=== PATIENT | male | born 1950 | race Caucasian/White ===

== ENCOUNTER 2022-12-01 10:54 | Outpatient (OUT) | payer MEDICARE, SELFPAY ==
--- NOTE | 2022-12-01 11:04 | ECG_ITS ---
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
--- NOTE | 2022-12-01 11:24 | XR_ITS ---
[address] [address] Patient Name: LUCIE HIGH MRN: [id number] date: 1950 Sex: M Assigned Patient Location: [facility] Current Patient Location: [facility] Accession/Order Number: [id number] Exam Date: 12/01/2022 11:49 Report Date: 12/01/2022 12:16 At the request of: ONOFRE AHN Procedure: XR chest 2V EXAM: XR chest 2V HISTORY: CAD COMPARISON: None. TECHNIQUE: PA and lateral views of the chest. FINDINGS: The cardiomediastinal silhouette is normal. No focal consolidation is identified. There is no pneumothorax. No pleural effusion is noted. The osseous structures are intact. IMPRESSION: No acute cardiopulmonary process. Electronically authenticated by: GERRY CORREA Date: 12/01/2022 12:16
[2022-12-01 11:58] LABS: Basophils Absolute Auto 0.1 10^3/uL (0.0-0.1); Basophils Percent Auto 0.8 % (0.2-2.0); Eosinophils Absolute Auto 0.5 10^3/uL (0.0-0.7); Hematocrit 44.4 % (42.0-54.0); Hemoglobin 14.4 g/dL (14.0-18.0); Immature Granulocytes Abs Auto 0.04 10^3/uL (0.00-0.03); Immature Granulocytes Pct Auto 0.5 % (0.0-0.5); Lymphocytes Percent Auto 26.9 % (20.5-60.0); Mean Corpuscular HGB Conc 32.4 g/dL (29.9-35.2); Mean Corpuscular Hemoglobin 27.1 pg (25.9-34.0); Mean Corpuscular Volume 83.5 fL (80.0-94.0); Mean Platelet Volume 8.8 fL (9.5-13.5); Monocytes Absolute Auto 0.6 10^3/uL (0.3-0.8); Monocytes Percent Auto 7.5 % (1.7-12.0); Neutrophils Absolute Auto 4.3 10^3/uL (1.4-6.5); Neutrophils Percent Auto 57.3 % (43.0-75.0); Platelet Count 196 10^3/uL (150-450); Red Blood Count 5.32 10^6/uL (4.70-6.10); Red Cell Distribution Width 14.1 % (11.0-15.0); White Blood Count 7.6 10^3/uL (4.0-11.0)
[2022-12-01 12:24] LABS: INR 0.99; Prothrombin Time 10.5 sec (9.0-11.6)
[2022-12-01 12:36] LABS: Anion Gap 10.7; BUN Creatinine Ratio 13.6; Calcium 9.2 mg/dL (8.5-10.1); Carbon Dioxide 28.7 mmol/L (21.0-32.0); Chloride 103 mmol/L (98-107); Estimated GFR (African America >60 (>=60); Estimated GFR (Non-African Ame >60 (>=60); Glucose 139 mg/dL (74-106); Potassium 4.4 mmol/L (3.5-5.1); Sodium 138 mmol/L (136-145)
== END 2022-12-01 10:55 | disposition home or self-care (01) ==
LOC: PST 10:56
PROVIDERS: Surgery; PCP Internal Medicine
DX: Z01.812 Encounter for preprocedural laboratory examination (principal); Z01.810 Encounter for preprocedural cardiovascular examination; K40.90 Unilateral inguinal hernia, without obstruction or gangrene, not specified as recurrent; Z01.818 Encounter for other preprocedural examination
CPT/HCPCS: 36415; 71046; 80048; 85025; 85610; 85730; 93005

== ENCOUNTER 2022-12-10 11:39 | Observation (INO) | payer MEDICARE, SELFPAY ==
[2022-12-01 11:23] VITALS: BP 171/93; PULSE 75; RESP 18; TEMP 36.3; O2SAT 95; BMI 31.3
[2022-12-10] VITALS (24 sets, daily range): BP systolic 145–173; BP diastolic 64–100; PULSE 66–79; RESP 2–23; TEMP 36.2–36.8; O2SAT 89–98; BMI 30.8
[2022-12-10 08:13] LABS: Glucometer 137 mg/dL (74-106)
[2022-12-10] MEDS: LACTATED RINGER'S SOLUTION 1,000 ML 50 ML IV ×2 (08:37→12:13)
[2022-12-10] MEDS: CEFAZOLIN SODIUM/DEXTROSE,ISO 2 GM/50 ML PIGGYBACK IV (09:24)
[2022-12-10] MEDS: BUPIVACAINE HCL 0.25% PF 25 MG/10 ML VIAL INJ (09:59)
[2022-12-10] MEDS: CEFAZOLIN SODIUM 1,000 MG VIAL 1000 MG IRR (10:11)
[2022-12-10] MEDS: 0.9 % SODIUM CHLORIDE 10 ML INJ (10:12)
[2022-12-10] MEDS: 0.9 % SODIUM CHLORIDE 1,000 ML 75 ML IV (10:53)
--- NOTE | 2022-12-10 11:35 | OP_ITS ---
OPERATION DATE: ??12/10/2022 PREOPERATIVE DIAGNOSIS:? Left inguinal hernia. POSTOPERATIVE DIAGNOSIS:? Indirect left inguinal hernia and cord lipoma. PROCEDURE:? Left inguinal herniorrhaphy with Bard 5 x 10 cm mesh insertion. SURGEON:? Dakota San M.D. ANESTHESIA:? General with laryngeal mask airway as well as left sided TAP block per Dr. Maurer. ESTIMATED BLOOD LOSS:? Less than 20 mL. INDICATIONS AND CONSENT:? Patient is a 72-year-old male with a long history of enlarging, left inguinal hernia going down into the scrotum that is non- reducible.? Indications, risks, benefits, alternatives of proceeding with herniorrhaphy with mesh insertion were explained extensively to the patient, including the risks of bleeding, infection, scarring, pain, recurrence, nerve injury, testicular injury, bowel injury, blood clot, pulmonary embolus, heart attack, anesthetic complications, need for further surgery or mesh removal.? All of his questions were answered.? Informed consent was obtained. PROCEDURE:? Patient brought to the operating room, placed in the supine position.? General anesthesia was induced.? Left sided TAP block was performed by Dr. Maurer.? Patient was prepped and draped in the usual sterile fashion.? A left groin incision was made in the area of the skin crease and carried down through subcutaneous tissue using sharp dissection as well as electrocautery.? Jovon?s fascia was divided.? The external oblique was opened along the dorsum of its fibers, down to the external inguinal ring.? Cord structures were then mobilized and retracted with a Declan drain.? There was noted to be a large cord lipomas as well as an indirect sac, with extensive scarring around the hernia sac.? The cord lipoma as well as hernia sac were freed up from the cord structures.? The scarred cremasteric fibers were divided.? The cord lipoma and hernia sac were reduced back through the enlarged internal ring.? This was then closed with interrupted 2-0 Prolene suture.? The wound was irrigated with antibiotic saline.? There was good hemostasis.? The Bard patch was then trimmed and a keyhole was created.? It was placed in the floor of the inguinal canal.? The arms were placed around the cord structures.? It was then secured circumferentially using interrupted 3-0 Monocryl sutures with good hemostasis.? Care was taken to avoid undue tension on the cord structures. ?The wound was irrigated with antibiotic saline.? There was good hemostasis.? The external oblique was closed with running 3-0 Vicryl suture.? The remaining Exparel solution was injected into the subcutaneous tissue.? Jovon?s fascia was re- approximated with interrupted 3-0 Monocryl suture.? The skin was then closed with a running 4-0 subcuticular Monocryl suture and skin glue.? Sterile pressure dressing was applied.? Sponge and needle counts were correct x2 per nursing personnel.? Patient tolerated procedure well, was extubated and sent to recovery room in good condition. CC:? Weston Borja M.D. YANN
--- NOTE | 2022-12-10 12:37 | PC.NURSE ---
BULKY DRESSING LEFT GROIN AREA CLEAR DRY AND INTACT.
[2022-12-10] MEDS: KETOROLAC TROMETHAMINE 30 MG/ML VIAL 15 MG IVP ×3 (13:11→23:58)
--- NOTE | 2022-12-10 13:25 | PC.NURSE ---
1202 THIS PATIENT WAS TRANSFERED TO MED SURG AND REPORT WAS GIVEN TO JAZMINE RANGEL RN.
[2022-12-10] MEDS: METFORMIN HCL 500 MG TABLET PO (18:19)
[2022-12-10] MEDS: CARVEDILOL 12.5 MG TABLET PO (18:53)
[2022-12-10 20:41] LABS: Glucometer 196 mg/dL (74-106)
[2022-12-10] MEDS: DOCUSATE SODIUM 100 MG CAPSULE PO (21:20)
[2022-12-10] MEDS: INSULIN ASPART 300 UNIT/3 ML PEN SUBQ (21:20)
[2022-12-11 05:20] VITALS: BP 159/74; PULSE 76; RESP 18; TEMP 36.8; O2SAT 94
[2022-12-11 05:21] LABS: Basophils Percent Auto 0.3 % (0.2-2.0); Eosinophils Percent Auto 0.1 % (0.9-7.0); Hematocrit 38.6 % (42.0-54.0); Hemoglobin 12.7 g/dL (14.0-18.0); Immature Granulocytes Abs Auto 0.04 10^3/uL (0.00-0.03); Immature Granulocytes Pct Auto 0.4 % (0.0-0.5); Lymphocytes Absolute Auto 1.7 10^3/uL (1.2-3.8); Lymphocytes Percent Auto 16.1 % (20.5-60.0); Mean Corpuscular HGB Conc 32.9 g/dL (29.9-35.2); Mean Corpuscular Hemoglobin 27.3 pg (25.9-34.0); Mean Platelet Volume 9.3 fL (9.5-13.5); Monocytes Absolute Auto 1.1 10^3/uL (0.3-0.8); Monocytes Percent Auto 10.5 % (1.7-12.0); Neutrophils Absolute Auto 7.6 10^3/uL (1.4-6.5); Neutrophils Percent Auto 72.6 % (43.0-75.0); Platelet Count 182 10^3/uL (150-450); Red Blood Count 4.65 10^6/uL (4.70-6.10); White Blood Count 10.4 10^3/uL (4.0-11.0)
[2022-12-11 05:43] LABS: Anion Gap 13.6; BUN Creatinine Ratio 16.7; Calcium 8.6 mg/dL (8.5-10.1); Carbon Dioxide 25.4 mmol/L (21.0-32.0); Chloride 103 mmol/L (98-107); Estimated GFR (African America >60 (>=60); Estimated GFR (Non-African Ame >60 (>=60); Glucose 133 mg/dL (74-106); Sodium 138 mmol/L (136-145)
[2022-12-11] MEDS: KETOROLAC TROMETHAMINE 30 MG/ML VIAL 15 MG IVP (06:01)
--- NOTE | 2022-12-11 08:02 | PM.GSPN ---
Progress Note: A&P Assessment and Plan (1) Incarcerated left inguinal hernia: Plan doing well; discharge to home; regular diet, no lifting > 10 lbs for 4 weeks; no driving while taking the pain medication; may shower, no tub baths; take ibuprofen as needed for pain with food; [place] if more severe pain; take colace daily if taking [place]; follow up in 1 week, call with problems/questions. Subjective Subjective Interval history: POD # 1 s/p LIHR with mesh for large indirect hernia doing well, pain controlled with Toradol, voiding well, ambulating; tolerating regular diet. Exam Constitutional Vital Signs, click to edit/add: Last Vital Signs Temp 98.3 F 12/11/22 05:20 Pulse 76 12/11/22 05:20 Resp 18 12/11/22 05:20 BP 159/74 H 12/11/22 05:20 Pulse Ox 94 L 12/11/22 05:20 O2 Del Method Room Air 12/11/22 05:20 O2 Flow Rate 2 12/10/22 11:52 GI Other: obese, soft, normal bs, nontender, nondistended; incision without erythema or drainage, no ecchymoses.
[2022-12-11] MEDS: DOCUSATE SODIUM 100 MG CAPSULE PO (08:48)
[2022-12-11] MEDS: SOLIFENACIN SUCCINATE 10 MG TABLET PO (08:48)
[2022-12-11] MEDS: CARVEDILOL 12.5 MG TABLET PO (08:48)
[2022-12-11] MEDS: METFORMIN HCL 500 MG TABLET PO (08:48)
--- NOTE | 2022-12-11 09:01 | CM.NOTE ---
Rounds made with roberth [place] for discharge to home today. No discharge needs identified, pt will also f/u with Dr. San
--- NOTE | 2022-12-11 09:44 | PM.PN ---
Progress Note: Subjective Subjective Interval history: Asked to see patient in postop. For management of diabetes and hypertension. Patient with no complaints this morning Exam Constitutional Vital Signs, click to edit/add: Last Vital Signs Temp 98.3 F 12/11/22 05:20 Pulse 76 12/11/22 05:20 Resp 18 12/11/22 05:20 BP 159/74 H 12/11/22 05:20 Pulse Ox 94 L 12/11/22 05:20 O2 Del Method Room Air 12/11/22 05:20 O2 Flow Rate 2 12/10/22 11:52 Chest Common normals: inspection of chest normal Respiratory Common normals: normal respiratory effort Cardio Common normals: regular rate and regular rhythm Progress Note: Objective Labs Labs: Short CBC 12/11/22 Range/Units 04:40 WBC 10.4 (4.0-11.0) 10^3/uL Hgb 12.7 L (14.0-18.0) g/dL Hct 38.6 L (42.0-54.0) % Plt Count 182 (150-450) 10^3/uL BMP 12/11/22 04:40 Sodium 138 Potassium 4.0 Chloride 103 Carbon Dioxide 25.4 BUN 16.0 Creatinine 0.96 Glucose 133 H Calcium 8.6 Progress Note: A&P Assessment and Plan (1) Incarcerated left inguinal hernia: (2) Diabetes: Assessment and Plan: Sugar is up a little bit with the surgery. Not significantly. We will not need insulin at home. Medically stable for discharge (3) Hypertension: Assessment and Plan: Fairly well-controlled, likely to go up a little bit with surgery. Maintain current medications at home
== END 2022-12-11 09:42 | disposition home or self-care (01) ==
LOC: MS 12:53 → SURGOUT 12-11 07:59
PROVIDERS: Admitting Provider Surgery; PCP Internal Medicine; Visit Provider Surgery
PROC: (CPT 49507; principal; 2022-12-10 10:00)
DX: K40.30 Unilateral inguinal hernia, with obstruction, without gangrene, not specified as recurrent (principal); I25.10 Atherosclerotic heart disease of native coronary artery without angina pectoris; I10 Essential (primary) hypertension; E11.9 Type 2 diabetes mellitus without complications; E78.00 Pure hypercholesterolemia, unspecified; K21.9 Gastro-esophageal reflux disease without esophagitis; I25.2 Old myocardial infarction; N40.1 Benign prostatic hyperplasia with lower urinary tract symptoms; R39.11 Hesitancy of micturition; R35.1 Nocturia; E66.9 Obesity, unspecified; R39.15 Urgency of urination; R39.12 Poor urinary stream; D17.6 Benign lipomatous neoplasm of spermatic cord; Z79.82 Long term (current) use of aspirin; Z79.899 Other long term (current) drug therapy; Z79.84 Long term (current) use of oral hypoglycemic drugs; Z68.33 Body mass index [BMI] 33.0-33.9, adult
CPT/HCPCS: 49507; 36415; 64488; 80048; 82948; 85025; 94667; 94668; 94761; 96374; 96376; C1781; G0378; J2704

== ENCOUNTER 2023-01-26 00:08 | Emergency (ER) | payer MEDICARE, SELFPAY ==
[2023-01-26 00:12] VITALS: BP 171/86; PULSE 82; RESP 18; TEMP 36.7; O2SAT 98; BMI 28.7
--- NOTE | 2023-01-26 00:27 | PC.NURSE ---
patient states he has sensation of tingling, cold , and burning to both legs. states it goes from feet up to knees. patient is ambulatory from waiting room to ER room with independent and steady gait, also states he was able to drive himself to the ER. patient states he is currently taking cipro and read that tendinitis can be a side effect of the medication and he is worried that is what he is currently experiencing.
--- NOTE | 2023-01-26 00:37 | ED.GENADUL1 ---
HPI - General Adult General Chief complaint: Extremity Injury, Lower Stated complaint: NUMBNESS IN BOTH LEGS Time Seen by Provider: 01/26/23 00:21 Source: patient Mode of arrival: walk-in History of Present Illness HPI narrative: chronic history of peripheral neuropathy of his lower extremities for at least the past 4 years. 1.5 weeks ago diagnosed with Colitis and prescribed Cipro and Flagyl. Developed worsening neuropathy and decided it was from Cipro and d/kelsey it . then developed diarrhea and felt it was related to Flagyl. . Seen by his doctor and directed to use antacids and follow liquid diet and use probiotics. States his abdomen has finally improved. Tonight again concerned about neuropathy of his legs. No weakness or fever Related Data Home Medications Medication Instructions Recorded Confirmed aspirin 81 mg tablet,delayed 81 mg PO DAILY 12/01/22 01/26/23 release (Adult Aspirin Regimen) carvedilol 12.5 mg tablet 12.5 mg PO Q12H 12/01/22 01/26/23 fluticasone propionate 50 1 spray intranasal Q12H 12/01/22 01/26/23 mcg/actuation nasal spray,suspension losartan 50 mg-hydrochlorothiazide 1 tab PO QDAY 12/01/22 01/26/23 12.5 mg tablet metformin 1,000 mg tablet 500 mg PO BID 12/01/22 01/26/23 rosuvastatin 5 mg tablet 5 mg PO QDAY 12/01/22 01/26/23 tolterodine 4 mg capsule,extended 4 mg PO Q24H 12/01/22 12/10/22 release 24 hr Previous Rx's Medication Instructions Recorded hydrocodone 5 mg-acetaminophen 325 1 tab PO Q6H PRN Pain Scale 4-6 12/11/22 mg tablet #12 tabs Allergies Allergy/AdvReac Type Severity Reaction Status Date / Time Penicillins Allergy muscle Verified 01/26/23 00:12 numbness Review of Systems ROS Status of ROS 10 or more systems reviewed and unremarkable except as noted in history and below [facility] Medical History (Updated 01/26/23 @ 01:54 by Brett Garduno MD) Surgical History (Updated 12/10/22 @ 08:10 by Gisselle Nagel) Family History (Updated 12/01/22 @ 11:31 by Jayda Martinez NP) Other Family history of heart disease Family history of hypertension Family history of myocardial infarction Family history of skin cancer Social History (Updated 12/01/22 @ 11:22 by Jayda Martinez NP) Within the past year, how often did you have a drink containing alcohol: monthly or less Smoking status: Never smoker Non-prescribed substance use: denies use Highest level of school completed/degree received: high school graduate Exam Constitutional Vital Signs, click to edit/add: Last Vital Signs Temp 98.1 F 01/26/23 00:12 Pulse 82 01/26/23 00:12 Resp 18 01/26/23 00:12 BP 171/86 H 01/26/23 00:12 Pulse Ox 98 01/26/23 00:12 O2 Del Method Room Air 01/26/23 00:12 Common normals: no apparent distress, average body habitus, no limitations, healthy appearing and alert Eye Common normals: EOMs intact bilaterally and conjunctivae normal Respiratory Common normals: normal respiratory effort, no retractions, no use of accessory muscles and clear to auscultation bilaterally Cardio Common normals: regular rate, regular rhythm, S1 normal heart sound and S2 normal heart sound GI Common normals: Normal to inspection, nondistended, normoactive bowel sounds present, soft to palpation and non-tender Extremity Common normals: normal to inspection and full ROM Neuro Common normals: oriented x3, CN's II-XII intact bilaterally, moves all extremities and no focal motor deficits Psych Appearance: grossly normal Course Vital Signs Vital signs: Vital Signs Temperature 98.1 F 01/26/23 00:12 Pulse Rate 82 01/26/23 00:12 Respiratory Rate 18 01/26/23 00:12 Blood Pressure 171/86 H 01/26/23 00:12 Pulse Oximetry 98 01/26/23 00:12 Oxygen Delivery Method Room Air 01/26/23 00:12 Temperature 98.1 F 01/26/23 00:12 Pulse Rate 82 01/26/23 00:12 Respiratory Rate 18 01/26/23 00:12 Blood Pressure 171/86 H 01/26/23 00:12 Pulse Oximetry 98 01/26/23 00:12 Oxygen Delivery Method Room Air 01/26/23 00:12 Medical Decision Making MDM Narrative Medical decision making narrative: patient has chronic history of peripheral neuropathy. Describes taking cipro for only a few days and worsening of his neuropathy. Exam tonight unremarkable except for known neuropathy. B12 level pending but patient did not want to wait for the results. Discharged home to follow up with his doctor. Discharged in stable condition Lab Data Labs: Lab Results 01/26/23 Range/Units 00:48 WBC 7.1 (4.0-11.0) 10^3/uL RBC 5.03 (4.70-6.10) 10^6/uL Hgb 13.5 L (14.0-18.0) g/dL Hct 41.8 L (42.0-54.0) % MCV 83.1 (80.0-94.0) fL MCH 26.8 (25.9-34.0) pg MCHC 32.3 (29.9-35.2) g/dL RDW 13.6 (11.0-15.0) % Plt Count 204 (150-450) 10^3/uL MPV 9.3 L (9.5-13.5) fL Neut % (Auto) 47.5 (43.0-75.0) % Lymph % (Auto) 36.3 (20.5-60.0) % [place] % (Auto) 9.9 (1.7-12.0) % Eos % (Auto) 5.4 (0.9-7.0) % Baso % (Auto) 0.6 (0.2-2.0) % Neut # (Auto) 3.4 (1.4-6.5) 10^3/uL Lymph # (Auto) 2.6 (1.2-3.8) 10^3/uL [place] # (Auto) 0.7 (0.3-0.8) 10^3/uL Eos # (Auto) 0.4 (0.0-0.7) 10^3/uL Baso # (Auto) 0.0 (0.0-0.1) 10^3/uL Abs Immat Gran (auto) 0.02 (0.00-0.03) 10^3/uL Imm/Tot Granulo (auto) 0.3 (0.0-0.5) % Sodium 134 L (136-145) mmol/L Potassium 4.0 (3.5-5.1) mmol/L Chloride 100 (98-107) mmol/L Carbon Dioxide 28.2 (21.0-32.0) mmol/L Anion Gap 9.8 BUN 10.0 (7.0-18.0) mg/dL Creatinine 1.13 (0.70-1.30) mg/dL Est GFR ( Amer) >60 (>=60) Est GFR (Non-Af Amer) >60 (>=60) BUN/Creatinine Ratio 8.8 Glucose 123 H (74-106) mg/dL Calcium 8.9 (8.5-10.1) mg/dL Magnesium 1.9 (1.8-2.4) mg/dL Discharge Plan Discharge Chief Complaint: Extremity Injury, Lower Clinical Impression: Peripheral neuropathy Patient Disposition: Home, Self-Care Prescriptions / Home Meds: No Action aspirin [Adult Aspirin Regimen] 81 mg tablet,delayed release (DR/EC) 81 mg PO DAILY carvedilol 12.5 mg tablet 12.5 mg PO Q12H fluticasone propionate 50 mcg/actuation spray,suspension 1 spray INTRANASAL Q12H losartan-hydrochlorothiazide 50-12.5 mg tablet 1 tab PO QDAY metformin 1,000 mg tablet 500 mg PO BID rosuvastatin 5 mg tablet 5 mg PO QDAY tolterodine 4 mg capsule,extended release 24hr 4 mg PO Q24H hydrocodone-acetaminophen 5-325 mg Tablet 1 tab PO Q6H PRN (Reason: Pain Scale 4-6) Qty: 12 0RF Instructions: Peripheral Neuropathy (ED) Additional Instructions: follow up with Dr Borja in the next few days Stand Alone Forms: Portal Instructions Referrals: GERSON BORJA [Primary Care Provider] - 1 week
[2023-01-26 00:58] LABS: Basophils Percent Auto 0.6 % (0.2-2.0); Eosinophils Absolute Auto 0.4 10^3/uL (0.0-0.7); Eosinophils Percent Auto 5.4 % (0.9-7.0); Hematocrit 41.8 % (42.0-54.0); Hemoglobin 13.5 g/dL (14.0-18.0); Immature Granulocytes Abs Auto 0.02 10^3/uL (0.00-0.03); Immature Granulocytes Pct Auto 0.3 % (0.0-0.5); Lymphocytes Absolute Auto 2.6 10^3/uL (1.2-3.8); Lymphocytes Percent Auto 36.3 % (20.5-60.0); Mean Corpuscular HGB Conc 32.3 g/dL (29.9-35.2); Mean Corpuscular Hemoglobin 26.8 pg (25.9-34.0); Mean Corpuscular Volume 83.1 fL (80.0-94.0); Mean Platelet Volume 9.3 fL (9.5-13.5); Monocytes Absolute Auto 0.7 10^3/uL (0.3-0.8); Monocytes Percent Auto 9.9 % (1.7-12.0); Neutrophils Absolute Auto 3.4 10^3/uL (1.4-6.5); Neutrophils Percent Auto 47.5 % (43.0-75.0); Platelet Count 204 10^3/uL (150-450); Red Blood Count 5.03 10^6/uL (4.70-6.10); Red Cell Distribution Width 13.6 % (11.0-15.0); White Blood Count 7.1 10^3/uL (4.0-11.0)
[2023-01-26 01:10] LABS: Anion Gap 9.8; BUN Creatinine Ratio 8.8; Calcium 8.9 mg/dL (8.5-10.1); Carbon Dioxide 28.2 mmol/L (21.0-32.0); Chloride 100 mmol/L (98-107); Estimated GFR (African America >60 (>=60); Estimated GFR (Non-African Ame >60 (>=60); Glucose 123 mg/dL (74-106); Magnesium 1.9 mg/dL (1.8-2.4); Sodium 134 mmol/L (136-145)
== END 2023-01-26 01:57 | disposition home or self-care (01) ==
PROVIDERS: Emergency Provider Internal Medicine; PCP Internal Medicine
DX: G62.9 Polyneuropathy, unspecified (principal); Z79.899 Other long term (current) drug therapy; Z79.82 Long term (current) use of aspirin; Z79.84 Long term (current) use of oral hypoglycemic drugs
CPT/HCPCS: 36415; 80048; 82607; 83735; 85025; 99283

== ENCOUNTER 2023-02-24 12:57 | Outpatient (RCR) | payer MEDICARE, SELFPAY | END 2023-03-27 16:33 | disposition home or self-care (01) | LOC: PT 12:57 | PROVIDERS: PCP Internal Medicine; Visit Provider Internal Medicine | DX: M54.50 Low back pain, unspecified (principal); M54.59 Other low back pain; M54.16 Radiculopathy, lumbar region; R29.3 Abnormal posture; R26.89 Other abnormalities of gait and mobility; R26.9 Unspecified abnormalities of gait and mobility | CPT/HCPCS: 97010; 97110; 97161 ==

== ENCOUNTER 2023-03-12 09:55 | Outpatient (REF) | payer MEDICARE, SELFPAY ==
[2023-03-12 14:46] LABS: SARS-CoV-2 NAA NOT DETECTED (NOT DETECTE)
== END 2023-03-12 09:56 | disposition home or self-care (01) ==
LOC: LAB 09:55
PROVIDERS: PCP Internal Medicine; Visit Provider Internal Medicine
DX: Z20.822 Contact with and (suspected) exposure to COVID-19 (principal); R05.1 Acute cough
CPT/HCPCS: 87635

== ENCOUNTER 2023-11-26 15:25 | Outpatient (OUT) | payer MEDICARE, SELFPAY ==
--- NOTE | 2023-11-26 | XR_ITS ---
The [address] [address] Patient Name: LUCIE HIGH MRN: [id number] date: 1950 Sex: M Assigned Patient Location: [facility] Current Patient Location: [facility] Accession/Order Number: [id number] Exam Date: 11/26/2023 15:40 Report Date: 11/26/2023 15:56 At the request of: GERSON RODRIGUEZ Procedure: XR hip JAMIE EXAMINATION: XR hip JAMIE HISTORY: Bilateral hip pain m25.551, m25.552 COMPARISON: No relevant comparison available. FINDINGS: RIGHT FINDINGS: BONES: No acute fracture or dislocation. Mild degenerative osteoarthropathy with joint space narrowing marginal osteophyte formation. SOFT TISSUES: Negative. No visible soft tissue swelling. OTHER: Negative. LEFT FINDINGS: BONES: No acute fracture or dislocation. Mild degenerative osteoarthropathy with joint space narrowing marginal osteophyte formation. SOFT TISSUES: Negative. No visible soft tissue swelling. OTHER: Negative. XR/XR hip JAMIE IMPRESSION: Mild bilateral hip osteoarthritis Electronically authenticated by: KALEB MURO Date: 11/26/2023 15:56
--- NOTE | 2023-11-26 | XR_ITS ---
The [address] [address] Patient Name: LUICE HIGH MRN: [id number] date: 1950 Sex: M Assigned Patient Location: [facility] Current Patient Location: [facility] Accession/Order Number: [id number] Exam Date: 11/26/2023 15:40 Report Date: 11/26/2023 16:14 At the request of: GERSON RODRIGUEZ Procedure: XR lumbar spine 2-3V EXAMINATION: XR lumbar spine 2-3V HISTORY: Bilateral hip pain m25.551, m25.552 r COMPARISON: No relevant comparison available. FINDINGS: BONES: 9 mm anterolisthesis of L5 in relation S1. 4 mm retrolisthesis of L1 on L2. Mild spondylosis. Moderate to severe facet osteoarthropathy DISC SPACES: Multilevel disc space narrowing. Vacuum disc L5-S1. PARASPINOUS: Negative. No paraspinous abnormality is seen. OTHER: Negative. XR/XR lumbar spine 2-3V IMPRESSION: Moderate to severe degenerative changes with multilevel spondylolisthesis Electronically authenticated by: KALEB MURO Date: 11/26/2023 16:14
== END 2023-11-26 15:26 | disposition home or self-care (01) ==
LOC: RAD 15:28
PROVIDERS: PCP Internal Medicine; Visit Provider Internal Medicine
DX: M25.551 Pain in right hip (principal); M25.552 Pain in left hip; M16.0 Bilateral primary osteoarthritis of hip
CPT/HCPCS: 72100; 73522

== ENCOUNTER 2024-07-17 22:41 | Emergency (ER) | payer MEDICARE, SELFPAY ==
[2024-07-17] VITALS (9 sets, daily range): BP systolic 169–201; BP diastolic 81–92; PULSE 73–81; TEMP 36.8; O2SAT 96–98; BMI 31.6
--- OUTSIDE RECORDS SUMMARY | 2024-07-17 22:47 | XMS_ITS | CCD ---
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 Cosmo Torrez Attending Unavailable Emily BARRERA, Dr. Cosmo Torrez Referring Unavailable WESTON BORJA Primary Care Physician [phone] LEONARD ESPITIA Admitting Unavailable JENNIFER, DR NIETO Primary Care Unavailable LEONARD ESPITIA Attending Unavailable LEONARD ESPITIA Consulting Unavailable ZENIPPKALEB REESE Unavailable JENNIFER, DR NIETO Admitting Unavailable JENNIFER, DR NIETO Attending Unavailable JENNIFER, DR NIETO Consulting Unavailable JENNIFER, DR NIETO Primary Care Unavailable TESMOND, FRANKIE Primary Care Unavailable TESMOND, FRANKIE Admitting Unavailable TESMOND, FRANKIE Attending Unavailable TESORAL, FRANKIE Consulting Unavailable TESORAL, FRANKIE Primary Care Unavailable TESORAL, FRANKIE Admitting Unavailable TESMOND, FRANKIE Attending Unavailable TESORAL, FRANKIE Consulting Unavailable BORJA, DR NIETO Primary Care Unavailable HEMMER, DR TITA Juarez Attending Unavailable HEMMER, DR TITA Juarez Consulting Unavailable HEMMER, DR TITA Juarez Admitting Unavailable JENNIFER, DR NIETO Primary Care Unavailable SYLVIAUINMaxine, DR VANG Attending Unavailable MCGUINN, DR VANG Consulting Unavailable SYLVIAUINN, DR VANG Admitting Unavailable LEONARD ESPITIA Admitting Unavailable JENNIFER, DR NIETO Primary Care Unavailable LEONARD ESPITIA Attending Unavailable LEONARD ESPITIA Consulting Unavailable NILLDakota Attending Unavailable NILL, Dakota Hoang Attending Unavailable NILL, Dakota Hoang Attending Unavailable NILL, Dakota Hoang Attending Unavailable NILL, Dakota Hoang Attending Unavailable NILL, Dakota Hoang Attending Unavailable Shan SU Attending Unavailable WESTON BORJA Referring Unavailable Dakota AHN Attending Unavailable Weston Borja Unavailable Unavailable Unavailable Weston Borja MD Unavailable [phone] Weston Borja MD Primary Care Provider Thursday MOUNTER SOUSAPHONESMercedez Unavailable TITA WESTBROOK Attending Unavailable PALOMINOTAMARA HARO Attending Unavailable BORJA, WESTON B Attending Unavailable BROWN, BRAXTON Sun Attending Unavailable BORJA, WESTON B Referring Unavailable TAMARA PALOMINO Attending Unavailable BROWN, BRAXTON A Attending Unavailable BROWN, BRAXTON A Attending Unavailable BORJA, WESTON B Attending Unavailable BROWN, BRAXTON A Attending Unavailable BORJA, WESTON B Attending Unavailable BORJA, WESTON B Attending Unavailable BLACKSTON, ALEXIS Barbosa Attending Unavailable BORJA, WESTON B Referring Unavailable BRINK, SYBIL Attending Unavailable BORJA, WESTON B Referring Unavailable BRINK, SYBIL Attending Unavailable BORJA, WESTON B Referring Unavailable BRINK, SYBIL Attending Unavailable BORJA, WESTON B Referring Unavailable BORJA, WESTON B Attending Unavailable BLACKSTON, ALEXIS T Attending Unavailable BORJA, WESTON B Referring Unavailable BRINK, SYBIL Attending Unavailable BORJA, WESTON B Referring Unavailable BLACKSTON, ALEXIS T Attending Unavailable BORJA, WESTON B Referring Unavailable KELBLEYCLARISA Attending Unavailable BORJA, WESTON B Referring Unavailable BRINK, SYBIL Attending Unavailable BORJA, WESTON B Referring Unavailable BRINK, SYBIL Attending Unavailable BORJA, WESTON B Referring Unavailable BRINK, SYBIL Attending Unavailable BORJA, WESTON B Referring Unavailable BRINK, SYBIL Attending Unavailable BORJA, WESTON B Referring Unavailable BRINK, SYBIL Attending Unavailable BORJA, WESTON B Referring Unavailable BORJA, WESTON B Attending Unavailable Allergies Allergy Classification Reported Allergen(s) Allergy Type Date of Onset Reaction(s) Facility (1 source) Penicillin G Drug Allergy Unknown [facility] Other (20 sources) Penicillins; Translations: [penicillins] Drug allergy 3 Asthenia (finding) [facility] (20 sources) Penicillin V Drug Allergy 3 [facility] (20 sources) Ciprofloxacin Drug Allergy 4 Other [facility] Work Phone: Medications Current Medications Medication Drug Class(es) Dates Sig (Normalized) Sig (Original) aspirin 81 mg oral tablet (7 sources) Platelet Aggregation Inhibitor, Nonsteroidal Anti-inflammatory Drug Start: 04-05-2019 take 1 tablet by mouth once daily aspirin 81 mg oral tablet 81 mg = 1 tab(s), Oral, Daily, Refills(s) 0 Start Date: 04/05/19 Status: Ordered Aspirin EC 81 MG TBEC TAKE 1 TABLET DAILY. Quantity: 0 Refills: 0 Ordered: 01-Sep-2022 DO Active take 1 tablet by basim th every twenty-four hours Aspirin 81 MG 1 tablet Orally Once a day Active carvedilol 12.5 mg oral tablet (20 sources) alpha-Adrenergic Horacio, beta-Adrenergic Horacio Start: 12-08-2023 Carvedilol Activ e MG PO December 08, 2023 12:00am Start: 10-01-2022 End: 04-20-2024 carvedilol (Coreg) 12.5 MG t ablet Indications: Essential (primary) hypertension (CMS/HCC) TAKE 1 TABLET TWICE DAILY 180 tablet 3 04/20/2024 Active Coreg 3.125 MG O rally Active fluticasone propionate 0.05 mg/actuat metered dose nasal spray (20 sources) Corticosteroid Start: 05-10-2024 take 2 spray(s) nasal route once daily fluticasone (Flonase) 50 MCG/ACT nasal spray Indications: Lesion of nasal cavity SPRAY 2 SPRAYS INTO EACH NOSTRIL EVERY DAY 16 mL 1 05/10/2024 Active Start: 12-11-2023 take 2 spray(s) nasa l route once daily fluticasone (Flonase) 50 MCG/ACT nasal spray Indications: Lesion of nasal cavity USE 2 SPRAYS IN EACH NOSTRIL EVERY DAY 16 mL 1 12/11/2023 Active Start: 12-08-2023 Fluticasone Pr opionate Active INTRANASAL December 08, 2023 12:00am Start: 02-16-2023 take 2 spray(s) nasa l route once daily fluticasone (Flonase) 50 MCG/ACT nasal spray Indications: Lesion of nasal cavity INHALE 2 SPRAYS IN EACH NOSTRIL EVERY DAY 16 g 3 02/16/2023 Active Start: 09-29-2022 Flonase 0.05 m g/inh [place] 2 spray(s), Nasal, Daily, Refill(s) 0 Start Date: 09/29/22 Status: Ordered take 50 ug nasal rou te once daily Flonase Allergy Relief 50 MCG/ACT Nasal Suspension USE 1 TO 2 SPRAYS IN EACH NOSTRIL ONCE DAILY. 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 0 09/01/2022 Active Start: 09-01-2022 take 1 tablet by basim th once daily hydrochlorothiazide-losartan 12.5 mg-50 mg Tab 1 tab(s), Oral, Daily, Refill(s) 0 Start Date: 10/01/22 Status: Ordered metFORMIN hydrochloride 500 mg oral tablet (7 sources) Biguanide Start: 10-01-2022 take 1 tablet by mouth twice daily metformin 500 mg Tab 500 mg = 1 tab(s), Oral, BID, Refills(s) 0 Start Date: 10/01/22 Status: Ordered take 1 tablet by basim th every twelve hours at mealtime metFORMIN HCl - 500 MG Oral Tablet TAKE 1 TABLET EVERY 12 HOURS WITH FOOD. Quantity: 0 Refills: 0 Ordered: 01-Sep-2022 DO Active take 1 tablet by basim th every twenty-four hours metFORMIN HCl 1000 MG 1 tablet with a me al Orally Once a day Active nitrofurantoin, macrocrystals 25 mg / nitrofurantoin, monohydrate 75 mg oral capsule (4 sources) Nitrofuran Antibacterial Start: 03-16-2024 End: 03-23-2024 take 1 capsule by mouth in the morning nitrofurantoin, macrocrystal-monohydrate, (Macrobid) 100 MG capsule Indications: Acute cystitis with hematuria Take 1 capsule (100 mg) by mouth in the morning and 1 capsule (100 mg) before bedtime. Do all this for 7 days. 14 capsule 03/16/2024 03/23/2024 Active Start: 03-07-2024 End: 03-14-2024 take 1 capsule by mouth in the morning nitrofurantoin, macrocrystal-monohydrate , (Macrobid) 100 MG capsule Indications: Acute cystitis with hematuria Take 1 capsule (100 mg) by mouth in the morning and 1 capsule (100 mg) before bedtime. Do all this for 5 days. 10 capsule 03/07/2024 03/14/2024 Discontinued rosuvastatin calcium 5 mg oral tablet (20 sources) HMG-CoA Reductase Inhibitor Start: 12-08-2023 Rosuvastatin Active MG PO December 08, 2023 12:00am Start: 04-05-2019 End: 04-20-2024 rosuvastatin (Crestor) 5 MG tablet Indications: Pure hypercholesterolemia, unspecified (CMS/HCC) TAKE 1 TABLET AT BEDTIME 90 tablet 3 04/20/2024 Active tamsulosin hydrochloride 0.4 mg oral capsule (20 sources) alpha-Adrenergic Horacio Start: 12-08-2023 Tamsu losin Active MG PO December 08, 2023 12:00am Start: 10-28-2023 End: 10-27-2024 take 1 capsule by mouth once daily tamsulosin (Flomax) 0.4 MG 24 hr capsule Indications: BPH with urinary obstruction Take 1 capsule (0.4 mg) by mouth Daily 30 capsule 11 10/28/2023 10/27/2024 Active thiamine 100 mg oral tablet (1 source) Start: 05-12-2023 End: 05-11-2024 take 1 tablet by mouth in the morning thiamine (Vitamin B-1) 100 MG tablet Indications: Idiopathic progressive neuropathy Take 1 tablet (100 mg) by mouth in the morning. 90 tablet 3 05/12/2023 05/11/2024 Active tolterodine tartrate 2 mg oral tablet (5 sources) Cholinergic Muscarinic Antagonist Start: 09-29-2022 take 1 tablet by mouth twice daily as needed for muscle spasms Detrol 2 mg Tab 2 mg = 1 tab(s), Oral, BID, PRN bladder spasm, Refills(s) 0 Start Date: 09/29/22 Status: Ordered Completed/Discontinued Medications Medication Drug Class(es) Dates Sig (Normalized) Sig (Original) furosemide 20 mg oral tablet (20 sources) Loop Diuretic Start: 12-10-2023 End: 05-16-2024 take 1 tablet by mouth once daily furosemide (Lasix) 20 MG tablet Indications: Localized edema Take 1 tablet (20 mg) by mouth Daily for 7 days 7 tablet 12/10/2023 05/16/2024 Discontinued pregabalin 75 mg oral capsule (20 sources) Start: 09-02-2023 End: 05-16-2024 take 1 capsule by mouth in the morning, then take 1 capsule by mouth in the evening, then take 1 capsule by mouth at bedtime pregabalin (Lyrica) 75 MG capsule Indications: Idiopathic progressive neuropathy Take 1 capsule (75 mg) by mouth in the morning and 1 capsule (75 mg) in the evening and 1 capsule (75 mg) before bedtime. 90 capsule 2 09/02/2023 05/16/2024 Discontinued Start: 05-12-2023 End: 08-10-2023 take 1 capsule by mouth in the morning, then take 1 capsule by mouth in the evening, then take 1 capsule by mouth at bedtime pregabalin (Lyrica) 25 MG capsule Indications: Idiopathic progressive neuropathy Take 1 capsule (25 mg) by mouth in the morning and 1 capsule (25 mg) in the evening and 1 capsule (25 mg) before bedtime. 270 capsule 0 05/12/2023 08/10/2023 Active Problems Active Problems Problem Classification Problem Date Documented Date Episodic/Chronic Acute myocardial infarction (20 sources) Myocardial infarction; Translations: [ST elevation (STEMI) myocardial infarction involving other coronary artery of inferior wall] Onset: 01-17-2023 05-09-2019 Chronic Administrative/social admission (2 sources) Patient encounter status; Translations: [Other specified counseling] 05-16-2024 Episodic Cardiac dysrhythmias (2 sources) Supraventricular tachycardia; Translations: [Paroxysmal supraventricular tachycardia] Onset: 10-02-2022 Chronic Cataract (20 sources) Bilateral age-related nuclear cataracts; Translations: [Age-related nuclear cataract, bilateral] Onset: 04-06-2023 04-06-2023 Chronic Coronary atherosclerosis and other heart disease (20 sources) Coronary arteriosclerosis; Translations: [Atherosclerotic heart disease of [place] coronary artery without angina pectoris] Onset: 08-19-2022 05-09-2019 Chronic Diabetes mellitus with complications (20 sources) Type 2 diabetes mellitus with diabetic mononeuropathy; Translations: [Diabetic peripheral neuropathy] Onset: 01-15-2022 12-22-2022 Chronic Diabetes mellitus without complication (20 sources) Diabetes mellitus; Translations: [Type 2 diabetes mellitus without complications] Onset: 10-02-2022 Resolved: 04-22-2023 05-09-2019 Chronic Disorders of lipid metabolism (20 sources) Hypercholesterolemia; Translations: [Mixed hyperlipidemia] Onset: 08-19-2022 05-09-2019 Chronic Esophageal disorders (20 sources) Gastroesophageal reflux disease; Translations: [Gastro-esophageal reflux disease without esophagitis] Onset: 12-22-2022 09-29-2022 Chronic Essential hypertension (20 sources) Hypertensive disorder; Translations: [Essential (primary) hypertension] Onset: 10-02-2022 05-09-2019 Chronic Hyperplasia of prostate (20 sources) Benign prostatic hypertrophy with outflow obstruction; Translations: [Benign prostatic hyperplasia with lower urinary tract symptoms] Onset: 01-17-2023 05-09-2019 Chronic Hypertension with complications and secondary hypertension (1 source) Hypertensive urgency; Translations: [HYPERTENSIVE URGENCY] Onset: 08-19-2022 Chronic Nonspecific chest pain (4 sources) Other chest pain; Translations: [OTHER CHEST PAIN] Onset: 08-17-2022 Episodic Occlusion or stenosis of precerebral arteries (13 sources) Occlusion and stenosis of multiple and bilateral cerebral arteries; Translations: [Occlusion and stenosis of bilateral carotid arteries] Onset: 11-12-2021 Resolved: 09-29-2022 Chronic Osteoarthritis (20 sources) Arthritis of left hip; Translations: [Unilateral primary osteoarthritis, left hip] Onset: 12-22-2022 12-22-2022 Chronic Other aftercare (1 source) MCC (current) use of aspirin; Translations: [RETIREMENT CURRENT USE OF ASPIRIN] Onset: 08-19-2022 Episodic Other aftercare (1 source) meterman (current) use of oral hypoglycemic drugs; Translations: [RETIREMENT USE ORAL HYPOGLYCEMIC DX] Onset: 08-19-2022 Episodic Other aftercare (1 source) Other correction (current) drug therapy; Translations: [OTH ACCOUNTING SOFTWARE SPECIALIST CURRENT DRUG THERAPY] Onset: 08-19-2022 Episodic Other circulatory disease (20 sources) Disorder of carotid artery; Translations: [Disorder of arteries and arterioles, unspecified] Onset: 12-22-2022 12-22-2022 Chronic Other diseases of bladder and urethra (1 source) Overactive bladder; Translations: [OVERACTIVE BLADDER] Onset: 07-22-2022 Chronic Other diseases of bladder and urethra (20 sources) Overactive bladder; Translations: [Overactive bladder] Onset: 12-22-2022 12-22-2022 Chronic Other ear and sense organ disorders (2 sources) Impacted cerumen of bilateral ears; Translations: [Impacted cerumen, bilateral] 06-29-2024 Episodic Other nervous system disorders (20 sources) Neuropathy; Translations: [Polyneuropathy, unspecified] Onset: 01-17-2023 05-09-2019 Chronic Other nervous system disorders (1 source) Peripheral nerve disease ; Translations: [Unspecified hereditary and idiopathic peripheral neuropathy] Chronic Other nutritional; endocrine; and metabolic disorders (20 sources) Body mass index 30+ - obesity; Translations: [Body mass index (BMI) 33.0-33.9, adult] Onset: 01-17-2023 10-01-2022 Chronic Other nutritional; endocrine; and metabolic disorders (4 sources) Obesity, unspecified; Translations: [OBESITY UNSPECIFIED] Onset: 09-26-2022 Chronic Other nutritional; endocrine; and metabolic disorders (20 sources) Obese class I; Translations: [Body mass index (BMI) 33.0-33.9, adult] Onset: 11-18-2022 Chronic Other nutritional; endocrine; and metabolic disorders (20 sources) Obesity; Translations: [Obesity, unspecified] Onset: 01-17-2023 11-18-2022 Chronic Other upper respiratory disease (2 sources) Nasal congestion; Translations: [Nasal congestion] 06-29-2024 Episodic Other upper respiratory disease (2 sources) Bleeding from nose; Translations: [Epistaxis] 06-29-2024 Episodic Spondylosis; intervertebral disc disorders; other back problems (20 sources) Degeneration of lumbar intervertebral disc; Translations: [Degenerative disc disease, lumbar] Onset: 12-10-2023 12-10-2023 Chronic Transient cerebral ischemia (1 source) Amaurosis fugax of right eye; Translations: [Amaurosis fugax] Chronic Unclassified (5 sources) Irreducible left inguinal hernia 10-01-2022 Unclassified (4 sources) COUGH, UNSPECIFIED; Translations: [COUGH, UNSPECIFIED] Onset: 07-21-2022 Unclassified (3 sources) CONTACT W/AND (SUSP) EXPOS COVID-19; Translations: [CONTACT W/AND (SUSP) EXPOS COVID-19] Onset: 12-28-2021 Urinary tract infections (2 sources) Acute cystitis; Translations: [Acute cystitis with hematuria] 03-14-2024 Episodic Viral infection (1 source) COVID-19; Translations: [COVID-19] Onset: 07-22-2022 Past or Other Problems Problem Classification Problem Date Documented Da te Episodic/Chronic Abdominal hernia (20 sources) Obstructed inguinal hernia; Translations: [Unilateral inguinal hernia, with obstruction, without gangrene, not specified as recurrent] Onset: 10-01-2022 Episodic Genitourinary symptoms and ill-defined conditions (20 sources) Delay when starting to pass urine; Translations: [[place] hematuria] Onset: 07-19-2022 05-09-2019 Episodic Heart valve disorders (20 sources) Heart murmur; Translations: [Cardiac murmur, unspecified] Onset: 08-02-2022 09-29-2022 Episodic Other diseases of bladder and urethra (20 sources) Urethral stricture; Translations: [Unspecified urethral stricture, male, unspecified site] Onset: 01-17-2023 05-09-2019 Episodic Other screening for suspected conditions (not mental disorders or infectious disease) (20 sources) Raised prostate specific antigen; Translations: [Elevated prostate specific antigen [PSA]] Onset: 01-17-2023 05-09-2019 Episodic Other upper respiratory disease (20 sources) Other specified disorders of nose and nasal sinuses; Translations: [Other disease of nasal cavity and sinuses] Onset: 12-22-2022 12-22-2022 Episodic Other upper respiratory infections (20 sources) Acute pharyngitis, unspecified; Translations: [Acute maxillary sinusitis] Onset: 07-30-2022 07-24-2023 Episodic Spondylosis; intervertebral disc disorders; other back problems (20 sources) Sciatica; Translations: [Sciatica, right side] Onset: 12-22-2022 12-22-2022 Episodic Unclassified (1 source) COUGH, UNSPECIFIED; Translations: [COUGH, UNSPECIFIED] Onset: 07-18-2022 Unclassified (1 source) CONTACT W/AND (SUSP) EXPOS COVID-19; Translations: [CONTACT W/AND (SUSP) EXPOS COVID-19] Onset: 12-25-2021 Unclassified (1 source) Never smoked tobacco; Translations: [Never a smoker] Viral infection (20 sources) Plantar wart of left foot; Translations: [Plantar wart] Onset: 12-22-2022 12-22-2022 Episodic Results Test Name Value Interpretation Reference Range Facility CBC (INCLUDES DIFF/PLT)on Basophils (Bld) [#/Vol] 0.048 10*3/uL Normal 0-200 [facility] Comment on above: Performed By: #### 3 61, 33644, 7600, 6399 #### [facility] [place] [address] Sailing Master: Sagar Pathak MD Basophils/100 WBC (Bld) 0.7 % Normal [facility] Comment on above: Performed By: #### 3 61, 06636, 7600, 6399 #### [facility] [place] [address] Sailing Master: Sagar Pathak MD Eosinophils (Bld) [#/Vol] 0.476 10*3/uL Normal 15-500 [facility] Comment on above: Performed By: #### 3 61, 84545, 7600, 6399 #### [facility] [place] [address] Sailing Master: Sagar Pathak MD Eosinophils/100 WBC (Bld) 6.9 % Normal [facility] Comment on above: Performed By: #### 3 61, 48180, 7600, 6399 #### [facility] [place] [address] Sailing Master: Sagar Pathak MD Erythrocyte distribution width (RBC) [Ratio] 14.4 % Normal 11.0-15.0 [facility] Comment on above: Performed By: #### 3 61, , 7600, 6399 #### [facility] of [address], [address] [place] [address] Sailing Master: Sagar Pathak MD Hematocrit (Bld) [Volume fraction] 46.6 % Normal 38.5-50.0 [facility] Comment on above: Performed By: #### 3 61, , 7600, 6399 #### [facility] of [place] [address] Sailing Master: Sagar Pathak MD Hemoglobin (Bld) [Mass/Vol] 15.0 g/dL Normal 13.2-17.1 [facility] Comment on above: Performed By: #### 3 6126, , 0, 6399 #### [facility] of [address], [address] [place] [address] Sailing Master: Sagar Pathak MD Lymphocytes (Bld) [#/Vol] 2.215 10*3/uL Normal 850-3900 [facility] Comment on above: Performed By: #### 3 6126, 90344, 7600, 6399 #### [facility] of [place] [address] Sailing Master: Sagar Pathak MD Lymphocytes/100 WBC (Bld) 32.1 % Normal [facility] Comment on above: Performed By: #### 3 6126, 29590, 7600, 6399 #### [facility] of [address], [address] [place] [address] Sailing Master: Sagar Pathak MD MCH (RBC) [Entitic mass] 27.6 pg Normal 27.0-33.0 [facility] Comment on above: Performed By: #### 3 6126, 66679, 7600, 6399 #### [facility] of [address], [address] [place] [address] Sailing Master: Sagar Pathak MD MCHC (RBC) [Mass/Vol] 32.2 g/dL Normal 32.0-36.0 [facility] Comment on above: Result Comment: For adults, a slight decrease in the calculated MCHC value (in the range of 30 to 32 g/dL) is most likely not clinically significant; however, it should be interpreted with caution in correlation with other red cell parameters and the patient's clinical condition. Performed By: #### 3 6126, , 7600, 6399 #### [facility] [place] [address] Sailing Master: Sagar Pathak MD MCV (RBC) [Entitic vol] 85.8 fL Normal 80.0-100.0 [facility] Comment on above: Performed By: #### 3 6126, , 0, 6399 #### [facility] [place] [address] Sailing Master: Sagar Pathak MD Monocytes (Bld) [#/Vol] 0.518 10*3/uL Normal 200-950 [facility] Comment on above: Performed By: #### 3 6126, , 0, 6399 #### [facility] of [place] [address] Sailing Master: Sagar Pathak MD Monocytes/100 WBC (Bld) 7.5 % Normal [facility] Comment on above: Performed By: #### 3 6126, , 0, 6399 #### [facility] [place] [address] Sailing Master: Sagar Pathak MD Neutrophils (Bld) [#/Vol] 3.643 10*3/uL Normal 4254-7654 [facility] Comment on above: Performed By: #### 3 6126, , 7600, 6399 #### [facility] of [place] [address] Sailing Master: Sagar Pathak MD Neutrophils/100 WBC (Bld) 52.8 % Normal [facility] Comment on above: Performed By: #### 3 61, 05051, 7600, 6399 #### [facility] of [place] [address] Sailing Master: Sagar Pathak MD Platelet mean volume (Bld) [Entitic vol] 9.8 fL Normal 7.5-12.5 [facility] Comment on above: Performed By: #### 3 6127, 53092, 7600, 6399 #### [facility] of [address], [address] [place] [address] Sailing Master: Sagar Pathak MD Platelets (Bld) [#/Vol] 209 10*3/uL Normal 140-400 [facility] Comment on above: Performed By: #### 3 61, 64019, 7600, 6399 #### [facility] of [address], [address] [place] [address] Sailing Master: Sagar Pathak MD RBC (Bld) [#/Vol] 5.43 10*6/uL Normal 4.20-5.80 [facility] Comment on above: Performed By: #### 3 61, 77480, 7600, 6399 #### [facility] of [place] [address] Sailing Master: Sagar Pathak MD WBC (Bld) [#/Vol] 6.9 10*3/uL Normal 3.8-10.8 [facility] Comment on above: Performed By: #### 3 6127, 42374, 7600, 6399 #### [facility] of [place] [address] Sailing Master: Sagar Pathak MD COMPREHENSIVE METABOLIC PANE [facility] 07-01-2024 Albumin [Mass/Vol] 4.1 g/dL Normal 3.6-5.1 [facility] Comment on above: Performed By: #### 3 61, 11575, 7600, 6399 #### [facility] of [place] [address] Sailing Master: Sagar Pathak MD Albumin/Globulin [Mass ratio] 1.4 {ratio} Normal 1.0-2.5 [facility] Comment on above: Performed By: #### 3 61, 02458, 7600, 6399 #### [facility] of [address], [address] [place] [address] Sailing Master: Sagar Pathak MD ALP [Catalytic activity/Vol] 68 U/L Normal 35-144 [facility] Comment on above: Performed By: #### 3 6127, 42248, 7600, 6399 #### [facility] of [address], [address] [place], [place] [address] Sailing Master: Sagar Pathak MD ALT [Catalytic activity/Vol] 17 U/L Normal 9-46 [facility] Comment on above: Performed By: #### 3 61, 23810, 7600, 6399 #### [facility] of [address], [address] [place] [address] Sailing Master: Sagar Pathak MD AST [Catalytic activity/Vol] 18 U/L Normal 10-35 [facility] Comment on above: Performed By: #### 3 61, 48957, 7600, 6399 #### [facility] of [address], [address] [place] [address] Sailing Master: Sagar Pathak MD Bilirubin [Mass/Vol] 1.0 mg/dL Normal 0.2-1.2 [facility] Comment on above: Performed By: #### 3 61, 60969, 7600, 6399 #### [facility] of [address], [address] [place] [address] Sailing Master: Sagar Pathak MD BUN/CREATININE RATIO SEE NOTE: Normal 6-22 [facility] Comment on above: Result Comment: Not Reported: BUN and Creatinine are within reference range. Performed By: #### 3 61, 64515, 7600, 6399 #### [facility] of [address], [address] [place] [address] Sailing Master: Sagar Pathak MD Calcium [Mass/Vol] 9.1 mg/dL Normal 8.6-10.3 [facility] Comment on above: Performed By: #### 3 61, 67268, 7600, 6399 #### [facility] of [place] [address] Sailing Master: Sagar Pathak MD Chloride [Moles/Vol] 105 mmol/L Normal 98-110 [facility] Comment on above: Performed By: #### 3 61, 63749, 7600, 6399 #### [facility] of [place] [address] Sailing Master: Sagar Pathak MD CO2 [Moles/Vol] 25 mmol/L Normal 20-32 [facility] Comment on above: Performed By: #### 3 61, 79617, 7600, 6399 #### [facility] of [place] [address] Sailing Master: Sagar Pathak MD Creatinine [Mass/Vol] 0.84 mg/dL Normal 0.70-1.28 [facility] Comment on above: Performed By: #### 3 61, 27162, 7600, 6399 #### [facility] of [place] [address] Sailing Master: Sagar Pathak MD GFR/1.73 sq M.predicted among non-blacks MDRD (S/P/Bld) [Vol rate/Area] 91 mL/min/{1.73_m2} Normal > OR = 60 [facility] Comment on above: Performed By: #### 3 61, 25813, 7600, 6399 #### [facility] of [place] [address] Sailing Master: Sagar Pathak MD Globulin (S) [Mass/Vol] 2.9 g/dL Normal 1.9-3.7 [facility] Comment on above: Performed By: #### 3 61, 37129, 7600, 6399 #### [facility] of [place] [address] Sailing Master: Sagar Pathak MD Glucose [Mass/Vol] 119 mg/dL High 65-99 [facility] Comment on above: Result Comment: Fasting reference interval For someone without known diabetes, a glucose value between 100 and 125 mg/dL is consistent with prediabetes and should be confirmed with a follow-up test. Performed By: #### 3 6127, 28115, 7600, 6399 #### [facility] [place] [address] Sailing Master: Sagar Pathak MD Potassium [Moles/Vol] 4.4 mmol/L Normal 3.5-5.3 [facility] Comment on above: Performed By: #### 3 6127, 47491, 7600, 6399 #### [facility] [place] [address] Sailing Master: Sagar Pathak MD Protein [Mass/Vol] 7.0 g/dL Normal 6.1-8.1 [facility] Comment on above: Performed By: #### 3 6127, 77639, 7600, 6399 #### [facility] [place] [address] Sailing Master: Sagar Pathak MD Sodium [Moles/Vol] 139 mmol/L Normal 135-146 [facility] Comment on above: Performed By: #### 3 6127, 92488, 7600, 6399 #### [facility] [place] [address] Sailing Master: Sagar Pathak MD Urea nitrogen [Mass/Vol] 16 mg/dL Normal 7-25 [facility] Comment on above: Performed By: #### 3 6127, 33356, 7600, 6399 #### [facility] [place] [address] Sailing Master: Sagar Pathka MD LIPID PANEL, [facility] - Cholesterol [Mass/Vol] 143 mg/dL Normal <200 [facility] Comment on above: Order Comment: FASTI NG:YES FASTING: YES Performed By: #### 3 6127, 79107, 7600, 6399 #### [facility] [address], [address] [place] [address] Sailing Master: Sagar Pathak MD Cholesterol in HDL [Mass/Vol] 55 mg/dL Normal > OR = 40 [facility] Comment on above: Order Comment: FASTI NG:YES FASTING: YES Performed By: #### 3 6127, 70463, 7600, 6399 #### [facility] [address], [address] [place] [address] Sailing Master: Sagar Pathak MD Cholesterol in LDL [Mass/Vol] 70 mg/dL Normal [facility] Comment on above: Order Comment: FASTI NG:YES FASTING: YES Result Comment: Refe rence range: <100 Desirable range <100 mg/dL for primary prevention; <70 mg/dL for patients with CHD or diabetic patients with > or = 2 CHD risk factors. LDL-C is now calculated using the Mayela calculation, which is a validated novel method providing better accuracy than the Friedewald equation in the estimation of LDL-C. Jorge GREEN et al. ISAÍAS. 2013;310(19): 4562-7837 (http://education.NTRglobal.myZamana/faq/DIG431) Performed By: #### 3 6127, 84982, 7600, 6399 #### [facility] [address], [address] [place] [address] Sailing Master: Sagar Pathak MD Cholesterol.total/C holesterol in HDL [Mass ratio] 2.6 {ratio} Normal <5.0 [facility] Comment on above: Order Comment: FASTI NG:YES FASTING: YES Performed By: #### 3 6127, 66899, 7600, 6399 #### [facility] [place] [address] Sailing Master: Sagar Pathak MD NON HDL CHOLESTEROL 88 mg/dL (calc) Normal <130 [facility] Comment on above: Order Comment: FASTI NG:YES FASTING: YES Result Comment: For patients with diabetes plus 1 major ASCVD risk factor, treating to a non-HDL-C goal of <100 mg/dL (LDL-C of <70 mg/dL) is considered a therapeutic option. Performed By: #### 3 6127, 34235, 7600, 6399 #### [facility] [address], [address] [place] [address] Sailing Master: Sagar Pathak MD Triglyceride [Mass/Vol] 93 mg/dL Normal <150 [facility] Comment on above: Order Comment: FASTI NG:YES FASTING: YES Performed By: #### 3 6127, 97701, 7600, 6399 #### [facility] [address], [address] [place] [address] Sailing Master: Sagar Pathak MD PSA, TOTALon 07-01-2024 PSA, TOTAL 1.24 ng/mL Normal < OR = 4.00 [facility] Comment on above: Result Comment: The total PSA value from this assay system is standardized against the WHO standard. The test result will be approximately 20% lower when compared to the equimolar-standardized total PSA (Miriam [place]). Comparison of serial PSA results should be interpreted with this fact in mind. This test was performed using the Siemens chemiluminescent method. Values obtained from different assay methods cannot be used interchangeably. PSA levels, regardless of value, should not be interpreted as absolute evidence of the presence or absence of disease. Performed By: #### 3 6127, 93005, 7600, 6399 #### [facility] [place] [address] Sailing Master: Sagar Pathak MD TSH W/REFLEX TO FT4on 2024 TSH W/REFLEX TO FT4 1.24 mIU/L Normal 0.40-4.50 [facility] Comment on above: Performed By: #### 3 6127, 09864, 7600, 6399 #### [facility] [place] [address] Sailing Master: Sagar Pathak MD No Panel Informationon 06-29 BRAEDEN Negron 06/29/2024 3:46 PM Ear Cerumen Removal Date/Time: 06/29/2024 3:39 PM Performed by: BRAEDEN Negron Authorized by: BRAEDEN Negron Consent: Consent obtained: Verbal Consent given by: Patient Risks, benefits, and alternatives were discussed: yes Risks discussed: Bleeding, infection, pain, TM perforation, incomplete removal and dizziness Alternatives discussed: No treatment, alternative treatment and referral Procedure details: Location: L ear and R ear Procedure type: curette Procedure type comment: With warm water/hydrogen peroxide irrigation Procedure outcomes: cerumen removed Post-procedure details: Inspection: Ear canal clear Hearing quality: Improved Procedure completion: Tolerated well, no immediate complications [facility] - Hematology and Cell countson 05-16-2024 HbA1c (Bld) [Mass fraction] 6.3 % [facility] No Panel Informationon 05-16 [facility] Urinalysis macro (dipstick) panel (U)on 03-07-2024 Bilirubin, UA Few Negative - 4(70) +++ mg/dL [facility] Blood, UA Positive Negative - 50 Gabriel/mcL [facility] Clarity, UA Cloudy [facility] Color, UA Straw [facility] Glucose, UA Negative Negative - 2000(110) ++++ mg/dL [facility] Interpretation and review of laboratory results Abnormal [facility] Ketones, UA Negative Negative - 160(16) ++++ mg/dL [facility] Leukocytes, UA Moderate Negative - 500+++ Luzma/mcL [facility] Nitrite, UA Negative Negative - Positive [facility] pH, UA 6.0 5 - 9 [facility] Protein, UA Trace Negative - 2000(20) ++++ mg/dL [facility] Spec Grav, UA 1.020 1 - 1.03 [facility] Urobilinogen, UA 1.0 0.2 - 12 mg/dL [facility] Ambulatory Visit Summaryon 0 01-13-2023 Ambulatory Visit Summary FRANKIE DE ANDA :1950 Visit Date:01/13/2023 Ambulatory Visit Instructions Your Care Team Attending Physician - JIMY BOWEN, Dakota Hoang Primary Care Physician - JENNIFER BOWEN, WESTON Matta This Is Your Medications List aspirin (aspirin 81 mg oral tablet) carvedilol (Coreg 12.5 mg Tab) fluticasone nasal (Flonase 0.05 mg/inh [place]) hydrochlorothiazide-[place] (hydrochlorothiazide-lo sartan 12.5 mg-50 mg Tab) metformin (metformin 500 mg Tab) rosuvastatin (Crestor 5 mg Tab) tolterodine (Detrol 2 mg Tab) Procedures Performed Repair of left inguinal hernia (12/10/2022), Rezum (04/19/2019), Circumcision, Tonsillectomy. Medications What How Much When Instructions Unchanged aspirin (aspirin 81 mg oral tablet) 1 Tablets By Mouth Every day Unchanged carvedilol (Coreg 12.5 mg Tab) 1 Tablets By Mouth 2 times a day Unchanged fluticasone nasal (Flonase 0.05 mg/ inh [place]) 2 Sprays Nasal Inhalation Every day Unchanged hydrochlorothiazide-[place] (hydrochlorothiazide-lo sartan 12.5 mg-50 mg Tab) 1 Tablets By Mouth Every day Unchanged metformin (metformin 500 mg Tab) 1 Tablets By Mouth 2 times a day Unchanged rosuvastatin (Crestor 5 mg Tab) 1 Tablets By Mouth Once a day (at bedtime) Unchanged tolterodine (Detrol 2 mg Tab) 1 Tablets By Mouth 2 times a day as needed for bladder spasm Allergies penicillins (Weakness - general) Problems Ongoing - Any problem that you are currently receiving treatment for. BMI 33.0-33.9,adult BPH with urinary obstruction CAD (coronary artery disease) Cardiac murmur Diabetes Elevated cholesterol Elevated PSA GERD (gastroesophageal reflux disease) Gross hematuria Hesitancy Hypertension Incomplete bladder emptying Inferior myocardial infarction Irreducible left inguinal hernia Neuropathy Nocturia Obesity Urethral stricture Urinary urgency Weak urine stream Historical - Any problem that you are no longer receiving treatment for. Occlusion and stenosis of multiple and bilateral cerebral arteries Normal [facility] General Surgery Office/Clini c Noteon 01-13-2023 General Surgery Office/Clinic Note Chief Complaint post operative follow up HPI Staff 5 week post operative follow up post left inguinal hernia repair. Denies discomfort, no use of pain medication. Denies bleeding or drainage. Bowels moving well. History of Present Illness 5 weeks s/p LIHR with mesh; doing well, denies pain, no drainage, no pain medications; normal bms. Review of Systems ROS - Provider Constitutional: no fever, no sweats, no weight loss. Eyes: no glasses, no blurred vision, no visual loss. ENMT: no dentures, no hoarseness, no swallowing difficulties, no hearing loss, no ear infection(s), no nose bleeds. Cardiovascular: normal blood pressure, no chest pain, regular heartbeat, no heart murmur. Respiratory: no shortness of breath, no cough, no asthma, no wheezing. Gastrointestinal: no nausea, no vomiting, no diarrhea, no constipation, no blood in stool, no change in bowel habits, no abdominal pain, no hepatitis. Genitourinary: no kidney stones, no urine infection, no dysuria. Musculoskeletal: no pain, no weakness. Skin: no changing moles, no rash, no skin lumps. Neurologic: no seizures, no epilepsy, no headache. Psychiatric: no emotional or psychiatric problem. Heme/Lymph: no bleeding problems, no anemia, no blood clots, no transfusions. Allergy/Immunologic: no swollen lymph nodes/glands, no IV drug abuse. Other: Additional ROS info: Except as noted in the above Review of Systems and in the History of Present Illness, all other systems have been reviewed and are negative or noncontributory. Physical Exam abd: soft, normal bs, incision healing well, no induration, no erythema or drainage, no recurrent hernia or seroma. Assessment/Plan 1. Irreducible left inguinal hernia (K40.30: Unilateral inguinal hernia, with obstruction, without gangrene, not specified as recurrent) doing well, gradually resume regular activities.; call with problems/questions. Follow-up With When Contact Information JIMY BOWEN, MIGUEL A Hawk Only if needed [address] [place] [address]- Additional Instructions: Problem List/Past Medical History Ongoing BMI 33.0-33.9,adult BPH with urinary obstruction CAD (coronary artery disease) Cardiac murmur Diabetes Elevated cholesterol Elevated PSA GERD (gastroesophageal reflux disease) Gross hematuria Hesitancy Hypertension Incomplete bladder emptying Inferior myocardial infarction Irreducible left inguinal hernia Neuropathy Nocturia Obesity Urethral stricture Urinary urgency Weak urine stream Historical Occlusion and stenosis of multiple and bilateral cerebral arteries Procedure/Surgical History Repair of left inguinal hernia (12/10/2022), Rezum (04/19/2019), Circumcision, Tonsillectomy. Medications aspirin 81 mg oral tablet, 81 mg= 1 tab(s), Oral, Daily Coreg 12.5 mg Tab, 12.5 mg= 1 tab(s), Oral, BID Crestor 5 mg Tab, 5 mg= 1 tab(s), Oral, Once a day (at bedtime) Detrol 2 mg Tab, 2 mg= 1 tab(s), Oral, BID, PRN Flonase 0.05 mg/inh [place], 2 spray(s), Nasal, Daily hydrochlorothiazide-[place] 12.5 mg-50 mg Tab, 1 tab(s), Oral, Daily metformin 500 mg Tab, 500 mg= 1 tab(s), Oral, BID Allergies penicillins (Weakness - general) Social History Alcohol - Denies Alcohol Use, 11/18/2022 Substance Abuse - Denies Substance Abuse, 10/01/2022 Tobacco Never (less than 100 in lifetime) Tobacco Use:. Never Smokeless Tobacco Use:., 10/01/2022 Family History Congenital heart disease: Mother and Father. Hypertension: Mother and Father. Immunizations Vaccine Date Status SARS-CoV-2 (COVID-19) mRNA BNT-162b2 vax 03/12/2021 Recorded SARS-CoV-2 (COVID-19) mRNA BNT-162b2 vax 08/21/2020 Recorded SARS-CoV-2 (COVID-19) mRNA BNT-162b2 vax 07/30/2020 Recorded Normal [facility] Comment on above: Result Comment: Elec tronically Signed By: JIMY BOWEN, Dakota Hoang\.br\Date and Time Signed: 01/13/23 16:50 EDT Ambulatory Visit Summaryon 0 12-26-2022 Ambulatory Visit Summary FRANKIE DE ANDA :1950 Visit Date:12/26/2022 Ambulatory Visit Instructions Your Care Team Attending Physician - JIMY BOWEN, Dakota Hoang Primary Care Physician - JENNIFER BOWEN, WESTON Matta This Is Your Medications List aspirin (aspirin 81 mg oral tablet) carvedilol (Coreg 12.5 mg Tab) fluticasone nasal (Flonase 0.05 mg/inh [place]) hydrochlorothiazide-[place] (hydrochlorothiazide-lo sartan 12.5 mg-50 mg Tab) metformin (metformin 500 mg Tab) rosuvastatin (Crestor 5 mg Tab) tolterodine (Detrol 2 mg Tab) Procedures Performed Repair of left inguinal hernia (12/10/2022), Rezum (04/19/2019), Circumcision, Tonsillectomy. What to do next Scheduled Follow-Up Appointments Thursday 4:00 PM EDT With: Dakota AHN MD Where: General Surgery [facility]Yoly [facility] General Surgery Office/Clini c Noteon 12-26-2022 General Surgery Office/Clinic Note Chief Complaint post operative follow up HPI Staff 16 day post operative follow up post left inguinal hernia repair. Denies pain, no use of pain medication. Denies bleeding or drainage. Bowels moving well. History of Present Illness 16 days s/p LIHR with mesh; doing well, mild soreness with activity; no pain meds; no strenuous activities; walking, more active now. concerned about some intermittent pain in right groin with lifting; no bulge or skin changes. Review of Systems ROS - Provider Constitutional: no fever, no sweats, no weight loss. Eyes: no glasses, no blurred vision, no visual loss. ENMT: no dentures, no hoarseness, no swallowing difficulties, no hearing loss, no ear infection(s), no nose bleeds. Cardiovascular: normal blood pressure, no chest pain, regular heartbeat, no heart murmur. Respiratory: no shortness of breath, no cough, no asthma, no wheezing. Gastrointestinal: no nausea, no vomiting, no diarrhea, no constipation, no blood in stool, no change in bowel habits, no abdominal pain, no hepatitis. Genitourinary: no kidney stones, no urine infection, no dysuria. Musculoskeletal: no pain, no weakness. Skin: no changing moles, no rash, no skin lumps. Neurologic: no seizures, no epilepsy, no headache. Psychiatric: no emotional or psychiatric problem. Heme/Lymph: no bleeding problems, no anemia, no blood clots, no transfusions. Allergy/Immunologic: no swollen lymph nodes/glands, no IV drug abuse. Other: Additional ROS info: Except as noted in the above Review of Systems and in the History of Present Illness, all other systems have been reviewed and are negative or noncontributory. Physical Exam abd: soft, nontender, nondistended, incision healing well, minimal induration, no drainage, nontender; cord swelling improved; mild tenderness in right inguinal area, no hernia noted or enlargement of right external inguinal ring; no skin changes. Assessment/Plan 1. Irreducible left inguinal hernia (K40.30: Unilateral inguinal hernia, with obstruction, without gangrene, not specified as recurrent) doing well, continue no lifting > 10 lbs for 2 weeks, f/u in 2 weeks, call sooner if problems/questions. Follow-up No qualifying data available Problem List/Past Medical History Ongoing BMI 33.0-33.9,adult BPH with urinary obstruction CAD (coronary artery disease) Cardiac murmur Diabetes Elevated cholesterol Elevated PSA GERD (gastroesophageal reflux disease) Gross hematuria Hesitancy Hypertension Incomplete bladder emptying Inferior myocardial infarction Irreducible left inguinal hernia Neuropathy Nocturia Obesity Urethral stricture Urinary urgency Weak urine stream Historical Occlusion and stenosis of multiple and bilateral cerebral arteries Procedure/Surgical History Repair of left inguinal hernia (12/10/2022), Rezum (04/19/2019), Circumcision, Tonsillectomy. Medications aspirin 81 mg oral tablet, 81 mg= 1 tab(s), Oral, Daily Coreg 12.5 mg Tab, 12.5 mg= 1 tab(s), Oral, BID Crestor 5 mg Tab, 5 mg= 1 tab(s), Oral, Once a day (at bedtime) Detrol 2 mg Tab, 2 mg= 1 tab(s), Oral, BID, PRN Flonase 0.05 mg/inh [place], 2 spray(s), Nasal, Daily hydrochlorothiazide-[place] 12.5 mg-50 mg Tab, 1 tab(s), Oral, Daily metformin 500 mg Tab, 500 mg= 1 tab(s), Oral, BID Allergies penicillins (Weakness - general) Social History Alcohol - Denies Alcohol Use, 11/18/2022 Substance Abuse - Denies Substance Abuse, 10/01/2022 Tobacco Never (less than 100 in lifetime) Tobacco Use:. Never Smokeless Tobacco Use:., 10/01/2022 Family History Congenital heart disease: Mother and Father. Hypertension: Mother and Father. Immunizations Vaccine Date Status SARS-CoV-2 (COVID-19) mRNA BNT-162b2 vax 03/12/2021 Recorded SARS-CoV-2 (COVID-19) mRNA BNT-162b2 vax 08/21/2020 Recorded SARS-CoV-2 (COVID-19) mRNA BNT-162b2 vax 07/30/2020 Recorded Normal [facility] Comment on above: Result Comment: Elec tronically Signed By: JIMY BOWEN, Dakota Hoang\.br\Date and Time Signed: 12/26/22 16:45 EDT Ambulatory Visit Summaryon 0 12-17-2022 Ambulatory Visit Summary FRANKIE DE ANDA :1950 Visit Date:12/17/2022 Ambulatory Visit Instructions Your Care Team Attending Physician - Dakota AHN MD Primary Care Physician - JENNIFER BOWEN, WESTON Matta This Is Your Medications List aspirin (aspirin 81 mg oral tablet) carvedilol (Coreg 12.5 mg Tab) fluticasone nasal (Flonase 0.05 mg/inh [place]) hydrochlorothiazide-[place] (hydrochlorothiazide-lo sartan 12.5 mg-50 mg Tab) metformin (metformin 500 mg Tab) rosuvastatin (Crestor 5 mg Tab) tolterodine (Detrol 2 mg Tab) Procedures Performed Repair of left inguinal hernia (12/10/2022), Rezum (04/19/2019), Circumcision, Tonsillectomy. What to do next Scheduled Follow-Up Appointments Thursday 2:00 PM EDT With: Dakota AHN MD Where: General Surgery Jimy/Yoly Rodas Normal [facility] General Surgery Office/Clini c Noteon 12-17-2022 General Surgery Office/Clinic Note Chief Complaint post operative follow up HPI Staff 7 day post operative follow up post left inguinal hernia repair. Minimal discomfort; taking Ibuprofen as directed. Denies bleeding or drainage. Bowels moving well. Swelling he called about earlier in the week has greatly improved. History of Present Illness 1 week s/p LIHR with mesh for indirect hernia and cord lipoma; doing well, some swelling initially, improving; mild soreness, controlled with ibuprofen; bowel moving normally, voiding well. Physical Exam abd: obese, soft, normal bs, nontender, nondistended, incision without erythema or drainage, minimal resolving ecchymoses; moderated swelling of left hemiscrotum, no hematoma. Assessment/Plan 1. Irreducible left inguinal hernia (K40.30: Unilateral inguinal hernia, with obstruction, without gangrene, not specified as recurrent) doing well, continue to wear compression shorts; no lifting > 10 lbs for 3 weeks; follow up in 2 weeks, call sooner if problems/questions. Follow-up No qualifying data available Problem List/Past Medical History Ongoing BMI 33.0-33.9,adult BPH with urinary obstruction CAD (coronary artery disease) Cardiac murmur Diabetes Elevated cholesterol Elevated PSA GERD (gastroesophageal reflux disease) Gross hematuria Hesitancy Hypertension Incomplete bladder emptying Inferior myocardial infarction Irreducible left inguinal hernia Neuropathy Nocturia Obesity Urethral stricture Urinary urgency Weak urine stream Historical Occlusion and stenosis of multiple and bilateral cerebral arteries Procedure/Surgical History Repair of left inguinal hernia (12/10/2022), Rezum (04/19/2019), Circumcision, Tonsillectomy. Medications aspirin 81 mg oral tablet, 81 mg= 1 tab(s), Oral, Daily Coreg 12.5 mg Tab, 12.5 mg= 1 tab(s), Oral, BID Crestor 5 mg Tab, 5 mg= 1 tab(s), Oral, Once a day (at bedtime) Detrol 2 mg Tab, 2 mg= 1 tab(s), Oral, BID, PRN Flonase 0.05 mg/inh [place], 2 spray(s), Nasal, Daily hydrochlorothiazide-[place] 12.5 mg-50 mg Tab, 1 tab(s), Oral, Daily metformin 500 mg Tab, 500 mg= 1 tab(s), Oral, BID Allergies penicillins (Weakness - general) Social History Alcohol - Denies Alcohol Use, 11/18/2022 Substance Abuse - Denies Substance Abuse, 10/01/2022 Tobacco Never (less than 100 in lifetime) Tobacco Use:. Never Smokeless Tobacco Use:., 10/01/2022 Family History Congenital heart disease: Mother and Father. Hypertension: Mother and Father. Immunizations Vaccine Date Status SARS-CoV-2 (COVID-19) mRNA BNT-162b2 vax 03/12/2021 Recorded SARS-CoV-2 (COVID-19) mRNA BNT-162b2 vax 08/21/2020 Recorded SARS-CoV-2 (COVID-19) mRNA BNT-162b2 vax 07/30/2020 Recorded Normal [facility] Comment on above: Result Comment: Elec tronically Signed By: JIMY BOWEN, Dakota Aiken\Date and Time Signed: 12/17/22 15:10 EDT Operative Reporton 3 Operative Report [id number] D:127 Normal [facility] Consultation Noteon 12-12-19 Consultation Note [id number] D:127 Normal [facility] Lab Reportson 12-11-2022 Lab Reports [id number] D:127 Normal [facility] Lab Reports [id number] D:127 Normal [facility] Operative Reporton 3 Operative Report [id number] D:127 Normal [facility] Lab Reportson 12-10-2022 Lab Reports [id number] D:127 Normal [facility] [facility] 12-03-2022 Lab Reports [id number] D:127 Normal [facility] Lab Reports [id number] D:127 Normal [facility] RAD - MISCon 12-03-2022 RAD - MISC [id number] D:127 [facility] Consent for Procedure/Surger yon 11-19-2022 Consent for Procedure/Surgery [id number] D:127 Normal [facility] Ambulatory Visit Summaryon 0 11-18-2022 Ambulatory Visit Summary FRANKIE DE ANDA Son :1950 Visit Date:11/18/2022 Ambulatory Visit Instructions Your Care Team Attending Physician - JIMY BOWEN, Dakota Hoang Primary Care Physician - JENNIFER BOWEN, WESTON Matta This Is Your Medications List aspirin (aspirin 81 mg oral tablet) carvedilol (Coreg 12.5 mg Tab) fluticasone nasal (Flonase 0.05 mg/inh [place]) hydrochlorothiazide-[place] (hydrochlorothiazide-lo sartan 12.5 mg-50 mg Tab) metformin (metformin 500 mg Tab) rosuvastatin (Crestor 5 mg Tab) tolterodine (Detrol 2 mg Tab) Procedures Performed Rezum (04/19/2019), Circumcision, Tonsillectomy. Discharge Vitals Heart Rate (Peripheral) 76 Respiratory Rate 16 Blood Pressure 128/90 Height 165.1 cm Height 65 in Weight 90.2 kg Weight 198.44 lb BMI 33.09 Medications What How Much When Instructions Unchanged aspirin (aspirin 81 mg oral tablet) 1 Tablets By Mouth Every day Unchanged carvedilol (Coreg 12.5 mg Tab) 1 Tablets By Mouth 2 times a day Unchanged fluticasone nasal (Flonase 0.05 mg/ inh [place]) 2 Sprays Nasal Inhalation Every day Unchanged hydrochlorothiazide-[place] (hydrochlorothiazide-lo sartan 12.5 mg-50 mg Tab) 1 Tablets By Mouth Every day Unchanged metformin (metformin 500 mg Tab) 1 Tablets By Mouth 2 times a day Unchanged rosuvastatin (Crestor 5 mg Tab) 1 Tablets By Mouth Once a day (at bedtime) Unchanged tolterodine (Detrol 2 mg Tab) 1 Tablets By Mouth 2 times a day as needed for bladder spasm Allergies penicillins (Weakness - general) Problems Ongoing - Any problem that you are currently receiving treatment for. BMI 33.0-33.9,adult BPH with urinary obstruction CAD (coronary artery disease) Cardiac murmur Diabetes Elevated cholesterol Elevated PSA GERD (gastroesophageal reflux disease) Gross hematuria Hesitancy Hypertension Incomplete bladder emptying Inferior myocardial infarction Irreducible left inguinal hernia Neuropathy Nocturia Obesity Urethral stricture Urinary urgency Weak urine stream Historical - Any problem that you are no longer receiving treatment for. Occlusion and stenosis of multiple and bilateral cerebral arteries Normal [facility] General Surgery Office/Clini c Noteon 11-18-2022 General Surgery Office/Clinic Note Chief Complaint re-evaluate left inguinal hernia HPI Staff Presents to re-evaluate left inguinal hernia. Last evaluation completed 10/01/22, no changes noted. History of Present Illness 72 yo male with h/o CAD, htn, DMII, hypercholesterolemia, GERD, neuropathy, bph, here for reevaluation of left inguinal hernia; initially seen in 2018 and hernia was reducible and abd/pelvic ct revealed sigmoid colon in hernia; evaluated 6 weeks ago and had enlarged, irreducible hernia, extending into scrotum; patient denies change in bms ; no N/V; hernia has enlarged more; firm at times; on asa, no NSAIDs; no tobacco use. Review of Systems PHQ Score Initial Depression Screen Score: 0 ROS - Provider Constitutional: no fever, no sweats, no weight loss. Eyes: no glasses, no blurred vision, no visual loss. ENMT: no dentures, no hoarseness, no swallowing difficulties, no hearing loss, no ear infection(s), no nose bleeds. Cardiovascular: normal blood pressure, no chest pain, regular heartbeat, no heart murmur. Respiratory: no shortness of breath, no cough, no asthma, no wheezing. Gastrointestinal: no nausea, no vomiting, no diarrhea, no constipation, no blood in stool, no change in bowel habits, no abdominal pain, no hepatitis. Genitourinary: no kidney stones, no urine infection, no dysuria. Musculoskeletal: no pain, no weakness. Skin: no changing moles, no rash, no skin lumps. Neurologic: no seizures, no epilepsy, no headache. Psychiatric: no emotional or psychiatric problem. Heme/Lymph: no bleeding problems, no anemia, no blood clots, no transfusions. Allergy/Immunologic: no swollen lymph nodes/glands, no IV drug abuse. Other: Additional ROS info: Except as noted in the above Review of Systems and in the History of Present Illness, all other systems have been reviewed and are negative or noncontributory. Physical Exam Vitals & Measurements HR: 76(Peripheral) RR: 16 BP: 128/90 HT: 65 in HT: 165.1 cm WT: 90.2 kg WT: 198.44 lb BMI: 33.09 HEENT: normal conjunctiva, sclera clear, no scleral icterus, EOM intact, PERRLA, oral mucosa moist without lesions. Neck: trachea midline, no mass, symmetric, no thyromegaly or nodules, no adenopathy Respiratory: lungs CTA, respirations non labored. Cardiovascular: regular rate and rhythm, no murmur, no pedal edema or varicosities. Gastrointestinal: soft, non distended, no tenderness, no masses, large left inguinal hernia extending into scrotum, nonreducible, nontender, diastasis recti no, no hepatosplenomegaly; normal bs Lymphatic: no cervical adenopathy, no inguinal adenopathy. Musculoskeletal: normal gait, digits and nails without infection, nodes, cyanosis, clubbing. Skin: no rashes, no lesions, no ulcers, no subcutaneous nodules, induration. Psychiatric/Neuro: oriented to time, place, person, judgement normal, affect appropriate for age, insight intact, no focal deficits. Tests: review of old records completed, Discussed surgical options, risks, and possible complications with patient. Assessment/Plan 1. Irreducible left inguinal hernia (K40.30: Unilateral inguinal hernia, with obstruction, without gangrene, not specified as recurrent) plan Left inguinal herniorrhaphy with mesh insertion, informed consent obtained; Ancef 2 gms IV prior to OR; SCDs, TAP block per anesthesia; will place in 23 hour observation postoperatively due to large hernia, and patient lives alone. 2. BMI 33.0-33.9,adult (Z68.33: Body mass index [BMI] 33.0-33.9, adult) recommend diet and exercise Follow-up No qualifying data available Problem List/Past Medical History Ongoing BMI 33.0-33.9,adult BPH with urinary obstruction CAD (coronary artery disease) Cardiac murmur Diabetes Elevated cholesterol Elevated PSA GERD (gastroesophageal reflux disease) Gross hematuria Hesitancy Hypertension Incomplete bladder emptying Inferior myocardial infarction Irreducible left inguinal hernia Neuropathy Nocturia Obesity Urethral stricture Urinary urgency Weak urine stream Historical Occlusion and stenosis of multiple and bilateral cerebral arteries Procedure/Surgical History Rezum (04/19/2019), Circumcision, Tonsillectomy. Medications aspirin 81 mg oral tablet, 81 mg= 1 tab(s), Oral, Daily Coreg 12.5 mg Tab, 12.5 mg= 1 tab(s), Oral, BID Crestor 5 mg Tab, 5 mg= 1 tab(s), Oral, Once a day (at bedtime) Detrol 2 mg Tab, 2 mg= 1 tab(s), Oral, BID, PRN Flonase 0.05 mg/inh [place], 2 spray(s), Nasal, Daily hydrochlorothiazide-[place] 12.5 mg-50 mg Tab, 1 tab(s), Oral, Daily metformin 500 mg Tab, 500 mg= 1 tab(s), Oral, BID Allergies penicillins (Weakness - general) Social History Alcohol - Denies Alcohol Use, 11/18/2022 Substance Abuse - Denies Substance Abuse, 10/01/2022 Tobacco Never (less than 100 in lifetime) Tobacco Use:. Never Smokeless Tobacco Use:., 10/01/2022 Family History Congenital heart disease: Mother and Father. Hypertension: Mother and Father. Immuniza (more content not included)... Normal [facility] Comment on above: Result Comment: Elec tronically Signed By: JIMY BOWEN, Dakota Hoang\.br\Date and Time Signed: 11/18/22 21:01 EDT Facesheeton 10-02-2022 Facesheet [id number] D:127 Normal [facility] Ambulatory Visit Summaryon 0 10-01-2022 Ambulatory Visit Summary FRANKIE DE ANDA :1950 Visit Date:10/01/2022 Ambulatory Visit Instructions Your Diagnosis Irreducible left inguinal hernia Your Care Team Attending Physician - JIMY BOWEN, Dakota Hoang Primary Care Physician - WESTON BORJA MD This Is Your Medications List Contact prescribing physician if questions or concerns aspirin (aspirin 81 mg oral tablet) carvedilol (Coreg 12.5 mg Tab) fluticasone nasal (Flonase 0.05 mg/inh [place]) hydrochlorothiazide-[place] (hydrochlorothiazide-lo sartan 12.5 mg-50 mg Tab) metformin (metformin 500 mg Tab) rosuvastatin (Crestor 5 mg Tab) tolterodine (Detrol 2 mg Tab) Procedures Performed Rezum (04/19/2019), Circumcision, Tonsillectomy. Discharge Vitals Heart Rate (Peripheral) 70 Respiratory Rate 16 Blood Pressure 128/78 Height 165.1 cm Height 65 in Weight 90.8 kg Weight 199.76 lb BMI 33.31 Medications What How Much When Instructions Unchanged aspirin (aspirin 81 mg oral tablet) 1 Tablets By Mouth Every day Contact prescribing physician if questions or concerns Unchanged carvedilol (Coreg 12.5 mg Tab) 1 Tablets By Mouth 2 times a day Contact prescribing physician if questions or concerns Unchanged fluticasone nasal (Flonase 0.05 mg/ inh [place]) 2 Sprays Nasal Inhalation Every day Contact prescribing physician if questions or concerns Unchanged hydrochlorothiazide-[place] (hydrochlorothiazide-lo sartan 12.5 mg-50 mg Tab) 1 Tablets By Mouth Every day Contact prescribing physician if questions or concerns Unchanged metformin (metformin 500 mg Tab) 1 Tablets By Mouth 2 times a day Contact prescribing physician if questions or concerns Unchanged rosuvastatin (Crestor 5 mg Tab) 1 Tablets By Mouth Once a day (at bedtime) Contact prescribing physician if questions or concerns Unchanged tolterodine (Detrol 2 mg Tab) 1 Tablets By Mouth 2 times a day as needed for bladder spasm Contact prescribing physician if questions or concerns Allergies penicillins (Weakness - general) Problems Ongoing - Any problem that you are currently receiving treatment for. BMI 33.0-33.9,adult BPH with urinary obstruction CAD (coronary artery disease) Cardiac murmur Diabetes Elevated cholesterol Elevated PSA GERD (gastroesophageal reflux disease) Gross hematuria Hesitancy Hypertension Incomplete bladder emptying Inferior myocardial infarction Irreducible left inguinal hernia Neuropathy Nocturia Urethral stricture Urinary urgency Weak urine stream Historical - Any problem that you are no longer receiving treatment for. Occlusion and stenosis of multiple and bilateral cerebral arteries Normal [facility] LIPID PROFILEon 09-26-2022 CHOL-HDL RATIO NORM SEE BELOW Normal [facility] Comment on above: Result Comment: 3.3 - 4.4 LOW RISK 4.4 - 7.1 AVERAGE RISK 7.1 - 11.0 MODERATE RISK >11.0 HIGH RISK Performed By: #### A 1C #### [facility] [address] [place], [place] [address] Dr. Vicky Bustos Cholesterol [Mass/Vol] 136 mg/dL Normal <=200 [facility] Comment on above: Performed By: #### A 1C #### [facility] [address] [place], [place] [address] Dr. Vicky Bustos Cholesterol in HDL [Mass/Vol] 49 mg/dL Normal 40-60 [facility] Comment on above: Performed By: #### A 1C #### [facility] [address] [place] [address] [address] Vicky Bustos Cholesterol in LDL [Mass/Vol] 67.0 mg/dL Normal [facility] Comment on above: Performed By: #### A 1C #### [facility] [address] [place] [address] [address] Vicky Bustos Cholesterol.total/C holesterol in HDL [Mass ratio] 2.8 {ratio} Normal [facility] Comment on above: Performed By: #### A 1C #### [facility] [address] [place] [address] [address] Vicky Bustos HDL NORMAL > or = 60 mg/dl - LO W CARDIOVASCULAR RISK <40 mg/dl - HIGH CARDIOVASCULAR RISK Normal [facility] Comment on above: Performed By: #### A 1C #### [facility] [address] [address] [address] Vicky Bustos LDL CALC NORMAL SEE BELOW Normal [facility] Comment on above: Result Comment: <100 mg/dl OPTIMAL 100 - 129 mg/dl NEAR OR ABOVE OPTIMAL 130 - 159 mg/dl BORDERLINE HIGH 160 - 189 mg/dl HIGH >190 mg/dl VERY HIGH Performed By: #### A 1C #### [facility] [address] [place] [address] Dr. Vicky Bustos Triglyceride [Mass/Vol] 100 mg/dL Normal <=150 [facility] Comment on above: Performed By: #### A 1C #### [facility] [address] [place] [address] [address] Vicky Bustos VLDL CALC 20.0 mg/dL Normal [facility] Comment on above: Performed By: #### A 1C #### [facility] [address] [place] [address] [address] Vicky Bustos PROF CHEM 8 (BAS METB)on Anion gap [Moles/Vol] 12.9 mmol/L Normal [facility] Comment on above: Performed By: #### A 1C #### [facility] [address] [place] [address] Dr. Vicky Bustos Calcium [Mass/Vol] 9.3 mg/dL Normal 8.5-10.1 [facility] Comment on above: Performed By: #### A 1C #### [facility] [address] [place] [address] Dr. Vicky Bustos Chloride [Moles/Vol] 100 mmol/L Normal 98-107 [facility] Comment on above: Performed By: #### A 1C #### [facility] [address] [address] [address] Vicky Bustos CO2 [Moles/Vol] 30.7 mmol/L Normal 21.0-32.0 [facility] Comment on above: Performed By: #### A 1C #### [facility] [address] [place] [address] Dr. Vicky Bustos Creatinine [Mass/Vol] 0.93 mg/dL Normal 0.70-1.30 [facility] Comment on above: Performed By: #### A 1C #### [facility] [address] [place] [address] Dr. Vicky Bustos EGFR-AF MICRONESIAN >60 Normal >=60 [facility] Comment on above: Performed By: #### A 1C #### [facility] [address] [place] [address] Dr. Vicky Bustos EGFR-NON AF MICRONESIAN >60 Normal >=60 [facility] Comment on above: Performed By: #### A 1C #### [facility] [address] [place] [address] Dr. Vicky Bustos Glucose [Mass/Vol] 139 mg/dL Critically high 74-106 [facility] Comment on above: Performed By: #### A 1C #### [facility] [address] [place] [address] Dr. Vicky Bustos Potassium [Moles/Vol] 4.6 mmol/L Normal 3.5-5.1 [facility] Comment on above: Performed By: #### A 1C #### [facility] [address] [place] [address] Dr. Vicky Bustos Sodium [Moles/Vol] 139 mmol/L Normal 136-145 [facility] Comment on above: Performed By: #### A 1C #### [facility] [address] [place], [place] [address] Dr. Vicky Bustos Urea nitrogen [Mass/Vol] 14.0 mg/dL Normal 7.0-18.0 [facility] Comment on above: Performed By: #### A 1C #### [facility] [address] [place], [place] [address] Dr. Vicky Bustos Urea nitrogen/Creatinine [Mass ratio] 15.1 mg/mg Normal [facility] Comment on above: Performed By: #### A 1C #### [facility] [address] [place], [place] [address] Dr. Vicky Bustos Physician Referralon 023 Physician Referral [id number] D:127 Normal [facility] Office Visit (Cardiology)on 09-01-2022 Follow-up visit Diagnoses/Problems Assessed Peripheral neuropathy (356.9) (G62.9) Primary hypertension (401.9) (I10) Mixed hyperlipidemia (272.2) (E78.2) Diabetes mellitus (250.00) (E11.9) Class 1 obesity with body mass index (BMI) of 31.0 to 31.9 in adult (278.00,V85.31) (E66.9,Z68.31) Never a smoker Orders Class 1 obesity with body mass index (BMI) of 31.0 to 31.9 in adult Healthy Weight Tips; Status:Complete - Retrospective Authorization; Done: 01Sep2022 Some eating tips that can help you lose weight.; Status:Complete - Retrospective Authorization; Done: 01Sep2022 Class 1 obesity with body mass index (BMI) of 31.0 to 31.9 in adult, Diabetes mellitus, Mixed hyperlipidemia, Primary hypertension, PSVT (paroxysmal supraventricular tachycardia) Basic Metabolic Panel; Status:Active - Retrospective Authorization; Requested for:22Sep2022; Lipid Panel; Status:Active - Retrospective Authorization; Requested for:22Sep2022; Primary hypertension Start: Losartan Potassium-HCTZ 50-12.5 MG Oral Tablet; TAKE 1 TABLET BY MOUTH EVERY DAY PSVT (paroxysmal supraventricular tachycardia) IO EKG Electrocardiogram- 12 Lead; Status:Complete; Done: [id number] SocHx: Never a smoker Tobacco Use Screening; Status:Complete; Done: [id number] Patient Instructions Please bring all medicines, vitamins, and herbal supplements with you when you come to the office. Prescriptions will not be filled unless you are compliant with your follow up appointments or have a follow up appointment scheduled as per instruction of your physician. Refills should be requested at the time of your visit. Blood Pressure Follow Up In 6 weeks. Follow up in 3 months The provider reviewed the following test(s) and result(s) with the patient: ECG, echocardiogram and laboratory tests Chief Complaint FRANKIE DE ANDA is being seen for a consultation for chest discomfort. History of Present Illness Patient is seen in consultation at the request of his primary care physician regarding concerns of heart disease He is an individual with a history of diabetes for quite some time. He has developed significant peripheral neuropathy in this regard. He also has hyperlipidemia adequately treated. Recently blood pressure has been problematic. The patient seems surprised that his blood pressure is high but detailed review of his chart demonstrates that in the past he was on not only a beta-horacio but also lisinopril and an alpha-horacio (tamsulosin). I pointed out to him that previously he was on triple therapy for hypertension and now monotherapy and the elevated blood pressure should not be a surprise. This puts his mind significantly at ease. In regards to the blood pressure we will intensify therapy and initiate losartan with hydrochlorothiazide and perform follow-up chemistries and a blood pressure check. We discussed the presence or absence of heart disease. He is not very active because of neuropathy but he has no symptoms whatsoever of heart disease. He is a never smoker none of his siblings have heart disease. Admittedly he has diabetes hypertension and hyperlipidemia but a normal EKG and a normal echo and in the absence of symptoms I am not overtly suggestive of significant flow-limiting coronary disease and because of this I recommended for the time being that we forego any consideration of stress testing we did educate him regarding symptoms to watch for and encouraged him to call if they arise or occur. We did advocate the merits of diet and weight loss because of his favorable impact on blood pressure and diabetes and he understands our recommendation. Surgical History Problems History of Carotid artery catheterization History of Circumcision Denied: History of Complete colonoscopy History of Tonsillectomy with adenoidectomy Current Meds Medication NameInstruction Aspirin EC 81 MG Oral Tablet Delayed ReleaseTAKE 1 TABLET DAILY. Carvedilol 12.5 MG Oral TabletTAKE 1 TABLET TWICE DAILY WITH MEALS. Flonase Allergy Relief 50 MCG/ACT Nasal SuspensionUSE 1 TO 2 SPRAYS IN EACH NOSTRIL ONCE DAILY. metFORMIN HCl - 500 MG Oral TabletTAKE 1 TABLET EVERY 12 HOURS WITH FOOD. Rosuvastatin Calcium 5 MG Oral TabletTAKE 1 TABLET DAILY. Allergies Medication Penicillins Recorded By: Gayle De Santiago; 09/01/2022 8:52:53 AM Social History Problems Daily caffeine consumption, 2-3 servings a day Never a smoker No illicit drug use Social alcohol use (V49.89) (Z78.9) Review of Systems Constitutional: not feeling tired. Eyes: no eyesight problems. ENT: no hearing loss and no nosebleeds. Cardiovascular: no intermittent leg claudication and as noted in HPI. Respiratory: no chronic cough and no shortness of breath. Gastrointestinal: no change in bowel habits and no blood in stools. Genitourinary: no urinary frequency and no hematuria. Skin: no skin rashes. Neurological: no seizures and no frequent falls. Psychiatric: no depression and not suicidal. All o (more content not included)... Normal [facility] CARDIAC GERRY 3-6on 3 CK [Catalytic activity/Vol] 134 U/L Normal 39-308 [facility] Comment on above: Performed By: #### A 1C #### [facility] [address] [place], [place] [address] Dr. Vicky Bustos CK.MB [Mass/Vol] 1.32 ng/mL Normal <=3.60 [facility] Comment on above: Performed By: #### A 1C #### [facility] [address] [place], [place] [address] Dr. Vikcy Bustos HSTROP 7.3 pg/mL Normal 4.0-76.1 [facility] Comment on above: Result Comment: CUT- OFF POINTS HAVE BEEN ESTABLISHED BASED ON THE FOURTH UNIVERSAL DEFINITIONS OF MYOCARDIAL INFARCTION. THE UPPER REFERENCE LIMIT (URL) OF TROPONIN, DEFINED THE 99TH PERCENTILE OF cTnI DISTRIBUTION IN A REFERENCE POPULATION, HAS BEEN CONFIRMED THE DECISION THRESHOLD FOR ND DIAGNOSIS. Performed By: #### A 1C #### [facility] [address] [place] [address] Dr. Vicky Bustos CARDIAC GERRY ADMITon 023 CK [Catalytic activity/Vol] 129 U/L Normal 39-308 [facility] Comment on above: Performed By: #### C GUILLERMINA, BMP #### [facility] [address] [place] [address] Dr. Vicky Bustos CK.MB [Mass/Vol] 1.21 ng/mL Normal <=3.60 [facility] Comment on above: Performed By: #### C GUILLERMINA, BMP #### [facility] [address] [place] [address] Dr. Vicky Bustos HSTROP 5.7 pg/mL Normal 4.0-76.1 [facility] Comment on above: Result Comment: CUT- OFF POINTS HAVE BEEN ESTABLISHED BASED ON THE FOURTH UNIVERSAL DEFINITIONS OF MYOCARDIAL INFARCTION. THE UPPER REFERENCE LIMIT (URL) OF TROPONIN, DEFINED THE 99TH PERCENTILE OF cTnI DISTRIBUTION IN A REFERENCE POPULATION, HAS BEEN CONFIRMED THE DECISION THRESHOLD FOR ND DIAGNOSIS. Performed By: #### C GUILLERMINA, BMP #### [facility] [address] [place] [address] Dr. Vicky Bustos KOBI 92 ng/mL Normal 16-96 [facility] Comment on above: Performed By: #### C GUILLERMINA, BMP #### [facility] [address] [place] [address] Dr. Vicky Bustos CBC AUTO DIFFon 08-18-2022 BASO # 0.0 103/ul Normal 0.0-0.1 [facility] Comment on above: Performed By: #### C BC #### [facility] [address] [place] [address] Dr. Vicky Bustos Basophils/100 WBC (Bld) 0.4 % Normal 0.2-2.0 [facility] Comment on above: Performed By: #### C BC #### [facility] [address] [place] [address] Dr. Vicky Bustos EO # 0.4 103/ul Normal 0.0-0.7 [facility] Comment on above: Performed By: #### C BC #### [facility] [address] [place] [address] Dr. Vicky Bustos Eosinophils/100 WBC (Bld) 5.5 % Normal 0.9-7.0 [facility] Comment on above: Performed By: #### C BC #### [facility] [address] [place] [address] Dr. Vicky Bustos Erythrocyte distribution width (RBC) [Ratio] 13.9 % Normal 11.0-15.0 [facility] Comment on above: Performed By: #### C BC #### [facility] [address] [place] [address] Dr. Vicky Bustos Hematocrit (Bld) [Volume fraction] 41.1 % Critically low 42.0-54.0 [facility] Comment on above: Performed By: #### C BC #### [facility] [address] [place] [address] Dr. Vicky Bustos Hemoglobin (Bld) [Mass/Vol] 13.6 g/dL Critically low 14.0-18.0 [facility] Comment on above: Performed By: #### C BC #### [facility] [address] [place] [address] Dr. Vicky Bustos IG # 0.03 10e3/ul Normal 0.00-0.03 [facility] Comment on above: Performed By: #### C BC #### [facility] [address] [place] [address] Dr. Vicky Bustos IG % 0.4 % Normal 0.0-0.5 [facility] Comment on above: Performed By: #### C BC #### [facility] [address] [place] [address] Dr. Vicky Bustos LYMPH # 1.8 103/ul Normal 1.2-3.8 [facility] Comment on above: Performed By: #### C BC #### [facility] [address] [place] [address] Dr. Vicky Bustos Lymphocytes/100 WBC (Bld) 25.1 % Normal 20.5-60.0 [facility] Comment on above: Performed By: #### C BC #### [facility] [address] [place] [address] Dr. Vicky Bustos MANUAL DIFF REQ NO Normal [facility] Comment on above: Performed By: #### C BC #### [facility] [address] [place] [address] Dr. Vicky Bustos MCH (RBC) [Entitic mass] 27.4 pg Normal 25.9-34.0 [facility] Comment on above: Performed By: #### C BC #### [facility] [address] [place] [address] Dr. Vicky Bustos MCHC (RBC) [Mass/Vol] 33.1 g/dL Normal 29.9-35.2 [facility] Comment on above: Performed By: #### C BC #### [facility] [address] [place] [address] Dr. Vicky Bustos MCV (RBC) [Entitic vol] 82.7 fL Normal 80.0-94.0 [facility] Comment on above: Performed By: #### C BC #### [facility] [address] [place] [address] Dr. Vicky Bustos MONO # 0.6 103/ul Normal 0.3-0.8 [facility] Comment on above: Performed By: #### C BC #### [facility] [address] [place] [address] Dr. Vicky Bustos Monocytes/100 WBC (Bld) 8.3 % Normal 1.7-12.0 [facility] Comment on above: Performed By: #### C BC #### [facility] [address] [place] [address] Dr. Vicky Bustos NEUT # 4.3 103/ul Normal 1.4-6.5 [facility] Comment on above: Performed By: #### C BC #### [facility] [address] [place] [address] Dr. Vicky Bustos Neutrophils/100 WBC (Bld) 60.3 % Normal 43.0-75.0 [facility] Comment on above: Performed By: #### C BC #### [facility] [address] [place], [place] [id number] Dr. Vicky Bustos Platelet mean volume (Bld) [Entitic vol] 9.4 fL Critically low 9.5-13.5 [facility] Comment on above: Performed By: #### C BC #### [facility] [address] [place] [address] Dr. Vicky Bustos PLT 175 103/ul Normal 150-450 [facility] Comment on above: Performed By: #### C BC #### [facility] [address] [place] [address] Dr. Vicky Bustos RBC 4.97 106/ul Normal 4.70-6.10 [facility] Comment on above: Performed By: #### C BC #### [facility] [address] [place] [address] Dr. Vicky Bustos WBC 7.1 103/ul Normal 4.0-11.0 [facility] Comment on above: Performed By: #### C BC #### [facility] [address] [place] [address] Dr. Vicky Bustos PROF CHEM 8 (BAS METB)on Anion gap [Moles/Vol] 12.5 mmol/L Normal [facility] Comment on above: Performed By: #### C GUILLERMINA, BMP #### [facility] [address] [place] [address] Dr. Vicky Bustos Calcium [Mass/Vol] 9.0 mg/dL Normal 8.5-10.1 [facility] Comment on above: Performed By: #### C GUILLERMINA, BMP #### [facility] [address] [place] [address] Dr. Vicky Bustos Chloride [Moles/Vol] 102 mmol/L Normal 98-107 [facility] Comment on above: Performed By: #### C GUILLERMINA, BMP #### [facility] [address] [place] [address] Dr. Vicky Bustos CO2 [Moles/Vol] 27.3 mmol/L Normal 21.0-32.0 [facility] Comment on above: Performed By: #### C GUILLERMINA, BMP #### [facility] [address] [address] [address] Vicky Bustos Creatinine [Mass/Vol] 0.78 mg/dL Normal 0.70-1.30 [facility] Comment on above: Performed By: #### C GUILLERMINA, BMP #### [facility] [address] [address] [address] Vicky Bustos EGFR-AF MICRONESIAN >60 Normal >=60 [facility] Comment on above: Performed By: #### C BILLYM, BMP #### [facility] [address] [address] [address] Vicky Bustos EGFR-NON AF MICRONESIAN >60 Normal >=60 [facility] Comment on above: Performed By: #### C GUILLERMINA, BMP #### [facility] [address] [address] [address] Vicky Bustos Glucose [Mass/Vol] 160 mg/dL Critically high 74-106 [facility] Comment on above: Performed By: #### C GUILLERMINA, BMP #### [facility] [address] [address] [address] Vicky Bustos Potassium [Moles/Vol] 3.8 mmol/L Normal 3.5-5.1 [facility] Comment on above: Performed By: #### C GUILLERMINA, BMP #### [facility] [address] [address] [address] Vicky Bustos Sodium [Moles/Vol] 138 mmol/L Normal 136-145 [facility] Comment on above: Performed By: #### C GUILLERMINA, BMP #### [facility] [address] [address] [address] Vicky Bustos Urea nitrogen [Mass/Vol] 12.0 mg/dL Normal 7.0-18.0 [facility] Comment on above: Performed By: #### C GUILLERMINA, BMP #### [facility] [address] [address] [address] Vicky Bustos Urea nitrogen/Creatinine [Mass ratio] 15.4 mg/mg Normal [facility] Comment on above: Performed By: #### C GUILLERMINA, BMP #### [facility] [address] [place], [place] [address] Dr. Vicky Bustos XR CHEST 1 Von 08-18-2022 XR CHEST 1 V EXAMINATION: XR CHES T 1 V HISTORY: Chest pain COMPARISON: None. TECHNIQUE: PA and lateral chest x-rays FINDINGS: The lung parenchyma is free of consolidation or infiltrate. No pneumothorax or pleural effusion. The cardiac, mediastinal and hilar contours are normal. The visualized osseous structures exhibit no gross abnormality. IMPRESSION: No acute cardiopulmonary abnormality. Electronically authenticated by: KALEB LIRA Date: 2022-08-17 22:51 Normal [facility] ECHOCARDIO M/2D COMPLETEon 0 08-01-2022 ECHOCARDIO M/2D COMPLETE Patient: FRANKIE DE ANDA Exam Date: 08/01/2022 : 1950 Gender:M Ordering : DR WESTON BORJA M.D. Admission #: [id number] Family : Order #: [id number] CLICK HERE TO VIEW EXAM ECHOCARDIOGRAM REPORT PROCEDURE: CARDIO PULMONARY ECHOCARDIO M/2D COMP INDICATIONS: Cardiac murmur, ND, hypertension, diabetes COMPARISON: None. DESCRIPTION: COMPLETE ECHOCARDIOGRAM Real-time transthoracic echocardiography with 2D, M-mode, spectral and color flow Doppler performed. QUALITY: Technical quality was good. LEFT VENTRICLE: Normal chamber size. Moderate proximal septal hypertrophy (sigmoid septum). No evidence of outflow tract obstruction. LV EF: Normal left ventricular ejection fraction, (>55%). DIASTOLIC: Diastolic function is indeterminate. Septal E' is 11 m/s and Lateral E' is 9 m/s. ATRIAL SEPTUM: Visually appears intact. LEFT ATRIUM: Normal chamber size. RIGHT ATRIUM: Normal chamber size. RIGHT VENTRICLE: Normal chamber size. Normal right ventricular systolic function. TRICUSPID VALVE: Normal mobility and thickness. No stenosis with no regurgitation. MITRAL VALVE: Normal mobility and thickness. No evidence of mitral valve stenosis. Mild mitral annular calcification. Trivial mitral regurgitation. AORTIC VALVE: Normal trileaflet appearance. Normal leaflet mobility. No evidence of aortic valve stenosis. Multifocal calcifications. Trivial aortic regurgitation. AORTIC ROOT: Normal diameter and appearance. PULMONIC VALVE: Normal thickness and mobility. No stenosis. Mild regurgitation. PERICARDIUM: No evidence of pericardial effusion. IVC: Collapses with inspirations. PLEURA: CONCLUSION: 1. Left ventricular systolic function is normal. There is moderate proximal septal hypertrophy with no evidence of outflow tract obstruction. LVEF is 65%. 2. Normal right ventricular size and systolic function. 3. No significant valvular dysfunction. 4. No pericardial effusion. Adult Echocardiography Procedure Report Left Ventricle LVEDD (3.7 - 5.6 cm): 4.53 cm LVESD (2.2 - 4.0 cm): 2.36 cm LVIVS thickness (0.6 - 1.2 cm): 1.85 cm LVPW thickness (0.5 - 1.0 cm): 0.98 cm e': 0.09 m/s E - e': 6.47 LVOT Max Gradient: 1.49 mm[Hg] Peak Velocity (LVOT): 0.61 m/s LVOT Diameter 2.37 cm Left Ventricular Ejection Fraction: 65 % Left Atrium LA Volume Index (2D A2C): 80.46 ml, 80.46 ml Left Atrium Systolic Dimension: 3.35 cm Mitral Valve MV E to A Ratio: 0.73 Mitral Valve A-Wave Peak Velocity: 0.82 m/s Mitral Valve E-Wave Peak Velocity: 0.60 m/s Right Ventricle Aorta AO Root Diam: 3.96 cm Aortic Valve AoV Area (Peak Tino): 2.84 cm2, 2.84 cm2 Peak Velocity(Antegrade Flow): 0.95 m/s Peak Gradient(Antegrade Flow): 3.62 mm[Hg] Tricuspid Valve Peak Velocity: 0.40 m/s Pulmonic Valve Peak Velocity: 1.38 m/s, 1.39 m/s Peak Gradient: 7.63 mm[Hg], 7.74 mm[Hg] Right Atrium Right Atrium Systolic Pressure: 31.25 ml, 31.25 ml Dictated by: Cristo Gregory M.D. on 08/07/2022 at 09:12 Approved by: Cristo Gregory M.D. on 08/07/2022 at 09:19 Normal [facility] CBC AUTO DIFFon 07-19-2022 BASO # 0.0 103/ul Normal 0.0-0.1 [facility] Comment on above: Performed By: #### C BC #### [facility] [address] [place] [address] Dr. Vicky Bustos Basophils/100 WBC (Bld) 0.4 % Normal 0.2-2.0 [facility] Comment on above: Performed By: #### C BC #### [facility] [address] [address] [address] Vicky Bustos EO # 0.2 103/ul Normal 0.0-0.7 [facility] Comment on above: Performed By: #### C BC #### [facility] [address] [address] [address] Vicky Bustos Eosinophils/100 WBC (Bld) 3.9 % Normal 0.9-7.0 [facility] Comment on above: Performed By: #### C BC #### [facility] [address] [place] [address] Dr. Vicky Bustos Erythrocyte distribution width (RBC) [Ratio] 14.3 % Normal 11.0-15.0 [facility] Comment on above: Performed By: #### C BC #### [facility] [address] [place] [address] Dr. Vicky Bustos Hematocrit (Bld) [Volume fraction] 38.1 % Critically low 42.0-54.0 [facility] Comment on above: Performed By: #### C BC #### [facility] [address] [place] [address] Dr. Vicky Bustos Hemoglobin (Bld) [Mass/Vol] 12.6 g/dL Critically low 14.0-18.0 [facility] Comment on above: Performed By: #### C BC #### [facility] [address] [place] [address] Dr. Vicky Bustos IG # 0.05 10e3/ul Critically high 0.00-0.03 [facility] Comment on above: Performed By: #### C BC #### [facility] [address] [place] [address] Dr. Vicky Bustos IG % 0.9 % Critically high 0.0-0.5 [facility] Comment on above: Performed By: #### C BC #### [facility] [address] [place] [address] Dr. Vicky Bustos LYMPH # 0.9 103/ul Critically low 1.2-3.8 [facility] Comment on above: Performed By: #### C BC #### [facility] [address] [place] [address] Dr. Vicky Bustos Lymphocytes/100 WBC (Bld) 16.3 % Critically low 20.5-60.0 [facility] Comment on above: Performed By: #### C BC #### [facility] [address] [place] [address] Dr. Vikcy Bustos MANUAL DIFF REQ NO Normal [facility] Comment on above: Performed By: #### C BC #### [facility] [address] [place] [address] Dr. Vicky Bustos MCH (RBC) [Entitic mass] 27.2 pg Normal 25.9-34.0 [facility] Comment on above: Performed By: #### C BC #### [facility] [address] [place] [address] Dr. Vicky Bustos MCHC (RBC) [Mass/Vol] 33.1 g/dL Normal 29.9-35.2 [facility] Comment on above: Performed By: #### C BC #### [facility] [address] [place] [address] Dr. Vicky Bustos MCV (RBC) [Entitic vol] 82.3 fL Normal 80.0-94.0 [facility] Comment on above: Performed By: #### C BC #### [facility] [address] [place] [address] Dr. Vicky Bustos MONO # 0.9 103/ul Critically high 0.3-0.8 [facility] Comment on above: Performed By: #### C BC #### [facility] [address] [place] [address] Dr. Vicky Bustos Monocytes/100 WBC (Bld) 16.7 % Critically high 1.7-12.0 [facility] Comment on above: Performed By: #### C BC #### [facility] [address] [place] [address] Dr. Vicky Bustos NEUT # 3.5 103/ul Normal 1.4-6.5 [facility] Comment on above: Performed By: #### C BC #### [facility] [address] [address] [address] Vicky Bustos Neutrophils/100 WBC (Bld) 61.8 % Normal 43.0-75.0 [facility] Comment on above: Performed By: #### C BC #### [facility] [address] [address] [address] Vicky Bustos Platelet mean volume (Bld) [Entitic vol] 9.0 fL Critically low 9.5-13.5 [facility] Comment on above: Performed By: #### C BC #### [facility] [address] [address] [address] Vicky Bustos PLT 136 103/ul Critically low 150-450 [facility] Comment on above: Performed By: #### C BC #### [facility] [address] [place] [address] Dr. Vicky Bustos RBC 4.63 106/ul Critically low 4.70-6.10 [facility] Comment on above: Performed By: #### C BC #### [facility] [address] [address] [address] Vicky Bustos WBC 5.6 103/ul Normal 4.0-11.0 [facility] Comment on above: Performed By: #### C BC #### [facility] [address] [place] [address] Dr. Vicky Bustos ER URINE PROFILEon 3 Bilirubin Ql (U) Negative Normal NEGATIVE [facility] Comment on above: Performed By: #### E RUR #### [facility] [address] [place] [address] Dr. Vicky Bustos Clarity (U) CLEAR Normal CLEAR [facility] Comment on above: Performed By: #### E RUR #### [facility] [address] [place] [address] Dr. Vicky Bustos Color (U) LT. YELLOW Normal YELLOW [facility] Comment on above: Performed By: #### E RUR #### [facility] [address] [place] [address] Dr. Vicky BORREGO A micrscopic examination will be performed if indicated. Normal [facility] Comment on above: Performed By: #### E RUR #### [facility] [address] [place] [address] Dr. Vicky Bustos Glucose Ql (U) Negative Normal NEGATIVE [facility] [place] Comment on above: Performed By: #### E RUR #### [facility] [address] [place] [address] Dr. Vicky Bustos Hemoglobin Ql (U) SMALL Abnormal NEGATIVE [facility] Comment on above: Performed By: #### E RUR #### [facility] [address] [place] [address] Dr. Vicky Bustos Ketones Ql (U) Negative Normal NEGATIVE [facility] [place] Comment on above: Performed By: #### E RUR #### [facility] [address] [place] [address] Dr. iVcky Bustos LEUKOCYTES Negative Normal NEGATIVE [facility] Comment on above: Performed By: #### E RUR #### [facility] [address] [place] [address] Dr. Vicky Bustos Nitrite Ql (U) Negative Normal NEGATIVE [facility] [place] Comment on above: Performed By: #### E RUR #### [facility] [address] [place] [address] Dr. Vicky Bustos pH (U) 5.5 [pH] Normal 5-9 [facility] Comment on above: Performed By: #### E RUR #### [facility] [address] [place] [address] Dr. Vicky Bustos SPEC GRAVITY 1.025 Normal 1.005-<=1.025 [facility] Comment on above: Performed By: #### E RUR #### [facility] [address] [place] [address] Dr. Vicky Bustos UA PROTEIN TRACE Normal NEGATIVE/ TRACE [facility] Comment on above: Performed By: #### E RUR #### [facility] [address] [place] [address] Dr. Vicky Bustos UR MICRO IND NOT INDICATED Normal [facility] Comment on above: Performed By: #### E RUR #### [facility] [address] [address] [address] Vicky Bustos Urobilinogen Qn (U) 0.2 {Troy'U}/dL Normal 0.2 - 1. 0 [facility] Comment on above: Performed By: #### E RUR #### [facility] [address] [address] [address] Vicky Bustos PROF CHEM 8 (BAS METB)on Anion gap [Moles/Vol] 13.3 mmol/L Normal [facility] Comment on above: Performed By: #### B MP #### [facility] [address] [place] [address] Dr. Vicky Bustos Calcium [Mass/Vol] 8.6 mg/dL Normal 8.5-10.1 [facility] Comment on above: Performed By: #### B MP #### [facility] [address] [place] [address] Dr. Vicky Bustos Chloride [Moles/Vol] 98 mmol/L Normal 98-107 [facility] Comment on above: Performed By: #### B MP #### [facility] [address] [place] [address] Dr. Vicky Bustos CO2 [Moles/Vol] 24.9 mmol/L Normal 21.0-32.0 [facility] Comment on above: Performed By: #### B MP #### [facility] [address] [place] [address] Dr. Vicky Bustos Creatinine [Mass/Vol] 1.00 mg/dL Normal 0.70-1.30 [facility] Comment on above: Performed By: #### B MP #### [facility] [address] [place] [address] Dr. Vicky Bustos EGFR-AF MICRONESIAN >60 Normal >=60 [facility] Comment on above: Performed By: #### B MP #### [facility] [address] [place] [address] Dr. Vicky Bustos EGFR-NON AF MICRONESIAN >60 Normal >=60 [facility] Comment on above: Performed By: #### B MP #### [facility] [address] [address] [address] Vicky Bustos Glucose [Mass/Vol] 215 mg/dL Critically high 74-106 T [facility] Comment on above: Performed By: #### B MP #### [facility] [address] [address] [address] Vicky Bustos Potassium [Moles/Vol] 4.2 mmol/L Normal 3.5-5.1 [facility] Comment on above: Performed By: #### B MP #### [facility] [address] [address] [address] Vicky Bustos Sodium [Moles/Vol] 132 mmol/L Critically low 136-145 Th [facility] Comment on above: Performed By: #### B MP #### [facility] [address] [place] [address] Dr. Vicky Bustos Urea nitrogen [Mass/Vol] 11.0 mg/dL Normal 7.0-18.0 [facility] Comment on above: Performed By: #### B MP #### [facility] [address] [place] [address] Dr. Vicky Bustos Urea nitrogen/Creatinine [Mass ratio] 11.0 mg/mg Normal [facility] Comment on above: Performed By: #### B MP #### [facility] [address] [place] [address] Dr. Vicky Bustos RESPIRATORY PANEL PLUSon Adenovirus Not detected Normal NOT DETECTED [facility] [place] Comment on above: Performed By: #### R SPLUS #### [facility] [address] [place] [address] Dr. Vicky Matta. Parapertusis Not detected Normal NOT DETECTED [facility] Comment on above: Performed By: #### R SPLUS #### [facility] [address] [place] [address] Dr. Vicky Bustos B. Pertussis Not detected Normal NOT DETECTED [facility] Comment on above: Performed By: #### R SPLUS #### [facility] [address] [place] [address] Dr. Vicky Bustos Chlamydia Pneumoniae Not detected Normal NOT DETECTED [facility] Comment on above: Performed By: #### R SPLUS #### [facility] [address] [place] [address] Dr. Vicky Bustos Coronavirus 229E Not detected Normal NOT DETECTED [facility] Comment on above: Performed By: #### R SPLUS #### [facility] [address] [place] [address] Dr. Vicky Bustos Coronavirus HKU1 Not detected Normal NOT DETECTED [facility] Comment on above: Performed By: #### R SPLUS #### [facility] [address] [place] [address] Dr. Vicky Bustos Coronavirus NL63 Not detected Normal NOT DETECTED [facility] Comment on above: Performed By: #### R SPLUS #### [facility] [address] [place] [address] Dr. Vicky Bustos Coronavirus OC43 Not detected Normal NOT DETECTED [facility] Comment on above: Performed By: #### R SPLUS #### [facility] [address] [place] [address] Dr. Vicky Bustos Influenza A H1 Not detected Normal NOT DETECTED [facility] Comment on above: Performed By: #### R SPLUS #### [facility] [address] [place] [address] Dr. Vicky Bustos Influenza A H1 2009 Not detected Normal NOT DETECTED [facility] Comment on above: Performed By: #### R SPLUS #### [facility] [address] [place] [address] Dr. Vicky Bustos Influenza A H3 Not detected Normal NOT DETECTED [facility] Comment on above: Performed By: #### R SPLUS #### [facility] [address] [place] [address] Dr. Vicky Bustos Influenza B Not detected Normal NOT DETECTED [facility] Comment on above: Performed By: #### R SPLUS #### [facility] [address] [place] [address] Dr. Vicky Bustos Metapneumovirus Not detected Normal NOT DETECTED [facility] Comment on above: Performed By: #### R SPLUS #### [facility] [address] [place] [address] Dr. Vicky Bustos Mycoplas. Pneumoniae Not detected Normal NOT DETECTED [facility] Comment on above: Performed By: #### R SPLUS #### [facility] [address] [place] [address] Dr. Vicky Bustos Parainfluenza 1 Not detected Normal NOT DETECTED [facility] Comment on above: Performed By: #### R SPLUS #### [facility] [address] [place] [address] Dr. Vicky Bustos Parainfluenza 2 Not detected Normal NOT DETECTED [facility] Comment on above: Performed By: #### R SPLUS #### [facility] [address] [place] [address] Dr. Vicky Bustos Parainfluenza 3 Not detected Normal NOT DETECTED [facility] Comment on above: Performed By: #### R SPLUS #### [facility] [address] [place] [address] Dr. Vicky Bustos Parainfluenza 4 Not detected Normal NOT DETECTED [facility] Comment on above: Performed By: #### R SPLUS #### [facility] [address] [place] [address] Dr. Vicky Bustos Rhino/Enterovirus Not detected Normal NOT DETECTED [facility] Comment on above: Performed By: #### R SPLUS #### [facility] [address] [place] [address] Dr. Vicky Bustos RP2 Header 1 RESPIRATORY PANEL: VIRUSES Normal [facility] Comment on above: Performed By: #### R SPLUS #### [facility] [address] [place] [address] Dr. Vicky Bustos RP2 Header 2 RESPIRATORY PANEL: BACTERIA Normal [facility] Comment on above: Performed By: #### R SPLUS #### [facility] [address] [place] [address] Dr. Vicky Bustos RSV Not detected Normal NOT DETECTED [facility] Comment on above: Performed By: #### R SPLUS #### [facility] [address] [address] [address] Vicky Bustos SARS-CoV-2 (COVID-19) RNA JEFF+probe Ql (Unsp spec) Detected Abnormal NOT DETECTED [facility] Comment on above: Performed By: #### R SPLUS #### [facility] [address] [address] [address] Vicky Bustos PSA, FREE AND TOTAL RATIOon 01-15-2022 % Free PSA 28.5 % Normal [facility] Comment on above: Result Comment: The table below lists the probability of prostate cancer for men with non-suspicious BREANN results and total PSA between 4 and 10 ng/mL, by patient age (Nyasia et al, ISAÍAS 1998, 279:1542). % Free PSA 50-64 yr 65-75 yr 0.00-10.00% 56% 55% 10.01-15.00% 24% 35% 15.01-20.00% 17% 23% 20.01-25.00% 10% 20% >25.00% 5% 9% Please note: Nyasia et al did not make specific recommendations regarding the use of percent free PSA for any other population of men. Performed By: #### A 1C #### [facility] [address] [place] [address] Dr. Vicky Bustos Prostate specific Ag [Mass/Vol] 1.3 ng/mL Normal 0.0-4.0 [facility] Comment on above: Result Comment: Anna PAYNE methodology. . According to the [employer], Serum PSA should decrease and remain at undetectable levels after radical prostatectomy. The AUA defines biochemical recurrence as an initial PSA value 0.2 ng/mL or greater followed by a subsequent confirmatory PSA value 0.2 ng/mL or greater. Values obtained with different assay methods or kits cannot be used interchangeably. Results cannot be interpreted as absolute evidence of the presence or absence of malignant disease. Performed By: #### A 1C #### [facility] [address] [address] [address] Vicky Bustos PSA, Free 0.37 ng/mL Normal N/A [facility] Comment on above: Result Comment: Anna PAYNE methodology. Performed By: #### A 1C #### [facility] [address] [place] [address] Dr. Vicky Bustos CBC AUTO DIFFon 01-14-2022 BASO # 0.1 103/ul Normal 0.0-0.1 [facility] Comment on above: Performed By: #### C BC #### [facility] [address] [place] [address] Dr. Vicky Bustos Basophils/100 WBC (Bld) 0.7 % Normal 0.2-2.0 [facility] Comment on above: Performed By: #### C BC #### [facility] [address] [place] [address] Dr. Vicky Bustos EO # 0.5 103/ul Normal 0.0-0.7 [facility] Comment on above: Performed By: #### C BC #### [facility] [address] [place] [address] Dr. Vicky Bustos Eosinophils/100 WBC (Bld) 6.8 % Normal 0.9-7.0 [facility] Comment on above: Performed By: #### C BC #### [facility] [address] [place] [address] Dr. Vicky Bustos Erythrocyte distribution width (RBC) [Ratio] 13.9 % Normal 11.0-15.0 [facility] Comment on above: Performed By: #### C BC #### [facility] [address] [place] [address] Dr. Vicky Bustos Hematocrit (Bld) [Volume fraction] 44.6 % Normal 42.0-54.0 [facility] Comment on above: Performed By: #### C BC #### [facility] [address] [place] [address] Dr. Vicky Bustos Hemoglobin (Bld) [Mass/Vol] 14.7 g/dL Normal 14.0-18.0 [facility] Comment on above: Performed By: #### C BC #### [facility] [address] [place] [address] Dr. Vicky Bustos IG # 0.04 10e3/ul Critically high 0.00-0.03 [facility] Comment on above: Performed By: #### C BC #### [facility] [address] [place] [address] Dr. Vicky Bustos IG % 0.6 % Critically high 0.0-0.5 [facility] Comment on above: Performed By: #### C BC #### [facility] [address] [place] [address] Dr. Vicky Bustos LYMPH # 2.5 103/ul Normal 1.2-3.8 [facility] Comment on above: Performed By: #### C BC #### [facility] [address] [place] [address] Dr. Vicky Bustos Lymphocytes/100 WBC (Bld) 35.8 % Normal 20.5-60.0 [facility] Comment on above: Performed By: #### C BC #### [facility] [address] [place] [address] Dr. Vicky Bustos MANUAL DIFF REQ NO Normal [facility] Comment on above: Performed By: #### C BC #### [facility] [address] [place] [address] Dr. Vicky Bustos MCH (RBC) [Entitic mass] 27.7 pg Normal 25.9-34.0 [facility] Comment on above: Performed By: #### C BC #### [facility] [address] [place] [address] Dr. Vicky Bustos MCHC (RBC) [Mass/Vol] 33.0 g/dL Normal 29.9-35.2 [facility] Comment on above: Performed By: #### C BC #### [facility] [address] [place] [address] Dr. Vicky Bustos MCV (RBC) [Entitic vol] 84.0 fL Normal 80.0-94.0 [facility] Comment on above: Performed By: #### C BC #### [facility] [address] [place] [address] Dr. Vicky Bustos MONO # 0.5 103/ul Normal 0.3-0.8 [facility] Comment on above: Performed By: #### C BC #### [facility] [address] [address] [address] Vicky Bustos Monocytes/100 WBC (Bld) 7.3 % Normal 1.7-12.0 [facility] Comment on above: Performed By: #### C BC #### [facility] [address] [address] [address] Vicky Bustos NEUT # 3.4 103/ul Normal 1.4-6.5 [facility] Comment on above: Performed By: #### C BC #### [facility] [address] [address] [address] Vicky Bustos Neutrophils/100 WBC (Bld) 48.8 % Normal 43.0-75.0 [facility] Comment on above: Performed By: #### C BC #### [facility] [address] [place] [address] Dr. Vicky Bustos Platelet mean volume (Bld) [Entitic vol] 8.6 fL Critically low 9.5-13.5 [facility] Comment on above: Performed By: #### C BC #### [facility] [address] [place] [address] Dr. Vicky Bustos PLT 205 103/ul Normal 150-450 [facility] Comment on above: Performed By: #### C BC #### [facility] [address] [place] [address] Dr. Vicky Bustos RBC 5.31 106/ul Normal 4.70-6.10 [facility] Comment on above: Performed By: #### C BC #### [facility] [address] [place] [address] Dr. Vicky Bustos WBC 7.0 103/ul Normal 4.0-11.0 [facility] Comment on above: Performed By: #### C BC #### [facility] [address] [place] [address] Dr. Vicky Bustos GLYCOHEMOGLOBIN A1Con 2021 ADA RECOMMENDATION SEE BELOW Normal [facility] Comment on above: Result Comment: ADA RECOMMENDED LIMIT 4.0 - 6.0 ADA THERAPEUTIC TARGET < 7.0 ACTION SUGGESTED > 7.0 Performed By: #### A 1C #### [facility] [address] [address] [address] Vicky Bustos Glucose [Mass/Vol] 148 mg/dL Normal [facility] Comment on above: Performed By: #### A 1C #### [facility] [address] [address] [address] Vicky Bustos HbA1c (Bld) [Mass fraction] 6.8 % Critically high 4.5-6.2 [facility] Comment on above: Performed By: #### A 1C #### [facility] [address] [address] [address] Vicky Bustos LIPID PROFILEon 01-14-2022 CHOL-HDL RATIO NORM SEE BELOW Normal [facility] Comment on above: Result Comment: 3.3 - 4.4 LOW RISK 4.4 - 7.1 AVERAGE RISK 7.1 - 11.0 MODERATE RISK >11.0 HIGH RISK Performed By: #### A 1C #### [facility] [address] [place] [address] Dr. Vicky Bustos Cholesterol [Mass/Vol] 237 mg/dL Critically high <=200 [facility] Comment on above: Performed By: #### A 1C #### [facility] [address] [place] [address] Dr. Vicky Bustos Cholesterol in HDL [Mass/Vol] 54 mg/dL Normal 40-60 [facility] Comment on above: Performed By: #### A 1C #### [facility] [address] [address] [address] Vicky Bustos Cholesterol in LDL [Mass/Vol] 161.6 mg/dL Normal [facility] Comment on above: Performed By: #### A 1C #### [facility] [address] [place] [address] Dr. Vicky Bustos Cholesterol.total/C holesterol in HDL [Mass ratio] 4.4 {ratio} Normal [facility] Comment on above: Performed By: #### A 1C #### [facility] [address] [address] [address] Vicky Bustos HDL NORMAL > or = 60 mg/dl - LO W CARDIOVASCULAR RISK <40 mg/dl - HIGH CARDIOVASCULAR RISK Normal [facility] Comment on above: Performed By: #### A 1C #### [facility] [address] [address] [address] Vicky Bustos LDL CALC NORMAL SEE BELOW Normal [facility] Comment on above: Result Comment: <100 mg/dl OPTIMAL 100 - 129 mg/dl NEAR OR ABOVE OPTIMAL 130 - 159 mg/dl BORDERLINE HIGH 160 - 189 mg/dl HIGH >190 mg/dl VERY HIGH Performed By: #### A 1C #### [facility] [address] [address] [address] Vicky Bustos Triglyceride [Mass/Vol] 107 mg/dL Normal <=150 [facility] Comment on above: Performed By: #### A 1C #### [facility] [address] [place] [address] Dr. Vicky Bustos VLDL CALC 21.4 mg/dL Normal [facility] Comment on above: Performed By: #### A 1C #### [facility] [address] [address] [address] Vicky Bustos PROF 14(COMP METB)on 022 Albumin [Mass/Vol] 3.8 g/dL Normal 3.4-5.0 [facility] Comment on above: Performed By: #### A 1C #### [facility] [address] [address] [address] Vicky Bustos Albumin/Globulin [Mass ratio] 1.0 {ratio} Normal [facility] Comment on above: Performed By: #### A 1C #### [facility] [address] [address] [address] Vicky Bustos ALP [Catalytic activity/Vol] 77 U/L Normal 46-116 [facility] Comment on above: Performed By: #### A 1C #### [facility] [address] [address] [address] Vicky Bustos ALT [Catalytic activity/Vol] 17 U/L Normal 16-63 [facility] Comment on above: Performed By: #### A 1C #### [facility] [address] [address] [address] Vicky Bustos Anion gap [Moles/Vol] 12.2 mmol/L Normal [facility] Comment on above: Performed By: #### A 1C #### [facility] [address] [address] [address] Vicky Bustos AST [Catalytic activity/Vol] 13 U/L Critically low 15-37 [facility] Comment on above: Performed By: #### A 1C #### [facility] [address] [address] [address] Vicky Bustos Bilirubin [Mass/Vol] 1.0 mg/dL Normal 0.2-1.0 [facility] Comment on above: Performed By: #### A 1C #### [facility] [address] [place] [address] Dr. Vicky Bustos Calcium [Mass/Vol] 8.7 mg/dL Normal 8.5-10.1 [facility] Comment on above: Performed By: #### A 1C #### [facility] [address] [place] [address] Dr. Vicky Bustos Chloride [Moles/Vol] 100 mmol/L Normal 98-107 [facility] Comment on above: Performed By: #### A 1C #### [facility] [address] [place] [address] Dr. Vicky Bustos CO2 [Moles/Vol] 27.1 mmol/L Normal 21.0-32.0 [facility] Comment on above: Performed By: #### A 1C #### [facility] [address] [place] [address] Dr. Vicky Bustos Creatinine [Mass/Vol] 0.92 mg/dL Normal 0.70-1.30 [facility] Comment on above: Performed By: #### A 1C #### [facility] [address] [place] [address] Dr. Vicky Bustos EGFR-AF MICRONESIAN >60 Normal >=60 [facility] Comment on above: Performed By: #### A 1C #### [facility] [address] [place] [address] Dr. Vicky Bustos EGFR-NON AF MICRONESIAN >60 Normal >=60 [facility] Comment on above: Performed By: #### A 1C #### [facility] [address] [place] [address] Dr. Vicky Bustos Globulin (S) [Mass/Vol] 3.9 g/dL Normal [facility] Comment on above: Performed By: #### A 1C #### [facility] [address] [place] [address] Dr. Vicky Bustos Glucose [Mass/Vol] 120 mg/dL Critically high 74-106 [facility] Comment on above: Performed By: #### A 1C #### [facility] [address] [place] [address] Dr. Vicky Bustos Potassium [Moles/Vol] 4.3 mmol/L Normal 3.5-5.1 [facility] Comment on above: Performed By: #### A 1C #### [facility] [address] [place] [address] Dr. Vicky Bustos Protein [Mass/Vol] 7.7 g/dL Normal 6.4-8.2 [facility] Comment on above: Performed By: #### A 1C #### [facility] [address] [place] [address] Dr. Vicky Bustos Sodium [Moles/Vol] 135 mmol/L Critically low 136-145 [facility] Comment on above: Performed By: #### A 1C #### [facility] [address] [place] [address] Dr. Vicky Bustos Urea nitrogen [Mass/Vol] 18.0 mg/dL Normal 7.0-18.0 [facility] Comment on above: Performed By: #### A 1C #### [facility] [address] [place] [address] Dr. Vicky Bustos Urea nitrogen/Creatinine [Mass ratio] 19.6 mg/mg Normal [facility] Comment on above: Performed By: #### A 1C #### [facility] [address] [place] [address] Dr. Vicky Bustos [facility] SARS-CoV-2 (COVID-19) RNA JEFF+probe Ql (Unsp spec) Not detected Normal NOT DETECTED [facility] Comment on above: Result Comment: This test is not yet approved or cleared by the [place] FDA. When there are no FDA-approved or cleared tests available, and other criteria are met, FDA can make tests available under an emergency access mechanism called an Emergency Use Authorization (EUA). The EUA for this test is supported by the Computer [employer] Operator of Health and Human Service's (HHS's) declaration that circumstances exist to justify the emergency use of in vitro diagnostics for the detection and/or diagnosis of the virus that causes COVID-19. This EUA will remain in effect (meaning this test can be used) for the duration of the COVID-19 declaration justifying emergency of IVDs, unless it is terminated or revoked by FDA (after which the test may no longer be used). When diagnostic testing is negative, the possibility of a false negative should be considered in the context of a patient's recent exposures and the presence of clinical signs and symptoms consistent with SARS-CoV-2. Performed By: #### C [facility] #### [facility] [address] [place] [address] Dr. Vicky Bustos US carotid doppler BIon 10-30 US carotid doppler [facility] [address] [place] [address] Ultrasound Report Signed Patient: Frankie De Anda MR#: [id number] : 1950 Acct:[id number] Age/Sex: 71 / M ADM Date: 11/12/21 Loc: [facility] Room: Type: [facility] Attending Dr: Melchor Mondragon MD Ordering Provider: Melchor Mondragon MD Date of Service: 11/12/21 US/US carotid doppler BI: I65.23 Copies to: Melchor Mondragon MD CAROTID DUPLEX INDICATION: Carotid occlusive disease status post right carotid endarterectomy PROCEDURE: Color-flow duplex scanning is used to interrogate the extracranial carotid arterial system, as well as both vertebral arteries. The proximal right internal carotid artery shows a highest peak systolic velocity of 68.6 cm/s with an end-diastolic velocity of 16.5 cm/s . The mid internal carotid artery measures 54.9 cm/s peak systolic with an end-diastolic velocity of 18.1 cm/s . The distal segment measures 71.3 cm/s peak systolic with an end diastolic velocity of 23 cm/s . The velocities of the right common carotid artery are 84.5 cm/s peak systolic and 16.8 cm/s end- diastolic proximally and 75.2 cm/s peak systolic and 16.2 cm/s end-diastolic distally. The peak systolic velocity ratio of the internal to the common carotid artery is 0.84 . The right external carotid artery measures 106 cm/s peak systolic. The right vertebral artery is patent at 29.9 cm/s peak systolic and with antegrade flow. The proximal left internal carotid artery shows a highest peak systolic velocity of 64.6 cm/s with an end-diastolic velocity of 20.5 cm/s . The mid internal carotid artery measures 70.3 cm/s peak systolic with an end-diastolic velocity of 20.6 cm/s . The distal segment measures 85.6 cm/s peak systolic with an end diastolic velocity of 21.7 cm/s . The velocities of the left common carotid artery are 95.3 cm/s peak systolic and 17.3 cm/s end-diastolic proximally and 85.1 cm/s peak systolic and 19.3 cm/s end-diastolic distally. The peak systolic velocity ratio of the internal to the common carotid artery is 0.9 . The left external carotid artery measures 91.9 cm/s peak systolic. The left vertebral artery is patent at 49.7 cm/s peak systolic with antegrade flow. US/US carotid doppler BI IMPRESSION: NO HEMODYNAMICALLY SIGNIFICANT STENOSIS OF EITHER EXTRACRANIAL INTERNAL CAROTID ARTERY. BOTH VERTEBRAL ARTERIES ARE PATENT WITH ANTEGRADE FLOW. Impression dictated by: Melchor Mondragon M.D.11/12/2021 1:08 PM Dictation Location: [facility] Tech: Jaye Matos Transcribed By: STAN 11/12/21 1308 Dictated By: Melchor Mondragon MD 11/12/21 1308 Signed By: 11/12/21 1302 [facility] Vital Signs Date Time Vital Sign Value Performing Clinician Facility 06-29-2024 15:40-0500 Diastolic blood pressure 96 mm[Hg] Tita Hemmer PA Work Phone: [facility] 06-29-2024 15:40-0500 Systolic blood pressure 162 mm[Hg] Tita Hemmer PA Work Phone: [facility] 06-29-2024 15:01-0500 Body height 165.1 cm Tita Hemmer PA Work Phone: [facility] 06-29-2024 15:01-0500 Body mass index (BMI) [Ratio] 34.85 kg/m2 Tita Hemmer PA Work Phone: [facility] 06-29-2024 15:01-0500 Body temperature 98.2 [degF] Tita Hemmer PA Work Phone: [facility] 06-29-2024 15:01-0500 Body weight 94.98 kg Tita Hemmer PA Work Phone: [facility] 06-29-2024 15:01-0500 Heart rate 72 /min Tita Hemmer PA Work Phone: [facility] 06-29-2024 15:01-0500 Respiratory rate 16 /min Tita Hemmer PA Work Phone: [facility] 06-29-2024 15:01-0500 SaO2% (BldA) [Mass fraction] 97 % Tita Hemmer PA Work Phone: [facility] 05-16-2024 15:26-0500 Body height 165.1 cm Weston Borja MD Work Phone: [facility] 05-16-2024 15:26-0500 Body mass index (BMI) [Ratio] 35.11 kg/m2 Weston Borja MD Work Phone: [facility] 05-16-2024 15:26-0500 Body weight 95.71 kg Weston Borja MD Work Phone: [facility] 05-16-2024 15:26-0500 Diastolic blood pressure 78 mm[Hg] Weston Borja MD Work Phone: [facility] 05-16-2024 15:26-0500 Heart rate 74 /min Weston Borja MD Work Phone: [facility] 05-16-2024 15:26-0500 SaO2% (BldA) [Mass fraction] 97 % Weston Borja MD Work Phone: [facility] 05-16-2024 15:26-0500 Systolic blood pressure 130 mm[Hg] Weston Borja MD Work Phone: [facility] 03-14-2024 13:43-0400 Body height 165.1 cm Weston Borja MD Work Phone: [facility] 03-14-2024 13:43-0400 Body mass index (BMI) [Ratio] 34.28 kg/m2 Weston Borja MD Work Phone: [facility] 03-14-2024 13:43-0400 Body weight 93.44 kg Weston Borja MD Work Phone: [facility] 03-14-2024 13:43-0400 Diastolic blood pressure 84 mm[Hg] Weston Borja MD Work Phone: [facility] 03-14-2024 13:43-0400 Heart rate 86 /min Weston Borja MD Work Phone: [facility] 03-14-2024 13:43-0400 SaO2% (BldA) [Mass fraction] 99 % Weston Borja MD Work Phone: [facility] 03-14-2024 13:43-0400 Systolic blood pressure 134 mm[Hg] Weston Borja MD Work Phone: [facility] 12-08-2023 13:16-0400 Body height 170.18 cm [facility] 12-08-2023 13:16-0400 Body mass index (BMI) [Ratio] 31.3 kg/m2 [facility] 12-08-2023 13:16-0400 Body temperature 96.7 [degF] [facility] 12-08-2023 13:16-0400 Body weight 90.71 kg [facility] 12-08-2023 13:16-0400 Diastolic blood pressure 80 mm[Hg] [facility] 12-08-2023 13:16-0400 Heart rate 74 /min [facility] 12-08-2023 13:16-0400 SaO2% (BldA) [Mass fraction] 97 % [facility] 12-08-2023 13:16-0400 Systolic blood pressure 142 mm[Hg] [facility] 11-18-2022 15:35-0400 Blood Pressure Location [facility] 11-18-2022 15:35-0400 Diastolic blood pressure 90 mm[Hg] [facility] 11-18-2022 15:35-0400 Heart rate 76 /min [facility] 11-18-2022 15:35-0400 Respiratory rate 16 /min [facility] 11-18-2022 15:35-0400 Systolic blood pressure 128 mm[Hg] [facility] 10-01-2022 14:14-0400 Blood Pressure Location [facility] 10-01-2022 14:14-0400 Diastolic blood pressure 78 mm[Hg] [facility] 10-01-2022 14:14-0400 Heart rate 70 /min [facility] 10-01-2022 14:14-0400 Respiratory rate 16 /min [facility] 10-01-2022 14:14-0400 Systolic blood pressure 128 mm[Hg] [facility] 11-12-2021 14:00-0400 Body height 167.64 cm Judith Gibson Other [facility] 11-12-2021 14:00-0400 Body mass index (BMI) [Ratio] 30.66 kg/m2 Judith Gibson Other [facility] 11-12-2021 14:00-0400 Body temperature 98 [degF] Judith Gibson Other [facility] 11-12-2021 14:00-0400 Body weight 86.18 kg Judith Gibson Other [facility] 11-12-2021 14:00-0400 Diastolic blood pressure 80 mm[Hg] Judith Gibson Other [facility] 11-12-2021 14:00-0400 Respiratory rate 18 /min Judith Gibson Other [facility] 11-12-2021 14:00-0400 SaO2% (BldA) [Mass fraction] 98 % Judith Gibson Other [facility] 11-12-2021 14:00-0400 Systolic blood pressure 134 mm[Hg] Judith Gibson Other [facility] Other Encounters Encounter Date Encounter Type Care Provider Facility Start: 06-29-2024 End: 06-29-2024 Office outpatient visit 15 minutes Tita Westbrook PA Work Phone: [facility] Comment on above: Primary hypertension (CMS/HCC) (Primary Dx); Bilateral impacted cerumen; Nasal congestion; Epistaxis Start: 06-29-2024 End: 06-29-2024 ambulatory TITA WESTBROOK Not Available Start: 06-29-2024 End: 06-29-2024 Bamboo flowsheet Tita DERAS Work Phone: [facility] Start: 06-29-2024 End: 06-29-2024 Bamboo flowsheet Tita DERAS Work Phone: [facility] Start: 05-16-2024 End: 05-16-2024 Assay of hemosiderin, quant Weston Borja MD Work Phone: [facility] Start: 05-16-2024 End: 05-16-2024 Patient encounter procedure Weston Borja MD Work Phone: [facility] Comment on above: Routine general medi chula examination at health care facility (Primary Dx); ACP (advance care planning); 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, without long-term current use of insulin, unspecified laterality (CMS/HCC); Prostate cancer screening; Elevated cholesterol (CMS/HCC); Essential (primary) hypertension (CMS/HCC); Stenosis of right carotid artery; Coronary artery disease involving [place] coronary artery of [place] heart without angina pectoris (CMS/HCC) Start: 05-16-2024 End: 05-16-2024 ambulatory WESTON BORJA Not Available Start: 05-16-2024 End: 05-16-2024 Bamboo flowsheet Weston Borja MD Work Phone: [facility] Start: 05-16-2024 End: 05-16-2024 Bamboo flowsheet Weston Borja MD Work Phone: [facility] Start: 04-19-2024 End: 04-19-2024 ambulatory Sybil Penaink [facility] Comment on above: 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); Low back pain, unspecified back pain laterality, unspecified chronicity, unspecified whether sciatica present; Degeneration of intervertebral disc of lumbar region, unspecified whether pain present Start: 04-19-2024 End: 04-19-2024 Bamboo flowsheet Sybil Brink [facility] Start: 04-19-2024 End: 04-19-2024 Bamboo flowsheet Sybil Brink [facility] Start: 04-14-2024 End: 04-14-2024 ambulatory Sybil Penaink [facility] Comment on above: 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); Low back pain, unspecified back pain laterality, unspecified chronicity, unspecified whether sciatica present; Degeneration of intervertebral disc of lumbar region, unspecified whether pain present Start: 04-14-2024 End: 04-14-2024 Bamboo flowsheet Sybil Brink [facility] Start: 04-14-2024 End: 04-14-2024 Bamboo flowsheet Sybil Brink [facility] Start: 04-12-2024 End: 04-12-2024 ambulatory Sybil Brink [facility] Comment on above: 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); Low back pain, unspecified back pain laterality, unspecified chronicity, unspecified whether sciatica present; Degeneration of intervertebral disc of lumbar region, unspecified whether pain present Start: 04-12-2024 End: 04-12-2024 Bamboo flowsheet Sybil Brink [facility] Start: 04-12-2024 End: 04-12-2024 Bamboo flowsheet Sybil Brink [facility] Start: 04-07-2024 End: 04-07-2024 Bamboo flowsheet Sybil Brink [facility] Start: 04-07-2024 End: 04-07-2024 Bamboo flowsheet Sybil Brink [facility] Start: 04-07-2024 End: 04-07-2024 ambulatory Sybil Brink [facility] Comment on above: 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); Low back pain, unspecified back pain laterality, unspecified chronicity, unspecified whether sciatica present; Degeneration of intervertebral disc of lumbar region, unspecified whether pain present Start: 04-05-2024 End: 04-06-2024 ambulatory Sybil Brink [facility] Comment on above: 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); Low back pain, unspecified back pain laterality, unspecified chronicity, unspecified whether sciatica present; Degeneration of intervertebral disc of lumbar region, unspecified whether pain present Start: 04-05-2024 End: 04-05-2024 Bamboo flowsheet Sybil Garcia [facility] Start: 04-05-2024 End: 04-05-2024 Bamboo flowsheet Sybil Garcia [facility] Start: 03-31-2024 End: 03-31-2024 ambulatory Clarisa Siddiqui [facility] Comment on above: 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); Low back pain, unspecified back pain laterality, unspecified chronicity, unspecified whether sciatica present; Degeneration of intervertebral disc of lumbar region, unspecified whether pain present Start: 03-31-2024 End: 03-31-2024 Bamboo flowsheet Clarisa Siddiqui [facility] Start: 03-31-2024 End: 03-31-2024 Bamboo flowsheet Clarisa Siddiqui [facility] Start: 03-29-2024 End: 03-29-2024 ambulatory Alexis Ortiz PT Work Phone: [facility] Comment on above: 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); Low back pain, unspecified back pain laterality, unspecified chronicity, unspecified whether sciatica present; Degeneration of intervertebral disc of lumbar region, unspecified whether pain present Start: 03-29-2024 End: 03-29-2024 Bamboo flowsheet Alexis Ortiz PT Work Phone: [facility] Start: 03-29-2024 End: 03-29-2024 Bamboo flowsheet Alexis Ortiz PT Work Phone: [facility] Start: 03-23-2024 End: 03-24-2024 ambulatory Sybil Garcia [facility] Comment on above: 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); Low back pain, unspecified back pain laterality, unspecified chronicity, unspecified whether sciatica present; Degeneration of intervertebral disc of lumbar region, unspecified whether pain present Start: 03-23-2024 End: 03-23-2024 Bamboo flowsheet Sybil Garcia [facility] Start: 03-23-2024 End: 03-23-2024 Bamboo flowsheet Sybil Garcia [facility] Start: 03-15-2024 End: 03-15-2024 ambulatory Alexis Ortiz PT Work Phone: [facility] Comment on above: 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); Low back pain, unspecified back pain laterality, unspecified chronicity, unspecified whether sciatica present; Degeneration of intervertebral disc of lumbar region, unspecified whether pain present Start: 03-15-2024 End: 03-15-2024 Bamboo flowsheet Alexis Ortiz PT Work Phone: [facility] Start: 03-15-2024 End: 03-15-2024 Bamboo flowsheet Alexis Ortiz PT Work Phone: [facility] Start: 03-14-2024 End: 03-14-2024 Bamboo flowsheet Weston Borja MD Work Phone: [facility] Start: 03-14-2024 End: 03-14-2024 Bamboo flowsheet Weston Borja MD Work Phone: [facility] Start: 03-14-2024 End: 03-14-2024 Office outpatient visit 10 minutes Weston Borja MD Work Phone: [facility] Comment on above: Acute cystitis with hematuria (Primary Dx); Dysuria Start: 03-14-2024 End: 03-14-2024 ambulatory WESTON BORJA Not Available Start: 03-07-2024 End: 03-07-2024 Patient encounter procedure Weston Borja MD Work Phone: [facility] Comment on above: Dysuria Start: 03-07-2024 End: 03-07-2024 ambulatory TITA HEMWINDY Not Available Start: 03-03-2024 End: 03-03-2024 ambulatory Sybil Garcia [facility] Comment on above: 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); Low back pain, unspecified back pain laterality, unspecified chronicity, unspecified whether sciatica present Start: 03-03-2024 End: 03-03-2024 Bamboo flowsheet Sybil Penaink [facility] Start: 03-03-2024 End: 03-03-2024 Bamboo flowsheet Sybil Brink [facility] Start: 02-25-2024 End: 02-25-2024 Bamboo flowsheet Sybil Brink [facility] Start: 02-25-2024 End: 02-25-2024 Bamboo flowsheet Sybil Brink [facility] Start: 02-25-2024 End: 02-25-2024 ambulatory Sybil Penaink [facility] Comment on above: Degenerative disc di sease, lumbar (Primary Dx); Low back pain, unspecified back pain laterality, unspecified chronicity, unspecified whether sciatica present Start: 02-22-2024 End: 02-22-2024 Bamboo flowsheet Sybil Brink [facility] Start: 02-22-2024 End: 02-22-2024 Bamboo flowsheet Sybil Penaink [facility] Start: 02-22-2024 End: 02-22-2024 ambulatory Sybil Penaink [facility] Comment on above: Degenerative disc di sease, lumbar (Primary Dx); Low back pain, unspecified back pain laterality, unspecified chronicity, unspecified whether sciatica present Start: 02-16-2024 End: 02-16-2024 Bamboo flowsheet Alexis Ortiz PT Work Phone: [facility] Start: 02-16-2024 End: 02-16-2024 Bamboo flowsheet Alexis Ortiz PT Work Phone: [facility] Start: 02-16-2024 End: 02-16-2024 ambulatory Alexis Ortiz PT Work Phone: [facility] Comment on above: Degenerative disc di sease, lumbar; Low back pain, unspecified back pain laterality, unspecified chronicity, unspecified whether sciatica present Start: 12-10-2023 End: 12-10-2023 ambulatory WESTON Paxton JENNIFER Not Available Start: 12-08-2023 End: 12-08-2023 Patient encounter procedure [facility] Vascular Surgery Work Phone: Start: 11-26-2023 End: 11-26-2023 ambulatory WESTON BORJA Not Available Start: 10-29-2023 End: 10-29-2023 ambulatory BRAXTON ISABEL Not Available Start: 10-28-2023 End: 10-28-2023 ambulatory WESTON BORJA Not Available Start: 10-22-2023 End: 10-22-2023 ambulatory BRAXTON Corinne BROWN Not Available Start: 10-01-2023 End: 10-01-2023 ambulatory BRAXTON Corinne ISABEL Not Available Start: 09-21-2023 End: 09-21-2023 ambulatory TAMARA PALOMINO Not Available Start: 09-17-2023 End: 09-17-2023 ambulatory BRAXTON ISABEL Not Available Start: 08-13-2023 End: 08-13-2023 ambulatory WESTON BORJA Not Available Start: 2023 End: 2023 ambulatory TAMARA PALOMINO Not Available Start: 2023 Chart abstracting Tamara haro MD Work Phone: [facility] 210 Start: 01-20-2023 Rx Renewal Weston Borja Work Phone: [facility] 250 DO Work Phone: Start: 01-13-2023 End: 01-14-2023 ambulatory Dakota R JIMY Facility: [place] Start: 01-13-2023 End: 01-13-2023 Patient encounter procedure Dakota AHN General Surgery Nill/Said [place] Start: 12-26-2022 End: 12-27-2022 ambulatory Dakota R NILL Facility: [place] Start: 12-26-2022 End: 12-26-2022 Patient encounter procedure Dakota R NILL General Surgery Nill/Said [place] Start: 12-17-2022 End: 12-18-2022 ambulatory Dakota R NILL Facility: [place] Start: 12-17-2022 End: 12-17-2022 Patient encounter procedure Dakota R NILL General Surgery Nill/Said [place] Start: 12-10-2022 End: 12-11-2022 ambulatory Dakota R NILL Facility:[id number] Start: 11-18-2022 End: 11-19-2022 ambulatory Dakota R NILL Facility: [place] Start: 11-18-2022 End: 11-18-2022 Patient encounter procedure Dakota R NILL General Surgery Nill/Said [place] Start: 10-01-2022 End: 10-02-2022 ambulatory Dakota R NILL Facility: [place] Start: 10-01-2022 End: 10-01-2022 Patient encounter procedure Dakota R NILL General Surgery Nill/Said [place] Start: 09-26-2022 End: 09-27-[address] WESTON BORJA Facility:[facility] Start: 09-12-2022 ambulatory WESTON BORJA Facility :[facility] [place] Start: 09-01-2022 ambulatory Weston Borja II Facility:[id number] Start: 08-17-2022 End: 08-18-2022 ambulatory LEONARD ESPITIA Facility:[facility] Start: 08-02-2022 End: 08-03-[address] WESTON BORJA Facility:[facility] Start: 07-19-2022 End: 07-19-2022 ambulatory LEONARD ESPITIA Facility:[facility] Start: 07-18-2022 End: 07-18-[address] WESTON BORJA Facility:[facility] Start: 08-17-2022 Encounter for genera l adult medical examination without abnormal findings FRANKIE KAZ [facility] Start: 01-14-2022 End: 01-15-2022 ambulatory FRANKIE MCCURDY Facility:[facility] Start: 01-14-2022 End: 01-15-2022 Encounter for general adult medical examination without abnormal findings FRANKIE MCCURDY Facility: Start: 12-25-2021 End: 12-25-2021 ambulatory FRANKIE MCCURDY Facility: Start: 11-12-2021 End: 11-12-2021 ambulatory Judith Arthur Other [place] Other Start: 11-12-2021 Follow-up encounter Judith Restrepo PG Vascular Surgery Procedures Date Procedure Procedure Detail Performing Clinician Start: 06-29-2024 Removal impacted cer umen instrumentation unilat Tita DERAS Work Phone: Start: 05-16-2024 Hemoglobin glycosyla maude a1c Weston Borja MD Work Phone: Start: 03-07-2024 Urnls dip stick/tabl et rgnt non-auto w/o micrscp Weston Borja MD Work Phone: Start: 12-10-2022 Repair of left ingui nal hernia Dakota [facility]N Start: 04-19-2019 Rezum Dakota WALKER Circumcision [facility] Circumcision Weston Borja Work Phone: Introduction of cath eter into carotid artery Weston Borja Work Phone: Tonsillectomy Dakota [facility] Tonsillectomy and adenoidectomy Weston Borja Work Phone: NEGATED: Highlighted row has not occurred! Total colonoscopy Weston Borja Work Phone: Plan of Treatment Date Care Activity Detail Author Start: 05-26-2026 Screening for malign ant neoplasm of colon [facility] Start: 05-16-2025 Medicare Annual Wellness (AWV) Medicare Annual Wellness (AWV) [facility] Start: 05-16-2025 Pneumococcal Vaccine : 65+ Years (1 of 2 - PCV) Pneumococcal Vaccine: 65+ Years (1 of 2 - PCV) [facility] Comment on above: Postponed from 07/06 (Patient Refused) Start: 08-14-2024 Hemoglobin A1c measurement Diabetes: Hemoglobin A1C [facility] Start: 07-17-2024 Urine screening for protein Diabetes: Urine Protein Screening [facility] Start: 07-11-2024 Influenza vaccination Influenza Vacc ine (#1) [facility] Comment on above: Postponed from 01/30 (Patient Refused) Start: 06-29-2024 End: 06-29-2024 Patient encounter procedure 06/29/2024 3:00 PM EST Office Visit [facility] [address] [place] [id number] Tita Westbrook PA [address] [place] [address] Arrived [facility] Comment on above: Arrived Start: 05-16-2024 End: 05-16-2024 Patient encounter procedure [facility] Comment on above: Arrived Start: 05-16-2024 End: 05-16-2025 Comprehensive metabolic 2000 panel - Serum or Plasma Comprehensive metabolic panel Lab Routine 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, without long-term current use of insulin, unspecified laterality (CMS/HCC) Essential (primary) hypertension (CMS/HCC) Expected: 05/16/2024 (Approximate), Expires: 05/16/2025 [facility] Comment on above: Expected: 05/16/2024 (Approximate), Expires: 05/16/2025 Start: 05-16-2024 End: 05-16-2025 Lipid 1996 panel - Serum or Plasma Lipid panel Lab Routine 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, without long-term current use of insulin, unspecified laterality (CMS/HCC) Elevated cholesterol (CMS/HCC) Expected: 05/16/2024 (Approximate), Expires: 05/16/2025 [facility] Comment on above: Expected: 05/16/2024 (Approximate), Expires: 05/16/2025 Start: 05-16-2024 End: 05-16-2025 TSH W/REFLEX TO FT4 TSH W/REFLEX TO FT4 Lab Routine 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, without long-term current use of insulin, unspecified laterality ([facility]) Expected: 05/16/2024 (Approximate), Expires: 05/16/2025 [facility] Comment on above: Expected: 05/16/2024 (Approximate), Expires: 05/16/2025 Start: 04-22-2024 Medicare Annual Wellness (AWV) Medicare Annual Wellness (AWV) [facility] Start: 04-20-2024 End: 04-20-2024 Patient encounter procedure 04/20/2024 2:00 PM EST Office Visit [facility] [address] [place] [address] Joaquín Ghosh DO [address] [place] [address] [facility] Start: 04-19-2024 End: 04-19-2024 ambulatory [facility] Comment on above: Arrived Start: 04-14-2024 End: 04-14-2024 ambulatory 04/14/2024 2:30 PM EST Treatment [facility] [address] [place] [address] Sybil Garcia [facility]F [facility] Start: 04-12-2024 End: 04-12-2024 ambulatory 04/12/2024 3:30 PM EST Treatment [facility] [address] [place] [address] Sybil Garcia, CHEF [facility] Start: 04-07-2024 End: 04-07-2024 ambulatory [facility] Comment on above: Arrived Start: 04-06-2024 Glaucoma screening Diabetes: R etinopathy Screening [facility] Start: 04-05-2024 End: 04-05-2024 ambulatory 04/05/2024 3:30 PM EST Treatment [facility] [address] [place] [address] Sybil Garcia, NICK [facility] Start: 03-31-2024 End: 03-31-2024 ambulatory 03/31/2024 3:30 PM EDT Treatment [facility] [address] [place] [address] Clarisa Siddiqui, NICK [facility] Start: 03-29-2024 End: 03-29-2024 ambulatory 03/29/2024 2:30 PM EDT Treatment [facility] [address] [place] [address] Alexis Ortiz, PT [address] [place] [address] [facility] Start: 03-23-2024 End: 03-23-2024 ambulatory 03/23/2024 4:00 PM EDT Treatment [facility] [address] [place] [address] Sybil Garcia, NICK Arrived [facility] Comment on above: Arrived Start: 03-17-2024 End: 03-17-2024 ambulatory 03/17/2024 2:30 PM EDT Treatment [facility] [address] [place] [address] Sybil Garcia, CHEF UND[facility] Start: 03-15-2024 End: 03-15-2024 ambulatory 03/15/2024 2:30 PM EDT Treatment [facility] [address] [place] [address] Alexis Ortiz, PT [address] [place] [address] [facility] Start: 03-14-2024 End: 03-14-2024 Patient encounter procedure 03/14/2024 1:45 PM EDT Office Visit [facility] [address] [place] [address] Weston Borja MD [address] [place] [address] Arrived [facility] Comment on above: Arrived Start: 03-10-2024 End: 03-10-2024 ambulatory 03/10/2024 2:30 PM EDT Treatment [facility] [address] [place] [address] Sybil Garcia [facility]F [facility] Start: 03-08-2024 End: 03-08-2024 ambulatory [facility] Start: 03-03-2024 End: 03-03-2024 ambulatory 03/03/2024 2:30 PM EDT Treatment [facility] [address] [place] [address] Sybil Garcia [facility]F [facility] Start: 03-01-2024 End: 03-01-2024 ambulatory 03/01/2024 2:30 PM EDT Treatment [facility] [address] [place] [address] Alexis Ortiz, PT [address] [place] [address] [facility] Start: 02-25-2024 End: 02-25-2024 ambulatory 02/25/2024 1:30 PM EDT Treatment [facility] [address] [place] [address] Sybil Garcia [facility]F [facility] Start: 02-22-2024 End: 02-22-2024 ambulatory 02/22/2024 2:00 PM EDT Treatment [facility] [address] [place] [address] Sybil Garcia [facility]F [facility] Start: 01-31-2024 Influenza vaccination Influenza Vacc ine (#1) [facility] Start: 01-28-2024 Hemoglobin A1c measurement Diabetes: Hemoglobin A1C [facility] Start: 06-30-2024 Influenza vaccination Influenza Vacc ine (#1) [facility] Comment on above: Postponed from 01/30 (Patient Refused) Start: 10-28-2023 End: 10-28-2023 Patient encounter procedure 10/28/2023 2:15 PM EDT Office Visit [facility] [address] [facility] [address] [place] [id number] Weston Borja MD [address] [facility] [address] [place] [address] [facility] Start: 09-29-2023 Hemoglobin A1c measurement Diabetes: Hemoglobin A1C [facility] Start: 2023 End: 2023 Patient encounter procedure 2023 3:20 PM EST Office Visit [facility] [address] [facility] [address] [place] [address] Tamara Palomino MD [address] [address] [facility] Start: 06-03-2023 FUV, Provider: Cosmo Diaz, Status: Pen, Time: 2:00 PM FUV, Provider: Cosmo Diaz, Status: Pen, Time: 2:00 PM [facility] 250 DO Work Phone: Start: 1967 Urine screening for protein Diabetes: Urine Protein Screening [facility] Start: 1954 Pneumococcal Vaccine : 65+ Years (1 - PCV) Pneumococcal Vaccine: 65+ Years (1 - PCV) [facility] Start: 1954 Pneumococcal Vaccine : 65+ Years (1 of 2 - PCV) Pneumococcal Vaccine: 65+ Years (1 of 2 - PCV) [facility] Start: 1948 Screening for malign ant neoplasm of colon [facility] CBC W Auto Different ial panel - Blood CBC and differential Lab Routine Coronary artery disease involving [place] coronary artery of [place] heart without angina pectoris (CMS/HCC) Ordered: 05/16/2024 [facility] Work Phone: Comment on above: Ordered: 05/16/2024 Prostate specific Ag [Mass/volume] in Serum or Plasma PSA Lab Routine Prostate cancer screening Ordered: 05/16/2024 [facility] Comment on above: Ordered: 05/16/2024 .doppler Carotid arteries - bilateral [facility] Immunizations Immunization Date Immunization Notes Care Provider Eric de leon 03-12-2021 SARS-CoV-2 (COVID-19) mRNA BNT-162b2 vax Dakota NILL [facility] [place] 08-21-2020 SARS-CoV-2 (COVID-19) mRNA BNT-162b2 vax [facility] N[facility] [place] 07-30-2020 SARS-CoV-2 (COVID-19) mRNA BNT-162b2 vax Dakota NILL [facility] [place] NEGATED: Highlighted row has not occurred! 7 pneumococcal polysaccharide vaccine, 23 valent Patient Objection Judith Gibson Other [facility] Other NEGATED: Highlighted row has not occurred! 7 influenza, seasonal, injectable Patient Objection Judith Gibson Other [facility] Other Payers Date Payer Category Payer Medicare (Managed Care) [facility] [id number] 2009 Medicare [id number] 1959 Medicare [id number] 2.16.840.1.522924.19 1959 Medicare [id number] 1959 Medicare [id number] 1959 Medicare [id number] 1959 Unknown [id number] 1948 Unknown [id number] 2.16.840.1.574329.3.579.2. 356 1948 Unknown [id number] 2.16.840.1.922987.3.579.2. 593 1948 Unknown [id number] 2.16.840.1.706034.3.579.2. 593 1948 Unknown [id number] 2.16.840.1.223605.3.579.2. 593 1948 Unknown [id number] 2.16.840.1.616614.3.579.2. 593 1948 Unknown [id number] 2.16.840.1.324104.3.579.2. 593 1948 Unknown [id number] 2.16.840.1.904907.3.579.2. 593 1948 Unknown [id number] 2.16.840.1.129363.3.579.2. 593 1948 Unknown [id number] 2.16.840.1.100797.3.579.2. 727 1948 Unknown [id number] 2.16.840.1.863228.3.579.2. 727 1948 Unknown [id number] 2.16.840.1.860513.3.579.2. 727 1948 Unknown [id number] 2.16.840.1.750092.3.579.2. 727 1948 Unknown [id number] 2.16.840.1.437024.3.579.2. 727 1948 Unknown [id number] 2.16.840.1.041140.3.579.2. 72 1948 Unknown [id number] 2.16.840.1.425816.3.579.2. 1948 Unknown [id number] 2.16.840.1.444009.3.579.2. 1948 Unknown [id number] 2.16.840.1.518925.3.579.2. 1258 1948 Unknown [id number] 2.16.840.1.209236.3.579.2. 1258 1948 Unknown [id number] 2.16840.1.663647.3.579.2. 1258 1948 Unknown [id number] 2.16840.1.949158.3.579.2. 1258 1948 Unknown [id number] 2.16840.1.173339.3.579.2. 1258 1948 Unknown [id number] 2.16840.1.418591.3.579.2. 1258 1948 Unknown [id number] 2.16840.1.532956.3.579.2. 1258 1948 Unknown [id number] 2.16840.1.568092.3.579.2. 1258 1948 Unknown [id number] 2.16840.1.754326.3.579.2. 1258 1948 Unknown [id number] 2.16.840.1.439479.3.579.2. 1258 1948 Unknown [id number] 2.16.840.1.070654.3.579.2. 1258 1948 Unknown [id number] 2.16.840.1.995641.3.579.2. 1258 1948 Unknown [id number] 2.16.840.1.774496.3.579.2. 1259 1948 Unknown [id number] 2.16.840.1.565256.3.579.2. 1258 1948 Unknown [id number] 2.16.840.1.527424.3.579.2. 1258 1948 Unknown [id number] 2.16.840.1.710102.3.579.2. 1258 1948 Unknown [id number] 2.16.840.1.940072.3.579.2. 1258 1948 Unknown [id number] 2.16840.1.489739.3.579.2. 1258 1948 Unknown [id number] 2.16.840.1.164425.3.579.2. 1258 1948 Unknown [id number] 2.16840.1.339584.3.579.2. 1258 1948 Unknown [id number] 2.16840.1.507292.3.579.2. 1258 1948 Unknown [id number] 2.16840.1.756318.3.579.2. 1258 1948 Unknown [id number] 2.16.840.1.574216.3.579.2. 1258 1948 Unknown [id number] 2.840.1.846665.3.579.2. 1258 1948 Unknown [id number] 2.16840.1.058824.3.579.2. 1258 1948 Unknown [id number] 2.16840.1.227908.3.579.2. 1258 1948 Unknown [id number] 2.16840.1.250417.3.579.2. 1259 Self-pay Self Pay [id number] Unknown Social History Date Type Detail Facility Unknown if ever smoked [facility] Other Start: 07-01-2023 End: 06-29-2024 Sex Assigned At Jonathan Santana [facility] Start: 10-01-2022 End: 01-14-2023 Tobacco smoking status Never smoked tobacco (finding) [facility] [place] Tobacco smoking status Never [facility] [place] Start: 07-01-2023 End: 06-29-2024 Social alcohol use Social alcohol use -Located Within [facility] 250 DO Work Phone: Start: 01-14-2023 Tobacco use and exposure Smokeless tobacco non-user [facility] Start: 07-01-2023 End: 06-29-2024 Alcohol intake Ex-drinker (finding) [facility] Start: 03-28-2023 Alcohol Comment caffeine: yes [facility] Start: 1950 Sex Assigned At [facility] Start: 02-09-2023 Gender identity Identifies as male gender (finding) [facility] Functional Status Date Assessment Result Facility 11-18-2022 Functional Status N/A [facility] 10-01-2022 Functional Status N/A [facility] Clinical Notes 11-12-2021 to 06-29-2024 BRAEDEN Negron - 06/29/2024 3:00 PM Rocky Borja MD - 05/16/2024 3:30 PM [facility] Garcia CHEF UNDER - 04/14/2024 2:30 PM Fartun Garcia PTA - 04/12/2024 2:30 PM EST Note Date & Type Note Facility 06-29-2024 History of Present illness Narrative Associated Order(s): Ear Cerumen Removal Images from the original note were not included. HPI URI Additional comments: Admits about a week ago he started having some nasal congestion and when he blows his nose he is getting greyish/bloody mucous. Would like for you to look at his nasal passages. Symptoms were a little worse yesterday. Last edited by BRAEDEN Negron on 06/29/2024 3:43 PM. Subjective Patient ID: Frankie De Anda is a 73 y.o. male who presents for ear irrigation. Frankie is present today for ear irrigation. Admits bilateral ears feel full. Bilateral ears are filled with cerumen. He used Debrox sometime ago but not recently. Drinks three bottles of water a day, also drinks lemonade and tea. Current Outpatient Medications on File Prior to Visit Medication Sig Dispense Refill carvedilol (Coreg) 12.5 MG tablet TAKE 1 TABLET TWICE DAILY 180 tablet 3 fluticasone (Flonase) 50 MCG/ACT nasal spray SPRAY 2 SPRAYS INTO EACH NOSTRIL EVERY DAY 16 mL 1 glimepiride (Amaryl) 2 MG tablet TAKE 1 TABLET EVERY DAY 90 tablet 3 rosuvastatin (Crestor) 5 MG tablet TAKE 1 TABLET AT BEDTIME 90 tablet 3 tamsulosin (Flomax) 0.4 MG 24 hr capsule Take 1 capsule (0.4 mg) by mouth Daily 30 capsule 11 No current facility-administered medications on file prior to visit. I have reviewed and reconciled the history and medication list with the patient today. Allergies Allergen Reactions Ciprofloxacin Other Increased neuropathy Penicillin V Other Reaction(s): Unknown Penicillins Other Reaction(s): Weakness - general Social History Tobacco Use Smoking status: Never Smokeless tobacco: Never Vaping Use Vaping status: Never Used Substance Use Topics Alcohol use: Not Currently Comment: caffeine: yes Drug use: Never Family History Problem Relation Name Age of Onset Heart disease Mother Hyperlipidemia Mother Hypertension Mother Heart failure Father Heart disease Father Melanoma Sister Past Medical History: Diagnosis Date Acute recurrent maxillary sinusitis CAD (coronary artery disease) (CMS/HCC) Cataract Diabetes (CMS/HCC) enlarged prostate prevention GERD (gastroesophageal reflux disease) Heart attack (CMS/HCC) 2005 no stents or surgery needed High cholesterol (CMS/HCC) Hyperlipidemia (CMS/HCC) Hypertension (CMS/HCC) Nasal mass Neuropathy of foot, unspecified laterality Past Surgical History: Procedure Laterality Date CIRCUMCISION 2014 HERNIA REPAIR Left 12/10/2022 Inguinal with Mesh OTHER SURGICAL HISTORY 2017 carotid stenosis TONSILLECTOMY Visit Vitals BP (!) 162/96 (BP Location: Left arm) Pulse 72 Temp 98.2 F Resp 16 Ht 5' 5 Wt 209 lb 6.4 oz SpO2 97% BMI 34.85 kg/m Smoking Status Never BSA 2.09 m Review of Systems Constitutional: Negative for chills, fatigue and fever. HENT: Positive for congestion and hearing loss. Respiratory: Negative for cough, shortness of breath and wheezing. Cardiovascular: Negative for chest pain, palpitations and leg swelling. Gastrointestinal: Negative for abdominal pain, constipation, diarrhea, nausea and vomiting. Skin: Negative for rash. Objective Physical Exam Constitutional: General: He is not in acute distress. Appearance: Normal appearance. HENT: Head: Normocephalic and atraumatic. Right Ear: There is impacted cerumen. Left Ear: There is impacted cerumen. Nose: Congestion present. Right Sinus: No maxillary sinus tenderness or frontal sinus tenderness. Left Sinus: No maxillary sinus tenderness or frontal sinus tenderness. Comments: Voice is nasal Mouth/Throat: Mouth: Mucous membranes are moist. Pharynx: Posterior oropharyngeal erythema (Minimal) present. Eyes: General: No scleral icterus. Cardiovascular: Rate and Rhythm: Normal rate and regular rhythm. Pulmonary: Effort: Pulmonary effort is normal. Breath sounds: No wheezing. Musculoskeletal: General: No swelling. Skin: General: Skin is warm and dry. Neurological: General: No focal deficit present. Mental Status: He is alert and oriented to person, place, and time. Psychiatric: Mood and Affect: Mood normal. Behavior: Behavior normal. Ear Cerumen Removal Date/Time: 06/29/2024 3:39 PM Performed by: BRAEDEN Negron Authorized by: BRAEDEN Negron Consent: Consent obtained: Verbal Consent given by: Patient Risks, benefits, and alternatives were discussed: yes Risks discussed: Bleeding, infection, pain, TM perforation, incomplete removal and dizziness Alternatives discussed: No treatment, alternative treatment and referral Procedure details: Location: L ear and R ear Procedure type: curette Procedure type comment: With warm water/hydrogen peroxide irrigation Procedure outcomes: cerumen removed Post-procedure details: Inspection: Ear canal clear Hearing quality: Improved Procedure completion: Tolerated well, no immediate complications Assessment/Plan Diagnoses and all orders for this visit: Primary hypertension (CMS/HCC) BP remained elevated on recheck. He will check his BP at home later today and contact office if remains elevated. It had been well controlled prior to today's visit. Bilateral impacted cerumen Bilateral ears irrigated with good results. Pt tolerated it well. Nasal congestion Encouraged pt to use cool mist vaporizer or humidifier, if does not have either, can boil a pot of warm water on the stove and stand near it to breathe in the steam. Avoid decongestants for now due to elevated BP. No sinus pressure or other symptoms at this time, so will hold off on an antibiotic. Epistaxis Hold Flonase for now due to potentially causing the nasal mucosa irritation. Other orders - Ear Cerumen Removal Follow up in about 3 months (around 09/27/2024) for Hypertension. documented in this encounter [facility] 05-16-2024 History of Present illness Narrative Images from the original note were not included. Subjective : Chief Complaint: Frankie De Anda is an 73 y.o. male here for an annual wellness visit. I have reviewed and reconciled the history and medication list with the patient today. Current Outpatient Medications Medication Sig Dispense Refill carvedilol (Coreg) 12.5 MG tablet TAKE 1 TABLET TWICE DAILY 180 tablet 3 fluticasone (Flonase) 50 MCG/ACT nasal spray SPRAY 2 SPRAYS INTO EACH NOSTRIL EVERY DAY 16 mL 1 glimepiride (Amaryl) 2 MG tablet TAKE 1 TABLET EVERY DAY 90 tablet 3 rosuvastatin (Crestor) 5 MG tablet TAKE 1 TABLET AT BEDTIME 90 tablet 3 tamsulosin (Flomax) 0.4 MG 24 hr capsule Take 1 capsule (0.4 mg) by mouth Daily 30 capsule 11 No current facility-administered medications for this visit. Review of Systems List of current healthcare providers: Patient Care Team: Weston Borja MD as PCP - General (Internal Medicine) Medicare Annual Visit Over the past 2 weeks, how often have you been bothered by any of the following problems? Little interest or pleasure in doing things: Not at all Feeling down, depressed, or hopeless: Not at all Patient Health Questionnaire-2 Score: 0 Shukla Fall Risk History of Falling, Immediate or Within 3 Months: No Secondary Diagnosis: No Ambulatory Aid: Walks without aid/bedrest/nurse assist Health Risk Assessment Form Do you need help eating, bathing, using the toilet, dressing, or getting around your home?: No Can you prepare your own meals?: Yes Can you do your own housework without help?: Yes Can you shop for groceries or clothes without help?: Yes Do you exercise for about 20 minutes 3 or more days a week?: Yes How confident are you that you can control and manage most of your health problems?: Very confident Can you mange your money, credit cards and accounts, pay bills and taxes?: Yes Cognitive Screening Three Word Registration: Apple, Watch, Lani Clock Drawing: Partial Clock - 1 Three Word Recall: All 3 words correct - 3 Total Score (0-5 Points): 4 Pain Assessment Pain Score: 4 Advance Care Planning Do you have a living will?: No Do you have a medical power of attorney general?: No Objective : BP 130/78 Pulse 74 Ht 5' 5 Wt 211 lb SpO2 97% BMI 35.11 kg/m No results found. Physical Exam Constitutional: Appearance: Normal appearance. HENT: Head: Normocephalic and atraumatic. Cardiovascular: Rate and Rhythm: Normal rate and regular rhythm. Pulses: Normal pulses. Pulmonary: Effort: Pulmonary effort is normal. Breath sounds: Normal breath sounds. Musculoskeletal: Right lower leg: No edema. Left lower leg: No edema. Neurological: Mental Status: He is alert. Psychiatric: Mood and Affect: Mood normal. Thought Content: Thought content normal. Judgment: Judgment normal. Office Visit on 05/16/2024 Component Date Value Ref Range Status Hemoglobin A1C 05/16/2024 6.3 Final Assessment/Plan : The following health maintenance schedule was reviewed with the patient and provided in printed form in the after visit summary: Health Maintenance Topic Date Due Diabetes: Hemoglobin A1C 01/28/2024 Diabetes: Retinopathy Screening 04/06/2024 Medicare Annual Wellness (AWV) 04/22/2024 Influenza Vaccine (1) 07/11/2024 (Originally 01/31/2024) Pneumococcal Vaccine: 65+ Years (1 of 2 - PCV) 05/16/2025 (Originally 1956) Diabetes: Urine Protein Screening 07/17/2024 Colorectal Cancer Screening 05/26/2026 Advance Care Planning Assessment/Plan Diagnoses and all orders for this visit: Routine general medical examination at health care facility ACP (advance care planning) 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, without long-term current use of insulin, unspecified laterality ([facility]) - POCT Glycated hemoglobin, total - Comprehensive metabolic panel; Future - Lipid panel; Future - TSH W/REFLEX TO FT4; Future Prostate cancer screening - PSA Elevated cholesterol (CMS/HCC) - Lipid panel; Future Essential (primary) hypertension (CMS/HCC) - Comprehensive metabolic panel; Future Stenosis of right carotid artery Coronary artery disease involving [place] coronary artery of [place] heart without angina pectoris (CMS/HCC) - CBC and differential Orders Placed This Encounter Procedures POCT Glycated hemoglobin, total Electronically signed by Weston Borja MD on May 16, 2024 documented in this encounter [facility] 04-14-2024 History of Present illness Narrative Physical Therapy Treatment Visit Patient Name: Frankie MARTINEZ Today's Date: 04/14/2024 Encounter Diagnoses Name Primary? Degeneration of intervertebral disc of lumbar region with discogenic back pain Yes Low back pain, unspecified back pain laterality, unspecified chronicity, unspecified whether sciatica present Degeneration of intervertebral disc of lumbar region, unspecified whether pain present Visit number: 12 (7 of 8 ) Timed Code Treatment: 53 minutes Total Treatment Time: 53 minutes Time In: 1430 Time Out: 1525 History: Pt. Presents to PT with c/c of central low back and right hip pain. Pain on/off for several years. Had PT at [facility] which helped. Had increased pain while walking/standing for long periods of time. Unable to walk throughout grocery store due to increased back/hip pain. Pt. Goal is to improve his quality of life. No injections or MRI. X-ray of lumbar spine moderate to severe multilevel DDD with spondylolthesis. Precautions: universal Subjective: Reports slight reduction in back pain with daily tasks. No adverse effect to session. C/C is knee soreness. Pt reports improvement with walking through stores. Is able to do some light yard work without soreness/pain. Pain: 4/10 into lower back / R hip Objective: PT Evaluation (02/16/24) Lumbar ROM: flexion ankle, right sidebending decreased 25% with increase pain. Rotation normal Right hip ROM: flexion 100 deg Palpation: TTP L5 and right lateral thigh over greater trochanter Strength: core 4-/5, lateral hip 4/5 Flexibility: moderate lumbar paraspinal and hamstring muscle tightness, moderate + right QL muscle tightness. Treatment: Manual Therapy: (15 minutes) Delivered manual ther to right hip PROM, hamstring, piriformis stretching, lumbar PA mobs, MFR to lumbar to improve mobility and decrease pain Therapeutic Exercise: (23 minutes) Instructed to improve hip and lumbar flexibility. Core/ lumbar/ Hip strengthening exercises per grid Therapeutic Activity: Exercises to improve dynamic activities, functional tasks, functional mobility to return to prior activity level Neuromuscular re-education: Balance Training, Muscle Facilitation, Dynamic Stability, Core Stabilization, and Blood Flow Restriction Training (BFRT) Modalities:(15 minutes) Post session prone: IFC w/ MHP for pain/relaxation Assessment: Pt has participated in 12 PT session with start of POC on 02/16/24 for low back pain. Pleased with progression reports less back pain through out the day with daily tasks. Mild verbal cuing for exercise recall and correction. Continued with manual ther. Deferred IFC post session, (MHP unavailable). Assess response and progress as able. One visit left on approvals. Pt would continue to benefit from therapy to reduce back pain in an effort to improve daily activities. Outcome Measure: Rehab Diagnosis: lumbar DDD, right hip OA Short Term Goal: To be met in 2 weeks Goal 1: Pt to be instructed in home exercise program. Echocardiograph Tech Goals: To be met in 10 weeks Goal 1: Pt to report independence and compliance with home program. Goal 2: Pt. Will report of 2/10 while standing/walking for long periods of time to help improve his quality of life. Goal 3: Pt. Will demonstrate normal lumbar paraspinal and hamstring muscle flexibility to help decrease pain and improve his functional mobility. Goal 4: Pt. Will demonstrate 5/5 core/hip strength to allow him to walk/stand for long periods of time to help improve his functional mobility. Goal 5: Pt. Will score 20% or less on back index to help improve his functional mobility. Pt will benefit from skilled PT for 2x/week from 02/16/24 to 04/26/24 to address the above impairments. I hereby deem this POC medically necessary. Please sign below. Date: documented in this encounter [facility] 04-12-2024 History of Present illness Narrative Physical Therapy Treatment Visit Patient Name: Frankie MARTINEZ Today's Date: 04/12/2024 Encounter Diagnoses Name Primary? Degeneration of intervertebral disc of lumbar region with discogenic back pain Yes Low back pain, unspecified back pain laterality, unspecified chronicity, unspecified whether sciatica present Degeneration of intervertebral disc of lumbar region, unspecified whether pain present Visit number: 11 (6 of 8 ) Timed Code Treatment: 53 minutes Total Treatment Time: 53 minutes Time In: 1430 Time Out: 1525 History: Pt. Presents to PT with c/c of central low back and right hip pain. Pain on/off for several years. Had PT at [facility] which helped. Had increased pain while walking/standing for long periods of time. Unable to walk throughout grocery store due to increased back/hip pain. Pt. Goal is to improve his quality of life. No injections or MRI. X-ray of lumbar spine moderate to severe multilevel DDD with spondylolthesis. Precautions: universal Subjective: Reports slight reduction in back pain with daily tasks. No adverse effect to session. C/C is knee soreness. Pt reports improvement with walking through stores. Is able to do some light yard work without soreness/pain. Pain: 4/10 into lower back / R hip Objective: PT Evaluation (02/16/24) Lumbar ROM: flexion ankle, right sidebending decreased 25% with increase pain. Rotation normal Right hip ROM: flexion 100 deg Palpation: TTP L5 and right lateral thigh over greater trochanter Strength: core 4-/5, lateral hip 4/5 Flexibility: moderate lumbar paraspinal and hamstring muscle tightness, moderate + right QL muscle tightness. Treatment: Manual Therapy: (15 minutes) Delivered manual ther to right hip PROM, hamstring, piriformis stretching, lumbar PA mobs, MFR to lumbar to improve mobility and decrease pain Therapeutic Exercise: (38 minutes) Instructed to improve hip and lumbar flexibility. Core/ lumbar/ Hip strengthening exercises per grid Therapeutic Activity: Exercises to improve dynamic activities, functional tasks, functional mobility to return to prior activity level Neuromuscular re-education: Balance Training, Muscle Facilitation, Dynamic Stability, Core Stabilization, and Blood Flow Restriction Training (BFRT) Modalities:(0 minutes) Post session prone: IFC for pain/relaxation Assessment: Pt has participated in 11 PT session with start of POC on 02/16/24 for low back pain. Pleased with progression reports less back pain through out the day with daily tasks. Mild verbal cuing for exercise recall and correction. Continued with manual ther. Anded exercises to improve core and hip strength. HEP updated to a few of the low level exercises to improve hip strength. Deferred IFC post session, (MHP unavailable). Assess response and progress as able. Outcome Measure: Rehab Diagnosis: lumbar DDD, right hip OA Short Term Goal: To be met in 2 weeks Goal 1: Pt to be instructed in home exercise program. Echocardiograph Tech Goals: To be met in 10 weeks Goal 1: Pt to report independence and compliance with home program. Goal 2: Pt. Will report of 2/10 while standing/walking for long periods of time to help improve his quality of life. Goal 3: Pt. Will demonstrate normal lumbar paraspinal and hamstring muscle flexibility to help decrease pain and improve his functional mobility. Goal 4: Pt. Will demonstrate 5/5 core/hip strength to allow him to walk/stand for long periods of time to help improve his functional mobility. Goal 5: Pt. Will score 20% or less on back index to help improve his functional mobility. Pt will benefit from skilled PT for 2x/week from 02/16/24 to 04/26/24 to address the above impairments. I hereby deem this POC medically necessary. Please sign below. Date: Cosigned by Alexis Ortiz, PT at 04/13/2024 1:08 PM EST documented in this encounter [facility] 03-29-2024 History of Present illness Narrative Physical Therapy Treatment Visit Patient Name: Frankei MARTINEZ Today's Date: 03/30/2024 Encounter Diagnoses Name Primary? Degeneration of intervertebral disc of lumbar region with discogenic back pain Yes Low back pain, unspecified back pain laterality, unspecified chronicity, unspecified whether sciatica present Degeneration of intervertebral disc of lumbar region, unspecified whether pain present Visit number: 07/09 (6 total) Timed Code Treatment Minutes: 41 minutes Total Treatment Time: 56 minutes Time In: 1430 Time Out: 1526 History: Pt. Presents to PT with c/c of central low back and right hip pain. Pain on/off for several years. Had PT at [facility] which helped. Had increased pain while walking/standing for long periods of time. Unable to walk throughout grocery store due to increased back/hip pain. Pt. Goal is to improve his quality of life. No injections or MRI. X-ray of lumbar spine moderate to severe multilevel DDD with spondylolthesis. Precautions: universal Subjective: Pt. Reports slight reduction in back pain with daily tasks. Feels better for couple hours after PT treatment. Manual techniques really help to decrease back pain. Pain: 4/10 into lower back/ R hip Objective: PT Evaluation (02/16/24) Lumbar ROM: flexion ankle, right sidebending decreased 25% with increase pain. Rotation normal Right hip ROM: flexion 100 deg Palpation: TTP L5 and right lateral thigh over greater trochanter Strength: core 4-/5, lateral hip 4/5 Flexibility: moderate lumbar paraspinal and hamstring muscle tightness, moderate + right QL muscle tightness. Treatment: Education: HEP education with demonstration, Educated on Eval Findings and POC Manual Therapy: (18 minutes) right hip PROM, hamstring, piriformis, QL stretching, lumbar PA mobs, MFR to lumbar. Passive ROM, Joint mobilization, Soft Tissue Mobilization, Myofascial Release, Muscle Energy Technique, Neural Mobilization, Myofascial Cupping, Dry Needling, IASTM, and Scar mobilization Therapeutic Exercise: (23 minutes) Instructed to improve hip and lumbar flexibility. Hip strengthening exercises instructed. exercises in grid; Strength, Endurance, Flexibility, ROM, HEP, Neural Mobilization, Power, and Core Stability Therapeutic Activity: Exercises to improve dynamic activities, functional tasks, functional mobility to return to prior activity level Neuromuscular re-education: Balance Training, Muscle Facilitation, Dynamic Stability, Core Stabilization, and Blood Flow Restriction Training (BFRT) Modalities:(15 minutes) prone: IFC with MHP; Heat, Ice, Electrical Stimulation, Ultrasound, Cervical Mechanical Traction, Lumbar Mechanical Traction, Iontophoresis, and Fluidotherapy Assessment: Pt. Has participated in 7 PT session with start of POC on 02/16/24 for low back pain. Pt. Will benefit from skilled PT services. Pt. Was challenged with strengthening exercises today. Demonstrates improve hamstring muscle flexibility. Slow progress toward PT goals. Outcome Measure: Rehab Diagnosis: lumbar DDD, right hip OA Short Term Goal: To be met in 2 weeks Goal 1: Pt to be instructed in home exercise program. Echocardiograph Tech Goals: To be met in 10 weeks Goal 1: Pt to report independence and compliance with home program. Goal 2: Pt. Will report of 2/10 while standing/walking for long periods of time to help improve his quality of life. Goal 3: Pt. Will demonstrate normal lumbar paraspinal and hamstring muscle flexibility to help decrease pain and improve his functional mobility. Goal 4: Pt. Will demonstrate 5/5 core/hip strength to allow him to walk/stand for long periods of time to help improve his functional mobility. Goal 5: Pt. Will score 20% or less on back index to help improve his functional mobility. Pt will benefit from skilled PT for 2x/week from 02/16/24 to 04/26/24 to address the above impairments. I hereby deem this POC medically necessary. Please sign below. Date: documented in this encounter [facility] 03-15-2024 History of Present illness Narrative Physical Therapy Treatment Visit Patient Name: Frankie MARTINEZ Today's Date: 03/15/2024 No diagnosis found. Visit number: 5 Timed Code Treatment Minutes: 45 minutes Total Treatment Time: 60 minutes Time In: 1430 Time Out: 1530 History: Pt. Presents to PT with c/c of central low back and right hip pain. Pain on/off for several years. Had PT at [facility] which helped. Had increased pain while walking/standing for long periods of time. Unable to walk throughout grocery store due to increased back/hip pain. Pt. Goal is to improve his quality of life. No injections or MRI. X-ray of lumbar spine moderate to severe multilevel DDD with spondylolthesis. Precautions: universal Subjective: Pt. Reports back was feeling better but after UTI he has noticed a regression in his progress. Pain: 07/11 Objective: PT Evaluation (02/16/24) Lumbar ROM: flexion ankle, right sidebending decreased 25% with increase pain. Rotation normal Right hip ROM: flexion 100 deg Palpation: TTP L5 and right lateral thigh over greater trochanter Strength: core 4-/5, lateral hip 4/5 Flexibility: moderate lumbar paraspinal and hamstring muscle tightness, moderate + right QL muscle tightness. Treatment: Education: HEP education with demonstration, Educated on Eval Findings and POC Manual Therapy: (15 minutes) right hip PROM, hamstring, piriformis, QL stretching, lumbar PA mobs, MFR to lumbar. Passive ROM, Joint mobilization, Soft Tissue Mobilization, Myofascial Release, Muscle Energy Technique, Neural Mobilization, Myofascial Cupping, Dry Needling, IASTM, and Scar mobilization Therapeutic Exercise: (25 minutes) Instructed to improve hip and lumbar flexibility. Hip strengthening exercises instructed. exercises in grid; Strength, Endurance, Flexibility, ROM, HEP, Neural Mobilization, Power, and Core Stability Therapeutic Activity: Exercises to improve dynamic activities, functional tasks, functional mobility to return to prior activity level Neuromuscular re-education: Balance Training, Muscle Facilitation, Dynamic Stability, Core Stabilization, and Blood Flow Restriction Training (BFRT) Modalities:(15 minutes) prone: IFC with MHP; Heat, Ice, Electrical Stimulation, Ultrasound, Cervical Mechanical Traction, Lumbar Mechanical Traction, Iontophoresis, and Fluidotherapy Assessment: Pt. Has participated in 5 PT session with start of POC on 02/16/24 for low back pain. Pt. Will benefit from skilled PT services. PT treatment to focus on improving lumbar flexibility and core/hip strengthening. Added more standing hip exercises today and pt. Tolerated well. Pt. Wilson new exercises really helped. Outcome Measure: Rehab Diagnosis: lumbar DDD, right hip OA Short Term Goal: To be met in 2 weeks Goal 1: Pt to be instructed in home exercise program. Echocardiograph Tech Goals: To be met in 10 weeks Goal 1: Pt to report independence and compliance with home program. Goal 2: Pt. Will report of 2/10 while standing/walking for long periods of time to help improve his quality of life. Goal 3: Pt. Will demonstrate normal lumbar paraspinal and hamstring muscle flexibility to help decrease pain and improve his functional mobility. Goal 4: Pt. Will demonstrate 5/5 core/hip strength to allow him to walk/stand for long periods of time to help improve his functional mobility. Goal 5: Pt. Will score 20% or less on back index to help improve his functional mobility. Pt will benefit from skilled PT for 2x/week from 02/16/24 to 04/26/24 to address the above impairments. I hereby deem this POC medically necessary. Please sign below. Date: documented in this encounter [facility] 03-14-2024 History of Present illness Narrative Images from the original note were not included. Subjective Patient ID: Frankie De Anda is a 73 y.o. male who presents for UTI. Pt did not fill the macrobid sent to pharmacy states his symptoms started improving and did not feel he needed antibiotic Denies: fever,dysuria,urgency UTI Current Outpatient Medications on File Prior to Visit Medication Sig Dispense Refill carvedilol (Coreg) 12.5 MG tablet Take 1 tablet (12.5 mg) by mouth in the morning and 1 tablet (12.5 mg) in the evening. Take with meals. 200 tablet 3 fluticasone (Flonase) 50 MCG/ACT nasal spray USE 2 SPRAYS IN EACH NOSTRIL EVERY DAY 16 mL 1 glimepiride (Amaryl) 2 MG tablet Take 1 tablet (2 mg) by mouth in the morning. Take before meals. 30 tablet 11 rosuvastatin (Crestor) 5 MG tablet TAKE 1 TABLET BY MOUTH EVERY DAY FOR 90 DAYS 90 tablet 3 tamsulosin (Flomax) 0.4 MG 24 hr capsule Take 1 capsule (0.4 mg) by mouth Daily 30 capsule 11 furosemide (Lasix) 20 MG tablet Take 1 tablet (20 mg) by mouth Daily for 7 days 7 tablet 0 pregabalin (Lyrica) 75 MG capsule Take 1 capsule (75 mg) by mouth in the morning and 1 capsule (75 mg) in the evening and 1 capsule (75 mg) before bedtime. 90 capsule 2 [DISCONTINUED] nitrofurantoin, macrocrystal-monohydrate, (Macrobid) 100 MG capsule Take 1 capsule (100 mg) by mouth in the morning and 1 capsule (100 mg) before bedtime. Do all this for 5 days. 10 capsule 0 No current facility-administered medications on file prior to visit. I have reviewed and reconciled the history and medication list with the patient today. Allergies Allergen Reactions Ciprofloxacin Other Increased neuropathy Penicillin V Other Reaction(s): Unknown Penicillins Other Reaction(s): Weakness - general Social History Tobacco Use Smoking status: Never Smokeless tobacco: Never Substance Use Topics Alcohol use: Not Currently Comment: caffeine: yes Drug use: Never Family History Problem Relation Name Age of Onset Heart disease Mother Hyperlipidemia Mother Hypertension Mother Heart failure Father Heart disease Father Melanoma Sister Past Medical History: Diagnosis Date Acute recurrent maxillary sinusitis CAD (coronary artery disease) (CMS/HCC) Cataract Diabetes (CMS/HCC) enlarged prostate prevention GERD (gastroesophageal reflux disease) Heart attack (CMS/HCC) 2005 no stents or surgery needed High cholesterol (CMS/HCC) Hyperlipidemia (CMS/HCC) Hypertension (CMS/HCC) Nasal mass Neuropathy of foot, unspecified laterality Past Surgical History: Procedure Laterality Date CIRCUMCISION 2013 HERNIA REPAIR Left 12/10/2022 Inguinal with Mesh OTHER SURGICAL HISTORY 2017 carotid stenosis TONSILLECTOMY Visit Vitals BP 134/84 Pulse 86 Ht 5' 5 Wt 206 lb SpO2 99% BMI 34.28 kg/m Smoking Status Never BSA 2.07 m Review of Systems Objective Physical Exam Constitutional: Appearance: Normal appearance. Cardiovascular: Rate and Rhythm: Normal rate and regular rhythm. Pulmonary: Effort: Pulmonary effort is normal. Neurological: Mental Status: He is alert. Psychiatric: Mood and Affect: Mood normal. Thought Content: Thought content normal. Judgment: Judgment normal. Assessment/Plan Diagnoses and all orders for this visit: Acute cystitis with hematuria - Improved. Dysuria No follow-ups on file. documented in this encounter [facility] 03-07-2024 History of Present illness Narrative Pt dropped off urine to be checked d/t he feel he may have a UTI. documented in this encounter [facility] 12-26-2022 Hospital Discharge instructions Follow Up Care 12/26/2022 14:17:19 With:Dakota AHN MD, SUR Address: [address] [place] [address]- When: only if needed With:Dakota AHN MD, SUR Address: [address] [place] [phone]- When: only if needed With:Dakota AHN MD, MIGUEL A Address: [address] [place] [phone]- When: only if needed General [facility] 10-01-2022 Note Chief Complaint consultation for left inguinal hernia [facility] Staff 72 year old male presents on consultation from Dr. Borja for left inguinal hernia. Reports this has been present many years. There has been no significant increase in size or discomfort. Reports intermittent inguinal fullness with minimal intermittent discomfort. No use of pain medication. Denies nausea or vomiting. Bowels moving well. Last imaging completed in 2018. History of Present Illness 72 yo male with h/o CAD, htn, hypercholesterolemia, DMII, bph, GERD, neuropathy, here for reevaluation of Left inguinal hernia; patient seen in 2018, had reducible left inguinal hernia, noted to contain sigmoid colon on abd/pelvic ct scan in 2018, asymptomatic, patient elected to watch hernia at that time; currently denies symptoms, occasional soreness if pressure to area; unsure if hernia is reducible; no N/V; denies bowel changes; no previous abd operations; on baby asa daily, no NSAIDs; no tobacco use. Review of Systems PHQ Score Initial Depression Screen Score: 0 ROS - Provider Constitutional: no fever, no sweats, no weight loss. Eyes: no glasses, no blurred vision, no visual loss. ENMT: no dentures, no hoarseness, no swallowing difficulties, no hearing loss, no ear infection(s), no nose bleeds. Cardiovascular: normal blood pressure, no chest pain, regular heartbeat, no heart murmur. Respiratory: no shortness of breath, no cough, no asthma, no wheezing. Gastrointestinal: no nausea, no vomiting, no diarrhea, no constipation, no blood in stool, no change in bowel habits, no abdominal pain, no hepatitis. Genitourinary: no kidney stones, no urine infection, no dysuria. Musculoskeletal: no pain, no weakness. Skin: no changing moles, no rash, no skin lumps. Neurologic: no seizures, no epilepsy, no headache. Psychiatric: no emotional or psychiatric problem. Heme/Lymph: no bleeding problems, no anemia, no blood clots, no transfusions. Allergy/Immunologic: no swollen lymph nodes/glands, no IV drug abuse. Other: Additional ROS info: Except as noted in the above Review of Systems and in the History of Present Illness, all other systems have been reviewed and are negative or noncontributory. Physical Exam Vitals & Measurements HR: 70(Peripheral) RR: 16 BP: 128/78 HT: 65 in HT: 165.1 cm WT: 90.8 kg WT: 199.76 lb BMI: 33.31 HEENT: normal conjunctiva, sclera clear, no scleral icterus, EOM intact, PERRLA, oral mucosa moist without lesions. Neck: trachea midline, no mass, symmetric, no thyromegaly or nodules, no adenopathy Respiratory: lungs CTA, respirations non labored. Cardiovascular: regular rate and rhythm, no murmur, no pedal edema or varicosities. Gastrointestinal: obese, soft, non distended, no tenderness, no masses, large left irreducible left inguinal hernia extending into scrotum, mild edema, no skin changes; diastasis recti no, no hepatosplenomegaly; normal bs Lymphatic: no cervical adenopathy, no supraclavicular adenopathy no inguinal adenopathy. Musculoskeletal: normal gait, digits and nails without infection, nodes, cyanosis, clubbing. Skin: no rashes, no lesions, no ulcers, no subcutaneous nodules, induration. Psychiatric/Neuro: oriented to time, place, person, judgement normal, affect appropriate for age, insight intact, no focal deficits. Tests: x-rays reviewed, review of old records completed, Discussed surgical options, risks, and possible complications with patient. Assessment/Plan 1. Irreducible left inguinal hernia (K40.30: Unilateral inguinal hernia, with obstruction, without gangrene, not specified as recurrent) recommend left inguinal herniorrhaphy with mesh insertion, informed consent obtained. patient will call to schedule procedure. Ancef 2 gms IV prior to OR SCDs Follow-up No qualifying data available Problem List/Past Medical History Ongoing BMI 33.0-33.9,adult BPH with urinary obstruction CAD (coronary artery disease) Cardiac murmur Diabetes Elevated cholesterol Elevated PSA GERD (gastroesophageal reflux disease) Gross hematuria Hesitancy Hypertension Incomplete bladder emptying Inferior myocardial infarction Irreducible left inguinal hernia Neuropathy Nocturia Urethral stricture Urinary urgency Weak urine stream Historical Occlusion and stenosis of multiple and bilateral cerebral arteries Procedure/Surgical History Rezum (04/19/2019), Circumcision, Tonsillectomy. Medications aspirin 81 mg oral tablet, 81 mg= 1 tab(s), Oral, Daily Coreg 12.5 mg Tab, 12.5 mg= 1 tab(s), Oral, BID Crestor 5 mg Tab, 5 mg= 1 tab(s), Oral, Once a day (at bedtime) Detrol 2 mg Tab, 2 mg= 1 tab(s), Oral, BID, PRN Flonase 0.05 mg/inh [place], 2 spray(s), Nasal, Daily hydrochlorothiazide-losartan 12.5 mg-50 mg Tab, 1 tab(s), Oral, Daily metformin 500 mg Tab, 500 mg= 1 tab(s), Oral, BID Allergies penicillins (Weakness - general) Social History Alcohol - Low Risk, 07/11/2019 Substance Abuse - Denies S (more content not included)... [facility] Comment on above: Result Comment: Elec tronically Signed By: JIMY BOWEN, Dakota Hoang\leah\Date and Time Signed: 10/01/22 15:06 EDT 11-12-2021 Evaluation note Encounter Date Diagnosis Assessment Notes Oct, Carotid stenosis, bilateral (ICD-10 - I65.23) We reviewed today's carotid duplex studies which are normal. He remains asymptomatic of his carotid occlusive disease and on good medical therapy with use of aspirin and statin medications daily. We will continue to follow him along on a routine basis and see him back in a year with surveillance duplex studies. He knows to call us in the meantime with any issues. [facility] Other Evaluation + Plan note No data available for this section General Surgery [place] Evaluation + Plan note Future Appointments Appointment Date:12/26/2022 02:00:00 PM Scheduled Provider:Dakota AHN MD Location:[facility] Appointment Type:GS Post Op 15 General Surgery [place] Evaluation + Plan note Future Appointments Appointment Date:01/13/2023 04:00:00 PM Scheduled Provider:Dakota AHN MD Location:[facility] Appointment Type: Post Op 15 General Surgery [place] Evaluation note* Diagnosis Onset Date Resolution Status Carotid stenosis, right [facility] Work Phone: evaluation note* Diagnosis Degeneration of intervertebral disc of lumbar region with discogenic back pain- Primary Low back pain, unspecified back pain laterality, unspecified chronicity, unspecified whether sciatica present [facility] Diagnosis Dysuria [facility]* Diagnosis Acute cystitis with hematuria- Primary Dysuria [facility]* Diagnosis Degeneration of intervertebral disc of lumbar region, unspecified whether pain present Low back pain, unspecified back pain laterality, unspecified chronicity, unspecified whether sciatica present [facility]* Diagnosis Degeneration of intervertebral disc of lumbar region, unspecified whether pain present Low back pain, unspecified back pain laterality, unspecified chronicity, unspecified whether sciatica present [facility]* Diagnosis Degeneration of intervertebral disc of lumbar region, unspecified whether pain present Low back pain, unspecified back pain laterality, unspecified chronicity, unspecified whether sciatica present [facility]* Diagnosis Degeneration of intervertebral disc of lumbar region, unspecified whether pain present Low back pain, unspecified back pain laterality, unspecified chronicity, unspecified whether sciatica present [facility]* Diagnosis Degeneration of intervertebral disc of lumbar region, unspecified whether pain present Low back pain, unspecified back pain laterality, unspecified chronicity, unspecified whether sciatica present [facility]* Diagnosis Degeneration of intervertebral disc of lumbar region, unspecified whether pain present Low back pain, unspecified back pain laterality, unspecified chronicity, unspecified whether sciatica present [facility]* Diagnosis Degeneration of intervertebral disc of lumbar region, unspecified whether pain present Low back pain, unspecified back pain laterality, unspecified chronicity, unspecified whether sciatica present [facility]* Diagnosis Degenerative disc disease, lumbar Low back pain, unspecified back pain laterality, unspecified chronicity, unspecified whether sciatica present [facility]* Diagnosis Routine general medical examination at health care facility- Primary Routine general medical examination at a health care facility ACP (advance care planning) Other specified counseling 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, without long-term current use of insulin, unspecified laterality ([facility]) Prostate cancer screening Special screening for malignant neoplasm of prostate Elevated cholesterol ([facility]) Pure hypercholesterolemia Essential (primary) hypertension ([facility]) Unspecified essential hypertension Stenosis of right carotid artery Occlusion and stenosis of carotid artery without mention of cerebral infarction Coronary artery disease involving [place] coronary artery of [place] heart without angina pectoris ([facility]) [facility]* Diagnosis Degenerative disc disease, lumbar- Primary Low back pain, unspecified back pain laterality, unspecified chronicity, unspecified whether sciatica present [facility]* Diagnosis Degenerative disc disease, lumbar- Primary Low back pain, unspecified back pain laterality, unspecified chronicity, unspecified whether sciatica present [facility]* Diagnosis Primary hypertension ([facility])- Primary Unspecified essential hypertension Bilateral impacted cerumen Impacted cerumen Nasal congestion Other diseases of nasal cavity and sinuses Epistaxis [facility] this [facility] N[facility]ative - Reported* Type Description Date Medical History HTN-supposed to take Bystolic, but reports he does not usually take it Medical History Hypercholestermia Medical History Inguinal hernia Medical History DM with some neuropahty Medical History CAD with ND in 2005- did not have significant amount of cardiac injury at that time and has not had any recurrent symptoms of angina. He continues to follow with Dr. Lamb who treats him medically Medical History CVOD Surgical History Circumcision 2012 Surgical History Lt ankle fx 2017 Surgical History carotid endarterectomy right si de 2017 Hospitalization History Heart attack 2005 [facility] Other Hospital Discharge instructions No data available for this section General Surgery [facility] Progress note No data available for this section [facility] Reason for visit Narrative* Rehabilitation - Outpatient (Routine) - Authorized Specialty Diagnoses / Procedures Referred By Layton t Referred To Contact Physical Therapy Diagnoses Degenerative disc disease, lumbar Low back pain, unspecified back pain laterality, unspecified chronicity, unspecified whether sciatica present Procedures VA OFFICE/OUTPATIENT [facility] 60 MINUTES Weston Borja MD [address] [facility] [address] [place] [address] Phone: tel: fax: [facility] [address] [facility] [address] [place] [address] Phone: tel: fax: Referral ID Status Reason Start Date Expiration Date Visits Requested Visits Authorized [id number] Authorized Specialty Services Required 02/16/2024 03/19/2024 9 9 [facility] Narrative* Rehabilitation - Outpatient (Routine) - Authorized Specialty Diagnoses / Procedures Referred By Contac t Referred To Contact Physical Therapy Diagnoses Degenerative disc disease, lumbar Low back pain, unspecified back pain laterality, unspecified chronicity, unspecified whether sciatica present Procedures VA THER PX 1/> AREAS EACH 15 MIN NEUROMUSC REEDUCA PHYS/OCC THERAPY SS VA MANUAL THERAPY TQS 1/> REGIONS EACH 15 MINUTES VA THERAPEUTIC PX 1/> AREAS EACH 15 MIN EXERCISES Weston Borja MD [address] [facility] [address] [place] [address] Phone: tel: fax: [facility] [address] [facility] [address] [place] [address] Phone: tel: fax: Referral ID Status Reason Start Date Expiration Date Visits Requested Visits Authorized [id number] Authorized Specialty Services Required 04/22/2024 8 8 [facility] Narrative* Rehabilitation - Outpatient (Routine) - Closed Specialty Diagnoses / Procedures Referred By Layton t Referred To Contact Physical Therapy Diagnoses Degenerative disc disease, lumbar Low back pain, unspecified back pain laterality, unspecified chronicity, unspecified whether sciatica present Procedures VA THER PX 1/> AREAS EACH 15 MIN NEUROMUSC REEDUCA PHYS/OCC THERAPY SS VA MANUAL THERAPY TQS 1/> REGIONS EACH 15 MINUTES VA THERAPEUTIC PX 1/> AREAS EACH 15 MIN EXERCISES Weston Borja MD [address] [facility] [address] [place] [address] Phone: tel: fax: [facility] [address] [facility] [address] [place] [address] Phone: tel: fax: Referral ID Status Reason Start Date Expiration Date V isits Requested Visits Authorized [id number] Closed Specialty Services Required 03/22/2024 04/22/2024 8 8 [facility] Summary Purpose Family History No Family History Records FoundUnknown Family Member Name Dates Details Family history of cardiac di sorder: Mother, Father(V17.49, Z82.49) Status:Active Family history of malignant neoplasm of skin: Sister(V16.8, Z80.8) Status:Active Relationship Condition Age at Onset Recorded Date/T ananth father Heart disease Unknown Unknown mother Heart disease Unknown sister Malignant neoplasm Unknown Advance Directives No Advanced Directives Records Found Advance Directive Response Recorded Date/ Time Advance Directives No December 07 1:56pm Chief Complaint and Reason for Visit Chief Complaint 2 YR F/U; CARTID DUP NASIR 1230P Reason for Visit Carotid stenosis, ri ght Additional Source Comments (unrecognized sect ion and content) No Status Records FoundNo Status Records FoundNo Status Records FoundNo Status Records FoundNo Status Records FoundNo Status Records FoundNo Status Records Found INFORMATION SOURCE (unrecogn ized section and content) DATE CREATED AUTHOR 11/25/2021 [facility] DATE CREATED AUTHOR AUTHOR'S ORGANIZ ATION 09/04/2022 [facility] DATE CREATED AUTHOR AUTHOR'S ORGANIZ ATION 09/04/2022 [facility] DATE CREATED AUTHOR AUTHOR'S ORGANIZ ATION 10/03/2022 [facility] DATE CREATED AUTHOR AUTHOR'S ORGANIZ ATION 01/14/2023 [facility] DATE CREATED AUTHOR AUTHOR'S ORGANIZ ATION 07/01/2024 [facility] EPIC DATE CREATED AUTHOR AUTHOR'S ORGANIZ ATION 07/03/2024 [facility] REASON FOR VISIT (unrecogniz ed section and content) Specialty Diagnoses / Procedures Referred By Contac t Referred To Contact Physical Therapy Diagnoses Degenerative disc disease, lumbar Low back pain, unspecified back pain laterality, unspecified chronicity, unspecified whether sciatica present Procedures VA OFFICE/OUTPATIENT NEW [facility] 60 MINUTES Weston Borja MD [address] [facility] [address] [place] [address] [facility] [address] [facility] [address] [place] [address] Referral ID Status Reason Start Date Expiration Date Visits Requested Visits Authorized [id number] Authorized Specialty Services Required 02/16/2024 03/19/2024 9 9 Reason Comments UTI Referral ID Status Reason Start Date Expiration Date Visits Requested Visits Authorized [id number] Authorized Specialty Services Required 02/18/2024 03/19/2024 8 8 Reason Comments Medicare Annual Wellness Visit Subsequen t Reason Comments URI Admits about a week ago he started having some nasal congestion and when he blows his nose he is getting greyish/bloody mucous. Would like for you to look at his nasal passages. Symptoms were a little worse yesterday. 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 Specialty Start Date End Date Weston Borja MD [address] [place] [address] PCP - [employer] 06/01/20 Weston Borja MD [address] [place] [address] PCP - General Internal Medicine 10/07/22ThursdayMercedez LPN [address] [place] [address] Licensed Practical Nurse Family Medicine 07/02/23 Team Status: Active Member Role Status Dates Weston Borja II MD Primary Care Provider Active Team Status: Inactive Member Role Status Dates Melchor Mondragon MD Attending Provider Active S tart: December 08, 2023 End: December 08, 2023 Weston Borja II MD Primary Care Provider Active Start: December 08, 2023 End: December 08, 2023 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 Relationship Specialty Start Date End Date Weston Borja MD [address] [place] [address] PCP - General Internal Medicine 10/07/22 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 Relationship Specialty Start Date End Date Weston Borja MD [address] [place] [address] PCP - General Internal Medicine 10/07/22 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 Relationship Specialty Start Date End Date Weston Borja MD [address] [place] [address] PCP - General Internal Medicine 10/07/22 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 Relationship Specialty Start Date End Date Weston Borja MD [address] [place] [address] PCP - General Internal Medicine 10/07/22 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 Relationship Specialty Start Date End Date Weston Borja MD [address] [place] [address] PCP - General Internal Medicine 10/07/22 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 Relationship Specialty Start Date End Date Weston Borja MD [address] [place] [address] PCP - General Internal Medicine 10/07/22 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 Relationship Specialty Start Date End Date Weston Borja MD [address] [place] [address] PCP - General Internal Medicine 10/07/22 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 Relationship Specialty Start Date End Date Weston Borja MD [address] [place] [address] PCP - General Internal Medicine 10/07/22 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 Relationship Specialty Start Date End Date Weston Borja MD [address] [place] [address] PCP - General Internal Medicine 10/07/22 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 Relationship Specialty Start Date End Date Weston Borja MD [address] [place] [address] PCP - General Internal Medicine 10/07/22 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 Relationship Specialty Start Date End Date Weston Borja MD [address] [place] [address] PCP - General Internal Medicine 10/07/22 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 Relationship Specialty Start Date End Date Weston Borja MD [address] [place] [address] PCP - General Internal Medicine 10/07/22 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 Relationship Specialty Start Date End Date Weston Borja MD [address] [place] [address] PCP - General Internal Medicine 10/07/22 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 Relationship Specialty Start Date End Date Weston Borja MD [address] [place] [address] PCP - General Internal Medicine 10/07/22 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 Relationship Specialty Start Date End Date Weston Borja MD [address] [place] [address] PCP - General Internal Medicine 10/07/22 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 Relationship Specialty Start Date End Date Weston Borja MD [address] [place] [address] PCP - General Internal Medicine 10/07/22 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 Relationship Specialty Start Date End Date Weston Borja MD [address] [place] [address] PCP - General Internal Medicine 10/07/22 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 Relationship Specialty Start Date End Date Weston Borja MD [address] [place] [address] PCP - General Internal Medicine 10/07/22 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 Relationship Specialty Start Date End Date Weston Borja MD [address] [place] [address] PCP - General Internal Medicine 10/07/22 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 Relationship Specialty Start Date End Date Weston Borja MD [address] [address] PCP - General Internal Medicine 10/07/22 Goals (unrecognized section and content) Goals may be documented in a n alternate section FOR RECORDS PERTAINING TO PATIENTS WHO ARE OR HAVE BEEN ENROLLED IN A CHEMICAL DEPENDENCY/SUBSTANCEABUSE PROGRAM, SOME INFORMATION MAY BE OMITTED. This clinical summary was aggregated from multiple sources. Caution should be exercised in using it in the provision of clinical care. This summary normalizes information from multiple sources, and as a consequence, information in this document may materially change the coding, format and clinical context of patient data. In addition, data may be omitted in some cases. CLINICAL DECISIONS SHOULD BE BASED ON THE PRIMARY CLINICAL RECORDS. [facility] provides no warranty or guarantee of the accuracy or completeness of information in this document.
--- NOTE | 2024-07-17 22:50 | ECG_ITS ---
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
[2024-07-17 23:31] LABS: Basophils Absolute Auto 0.1 10^3/uL (0.0-0.1); Basophils Percent Auto 0.6 % (0.2-2.0); Eosinophils Absolute Auto 0.6 10^3/uL (0.0-0.7); Eosinophils Percent Auto 7.6 % (0.9-7.0); Hematocrit 43.4 % (42.0-54.0); Hemoglobin 14.2 g/dL (14.0-18.0); Immature Granulocytes Abs Auto 0.04 10^3/uL (0.00-0.03); Immature Granulocytes Pct Auto 0.5 % (0.0-0.5); Lymphocytes Absolute Auto 1.9 10^3/uL (1.2-3.8); Lymphocytes Percent Auto 24.6 % (20.5-60.0); Mean Corpuscular HGB Conc 32.7 g/dL (29.9-35.2); Mean Corpuscular Hemoglobin 27.8 pg (25.9-34.0); Mean Corpuscular Volume 84.9 fL (80.0-94.0); Mean Platelet Volume 9.2 fL (9.5-13.5); Monocytes Absolute Auto 0.5 10^3/uL (0.3-0.8); Monocytes Percent Auto 6.4 % (1.7-12.0); Neutrophils Absolute Auto 4.7 10^3/uL (1.4-6.5); Neutrophils Percent Auto 60.3 % (43.0-75.0); Platelet Count 188 10^3/uL (150-450); Red Blood Count 5.11 10^6/uL (4.70-6.10); Red Cell Distribution Width 14.2 % (11.0-15.0); White Blood Count 7.8 10^3/uL (4.0-11.0)
[2024-07-17 23:51] LABS: Alanine Aminotransferase 27 U/L (16-63); Albumin Globulin Ratio 0.9; Albumin Level 3.5 g/dL (3.4-5.0); Alkaline Phosphatase 84 U/L (46-116); Aspartate Amino Transferase 20 U/L (15-37); BUN Creatinine Ratio 16.8; Bilirubin Total 0.6 mg/dL (0.2-1.0); Calcium 8.8 mg/dL (8.5-10.1); Carbon Dioxide 28.6 mmol/L (21.0-32.0); Chloride 101 mmol/L (98-107); Estimated GFR (African America >60 (>=60 mL/min/1.73m^2); Estimated GFR (Non-African Ame 53 (>=60 mL/min/1.73m^2); Globulin 3.9 g/dL; Glucose 209 mg/dL (74-106); Potassium 4.6 mmol/L (3.5-5.1); Sodium 136 mmol/L (136-145); Total Protein 7.4 g/dL (6.4-8.2); Troponin I High Sensitivity 6.1 pg/mL (4.0-76.1)
[2024-07-17] MEDS: 0.9 % SODIUM CHLORIDE 1,000 ML 100 ML IV (23:51)
[2024-07-17 23:52] LABS: Lactate/Lactic Acid 2.1 mmol/L (0.4-2.0)
[2024-07-18] VITALS (9 sets, daily range): BP systolic 162–173; BP diastolic 68–87; PULSE 68–106; O2SAT 97–99
--- NOTE | 2024-07-18 00:13 | ED.GENADUL1 ---
HPI HPI - General Adult General Chief complaint: Nausea/Vomiting/Diarrhea Stated complaint: HYPERTENSION Time Seen by Provider: 07/17/24 22:56 Source: patient Mode of arrival: Wheelchair Limitations: no limitations History of Present Illness HPI narrative: This 74-year-old male with a history of hypertension presents for evaluation of elevated blood pressure as well as some heartburn. The patient states that he made his spaghetti sauce with meatballs today and brought some over to his family. After getting home he had a piece of store-bought wise pie. He then had some nausea but did not vomit. He has had 2 bowel movement since that time. He states he took his blood pressure because he felt kind of out of sorts and his blood pressure was in the 180s over 90s. He states this is very high for him. His blood pressure is typically in the 130s to 140s but he did recently have a doctor's visit where his blood pressure was in the 160s. He took his blood pressure medication tonight and 30 minutes later took his blood pressure again and it had gone up higher. He denies any jyoti chest pain or shortness of breath. No abdominal pain or back pain. He has no dizziness or diaphoresis. His nausea is much better. He does have neuropathy which is greatest in the right knee which has been worse over the course of the past several days. He denies any recent injury. He has no focal weakness numbness or tingling. He has no headache or neck pain. His nieces son brought him to the emergency department. Related Data Home Medications ?Medication ?Instructions ?Recorded ?Confirmed aspirin 81 mg tablet,delayed 81 mg PO DAILY 12/01/22 01/26/23 release (Adult Aspirin Regimen) carvedilol 12.5 mg tablet 12.5 mg PO Q12H 12/01/22 07/17/24 fluticasone propionate 50 1 spray intranasal Q12H 12/01/22 01/26/23 mcg/actuation nasal spray,suspension losartan 50 mg-hydrochlorothiazide 1 tab PO QDAY 12/01/22 01/26/23 12.5 mg tablet metformin 1,000 mg tablet 500 mg PO BID 12/01/22 07/17/24 rosuvastatin 5 mg tablet 5 mg PO QDAY 12/01/22 01/26/23 tolterodine 4 mg capsule,extended 4 mg PO Q24H 12/01/22 12/10/22 release 24 hr Previous Rx's ?Medication ?Instructions ?Recorded hydrocodone 5 mg-acetaminophen 325 1 tab PO Q6H PRN Pain Scale 4-6 12/11/22 mg tablet #12 tabs Allergies Allergy/AdvReac Type Severity Reaction Status Date / Time Penicillins Allergy muscle Verified 07/17/24 22:55 numbness Opioid HPI Opioid Management Most Recent Opioid Data: Last Pain Scale 4 12/11/22 09:00 12/11/22 Review of Systems ROS Status of ROS 10 or more systems reviewed and unremarkable except as noted in history and below [facility] Medical History (Updated 07/18/24 @ 02:28 by Clarisa Webster MD) Incarcerated left inguinal hernia ?K40.30 - Unilateral inguinal hernia, with obstruction, without gangrene, not specified as recurrent (ICD-10) GERD (gastroesophageal reflux disease) ?K21.9 - Gastro-esophageal reflux disease without esophagitis (ICD-10) Elevated PSA ?R97.20 - Elevated prostate specific antigen [PSA] (ICD-10) BPH (benign prostatic hyperplasia) ?N40.0 - Benign prostatic hyperplasia without lower urinary tract symptoms (ICD-10) Neuropathy ?G62.9 - Polyneuropathy, unspecified (ICD-10) Arthritis ?M19.90 - Unspecified osteoarthritis, unspecified site (ICD-10) COVID-19 ?U07.1 - COVID-19 (ICD-10) Hypertension ?I10 - Essential (primary) hypertension (ICD-10) Myocardial infarction ?I21.9 - Acute myocardial infarction, unspecified (ICD-10) Heart murmur ?R01.1 - Cardiac murmur, unspecified (ICD-10) High cholesterol ?E78.00 - Pure hypercholesterolemia, unspecified (ICD-10) Diabetes ?E11.9 - Type 2 diabetes mellitus without complications (ICD-10) Hernia ?K46.9 - Unspecified abdominal hernia without obstruction or gangrene (ICD-10) Surgical History (Updated 12/10/22 @ 08:10 by Gisselle Nagel) History of circumcision ?Z98.890 - Other specified postprocedural states (ICD-10) S/P carotid endarterectomy ?Z98.890 - Other specified postprocedural states (ICD-10) History of tonsillectomy ?Z90.89 - Acquired absence of other organs (ICD-10) Family History (Updated 12/01/22 @ 11:31 by Jayda Martinez NP) Other Family history of heart disease Family history of hypertension Family history of myocardial infarction Family history of skin cancer Social History (Updated 12/01/22 @ 11:22 by Jayda Martinez NP) Within the past year, how often did you have a drink containing alcohol: monthly or less Smoking status: Never smoker Non-prescribed substance use: denies use Highest level of school completed/degree received: high school graduate Little interest or pleasure in doing things: not at all Feeling down, depressed, or hopeless: not at all Exam Narrative Exam Narrative: Vital signs and Nursing Notes reviewed: Patient is afebrile with a normal pulse, blood pressure is elevated at 201/81, he is not hypoxic with pulse ox of 97% on room air General: Awake, alert, oriented, no acute distress, lying comfortably on the stretcher HEENT: Normocephalic atraumatic, mucous membranes are moist and pink, eyes are clear, normal conjunctiva, vision is grossly intact, posterior pharynx is normal in appearance Neck: Supple, no jvd Chest: Lungs are clear to auscultation with good air entry, there is no wheezing rhonchi or rales appreciated no accessory muscle use, patient is speaking in complete sentences-no chest wall tenderness to palpation CVS: Regular rate and rhythm S1-S2, no murmurs rubs or gallops, pulses are brisk and equal bilaterally ABD: Soft, nondistended, nontender, no rebound guarding or rigidity, bowel sounds are normal, no pulsatile masses appreciated Extremities: Moving all extremities, no reproducible tenderness, non pitting edema of both lower legs, negative Homans' sign, pulses are brisk and equal bilaterally- no diabetic foot ulcers noted, feet are warm and sensate Skin: Normal in appearance without rash,pallor, petechiae or purpura Neuro: No focal deficits Constitutional Vital Signs, click to edit/add: Last Vital Signs Temp 98.2 F 07/17/24 22:56 Pulse 75 07/18/24 01:10 Resp 25 H 07/18/24 01:10 BP 162/68 H 07/18/24 01:00 Pulse Ox 98 07/18/24 01:10 O2 Del Method Room Air 07/17/24 22:56 Course Vital Signs Vital signs: Vital Signs Pulse Oximetry 98 07/17/24 22:54 Temperature 98.2 F 07/17/24 22:56 Pulse Rate 75 07/18/24 01:10 Respiratory Rate 25 H 07/18/24 01:10 Blood Pressure 162/68 H 07/18/24 01:00 Pulse Oximetry 98 07/18/24 01:10 Oxygen Delivery Method Room Air 07/17/24 22:56 Medical Decision Making MDM Narrative Medical decision making narrative: This 74-year-old male with a history of hypertension who is on carvedilol and losartan presents for evaluation of elevated blood pressure with some heartburn sensation. The patient states he had some spaghetti and meatballs for dinner followed by some wise pie. Afterwards he felt a little bit off and had some mild nausea. He did not vomit but felt this was unusual for him and he took his blood pressure medication after taking his blood pressure. His blood pressure was high at home even despite taking his blood pressure. He called his niece's nephew to bring him to the emergency department. Upon arrival he is awake alert. Blood pressure was noted to be elevated. He denies any chest pain or shortness of breath. His nausea has mostly resolved. An EKG done upon arrival was a sinus rhythm with no acute findings. An IV was placed and he was medicated with gentle hydration and Pepcid and Zofran. His blood pressure has slowly come down at the time of this dictation is in the 170s over 80s. A cardiac workup including CBC with differential, comprehensive metabolic profile, troponin and lactic acid was ordered. His lactic acid is minimally elevated at 2.1. He has a normal white count and hemoglobin. Glucose is mildly elevated at 209. BUN and creatinine are mildly elevated at 22 and 1.3. Troponin is normal at 6.1. Delta troponin is normal and repeat lactic acid is normal after IV fluids. In reevaluation he states he is feeling better. He is not certain if he would still be woozy if he got up to stand. Repeat troponin was ordered as well as COVID and influenza as the patient has some nasal congestion that just started earlier today. His blood pressure is now 162/68. COVID-19 and influenza and RSV testing are negative. Urine is negative for infection. He was given a trial of ambulation and tolerated it well and use the bathroom but his blood pressure did go back up to 193/81. At this point he will be given a clonidine and a dose of IV Labetolol. He has remained otherwise stable in the emergency department. He will be discharged home with a prescription for clonidine to use as needed if his blood pressure is greater than 180 systolic. I had a lengthy discussion with him about checking his blood pressure. I encouraged him to only check it in the morning when he wakes up and approximately 45 minutes after taking his blood pressure medication at night. I explained to him that every time he takes his blood pressure it will go up due to medical related anxiety. He verbalizes understanding of this. He will be discharged home with a prescription for clonidine to use as needed and I suggest that he follow-up closely with his family physician for further evaluation and treatment of the elevated blood pressure. Medical Records Medical records narrative: The [address] [address] XRay Report Signed Patient: LUCIE HIGH MR#: [id number] : 1950 Acct:[id number] Age/Sex: 74 / M ADM Date: 07/17/24 Loc: ER Attending Dr: Ordering Physician: Clarisa Webster Date of Service: 07/18/24 Procedure(s): XR chest 1V Accession Number(s): [id number] cc: GERSON RODRIGUEZ ; Clarisa Webster~ The [address] [address] Patient Name: LUCIE HIGH MRN: [id number] date: 1950 Sex: M Assigned Patient Location: ER Current Patient Location: ER Accession/Order Number: [id number] Exam Date: 07/18/2024 01:00 Report Date: 07/18/2024 01:50 At the request of: CLARISA WEBSTER Procedure: XR chest 1V EXAM: XR chest 1V HISTORY: CP COMPARISON: None. TECHNIQUE: One view of the chest. FINDINGS: The cardiac silhouette is mildly enlarged. Aortic atherosclerotic disease is seen. There are mild bibasilar opacities. There is no significant pneumothorax or pleural effusion. No acute osseous abnormality is seen. XR/XR chest 1V IMPRESSION: 1. Mildly enlarged cardiac silhouette with suspected bibasilar atelectasis. Electronically authenticated by: Estrellita ANGELO Date: 07/18/2024 01:50 Lab Data Lab results reviewed: Yes I reviewed the patient's lab results Labs: Lab Results 07/17/24 07/18/24 07/18/24 Range/Units 23:10 00:04 00:38 WBC 7.8 (4.0-11.0) 10^3/uL RBC 5.11 (4.70-6.10) 10^6/uL Hgb 14.2 (14.0-18.0) g/dL Hct 43.4 (42.0-54.0) % MCV 84.9 (80.0-94.0) fL MCH 27.8 (25.9-34.0) pg MCHC 32.7 (29.9-35.2) g/dL RDW 14.2 (11.0-15.0) % Plt Count 188 (150-450) 10^3/uL MPV 9.2 L (9.5-13.5) fL Neut % (Auto) 60.3 (43.0-75.0) % Lymph % (Auto) 24.6 (20.5-60.0) % [place] % (Auto) 6.4 (1.7-12.0) % Eos % (Auto) 7.6 H (0.9-7.0) % Baso % (Auto) 0.6 (0.2-2.0) % Neut # (Auto) 4.7 (1.4-6.5) 10^3/uL Lymph # (Auto) 1.9 (1.2-3.8) 10^3/uL [place] # (Auto) 0.5 (0.3-0.8) 10^3/uL Eos # (Auto) 0.6 (0.0-0.7) 10^3/uL Baso # (Auto) 0.1 (0.0-0.1) 10^3/uL Abs Immat Gran (auto) 0.04 H (0.00-0.03) 10^3/uL Imm/Tot Granulo (auto) 0.5 (0.0-0.5) % Sodium 136 (136-145) mmol/L Potassium 4.6 (3.5-5.1) mmol/L Chloride 101 (98-107) mmol/L Carbon Dioxide 28.6 (21.0-32.0) mmol/L Anion Gap 11.0 BUN 22.0 H (7.0-18.0) mg/dL Creatinine 1.31 H (0.70-1.30) mg/dL Est GFR ( Amer) >60 (>=60 mL/min/1.73m^2) Est GFR (Non-Af Amer) 53 L (>=60 mL/min/1.73m^2) BUN/Creatinine Ratio 16.8 Glucose 209 H (74-106) mg/dL Lactate 2.1 H 2.0 (0.4-2.0) mmol/L Calcium 8.8 (8.5-10.1) mg/dL Total Bilirubin 0.6 (0.2-1.0) mg/dL AST 20 (15-37) U/L ALT 27 (16-63) U/L Alkaline Phosphatase 84 (46-116) U/L Troponin I High Sens 6.1 (4.0-76.1) pg/mL Total Protein 7.4 (6.4-8.2) g/dL Albumin 3.5 (3.4-5.0) g/dL Globulin 3.9 g/dL Albumin/Globulin Ratio 0.9 Lipase 42.0 (16.0-77.0) U/L Urine Color Lt. yellow (YELLOW) Urine Clarity Clear (CLEAR) Urine pH 6.0 (5.0-9.0) Ur Specific [place] 1.020 (1.005-1.025) Urine Protein Negative (NEG/TRACE) mg/dL Urine Glucose (UA) 100 A (NEGATIVE) mg/dL Urine Ketones Negative (NEGATIVE) mg/dL Urine Occult Blood Negative (NEGATIVE) Urine Nitrite Negative (NEGATIVE) Urine Bilirubin Negative (NEGATIVE) Urine Urobilinogen 0.2 (0.2-1.0) EU/dL Ur Leukocyte Esterase Negative (NEGATIVE) Urine RBC 0-2 (0-2) #/HPF Urine WBC None seen (NONE SEEN) #/HPF Ur Squamous Epith Cells None seen (NONE/RARE) #/LPF Urine Crystals None seen (None Seen) #/HPF Urine Bacteria None seen (NONE SEEN) #/HPF Urine Casts None seen (NONE SEEN) #/LPF Urine Mucus None seen (NONE SEEN) Ur Culture Indicated? No Influenza Type A Ag Influenza Type B Ag SARS-CoV-2 Ag (CV2AG) (NEGATIVE) 07/18/24 07/18/24 Range/Units 00:56 01:01 WBC (4.0-11.0) 10^3/uL RBC (4.70-6.10) 10^6/uL Hgb (14.0-18.0) g/dL Hct (42.0-54.0) % MCV (80.0-94.0) fL MCH (25.9-34.0) pg MCHC (29.9-35.2) g/dL RDW (11.0-15.0) % Plt Count (150-450) 10^3/uL MPV (9.5-13.5) fL Neut % (Auto) (43.0-75.0) % Lymph % (Auto) (20.5-60.0) % [place] % (Auto) (1.7-12.0) % Eos % (Auto) (0.9-7.0) % Baso % (Auto) (0.2-2.0) % Neut # (Auto) (1.4-6.5) 10^3/uL Lymph # (Auto) (1.2-3.8) 10^3/uL [place] # (Auto) (0.3-0.8) 10^3/uL Eos # (Auto) (0.0-0.7) 10^3/uL Baso # (Auto) (0.0-0.1) 10^3/uL Abs Immat Gran (auto) (0.00-0.03) 10^3/uL Imm/Tot Granulo (auto) (0.0-0.5) % Sodium (136-145) mmol/L Potassium (3.5-5.1) mmol/L Chloride (98-107) mmol/L Carbon Dioxide (21.0-32.0) mmol/L Anion Gap BUN (7.0-18.0) mg/dL Creatinine (0.70-1.30) mg/dL Est GFR ( Amer) (>=60 mL/min/1.73m^2) Est GFR (Non-Af Amer) (>=60 mL/min/1.73m^2) BUN/Creatinine Ratio Glucose (74-106) mg/dL Lactate (0.4-2.0) mmol/L Calcium (8.5-10.1) mg/dL Total Bilirubin (0.2-1.0) mg/dL AST (15-37) U/L ALT (16-63) U/L Alkaline Phosphatase (46-116) U/L Troponin I High Sens 7.7 (4.0-76.1) pg/mL Total Protein (6.4-8.2) g/dL Albumin (3.4-5.0) g/dL Globulin g/dL Albumin/Globulin Ratio Lipase (16.0-77.0) U/L Urine Color (YELLOW) Urine Clarity (CLEAR) Urine pH (5.0-9.0) Ur Specific [place] (1.005-1.025) Urine Protein (NEG/TRACE) mg/dL Urine Glucose (UA) (NEGATIVE) mg/dL Urine Ketones (NEGATIVE) mg/dL Urine Occult Blood (NEGATIVE) Urine Nitrite (NEGATIVE) Urine Bilirubin (NEGATIVE) Urine Urobilinogen (0.2-1.0) EU/dL Ur Leukocyte Esterase (NEGATIVE) Urine RBC (0-2) #/HPF Urine WBC (NONE SEEN) #/HPF Ur Squamous Epith Cells (NONE/RARE) #/LPF Urine Crystals (None Seen) #/HPF Urine Bacteria (NONE SEEN) #/HPF Urine Casts (NONE SEEN) #/LPF Urine Mucus (NONE SEEN) Ur Culture Indicated? Influenza Type A Ag Negative Influenza Type B Ag Negative SARS-CoV-2 Ag (CV2AG) Negative (NEGATIVE) ECG Data Attestation: I personally reviewed and interpreted this ECG as follows: (Sinus rhythm at 76 bpm, normal axis, low voltage in chest leads, no acute ST segment elevation or T wave inversion) Discharge Plan Discharge Chief Complaint: Nausea/Vomiting/Diarrhea Clinical Impression: Hypertension Patient Disposition: Home, Self-Care Time of Disposition Decision: 02:27 Condition: Good Prescriptions / Home Meds: No Action aspirin [Adult Aspirin Regimen] 81 mg tablet,delayed release (DR/EC) 81 mg PO DAILY carvedilol 12.5 mg tablet 12.5 mg PO Q12H fluticasone propionate 50 mcg/actuation spray,suspension 1 spray INTRANASAL Q12H losartan-hydrochlorothiazide 50-12.5 mg tablet 1 tab PO QDAY metformin 1,000 mg tablet 500 mg PO BID rosuvastatin 5 mg tablet 5 mg PO QDAY tolterodine 4 mg capsule,extended release 24hr 4 mg PO Q24H hydrocodone-acetaminophen 5-325 mg Tablet 1 tab PO Q6H PRN (Reason: Pain Scale 4-6) Qty: 12 0RF Print Language: Persian Instructions: Chronic Hypertension (DC), DASH Eating Plan (ED), Hypertension (ED) Referrals: GERSON RODRIGUEZ [Primary Care Provider] - 1 week
--- NOTE | 2024-07-18 00:47 | XR_ITS ---
The [address] [address] Patient Name: LUCIE HIGH MRN: [id number] date: 1950 Sex: M Assigned Patient Location: ER Current Patient Location: ER Accession/Order Number: [id number] Exam Date: 07/18/2024 01:00 Report Date: 07/18/2024 01:50 At the request of: MACY MARKER Procedure: XR chest 1V EXAM: XR chest 1V HISTORY: CP COMPARISON: None. TECHNIQUE: One view of the chest. FINDINGS: The cardiac silhouette is mildly enlarged. Aortic atherosclerotic disease is seen. There are mild bibasilar opacities. There is no significant pneumothorax or pleural effusion. No acute osseous abnormality is seen. XR/XR chest 1V IMPRESSION: 1. Mildly enlarged cardiac silhouette with suspected bibasilar atelectasis. Electronically authenticated by: Estrellita ANGELO Date: 07/18/2024 01:50
[2024-07-18 01:22] LABS: Influenza Virus A Antigen Negative; Influenza Virus B Antigen Negative; Internal Control Within Normal Limits; SARS-CoV-2 Ag NEGATIVE (NEGATIVE)
[2024-07-18 01:26] LABS: Troponin I High Sensitivity 7.7 pg/mL (4.0-76.1)
--- NOTE | 2024-07-18 01:51 | PC.NURSE ---
per Dr Webster this was ambulated and gait steady and this patient said this was his normal walk for him.
[2024-07-18 01:56] LABS: Bilirubin Urine NEGATIVE (NEGATIVE); Blood Urine NEGATIVE (NEGATIVE); Clarity Urine CLEAR (CLEAR); Color Urine LT. YELLOW (YELLOW); Glucose Urine UA 100 mg/dL (NEGATIVE); Ketones Urine NEGATIVE (NEGATIVE); Leukocyte Esterase Urine NEGATIVE (NEGATIVE); Nitrite Urine NEGATIVE (NEGATIVE); Protein Urine NEGATIVE (NEG/TRACE); Urobilinogen Urine 0.2 EU/dL (0.2-1.0)
[2024-07-18 02:02] LABS: Bacteria Urine NONE SEEN #/HPF (NONE SEEN); Cast Seen? NONE SEEN #/LPF (NONE SEEN); Crystals Seen? None Seen #/HPF (None Seen); Mucus Urine NONE SEEN (NONE SEEN); RBC Urine 0-2 #/HPF (0-2); Squamous Epithelial Cell Urine NONE SEEN #/LPF (NONE/RARE); Urine Culture Indicated NO; WBC Urine NONE SEEN #/HPF (NONE SEEN)
[2024-07-18] MEDS: LABETALOL HCL 20 MG/4 ML SYRINGE 10 MG IVP (02:11)
--- NOTE | 2024-07-18 02:42 | PC.NURSE ---
i gave this patient verbal and written discharge orders along with 1 Rx and this patient voices yes to understaging these. at time of discharge this patient voices no concerns and shows no signs of distress
== END 2024-07-18 02:44 | disposition home or self-care (01) ==
PROVIDERS: Emergency Provider Emergency Medicine; PCP Internal Medicine
DX: I10 Essential (primary) hypertension (principal); G62.9 Polyneuropathy, unspecified; Z79.899 Other long term (current) drug therapy
CPT/HCPCS: 36415; 71045; 80053; 81001; 83605; 83690; 84484; 85025; 87804; 87811; 93005; 96374; 99285; J1920

== ENCOUNTER 2025-01-04 23:19 | Emergency (ER) | payer MEDICARE, SELFPAY ==
[2025-01-04 23:26] VITALS: BP 182/80; PULSE 71; TEMP 36.6; O2SAT 97; BMI 31.3
[2025-01-04 23:33] VITALS: O2SAT 98
[2025-01-04 23:34] VITALS: BP 202/78; O2SAT 97
--- OUTSIDE RECORDS SUMMARY | 2025-01-04 23:36 | XMS_ITS | CCD ---
Author Organization [facility] Care Team Providers Care Date Puller Name Role Phone Judith Gibson Unavailable Weston Borja II Primary Care Unavail able Emily BARRERA, Dr. Cosmo Torrez Attending Unavailable Emily BARRERA, Dr. Cosmo Torrez Referring Unavailable WESTON BORJA Primary Care Physician [phone] LEONARD ESPITIA Admitting Unavailable JENNIFER, DR NIETO Primary Care Unavailable LEONARD ESPITIA Attending Unavailable LEONARD ESPITIA Consulting Unavailable KALEB LIRA Consulting Unavailable JENNIFER, DR NIETO Admitting Unavailable JENNIFER, DR NIETO Attending Unavailable JENNIFER, DR NIETO Consulting Unavailable JENNIFER, DR NIETO Primary Care Unavailable TESORAL, FRANKIE Primary Care Unavailable TESORAL, FRANKIE Admitting Unavailable TESORAL, FRANKIE Attending Unavailable TESROAL, FRANKIE Consulting Unavailable TESORAL, FRANKIE Primary Care Unavailable TESMOND, FRANKIE Admitting Unavailable TESMOND, FRANKIE Attending Unavailable TESORAL, FRANKIE Consulting Unavailable JENNIFER, DR NIETO Primary Care Unavailable HEMMER, DR TITA Juarez Attending Unavailable HEMMER, DR TITA Juarez Consulting Unavailable HEMMER, DR TITA Juarez Admitting Unavailable JENNIFER, DR NIETO Primary Care Unavailable SYLVIAUINMaxine, DR VANG Attending Unavailable SYLVIAUINMaxine, DR VANG Consulting Unavailable EMILY, DR VANG Admitting Unavailable LEONARD ESPITIA Admitting Unavailable JENNIFER, DR NIETO Primary Care Unavailable LEONARD ESPITIA Attending Unavailable LEONARD ESPITIA Consulting Unavailable NILL, Dakota Hoang Attending Unavailable NILL, Dakota Hoang Attending Unavailable NILL, Dakota Hoang Attending Unavailable NILL, Dakota Hoang Attending Unavailable NILL, Dakota Hoang Attending Unavailable NILL, Dakota Hoang Attending Unavailable Shan SU Attending Unavailable WESTON BORJA Referring Unavailable Dakota AHN Attending Unavailable Weston Borja Unavailable Unavailable Unavailable Weston Borja MD Unavailable [phone] Weston Borja MD Primary Care Provider Thursday Mercedez LANG Unavailable Frankie Irby DO Unavailable Frankie Irby DO Unavailable [phone] TITA WESTBROOK Attending Unavailable BORAJ, WESTON B Attending Unavailable BORJA, WESTON B Attending Unavailable BORJA, WESTON B Attending Unavailable HEMTITA TEMPLE Attending Unavailable BORJA, WESTON B Attending Unavailable BORJA, WESTON B Attending Unavailable BLACKSTON, ALEXIS Bay Attending Unavailable BORJA, WESTON B Referring Unavailable BRINK, SYBIL Attending Unavailable BORJA, WESTON B Referring Unavailable BRINK, SYBIL Attending Unavailable BORJA, WESTON B Referring Unavailable BRINK, SYBIL Attending Unavailable BORJA, WESTON B Referring Unavailable BORJA, WESTON B Attending Unavailable BLACKSTON, ALEXIS Bay Attending Unavailable BORJA, WESTON B Referring Unavailable BRINK, SYBIL Attending Unavailable BORJA, WESTON B Referring Unavailable BLACKSTON, ALEXIS T Attending Unavailable BORJA, WESTON B Referring Unavailable KELBLEY, CLARISA Attending Unavailable BORJA, WESTON B Referring Unavailable [...] (1 source) Penicillin G Drug Allergy Unknown [facility] Other (20 sources) Penicillins; Translations: [penicillins] Drug allergy 3 Asthenia (finding), Other [facility] (20 sources) Penicillin V Drug Allergy 3 [facility] (20 sources) Ciprofloxacin Drug Allergy 4 Other [facility] Work Phone: Medications Current [...] 1 tablet Orally Once a day Active azithromycin 250 mg oral tablet (2 sources) Macrolide Antimicrobial Start: 08-22-2024 End: 08-27-2024 take 2 tablets by mouth once daily, then take 1 tablet by mouth once daily azithromycin (Zithromax) 250 MG tablet Indications: Acute sinusitis, recurrence not specified, unspecified location Take 2 tablets (500 mg) by mouth Daily for 1 day, THEN 1 tablet (250 mg) Daily for 4 days. 6 tablet 08/22/2024 08/27/2024 Active carvedilol 12.5 mg oral tablet (20 sources) alpha-Adrenergic Horacio, beta-Adrenergic Horacio Start: 12-08-2023 Carvedilol Active MG PO December 08, 2023 12:00am Start: 10-01-2022 End: 04-20-2024 carvedilol (Coreg) 12.5 MG t ablet Indications: Essential (primary) hypertension TAKE 1 TABLET TWICE DAILY 180 tablet 3 04/20/2024 Active Coreg 3.125 MG O rally Active fluticasone propionate 0.05 mg/actuat metered dose nasal spray (20 sources) Corticosteroid Start: 07-20-2024 take 2 spray(s) nasal route once daily fluticasone (Flonase) 50 MCG/ACT nasal spray Indications: Lesion of nasal cavity SPRAY 2 SPRAYS INTO EACH NOSTRIL EVERY DAY 16 mL 3 07/20/2024 Active Start: 05-10-2024 take 2 spray(s) nasa l route once [...] Active Start: 09-29-2022 Flonase 0.05 m g/inh [place] 2 spray(s), Nasal, Daily, Refill(s) 0 Start [...] long-term current use of insulin, unspecified laterality (HCC) TAKE 1 TABLET EVERY DAY 90 tablet 3 04/20/2024 Active hydroCHLOROthiazide 12.5 mg / losartan potassium 50 mg oral tablet (20 sources) Thiazide Diuretic, Angiotensin 2 Receptor Horacio Start: 07-18-2024 End: 07-18-2025 take 1 tablet by mouth once daily losartan-hydroCHLOROthiazide (Hyzaar) 50-12.5 MG tablet Indications: Primary hypertension Take 1 tablet by mouth Daily 07/18/2024 07/18/2025 Active Start: 09-01-2022 take 1 tablet by basim th in the morning losartan-hydroCHLOROthiazide (Hyzaar) 50-12.5 MG tablet Take 1 tablet by mouth in the morning. 0 09/01/2022 Active Start: 09-01-2022 take 1 tablet by basim th once daily hydrochlorothiazide-losartan 12.5 mg-50 mg Tab 1 tab(s), Oral, Daily, Refill(s) 0 Start Date: 10/01/22 Status: Ordered loratadine 10 mg oral tablet (7 sources) Start: 10-12-2024 End: 10-22-2024 take 1 tablet by mouth once daily loratadine (Claritin) 10 MG tablet Indications: Dysfunction of right eustachian tube Take 1 tablet (10 mg) by mouth Daily for 10 days 10 tablet 10/12/2024 Active metFORMIN hydrochloride 500 mg oral tablet (7 [...] 5 days. 10 capsule 03/07/2024 03/14/2024 Discontinued predniSONE 10 mg oral tablet (5 sources) Start: 10-12-2024 End: 10-21-2024 take 1 tablet by mouth three times daily, then take 1 tablet by mouth twice daily, then take 1 tablet by mouth once daily predniSONE (Deltasone) 10 MG tablet Indications: Dysfunction of right eustachian tube Take 1 tablet (10 mg) by mouth 3 (three) times a day for 3 days, THEN 1 tablet (10 mg) 2 (two) times a day for 3 days, THEN 1 tablet (10 mg) Daily for 3 days. 18 tablet 10/12/2024 10/21/2024 Active pregabalin 100 mg oral capsule (20 sources) Start: 12-26-2024 End: 06-24-2025 take 1 capsule by mouth in the morning pregabalin (Lyrica) 100 MG capsule Indications: Diabetic peripheral neuropathy (HCC) Take 1 capsule (100 mg) by mouth in the morning and 1 capsule (100 mg) before bedtime. 60 capsule 5 12/26/2024 06/24/2025 Active Start: 07-18-2024 End: 10-16-2024 take 1 capsule by mouth in the morning, then take 1 capsule by mouth in the evening, then take 1 capsule by mouth at bedtime pregabalin (Lyrica) 25 MG capsule Indications: Diabetic peripheral neuropathy (CMS/HCC) , Idiopathic progressive neuropathy Take 1 capsule (25 mg) by mouth in the morning and 1 capsule (25 mg) in the evening and 1 capsule (25 mg) before bedtime. 07/18/2024 08/22/2024 Discontinued Start: 09-02-2023 End: 05-16-2024 take 1 capsule [...] bedtime. 270 capsule 0 05/12/2023 08/10/2023 Active rosuvastatin calcium 5 mg oral tablet (20 sources) HMG-CoA Reductase Inhibitor Start: 12-08-2023 Rosuvastatin Active MG PO December 08, 2023 12:00am Start: 04-05-2019 End: 04-20-2024 rosuvastatin (Crestor) 5 MG tablet Indications: Pure hypercholesterolemia, unspecified TAKE 1 TABLET AT BEDTIME 90 tablet 3 04/20/2024 Active tamsulosin hydrochloride 0.4 mg oral capsule (20 sources) alpha-Adrenergic Horacio Start: 12-08-2023 Tamsu losin Active MG PO December 08, 2023 12:00am Start: 10-28-2023 End: 10-27-2024 take 1 capsule by mouth once daily tamsulosin (Flomax) 0.4 MG 24 hr capsule Indications: BPH with urinary obstruction TAKE 1 CAPSULE BY MOUTH EVERY DAY 90 capsule 3 10/25/2024 Active thiamine 100 mg oral tablet (1 [...] Drug Class(es) Dates Sig (Normalized) Sig (Original) cloNIDine hydrochloride 0.1 mg oral tablet (12 sources) Central alpha-2 Adrenergic Agonist End: 10-17-2024 cloNIDine (Catapres) 0.1 MG tablet Take by mouth 2 (two) times a day 10/17/2024 Discontinued (Therapy completed) furosemide 20 mg oral tablet (20 sources) Loop Diuretic Start: 12-10-2023 End: 05-16-2024 take 1 tablet by mouth once daily furosemide (Lasix) 20 MG tablet Indications: Localized edema Take 1 tablet (20 mg) by mouth Daily for 7 days 7 tablet 12/10/2023 05/16/2024 Discontinued Problems Active Problems Problem Classification Problem Date Documented Date Episodic/Chronic Acute myocardial infarction (20 sources) Myocardial infarction; Translations: [ST elevation (STEMI) myocardial infarction involving other coronary artery of inferior wall] Onset: 01-17-2023 05-09-2019 Chronic Administrative/social admission (4 sources) Patient encounter status; Translations: [Other specified counseling] 05-16-2024 Episodic Cardiac dysrhythmias (2 sources) Supraventricular tachycardia; Translations: [Paroxysmal supraventricular tachycardia] Onset: 10-02-2022 Chronic Cataract (20 sources) Bilateral age-related nuclear cataracts; Translations: [Age-related nuclear cataract, bilateral] Onset: 04-06-2023 04-06-2023 Chronic Coronary atherosclerosis and other heart disease (20 sources) Coronary arteriosclerosis; Translations: [Atherosclerotic heart disease of [place] coronary artery without angina pectoris] Onset: 08-19-2022 [...] urgency; Translations: [HYPERTENSIVE URGENCY] Onset: 08-19-2022 Chronic Malaise and fatigue (2 sources) Fatigue; Translations: [Chronic fatigue, unspecified] 10-17-2024 Chronic Nonspecific chest pain (4 sources) Other [...] 12-22-2022 12-22-2022 Chronic Other aftercare (1 source) 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; Translations: [DETENTION CURRENT USE OF ASPIRIN] Onset: 08-19-2022 Episodic Other aftercare (1 source) termite control servicer (current) use of oral hypoglycemic drugs; Translations: [CARTRIDGE FILLER USE ORAL HYPOGLYCEMIC DX] Onset: 08-19-2022 Episodic Other aftercare (1 source) Other care home (current) drug therapy; Translations: [OTH DETENTION CURRENT DRUG THERAPY] Onset: 08-19-2022 Episodic Other [...] Bleeding from nose; Translations: [Epistaxis] 06-29-2024 Episodic Otitis media and related conditions (2 sources) Dysfunction of right eustachian tube; Translations: [Unspecified Eustachian tube disorder, right ear] 10-12-2024 Episodic Spondylosis; intervertebral disc disorders; other back [...] pharyngitis, unspecified; Translations: [Acute maxillary sinusitis] Onset: 12-28-2021 12-22-2022 Episodic Spondylosis; intervertebral disc disorders; other back [...] Test Name Value Interpretation Reference Range Facility CORTISOL, TOTALon 12-02-2024 CORTISOL, TOTAL 20.4 mcg/dL Normal [facility] Comment on above: Result Comment: Refe rence Range: For 8 a.m.(7-9 a.m.) Specimen: 4.0-22.0 Reference Range: For 4 p.m.(3-5 p.m.) Specimen: 3.0-17.0 * Please interpret above results accordingly * Performed By: #### 8 66, 44855, 899, 367 #### [facility] [place] [address] [employer] Mechan[employer] Apprentice: Sagar Pathak MD #### [id number] #### [facility]/[address] [place], [place] [employer] Engine Mechan[employer] Apprentice: Shan Ashby M.D.,PhD T3, [facility] 12-02-2024 Free T3 [Mass/Vol] 3.1 pg/mL Normal 2.3-4.2 [facility] Comment on above: Performed By: #### 8 66, 10520, 899, 367 #### [facility] [address] [employer]el Engine Mechanic Apprentice: Sagar Pathak MD #### [id number] #### [facility]/[address] [place], [place] [employer] Engine Mechan[employer] Apprentice: Shan Ashby M.D.,PhD T4, [facility] 12-02-2024 Free T4 [Mass/Vol] 1.0 ng/dL Normal 0.8-1.8 [facility] Comment on above: Performed By: #### 8 66, 80023, 899, 367 #### [facility] [address] [employer]el Engine Mechanic Apprentice: Sagar Pathak MD #### [id number] #### [facility]/[address] [place], [place] [employer] Engine Mechanic Apprentice: Shan Ashby M.D.,PhD TESTOSTERONE, FREE (DIALYSIS ) AND TOTAL,MN12-02-2024 TESTOSTERONE, FREE 52.1 pg/mL Normal 30.0-135.0 [facility] Comment on above: Result Comment: This test was developed and its analytical performance characteristics have been determined by [employer] [place], [place]. It has not been cleared or approved by the U.S. Food and Drug Administration. This assay has been validated pursuant to the CLIA regulations and is used for clinical purposes. Performed By: #### 8 66, 46307, 899, 367 #### [facility] [address] [address] [employer] Mechanic Apprentice: Sagar Pathak MD #### [id number] #### [facility] [address] [facility] [place], [place] [employer]el Engine Mechanic Apprentice: Shan Ashby M.D.,PhD TESTOSTERONE, TOTAL, MS 352 ng/dL Normal 250-1100 [facility] Comment on above: Result Comment: Men with clinically significant hypogonadal symptoms and testosterone values repeatedly in the range of the 200-300 ng/dL or less, may benefit from testosterone treatment after adequate risk and benefits counseling. For additional information, please refer to http://education.FilmBreak/faq/ [email or web address] (This link is being provided for informational/ educational purposes only.) This test was developed and its analytical performance characteristics have been determined by [employer] [place], [place]. It has not been cleared or approved by the U.S. Food and Drug Administration. This assay has been validated pursuant to the CLIA regulations and is used for clinical purposes. Performed By: #### 8 49, 68709, 899, 367 #### [facility] [address] [address] [employer] Mechanic Apprentice: Sagar Pathak MD #### [id number] #### [facility] [place], [place] [employer] Engine Mechanic Apprentice: Shan Ashby M.D.,PhD TSHon 12-02-2024 TSH Qn 1.20 m[IU]/L Normal 0.40-4.50 [facility] Comment on above: Performed By: #### 8 66, 31946, 899, 367 #### [facility] [address] [address] [employer] Mechanic Apprentice: Sagar Pathak MD #### [id number] #### [facility] [address] [facility] [place] [address] [employer] Mechan[employer] Apprentice: Shan Ashby M.D.,PhD Laboratory - Hematology and Cell countson 10-17-2024 HbA1c (Bld) [Mass fraction] 6.3 % [facility] No Panel Informationon 10-17 [facility] CBC (INCLUDES DIFF/PLT)on Basophils (Bld) [#/Vol] 0.048 10*3/uL Normal 0-200 [facility] Comment on above: Performed By: #### 6 399, 77842, 38493, 7600 #### [facility] of [address], [address] [place] [address] [employer] Mechanic Apprentice: Sagar Pathak MD Basophils/100 WBC (Bld) 0.7 % Normal [facility] Comment on above: Performed By: #### 6 399, 79098, 43976, 7600 #### [facility] of [address], [address] [place] [address] [employer] Mechanic Apprentice: Sagar Pathak MD Eosinophils (Bld) [#/Vol] 0.476 10*3/uL Normal 15-500 [facility] Comment on above: Performed By: #### 6 399, 25053, 14605, 7600 #### [facility] of [address], [address] [place] [address] [employer] Mechanic Apprentice: Sagar Pathak MD Eosinophils/100 WBC (Bld) 6.9 % Normal [facility] Comment on above: Performed By: #### 6 399, 12817, 70956, 7600 #### [facility] of [address], [address] [place] [address] [employer] Mechanic Apprentice: Sagar Pathak MD Erythrocyte distribution width (RBC) [Ratio] 14.4 % Normal 11.0-15.0 [facility] Comment on above: Performed By: #### 6 399, 41440, 62542, 7600 #### [facility] of [address], [address] [place] [address] [employer] Mechanic Apprentice: Sagar Pathak MD Hematocrit (Bld) [Volume fraction] 46.6 % Normal 38.5-50.0 [facility] Comment on above: Performed By: #### 6 399, , 75406, 7600 #### [facility] of [address], [address] [place] [address] [employer] Mechanic Apprentice: Sagar Pathak MD Hemoglobin (Bld) [Mass/Vol] 15.0 g/dL Normal 13.2-17.1 [facility] Comment on above: Performed By: #### 6 399, , 31968, 7600 #### [facility] of [place] [address] [employer] Mechanic Apprentice: Sagar Pathak MD Lymphocytes (Bld) [#/Vol] 2.215 10*3/uL Normal 850-3900 [facility] Comment on above: Performed By: #### 6 399, , , 7600 #### [facility] of [place] [address] [employer]el Engine Mechanic Apprentice: Sagar Pathak MD Lymphocytes/100 WBC (Bld) 32.1 % Normal [facility] Comment on above: Performed By: #### 6 399, , 41074, 7600 #### [facility] of [place] [address] [employer]el Engine Mechanic Apprentice: Sagar Pathak MD MCH (RBC) [Entitic mass] 27.6 pg Normal 27.0-33.0 [facility] Comment on above: Performed By: #### 6 399, , 03502, 7600 #### [facility] of [place] [address] [employer] Mechan[employer] Apprentice: Sagar Pathak MD MCHC (RBC) [Mass/Vol] 32.2 g/dL Normal 32.0-36.0 [facility] Comment on above: Result Comment: For adults, a slight decrease in the calculated MCHC value (in the range of 30 to 32 g/dL) is most likely not clinically significant; however, it should be interpreted with caution in correlation with other red cell parameters and the patient's clinical condition. Performed By: #### 6 399, 45393, 06769, 7600 #### [facility] of [place] [address] [employer] Apprentice: Sagar Pathak MD MCV (RBC) [Entitic vol] 85.8 fL Normal 80.0-100.0 [facility] Comment on above: Performed By: #### 6 399, 82417, 18897, 7600 #### [facility] of [place] [address] [employer] Mechanic Apprentice: Sagar Pathak MD Monocytes (Bld) [#/Vol] 0.518 10*3/uL Normal 200-950 [facility] Comment on above: Performed By: #### 6 399, , 83742, 7600 #### [facility] of [place] [address] [employer] Mechanic Apprentice: Sagar Pathak MD Monocytes/100 WBC (Bld) 7.5 % Normal [facility] Comment on above: Performed By: #### 6 399, , 35928, 7600 #### [facility] of [place] [address] [employer] Mechanic Apprentice: Sagar Pathak MD Neutrophils (Bld) [#/Vol] 3.643 10*3/uL Normal 5163-8861 [facility] Comment on above: Performed By: #### 6 399, , 44294, 7600 #### [facility] of [place] [address] [employer]el [employer] Mechanic Apprentice: Sagar Pathak MD Neutrophils/100 WBC (Bld) 52.8 % Normal [facility] Comment on above: Performed By: #### 6 399, 89565, 72398, 7600 #### [facility] of [place] [address] [employer] Mechanic Apprentice: Sagar Pathak MD Platelet mean volume (Bld) [Entitic vol] 9.8 fL Normal 7.5-12.5 [facility] Comment on above: Performed By: #### 6 399, 94400, 05410, 7600 #### [facility] of [place] [address] [employer] Mechan[employer] Apprentice: Sagar Pathak MD Platelets (Bld) [#/Vol] 209 10*3/uL Normal 140-400 [facility] Comment on above: Performed By: #### 6 399, 09924, 71949, 7600 #### [facility] of [address], [address] [place] [address] [employer] Mechanic Apprentice: Sagar Pathak MD RBC (Bld) [#/Vol] 5.43 10*6/uL Normal 4.20-5.80 [facility] Comment on above: Performed By: #### 6 399, 21433, 95805, 7600 #### [facility] of [place] [address] [employer]el [employer] Mechanic Apprentice: Sagar Pathak MD WBC (Bld) [#/Vol] 6.9 10*3/uL Normal 3.8-10.8 [facility] Comment on above: Performed By: #### 6 399, 06489, 80371, 7600 #### [facility] of [place] [address] [employer]el Engine Mechanic Apprentice: Sagar Pathak MD [facility] [facility] 07-01-2024 Albumin [Mass/Vol] 4.1 g/dL Normal 3.6-5.1 [facility] Comment on above: Performed By: #### 6 399, 36801, 23244, 7600 #### [facility] of [place] [address] [employer] Mechanic Apprentice: Sagar Pathak MD Albumin/Globulin [Mass ratio] 1.4 {ratio} Normal 1.0-2.5 [facility] Comment on above: Performed By: #### 6 399, 30861, 67886, 7600 #### [facility] of [place] [address] [employer]el Engine Mechanic Apprentice: Sagar Pathak MD ALP [Catalytic activity/Vol] 68 U/L Normal 35-144 [facility] Comment on above: Performed By: #### 6 399, 66662, 31893, 7600 #### [facility] of [place] [address] [employer]el Engine Mechanic Apprentice: Sagar Pathak MD ALT [Catalytic activity/Vol] 17 U/L Normal 9-46 [facility] Comment on above: Performed By: #### 6 399, 42762, 49359, 7600 #### [facility] of [place] [address] [employer] Engine Mechanic Apprentice: Sagar Pathak MD AST [Catalytic activity/Vol] 18 U/L Normal 10-35 [facility] Comment on above: Performed By: #### 6 399, 19446, 00551, 7600 #### [facility] of [place] [address] [employer] Mechanic Apprentice: Sagar Pathak MD Bilirubin [Mass/Vol] 1.0 mg/dL Normal 0.2-1.2 [facility] Comment on above: Performed By: #### 6 399, 75546, 32642, 7600 #### [facility] [place] [address] [employer] Mechan[employer] Apprentice: Sagar Pathak MD BUN/CREATININE RATIO SEE NOTE: Normal 6-22 [facility] Comment on above: Result Comment: Not Reported: BUN and Creatinine are within reference range. Performed By: #### 6 399, 04610, 38727, 7600 #### [facility] of [place] [address] [employer] Mechan[employer] Apprentice: Sagar Pathak MD Calcium [Mass/Vol] 9.1 mg/dL Normal 8.6-10.3 [facility] Comment on above: Performed By: #### 6 399, 55595, 64263, 7600 #### [facility] of [place] [address] [employer] Mechanic Apprentice: Sagar Pathak MD Chloride [Moles/Vol] 105 mmol/L Normal 98-110 [facility] Comment on above: Performed By: #### 6 399, 95257, 27599, 7600 #### [facility] [address], [address] [place] [address] [employer] Mechanic Apprentice: Sagar Pathak MD CO2 [Moles/Vol] 25 mmol/L Normal 20-32 [facility] Comment on above: Performed By: #### 6 399, 04824, 60099, 7600 #### [facility] [place] [address] [employer] Mechanic Apprentice: Sagar Pathak MD Creatinine [Mass/Vol] 0.84 mg/dL Normal 0.70-1.28 [facility] Comment on above: Performed By: #### 6 399, 28486, 37793, 7600 #### [facility] [place] [address] [employer] Mechanic Apprentice: Sagar Pathak MD GFR/1.73 sq M.predicted among non-blacks MDRD (S/P/Bld) [Vol rate/Area] 91 mL/min/{1.73_m2} Normal > OR = 60 [facility] Comment on above: Performed By: #### 6 399, 54719, 87799, 7600 #### [facility] [place] [address] [employer] Mechanic Apprentice: Sagar Pathak MD Globulin (S) [Mass/Vol] 2.9 g/dL Normal 1.9-3.7 [facility] Comment on above: Performed By: #### 6 399, 44851, 14673, 7600 #### [facility] [place] [address] [employer] Mechanic Apprentice: Sagar Pathak MD Glucose [Mass/Vol] 119 mg/dL High 65-99 [facility] Comment on above: Result Comment: Fasting reference interval For someone without known diabetes, a glucose value between 100 and 125 mg/dL is consistent with prediabetes and should be confirmed with a follow-up test. Performed By: #### 6 399, 15557, 51962, 7600 #### [facility] [place] [address] [employer] Mechan[employer] Apprentice: Sagar Pathak MD Potassium [Moles/Vol] 4.4 mmol/L Normal 3.5-5.3 [facility] Comment on above: Performed By: #### 6 399, 10732, 09679, 7600 #### [facility] of [address], [address] [place] [address] [employer]el Engine Mechanic Apprentice: Sagar Pathak MD Protein [Mass/Vol] 7.0 g/dL Normal 6.1-8.1 [facility] Comment on above: Performed By: #### 6 399, 14909, 77973, 7600 #### [facility] of [address], [address] [place] [address] [employer] Engine Mechanic Apprentice: Sagar Pathak MD Sodium [Moles/Vol] 139 mmol/L Normal 135-146 [facility] Comment on above: Performed By: #### 6 399, 02152, 91157, 7600 #### [facility] of [address], [address] [place] [address] [employer] Mechan[employer] Apprentice: Sagar Pathak MD Urea nitrogen [Mass/Vol] 16 mg/dL Normal 7-25 [facility] Comment on above: Performed By: #### 6 399, 69295, 15268, 7600 #### [facility] [place] [address] [employer]ice: Sagar Pathak MD LIPID PANEL, [facility] [place] 06-03 Cholesterol [Mass/Vol] 143 mg/dL Normal <200 [facility] Comment on above: Order Comment: FASTI NG:YES FASTING: YES Performed By: #### 6 399, 97981, 09280, 7600 #### [facility] of [place] [address] [employer]ice: Sagar Pathak MD Cholesterol in HDL [Mass/Vol] 55 mg/dL Normal > OR = 40 [facility] Comment on above: Order Comment: FASTI NG:YES FASTING: YES Performed By: #### 6 399, 25519, 10374, 7600 #### [facility] [address] [address] [employer] Apprentice: Sagar Pathak MD Cholesterol in LDL [Mass/Vol] [...] LDL-C. Jorge GREEN et al. ISAÍAS. 2013;310(19): 0197-1754 (http://education.GoPlaceIt.RunAlong/faq/XTI243) Performed By: #### 6 399, 01007, 04850, 7600 #### [facility] [place] [address] [employer] Apprentice: Sagar Pathak MD Cholesterol.total/C holesterol in HDL [Mass ratio] 2.6 {ratio} Normal <5.0 [facility] Comment on above: Order Comment: FASTI NG:YES FASTING: YES Performed By: #### 6 399, 05635, 98467, 7600 #### [facility] [place] [address] [employer] Apprentice: Sagar Pathak MD NON HDL CHOLESTEROL 88 mg/dL (calc) Normal <130 [facility] Comment on above: Order Comment: FASTI NG:YES FASTING: YES Result Comment: For patients with diabetes plus 1 major ASCVD risk factor, treating to a non-HDL-C goal of <100 mg/dL (LDL-C of <70 mg/dL) is considered a therapeutic option. Performed By: #### 6 399, 67696, 31159, 7600 #### [facility] [address], [address] [place] [address] [employer] Apprentice: Sagar Pathak MD Triglyceride [Mass/Vol] 93 mg/dL Normal <150 [facility] Comment on above: Order Comment: FASTI NG:YES FASTING: YES Performed By: #### 6 399, 01135, 17708, 7600 #### [facility] [place] [address] [employer] Apprentice: Sagar Pathak MD PSA, TOTALon 07-01-2024 PSA, TOTAL 1.24 ng/mL Normal < OR = 4.00 [facility] Comment on above: Result Comment: The total PSA value from this assay system is standardized against the WHO standard. The test result will be approximately 20% lower when compared to the equimolar-standardized total PSA ([place]). Comparison of serial PSA results should be interpreted with this fact in mind. This test was performed using the Siemens chemiluminescent method. Values obtained from different assay methods cannot be used interchangeably. PSA levels, regardless of value, should not be interpreted as absolute evidence of the presence or absence of disease. Performed By: #### 6 399, 85003, 52775, 7600 #### [facility] [place] [address] [employer] App[employer]ice: Sagar Pathak MD TSH W/REFLEX TO FT4on 2024 TSH W/REFLEX TO FT4 1.24 mIU/L Normal 0.40-4.50 [facility] Comment on above: Performed By: #### 6 399, 11385, 61836, 7600 #### [facility] [place] [address] [employer] Mechan[employer] Apprentice: Sagar Pathak MD No Panel Informationon 06-29 [...] Procedure completion: Tolerated well, no immediate complications [facility] - Hematology and Cell countson 05-16-2024 HbA1c (Bld) [Mass fraction] 6.3 % [facility] No Panel Informationon 05-16 [facility] Urinalysis macro (dipstick) panel (U)on 03-07-2024 Bilirubin, UA Few Negative - 4(70) +++ mg/dL [facility] Blood, UA Positive Negative - 50 Gabriel/mcL [facility] Clarity, UA Cloudy [facility] Color, UA Straw [facility] Glucose, UA Negative Negative - 2000(110) ++++ mg/dL [facility] Interpretation and review of laboratory results Abnormal [facility] Ketones, UA Negative Negative - 160(16) ++++ mg/dL [facility] Leukocytes, UA Moderate Negative - 500+++ Luzma/mcL [facility] Nitrite, UA Negative Negative - Positive [facility] pH, UA 6.0 5 - 9 [facility] Protein, UA Trace Negative - 2000(20) ++++ mg/dL [facility] Spec Grav, UA 1.020 1 - 1.03 [facility] Urobilinogen, UA 1.0 0.2 - 12 mg/dL [...] mg Tab) fluticasone nasal (Flonase 0.05 mg/inh [place]) hydrochlorothiazide-[place] (hydrochlorothiazide-lo sartan 12.5 mg-50 mg [...] Unchanged fluticasone nasal (Flonase 0.05 mg/ inh [place]) 2 Sprays Nasal Inhalation Every day Unchanged [...] of multiple and bilateral cerebral arteries Normal [facility] General Surgery Office/Clini c Noteon 01-13-2023 [...] MIGUEL A Hawk Only if needed [address] [place] [address]- Additional Instructions: Problem List/Past Medical History Ongoing [...] tab(s), Oral, BID, PRN Flonase 0.05 mg/inh [place], 2 spray(s), Nasal, Daily hydrochlorothiazide-[place] 12.5 [...] (COVID-19) mRNA BNT-162b2 vax 07/30/2020 Recorded Normal [facility] Comment on above: Result Comment: Elec [...] mg Tab) fluticasone nasal (Flonase 0.05 mg/inh [place]) hydrochlorothiazide-[place] (hydrochlorothiazide-lo sartan 12.5 mg-50 mg Tab) metformin (metformin 500 mg Tab) rosuvastatin (Crestor 5 mg Tab) tolterodine (Detrol 2 mg Tab) Procedures Performed Repair of left inguinal hernia (12/10/2022), Rezum (04/19/2019), Circumcision, Tonsillectomy. What to do next Scheduled Follow-Up Appointments Thursday 4:00 PM EDT With: Dakota AHN MD Where: General Surgery Jimy/Yoly Redman [facility] General Surgery Office/Clini c Noteon 12-26-2022 General [...] tab(s), Oral, BID, PRN Flonase 0.05 mg/inh [place], 2 spray(s), Nasal, Daily hydrochlorothiazide-[place] 12.5 [...] mRNA BNT-162b2 vax 07/30/2020 Recorded Normal [facility] Comment on above: Result Comment: Elec tronically Signed By: JIMY BOWEN, Dakota Hoang\.br\Date and Time Signed: 12/26/22 16:45 EDT Ambulatory Visit Summaryon 0 12-17-2022 Ambulatory Visit Summary FRANKIE DE ANDA :1950 Visit Date:12/17/2022 Ambulatory Visit Instructions Your Care Team Attending Physician - NILL Dakota BOWEN Primary Care Physician - WESTON BORJA MD This Is Your Medications List aspirin (aspirin 81 mg oral tablet) carvedilol (Coreg 12.5 mg Tab) fluticasone nasal (Flonase 0.05 mg/inh [place]) hydrochlorothiazide-[place] (hydrochlorothiazide-lo sartan 12.5 mg-50 mg Tab) metformin (metformin 500 mg Tab) rosuvastatin (Crestor 5 mg Tab) tolterodine (Detrol 2 mg Tab) Procedures Performed Repair of left inguinal hernia (12/10/2022), Rezum (04/19/2019), Circumcision, Tonsillectomy. What to do next Scheduled Follow-Up Appointments Thursday 2:00 PM EDT With: Dakota AHN MD Where: General Surgery Jimy/Yoly Redman [facility] General Surgery Office/Clini c Noteon 12-17-2022 [...] tab(s), Oral, BID, PRN Flonase 0.05 mg/inh [place], 2 spray(s), Nasal, Daily hydrochlorothiazide-[place] 12.5 [...] (COVID-19) mRNA BNT-162b2 vax 07/30/2020 Recorded Normal [facility] Comment on above: Result Comment: Elec tronically Signed By: JIMY BOWEN, Dakota Aiken\Date and Time Signed: 12/17/22 15:10 EDT Operative Reporton Operative Report [id number]#1.00C D:127 Normal [facility] Consultation Noteon 12-12-19 Consultation Note [id number]#1.00C D:127 Normal [facility] Lab Reportson 07-13-2023 Lab Reports [id number]#1.00C D:127 Normal [facility] Lab Reports [id number]#1.00C D:127 [facility] Operative Reporton Operative Report [id number]#1.00C D:127 Normal [facility] Lab Reportson 12-10-2022 Lab Reports [id number]#1.00C D:127 [facility] Lab Reportson 12-03-2022 Lab Reports [id number]#1.00C D:127 [facility] Lab Reports [id number]#1.00C D:127 [facility] RAD - MISCon 12-03-2022 RAD - MISC [id number] D:127 [facility] Consent for Procedure/Surger yon 11-19-2022 Consent for Procedure/Surgery [id number]#1.00C D:127 [facility] Ambulatory Visit Summaryon 0 11-18-2022 Ambulatory Visit Summary FRANKIE DE ANDA :1950 Visit Date:11/18/2022 Ambulatory Visit Instructions Your Care Team Attending Physician - JIMY BOWEN, Dakota Hoang Primary Care Physician - JENNIFER BOWEN, WESTON Matta This Is Your Medications List aspirin (aspirin 81 mg oral tablet) carvedilol (Coreg 12.5 mg Tab) fluticasone nasal (Flonase 0.05 mg/inh [place]) hydrochlorothiazide-[place] (hydrochlorothiazide-lo sartan 12.5 mg-50 mg Tab) metformin (metformin 500 mg Tab) rosuvastatin (Crestor 5 mg Tab) tolterodine (Detrol 2 mg Tab) Procedures [facility] Circumcision, Tonsillectomy. Discharge Vitals Heart Rate [...] Unchanged fluticasone nasal (Flonase 0.05 mg/ inh [place]) 2 Sprays Nasal Inhalation Every day Unchanged [...] of multiple and bilateral cerebral arteries Normal [facility] General Surgery Office/Clini c Noteon 11-18-2022 [...] tab(s), Oral, BID, PRN Flonase 0.05 mg/inh [place], 2 spray(s), Nasal, Daily hydrochlorothiazide-[place] 12.5 [...] Father. Immuniza (more content not included)... Normal [facility] Comment on above: Result Comment: Elec tronically Signed By: JIMY BOWEN, Dakota Hoang\.br\Date and Time Signed: 11/18/22 21:01 EDT Facesheeton 10-02-2022 Facesheet [id number]#1.00C D:127 Normal [facility] Ambulatory Visit Summaryon 0 10-01-2022 Ambulatory Visit Summary FRANKIE DE ANDA :1950 Visit Date:10/01/2022 Ambulatory Visit Instructions Your Diagnosis Irreducible left inguinal hernia Your Care Team Attending Physician - JIMY BOWEN, Dakota Hoang Primary Care Physician - JENNIFER BOWEN, WESTON Matta This Is Your Medications List Contact prescribing physician if questions or concerns aspirin (aspirin 81 mg oral tablet) carvedilol (Coreg 12.5 mg Tab) fluticasone nasal (Flonase 0.05 mg/inh [place]) hydrochlorothiazide-[place] (hydrochlorothiazide-lo sartan 12.5 mg-50 mg Tab) metformin (metformin 500 mg Tab) rosuvastatin (Crestor 5 mg Tab) tolterodine (Detrol 2 mg Tab) Procedures Performed Rezu (04/19/2019), Circumcision, Tonsillectomy. Discharge Vitals Heart Rate [...] Unchanged fluticasone nasal (Flonase 0.05 mg/ inh [place]) 2 Sprays Nasal Inhalation Every day Contact [...] of multiple and bilateral cerebral arteries Normal [facility] LIPID PROFILEon 09-26-2022 CHOL-HDL RATIO NORM SEE BELOW Normal [facility] Comment on above: Result Comment: 3.3 - 4.4 LOW RISK 4.4 - 7.1 AVERAGE RISK 7.1 - 11.0 MODERATE RISK >11.0 HIGH RISK Performed By: #### A 1C #### [facility] [address] [place] [address] [address] Vicky Bustos Cholesterol [Mass/Vol] 136 mg/dL Normal <=200 [facility] Comment on above: Performed By: #### A 1C #### [facility] [address] [place] [address] [address] Vicky Bustos Cholesterol in HDL [Mass/Vol] 49 mg/dL Normal 40-60 [facility] Comment on above: Performed By: #### A 1C #### [facility] [address] [place] [address] [address] Vicky Bustos Cholesterol in LDL [Mass/Vol] 67.0 mg/dL Normal [facility] Comment on above: Performed By: #### A 1C #### [facility] [address] [place] [address] [address] Vicky Bustos Cholesterol.total/C holesterol in HDL [Mass ratio] 2.8 {ratio} Normal [facility] Comment on above: Performed By: #### A 1C #### [facility] [address] [place] [address] [address] Vicky Bustos HDL NORMAL > or = 60 mg/dl - LO W CARDIOVASCULAR RISK <40 mg/dl - HIGH CARDIOVASCULAR RISK Normal [facility] Comment on above: Performed By: #### A 1C #### [facility] [address] [place] [address] [address] Vicky Bustos LDL CALC NORMAL SEE BELOW Normal [facility] Comment on above: Result Comment: <100 mg/dl OPTIMAL 100 - 129 mg/dl NEAR OR ABOVE OPTIMAL 130 - 159 mg/dl BORDERLINE HIGH 160 - 189 mg/dl HIGH >190 mg/dl VERY HIGH Performed By: #### A 1C #### [facility] [address] [place] [address] Dr. Vicky Bustos Triglyceride [Mass/Vol] 100 mg/dL Normal <=150 [facility] Comment on above: Performed By: #### A 1C #### [facility] [address] [place] [address] [address] Vicky Bustos VLDL CALC 20.0 mg/dL Normal [facility] Comment on above: Performed By: #### A 1C #### [facility] [address] [place] [address] [address] Vicky Bustos PROF CHEM 8 (BAS METB)on Anion gap [Moles/Vol] 12.9 mmol/L Normal [facility] Comment on above: Performed By: #### A 1C #### [facility] [address] [place] [address] [address] Vicky Bustos Calcium [Mass/Vol] 9.3 mg/dL Normal 8.5-10.1 [facility] Comment on above: Performed By: #### A 1C #### [facility] [address] [place] [address] [address] Vicky Bustos Chloride [Moles/Vol] 100 mmol/L Normal 98-107 [facility] Comment on above: Performed By: #### A 1C #### [facility] [address] [place] [address] [address] Vicky Bustos CO2 [Moles/Vol] 30.7 mmol/L Normal 21.0-32.0 [facility] Comment on above: Performed By: #### A 1C #### [facility] [address] [place] [address] Dr. Vicky Bustos Creatinine [Mass/Vol] 0.93 mg/dL Normal 0.70-1.30 [facility] Comment on above: Performed By: #### A 1C #### [facility] [address] [place] [address] Dr. Vicky Bustos EGFR-AF VINCENTIAN >60 Normal >=60 [facility] Comment on above: Performed By: #### A 1C #### [facility] [address] [place] [address] Dr. Vicky Bustos EGFR-NON AF VINCENTIAN >60 Normal >=60 [facility] Comment on above: Performed By: #### A 1C #### [facility] [address] [place] [address] Dr. Vicky Bustos Glucose [Mass/Vol] 139 mg/dL Critically high 74-106 [facility] Comment on above: Performed By: #### A 1C #### [facility] [address] [place] [address] Dr. Vicky Bustos Potassium [Moles/Vol] 4.6 mmol/L Normal 3.5-5.1 [facility] Comment on above: Performed By: #### A 1C #### [facility] [address] [place] [address] Dr. Vicky Bustos Sodium [Moles/Vol] 139 mmol/L Normal 136-145 [facility] Comment on above: Performed By: #### A 1C #### [facility] [address] [place] [address] Dr. Vicky Bustos Urea nitrogen [Mass/Vol] 14.0 mg/dL Normal 7.0-18.0 [facility] Comment on above: Performed By: #### A 1C #### [facility] [address] [place] [address] Dr. Vicky Bustos Urea nitrogen/Creatinine [Mass ratio] 15.1 mg/mg Normal [facility] Comment on above: Performed By: #### A 1C #### [facility] [address] [place] [address] [address] Vicky Bustos Physician Referralon 023 Physician Referral [id number]#1.00C D:127 Normal [facility] Office Visit (Cardiology)on 09-01-2022 Follow-up visit [...] Weight Tips; Status:Complete - Retrospective Authorization; Done: [id number] Some eating tips that can help you lose weight.; Status:Complete - Retrospective Authorization; Done: 01Sep2022 Class 1 obesity with body mass index (BMI) of 31.0 to 31.9 in adult, Diabetes mellitus, Mixed hyperlipidemia, Primary hypertension, PSVT (paroxysmal supraventricular tachycardia) Basic Metabolic Panel; Status:Active - Retrospective Authorization; Requested for:[id number]; Lipid Panel; Status:Active - Retrospective Authorization; Requested for:[id number]; Primary hypertension Start: Losartan Potassium-HCTZ 50-12.5 MG Oral Tablet; TAKE 1 TABLET BY MOUTH EVERY DAY PSVT (paroxysmal supraventricular tachycardia) IO EKG Electrocardiogram- 12 Lead; Status:Complete; Done: 01Sep2022 SocHx: Never a smoker Tobacco Use Screening; Status:Complete; Done: [id number] Patient Instructions Please bring all medicines, vitamins, [...] All o (more content not included)... Normal [facility] CARDIAC GERRY 3-6on 3 CK [Catalytic activity/Vol] 134 U/L Normal 39-308 [facility] Comment on above: Performed By: #### A 1C #### [facility] [address] [place] [address] Dr. Vicky Bustos CK.MB [Mass/Vol] 1.32 ng/mL Normal <=3.60 [facility] Comment on above: Performed By: #### A 1C #### [facility] [address] [place] [address] Dr. Vicky Bustos HSTROP 7.3 pg/mL Normal 4.0-76.1 [facility] Comment on above: Result Comment: CUT- OFF POINTS HAVE BEEN ESTABLISHED BASED ON THE FOURTH UNIVERSAL DEFINITIONS OF MYOCARDIAL INFARCTION. THE UPPER REFERENCE LIMIT (URL) OF TROPONIN, DEFINED THE 99TH PERCENTILE OF cTnI DISTRIBUTION IN A REFERENCE POPULATION, HAS BEEN CONFIRMED THE DECISION THRESHOLD FOR [place] DIAGNOSIS. Performed By: #### A 1C #### [facility] [address] [place] [address] Dr. Vicky Bustos CARDIAC GERRY ADMITon 023 CK [Catalytic activity/Vol] 129 U/L Normal 39-308 [facility] Comment on above: Performed By: #### C GUILLERMINA, BMP #### [facility] [address] [place] [address] Dr. Vicky Bustos CK.MB [Mass/Vol] 1.21 ng/mL Normal <=3.60 [facility] Comment on above: Performed By: #### C GUILLERMINA, BMP #### [facility] [address] [place] [address] Dr. Vicky Bustos HSTROP 5.7 pg/mL Normal 4.0-76.1 [facility] Comment on above: Result Comment: CUT- OFF POINTS HAVE BEEN ESTABLISHED BASED ON THE FOURTH UNIVERSAL DEFINITIONS OF MYOCARDIAL INFARCTION. THE UPPER REFERENCE LIMIT (URL) OF TROPONIN, DEFINED THE 99TH PERCENTILE OF cTnI DISTRIBUTION IN A REFERENCE POPULATION, HAS BEEN CONFIRMED THE DECISION THRESHOLD FOR [place] DIAGNOSIS. Performed By: #### C GUILLERMINA, BMP #### [facility] [address] [place] [address] Dr. Vicky Bustos KOBI 92 ng/mL Normal 16-96 [facility] Comment on above: Performed By: #### C GUILLERMINA, BMP #### [facility] [address] [place] [address] Dr. Vicky Bustos CBC AUTO DIFFon 08-18-2022 BASO # 0.0 103/ul Normal 0.0-0.1 [facility] Comment on above: Performed By: #### C BC #### [facility] [address] [place] [address] Dr. Vicky Bustos Basophils/100 WBC (Bld) 0.4 % Normal 0.2-2.0 [facility] Comment on above: Performed By: #### C BC #### [facility] [address] [place] [address] Dr. Vicky Bustos EO # 0.4 103/ul Normal 0.0-0.7 [facility] Comment on above: Performed By: #### C BC #### [facility] [address] [place] [address] Dr. Vicky Bustos Eosinophils/100 WBC (Bld) 5.5 % Normal 0.9-7.0 [facility] Comment on above: Performed By: #### C BC #### [facility] [address] [place] [address] Dr. Vicky Bustos Erythrocyte distribution width (RBC) [Ratio] 13.9 % Normal 11.0-15.0 [facility] Comment on above: Performed By: #### C BC #### [facility] [address] [place] [address] Dr. Vicky Bustos Hematocrit (Bld) [Volume fraction] 41.1 % Critically low 42.0-54.0 [facility] Comment on above: Performed By: #### C BC #### [facility] [address] [place] [address] Dr. Vicky Bustos Hemoglobin (Bld) [Mass/Vol] 13.6 g/dL Critically low 14.0-18.0 [facility] Comment on above: Performed By: #### C BC #### [facility] [address] [place] [address] Dr. Vicky Bustos IG # 0.03 10e3/ul Normal 0.00-0.03 [facility] Comment on above: Performed By: #### C BC #### [facility] [address] [place] [address] Dr. Vicky Bustos IG % 0.4 % Normal 0.0-0.5 [facility] Comment on above: Performed By: #### C BC #### [facility] [address] [place] [address] Dr. Vicky Bustos LYMPH # 1.8 103/ul Normal 1.2-3.8 [facility] Comment on above: Performed By: #### C BC #### [facility] [address] [place] [address] Dr. Vicky Bustos Lymphocytes/100 WBC (Bld) 25.1 % Normal 20.5-60.0 [facility] Comment on above: Performed By: #### C BC #### [facility] [address] [place] [address] Dr. Vicky Bustos MANUAL DIFF REQ NO Normal [facility] Comment on above: Performed By: #### C BC #### [facility] [address] [place] [address] Dr. Vicky Bustos MCH (RBC) [Entitic mass] 27.4 pg Normal 25.9-34.0 [facility] Comment on above: Performed By: #### C BC #### [facility] [address] [place] [address] Dr. Vicky Bustos MCHC (RBC) [Mass/Vol] 33.1 g/dL Normal 29.9-35.2 [facility] Comment on above: Performed By: #### C BC #### [facility] [address] [address] [address] Vicky Bustos MCV (RBC) [Entitic vol] 82.7 fL Normal 80.0-94.0 [facility] Comment on above: Performed By: #### C BC #### [facility] [address] [address] [address] Vicky Bustos MONO # 0.6 103/ul Normal 0.3-0.8 [facility] Comment on above: Performed By: #### C BC #### [facility] [address] [place] [address] Dr. Vicky Bustos Monocytes/100 WBC (Bld) 8.3 % Normal 1.7-12.0 [facility] Comment on above: Performed By: #### C BC #### [facility] [address] [place] [address] Dr. Vicky Bustos NEUT # 4.3 103/ul Normal 1.4-6.5 [facility] Comment on above: Performed By: #### C BC #### [facility] [address] [place] [address] Dr. Vicky Bustos Neutrophils/100 WBC (Bld) 60.3 % Normal 43.0-75.0 [facility] Comment on above: Performed By: #### C BC #### [facility] [address] [address] [address] Vicky Bustos Platelet mean volume (Bld) [Entitic vol] 9.4 fL Critically low 9.5-13.5 [facility] Comment on above: Performed By: #### C BC #### [facility] [address] [place] [address] Dr. Vicky Bustos PLT 175 103/ul Normal 150-450 [facility] Comment on above: Performed By: #### C BC #### [facility] [address] [place] [address] Dr. Vicky Bustos RBC 4.97 106/ul Normal 4.70-6.10 [facility] Comment on above: Performed By: #### C BC #### [facility] [address] [place] [address] Dr. Vicky Bustos WBC 7.1 103/ul Normal 4.0-11.0 [facility] Comment on above: Performed By: #### C BC #### [facility] [address] [place] [address] Dr. Vicky Bustos PROF CHEM 8 (BAS METB)on Anion gap [Moles/Vol] 12.5 mmol/L Normal [facility] Comment on above: Performed By: #### C GUILLERMINA, BMP #### [facility] [address] [place] [address] Dr. Vicky Bustos Calcium [Mass/Vol] 9.0 mg/dL Normal 8.5-10.1 [facility] Comment on above: Performed By: #### C GUILLERMINA, BMP #### [facility] [address] [place] [address] Dr. Vicky Bustos Chloride [Moles/Vol] 102 mmol/L Normal 98-107 [facility] Comment on above: Performed By: #### C GUILLERMINA, BMP #### [facility] [address] [place] [address] Dr. Vicky Bustos CO2 [Moles/Vol] 27.3 mmol/L Normal 21.0-32.0 [facility] Comment on above: Performed By: #### C GUILLERMINA, BMP #### [facility] [address] [place] [address] Dr. Vicky Bustos Creatinine [Mass/Vol] 0.78 mg/dL Normal 0.70-1.30 [facility] Comment on above: Performed By: #### C GUILLERMINA, BMP #### [facility] [address] [place] [address] Dr. Vicky Bustos EGFR-AF VINCENTIAN >60 Normal >=60 [facility] Comment on above: Performed By: #### C GUILLERMINA, BMP #### [facility] [address] [place] [address] Dr. Vicky Bustos EGFR-NON AF VINCENTIAN >60 Normal >=60 [facility] Comment on above: Performed By: #### C GUILLERMINA, BMP #### [facility] [address] [address] [address] Vicky Bustos Glucose [Mass/Vol] 160 mg/dL Critically high 74-[address] [facility] Comment on above: Performed By: #### C GUILLERMINA, BMP #### [facility] [address] [address] [address] Vicky Bustos Potassium [Moles/Vol] 3.8 mmol/L Normal 3.5-5.1 [facility] Comment on above: Performed By: #### C GUILLERMINA, BMP #### [facility] [address] [place] [address] Dr. Vicky Bustos Sodium [Moles/Vol] 138 mmol/L Normal 136-145 [facility] Comment on above: Performed By: #### C GUILLERMINA, BMP #### [facility] [address] [place] [address] Dr. Vicky Bustos Urea nitrogen [Mass/Vol] 12.0 mg/dL Normal 7.0-18.0 [facility] Comment on above: Performed By: #### C GUILLERMINA, BMP #### [facility] [address] [place] [address] Dr. Vicky Bustos Urea nitrogen/Creatinine [Mass ratio] 15.4 mg/mg Normal [facility] Comment on above: Performed By: #### C GUILLERMINA, BMP #### [facility] [address] [place] [address] Dr. Vicky Bustos XR CHEST 1 Von [...] by: KALEB LIRA Date: 2022-08-17 22:51 Normal [facility] ECHOCARDIO M/2D COMPLETEon 0 08-01-2022 ECHOCARDIO M/2D COMPLETE Patient: FRANKIE DE ANDA Exam Date: 08/01/2022 : 1950 Gender:M Ordering : DR WESTON BORJA M.D. Admission #: [id number] Family : Order #: [id number] CLICK HERE TO VIEW EXAM ECHOCARDIOGRAM REPORT PROCEDURE: CARDIO PULMONARY ECHOCARDIO M/2D COMP INDICATIONS: Cardiac murmur, [place], hypertension, diabetes COMPARISON: None. DESCRIPTION: COMPLETE ECHOCARDIOGRAM [...] M.D. on 08/07/2022 at 09:19 Normal [facility] CBC AUTO DIFFon 07-19-2022 BASO # 0.0 103/ul Normal 0.0-0.1 [facility] Comment on above: Performed By: #### C BC #### [facility] [address] [address] [address] Vicky Bustos Basophils/100 WBC (Bld) 0.4 % Normal 0.2-2.0 [facility] Comment on above: Performed By: #### C BC #### [facility] [address] [address] [address] Vicky Bustos EO # 0.2 103/ul Normal 0.0-0.7 [facility] Comment on above: Performed By: #### C BC #### [facility] [address] [address] [address] Vicky Bustos Eosinophils/100 WBC (Bld) 3.9 % Normal 0.9-7.0 [facility] Comment on above: Performed By: #### C BC #### [facility] [address] [address] [address] Vicky Bustos Erythrocyte distribution width (RBC) [Ratio] 14.3 % Normal 11.0-15.0 [facility] Comment on above: Performed By: #### C BC #### [facility] [address] [place] [address] Dr. Vicky Bustos Hematocrit (Bld) [Volume fraction] 38.1 % Critically low 42.0-54.0 [facility] Comment on above: Performed By: #### C BC #### [facility] [address] [place] [address] Dr. Vicky Bustos Hemoglobin (Bld) [Mass/Vol] 12.6 g/dL Critically low 14.0-18.0 [facility] Comment on above: Performed By: #### C BC #### [facility] [address] [place] [address] Dr. Vicky Bustos IG # 0.05 10e3/ul Critically high 0.00-0.03 [facility] Comment on above: Performed By: #### C BC #### [facility] [address] [place] [address] Dr. Vicky Bustos IG % 0.9 % Critically high 0.0-0.5 [facility] Comment on above: Performed By: #### C BC #### [facility] [address] [place] [address] Dr. Vicky Bustos LYMPH # 0.9 103/ul Critically low 1.2-3.8 [facility] Comment on above: Performed By: #### C BC #### [facility] [address] [place] [address] Dr. Vicky Bustos Lymphocytes/100 WBC (Bld) 16.3 % Critically low 20.5-60.0 [facility] Comment on above: Performed By: #### C BC #### [facility] [address] [place] [address] Dr. Vicky Bustos MANUAL DIFF REQ NO Normal [facility] Comment on above: Performed By: #### C BC #### [facility] [address] [address] [address] Vicky Bustos MCH (RBC) [Entitic mass] 27.2 pg Normal 25.9-34.0 [facility] Comment on above: Performed By: #### C BC #### [facility] [address] [address] [address] Vicky Bustos MCHC (RBC) [Mass/Vol] 33.1 g/dL Normal 29.9-35.2 [facility] Comment on above: Performed By: #### C BC #### [facility] [address] [address] [address] Vicky Bustos MCV (RBC) [Entitic vol] 82.3 fL Normal 80.0-94.0 [facility] Comment on above: Performed By: #### C BC #### [facility] [address] [place] [address] Dr. Vicky Bustos MONO # 0.9 103/ul Critically high 0.3-0.8 [facility] Comment on above: Performed By: #### C BC #### [facility] [address] [address] [address] Vicky Bustos Monocytes/100 WBC (Bld) 16.7 % Critically high 1.7-12.0 [facility] Comment on above: Performed By: #### C BC #### [facility] [address] [place] [address] Dr. Vicky Bustos NEUT # 3.5 103/ul Normal 1.4-6.5 [facility] Comment on above: Performed By: #### C BC #### [facility] [address] [place] [address] Dr. Vicky Bustos Neutrophils/100 WBC (Bld) 61.8 % Normal 43.0-75.0 [facility] Comment on above: Performed By: #### C BC #### [facility] [address] [place] [address] Dr. Vicky Bustos Platelet mean volume (Bld) [Entitic vol] 9.0 fL Critically low 9.5-13.5 [facility] Comment on above: Performed By: #### C BC #### [facility] [address] [place] [address] Dr. Vicky Bustos PLT 136 103/ul Critically low 150-450 [facility] Comment on above: Performed By: #### C BC #### [facility] [address] [place] [address] Dr. Vicky Bustos RBC 4.63 106/ul Critically low 4.70-6.10 [facility] Comment on above: Performed By: #### C BC #### [facility] [address] [place] [address] Dr. Vicky Bustos WBC 5.6 103/ul Normal 4.0-11.0 [facility] Comment on above: Performed By: #### C BC #### [facility] [address] [place] [address] Dr. Vicky Bustos ER URINE PROFILEon 3 Bilirubin Ql (U) Negative Normal NEGATIVE [facility] Comment on above: Performed By: #### E RUR #### [facility] [address] [place] [address] Dr. Vicky Bustos Clarity (U) CLEAR Normal CLEAR [facility] Comment on above: Performed By: #### E RUR #### [facility] [address] [place] [address] Dr. Vicky Bustos Color (U) LT. YELLOW Normal YELLOW [facility] Comment on above: Performed By: #### E RUR #### [facility] [address] [place] [address] Dr. Vicky BORREGO A micrscopic examination will be performed if indicated. Normal [facility] Comment on above: Performed By: #### E RUR #### [facility] [address] [place] [address] Dr. Vicky Bustos Glucose Ql (U) Negative Normal NEGATIVE [facility] Comment on above: Performed By: #### E RUR #### [facility] [address] [place] [address] Dr. Vicky Bustos Hemoglobin Ql (U) SMALL Abnormal NEGATIVE [facility] Comment on above: Performed By: #### E RUR #### [facility] [address] [place] [address] Dr. Vicky Bustos Ketones Ql (U) Negative Normal NEGATIVE [facility] Comment on above: Performed By: #### E RUR #### [facility] [address] [place] [address] Dr. Vicky Bustos LEUKOCYTES Negative Normal NEGATIVE [facility] Comment on above: Performed By: #### E RUR #### [facility] [address] [place] [address] Dr. Vicky Bustos Nitrite Ql (U) Negative Normal NEGATIVE [facility] Comment on above: Performed By: #### E RUR #### [facility] [address] [place] [address] Dr. Vicky Bustos pH (U) 5.5 [pH] Normal 5-9 [facility] Comment on above: Performed By: #### E RUR #### [facility] [address] [place] [address] Dr. Vicky Bustos SPEC GRAVITY 1.025 Normal 1.005-<=1.025 [facility] Comment on above: Performed By: #### E RUR #### [facility] [address] [place] [address] Dr. Vicky Bustos UA PROTEIN TRACE Normal NEGATIVE/ TRACE [facility] Comment on above: Performed By: #### E RUR #### [facility] [address] [place] [address] Dr. Vicky Bustos UR MICRO IND NOT INDICATED Normal [facility] Comment on above: Performed By: #### E RUR #### [facility] [address] [place] [address] Dr. Vicky Bustos Urobilinogen Qn (U) 0.2 {Troy'U}/dL Normal 0.2 - 1. 0 [facility] Comment on above: Performed By: #### E RUR #### [facility] [address] [place] [address] Dr. Vicky Bustos PROF CHEM 8 (BAS METB)on Anion gap [Moles/Vol] 13.3 mmol/L Normal [facility] Comment on above: Performed By: #### B MP #### [facility] [address] [address] [address] Vicky Bustos Calcium [Mass/Vol] 8.6 mg/dL Normal 8.5-10.1 [facility] Comment on above: Performed By: #### B MP #### [facility] [address] [address] [address] Vicky Bustos Chloride [Moles/Vol] 98 mmol/L Normal 98-107 [facility] Comment on above: Performed By: #### B MP #### [facility] [address] [place] [address] Dr. Vicky Bustos CO2 [Moles/Vol] 24.9 mmol/L Normal 21.0-32.0 [facility] Comment on above: Performed By: #### B MP #### [facility] [address] [address] [address] Vicky Bustos Creatinine [Mass/Vol] 1.00 mg/dL Normal 0.70-1.30 [facility] Comment on above: Performed By: #### B MP #### [facility] [address] [place] [address] Dr. Vicky Bustos EGFR-AF VINCENTIAN >60 Normal >=60 [facility] Comment on above: Performed By: #### B MP #### [facility] [address] [address] [address] Vicky Bustos EGFR-NON AF VINCENTIAN >60 Normal >=60 [facility] Comment on above: Performed By: #### B MP #### [facility] [address] [address] [address] Vicky Bustos Glucose [Mass/Vol] 215 mg/dL Critically high 74-[address] [facility] Comment on above: Performed By: #### B MP #### [facility] [address] [place] [address] Dr. Vicky Bustos Potassium [Moles/Vol] 4.2 mmol/L Normal 3.5-5.1 [facility] Comment on above: Performed By: #### B MP #### [facility] [address] [address] [address] Vicky Bustos Sodium [Moles/Vol] 132 mmol/L Critically low 136-145 [facility] Comment on above: Performed By: #### B MP #### [facility] [address] [place] [address] Dr. Vicky Bustos Urea nitrogen [Mass/Vol] 11.0 mg/dL Normal 7.0-18.0 [facility] Comment on above: Performed By: #### B MP #### [facility] [address] [place] [address] Dr. Vicky Bustos Urea nitrogen/Creatinine [Mass ratio] 11.0 mg/mg Normal [facility] Comment on above: Performed By: #### B MP #### [facility] [address] [place] [address] Dr. Vicky Bustos RESPIRATORY PANEL PLUSon Adenovirus Not detected Normal NOT DETECTED [facility] Comment on above: Performed By: #### R SPLUS #### [facility] [address] [place] [address] Dr. Vicky Vigil Parapertusis Not detected Normal NOT DETECTED [facility] Comment on above: Performed By: #### R SPLUS #### [facility] [address] [place] [address] Dr. Vicky Vigil Pertussis Not detected Normal NOT DETECTED [facility] Comment on above: Performed By: #### R SPLUS #### [facility] [address] [place] [address] Dr. Vicky Bustos Chlamydia Pneumoniae Not detected Normal NOT DETECTED [facility] Comment on above: Performed By: #### R SPLUS #### [facility] [address] [place] [address] Dr. Vicky Bustos Coronavirus 229E Not detected Normal NOT DETECTED [facility] Comment on above: Performed By: #### R SPLUS #### [facility] [address] [place] [address] Dr. Vicky Bustos Coronavirus HKU1 Not detected Normal NOT DETECTED [facility] Comment on above: Performed By: #### R SPLUS #### [facility] [address] [address] [address] Vicky Bustos Coronavirus NL63 Not detected Normal NOT DETECTED [facility] Comment on above: Performed By: #### R SPLUS #### [facility] [address] [place] [address] Dr. Vicky Bustos Coronavirus OC43 Not detected Normal NOT DETECTED [facility] Comment on above: Performed By: #### R SPLUS #### [facility] [address] [address] [address] Vicky Bustos Influenza A H1 Not detected Normal NOT DETECTED [facility] Comment on above: Performed By: #### R SPLUS #### [facility] [address] [place] [address] Dr. Vicky Bustos Influenza A H1 2009 Not detected Normal NOT DETECTED [facility] Comment on above: Performed By: #### R SPLUS #### [facility] [address] [place] [address] Dr. Vicky Bustos Influenza A H3 Not detected Normal NOT DETECTED [facility] Comment on above: Performed By: #### R SPLUS #### [facility] [address] [place] [address] Dr. Vicky Bustos Influenza B Not detected Normal NOT DETECTED [facility] Comment on above: Performed By: #### R SPLUS #### [facility] [address] [place] [address] Dr. Vicky Bustos Metapneumovirus Not detected Normal NOT DETECTED [facility] Comment on above: Performed By: #### R SPLUS #### [facility] [address] [address] [address] Vicky Bustos Mycoplas. Pneumoniae Not detected Normal NOT DETECTED [facility] Comment on above: Performed By: #### R SPLUS #### [facility] [address] [place] [address] Dr. Vicky Bustos Parainfluenza 1 Not detected Normal NOT DETECTED [facility] Comment on above: Performed By: #### R SPLUS #### [facility] [address] [place] [address] Dr. Vicky Bustos Parainfluenza 2 Not detected Normal NOT DETECTED [facility] Comment on above: Performed By: #### R SPLUS #### [facility] [address] [place] [address] Dr. Vicky Bustos Parainfluenza 3 Not detected Normal NOT DETECTED [facility] Comment on above: Performed By: #### R SPLUS #### [facility] [address] [place] [address] Dr. Vicky Bustos Parainfluenza 4 Not detected Normal NOT DETECTED [facility] Comment on above: Performed By: #### R SPLUS #### [facility] [address] [place] [address] Dr. Vicky Bustos Rhino/Enterovirus Not detected Normal NOT DETECTED [facility] Comment on above: Performed By: #### R SPLUS #### [facility] [address] [place] [address] Dr. Vicky Bustos RP2 Header 1 RESPIRATORY PANEL: VIRUSES Normal [facility] Comment on above: Performed By: #### R SPLUS #### [facility] [address] [place] [address] Dr. Vicky Bustos RP2 Header 2 RESPIRATORY PANEL: BACTERIA Normal [facility] Comment on above: Performed By: #### R SPLUS #### [facility] [address] [place] [address] Dr. Vicky Bustos RSV Not detected Normal NOT DETECTED [facility] Comment on above: Performed By: #### R SPLUS #### [facility] [address] [place] [address] Dr. Vicky Bustos SARS-CoV-2 (COVID-19) RNA JEFF+probe Ql (Unsp spec) Detected Abnormal NOT DETECTED [facility] Comment on above: Performed By: #### R SPLUS #### [facility] [address] [place] [address] Dr. Vicky Bustos PSA, FREE AND TOTAL RATIOon 08-17-2022 % Free PSA 28.5 % Normal [facility] Comment on above: Result Comment: The [...] men. Performed By: #### A 1C #### [facility] [address] [place] [address] Dr. Vicky Bustos Prostate specific Ag [Mass/Vol] 1.3 ng/mL Normal 0.0-4.0 [facility] Comment on above: Result Comment: [employer] ECLIA methodology. . According to the [place] [employer], Serum PSA should decrease and [...] disease. Performed By: #### A 1C #### [facility] [address] [address] [address] Vicky Bustos PSA, Free 0.37 ng/mL Normal N/A [facility] Comment on above: Result Comment: [employer] ECLIA methodology. Performed By: #### A 1C #### [facility] [address] [address] [address] Vicky Bustos CBC AUTO DIFFon 01-14-2022 BASO # 0.1 103/ul Normal 0.0-0.1 [facility] Comment on above: Performed By: #### C BC #### [facility] [address] [address] [address] Vicky Bustos Basophils/100 WBC (Bld) 0.7 % Normal 0.2-2.0 [facility] Comment on above: Performed By: #### C BC #### [facility] [address] [place] [address] Dr. Vicky Bustos EO # 0.5 103/ul Normal 0.0-0.7 [facility] Comment on above: Performed By: #### C BC #### [facility] [address] [place] [address] Dr. Vicky Bustos Eosinophils/100 WBC (Bld) 6.8 % Normal 0.9-7.0 [facility] Comment on above: Performed By: #### C BC #### [facility] [address] [place] [address] Dr. Vicky Bustos Erythrocyte distribution width (RBC) [Ratio] 13.9 % Normal 11.0-15.0 [facility] Comment on above: Performed By: #### C BC #### [facility] [address] [place] [address] Dr. Vicky Bustos Hematocrit (Bld) [Volume fraction] 44.6 % Normal 42.0-54.0 [facility] Comment on above: Performed By: #### C BC #### [facility] [address] [place] [address] Dr. Vicky Bustos Hemoglobin (Bld) [Mass/Vol] 14.7 g/dL Normal 14.0-18.0 [facility] Comment on above: Performed By: #### C BC #### [facility] [address] [place] [address] Dr. Vicky Bustos IG # 0.04 10e3/ul Critically high 0.00-0.03 [facility] Comment on above: Performed By: #### C BC #### [facility] [address] [place] [address] Dr. Vicky Bustos IG % 0.6 % Critically high 0.0-0.[address] [facility] Comment on above: Performed By: #### C BC #### [facility] [address] [place] [address] Dr. Vicky Bustos LYMPH # 2.5 103/ul Normal 1.2-3.8 [facility] Comment on above: Performed By: #### C BC #### [facility] [address] [place] [address] Dr. Vicky Bustos Lymphocytes/100 WBC (Bld) 35.8 % Normal 20.5-60.0 [facility] Comment on above: Performed By: #### C BC #### [facility] [address] [place] [address] Dr. Vicky Bustos MANUAL DIFF REQ NO Normal [facility] Comment on above: Performed By: #### C BC #### [facility] [address] [place] [address] Dr. Vicky Bustos MCH (RBC) [Entitic mass] 27.7 pg Normal 25.9-34.0 [facility] Comment on above: Performed By: #### C BC #### [facility] [address] [place] [address] Dr. Vicky Bustos MCHC (RBC) [Mass/Vol] 33.0 g/dL Normal 29.9-35.2 [facility] Comment on above: Performed By: #### C BC #### [facility] [address] [place] [address] Dr. Vicky Bustos MCV (RBC) [Entitic vol] 84.0 fL Normal 80.0-94.0 [facility] Comment on above: Performed By: #### C BC #### [facility] [address] [place] [address] Dr. Vicky Bustos MONO # 0.5 103/ul Normal 0.3-0.8 [facility] Comment on above: Performed By: #### C BC #### [facility] [address] [place] [address] Dr. Vicky Bustos Monocytes/100 WBC (Bld) 7.3 % Normal 1.7-12.0 [facility] Comment on above: Performed By: #### C BC #### [facility] [address] [place] [address] Dr. Vicky Bustos NEUT # 3.4 103/ul Normal 1.4-6.5 [facility] Comment on above: Performed By: #### C BC #### [facility] [address] [address] [address] Vicky Bustos Neutrophils/100 WBC (Bld) 48.8 % Normal 43.0-75.0 [facility] Comment on above: Performed By: #### C BC #### [facility] [address] [address] [address] Vicky Bustos Platelet mean volume (Bld) [Entitic vol] 8.6 fL Critically low 9.5-13.5 [facility] Comment on above: Performed By: #### C BC #### [facility] [address] [address] [address] Vicky Bustos PLT 205 103/ul Normal 150-450 [facility] Comment on above: Performed By: #### C BC #### [facility] [address] [place] [address] Dr. Vicky Bustos RBC 5.31 106/ul Normal 4.70-6.10 [facility] Comment on above: Performed By: #### C BC #### [facility] [address] [address] [address] Vicky Bustos WBC 7.0 103/ul Normal 4.0-11.0 [facility] Comment on above: Performed By: #### C BC #### [facility] [address] [address] [address] Vicky Bustos GLYCOHEMOGLOBIN A1Con 2021 ADA RECOMMENDATION SEE BELOW Normal [facility] Comment on above: Result Comment: ADA RECOMMENDED LIMIT 4.0 - 6.0 ADA THERAPEUTIC TARGET < 7.0 ACTION SUGGESTED > 7.0 Performed By: #### A 1C #### [facility] [address] [address] [address] Vicky Bustos Glucose [Mass/Vol] 148 mg/dL Normal [facility] Comment on above: Performed By: #### A 1C #### [facility] [address] [place] [address] Dr. Vicky Bustos HbA1c (Bld) [Mass fraction] 6.8 % Critically high 4.5-6.2 [facility] Comment on above: Performed By: #### A 1C #### [facility] [address] [address] [address] Vicky Bustos LIPID PROFILEon 01-14-2022 CHOL-HDL RATIO NORM SEE BELOW Normal [facility] Comment on above: Result Comment: 3.3 - 4.4 LOW RISK 4.4 - 7.1 AVERAGE RISK 7.1 - 11.0 MODERATE RISK >11.0 HIGH RISK Performed By: #### A 1C #### [facility] [address] [address] [address] Vicky Bustos Cholesterol [Mass/Vol] 237 mg/dL Critically high <=200 [facility] Comment on above: Performed By: #### A 1C #### [facility] [address] [address] [address] Vicky Bustos Cholesterol in HDL [Mass/Vol] 54 mg/dL Normal 40-60 [facility] Comment on above: Performed By: #### A 1C #### [facility] [address] [address] [address] Vicky Bustos Cholesterol in LDL [Mass/Vol] 161.6 mg/dL Normal [facility] Comment on above: Performed By: #### A 1C #### [facility] [address] [address] [address] Vicky Bustos Cholesterol.total/C holesterol in HDL [Mass ratio] 4.4 {ratio} Normal [facility] Comment on above: Performed By: #### A 1C #### [facility] [address] [address] [address] Vicky Bustos HDL NORMAL > or = 60 mg/dl - LO W CARDIOVASCULAR RISK <40 mg/dl - HIGH CARDIOVASCULAR RISK Normal [facility] Comment on above: Performed By: #### A 1C #### [facility] [address] [address] [address] Vicky Bustos LDL CALC NORMAL SEE BELOW Normal [facility] Comment on above: Result Comment: <100 mg/dl OPTIMAL 100 - 129 mg/dl NEAR OR ABOVE OPTIMAL 130 - 159 mg/dl BORDERLINE HIGH 160 - 189 mg/dl HIGH >190 mg/dl VERY HIGH Performed By: #### A 1C #### [facility] [address] [address] [address] Vicky Bustos Triglyceride [Mass/Vol] 107 mg/dL Normal <=150 [facility] Comment on above: Performed By: #### A 1C #### [facility] [address] [address] [address] Vicky Bustos VLDL CALC 21.4 mg/dL Normal [facility] Comment on above: Performed By: #### A 1C #### [facility] [address] [place] [address] Dr. Vicky Bustos PROF 14(COMP METB)on 022 Albumin [Mass/Vol] 3.8 g/dL Normal 3.4-5.0 [facility] Comment on above: Performed By: #### A 1C #### [facility] [address] [place] [address] Dr. Vicky Bustos Albumin/Globulin [Mass ratio] 1.0 {ratio} Normal [facility] Comment on above: Performed By: #### A 1C #### [facility] [address] [place] [address] Dr. Vicky Bustos ALP [Catalytic activity/Vol] 77 U/L Normal 46-116 [facility] Comment on above: Performed By: #### A 1C #### [facility] [address] [place] [address] Dr. Vicky Bustos ALT [Catalytic activity/Vol] 17 U/L Normal 16-63 [facility] Comment on above: Performed By: #### A 1C #### [facility] [address] [place] [address] Dr. Vicky Bustos Anion gap [Moles/Vol] 12.2 mmol/L Normal [facility] Comment on above: Performed By: #### A 1C #### [facility] [address] [place] [address] Dr. Vicky Bustos AST [Catalytic activity/Vol] 13 U/L Critically low 15-37 [facility] Comment on above: Performed By: #### A 1C #### [facility] [address] [place] [address] Dr. Vicky Bustos Bilirubin [Mass/Vol] 1.0 mg/dL Normal 0.2-1.0 [facility] Comment on above: Performed By: #### A 1C #### [facility] [address] [address] [address] Vicky Bustos Calcium [Mass/Vol] 8.7 mg/dL Normal 8.5-10.1 [facility] Comment on above: Performed By: #### A 1C #### [facility] [address] [address] [address] Vicky Bustos Chloride [Moles/Vol] 100 mmol/L Normal 98-107 [facility] Comment on above: Performed By: #### A 1C #### [facility] [address] [address] [address] Vicky Bustos CO2 [Moles/Vol] 27.1 mmol/L Normal 21.0-32.0 [facility] Comment on above: Performed By: #### A 1C #### [facility] [address] [address] [address] Vicky Bustos Creatinine [Mass/Vol] 0.92 mg/dL Normal 0.70-1.30 [facility] Comment on above: Performed By: #### A 1C #### [facility] [address] [place] [address] Dr. Vicky Bustos EGFR-AF VINCENTIAN >60 Normal >=60 [facility] Comment on above: Performed By: #### A 1C #### [facility] [address] [address] [address] Vicky Bustos EGFR-NON AF VINCENTIAN >60 Normal >=60 [facility] Comment on above: Performed By: #### A 1C #### [facility] [address] [address] [address] Vicky Bustos Globulin (S) [Mass/Vol] 3.9 g/dL Normal [facility] Comment on above: Performed By: #### A 1C #### [facility] [address] [address] [address] Vicky Bustos Glucose [Mass/Vol] 120 mg/dL Critically high 74-[address] [facility] Comment on above: Performed By: #### A 1C #### [facility] [address] [address] [address] Vicky Bustos Potassium [Moles/Vol] 4.3 mmol/L Normal 3.5-5.1 [facility] Comment on above: Performed By: #### A 1C #### [facility] [address] [address] [address] Vicky Bustos Protein [Mass/Vol] 7.7 g/dL Normal 6.4-8.2 [facility] Comment on above: Performed By: #### A 1C #### [facility] [address] [address] [address] Vicky Bustos Sodium [Moles/Vol] 135 mmol/L Critically low 136-145 [facility] Comment on above: Performed By: #### A 1C #### [facility] [address] [address] [address] Vicky Bustos Urea nitrogen [Mass/Vol] 18.0 mg/dL Normal 7.0-18.0 [facility] Comment on above: Performed By: #### A 1C #### [facility] [address] [place] [address] Dr. Vicky Bustos Urea nitrogen/Creatinine [Mass ratio] 19.6 mg/mg Normal [facility] Comment on above: Performed By: #### A 1C #### [facility] [address] [place] [address] Dr. Vicky Bustos Covid-19 PCR (CVDTB)on 11-30 SARS-CoV-2 (COVID-19) RNA JEFF+probe Ql (Unsp spec) Not detected Normal NOT DETECTED [facility] Comment on above: Result Comment: This test is not yet approved or cleared by the [place] FDA. When there are no FDA-approved or cleared tests available, and other criteria are met, FDA can make tests available under an emergency access mechanism called an Emergency Use Authorization (EUA). The EUA for this test is supported by the Siding Applicator of Health and Human Service's (HHS's) declaration [...] consistent with SARS-CoV-2. Performed By: #### [facility] #### [facility] [address] [address] [address] Vicky Bustos US carotid doppler BIon 10-30 US carotid doppler BI [facility] [place] [address] Ultrasound Report Signed Patient: Frankie De Anda MR#: [id number] : 1950 Acct:[id number] Age/Sex: 71 / M ADM Date: 11/12/21 Loc: [facility] Room: Type: [facility] Attending Dr: Melchor Mondragon MD Ordering Provider: [...] Melchor Mondragon M.D.11/12/2021 1:08 PM Dictation Location: [place] [address] Tech: Jaye Matos Transcribed By: STAN 11/12/21 1308 Dictated By: Melchor Mondragon MD 11/12/21 1308 Signed By: 11/12/21 1308 [facility] Vital Signs Date Time Vital Sign Value Performing Clinician Facility 10-17-2024 [id number] Body height 165.1 cm Weston Borja MD Work Phone: [facility] 10-17-2024 14:17-0400 Body mass index (BMI) [Ratio] 34.45 kg/m2 Weston Borja MD Work Phone: [facility] 10-17-2024 14:17-0400 Body weight 93.89 kg Weston Borja MD Work Phone: [facility] 10-17-2024 14:17-0400 Diastolic blood pressure 86 mm[Hg] Weston Borja MD Work Phone: [facility] 10-17-2024 14:17-0400 Heart rate 75 /min Weston Borja MD Work Phone: [facility] 10-17-2024 14:17-0400 SaO2% (BldA) [Mass fraction] 97 % Weston Borja MD Work Phone: [facility] 10-17-2024 14:17-0400 Systolic blood pressure 138 mm[Hg] Weston Borja MD Work Phone: [facility] 10-12-2024 13:50-0400 Body height 165.1 cm Tita Hemmer PA Work Phone: [facility] 10-12-2024 13:50-0400 Body mass index (BMI) [Ratio] 34.25 kg/m2 Tita Hemmer PA Work Phone: [facility] 10-12-2024 13:50-0400 Body weight 93.35 kg Tita Hemmer PA Work Phone: [facility] 10-12-2024 13:50-0400 Diastolic blood pressure 88 mm[Hg] Tita Hemmer PA Work Phone: [facility] 10-12-2024 13:50-0400 Heart rate 83 /min Tita Hemmer PA Work Phone: [facility] 10-12-2024 13:50-0400 Respiratory rate 16 /min Tita Hemmer PA Work Phone: [facility] 10-12-2024 13:50-0400 SaO2% (BldA) [Mass fraction] 97 % Tita Hemmer PA Work Phone: [facility] 10-12-2024 13:50-0400 Systolic blood pressure 136 mm[Hg] Tita Hemmer PA Work Phone: [facility] 08-22-2024 13:59-0400 Body height 165.1 cm Weston Borja MD Work Phone: [facility] 08-22-2024 13:59-0400 Body mass index (BMI) [Ratio] 34.28 kg/m2 Weston Borja MD Work Phone: [facility] 08-22-2024 13:59-0400 Body weight 93.44 kg Weston Borja MD Work Phone: [facility] 08-22-2024 13:59-0400 Diastolic blood pressure 90 mm[Hg] Weston Borja MD Work Phone: [facility] 08-22-2024 13:59-0400 Heart rate 73 /min Weston Borja MD Work Phone: [facility] 08-22-2024 13:59-0400 SaO2% (BldA) [Mass fraction] 100 % Weston Borja MD Work Phone: [facility] 08-22-2024 13:59-0400 Systolic blood pressure 156 mm[Hg] Weston Borja MD Work Phone: [facility] 07-18-2024 14:23-0500 Body mass index (BMI) [Ratio] 34.68 kg/m2 Weston Borja MD Work Phone: [facility] 07-18-2024 14:23-0500 Body weight 94.53 kg Weston Borja MD Work Phone: [facility] 07-18-2024 14:23-0500 Diastolic blood pressure 95 mm[Hg] Weston Borja MD Work Phone: [facility] 07-18-2024 14:23-0500 Heart rate 68 /min Weston Borja MD Work Phone: [facility] 07-18-2024 14:23-0500 Respiratory rate 20 /min Weston Borja MD Work Phone: [facility] 07-18-2024 14:23-0500 SaO2% (BldA) [Mass fraction] 99 % Weston Borja MD Work Phone: [facility] 07-18-2024 14:23-0500 Systolic blood pressure 165 mm[Hg] Weston Borja MD Work Phone: [facility] 06-29-2024 15:40-0500 Diastolic blood pressure 96 mm[Hg] Tita Hemmer PA Work Phone: [facility] 06-29-2024 15:40-0500 Systolic blood pressure 162 mm[Hg] Tita Hemmer PA Work Phone: [facility] 06-29-2024 15:01-0500 Body height 165.1 cm Tita Hemmer PA Work Phone: [facility] 06-29-2024 15:01-0500 Body mass index (BMI) [Ratio] 34.85 kg/m2 Tita Hemmer PA Work Phone: [facility] 06-29-2024 15:01-0500 Body temperature 98.2 [degF] Tita Hemmer PA Work Phone: [facility] 06-29-2024 15:01-0500 Body weight 94.98 kg Tita Hemmer PA Work Phone: [facility] 06-29-2024 15:01-0500 Heart rate 72 /min Tita Hemmer PA Work Phone: [facility] 06-29-2024 15:01-0500 Respiratory rate 16 /min Tita Hemmer PA Work Phone: [facility] 06-29-2024 15:01-0500 SaO2% (BldA) [Mass fraction] 97 % Tita Hemmer PA Work Phone: [facility] 05-16-2024 15:26-0500 Body height 165.1 cm Weston Borja MD Work Phone: [facility] 05-16-2024 15:26-0500 Body mass index (BMI) [Ratio] 35.11 kg/m2 Weston Borja MD Work Phone: [facility] 05-16-2024 15:26-0500 Body weight 95.71 kg Weston Borja MD Work Phone: [facility] 05-16-2024 15:26-0500 Diastolic blood pressure 78 mm[Hg] Weston Borja MD Work Phone: [facility] 05-16-2024 15:26-0500 Heart rate 74 /min Weston Borja MD Work Phone: [facility] 05-16-2024 15:26-0500 SaO2% (BldA) [Mass fraction] 97 % Weston Borja MD Work Phone: [facility] 05-16-2024 15:26-0500 Systolic blood pressure 130 mm[Hg] Weston Borja MD Work Phone: [facility] 03-14-2024 13:43-0400 Body height 165.1 cm Weston Borja MD Work Phone: [facility] 03-14-2024 13:43-0400 Body mass index (BMI) [Ratio] 34.28 kg/m2 Weston Borja MD Work Phone: [facility] 03-14-2024 13:43-0400 Body weight 93.44 kg Weston Borja MD Work Phone: [facility] 03-14-2024 13:43-0400 Diastolic blood pressure 84 mm[Hg] Weston Borja MD Work Phone: [facility] 03-14-2024 13:43-0400 Heart rate 86 /min Weston Borja MD Work Phone: [facility] 03-14-2024 13:43-0400 SaO2% (BldA) [Mass fraction] 99 % Weston Borja MD Work Phone: [facility] 03-14-2024 13:43-0400 Systolic blood pressure 134 mm[Hg] Weston Borja MD Work Phone: [facility] 12-08-2023 13:16-0400 Body height 170.18 cm [facility] 12-08-2023 13:16-0400 Body mass index (BMI) [Ratio] 31.3 kg/m2 [facility] 12-08-2023 13:16-0400 Body temperature 96.7 [degF] [facility] 12-08-2023 13:16-0400 Body weight 90.71 kg [facility] 12-08-2023 13:16-0400 Diastolic blood pressure 80 mm[Hg] [facility] 12-08-2023 13:16-0400 Heart rate 74 /min [facility] 12-08-2023 13:16-0400 SaO2% (BldA) [Mass fraction] 97 % [facility] 12-08-2023 13:16-0400 Systolic blood pressure 142 mm[Hg] [facility] 11-18-2022 15:35-0400 Blood Pressure Location [facility] 11-18-2022 15:35-0400 Diastolic blood pressure 90 mm[Hg] [facility] 11-18-2022 15:35-0400 Heart rate 76 /min [facility] 11-18-2022 15:35-0400 Respiratory rate 16 /min [facility] 11-18-2022 15:35-0400 Systolic blood pressure 128 mm[Hg] [facility] 10-01-2022 14:14-0400 Blood Pressure Location [facility] 10-01-2022 14:14-0400 Diastolic blood pressure 78 mm[Hg] [facility] 10-01-2022 14:14-0400 Heart rate 70 /min [facility] 10-01-2022 14:14-0400 Respiratory rate 16 /min [facility] 10-01-2022 14:14-0400 Systolic blood pressure 128 mm[Hg] [facility] 11-12-2021 14:00-0400 Body height 167.64 cm Judith Gibson Other [facility] Other 11-12-2021 14:00-0400 Body mass index (BMI) [Ratio] 30.66 kg/m2 Judith Gibson Other [facility] Other 11-12-2021 14:00-0400 Body temperature 98 [degF] Judith Gibson Other [facility] Other 11-12-2021 14:00-0400 Body weight 86.18 kg Judith Gibson Other [facility] Other 11-12-2021 14:00-0400 Diastolic blood pressure 80 mm[Hg] Judith Gibson Other [facility] Other 11-12-2021 14:00-0400 Respiratory rate 18 /min Judith Gibson Other [facility] Other 11-12-2021 14:00-0400 SaO2% (BldA) [Mass fraction] 98 % Judith Gibson Other [facility] Other 11-12-2021 14:00-0400 Systolic blood pressure 134 mm[Hg] Judith Gibson Other [facility] Other Encounters Encounter Date Encounter Type Care Provider Facility Start: 12-26-2024 End: 12-26-2024 Telephone encounter Weston Borja MD Work Phone: [facility] Comment on above: Med Refill Start: 12-01-2024 End: 12-01-2024 Bamboo flowsheet Weston Borja MD Work Phone: [facility] Start: 12-01-2024 End: 12-01-2024 Bamboo flowsheet Weston Borja MD Work Phone: [facility] Start: 10-17-2024 End: 10-17-2024 Assay of hemosiderin, quant Weston Borja MD Work Phone: [facility] Work Phone: Start: 10-17-2024 End: 10-17-2024 Patient encounter procedure Weston Borja MD Work Phone: [facility] Comment on above: Routine general medi chula examination at health care facility (Primary Dx); ACP (advance care planning); 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, without long-term current use of insulin, unspecified laterality (CMS/HCC); Essential (primary) hypertension (CMS/HCC); Chronic fatigue Start: 10-17-2024 End: 10-17-2024 ambulatory WESTON BORJA Not Available Start: 10-17-2024 End: 10-17-2024 Bamboo flowsheet Weston Borja MD Work Phone: [facility] Start: 10-17-2024 End: 10-17-2024 Bamboo flowsheet Weston Borja MD Work Phone: [facility] Start: 10-12-2024 End: 10-12-2024 Bamboo flowsheet Tita Westbrook PA Work Phone: [facility] Start: 10-12-2024 End: 10-12-2024 Bamboo flowsheet Tita Westbrook PA Work Phone: [facility] Start: 10-12-2024 End: 10-12-2024 Office outpatient visit 15 minutes Tita Westbrook PA Work Phone: [facility] Comment on above: Dysfunction of right eustachian tube (Primary Dx) Start: 10-12-2024 End: 10-12-2024 ambulatory TITA WESTBROOK Not Available Start: 08-22-2024 End: 08-22-2024 Bamboo flowsheet Weston Borja MD Work Phone: [facility] Start: 08-22-2024 End: 08-22-2024 Bamboo flowsheet Weston Borja MD Work Phone: [facility] Start: 08-22-2024 End: 08-22-2024 Office outpatient visit 25 minutes Weston Borja MD Work Phone: [facility] Comment on above: Acute sinusitis, rec urrence not specified, unspecified location (Primary Dx); Primary hypertension (CMS/HCC); Diabetic peripheral neuropathy (CMS/HCC) Start: 08-22-2024 End: 08-22-2024 ambulatory WESTON BORJA Not Available Start: 07-22-2024 End: 07-22-2024 Bamboo flowsheet Weston Borja MD Work Phone: [facility] Start: 07-22-2024 End: 07-22-2024 Bamboo flowsheet Weston Borja MD Work Phone: [facility] Start: 07-22-2024 End: 07-22-2024 ambulatory WESTON BORJA Not Available Start: 07-18-2024 End: 07-18-2024 Office outpatient visit 25 minutes Weston Borja MD Work Phone: [facility] Comment on above: Primary hypertension (CMS/HCC) (Primary Dx); Diabetic peripheral neuropathy (CMS/HCC); Idiopathic progressive neuropathy Start: 07-18-2024 End: 07-18-2024 Bamboo flowsjeffry Borja MD Work Phone: [facility] Start: 07-18-2024 End: 07-18-2024 Bamboo flowsheet Weston Borja MD Work Phone: [facility] Start: 07-18-2024 End: 07-18-2024 ambulatory WESTON BORJA Not Available Start: 06-29-2024 End: 06-29-2024 Office outpatient visit 15 minutes Tita Westbrook PA Work Phone: [facility] Comment on above: Primary hypertension (CMS/HCC) (Primary Dx); Bilateral impacted cerumen; Nasal congestion; Epistaxis Start: 06-29-2024 End: 06-29-2024 ambulatory TITA WESTBROOK Not Available Start: 06-29-2024 End: 06-29-2024 Bamboo flowsheet Tita Westbrook PA Work Phone: [facility] Start: 06-29-2024 End: 06-29-2024 Bamboo flowsheet Tita Westbrook PA Work Phone: [facility] Start: 05-16-2024 [...] right carotid artery; Coronary artery disease involving [place] coronary artery of [place] heart without angina pectoris (CMS/HCC) Start: 05-16-2024 End: 05-16-2024 ambulatory WESTON BORJA Not Available Start: 05-16-2024 End: 05-16-2024 Bamboo flowsjeffry Borja MD Work Phone: [facility] Start: 05-16-2024 End: 05-16-2024 Bamboo flowsheet Weston Borja MD Work Phone: [facility] Start: 04-19-2024 End: 04-19-2024 ambulatory Sybil Garcia [employer] [facility] Comment on above: 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); Low back pain, unspecified back pain laterality, unspecified chronicity, unspecified whether sciatica present; Degeneration of intervertebral disc of lumbar region, unspecified whether pain present Start: 04-19-2024 End: 04-19-2024 Bamboo flowsheet Sybil Garcia FINANCIAL ADMINISTRATOR [facility] Start: 04-19-2024 End: 04-19-2024 Bamboo flowsheet Sybil Brink FINANCIAL ADMINISTRATOR [facility] Start: 04-14-2024 End: 04-14-2024 ambulatory Sybil Brink FINANCIAL ADMINISTRATOR [facility] Comment on above: 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); Low back pain, unspecified back pain laterality, unspecified chronicity, unspecified whether sciatica present; Degeneration of intervertebral disc of lumbar region, unspecified whether pain present Start: 04-14-2024 End: 04-14-2024 Bamboo flowsheet Sybil Brink FINANCIAL ADMINISTRATOR [facility] Start: 04-14-2024 End: 04-14-2024 Bamboo flowsheet Sybil Brink FINANCIAL ADMINISTRATOR [facility] Start: 04-12-2024 End: 04-12-2024 ambulatory Sybil Brink FINANCIAL ADMINISTRATOR [facility] Comment on above: 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); Low back pain, unspecified back pain laterality, unspecified chronicity, unspecified whether sciatica present; Degeneration of intervertebral disc of lumbar region, unspecified whether pain present Start: 04-12-2024 End: 04-12-2024 Bamboo flowsheet Sybil Brink FINANCIAL ADMINISTRATOR [facility] Start: 04-12-2024 End: 04-12-2024 Bamboo flowsheet Sybil Brink FINANCIAL ADMINISTRATOR [facility] Start: 04-07-2024 End: 04-07-2024 Bamboo flowsheet Sybil Brink FINANCIAL ADMINISTRATOR [facility] Start: 04-07-2024 End: 04-07-2024 Bamboo flowsheet Sybil Brink FINANCIAL ADMINISTRATOR [facility] Start: 04-07-2024 End: 04-07-2024 ambulatory Sybil Brink FINANCIAL ADMINISTRATOR [facility] Comment on above: 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); Low back pain, unspecified back pain laterality, unspecified chronicity, unspecified whether sciatica present; Degeneration of intervertebral disc of lumbar region, unspecified whether pain present Start: 04-05-2024 End: 04-06-2024 ambulatory Sybil Brink FINANCIAL ADMINISTRATOR [facility] Comment on above: 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); Low back pain, unspecified back pain laterality, unspecified chronicity, unspecified whether sciatica present; Degeneration of intervertebral disc of lumbar region, unspecified whether pain present Start: 04-05-2024 End: 04-05-2024 Bamboo flowsheet Sybil Garcia FINANCIAL ADMINISTRATOR [facility] Start: 04-05-2024 End: 04-05-2024 Bamboo flowsheet Sybil Garcia FINANCIAL ADMINISTRATOR [facility] Start: 03-31-2024 End: 03-31-2024 ambulatory Clarisa Siddiqui FINANCIAL ADMINISTRATOR [facility] Comment on above: 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); Low back pain, unspecified back pain laterality, unspecified chronicity, unspecified whether sciatica present; Degeneration of intervertebral disc of lumbar region, unspecified whether pain present Start: 03-31-2024 End: 03-31-2024 Bamboo flowsheet Clarisa Siddiqui FINANCIAL ADMINISTRATOR [facility] Start: 03-31-2024 End: 03-31-2024 Bamboo flowsheet Clarisa Siddiqui FINANCIAL ADMINISTRATOR [facility] Start: 03-29-2024 End: 03-29-2024 [...] Start: 03-23-2024 End: 03-24-2024 ambulatory Sybil Garcia FINANCIAL ADMINISTRATOR [facility] Comment on above: 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); Low back pain, unspecified back pain laterality, unspecified chronicity, unspecified whether sciatica present; Degeneration of intervertebral disc of lumbar region, unspecified whether pain present Start: 03-23-2024 End: 03-23-2024 Bamboo flowsheet Sybil Garcia FINANCIAL ADMINISTRATOR [facility] Start: 03-23-2024 End: 03-23-2024 Bamboo flowsheet Sybil Garcia FINANCIAL ADMINISTRATOR [facility] Start: 03-15-2024 End: 03-15-2024 ambulatory Alexis T Diana PT Work Phone: [facility] Comment [...] Dysuria Start: 03-07-2024 End: 03-07-2024 ambulatory TITA WESTBROOK Not Available Start: 03-03-2024 End: 03-03-2024 ambulatory Sybil Garcia FINANCIAL ADMINISTRATOR [facility] Comment on above: 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); Low back pain, unspecified back pain laterality, unspecified chronicity, unspecified whether sciatica present Start: 03-03-2024 End: 03-03-2024 Bamboo flowsheet Sybil Brink FINANCIAL ADMINISTRATOR [facility] Start: 03-03-2024 End: 03-03-2024 Bamboo flowsheet Sybil Brink FINANCIAL ADMINISTRATOR [facility] Start: 02-25-2024 End: 02-25-2024 Bamboo flowsheet Sybil Brink FINANCIAL ADMINISTRATOR [facility] Start: 02-25-2024 End: 02-25-2024 Bamboo flowsheet Sybil Penaink FINANCIAL ADMINISTRATOR [facility] Start: 02-25-2024 End: 02-25-2024 ambulatory Sybil Garcia FINANCIAL ADMINISTRATOR [facility] Comment on above: Degenerative disc di sease, lumbar (Primary Dx); Low back pain, unspecified back pain laterality, unspecified chronicity, unspecified whether sciatica present Start: 02-22-2024 End: 02-22-2024 Bamboo flowsheet Sybil Brink FINANCIAL ADMINISTRATOR [facility] Start: 02-22-2024 End: 02-22-2024 Bamboo flowsheet Sybil Penaink FINANCIAL ADMINISTRATOR [facility] Start: 02-22-2024 End: 02-22-2024 ambulatory Sybil Garcia FINANCIAL ADMINISTRATOR [facility] Comment on above: Degenerative [...] present Start: 12-10-2023 End: 12-10-2023 ambulatory WESTON BORJA Not Available Start: 12-08-2023 End: 12-08-2023 Patient encounter procedure [facility] Vascular Surgery Work Phone: Start: 2023 Chart abstracting Rosales haro MD Work Phone: [facility] Start: 01-20-2023 Rx Renewal Weston Borja Work Phone: [facility] 250 DO Work Phone: Start: 01-13-2023 End: 01-14-2023 ambulatory Dakota R NILL Facility: [facility] Start: 01-13-2023 End: 01-13-2023 Patient encounter procedure Dakota R NILL General Surgery Nill/Said [facility] Start: 12-26-2022 End: 12-27-2022 ambulatory Dakota R NILL Facility: [facility] Start: 12-26-2022 End: 12-26-2022 Patient encounter procedure Dakota R NILL General Surgery Nill/S[facility] Start: 12-17-2022 End: 12-18-2022 ambulatory Dakota R NILL Facility:[facility] Start: 12-17-2022 End: 12-17-2022 Patient encounter procedure Dakota R NILL General Surgery Nill/Said [facility] Start: 12-10-2022 End: 12-11-2022 ambulatory Dakota R NILL Facility:[id number] Start: 11-18-2022 End: 11-19-2022 ambulatory Dakota R NILL Facility:[facility] Start: 11-18-2022 End: 11-18-2022 Patient encounter procedure Dakota R NILL General Surgery Nill/Said [facility] Start: 10-01-2022 End: 10-02-2022 ambulatory Dakota R NILL Facility:[facility] Start: 10-01-2022 End: 10-01-2022 Patient encounter procedure Dakota R NILL General Surgery Nill/[facility] Start: 09-26-2022 End: 09-27-[address] WESTON BORJA Facility:[facility] Start: 09-12-2022 ambulatory [facility]ORJA [facility] Start: 09-01-2022 ambulatory Weston Borja II Facility:[id number] Start: 08-17-2022 End: 08-18-2022 ambulatory LEONARD ESPITIA Facility:[facility] Start: 08-02-2022 End: 08-03-[address] WESTON BORJA Facility:[facility] Start: 07-19-2022 End: 07-19-2022 ambulatory LEONARD ESPITIA Facility:[facility] Start: 07-18-2022 End: 07-18-[address] WESTON BORJA Facility:[facility] Start: 01-15-2022 Encounter for genera l adult medical examination without abnormal findings FRANKIE IRBY [facility] Start: 01-14-2022 End: 01-15-2022 ambulatory FRANKIE IRBY Facility:[facility] Start: 01-14-2022 End: 01-15-2022 Encounter for general adult medical examination without abnormal findings FRANKIE IRBY Facility:[facility] Start: 12-25-2021 End: 12-25-2021 ambulatory FRANKIE IRBY Facility:[facility] Start: 11-12-2021 End: 11-12-2021 ambulatory Judith Gibson Other [facility] Other Start: 11-12-2021 Follow-up encounter Judith Restrepo PG Vascular Surgery Procedures Date Procedure Procedure Detail Performing Clinician Start: 10-17-2024 Hemoglobin glycosyla maude a1c Weston Borja MD Work Phone: Start: 06-29-2024 Removal impacted cer umen instrumentation unilat Tita DERAS Work Phone: Start: 05-16-2024 Hemoglobin glycosyla maude a1c Weston Borja MD Work Phone: Start: 03-07-2024 Urnls dip stick/tabl et rgnt non-auto w/o micrscp Weston Borja MD Work Phone: Start: 12-10-2022 Repair of left ingui nal hernia [facility] Start: 04-19-2019 Rezum [facility] LEES LL Circumcision [facility] Circumcision Weston Borja Work Phone: Introduction of cath eter into carotid artery Weston Borja Work Phone: Tonsillectomy [facility] Tonsillectomy and adenoidectomy Weston Borja Work Phone: NEGATED: Highlighted row has not occurred! Total colonoscopy Weston Borja Work Phone: Plan of Treatment Date Care Activity Detail Author Start: 05-26-2026 Screening for malignant neoplasm of colon [facility] Start: 10-17-2025 Medicare Annual Wellness (AWV) Medicare Annual Wellness (AWV) [facility] Start: 05-16-2025 Medicare Annual Wellness (AWV) Medicare Annual Wellness (AWV) [facility] Start: 05-16-2025 Pneumococcal Vaccine: 65+ Years (1 of 2 - PCV) Pneumococcal Vaccine: 65+ Years (1 of 2 - PCV) [facility] Comment on above: Postponed from 1954 (Patient Refus ed) Postponed from 07/06 (Patient Refused) Start: 01-30-2025 Influenza vaccination [facility] Start: 01-17-2025 Hemoglobin A1c measurement Diabetes: Hemoglobin A1C [facility] Start: 12-01-2024 End: 12-01-2024 Patient encounter procedure 12/01/2024 11:30 AM EDT Office Visit [facility] [address] [facility] [address] [place] [id number] Weston Borja MD [address] [facility] [address] [place] [address] Arrived [facility] Comment on above: Arrived Start: 10-17-2024 End: 10-17-2024 Patient encounter procedure [facility] Comment on above: Arrived Start: 10-17-2024 End: 10-17-2025 Cortisol Cortisol Lab Routine Chronic fatigue Expected: 10/17/2024 (Approximate), Expires: 10/17/2025 [facility] Comment on above: Expected: 10/17/2024 (Approximate), Expi res: 10/17/2025 Start: 10-17-2024 End: 10-17-2025 Testosterone, total and free Testosterone, total and free Lab Routine Chronic fatigue Expected: 10/17/2024 (Approximate), Expires: 10/17/2025 [facility] Comment on above: Expected: 10/17/2024 (Approximate), Expi res: 10/17/2025 Start: 10-17-2024 End: 10-17-2025 Thyrotropin [Units/volume] in Serum or Plasma TSH Lab Routine Chronic fatigue Expected: 10/17/2024 (Approximate), Expires: 10/17/2025 [facility] Comment on above: Expected: 10/17/2024 (Approximate), Expi res: 10/17/2025 Start: 10-17-2024 End: 10-17-2025 Thyroxine (T4) free [Mass/volume] in Serum or Plasma T4, free Lab Routine Chronic fatigue Expected: 10/17/2024 (Approximate), Expires: 10/17/2025 [facility] Work Phone: Comment on above: Expected: 10/17/2024 (Approximate), Expi res: 10/17/2025 Start: 10-17-2024 End: 10-17-2025 Triiodothyronine (T3) Free [Mass/volume] in Serum or Plasma T3, free Lab Routine Chronic fatigue Expected: 10/17/2024 (Approximate), Expires: 10/17/2025 [facility] Comment on above: Expected: 10/17/2024 (Approximate), Expi res: 10/17/2025 Start: 10-12-2024 End: 10-12-2024 Patient encounter procedure 10/12/2024 2:00 PM EDT Office Visit [facility] [address] [place] [address] Tita Westbrook PA [address] [place] [address] Arrived [facility] Comment on above: Arrived Start: 08-22-2024 End: 08-22-2024 Patient encounter procedure 08/22/2024 2:00 PM EDT Office Visit [facility] [address] [place] [address] Weston Borja MD [address] [place] [address] Arrived [facility] Comment on above: Arrived Start: 08-14-2024 Hemoglobin A1c measurement Diabetes: Hemoglobin A1C [facility] Start: 07-22-2024 End: 07-22-2024 Patient encounter procedure 07/22/2024 10:15 AM EST Office Visit [facility] [address] [place] [address] Weston Borja MD [address] [place] [address] [facility] Start: 07-18-2024 End: 07-18-2024 Patient encounter procedure 07/18/2024 2:30 PM EST Office Visit [facility] [address] [place] [address] Weston Borja MD [address] [place] [address] Arrived [facility] Comment on above: Arrived Start: 07-17-2024 Urine screening for protein Diabetes: Urine Protein Screening [facility] Start: 07-11-2024 Influenza vaccination Influenza Vaccine (#1) [facility] Comment on above: Postponed from 01/31/2024 (Patient Refus ed) Start: 06-29-2024 End: 06-29-2024 Patient encounter procedure 06/29/2024 3:00 PM EST Office Visit [facility] [address] [place] [address] Tita Westbrook PA [address] [place] [address] Arrived [facility] Comment on above: [...] hypertension (CMS/HCC) Expected: 05/16/2024 (Approximate), Expires: 05/16/2025 [facility] Comment on above: Expected: 05/16/2024 (Approximate), Expi res: 05/16/2025 Start: 05-16-2024 End: 05-16-2025 Lipid 1996 panel - Serum or Plasma Lipid panel Lab Routine 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, without long-term current use of insulin, unspecified laterality (CMS/HCC) Elevated cholesterol (CMS/HCC) Expected: 05/16/2024 (Approximate), Expires: 05/16/2025 [facility] Comment on above: Expected: 05/16/2024 (Approximate), Expi res: 05/16/2025 Start: 05-16-2024 End: 05-16-2025 TSH W/REFLEX TO FT4 TSH W/REFLEX TO FT4 Lab Routine 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, without long-term current use of insulin, unspecified laterality (CMS/HCC) Expected: 05/16/2024 (Approximate), Expires: 05/16/2025 [facility] Comment on above: Expected: 05/16/2024 (Approximate), Expi res: 05/16/2025 Start: 04-22-2024 Medicare Annual Wellness (AWV) Medicare Annual Wellness (AWV) [facility] Start: 04-20-2024 End: 04-20-2024 Patient encounter procedure 04/20/2024 2:00 PM EST Office Visit [facility] [address] [place] [address] Joaquín Ghosh, [address] [place] [address] [facility] Start: 04-19-2024 End: 04-19-2024 ambulatory [facility] Comment on above: Arrived Start: 04-14-2024 End: 04-14-2024 ambulatory 04/14/2024 2:30 PM EST Treatment [facility] [address] [place] [address] Sybil Garcia, FINANCIAL ADMINISTRATOR [facility] Start: 04-12-2024 End: 04-12-2024 ambulatory 04/12/2024 3:30 PM EST Treatment [facility] [address] [place] [address] Sybil Garcia, FINANCIAL ADMINISTRATOR [facility] Start: 04-07-2024 End: 04-07-2024 ambulatory [facility] Comment on above: Arrived Start: 04-06-2024 Glaucoma screening Diabetes: Retinopathy Screening [facility] Start: 04-05-2024 End: 04-05-2024 ambulatory 04/05/2024 3:30 PM EST Treatment [facility] [address] [place] [address] Sybil Garcia, FINANCIAL ADMINISTRATOR [facility] Start: 03-31-2024 End: 03-31-2024 ambulatory 03/31/2024 3:30 PM EDT Treatment [facility] [address] [place] [address] Clarisa Siddiqui, FINANCIAL ADMINISTRATOR [facility] Start: 03-29-2024 End: 03-29-2024 ambulatory 03/29/2024 2:30 PM EDT Treatment [facility] [address] [place] [address] Alexis Ortiz, PT [address] [place] [address] [facility] Start: 03-23-2024 End: 03-23-2024 ambulatory 03/23/2024 4:00 PM EDT Treatment [facility] [address] [place] [address] Sybil Garcia PTA Arrived [facility] Comment on above: Arrived Start: 03-17-2024 End: 03-17-2024 ambulatory 03/17/2024 2:30 PM EDT Treatment [facility] [address] [place] [address] Sybil Garcia PTA [facility] Start: 03-15-2024 End: 03-15-2024 ambulatory 03/15/2024 2:30 PM EDT Treatment [facility] [address] [place] [address] Alexis Ortiz, PT [address] [place] [address] [facility] Start: 03-14-2024 End: 03-14-2024 Patient encounter procedure 03/14/2024 1:45 PM EDT Office Visit [facility] [address] [place] [address] Weston Borja MD [address] [place] [address] Arrived [facility] Comment on above: Arrived Start: 03-10-2024 End: 03-10-2024 ambulatory 03/10/2024 2:30 PM EDT Treatment [facility] [address] [place] [address] Brink, Sybil, FINANCIAL ADMINISTRATOR [facility] Start: 03-08-2024 End: 03-08-2024 ambulatory [facility] Start: 03-03-2024 End: 03-03-2024 ambulatory 03/03/2024 2:30 PM EDT Treatment [facility] [address] [place] [address] Sybil Garcia FINANCIAL ADMINISTRATOR [facility] Start: 03-01-2024 End: 03-01-2024 ambulatory 03/01/2024 2:30 PM EDT Treatment [facility] [address] [place] [address] Alexis Oritz, PT [address] [place] [address] [facility] Start: 02-25-2024 End: 02-25-2024 ambulatory 02/25/2024 1:30 PM EDT Treatment [facility] [address] [place] [address] Sybil Garcia FINANCIAL ADMINISTRATOR [facility] Start: 02-22-2024 End: 02-22-2024 ambulatory 02/22/2024 2:00 PM EDT Treatment [facility] [address] [place] [address] Sybil Garcia FINANCIAL ADMINISTRATOR [facility] Start: 01-31-2024 Influenza vaccination Influenza Vaccine (#1) [facility] Start: 01-28-2024 Hemoglobin A1c measurement Diabetes: Hemoglobin A1C [facility] Start: 11-29-2023 Influenza vaccination Influenza Vaccine (#1) [facility] Comment on above: Postponed from 01/30/2023 (Patient Refus ed) Start: 10-28-2023 End: 10-28-2023 Patient encounter procedure 10/28/2023 2:15 PM EDT Office Visit [facility] [address] [place] [address] Weston Borja MD [address] [place] [address] [facility] Start: 09-29-2023 Hemoglobin A1c measurement Diabetes: Hemoglobin A1C [facility] Start: 2023 End: 2023 Patient encounter procedure 2023 3:20 PM EST Office Visit [facility] [address] [address] [place] [address] Rosales Palomino MD [address] [address] [facility] Start: 06-03-2023 FUV, Provider: Cosmo Diaz, Status: Pen, Time: 2:00 PM FUV, Provider: Cosmo Diaz, Status: Pen, Time: 2:00 PM [facility] 250 DO Work Phone: Start: 1967 Urine screening for protein Diabetes: Urine Protein Screening [facility] Start: 1954 Pneumococcal Vaccine: 65+ Years (1 - PCV) Pneumococcal Vaccine: 65+ Years (1 - PCV) [facility] Start: 1954 Pneumococcal Vaccine: 65+ Years (1 of 2 - PCV) Pneumococcal Vaccine: 65+ Years (1 of 2 - PCV) [facility] Start: 1948 Screening for malignant neoplasm of colon [facility] CBC W Auto Different ial panel - Blood CBC and differential Lab Routine Coronary artery disease involving [place] coronary artery of [place] heart without angina pectoris (CMS/HCC) Ordered: 05/16/2024 [facility] Work Phone: Comment on above: Ordered: 05/16/2024 Prostate specific Ag [Mass/volume] in Serum or Plasma PSA Lab Routine Prostate cancer screening Ordered: 05/16/2024 [facility] Comment on above: Ordered: 05/16/2024 .doppler Carotid arteries - bilateral [facility] Immunizations Immunization Date Immunization Notes Care Provider Fa haley 03-12-2021 SARS-CoV-2 (COVID-19) mRNA BNT-162b2 carolax [facility] General Surgery [facility] 08-21-2020 SARS-CoV-2 (COVID-19) mRNA BNT-162b2 vax [facility] 07-30-2020 SARS-CoV-2 (COVID-19) mRNA BNT-162b2 vax [facility] NEGATED: Highlighted row has not occurred! 7 pneumococcal polysaccharide vaccine, 23 valent Patient Objection Judith Gibson Other [facility] [employer] Other NEGATED: Highlighted row has not occurred! 7 influenza, seasonal, injectable Patient Objection Judith Gibson Other [facility] Other Payers Date Payer Category Payer Medicare (Managed Care) [facility] [email or web address] [id number] 2009 Medicare [id number] 1959 Medicare [id number] 2.16.840.1.383717.19 1959 Medicare [id number] 1959 Medicare [id number] 1959 Medicare [id number] 1959 Unknown [id number] 1948 Unknown [id number] 2.16.840.1.349807.3.579.2. 356 1948 Unknown [id number] 07.17.840.1.594596.3.579.2. 593 1948 Unknown [id number] 2.16.840.1.791620.3.579.2. 593 1948 Unknown [id number] 2.16.840.1.193796.3.579.2. 593 1948 Unknown [id number] 2.16.840.1.231282.3.579.2. 593 1948 Unknown [id number] 2.16.840.1.792093.3.579.2. 593 1948 Unknown [id number] 2.16.840.1.346151.3.579.2. 593 1948 Unknown [id number] 2.16.840.1.846052.3.579.2. 593 1948 Unknown [id number] 2.16.840.1.814171.3.579.2. 727 1948 Unknown [id number] 2.16.840.1.263108.3.579.2. 727 1948 Unknown [id number] 2.16.840.1.865262.3.579.2. 727 1948 Unknown [id number] 2.16.840.1.763666.3.579.2. 727 1948 Unknown [id number] 2.16.840.1.941664.3.579.2. 727 1948 Unknown [id number] 2.16.840.1.662075.3.579.2. 727 1948 Unknown [id number] 2.16.840.1.746975.3.579.2. 727 1948 Unknown [id number] 2.16.840.1.966898.3.579.2. 727 1948 Unknown [id number] 2.16.840.1.565682.3.579.2. 1259 -05-1951 Unknown [id number] 2.16.840.1.542781.3.579.2. 1258 1948 Unknown [id number] 2.16.840.1.592477.3.579.2. 1258 1948 Unknown [id number] 2.16.840.1.525092.3.579.2. 1258 1948 Unknown [id number] 2.16840.1.464315.3.579.2. 1258 1948 Unknown [id number] 2.840.1.207049.3.579.2. 1258 1948 Unknown [id number] 2.840.1.331289.3.579.2. 1258 1948 Unknown [id number] 2.840.1.869269.3.579.2. 1258 1948 Unknown [id number] 2.840.1.305086.3.579.2. 1258 1948 Unknown [id number] 2.840.1.727015.3.579.2. 1258 1948 Unknown [id number] 2.840.1.893666.3.579.2. 1258 1948 Unknown [id number] 2.840.1.594392.3.579.2. 1258 1948 Unknown [id number] 2.840.1.284155.3.579.2. 1258 1948 Unknown [id number] 2.16840.1.078272.3.579.2. 1258 1948 Unknown [id number] 2.16840.1.049821.3.579.2. 1258 1948 Unknown [id number] 2.16840.1.967394.3.579.2. 1258 1948 Unknown [id number] 2.16.840.1.088835.3.579.2. 9 1948 Unknown [id number] 2.16.840.1.203995.3.579.2. 9 1948 Unknown [id number] 2.16.840.1.993437.3.579.2. 1258 1948 Unknown [id number] 2.16.840.1.095456.3.579.2. 1258 1948 Unknown [id number] 2.16.840.1.603107.3.579.2. 1258 1948 Unknown [id number] 2.16.840.1.161248.3.579.2. 1258 1948 Unknown [id number] 2.16.840.1.995931.3.579.2. 1258 Self-pay Self Pay [id number] Unknown Social History Date Type Detail Facility Unknown if ever smoked Doorm[facility]. [facility] Other Start: 07-01-2023 End: 12-01-2024 [facility]igned At [facility] Start: 10-01-2022 End: 01-14-2023 Tobacco smoking status Never smoked tobacco (finding) [facility] Tobacco smoking status Never General Surgery [facility] Start: 07-01-2023 End: 12-01-2024 Social alcohol use Social alcohol use [facility] [address] DO Work Phone: Start: 01-14-2023 Tobacco use and exposure Smokeless tobacco non-user [facility] Start: 07-01-2023 End: 12-01-2024 Alcohol intake Ex-drinker (finding) [facility] Start: 03-28-2023 Alcohol Comment caffeine: yes [facility] Start: 1950 Sex Assigned At Male [facility] Start: 02-09-2023 Gender identity Identifies as male gender (finding) [facility] Functional Status Date Assessment Result Facility 10-17-2024 Patient Health Quest ionnaire 2 item (PHQ-2) [Reported] [facility] 10-12-2024 Patient Health Quest ionnaire 2 item (PHQ-2) [Reported] [facility] 11-18-2022 Functional Status N/A [facility] 10-01-2022 Functional Status N/A [facility] Clinical Notes 11-12-2021 to 12-26-2024 Telephone Encounter - Weston Borja MD - 12/26/2024 2:17 PM EDTTelephone Encounter - Weston Borja MD - 12/26/2024 2:17 PM EDTTelephone Encounter - Heather Najera - 12/26/2024 11:59 AM EDT Note Date & Type Note Facility 12-26-2024 Telephone encounter Note Rx was sent. [facility] 12-26-2024 Miscellaneous Notes Rx was sent. pregabalin (Lyrica) he said its usually 75 but he wondered if he could do 100 mg instead. Ca rodas documented in this encounter [facility] 12-26-2024 Telephone encounter Note pregabalin (Lyrica) he said its usually 75 but he wondered if he could do 100 mg instead. [facility] 10-17-2024 History of Presen t illness Narrative Images from the original note were not included. Subjective : Chief Complaint: Frankie De Anda is an 74 y.o. male here for an annual wellness visit. I have reviewed and reconciled the history and medication list with the patient today. Current Outpatient Medications Medication Sig Dispense Refill carvedilol (Coreg) 12.5 MG tablet TAKE 1 TABLET TWICE DAILY 180 tablet 3 fluticasone (Flonase) 50 MCG/ACT nasal spray SPRAY 2 SPRAYS INTO EACH NOSTRIL EVERY DAY 16 mL 3 glimepiride (Amaryl) 2 MG tablet TAKE 1 TABLET EVERY DAY 90 tablet 3 loratadine (Claritin) 10 MG tablet Take 1 tablet (10 mg) by mouth Daily for 10 days 10 tablet 0 losartan-hydroCHLOROthiazide (Hyzaar) 50-12.5 MG tablet Take 1 tablet by mouth Daily predniSONE (Deltasone) 10 MG tablet Take 1 tablet (10 mg) by mouth 3 (three) times a day for 3 days, THEN 1 tablet (10 mg) 2 (two) times a day for 3 days, THEN 1 tablet (10 mg) Daily for 3 days. 18 tablet 0 rosuvastatin (Crestor) 5 MG tablet TAKE 1 TABLET AT BEDTIME 90 tablet 3 tamsulosin (Flomax) 0.4 MG 24 hr capsule Take 1 capsule (0.4 mg) by mouth Daily 30 capsule 11 No current facility-administered medications for this visit. Review of Systems List of current healthcare providers: Patient Care Team: Weston Borja MD as PCP - General (Internal Medicine) Frankie Irby DO as PCP - [employer] Annual Visit Over the past 2 [...] taxes?: Yes Cognitive Screening Three Word Registration: Apple WatchLani Clock Drawing: Normal Clock - 2 Three Word Recall: 2/3 words correct - 2 Total Score (0-5 Points): 4 Pain Assessment Pain Score: 7 Advance Care Planning Do you have a living will?: Yes Do you have a medical power of privacy attorney?: Yes Who is your medical power of privacy attorney?: sister Objective : BP 138/86 Pulse 75 Ht 5' 5 Wt 207 lb SpO2 97% BMI 34.45 kg/m No results found. Physical Exam Constitutional: General: He is not in acute distress. Appearance: He is normal weight. He is not ill-appearing. HENT: Head: Normocephalic. Nose: Congestion present. Cardiovascular: Rate and Rhythm: Normal rate and regular rhythm. Heart sounds: Normal heart sounds. No murmur heard. Pulmonary: Effort: Pulmonary effort is normal. Breath sounds: Normal breath sounds. Musculoskeletal: General: No swelling. Right lower leg: No edema. Left lower leg: No edema. Neurological: Mental Status: He is alert. Psychiatric: Mood and Affect: Mood normal. Thought Content: Thought content normal. Judgment: Judgment normal. Assessment/Plan : The following health maintenance schedule was reviewed with the patient and provided in printed form in the after visit summary: Health Maintenance Topic Date Due Diabetes: Retinopathy Screening 04/06/2024 Diabetes: Urine Protein Screening 07/17/2024 Diabetes: Hemoglobin A1C 08/14/2024 Pneumococcal Vaccine: 65+ Years (1 of 2 - PCV) 05/16/2025 (Originally 1969) Influenza Vaccine (Season Ended) 2025 Medicare Annual Wellness (AWV) 05/16/2025 Colorectal Cancer Screening Discontinued Advance Care Planning Assessment/Plan Diagnoses and all orders for this visit: Routine general medical examination at health care facility ACP (advance care planning) 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 No orders of the defined types were placed in this encounter. Electronically signed by Weston Borja MD on October 17, 2024 documented in this encounter [facility] 10-12-2024 History of Presen t illness Narrative Images from the original note were not included. Subjective Patient ID: Frankie De Anda is a 74 y.o. male who presents for buzzing in ear. Frankie is present today for evaluation of buzzing in his right ear. Admits about 1 1/2 months ago he came in for his ear to be cleaned d/t wax build up and then about a week later the buzzing came back again. Feels like an echo when he talks. It is just in the right ear that hears the buzzing. Did try Benadryl for several days and it has not helped this time, has helped occasionally in the past. Also has some popping going on in his right ear. Uses the Flonase routinely, two sprays in each nostril. Hasn't had a hearing test in a long time. Current Outpatient Medications on File Prior to Visit Medication Sig Dispense Refill carvedilol (Coreg) 12.5 MG tablet TAKE 1 TABLET TWICE DAILY 180 tablet 3 cloNIDine (Catapres) 0.1 MG tablet Take by mouth 2 (two) times a day (Patient not taking: Reported on 10/12/2024) fluticasone (Flonase) 50 MCG/ACT nasal spray SPRAY 2 SPRAYS INTO EACH NOSTRIL EVERY DAY 16 mL 3 glimepiride (Amaryl) 2 MG tablet TAKE 1 TABLET EVERY DAY 90 tablet 3 losartan-hydroCHLOROthiazide (Hyzaar) 50-12.5 MG tablet Take 1 tablet by mouth Daily rosuvastatin (Crestor) 5 MG tablet TAKE 1 [...] Penicillin V Other Reaction(s): Unknown Penicillins Other Other Reaction(s): Weakness - general Social History [...] 2017 carotid stenosis TONSILLECTOMY Visit Vitals BP 136/88 Pulse 83 Resp 16 Ht 5' 5 Wt 205 lb 12.8 oz SpO2 97% BMI 34.25 kg/m Smoking Status Never BSA 2.07 m Review of Systems Constitutional: Negative for chills, fatigue and fever. HENT: Negative for ear pain. See HPI Respiratory: Negative for cough, shortness of breath and wheezing. Cardiovascular: Negative for chest pain, palpitations and leg swelling. Gastrointestinal: Negative for abdominal pain, constipation, diarrhea, nausea and vomiting. Skin: Negative for rash. Objective Physical Exam Constitutional: General: He is not in acute distress. Appearance: Normal appearance. HENT: Head: Normocephalic and atraumatic. Right Ear: Tympanic membrane is injected and retracted. Left Ear: Tympanic membrane is not erythematous or retracted. Ears: Comments: Mild cerumen in left canal. Decreased light reflex on right Eyes: General: No scleral icterus. Cardiovascular: Rate and Rhythm: Normal rate and regular rhythm. Heart sounds: No murmur heard. Pulmonary: Effort: Pulmonary effort is normal. No respiratory distress. Breath sounds: Normal breath sounds. No wheezing, rhonchi or rales. Musculoskeletal: General: No swelling. Skin: General: Skin is warm and dry. Neurological: General: No focal deficit present. Mental Status: He is alert and oriented to person, place, and time. Psychiatric: Mood and Affect: Mood normal. Behavior: Behavior normal. Assessment/Plan Diagnoses and all orders for this visit: Dysfunction of right eustachian tube - loratadine (Claritin) 10 MG tablet; Take 1 tablet (10 mg) by mouth Daily for 10 days - predniSONE (Deltasone) 10 MG tablet; Take 1 tablet (10 mg) by mouth 3 (three) times a day for 3 days, THEN 1 tablet (10 mg) 2 (two) times a day for 3 days, THEN 1 tablet (10 mg) Daily for 3 days. Start Prednisone and Loratadine as prescribed. Take steroid with food. Steroid may cause a temporary elevation in his blood glucose levels. Would recommend he stay hydrated and monitor more frequently over the next few days. Continue Flonase. If no improvement with the above, would recommend that patient follow up with Dr. Robledo for re-evaluation and possible further treatment due to persistent/recurrent nature of the symptoms. Follow up for Appointment As Scheduled. documented in this encounter [facility] 08-22-2024 History of Presen t illness Narrative Images from the original note were not included. Subjective Patient ID: Frankie De Anda is a 74 y.o. male who presents for Hypertension, neuropathy, and Sinusitis. Hypertension Patient is here for follow-up of elevated blood pressure.Blood pressure is well controlled at home. Cardiac symptoms: none. Patient denies chest pain, chest pressure/discomfort, claudication, irregular heart beat, orthopnea, palpitations, paroxysmal nocturnal dyspnea, syncope, and tachypnea. Cardiovascular risk factors: advanced age (older than 55 for men, 65 for women), hypertension, male gender, and obesity (BMI >= 30 kg/m2). Sinus Pain Patient complains of congestion. Onset of symptoms was 2 weeks ago. Symptoms have been stable since that time. Patient is non-smoker. Has tried otc antihistamines no help per pt Pt started lyrica as discussed but was not helpful so he stopped taking it Hypertension Sinusitis Current Outpatient Medications on File Prior to Visit Medication Sig Dispense Refill carvedilol (Coreg) 12.5 MG tablet TAKE 1 TABLET TWICE DAILY 180 tablet 3 cloNIDine (Catapres) 0.1 MG tablet Take by mouth 2 (two) times a day fluticasone (Flonase) 50 MCG/ACT nasal spray SPRAY 2 SPRAYS INTO EACH NOSTRIL EVERY DAY 16 mL 3 glimepiride (Amaryl) 2 MG tablet TAKE 1 TABLET EVERY DAY 90 tablet 3 losartan-hydroCHLOROthiazide (Hyzaar) 50-12.5 MG tablet Take 1 tablet by mouth Daily rosuvastatin (Crestor) 5 MG tablet TAKE 1 TABLET AT BEDTIME 90 tablet 3 tamsulosin (Flomax) 0.4 MG 24 hr capsule Take 1 capsule (0.4 mg) by mouth Daily 30 capsule 11 [DISCONTINUED] pregabalin (Lyrica) 25 MG capsule Take 1 capsule (25 mg) by mouth in the morning and 1 capsule (25 mg) in the evening and 1 capsule (25 mg) before bedtime. No current facility-administered medications on file prior to visit. I have reviewed and reconciled the history and medication list with the patient today. Allergies Allergen Reactions Ciprofloxacin Other Increased neuropathy Penicillin V Other Reaction(s): Unknown Penicillins Other Other Reaction(s): Weakness - general Social History [...] 2017 carotid stenosis TONSILLECTOMY Visit Vitals BP 156/90 Pulse 73 Ht 5' 5 Wt 206 lb SpO2 100% BMI 34.28 kg/m Smoking Status Never BSA 2.07 m Review of Systems Objective Physical Exam Constitutional: General: He is not in acute distress. Appearance: He is normal weight. He is not ill-appearing. HENT: Head: Normocephalic. Nose: Congestion present. Mouth/Throat: Pharynx: Oropharyngeal exudate and posterior oropharyngeal erythema present. Cardiovascular: Rate and Rhythm: Normal rate and regular rhythm. Heart sounds: Normal heart sounds. No murmur heard. Pulmonary: Effort: Pulmonary effort is normal. Breath sounds: Normal breath sounds. Musculoskeletal: General: No swelling. Right lower leg: No edema. Left lower leg: No edema. Neurological: Mental Status: He is alert. Psychiatric: Mood and Affect: Mood normal. Thought Content: Thought content normal. Judgment: Judgment normal. Assessment/Plan Diagnoses and all orders for this visit: Acute sinusitis, recurrence not specified, unspecified location - azithromycin (Zithromax) 250 MG tablet; Take 2 tablets (500 mg) by mouth Daily for 1 day, THEN 1 tablet (250 mg) Daily for 4 days. Primary hypertension (CMS/HCC) Diabetic peripheral neuropathy (CMS/HCC) Follow up in about 2 months (around 10/22/2024) for Routine F/U. documented in this encounter [facility] 07-18-2024 History of Presen t illness Narrative Images from the original note were not included. Subjective Patient ID: Frankie De Anda is a 74 y.o. male who presents for hypertension. Frankie is in today for hypertension, states yesterday his BP was 219/91 and went to [facility]. States they did an EKG, blood work, chest xray, covid swap, urine specimen and all came back clear. States he was put on clonadine via IV and was told to start taking clondine rx, states he hasn't had a chance to get rx filled yet though. Is complaining of slight nausea, and dizziness still. Says he has regularly been taking his carvedilol. Current Outpatient Medications on File Prior to Visit Medication Sig Dispense Refill carvedilol (Coreg) 12.5 MG tablet TAKE 1 TABLET TWICE DAILY 180 tablet 3 cloNIDine (Catapres) 0.1 MG tablet Take by mouth 2 (two) times a day fluticasone (Flonase) 50 MCG/ACT nasal spray SPRAY [...] carotid stenosis TONSILLECTOMY Visit Vitals BP (!) 165/95 Pulse 68 Resp 20 Wt 208 lb 6.4 oz SpO2 99% BMI 34.68 kg/m Smoking Status Never BSA 2.08 m Review of Systems Objective Physical Exam Constitutional: General: He is not in acute distress. Appearance: He is normal weight. He is not ill-appearing. HENT: Head: Normocephalic. Cardiovascular: Rate and Rhythm: Normal rate and regular rhythm. Heart sounds: Normal heart sounds. No murmur heard. Pulmonary: Effort: Pulmonary effort is normal. Breath sounds: Normal breath sounds. Musculoskeletal: General: No swelling. Right lower leg: No edema. Left lower leg: No edema. Neurological: Mental Status: He is alert. Psychiatric: Mood and Affect: Mood normal. Thought Content: Thought content normal. Judgment: Judgment normal. Assessment/Plan Diagnoses and all orders for this visit: Primary hypertension (CMS/HCC) - losartan-hydroCHLOROthiazide (Hyzaar) 50-12.5 MG tablet; Take 1 tablet by mouth Daily Diabetic peripheral neuropathy (CMS/HCC) - pregabalin (Lyrica) 25 MG capsule; Take 1 capsule (25 mg) by mouth in the morning and 1 capsule (25 mg) in the evening and 1 capsule (25 mg) before bedtime. Idiopathic progressive neuropathy - pregabalin (Lyrica) 25 MG capsule; Take 1 capsule (25 mg) by mouth in the morning and 1 capsule (25 mg) in the evening and 1 capsule (25 mg) before bedtime. Follow up in about 1 week (around 07/25/2024). documented in this encounter [facility] 06-29-2024 History of Presen t illness Narrative Associated Order(s): Ear Cerumen Removal [...] 09/27/2024) for Hypertension. documented in this encounter [facility] 05-16-2024 History of Presen t illness Narrative Images from the original note [...] Do you have a medical power of privacy attorney?: No Objective : BP 130/78 Pulse 74 [...] current use of insulin, unspecified laterality (CMS/HCC) - POCT Glycated hemoglobin, total - Comprehensive metabolic panel; Future - Lipid panel; Future - TSH W/REFLEX TO FT4; Future Prostate cancer screening - PSA Elevated cholesterol (CMS/HCC) - Lipid panel; Future Essential (primary) hypertension (CMS/HCC) - Comprehensive metabolic panel; Future Stenosis of right carotid artery Coronary artery disease involving [place] coronary artery of [place] heart without angina pectoris (CMS/HCC) - CBC and differential Orders Placed This Encounter Procedures POCT Glycated hemoglobin, total Electronically signed by Weston Borja MD on May 16, 2024 documented in this encounter [facility] 04-14-2024 History of Presen t illness Narrative Physical Therapy Treatment Visit Patient [...] on/off for several years. Had PT at [facility] which helped. Had increased pain while [...] to be instructed in home exercise program. Collections Representative Goals: To be met in 10 weeks [...] sign below. Date: documented in this encounter [facility] 04-12-2024 History of Presen t illness Narrative Physical Therapy Treatment Visit Patient [...] on/off for several years. Had PT at [facility] which helped. Had increased pain while [...] to be instructed in home exercise program. [facility] Goals: To be met in 10 weeks [...] Please sign below. Date: Cosigned by Alexis Ortiz PT at 04/13/2024 1:08 PM EST documented in this encounter [facility] 03-29-2024 History of Presen t illness Narrative Physical Therapy Treatment Visit Patient Name: Frankie MARTINEZ Today's Date: 03/30/2024 Encounter Diagnoses Name [...] on/off for several years. Had PT at [facility] which helped. Had increased pain while [...] to be instructed in home exercise program. [facility] Goals: To be met in 10 weeks [...] sign below. Date: documented in this encounter [facility] 03-15-2024 History of Presen t illness Narrative Physical Therapy Treatment Visit Patient Name: Frankie MARTINEZ Today's Date: 03/15/2024 No diagnosis found. Visit number: 5 Timed Code Treatment Minutes: 45 minutes Total Treatment Time: 60 minutes Time In: 1430 Time Out: 1530 History: Pt. Presents to PT with c/c of central low back and right hip pain. Pain on/off for several years. Had PT at [facility] which helped. Had increased pain while [...] exercises today and pt. Tolerated well. Pt. [place] new exercises really helped. Outcome Measure: Rehab Diagnosis: lumbar DDD, right hip OA Short Term Goal: To be met in 2 weeks Goal 1: Pt to be instructed in home exercise program. [facility] Goals: To be met in 10 weeks [...] sign below. Date: documented in this encounter [facility] 03-14-2024 History of Presen t illness Narrative Images from the original note [...] CAD (coronary artery disease) (CMS/HCC) Cataract Diabetes ([facility]/HCC) enlarged prostate prevention GERD (gastroesophageal reflux disease) Heart attack (CMS/HCC) 2006 no stents or surgery needed High cholesterol [...] follow-ups on file. documented in this encounter [facility] 03-07-2024 History of Presen t illness Narrative Pt dropped off urine to be checked d/t he feel he may have a UTI. documented in this encounter [facility] 12-26-2022 Hospital Discharg e instructions Follow Up Care 12/26/2022 14:17:19 With:Dakota AHN MD, SUR Address: [address] [place] [id number] When: only if needed With:Dakota AHN MD, SUR Address: [address] [place] [address]- When: only if needed With:JIMY BOWEN, MIGUEL A Hawk Address: [place] [address]- When: only if needed General Surgery [employer] 10-01-2022 Note Chief Complaint consultation for left inguinal hernia HPI Staff 72 year old male presents on [...] tab(s), Oral, BID, PRN Flonase 0.05 mg/inh [place], 2 spray(s), Nasal, Daily hydrochlorothiazide-losartan 12.5 mg-50 mg Tab, 1 tab(s), Oral, Daily metformin 500 mg Tab, 500 mg= 1 tab(s), Oral, BID Allergies penicillins (Weakness - general) Social History Alcohol - Low Risk, 07/11/2019 Substance Abuse - Denies S (more content not included)... [facility] Comment on above: Result Comment: Elec tronically Signed By: JIMY BOWEN, Dakota Hoang\.br\Date and Time Signed: 10/01/22 15:06 EDT 11-12-2021 [...] us in the meantime with any issues. [facility] Other Evaluation + Plan note No data available for this section General Surgery [facility] Evaluation + Plan note Future Appointments Appointment Date:12/26/2022 02:00:00 PM Scheduled Provider:Dakota AHN MD Location:[facility] Appointment Type: Post Op 15 General Surgery [facility] Evaluation + Plan note Future Appointments Appointment Date:01/13/2023 04:00:00 PM Scheduled Provider:Dakota AHN MD Location:[facility] Appointment Type:GS Post Op 15 General Surgery [facility] Evaluation note* Diagnosis Onset Date Resolution Status Carotid stenosis, right [facility] Work Phone: Evaluation note* Diagnosis Degeneration of intervertebral disc of [...] current use of insulin, unspecified laterality (CMS/HCC) Prostate cancer screening Special screening for malignant neoplasm of prostate Elevated cholesterol (CMS/HCC) Pure hypercholesterolemia Essential (primary) hypertension (CMS/HCC) Unspecified essential hypertension Stenosis of right carotid artery Occlusion and stenosis of carotid artery without mention of cerebral infarction Coronary artery disease involving [place] coronary artery of [place] heart without angina pectoris (CMS/[facility]) [facility] Diagnosis Degenerative disc disease, lumbar- Primary Low back pain, unspecified back pain laterality, unspecified chronicity, unspecified whether sciatica present [facility]* Diagnosis Degenerative disc disease, lumbar- Primary Low back pain, unspecified back pain laterality, unspecified chronicity, unspecified whether sciatica present [facility]* Diagnosis Primary hypertension (CMS/HCC)- Primary Unspecified essential hypertension Bilateral impacted cerumen Impacted cerumen Nasal congestion Other diseases of nasal cavity and sinuses Epistaxis [facility]* Diagnosis Primary hypertension (CMS/HCC)- Primary Unspecified essential hypertension Diabetic peripheral neuropathy (CMS/HCC) Type II or unspecified type diabetes mellitus with neurological manifestations, not stated as uncontrolled Idiopathic progressive neuropathy [facility]* Diagnosis Acute sinusitis, recurrence not specified, unspecified location- Primary Primary hypertension (CMS/HCC) Unspecified essential hypertension Diabetic peripheral neuropathy (CMS/HCC) Type II or unspecified type diabetes mellitus with neurological manifestations, not stated as uncontrolled [facility]* Diagnosis Dysfunction of right eustachian tube- Primary [facility]* Diagnosis Routine general medical examination at health care facility- Primary Routine general medical examination at a health care facility ACP (advance care planning) Other specified counseling 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, without long-term current use of insulin, unspecified laterality (CMS/HCC) Essential (primary) hypertension (CMS/HCC) Unspecified essential hypertension Chronic fatigue Other malaise and fatigue [facility]* Diagnosis Diabetic peripheral neuropathy (HCC)- Primary Type II or unspecified type diabetes mellitus with neurological manifestations, not stated as uncontrolled [facility] Narrative - Reported* Type Description Date Medical History HTN-supposed to take Bystolic, but reports he does not usually take it Medical History Hypercholestermia Medical History Inguinal hernia Medical History DM with some neuropahty Medical History CAD with [place] in 2005- did not have significant amount of cardiac injury at that time and has not had any recurrent symptoms of angina. He continues to follow with Dr. Lamb who treats him medically Medical History CVOD Surgical History Circumcision 2012 Surgical History Lt ankle fx 2017 Surgical History carotid endarterectomy right si de 2017 Hospitalization History Heart attack 2005 [facility] Other Hospital Discharge instructions No data available for this section General Surgery [employer] Progress note No data available for this section General Surgery [employer] Reason for visit Narrative* Rehabilitation - Outpatient (Routine) - Authorized Specialty Diagnoses / Procedures Referred By Layton t Referred To Contact Physical Therapy Diagnoses Degenerative disc disease, lumbar Low back pain, unspecified back pain laterality, unspecified chronicity, unspecified whether sciatica present Procedures [place] OFFICE/OUTPATIENT [facility] 60 MINUTES Weston Borja MD [address] [facility] [address] [place] [address] Phone: tel: fax: [facility] [address] [facility] [address] [place] [address] Phone: tel: fax: Referral ID Status Reason Start Date Expiration Date Visits Requested Visits Authorized [id number] Authorized Specialty Services Required 02/16/2024 03/19/2024 9 9 [facility]* Rehabilitation - Outpatient (Routine) - Authorized Specialty Diagnoses / Procedures Referred By Contac t Referred To Contact Physical Therapy Diagnoses Degenerative disc disease, lumbar Low back pain, unspecified back pain laterality, unspecified chronicity, unspecified whether sciatica present Procedures NV THER PX 1/> AREAS EACH 15 MIN NEUROMUSC REEDUCA PHYS/OCC THERAPY SS NV MANUAL THERAPY TQS 1/> REGIONS EACH 15 MINUTES NV THERAPEUTIC PX 1/> AREAS EACH 15 MIN EXERCISES Weston Borja MD 112 [facility] [address] [place] [address] Phone: tel: fax: [facility] [address] [facility] [address] [place] [address] Phone: tel: fax: Referral ID Status Reason Start Date Expiration Date Visits Requested Visits Authorized [id number] Authorized Specialty Services Required 04/22/2024 8 8 [facility] HealthcareReason for visit Narrative* Rehabilitation - Outpatient (Routine) - Closed Specialty Diagnoses / Procedures Referred By [place] Referred To Contact Physical Therapy Diagnoses Degenerative disc disease, lumbar Low back pain, unspecified back pain laterality, unspecified chronicity, unspecified whether sciatica present Procedures NV THER PX 1/> AREAS EACH 15 MIN NEUROMUSC REEDUCA PHYS/OCC THERAPY SS NV MANUAL THERAPY TQS 1/> REGIONS EACH 15 MINUTES NV THERAPEUTIC PX 1/> AREAS EACH 15 MIN EXERCISES Weston Borja MD 112 [facility] [address] [place] [address] Phone: tel: fax: [facility] [address] [facility] [address] [place] [address] Phone: tel: fax: Referral ID Status Reason Start Date Expiration Date V isits Requested Visits Authorized [id number] Closed Specialty Services Required 03/22/2024 04/22/2024 8 8 [facility] Summary Purpose Family History Unknown Family Member Name Dates Details Family history of cardiac di sorder: Mother, Father(V17.49, Z82.49) Status:Active Family history of malignant neoplasm of skin: Sister(V16.8, Z80.8) Status:Active Relationship Condition Age at Onset Recorded Date/T ananth father Heart disease Unknown Unknown mother Heart disease Unknown sister Malignant neoplasm Unknown Advance Directives Advance Directive Response Recorded Date/ Time Advance [...] section and content) DATE CREATED AUTHOR 11/25/2021 [facility] DATE CREATED AUTHOR AUTHOR'S ORGANIZ ATION 09/04/2022 [facility] DATE CREATED AUTHOR AUTHOR'S ORGANIZ ATION 09/04/2022 [facility] DATE CREATED AUTHOR AUTHOR'S ORGANIZ ATION 10/03/2022 [facility] DATE CREATED AUTHOR AUTHOR'S ORGANIZ ATION 01/14/2023 [place] D[place] [facility] ical Center DATE CREATED AUTHOR AUTHOR'S ORGANIZ ATION 12/04/2024 [facility] EPIC DATE CREATED AUTHOR AUTHOR'S ORGANIZ ATION 12/04/2024 [facility] REASON FOR VISIT (unrecogniz ed section and content) Specialty Diagnoses / Procedures Referred By [place] Referred To Contact Physical Therapy Diagnoses Degenerative disc disease, lumbar Low back pain, unspecified back pain laterality, unspecified chronicity, unspecified whether sciatica present Procedures NV OFFICE/OUTPATIENT NEW HIGH MDM 60 MINUTES Weston Borja MD 112 [facility] [address] [place] [address] [address] [facility] [address] [place] [address] Referral ID Status Reason Start Date Expiration Date Visits Requested Visits Authorized [id number] Authorized Specialty Services Required 02/16/2024 03/19/2024 9 9 Reason Comments UTI Referral ID Status Reason Start Date Expiration Date Visits Requested Visits Authorized [id number] Authorized Specialty Services Required 02/18/2024 03/19/2024 8 8 Reason Comments Medicare Annual Wellness Visit Manoloen t Reason Comments URI Admits about a week ago he started having some nasal congestion and when he blows his nose he is getting greyish/bloody mucous. Would like for you to look at his nasal passages. Symptoms were a little worse yesterday. Reason Comments Hypertension neuropathy Sinusitis Reason Onset Date Comments Med Refill 12/26/2024 Patient Care team informatio n (unrecognized section and content) Date Puller Relationship Specialty Start Date End Date Weston Borja MD [address] [place] [address] PCP - [employer] 06/01/20 Weston Borja MD [address] [place] [address] PCP - General Internal Medicine 10/07/22Thursday, PRECIOUS [employer] [address] [place] [address] Licensed Practical Nurse Family Medicine 07/02/23 Team Status: Active Member Role Status Dates Weston Borja II MD Primary Care Provider Active Team Status: Inactive Member Role Status Dates Melchor Mondragon MD Attending Provider Active S tart: December 08, 2023 End: December 08, 2023 Weston Borja II MD Primary Care Provider Active Start: December 08, 2023 End: December 08, 2023 Date Puller Relationship Specialty Start Date End Date Weston Borja MD [address] [place] [address] PCP - General Internal Medicine 10/07/22 Date Puller Relationship Specialty Start Date End Date Weston Borja MD [address] [place] [address] PCP - General Internal Medicine 10/07/22 Date Puller Relationship Specialty Start Date End Date Weston Borja MD [address] [place] [address] PCP - General Internal Medicine 10/07/22 Date Puller Relationship Specialty Start Date End Date Weston Borja MD [address] [place] [address] PCP - General Internal Medicine 10/07/22 Date Puller Relationship Specialty Start Date End Date Weston Borja MD [address] [place] [address] PCP - General Internal Medicine 10/07/22 Date Puller Relationship Specialty Start Date End Date Weston Borja MD [address] [place] [address] PCP - General Internal Medicine 10/07/22 Date Puller Relationship Specialty Start Date End Date Weston Borja MD [address] [place] [address] PCP - General Internal Medicine 10/07/22 Date Puller Relationship Specialty Start Date End Date Weston Borja MD [address] [place] [address] PCP - General Internal Medicine 10/07/22 Date Puller Relationship Specialty Start Date End Date Weston Borja MD [address] [place] [address] PCP - General Internal Medicine 10/07/22 Date Puller Relationship Specialty Start Date End Date Weston Boraj MD [address] [place] [address] PCP - General Internal Medicine 10/07/22 Date Puller Relationship Specialty Start Date End Date Weston Borja MD [address] [place] [address] PCP - General Internal Medicine 10/07/22 Date Puller Relationship Specialty Start Date End Date Weston Borja MD [address] [place] [address] PCP - General Internal Medicine 10/07/22 Date Puller Relationship Specialty Start Date End Date Weston Borja MD [address] [place] [address] PCP - General Internal Medicine 10/07/22 Date Puller Relationship Specialty Start Date End Date Weston Borja MD [address] [place] [address] PCP - General Internal Medicine 10/07/22 Date Puller Relationship Specialty Start Date End Date Wseton Borja MD [address] [place] [address] PCP - General Internal Medicine 10/07/22 Date Puller Relationship Specialty Start Date End Date Weston Borja MD [address] [place] [address] PCP - General Internal Medicine 10/07/22 Date Puller Relationship Specialty Start Date End Date Weston Borja MD [address] [place] [address] PCP - General Internal Medicine 10/07/22 Date Puller Relationship Specialty Start Date End Date Weston Borja MD [address] [place] [address] PCP - General Internal Medicine 10/07/22 Date Puller Relationship Specialty Start Date End Date Weston Borja MD [address] [place] [address] PCP - General Internal Medicine 10/07/22 Date Puller Relationship Specialty Start Date End Date Weston Borja MD [address] [place] [address] PCP - General Internal Medicine 10/07/22 Date Puller Relationship Specialty Start Date End Date Weston Borja MD [address] [place] [address] PCP - General Internal Medicine 10/07/22 Frankie Irby DO [address] [place] [address] PCP - [employer] 06/01/20 Date Puller Relationship Specialty Start Date End Date Weston Borja MD [address] [place] [address] PCP - General Internal Medicine 10/07/22 Frankie Irby DO [address] [place] [address] PCP - [employer] 06/01/20 Date Puller Relationship Specialty Start Date End Date Weston Borja MD [address] [place] [address] PCP - General Internal Medicine 10/07/22 Frankie Irby DO [address] [place] [address] PCP - [employer] 06/01/20 Date Puller Relationship Specialty Start Date End Date Weston Borja MD [address] [place] [address] PCP - General Internal Medicine 10/07/22 Frankie Irby DO [address] [place] [address] PCP - [employer] 06/01/20 Date Puller Relationship Specialty Start Date End Date Weston Borja MD [address] [address] PCP - General Internal Medicine 10/07/22 Frankie Irby DO [address] [facility] [place] [address] PCP - [employer] 06/01/20 Date Puller Relationship Specialty Start Date End Date Weston Borja MD [address] [address] PCP - General Internal Medicine 10/07/22 Frankie Irby DO [address] [place] [address] PCP - [employer] 06/01/20 Date Puller Relationship Specialty Start Date End Date Weston Borja MD [address] [address] PCP - General Internal Medicine 10/07/22 Frankie Irby DO [address] [facility] [place] [address] PCP - [employer] 06/01/20 Goals (unrecognized section and content) Goals may [...] BE BASED ON THE PRIMARY CLINICAL RECORDS. [facility]. provides no warranty or guarantee of the accuracy or completeness of information in this document.
[2025-01-04 23:40] VITALS: O2SAT 98
[2025-01-04 23:50] VITALS: O2SAT 99
--- NOTE | 2025-01-04 23:51 | ECG_ITS ---
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 Measurements Intervals [place] Rate: 65 P: 67 TX: 164 QRS: 21 QRSD: 70 T: 23 QT: 404 QTc: 416 Interpretive Statements 1100 Sinus rhythm 8102 Low QRS voltage in chest leads 9120 atypical ECG Compared to ECG 07/17/2024 22:56:27 No significant changes Electronically Signed On 01-05-2025 8:21:20 EDT by ZENIA FUNES M.D.
[2025-01-04 23:53] VITALS: BP 169/92; PULSE 66; O2SAT 99
[2025-01-05] VITALS (16 sets, daily range): BP systolic 138–187; BP diastolic 62–89; PULSE 59–64; O2SAT 96–99
--- NOTE | 2025-01-05 00:22 | ED.GENADUL1 ---
HPI HPI - General Adult General Chief complaint: Recheck/Abnormal Lab/Rx Stated complaint: BLOOD PRESSURE VERY HIGH Time Seen by Provider: 01/05/25 00:12 Source: patient Mode of arrival: walk-in History of Present Illness HPI narrative: hypertension. states BP elevated all day. felt little light headed. No chest pain or nausea or dyspnea. No abdominal pain Related Data Home Medications ?Medication ?Instructions ?Recorded ?Confirmed aspirin 81 mg tablet,delayed 81 mg PO DAILY 12/01/22 01/04/25 release (Adult Aspirin Regimen) carvedilol 12.5 mg tablet 12.5 mg PO Q12H 12/01/22 01/04/25 fluticasone propionate 50 1 spray intranasal Q12H 12/01/22 01/04/25 mcg/actuation nasal spray,suspension losartan 50 mg-hydrochlorothiazide 1 tab PO QDAY 12/01/22 01/04/25 12.5 mg tablet metformin 1,000 mg tablet 500 mg PO BID 12/01/22 01/04/25 rosuvastatin 5 mg tablet 5 mg PO QDAY 12/01/22 01/04/25 tolterodine 4 mg capsule,extended 4 mg PO Q24H 12/01/22 01/04/25 release 24 hr glimepiride 2 mg tablet 2 mg PO DAILY 01/04/25 01/04/25 pregabalin 100 mg capsule 100 mg PO Q12H 01/04/25 01/04/25 tamsulosin 0.4 mg capsule 0.4 mg PO DAILY 01/04/25 01/04/25 Allergies Allergy/AdvReac Type Severity Reaction Status Date / Time Penicillins Allergy muscle Verified 01/04/25 23:38 numbness Opioid HPI Opioid Management Most Recent Opioid Data: Last Pain Scale 4 12/11/22, 09:00 Review of Systems ROS Status of ROS 10 or more systems reviewed and unremarkable except as noted in history and below [facility] Medical History (Updated 01/05/25 @ 01:40 by Brett Garduno MD) Incarcerated left inguinal hernia ?K40.30 - Unilateral inguinal hernia, with obstruction, without gangrene, not specified as recurrent (ICD-10) GERD (gastroesophageal reflux disease) ?K21.9 - Gastro-esophageal reflux disease without esophagitis (ICD-10) Elevated PSA ?R97.20 - Elevated prostate specific antigen [PSA] (ICD-10) BPH (benign prostatic hyperplasia) ?N40.0 - Benign prostatic hyperplasia without lower urinary tract symptoms (ICD-10) Neuropathy ?G62.9 - Polyneuropathy, unspecified (ICD-10) Arthritis ?M19.90 - Unspecified osteoarthritis, unspecified site (ICD-10) COVID-19 ?U07.1 - COVID-19 (ICD-10) Hypertension ?I10 - Essential (primary) hypertension (ICD-10) Myocardial infarction ?I21.9 - Acute myocardial infarction, unspecified (ICD-10) Heart murmur ?R01.1 - Cardiac murmur, unspecified (ICD-10) High cholesterol ?E78.00 - Pure hypercholesterolemia, unspecified (ICD-10) Diabetes ?E11.9 - Type 2 diabetes mellitus without complications (ICD-10) Hernia ?K46.9 - Unspecified abdominal hernia without obstruction or gangrene (ICD-10) Surgical History (Updated 12/10/22 @ 08:10 by Gisselle Nagel) History of circumcision ?Z98.890 - Other specified postprocedural states (ICD-10) S/P carotid endarterectomy ?Z98.890 - Other specified postprocedural states (ICD-10) History of tonsillectomy ?Z90.89 - Acquired absence of other organs (ICD-10) Family History (Updated 12/01/22 @ 11:31 by Jayda Martinez NP) Other Family history of heart disease Family history of hypertension Family history of myocardial infarction Family history of skin cancer Social History (Updated 12/01/22 @ 11:22 by Jayda Martinez NP) Within the past year, how often did you have a drink containing alcohol: monthly or less Smoking status: Never smoker Non-prescribed substance use: denies use Highest level of school completed/degree received: high school graduate Little interest or pleasure in doing things: not at all Feeling down, depressed, or hopeless: not at all Exam Constitutional Vital Signs, click to edit/add: Last Vital Signs Temp 98 F 01/04/25 23:26 Pulse 62 01/05/25 01:30 Resp 23 H 01/05/25 01:30 BP 157/67 H 01/05/25 01:30 Pulse Ox 97 01/05/25 01:30 O2 Del Method Room Air 01/04/25 23:26 Common normals: no apparent distress, average body habitus, oriented x3, no limitations, healthy appearing and alert HENMT Common normals: normocephalic and head/scalp atraumatic Eye Common normals: EOMs intact bilaterally and conjunctivae normal Respiratory Common normals: normal respiratory effort, no retractions, no use of accessory muscles and clear to auscultation bilaterally Cardio Common normals: regular rate, regular rhythm, S1 normal heart sound and S2 normal heart sound Extremity Common normals: normal to inspection and full ROM Neuro Common normals: oriented x3, CN's II-XII intact bilaterally, moves all extremities and no focal motor deficits Psych Appearance: grossly normal Course Vital Signs Vital signs: Vital Signs Temperature 98 F 01/04/25 23:26 Pulse Rate 71 01/04/25 23:26 Respiratory Rate 18 01/04/25 23:26 Blood Pressure 182/80 H 01/04/25 23:26 Pulse Oximetry 97 01/04/25 23:26 Oxygen Delivery Method Room Air 01/04/25 23:26 Temperature 98 F 01/04/25 23:26 Pulse Rate 62 01/05/25 01:30 Respiratory Rate 23 H 01/05/25 01:30 Blood Pressure 157/67 H 01/05/25 01:30 Pulse Oximetry 97 01/05/25 01:30 Oxygen Delivery Method Room Air 01/04/25 23:26 Medical Decision Making MDM Narrative Medical decision making narrative: presents with hypertensive flare. no clear etiology. workup in the department neg. labs normal including normal troponin. BP improved after one dose of catapres. Patient discharged to follow up with his doctor Lab Data Labs: Lab Results 01/04/25 01/05/25 Range/Units 23:47 00:43 WBC 7.8 (4.0-11.0) 10^3/uL RBC 5.08 (4.70-6.10) 10^6/uL Hgb 14.2 (14.0-18.0) g/dL Hct 42.1 (42.0-54.0) % MCV 82.9 (80.0-94.0) fL MCH 28.0 (25.9-34.0) pg MCHC 33.7 (29.9-35.2) g/dL RDW 13.7 (11.0-15.0) % Plt Count 195 (150-450) 10^3/uL MPV 9.7 (9.5-13.5) fL Neut % (Auto) 54.3 (43.0-75.0) % Lymph % (Auto) 30.4 (20.5-60.0) % [place] % (Auto) 9.0 (1.7-12.0) % Eos % (Auto) 5.4 (0.9-7.0) % Baso % (Auto) 0.5 (0.2-2.0) % Neut # (Auto) 4.2 (1.4-6.5) 10^3/uL Lymph # (Auto) 2.4 (1.2-3.8) 10^3/uL [place] # (Auto) 0.7 (0.3-0.8) 10^3/uL Eos # (Auto) 0.4 (0.0-0.7) 10^3/uL Baso # (Auto) 0.0 (0.0-0.1) 10^3/uL Abs Immat Gran (auto) 0.03 (0.00-0.03) 10^3/uL Imm/Tot Granulo (auto) 0.4 (0.0-0.5) % Sodium 141 (136-145) mmol/L Potassium 4.0 (3.5-5.1) mmol/L Chloride 104 (98-107) mmol/L Carbon Dioxide 29.7 (21.0-32.0) mmol/L Anion Gap 11.3 BUN 11.0 (7.0-18.0) mg/dL Creatinine 0.88 (0.70-1.30) mg/dL Est GFR ( Amer) >60 (>=60 mL/min/1.73m^2) Est GFR (Non-Af Amer) >60 (>=60 mL/min/1.73m^2) BUN/Creatinine Ratio 12.5 Glucose 130 H (74-106) mg/dL Calcium 9.5 (8.5-10.1) mg/dL Troponin I High Sens 5.7 (4.0-76.1) pg/mL Urine Color Lt. yellow (YELLOW) Urine Clarity Clear (CLEAR) Urine pH 6.5 (5.0-9.0) Ur Specific [place] 1.010 (1.005-1.025) Urine Protein Negative (NEG/TRACE) mg/dL Urine Glucose (UA) Negative (NEGATIVE) mg/dL Urine Ketones Negative (NEGATIVE) mg/dL Urine Occult Blood Negative (NEGATIVE) Urine Nitrite Negative (NEGATIVE) Urine Bilirubin Negative (NEGATIVE) Urine Urobilinogen 0.2 (0.2-1.0) EU/dL Ur Leukocyte Esterase Negative (NEGATIVE) Discharge Plan Discharge Chief Complaint: Recheck/Abnormal Lab/Rx Clinical Impression: Hypertension Patient Disposition: Home, Self-Care Prescriptions / Home Meds: No Action glimepiride 2 mg tablet 2 mg PO DAILY pregabalin 100 mg capsule 100 mg PO Q12H tamsulosin 0.4 mg capsule 0.4 mg PO DAILY aspirin [Adult Aspirin Regimen] 81 mg tablet,delayed release (DR/EC) 81 mg PO DAILY carvedilol 12.5 mg tablet 12.5 mg PO Q12H fluticasone propionate 50 mcg/actuation spray,suspension 1 spray INTRANASAL Q12H losartan-hydrochlorothiazide 50-12.5 mg tablet 1 tab PO QDAY metformin 1,000 mg tablet 500 mg PO BID rosuvastatin 5 mg tablet 5 mg PO QDAY tolterodine 4 mg capsule,extended release 24hr 4 mg PO Q24H Print Language: Sami Instructions: Hypertension (ED) Referrals: GERSON RODRIGUEZ [Primary Care Provider, Internal Medicine] - 1 week
[2025-01-05 00:32] LABS: Hematocrit 42.1 % (42.0-54.0); Hemoglobin 14.2 g/dL (14.0-18.0); Immature Granulocytes Abs Auto 0.03 10^3/uL (0.00-0.03); Immature Granulocytes Pct Auto 0.4 % (0.0-0.5); Lymphocytes Absolute Auto 2.4 10^3/uL (1.2-3.8); Mean Corpuscular HGB Conc 33.7 g/dL (29.9-35.2); Mean Corpuscular Hemoglobin 28.0 pg (25.9-34.0); Mean Corpuscular Volume 82.9 fL (80.0-94.0); Platelet Count 195 10^3/uL (150-450); Red Blood Count 5.08 10^6/uL (4.70-6.10); White Blood Count 7.8 10^3/uL (4.0-11.0)
[2025-01-05] MEDS: CLONIDINE HCL 0.1 MG TABLET PO (00:36)
[2025-01-05 00:49] LABS: Anion Gap 11.3; Blood Urea Nitrogen 11.0 mg/dL (7.0-18.0); Calcium 9.5 mg/dL (8.5-10.1); Carbon Dioxide 29.7 mmol/L (21.0-32.0); Chloride 104 mmol/L (98-107); Estimated GFR (African America >60 (>=60 mL/min/1.73m^2); Estimated GFR (Non-African Ame >60 (>=60 mL/min/1.73m^2); Glucose 130 mg/dL (74-106); Potassium 4.0 mmol/L (3.5-5.1); Sodium 141 mmol/L (136-145)
[2025-01-05 01:21] LABS: Glucose Urine UA NEGATIVE (NEGATIVE)
== END 2025-01-05 01:56 | disposition home or self-care (01) ==
PROVIDERS: Emergency Provider Internal Medicine; PCP Internal Medicine
DX: I10 Essential (primary) hypertension (principal); R42 Dizziness and giddiness; E11.9 Type 2 diabetes mellitus without complications
CPT/HCPCS: 36415; 80048; 81003; 84484; 85025; 93005; 99284

== ENCOUNTER 2025-03-10 14:23 | Outpatient (OUT) | payer MEDICARE, SELFPAY ==
--- NOTE | 2025-03-10 13:42 | CT_ITS ---
[address] [address] Patient Name: LUCIE HIHG MRN: [id number] date: 1950 Sex: M Assigned Patient Location: CT Current Patient Location: CT Accession/Order Number: [id number] Exam Date: 03/10/2025 14:30 Report Date: 03/10/2025 17:08 At the request of: ANTWON ESTRADA MD Procedure: CT int auditory canals w/o con CT int auditory canals wo/w 03/10/2025 2:49 PM SIGNS AND SYMPTOMS: ^Chronic Dysfunction Of Right Eustachian Tube, hearing loss, tinnitus COMPARISON: None. TECHNIQUE: Using a multi-detector scanner, 0.5 x 0.3 mm axial scans of the temporal bone were acquired using a high-resolution bone technique. The scans were retrospectively targeted for right and left side, and subsequently reconstructed in the coronal and Sagittal plane, again targeting the right and left sides individually, as well as the entire skull base. CT was performed with one or more of the following dose reduction techniques: Automated exposure control, adjustment of the mA and/or kV according to patient size, or use of iterative reconstruction technique. FINDINGS: Right: There is soft tissue/fluid attenuation occupying the mesotympanum and hypotympanum including Prussak's space. There is slight blunting of the scutum presumed secondary to demineralization. There is also subtle demineralization of the incus and stapes. This may represent a cholesteatoma. The cochlea, vestibule, vestibular and cochlear aqueduct are within normal limits. The facial nerve canal is within normal limits. The semicircular canals are within normal limits. The internal auditory canal is within normal limits. The external auditory canal is within normal limits. There is a right mastoid effusion. The carotid canal and jugular foramen are within normal limits. The temporomandibular joint is within normal limits. Left: The middle ear cleft is within normal limits and the ossicles are within normal limits. The cochlea, vestibule, vestibular and cochlear aqueduct are within normal limits. The facial nerve canal is within normal limits. The semicircular canals are within normal limits.. The internal auditory canal is within normal limits.. The external auditory canal and mastoid air cells are within normal limits. The carotid canal and jugular foramen are within normal limits. The temporomandibular joint is intact. Paranasal sinuses: There is mucosal thickening partially opacifying the ethmoid air cells and mucosal thickening is also noted in the maxillary sinuses. CT/CT int auditory canals w/o con IMPRESSION: There is soft tissue/fluid attenuation occupying the mesotympanum and hypotympanum on the right including Prussak's space. There is slight blunting of the scutum presumed secondary to demineralization. There is also subtle demineralization of the incus and stapes. This may represent a cholesteatoma. The temporal bone structures are within normal limits. Impression dictated by: Todd Hartman M.D. 03/10/2025 5:08 PM Dictation Location: [place] [address] Electronically authenticated by: [id number] Y Date: 03/10/2025 17:08
--- NOTE | 2025-03-10 14:27 | CT_ITS ---
The [address] [address] Patient Name: LUCIE HIGH MRN: [id number] date: 1950 Sex: M Assigned Patient Location: CT Current Patient Location: CT Accession/Order Number: [id number] Exam Date: 03/10/2025 14:46 Report Date: 03/10/2025 17:08 At the request of: ANTWON ESTRADA MD Procedure: CT int auditory canals wo/w CT int auditory canals wo/w 03/10/2025 2:49 PM SIGNS AND SYMPTOMS: ^Chronic Dysfunction Of Right Eustachian Tube, hearing loss, tinnitus COMPARISON: None. TECHNIQUE: Using a multi-detector scanner, 0.5 x 0.3 mm axial scans of the temporal bone were acquired using a high-resolution bone technique. The scans were retrospectively targeted for right and left side, and subsequently reconstructed in the coronal and Sagittal plane, again targeting the right and left sides individually, as well as the entire skull base. CT was performed with one or more of the following dose reduction techniques: Automated exposure control, adjustment of the mA and/or kV according to patient size, or use of iterative reconstruction technique. FINDINGS: Right: There is soft tissue/fluid attenuation occupying the mesotympanum and hypotympanum including Prussak's space. There is slight blunting of the scutum presumed secondary to demineralization. There is also subtle demineralization of the incus and stapes. This may represent a cholesteatoma. The cochlea, vestibule, vestibular and cochlear aqueduct are within normal limits. The facial nerve canal is within normal limits. The semicircular canals are within normal limits. The internal auditory canal is within normal limits. The external auditory canal is within normal limits. There is a right mastoid effusion. The carotid canal and jugular foramen are within normal limits. The temporomandibular joint is within normal limits. Left: The middle ear cleft is within normal limits and the ossicles are within normal limits. The cochlea, vestibule, vestibular and cochlear aqueduct are within normal limits. The facial nerve canal is within normal limits. The semicircular canals are within normal limits.. The internal auditory canal is within normal limits.. The external auditory canal and mastoid air cells are within normal limits. The carotid canal and jugular foramen are within normal limits. The temporomandibular joint is intact. Paranasal sinuses: There is mucosal thickening partially opacifying the ethmoid air cells and mucosal thickening is also noted in the maxillary sinuses.
--- OUTSIDE RECORDS SUMMARY | 2025-03-10 14:27 | XMS_ITS | CCD ---
Author Organization [facility] Care Team Providers Care Reservation Clerk Name Role Phone Judith Gibson Unavailable Weston Borja II Primary Care Unavail able Emily BARRERA, Dr. Cosmo Torrez Attending Unavailable Emily BARRERA, Dr. Cosmo Torrez Referring Unavailable WESTON BORJA Primary Care Physician LEONARD ESPITIA Admitting Unavailable JENNIFER, DR NIETO Primary Care Unavailable LEONARD ESPITIA Attending Unavailable LEONARD ESPITIA Consulting Unavailable KALEB LIRA Consulting Unavailable JENNIFER, DR NIETO Admitting Unavailable JENNIFER, DR NIETO Attending Unavailable JENNIFER, DR NIETO Consulting Unavailable JENNIFER, DR NIETO Primary Care Unavailable TESORAL, FRANKIE Primary Care Unavailable TESORAL, FRANKIE Admitting Unavailable TESORAL, FRANKIE Attending Unavailable TESORAL, FRANKIE Consulting Unavailable [...] Unavailable Unavailable Unavailable Weston Borja MD Unavailable Weston Borja MD Primary Care Provider Thursday Mercedez LANG Unavailable Frankie Irby DO Unavailable Frankie Irby DO Unavailable TITA WESTBROOK Attending Unavailable BORJA, WESTON Matta Attending Unavailable BORJA, WESTON B Attending Unavailable BORJA, WESTON B Attending Unavailable HEMMERTITA Attending Unavailable OBRJA, WESTON Matta Attending Unavailable GEORGIE, MERRY Juarez Attending Unavailable GEORGIE, MERRY Juarez Attending Unavailable BORJA, WESTON Matta Attending Unavailable TIMMISANTWON H Attending Unavailable BORJA, WESTON B Referring Unavailable BRINK, SYBIL Attending Unavailable BORJA, WESTON B Referring Unavailable BRINK, SYBIL Attending Unavailable BORJA, WESTON B Referring Unavailable BORJA, WESTON B Attending Unavailable BLACKSTON, ALEXIS Bay Attending Unavailable BORJA, WESTON B Referring Unavailable BRINK, SYBIL Attending Unavailable BORJA, WESTON B Referring Unavailable BLACKSTON, ALEXIS Bay Attending Unavailable BORJA, [...] (1 source) Penicillin G Drug Allergy Unknown [facility] [employer] Other (20 sources) Penicillins; Translations: [penicillins] Drug allergy 3 Asthenia (finding), Other [facility] (20 sources) Penicillin V Drug Allergy 3 [facility] (20 sources) Ciprofloxacin Drug Allergy 4 Other [facility] Work Phone: Medications Current Medications Medication [...] Active Coreg 3.125 MG O rally Active cloNIDine hydrochloride 0.1 mg oral tablet (19 sources) Central alpha-2 Adrenergic Agonist Start: 02-13-2025 End: 08-12-2025 take 1 tablet by mouth every eight hours for hypertension cloNIDine (Catapres) 0.1 MG tablet Indications: Essential (primary) hypertension Take 1 tablet (0.1 mg) by mouth every 8 (eight) hours if needed for high blood pressure (Take if SBP is > 175) 60 tablet 5 02/13/2025 08/12/2025 Active End: 10-17-2024 cloNIDine (Catapres) 0.1 MG tablet Take by mouth 2 (two) times a day 10/17/2024 Discontinued (Therapy completed) fluticasone propionate 0.05 mg/actuat metered dose nasal spray (20 sources) Corticosteroid Start: 02-21-2025 take 2 spray(s) nasal route once daily fluticasone (Flonase) 50 MCG/ACT nasal spray Indications: Lesion of nasal cavity SPRAY 2 SPRAYS INTO EACH NOSTRIL EVERY DAY 16 mL 3 02/21/2025 Active Start: 07-20-2024 take 2 spray(s) nasa l route once [...] Active Start: 09-29-2022 Flonase 0.05 m g/inh [place] 2 spray(s), Nasal, Daily, Refill(s) 0 Start [...] EVERY DAY 90 tablet 3 04/20/2024 Active loratadine 10 mg oral tablet (20 sources) Start: 03-03-2025 take 1 tablet by mouth once daily loratadine (Claritin) 10 MG tablet Indications: Dysfunction of right eustachian tube TAKE 1 TABLET (10 MG) BY MOUTH DAILY. 90 tablet 3 03/03/2025 Active Start: 02-08-2025 End: 03-03-2025 take 1 tablet by mouth once daily loratadine (Claritin) 10 MG tablet Indications: Dysfunction of right eustachian tube Take 1 tablet (10 mg) by mouth Daily 30 tablet 2 02/08/2025 03/03/2025 Discontinued Start: 10-12-2024 End: 10-22-2024 take 1 tablet [...] me al Orally Once a day Active methylPREDNISolone (2 sources) Corticosteroid Start: 01-12-2025 End: 01-19-2025 methylPREDNISolone (Medrol Dospak) 4 MG tablets Indications: Atopic dermatitis, unspecified type Follow schedule on package instructions 21 tablet 01/12/2025 01/19/2025 Active nitrofurantoin, macrocrystals 25 mg / nitrofurantoin, monohydrate 75 mg oral capsule (4 sources) Nitrofuran Antibacterial Start: 03-16-2024 End: 03-23-2024 take 1 capsule by mouth in the morning nitrofurantoin, macrocrystal-monohydr ate, (Macrobid) 100 MG capsule Indications: Acute cystitis [...] 03/14/2024 Discontinued predniSONE 10 mg oral tablet (8 sources) Start: 02-08-2025 End: 02-17-2025 take 1 tablet by mouth three times [...] mg) Daily for 3 days. 18 tablet 02/08/2025 02/17/2025 Active Start: 10-12-2024 End: 10-21-2024 take 1 tablet [...] AT BEDTIME 90 tablet 3 04/20/2024 Active sulfamethoxazole 400 mg / trimethoprim 80 mg oral tablet (2 sources) Dihydrofolate Reductase Inhibitor Antibacterial, Sulfonamide Antimicrobial Start: 01-12-2025 End: 01-22-2025 take 1 tablet by mouth once sulfamethoxazole-trimethoprim (Bactrim) 400-80 MG tablet Indications: Folliculitis Take 1 tablet by mouth every 12 (twelve) hours for 10 days 20 tablet 01/12/2025 01/22/2025 Active tamsulosin hydrochloride 0.4 mg oral capsule (20 sources) alpha-Adrenergic Horacio Start: 12-08-2023 Tamsulosin Active MG PO December 08, 2023 12:00am [...] Refills(s) 0 Start Date: 09/29/22 Status: Ordered triamcinolone acetonide 5 mg/ml topical cream (5 sources) Corticosteroid Start: 03-06-2025 triamcinolone (Kenalog) 0.5 % cream Indications: Eczema, unspecified type Apply topically in the morning and before bedtime. 45 g 1 03/06/2025 Active Start: 01-12-2025 End: 01-12-2025 triamcinolone acetonide (Kenalog-40) injection 40 mg Start: 01-12-2025 End: 01-12-2025 inject 40 mg by intramuscular injection once 40 mg, Intramuscular, Once, On Delicia 01/12/25 at 1445, For 1 dose Start: 01-12-2025 End: 01-12-2025 triamcinolone acetonide (Kenalog-40) injection 40 mg Start: 01-12-2025 End: 01-12-2025 inject 40 mg by intramuscular injection once 40 mg, Intramuscular, Once, On Delicia 01/12/25 at 1445, For 1 dose Completed/Discontinued Medications Medication Drug Class(es) Dates Sig (Normalized) Sig (Original) furosemide 20 mg oral tablet (20 sources) Loop Diuretic Start: 12-10-2023 End: 05-16-2024 take 1 tablet by mouth once daily furosemide (Lasix) 20 MG tablet Indications: Localized edema Take 1 tablet (20 mg) by mouth Daily for 7 days 7 tablet 12/10/2023 05/16/2024 Discontinued hydroCHLOROthiazide 12.5 mg / losartan potassium 50 mg oral tablet (20 sources) Thiazide Diuretic, Angiotensin 2 Receptor Horacio Start: 07-18-2024 End: 07-18-2025 take 1 tablet by mouth once daily losartan-hydroCHL OROthiazide (Hyzaar) 50-12.5 MG tablet Indications: Primary hypertension Take 1 tablet by mouth Daily 07/18/2024 02/13/2025 Discontinued Start: 09-01-2022 take 1 tablet by basim th in the morning losartan-hydroCHLOROthiazide (Hyzaar) 50-12.5 MG tablet Take 1 tablet by mouth in the morning. 0 09/01/2022 Active Start: 09-01-2022 take 1 tablet by basim th once daily hydrochlorothiazide-losartan 12.5 mg-50 mg Tab 1 tab(s), Oral, Daily, Refill(s) 0 Start Date: 10/01/22 Status: Ordered hydrocortisone valerate 2 mg/ml topical cream (1 source) Corticosteroid Start: 03-03-2025 End: 03-06-2025 hydrocortisone (West-Yaakov) 0.2 % cream Indications: Eczema, unspecified type Apply topically in the morning and before bedtime. 45 g 1 03/03/2025 03/06/2025 Discontinued Problems Active Problems Problem Classification Problem Date Documented Date Episodic/Chronic Acute myocardial infarction (20 sources) Myocardial infarction; Translations: [ST elevation (STEMI) myocardial infarction involving other coronary artery of inferior wall] Onset: 01-17-2023 05-09-2019 Chronic Administrative/social admission (4 sources) Patient encounter status; Translations: [Other specified counseling] 05-16-2024 Episodic Allergic reactions (2 sources) Atopic dermatitis; Translations: [Atopic dermatitis, unspecified] 01-12-2025 Chronic Allergic reactions (1 source) Eczema; Translations: [Dermatitis, unspecified] 03-03-2025 Episodic Cardiac dysrhythmias (2 sources) Supraventricular tachycardia; Translations: [Paroxysmal supraventricular tachycardia] Onset: 10-02-2022 Chronic Cataract (20 sources) Bilateral age-related nuclear cataracts; Translations: [Age-related nuclear cataract, bilateral] Onset: 04-06-2023 04-06-2023 Chronic Coronary atherosclerosis and other heart disease (20 sources) Coronary arteriosclerosis; Translations: [Atherosclerotic heart disease of [place] coronary artery without angina pectoris] Onset: 08-19-2022 [...] 12-22-2022 12-22-2022 Chronic Other aftercare (1 source) senior care (current) use of aspirin; Translations: [CORRECTION CURRENT USE OF ASPIRIN] Onset: 08-19-2022 Episodic Other aftercare (1 source) 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 drugs; Translations: [CORRECTION USE ORAL HYPOGLYCEMIC DX] Onset: 08-19-2022 Episodic Other aftercare (1 source) Other usp (current) drug therapy; Translations: [OTH CORRECTION CURRENT DRUG THERAPY] Onset: 08-19-2022 Episodic Other [...] Translations: [Impacted cerumen, bilateral] 06-29-2024 Episodic Other ear and sense organ disorders (2 sources) Cerebrospinal fluid otorrhea; Translations: [CSF otorrhea] 02-21-2025 Episodic Other nervous system disorders (20 sources) [...] [Obesity, unspecified] Onset: 01-17-2023 11-18-2022 Chronic Other skin disorders (2 sources) Folliculitis; Translations: [Follicular disorder, unspecified] 01-12-2025 Episodic Other upper respiratory disease (4 sources) Allergic rhinitis; Translations: [Allergic rhinitis, unspecified] 02-13-2025 Chronic Other upper respiratory disease (2 sources) Nasal congestion; Translations: [Nasal congestion] 06-29-2024 Episodic Other upper respiratory disease (2 sources) Bleeding from nose; Translations: [Epistaxis] 06-29-2024 Episodic Otitis media and related conditions (11 sources) Dysfunction of right eustachian tube; Translations: [...] Test Name Value Interpretation Reference Range Facility Laboratory - Hematology and Cell countson 02-13-2025 HbA1c (Bld) [Mass fraction] 6.6 % [facility] No Panel Informationon 02-13 [facility] CORTISOL, TOTALon 12-02-2024 CORTISOL, TOTAL 20.4 mcg/dL Normal [facility] Comment on above: Result Comment: Refe rence Range: For 8 a.m.(7-9 a.m.) Specimen: 4.0-22.0 Reference Range: For 4 p.m.(3-5 p.m.) Specimen: 3.0-17.0 * Please interpret above results accordingly * Performed By: #### 8 66, 84219, 899, 367 #### [facility] [address], [address] [place], [place] [id number] Integrated Circuit Fabricator: Sagar Pathak MD #### [id number] #### [facility]/[address] [place], [place] Integrated Circuit Fabricator: Shan Ashby M.D.,PhD T3, [facility] 12-02-2024 Free T3 [Mass/Vol] 3.1 pg/mL Normal 2.3-4.2 [facility] Comment on above: Performed By: #### 8 66, 16890, 899, 367 #### [facility] [place] [id number] Integrated Circuit Fabricator: Sagar Pathak MD #### [id number] #### [facility]/[address] [place], [place] Integrated Circuit Fabricator: Shan Ashby M.D.,PhD T4, [facility] 12-02-2024 Free T4 [Mass/Vol] 1.0 ng/dL Normal 0.8-1.8 [facility] Comment on above: Performed By: #### 8 66, 47199, 899, 367 #### [facility] [place] [id number] Integrated Circuit Fabricator: Sagar Pathak MD #### [id number] #### [facility]/[address] [place], [place] Integrated Circuit Fabricator: Shan Ashby M.D.,PhD TESTOSTERONE, FREE (DIALYSIS ) AND TOTAL,[facility] 12-02-2024 TESTOSTERONE, FREE 52.1 pg/mL Normal 30.0-135.0 [facility] Comment on above: Result Comment: This test was developed and its analytical performance characteristics have been determined by [employer] [place], [place]. It has not been cleared or approved by the U.S. Food and Drug Administration. This assay has been validated pursuant to the CLIA regulations and is used for clinical purposes. Performed By: #### 8 87, 29492, 899, 367 #### [facility] [address], [address] [place] [id number] Integrated [employer] Fabricator: Sagar Pathak MD #### [id number] #### [facility] [address] [facility] [place], [place] Integrated Circuit Fabricator: Shan Ashby M.D.,PhD TESTOSTERONE, TOTAL, [place] 352 ng/dL Normal 250-1100 [facility] Comment on above: Result Comment: Men with clinically significant hypogonadal symptoms and testosterone values repeatedly in the range of the 200-300 ng/dL or less, may benefit from testosterone treatment after adequate risk and benefits counseling. For additional information, please refer to http://education.Transactis/faq/ [email or web address] (This link is being provided for informational/ educational purposes only.) This test was developed and its analytical performance characteristics have been determined by [facility] [place], [place]. It has not been cleared or approved by the U.S. Food and Drug Administration. This assay has been validated pursuant to the CLIA regulations and is used for clinical purposes. Performed By: #### 8 16, 37004, 899, 367 #### [facility] [address] [address] Integrated [employer] Fabricator: Sagar Pathak MD #### [id number] #### [facility] [address] [facility] [place], [place] Integrated Circuit Fabricator: Shan Ashby M.D.,PhD TSHon 12-02-2024 TSH Qn 1.20 m[IU]/L Normal 0.40-4.50 [facility] Comment on above: Performed By: #### 8 66, 63134, 899, 367 #### [facility] of [place] [address] Integrated Circuit Fabricator: Sagar Pathak MD #### [id number] #### [facility] [address] [facility] [place] [address] Integrated Circuit Fabricator: Shan Ashby M.D.,PhD Laboratory - Hematology and Cell countson 10-17-2024 HbA1c (Bld) [Mass fraction] 6.3 % [facility] No Panel Informationon 10-17 [facility] CBC (INCLUDES DIFF/PLT)on Basophils (Bld) [#/Vol] 0.048 10*3/uL Normal 0-200 [facility] Comment on above: Performed By: #### 6 399, 13777, 57939, 7600 #### [facility] of [place] [address] Integrated Circuit Fabricator: Sagar Pathak MD Basophils/100 WBC (Bld) 0.7 % Normal [facility] Comment on above: Performed By: #### 6 399, , 91391, 7600 #### [facility] of [place] [address] Integrated Circuit Fabricator: Sagar Pathak MD Eosinophils (Bld) [#/Vol] 0.476 10*3/uL Normal 15-500 [facility] Comment on above: Performed By: #### 6 399, 42602, 00632, 7600 #### [facility] of [place] [address] Integrated Circuit Fabricator: Sagar Pathak MD Eosinophils/100 WBC (Bld) 6.9 % Normal [facility] Comment on above: Performed By: #### 6 399, , 30503, 7600 #### [facility] of [place] [address] Integrated Circuit Fabricator: Sagar Pathak MD Erythrocyte distribution width (RBC) [Ratio] 14.4 % Normal 11.0-15.0 [facility] Comment on above: Performed By: #### 6 399, , 76328, 7600 #### [facility] of [address], [address] [place] [address] Integrated Circuit Fabricator: Sagar Patahk MD Hematocrit (Bld) [Volume fraction] 46.6 % Normal 38.5-50.0 [facility] Comment on above: Performed By: #### 6 399, 07264, 88787, 7600 #### [facility] of [place] [address] Integrated Circuit Fabricator: Sagar Pathak MD Hemoglobin (Bld) [Mass/Vol] 15.0 g/dL Normal 13.2-17.1 [facility] Comment on above: Performed By: #### 6 399, , 13578, 7600 #### [facility] of [place] [address] Integrated Circuit Fabricator: Sagar Pathak MD Lymphocytes (Bld) [#/Vol] 2.215 10*3/uL Normal 850-3900 [facility] Comment on above: Performed By: #### 6 399, , 15074, 7600 #### [facility] of [place] [address] Integrated Circuit Fabricator: Sagar Pathak MD Lymphocytes/100 WBC (Bld) 32.1 % Normal [facility] Comment on above: Performed By: #### 6 399, , 60657, 7600 #### [facility] of [place] [address] Integrated Circuit Fabricator: Sagar Pathak MD MCH (RBC) [Entitic mass] 27.6 pg Normal 27.0-33.0 [facility] Comment on above: Performed By: #### 6 399, 89909, 97196, 7600 #### [facility] of [place] [address] Integrated Circuit Fabricator: Sagar Pathak MD MCHC (RBC) [Mass/Vol] 32.2 [...] clinical condition. Performed By: #### 6 399, 18058, 91697, 7600 #### [facility] of [address], [address] [place] [address] Integrated Circuit Fabricator: Sagar Pathak MD MCV (RBC) [Entitic vol] 85.8 fL Normal 80.0-100.0 [facility] Comment on above: Performed By: #### 6 399, , 12018, 7600 #### [facility] of [place] [address] Integrated Circuit Fabricator: Sagar Pathak MD Monocytes (Bld) [#/Vol] 0.518 10*3/uL Normal 200-950 [facility] Comment on above: Performed By: #### 6 399, , 07270, 7600 #### [facility] of [address], [address] [place] [address] Integrated Circuit Fabricator: Sagar Pathak MD Monocytes/100 WBC (Bld) 7.5 % Normal [facility] Comment on above: Performed By: #### 6 399, , 23960, 7600 #### [facility] of [place] [address] Integrated Circuit Fabricator: Sagar Pathak MD Neutrophils (Bld) [#/Vol] 3.643 10*3/uL Normal 0305-5865 [facility] Comment on above: Performed By: #### 6 399, , 47563, 7600 #### [facility] of [address], [address] [place] [address] Integrated Circuit Fabricator: Sagar Pathak MD Neutrophils/100 WBC (Bld) 52.8 % Normal [facility] Comment on above: Performed By: #### 6 399, , 77924, 7600 #### [facility] of [place] [address] Integrated Circuit Fabricator: Sagar Pathak MD Platelet mean volume (Bld) [Entitic vol] 9.8 fL Normal 7.5-12.5 [facility] Comment on above: Performed By: #### 6 399, 54226, 97941, 7600 #### [facility] of [place] [address] Integrated Circuit Fabricator: Sagar Pathak MD Platelets (Bld) [#/Vol] 209 10*3/uL Normal 140-400 [facility] Comment on above: Performed By: #### 6 399, 95814, 79279, 7600 #### [facility] of [place] [address] Integrated Circuit Fabricator: Sagar Pathak MD RBC (Bld) [#/Vol] 5.43 10*6/uL Normal 4.20-5.80 [facility] Comment on above: Performed By: #### 6 399, 10661, 84240, 7600 #### [facility] of [address], [address] [place] [address] Integrated Circuit Fabricator: Sagar Pathak MD WBC (Bld) [#/Vol] 6.9 10*3/uL Normal 3.8-10.8 [facility] Comment on above: Performed By: #### 6 399, 71627, 59727, 7600 #### [facility] of [place] [address] Integrated Circuit Fabricator: Sagar Pathak MD [facility] METABOLIC P[facility] 07-01-2024 Albumin [Mass/Vol] 4.1 g/dL Normal 3.6-5.1 [facility] Comment on above: Performed By: #### 6 399, 17961, 09164, 7600 #### [facility] of [place] [address] Integrated Circuit Fabricator: Sagar Pathak MD Albumin/Globulin [Mass ratio] 1.4 {ratio} Normal 1.0-2.5 [facility] Comment on above: Performed By: #### 6 399, 65464, 43488, 7600 #### [facility] of [place] [id number] Integrated Circuit Fabricator: Sagar Pathak MD ALP [Catalytic activity/Vol] 68 U/L Normal 35-144 [facility] Comment on above: Performed By: #### 6 399, 36389, 40413, 7600 #### [facility] of [address], [address] [place] [address] Integrated Circuit Fabricator: Sagar Pathak MD ALT [Catalytic activity/Vol] 17 U/L Normal 9-46 [facility] Comment on above: Performed By: #### 6 399, 65325, 08332, 7600 #### [facility] of [address], [address] [place] [address] Integrated Circuit Fabricator: Sagar Pathak MD AST [Catalytic activity/Vol] 18 U/L Normal 10-35 [facility] Comment on above: Performed By: #### 6 399, 27765, 92486, 7600 #### [facility] of [address], [address] [place] [address] Integrated Circuit Fabricator: Sagar Pathak MD Bilirubin [Mass/Vol] 1.0 mg/dL Normal 0.2-1.2 [facility] Comment on above: Performed By: #### 6 399, 00621, 57454, 7600 #### [facility] [address], [address] [place] [address] Integrated Circuit Fabricator: Sagar Pathak MD BUN/CREATININE RATIO SEE NOTE: Normal 6-22 [facility] Comment on above: Result Comment: Not Reported: BUN and Creatinine are within reference range. Performed By: #### 6 399, 99543, 51396, 7600 #### [facility] of [address], [address] [place] [address] Integrated Circuit Fabricator: Sagar Pathak MD Calcium [Mass/Vol] 9.1 mg/dL Normal 8.6-10.3 [facility] Comment on above: Performed By: #### 6 399, 42202, 98256, 7600 #### [facility] of [address], [address] [place] [address] Integrated Circuit Fabricator: Sagar Pathak MD Chloride [Moles/Vol] 105 mmol/L Normal 98-110 [facility] Comment on above: Performed By: #### 6 399, 43751, 73530, 7600 #### [facility] [place] [address] Integrated Circuit Fabricator: Sagar Pathak MD CO2 [Moles/Vol] 25 mmol/L Normal 20-32 [facility] Comment on above: Performed By: #### 6 399, 97992, 48905, 7600 #### [facility] [place] [address] Integrated Circuit Fabricator: Sagar Pathak MD Creatinine [Mass/Vol] 0.84 mg/dL Normal 0.70-1.28 [facility] Comment on above: Performed By: #### 6 399, 61109, , 7600 #### [facility] [place] [address] Integrated Circuit Fabricator: Sagar Pathak MD GFR/1.73 sq M.predicted among non-blacks MDRD (S/P/Bld) [Vol rate/Area] 91 mL/min/{1.73_m2} Normal > OR = 60 [facility] Comment on above: Performed By: #### 6 399, , 04430, 7600 #### [facility] [place] [address] Integrated Circuit Fabricator: Sagar Pathak MD Globulin (S) [Mass/Vol] 2.9 g/dL Normal 1.9-3.7 [facility] Comment on above: Performed By: #### 6 399, 41170, 80865, 7600 #### [facility] of [place] [address] Integrated Circuit Fabricator: Sagar Pathak MD Glucose [Mass/Vol] 119 mg/dL High 65-99 [facility] Comment on above: Result Comment: Fasting reference interval For someone without known diabetes, a glucose value between 100 and 125 mg/dL is consistent with prediabetes and should be confirmed with a follow-up test. Performed By: #### 6 399, 16401, 90745, 7600 #### [facility] of [address], [address] [place] [address] Integrated Circuit Fabricator: Sagar Pathak MD Potassium [Moles/Vol] 4.4 mmol/L Normal 3.5-5.3 [facility] Comment on above: Performed By: #### 6 399, 97983, 14485, 7600 #### [facility] of [address], [address] [place] [address] Integrated Circuit Fabricator: Sagar Pathak MD Protein [Mass/Vol] 7.0 g/dL Normal 6.1-8.1 [facility] Comment on above: Performed By: #### 6 399, 72910, 05034, 7600 #### [facility] of [address], [address] [place] [address] Integrated Circuit Fabricator: Sagar Pathak MD Sodium [Moles/Vol] 139 mmol/L Normal 135-146 [facility] Comment on above: Performed By: #### 6 399, 50436, 85310, 7600 #### [facility] of [address], [address] [place] [address] Integrated Circuit Fabricator: Sagar Pathak MD Urea nitrogen [Mass/Vol] 16 mg/dL Normal 7-25 [facility] Comment on above: Performed By: #### 6 399, 50901, 35251, 7600 #### [facility] of [place] [address] Integrated Circuit Fabricator: Sagar Pathak MD LIPID PANEL, [facility] 06-03 Cholesterol [Mass/Vol] 143 mg/dL Normal <200 [facility] Comment on above: Order Comment: FASTI NG:YES FASTING: YES Performed By: #### 6 399, 49014, 01452, 7600 #### [facility] of [place] [address] Integrated Circuit Fabricator: Sagar Pathak MD Cholesterol in HDL [Mass/Vol] 55 mg/dL Normal > OR = 40 [facility] Comment on above: Order Comment: FASTI NG:YES FASTING: YES Performed By: #### 6 399, 81914, 24297, 7600 #### [facility] [address], [address] [place] [address] Integrated Circuit Fabricator: Sagar Pathak MD Cholesterol in LDL [Mass/Vol] [...] equation in the estimation of LDL-C. Jorge SS et al. ISAÍAS. 2013;310(19): 4035-7035 (http://education.DYNAG[employer] SL/faq/JJE331) Performed By: #### 6 399, 97231, 21490, 7600 #### [facility] [address], [address] [place] [address] [employer] Circuit [employer]ator: Sagar Pathak MD Cholesterol.total/C holesterol in HDL [Mass ratio] 2.6 {ratio} Normal <5.0 [facility] Comment on above: Order Comment: FASTI NG:YES FASTING: YES Performed By: #### 6 399, 51737, 94053, 7600 #### [facility] [address], [address] [place] [address] [employer]ator: Sagar Pathak MD NON HDL CHOLESTEROL 88 mg/dL (calc) Normal <130 [facility] Comment on above: Order Comment: FASTI NG:YES FASTING: YES Result Comment: For patients with diabetes plus 1 major ASCVD risk factor, treating to a non-HDL-C goal of <100 mg/dL (LDL-C of <70 mg/dL) is considered a therapeutic option. Performed By: #### 6 399, 31770, 70965, 7600 #### [facility] [address], [address] [place] [address] Integrated Circuit Fabricator: Sagar Pathak MD Triglyceride [Mass/Vol] 93 mg/dL Normal <150 [facility] Comment on above: Order Comment: FASTI NG:YES FASTING: YES Performed By: #### 6 399, 71940, 25411, 7600 #### [facility] [place] [address] [employer] Fab[employer]ator: Sagar Pathak MD PSA, TOTALon 07-01-2024 PSA, TOTAL 1.24 ng/mL Normal < OR = 4.00 [facility] Comment on above: Result Comment: The total PSA value from this assay system is standardized against the WHO standard. The test result will be approximately 20% lower when compared to the equimolar-standardized total PSA (Miriam Tony). Comparison of serial PSA results should be interpreted with this fact in mind. This test was performed using the Siemens chemiluminescent method. Values obtained from different assay methods cannot be used interchangeably. PSA levels, regardless of value, should not be interpreted as absolute evidence of the presence or absence of disease. Performed By: #### 6 399, 17334, 43705, 7600 #### [facility] [place] [address] [employer] Fab[employer]ator: Sagar Pathak MD TSH W/REFLEX TO FT4on 2024 TSH W/REFLEX TO FT4 1.24 mIU/L Normal 0.40-4.50 [facility] Comment on above: Performed By: #### 6 399, 09456, 84948, 7600 #### [facility] [place] [address] Integrated Circuit Fabricator: Sagar Pathak MD No Panel Informationon 06-29 [...] Procedure completion: Tolerated well, no immediate complications [facility] - Hematology and Cell countson 05-16-2024 HbA1c (Bld) [Mass fraction] 6.3 % [facility] No Panel Informationon 05-16 [facility] Urinalysis macro (dipstick) panel (U)on 03-07-2024 Bilirubin, UA Few Negative - 4(70) +++ mg/dL [facility] Blood, UA Positive Negative - 50 Gabriel/mcL [facility] Clarity, UA Cloudy [facility] Color, UA Straw [facility] Glucose, UA Negative Negative - 2000(110) ++++ mg/dL [facility] Interpretation and review of laboratory results Abnormal [facility] Ketones, UA Negative Negative - 160(16) ++++ mg/dL [facility] Leukocytes, UA Moderate Negative - 500+++ Luzma/mcL [facility] Nitrite, UA Negative Negative - Positive [facility] pH, UA 6.0 5 - 9 [facility] Protein, UA Trace Negative - 2000(20) ++++ mg/dL [facility] Spec Grav, UA 1.020 1 - 1.03 [facility] Urobilinogen, UA 1.0 0.2 - 12 mg/dL [facility] Ambulatory Visit Summaryon 0 01-13-2023 Ambulatory Visit Summary FRANKIE DE ANDA :1950 Visit Date:01/13/2023 Ambulatory Visit Instructions Your Care Team Attending Physician - JIMY BOWEN, Dakota Hoang Primary Care Physician - JENNIFER BOWEN, WESTON Matta This Is Your Medications List aspirin (aspirin 81 mg oral tablet) carvedilol (Coreg 12.5 mg Tab) fluticasone nasal (Flonase 0.05 mg/inh [place]) hydrochlorothiazide-los clinton (hydrochlorothiazide-lo sartan 12.5 mg-50 mg [...] Unchanged fluticasone nasal (Flonase 0.05 mg/ inh [place]) 2 Sprays Nasal Inhalation Every day Unchanged [...] of multiple and bilateral cerebral arteries [facility] General Surgery Office/Clini c Noteon 01-13-2023 [...] MIGUEL A Hawk Only if needed [address] [place] [address]- Additional Instructions: Problem List/Past Medical [...] tab(s), Oral, BID, PRN Flonase 0.05 mg/inh [place], 2 spray(s), Nasal, Daily hydrochlorothiazide-los clinton 12.5 [...] (COVID-19) mRNA BNT-162b2 vax 07/30/2020 Recorded [facility] Comment on above: Result Comment: Elec tronically Signed By: JIMY BOWEN, Dakota Hoang\.br\Date and Time Signed: 01/13/23 16:50 EDT Ambulatory Visit Summaryon 0 12-26-2022 Ambulatory Visit Summary FRANKIE DE ANDA :1950 Visit Date:12/26/2022 Ambulatory Visit Instructions Your Care Team Attending Physician - Dakota AHN MD Primary Care Physician - WESTON BORJA MD This Is Your Medications List aspirin (aspirin 81 mg oral tablet) carvedilol (Coreg 12.5 mg Tab) fluticasone nasal (Flonase 0.05 mg/inh [place]) hydrochlorothiazide-los clinton (hydrochlorothiazide-lo sartan 12.5 mg-50 mg Tab) metformin (metformin 500 mg Tab) rosuvastatin (Crestor 5 mg Tab) tolterodine (Detrol 2 mg Tab) Procedures Performed Repair of left inguinal hernia (12/10/2022), Rezum (04/19/2019), Circumcision, Tonsillectomy. What to do next Scheduled Follow-Up Appointments Thursday 4:00 PM EDT With: Dakota AHN MD Where: General Surgery Jimy/Yoly [facility] General Surgery Office/Clini c Noteon 12-26-2022 [...] tab(s), Oral, BID, PRN Flonase 0.05 mg/inh [place], 2 spray(s), Nasal, Daily hydrochlorothiazide-los clinton 12.5 [...] mRNA BNT-162b2 vax 07/30/2020 Recorded Normal [facility] Comment on above: Result Comment: Elec tronically Signed By: JIMY BOWEN, Dakota Aiken\Date and Time Signed: 12/26/22 16:45 EDT Ambulatory Visit Summaryon 0 12-17-2022 Ambulatory Visit Summary FRANKIE DE ANDA :1950 Visit Date:12/17/2022 Ambulatory Visit Instructions Your Care Team Attending Physician - Dakota AHN MD Primary Care Physician - WESTON BORJA MD This Is Your Medications List aspirin (aspirin 81 mg oral tablet) carvedilol (Coreg 12.5 mg Tab) fluticasone nasal (Flonase 0.05 mg/inh [place]) hydrochlorothiazide-los [place] (hydrochlorothiazide-lo sartan 12.5 mg-50 mg Tab) metformin (metformin 500 mg Tab) rosuvastatin (Crestor 5 mg Tab) tolterodine (Detrol 2 mg Tab) Procedures Performed Repair of left inguinal hernia (12/10/2022), Rezum (04/19/2019), Circumcision, Tonsillectomy. What to do next Scheduled Follow-Up Appointments Thursday 2:00 PM EDT With: JIMY BOWEN, Dakota Hoang Where: General Surgery Jimy/Yoly [facility] General Surgery Office/Clini c Noteon 12-17-2022 [...] tab(s), Oral, BID, PRN Flonase 0.05 mg/inh [place], 2 spray(s), Nasal, Daily hydrochlorothiazide-los [place]inton 12.5 [...] (COVID-19) mRNA BNT-162b2 vax 07/30/2020 Recorded [facility] Comment on above: Result Comment: Elec tronically Signed By: JIMY BOWEN, Dakota Aiken\Date and Time Signed: 12/17/22 15:10 EDT Operative Reporton Operative Report [id number]#1.00C D:127 [facility] Consultation Noteon 12-12-19 Consultation Note [id number]#1.00C D:127 [facility] Lab Reportson 12-11-2022 Lab Reports [id number]#1.00C D:127 [facility] Lab Reports [id number] D:127 [facility] Operative Reporton Operative Report [id number]#1.00C D:127 [facility] Lab Reportson 12-10-2022 Lab Reports [id number] D:127 [facility] Lab Reportson 12-03-2022 Lab Reports [id number]#1.00C D:127 [facility] Lab Reports [id number] D:127 [facility] RAD - MISCon 12-03-2022 RAD - MISC [id number] D:127 [facility] Consent for Procedure/Surger yon 11-19-2022 Consent for Procedure/Surgery [id number] D:127 [facility] Ambulatory Visit Summaryon 0 11-18-2022 Ambulatory Visit Summary FRANKIE DE ANDA :1950 Visit Date:11/18/2022 Ambulatory Visit Instructions Your Care Team Attending Physician - JIMY BOWEN, Dakota Hoang Primary Care Physician - JENNIFER BOWEN, WESTON Matta This Is Your Medications List aspirin (aspirin 81 mg oral tablet) carvedilol (Coreg 12.5 mg Tab) fluticasone nasal (Flonase 0.05 mg/inh [place]) hydrochlorothiazide-los [place] (hydrochlorothiazide-lo sartan 12.5 mg-50 mg [...] Unchanged fluticasone nasal (Flonase 0.05 mg/ inh [place]) 2 Sprays Nasal Inhalation Every day Unchanged [...] of multiple and bilateral cerebral arteries Normal [facility] General Surgery Office/Clini c Noteon 11-18-2022 General [...] multiple and bilateral cerebral arteries Procedure/Surgical History [facility] (04/19/2019), Circumcision, Tonsillectomy. Medications aspirin 81 mg oral tablet, 81 mg= 1 tab(s), Oral, Daily Coreg 12.5 mg Tab, 12.5 mg= 1 tab(s), Oral, BID Crestor 5 mg Tab, 5 mg= 1 tab(s), Oral, Once a day (at bedtime) Detrol 2 mg Tab, 2 mg= 1 tab(s), Oral, BID, PRN Flonase 0.05 mg/inh [place], 2 spray(s), Nasal, Daily hydrochlorothiazide-los clinton 12.5 [...] Father. Immuniza (more content not included)... [facility] Comment on above: Result Comment: Elec tronically Signed By: JIMY BOWEN, Dakota Hoang\.br\Date and Time Signed: 11/18/22 21:01 EDT Facesheeton 10-02-2022 Facesheet [id number]#1.00C D:127 [facility] Ambulatory Visit Summaryon 0 10-01-2022 Ambulatory [...] mg Tab) fluticasone nasal (Flonase 0.05 mg/inh [place]) hydrochlorothiazide-los [place] (hydrochlorothiazide-lo sartan 12.5 mg-50 mg Tab) metformin (metformin 500 mg Tab) rosuvastatin (Crestor 5 mg Tab) tolterodine (Detrol 2 mg Tab) Procedures Performed [facility] (04/19/2019), Circumcision, Tonsillectomy. Discharge Vitals Heart [...] Unchanged fluticasone nasal (Flonase 0.05 mg/ inh [place]) 2 Sprays Nasal Inhalation Every day Contact [...] of multiple and bilateral cerebral arteries [facility] LIPID PROFILEon 09-26-2022 CHOL-HDL RATIO NORM SEE BELOW Normal [facility] Comment on above: Result Comment: 3.3 - 4.4 LOW RISK 4.4 - 7.1 AVERAGE RISK 7.1 - 11.0 MODERATE RISK >11.0 HIGH RISK Performed By: #### A 1C #### [facility] [address] [place] [address] Dr. Vicky Bustos Cholesterol [Mass/Vol] 136 mg/dL Normal <=200 [facility] Comment on above: Performed By: #### A 1C #### [facility] [address] [place] [address] [address] Vicky Bustos Cholesterol in HDL [Mass/Vol] 49 mg/dL Normal 40-60 [facility] Comment on above: Performed By: #### A 1C #### [facility] [address] [place] [address] [address] Vicky Bustos Cholesterol in LDL [Mass/Vol] 67.0 mg/dL Normal [facility] Comment on above: Performed By: #### A 1C #### [facility] [address] [place] [address] [address] Vicky Bustos Cholesterol.total/C holesterol in HDL [Mass ratio] 2.8 {ratio} Normal [facility] Comment on above: Performed By: #### A 1C #### [facility] [address] [place] [address] [address] Vicky Bustos HDL NORMAL > or = 60 mg/dl - LO W CARDIOVASCULAR RISK <40 mg/dl - HIGH CARDIOVASCULAR RISK Normal [facility] Comment on above: Performed By: #### A 1C #### [facility] [address] [address] [address] Vicky Bustos LDL CALC NORMAL SEE BELOW Normal [facility] Comment on above: Result Comment: <100 mg/dl OPTIMAL 100 - 129 mg/dl NEAR OR ABOVE OPTIMAL 130 - 159 mg/dl BORDERLINE HIGH 160 - 189 mg/dl HIGH >190 mg/dl VERY HIGH Performed By: #### A 1C #### [facility] [address] [address] [address] Vicky Bustos Triglyceride [Mass/Vol] 100 mg/dL Normal <=150 [facility] Comment on above: Performed By: #### A 1C #### [facility] [address] [place] [address] [address] Vicky Bustos VLDL CALC 20.0 mg/dL Normal [facility] Comment on above: Performed By: #### A 1C #### [facility] [address] [place] [address] [address] Vicky Bustos PROF CHEM 8 (BAS METB)on Anion gap [Moles/Vol] 12.9 mmol/L Normal [facility] Comment on above: Performed By: #### A 1C #### [facility] [address] [place] [address] [address] Vicky Bustos Calcium [Mass/Vol] 9.3 mg/dL Normal 8.5-10.1 [facility] Comment on above: Performed By: #### A 1C #### [facility] [address] [place] [address] [address] Vicky Bustos Chloride [Moles/Vol] 100 mmol/L Normal 98-107 [facility] Comment on above: Performed By: #### A 1C #### [facility] [address] [place] [address] [address] Vicky Bustos CO2 [Moles/Vol] 30.7 mmol/L Normal 21.0-32.0 [facility] Comment on above: Performed By: #### A 1C #### [facility] [address] [address] [address] Vicky Bustos Creatinine [Mass/Vol] 0.93 mg/dL Normal 0.70-1.30 [facility] Comment on above: Performed By: #### A 1C #### [facility] [address] [address] [address] Vicky Bustos EGFR-AF TURKMEN >60 Normal >=60 [facility] Comment on above: Performed By: #### A 1C #### [facility] [address] [place] [address] [address] Vicky Bustos EGFR-NON AF TURKMEN >60 Normal >=60 [facility] Comment on above: Performed By: #### A 1C #### [facility] [address] [address] [address] Vicky Bustos Glucose [Mass/Vol] 139 mg/dL Critically high 74-106 [facility] Comment on above: Performed By: #### A 1C #### [facility] [address] [address] [address] Vicky Bustos Potassium [Moles/Vol] 4.6 mmol/L Normal 3.5-5.1 [facility] Comment on above: Performed By: #### A 1C #### [facility] [address] [address] [address] Vicky Bustos Sodium [Moles/Vol] 139 mmol/L Normal 136-145 [facility] Comment on above: Performed By: #### A 1C #### [facility] [address] [address] [address] Vicky Bustos Urea nitrogen [Mass/Vol] 14.0 mg/dL Normal 7.0-18.0 [facility] Comment on above: Performed By: #### A 1C #### [facility] [address] [address] [address] Vicky Bustos Urea nitrogen/Creatinine [Mass ratio] 15.1 mg/mg Normal [facility] Comment on above: Performed By: #### A 1C #### [facility] [address] [address] [address] Vicky Bustos Physician Referralon 023 Physician Referral [id number] D:127 [facility] Office Visit (Cardiology)on 09-01-2022 Follow-up visit [...] Metabolic Panel; Status:Active - Retrospective Authorization; Requested for:[id number]; Lipid Panel; Status:Active - Retrospective Authorization; Requested for:[id number]; Primary hypertension Start: Losartan Potassium-HCTZ 50-12.5 MG Oral Tablet; TAKE 1 TABLET BY MOUTH EVERY DAY PSVT (paroxysmal supraventricular tachycardia) IO EKG Electrocardiogram- 12 Lead; Status:Complete; Done: 01Sep2022 SocHx: Never a smoker Tobacco Use Screening; Status:Complete; Done: 01Sep2022 Patient Instructions Please bring all medicines, vitamins, [...] All o (more content not included)... Normal [facility] CARDIAC GERRY 3-6on 3 CK [Catalytic activity/Vol] 134 U/L Normal 39-308 [facility] Comment on above: Performed By: #### A 1C #### [facility] [address] [place] [address] Dr. Vicky JAMES.MB [Mass/Vol] 1.32 ng/mL Normal <=3.60 [facility] Comment on above: Performed By: #### A 1C #### [facility] [address] [place] [address] Dr. Vicky Bustos HSTROP 7.3 pg/mL Normal 4.0-76.1 [facility] Comment on above: Result Comment: CUT- OFF POINTS HAVE BEEN ESTABLISHED BASED ON THE FOURTH UNIVERSAL DEFINITIONS OF MYOCARDIAL INFARCTION. THE UPPER REFERENCE LIMIT (URL) OF TROPONIN, DEFINED THE 99TH PERCENTILE OF cTnI DISTRIBUTION IN A REFERENCE POPULATION, HAS BEEN CONFIRMED THE DECISION THRESHOLD FOR TX DIAGNOSIS. Performed By: #### A 1C #### [facility] [address] [address] [address] Vicky Bustos CARDIAC GERRY ADMITon 023 CK [Catalytic activity/Vol] 129 U/L Normal 39-308 [facility] Comment on above: Performed By: #### C MADM, BMP #### [facility] [address] [address] [address] Yilan Bustos CK.MB [Mass/Vol] 1.21 ng/mL Normal <=3.60 [facility] Comment on above: Performed By: #### C GUILLERMINA, BMP #### [facility] [address] [place] [address] Dr. Vicky Bustos HSTROP 5.7 pg/mL Normal 4.0-76.1 [facility] Comment on above: Result Comment: CUT- OFF POINTS HAVE BEEN ESTABLISHED BASED ON THE FOURTH UNIVERSAL DEFINITIONS OF MYOCARDIAL INFARCTION. THE UPPER REFERENCE LIMIT (URL) OF TROPONIN, DEFINED THE 99TH PERCENTILE OF cTnI DISTRIBUTION IN A REFERENCE POPULATION, HAS BEEN CONFIRMED THE DECISION THRESHOLD FOR TX DIAGNOSIS. Performed By: #### C GUILLERMINA, BMP #### [facility] [address] [place] [address] Dr. Vicky Bustos KOBI 92 ng/mL Normal 16-96 [facility] Comment on above: Performed By: #### C GUILLERMINA BMP #### [facility] [address] [place] [address] Dr. Vicky Bustos CBC AUTO DIFFon 08-18-2022 BASO # 0.0 103/ul Normal 0.0-0.1 [facility] Comment on above: Performed By: #### C BC #### [facility] [address] [place] [address] Dr. Vicky Bustos Basophils/100 WBC (Bld) 0.4 % Normal 0.2-2.0 [facility] Comment on above: Performed By: #### C BC #### [facility] [address] [place] [address] Dr. Vicky Bustos EO # 0.4 103/ul Normal 0.0-0.7 [facility] Comment on above: Performed By: #### C BC #### [facility] [address] [place] [address] Dr. Vicky Bustos Eosinophils/100 WBC (Bld) 5.5 % Normal 0.9-7.0 [facility] Comment on above: Performed By: #### C BC #### [facility] [address] [place] [address] Dr. Vicky Bustos Erythrocyte distribution width (RBC) [Ratio] 13.9 % Normal 11.0-15.0 [facility] Comment on above: Performed By: #### C BC #### [facility] [address] [place] [address] Dr. Vicky Bustos Hematocrit (Bld) [Volume fraction] 41.1 % Critically low 42.0-54.0 [facility] Comment on above: Performed By: #### C BC #### [facility] [address] [place] [address] Dr. Vicky Bustos Hemoglobin (Bld) [Mass/Vol] 13.6 g/dL Critically low 14.0-18.0 [facility] Comment on above: Performed By: #### C BC #### [facility] [address] [place] [address] Dr. Vicky Bustos IG # 0.03 10e3/ul Normal 0.00-0.03 [facility] Comment on above: Performed By: #### C BC #### [facility] [address] [place] [address] Dr. Vicky Bustos IG % 0.4 % Normal 0.0-0.5 [facility] Comment on above: Performed By: #### C BC #### [facility] [address] [place] [address] Dr. Vicky Bustos LYMPH # 1.8 103/ul Normal 1.2-3.8 [facility] Comment on above: Performed By: #### C BC #### [facility] [address] [place] [address] Dr. Vicky Bustos Lymphocytes/100 WBC (Bld) 25.1 % Normal 20.5-60.0 [facility] Comment on above: Performed By: #### C BC #### [facility] [address] [place] [address] Dr. Vicky Bustos MANUAL DIFF REQ NO Normal [facility] Comment on above: Performed By: #### C BC #### [facility] [address] [place] [address] Dr. Vicky Bustos MCH (RBC) [Entitic mass] 27.4 pg Normal 25.9-34.0 [facility] Comment on above: Performed By: #### C BC #### [facility] [address] [address] [address] Vicky Bustos MCHC (RBC) [Mass/Vol] 33.1 g/dL Normal 29.9-35.2 [facility] Comment on above: Performed By: #### C BC #### [facility] [address] [address] [address] Vicky Bustos MCV (RBC) [Entitic vol] 82.7 fL Normal 80.0-94.0 [facility] Comment on above: Performed By: #### C BC #### [facility] [address] [address] [address] Vicky Bustos MONO # 0.6 103/ul Normal 0.3-0.8 [facility] Comment on above: Performed By: #### C BC #### [facility] [address] [address] [address] Vicky Bustos Monocytes/100 WBC (Bld) 8.3 % Normal 1.7-12.0 [facility] Comment on above: Performed By: #### C BC #### [facility] [address] [address] [address] Vicky Bustos NEUT # 4.3 103/ul Normal 1.4-6.5 [facility] Comment on above: Performed By: #### C BC #### [facility] [address] [address] [address] Vicky Bustos Neutrophils/100 WBC (Bld) 60.3 % Normal 43.0-75.0 [facility] Comment on above: Performed By: #### C BC #### [facility] [address] [address] [address] Vicky Bustos Platelet mean volume (Bld) [Entitic vol] 9.4 fL Critically low 9.5-13.5 [facility] Comment on above: Performed By: #### C BC #### [facility] [address] [address] [address] Vicky Bustos PLT 175 103/ul Normal 150-450 [facility] Comment on above: Performed By: #### C BC #### [facility] [address] [address] [address] Vicky Bustos RBC 4.97 106/ul Normal 4.70-6.10 [facility] Comment on above: Performed By: #### C BC #### [facility] [address] [address] [address] Vicky Bustos WBC 7.1 103/ul Normal 4.0-11.0 [facility] Comment on above: Performed By: #### C BC #### [facility] [address] [address] [address] Vicky Bustos PROF CHEM 8 (BAS METB)on Anion gap [Moles/Vol] 12.5 mmol/L Normal [facility] Comment on above: Performed By: #### C BILLYM, BMP #### [facility] [address] [place] [address] Dr. Vicky Bustos Calcium [Mass/Vol] 9.0 mg/dL Normal 8.5-10.1 [facility] Comment on above: Performed By: #### C BILLYM, BMP #### [facility] [address] [address] [address] Vicky Bustos Chloride [Moles/Vol] 102 mmol/L Normal 98-107 [facility] Comment on above: Performed By: #### C BILLYM, BMP #### [facility] [address] [place] [address] Dr. Vicky Bustos CO2 [Moles/Vol] 27.3 mmol/L Normal 21.0-32.0 [facility] Comment on above: Performed By: #### C MADM, BMP #### [facility] [address] [address] [address] Vicky Bustos Creatinine [Mass/Vol] 0.78 mg/dL Normal 0.70-1.30 [facility] Comment on above: Performed By: #### C MADM, BMP #### [facility] [address] [address] [address] Vicky Bustos EGFR-AF TURKMEN >60 Normal >=60 [facility] Comment on above: Performed By: #### C MADM, BMP #### [facility] [address] [address] [address] Vicky Bustos EGFR-NON AF TURKMEN >60 Normal >=60 [facility] Comment on above: Performed By: #### C MADM, BMP #### [facility] [address] [address] [address] Vicky Bustos Glucose [Mass/Vol] 160 mg/dL Critically high 74-106 [facility] Comment on above: Performed By: #### C MADM, BMP #### [facility] [address] [address] [address] Vicky Bustos Potassium [Moles/Vol] 3.8 mmol/L Normal 3.5-5.1 [facility] Comment on above: Performed By: #### C MADM, BMP #### [facility] [address] [address] [address] Vicky Bustos Sodium [Moles/Vol] 138 mmol/L Normal 136-145 [facility] Comment on above: Performed By: #### C MADM, BMP #### [facility] [address] [address] [address] Vicky Bustos Urea nitrogen [Mass/Vol] 12.0 mg/dL Normal 7.0-18.0 [facility] Comment on above: Performed By: #### C MADM, BMP #### [facility] [address] [address] [address] Vicky Bustos Urea nitrogen/Creatinine [Mass ratio] 15.4 mg/mg Normal [facility] Comment on above: Performed By: #### C MADM, BMP #### [facility] [address] [address] [address] Vicky Bustos XR CHEST 1 Von [...] by: KALEB LIRA Date: 2022-08-17 22:51 Normal [facility] ECHOCARDIO M/2D COMPLETEon 0 08-01-2022 ECHOCARDIO M/2D COMPLETE Patient: FRANKIE DE ANDA Exam Date: 08/01/2022 : 1950 Gender:M Ordering : DR WESTON BORJA M.D. Admission #: [id number] Family : Order #: [id number] CLICK HERE TO VIEW EXAM ECHOCARDIOGRAM REPORT PROCEDURE: CARDIO PULMONARY ECHOCARDIO M/2D COMP INDICATIONS: Cardiac murmur, [place], hypertension, diabetes COMPARISON: None. DESCRIPTION: COMPLETE ECHOCARDIOGRAM [...] M.D. on 08/07/2022 at 09:19 Normal [facility] CBC AUTO DIFFon 07-19-2022 BASO # 0.0 103/ul Normal 0.0-0.1 [facility] Comment on above: Performed By: #### C BC #### [facility] [address] [place] [address] Dr. Vicky Bustos Basophils/100 WBC (Bld) 0.4 % Normal 0.2-2.0 [facility] Comment on above: Performed By: #### C BC #### [facility] [address] [place] [address] Dr. Vicky Bustos EO # 0.2 103/ul Normal 0.0-0.7 [facility] Comment on above: Performed By: #### C BC #### [facility] [address] [place] [address] Dr. Vicky Bustos Eosinophils/100 WBC (Bld) 3.9 % Normal 0.9-7.0 [facility] Comment on above: Performed By: #### C BC #### [facility] [address] [address] [address] Vicky Bustos Erythrocyte distribution width (RBC) [Ratio] 14.3 % Normal 11.0-15.0 [facility] Comment on above: Performed By: #### C BC #### [facility] [address] [address] [address] Vicky Bustos Hematocrit (Bld) [Volume fraction] 38.1 % Critically low 42.0-54.0 [facility] Comment on above: Performed By: #### C BC #### [facility] [address] [place] [address] Dr. Vicky Bustos Hemoglobin (Bld) [Mass/Vol] 12.6 g/dL Critically low 14.0-18.0 [facility] Comment on above: Performed By: #### C BC #### [facility] [address] [address] [address] Vicky Bustos IG # 0.05 10e3/ul Critically high 0.00-0.03 [facility] Comment on above: Performed By: #### C BC #### [facility] [address] [address] [address] Vicky Bustos IG % 0.9 % Critically high 0.0-0.5 [facility] Comment on above: Performed By: #### C BC #### [facility] [address] [address] [address] Vicky Bustos LYMPH # 0.9 103/ul Critically low 1.2-3.8 [facility] Comment on above: Performed By: #### C BC #### [facility] [address] [address] [address] Vicky Bustos Lymphocytes/100 WBC (Bld) 16.3 % Critically low 20.5-60.0 [facility] Comment on above: Performed By: #### C BC #### [facility] [address] [place] [address] Dr. Vicky Bustos MANUAL DIFF REQ NO Normal [facility] Comment on above: Performed By: #### C BC #### [facility] [address] [place] [address] Dr. Vicky Bustos MCH (RBC) [Entitic mass] 27.2 pg Normal 25.9-34.0 [facility] Comment on above: Performed By: #### C BC #### [facility] [address] [place] [address] Dr. Vicky Bustos MCHC (RBC) [Mass/Vol] 33.1 g/dL Normal 29.9-35.2 [facility] Comment on above: Performed By: #### C BC #### [facility] [address] [place] [address] Dr. Vicky Bustos MCV (RBC) [Entitic vol] 82.3 fL Normal 80.0-94.0 [facility] Comment on above: Performed By: #### C BC #### [facility] [address] [place] [address] Dr. Vicky Bustos MONO # 0.9 103/ul Critically high 0.3-0.8 [facility] Comment on above: Performed By: #### C BC #### [facility] [address] [place] [address] Dr. Vicky Bustos Monocytes/100 WBC (Bld) 16.7 % Critically high 1.7-12.0 [facility] Comment on above: Performed By: #### C BC #### [facility] [address] [place] [address] Dr. Vicky Bustos NEUT # 3.5 103/ul Normal 1.4-6.5 [facility] Comment on above: Performed By: #### C BC #### [facility] [address] [place] [address] Dr. Vicky Bustos Neutrophils/100 WBC (Bld) 61.8 % Normal 43.0-75.0 [facility] Comment on above: Performed By: #### C BC #### [facility] [address] [place] [address] Dr. Vicky Bustos Platelet mean volume (Bld) [Entitic vol] 9.0 fL Critically low 9.5-13.5 [facility] Comment on above: Performed By: #### C BC #### [facility] [address] [place] [address] Dr. Vicky Bustos PLT 136 103/ul Critically low 150-450 [facility] Comment on above: Performed By: #### C BC #### [facility] [address] [place] [address] Dr. Vicky Bustos RBC 4.63 106/ul Critically low 4.70-6.10 [facility] Comment on above: Performed By: #### C BC #### [facility] [address] [place] [address] Dr. Vicky Bustos WBC 5.6 103/ul Normal 4.0-11.0 [facility] Comment on above: Performed By: #### C BC #### [facility] [address] [place] [address] Dr. Vicky Bustos ER URINE PROFILEon 3 Bilirubin Ql (U) Negative Normal NEGATIVE [facility] Comment on above: Performed By: #### E RUR #### [facility] [address] [place] [address] Dr. Vicky Bustos Clarity (U) CLEAR Normal CLEAR [facility] Comment on above: Performed By: #### E RUR #### [facility] [address] [place] [address] Dr. Vicky Bustos Color (U) LT. YELLOW Normal YELLOW [facility] Comment on above: Performed By: #### E RUR #### [facility] [address] [place] [address] Dr. Vicky Bustos ERUAHD A micrscopic examination will be performed if indicated. Normal [facility] Comment on above: Performed By: #### E RUR #### [facility] [address] [place] [address] Dr. Vicky Bustos Glucose Ql (U) Negative Normal NEGATIVE [facility] Comment on above: Performed By: #### E RUR #### [facility] [address] [place] [address] Dr. Vicky Bustos Hemoglobin Ql (U) SMALL Abnormal NEGATIVE [facility] Comment on above: Performed By: #### E RUR #### [facility] [address] [place] [address] Dr. Vicky Bustos Ketones Ql (U) Negative Normal NEGATIVE [facility] Comment on above: Performed By: #### E RUR #### [facility] [address] [place] [address] Dr. Vicky Bustos LEUKOCYTES Negative Normal NEGATIVE [facility] Comment on above: Performed By: #### E RUR #### [facility] [address] [place] [address] Dr. Vicky Bustos Nitrite Ql (U) Negative Normal NEGATIVE [facility] Comment on above: Performed By: #### E RUR #### [facility] [address] [place] [address] Dr. Vicky Bustos pH (U) 5.5 [pH] Normal 5-9 [facility] Comment on above: Performed By: #### E RUR #### [facility] [address] [place] [address] Dr. Vicky Bustos SPEC GRAVITY 1.025 Normal 1.005-<=1.025 [facility] Comment on above: Performed By: #### E RUR #### [facility] [address] [place] [address] Dr. Vicky Bustos UA PROTEIN TRACE Normal NEGATIVE/ TRACE [facility] Comment on above: Performed By: #### E RUR #### [facility] [address] [place] [address] Dr. Vicky Bustos UR MICRO IND NOT INDICATED Normal [facility] Comment on above: Performed By: #### E RUR #### [facility] [address] [place] [address] Dr. Vicky Bustos Urobilinogen Qn (U) 0.2 {Troy'U}/dL Normal 0.2 - 1. 0 [facility] Comment on above: Performed By: #### E RUR #### [facility] [address] [address] [address] Vicky Bustos PROF CHEM 8 (BAS METB)on Anion gap [Moles/Vol] 13.3 mmol/L Normal [facility] Comment on above: Performed By: #### B MP #### [facility] [address] [address] [address] Vicky Bustos Calcium [Mass/Vol] 8.6 mg/dL Normal 8.5-10.1 [facility] Comment on above: Performed By: #### B MP #### [facility] [address] [address] [address] Vicky Bustos Chloride [Moles/Vol] 98 mmol/L Normal 98-107 [facility] Comment on above: Performed By: #### B MP #### [facility] [address] [place] [address] Dr. Vicky Bustos CO2 [Moles/Vol] 24.9 mmol/L Normal 21.0-32.0 [facility] Comment on above: Performed By: #### B MP #### [facility] [address] [place] [address] Dr. Vicky Bustos Creatinine [Mass/Vol] 1.00 mg/dL Normal 0.70-1.30 [facility] Comment on above: Performed By: #### B MP #### [facility] [address] [place] [address] Dr. Vicky Bustos EGFR-AF TURKMEN >60 Normal >=60 [facility] Comment on above: Performed By: #### B MP #### [facility] [address] [place] [address] Dr. Vicky Bustos EGFR-NON AF TURKMEN >60 Normal >=60 [facility] Comment on above: Performed By: #### B MP #### [facility] [address] [place] [address] Dr. Vicky Bustos Glucose [Mass/Vol] 215 mg/dL Critically high 74-106 [facility] Comment on above: Performed By: #### B MP #### [facility] [address] [address] [address] Vicky Bustos Potassium [Moles/Vol] 4.2 mmol/L Normal 3.5-5.1 [facility] Comment on above: Performed By: #### B MP #### [facility] [address] [place] [address] Dr. Vicky Bustos Sodium [Moles/Vol] 132 mmol/L Critically low 136-145 [facility] Comment on above: Performed By: #### B MP #### [facility] [address] [place] [address] Dr. Vicky Bustos Urea nitrogen [Mass/Vol] 11.0 mg/dL Normal 7.0-18.0 [facility] Comment on above: Performed By: #### B MP #### [facility] [address] [place] [address] Dr. Vicky Bustos Urea nitrogen/Creatinine [Mass ratio] 11.0 mg/mg Normal [facility] Comment on above: Performed By: #### B MP #### [facility] [address] [place] [address] Dr. Vicky Bustos RESPIRATORY PANEL PLUSon Adenovirus Not detected Normal NOT DETECTED [facility] Comment on above: Performed By: #### R SPLUS #### [facility] [address] [place] [address] Dr. Vicky Matta. Parapertusis Not detected Normal NOT DETECTED [facility] Comment on above: Performed By: #### R SPLUS #### [facility] [address] [place] [address] Dr. Vicky Bustos B. Pertussis Not detected Normal NOT DETECTED [facility] Comment on above: Performed By: #### R SPLUS #### [facility] [address] [place] [address] Dr. Vicky Bustos Chlamydia Pneumoniae Not detected Normal NOT DETECTED [facility] Comment on above: Performed By: #### R SPLUS #### [facility] [address] [place] [address] Dr. Vicky Bustos Coronavirus 229E Not detected Normal NOT DETECTED [facility] Comment on above: Performed By: #### R SPLUS #### [facility] [address] [place] [address] Dr. Vicky Bustos Coronavirus HKU1 Not detected Normal NOT DETECTED [facility] Comment on above: Performed By: #### R SPLUS #### [facility] [address] [address] [address] Vicky Bustos Coronavirus NL63 Not detected Normal NOT DETECTED [facility] Comment on above: Performed By: #### R SPLUS #### [facility] [address] [place] [address] Dr. Vicky Bustos Coronavirus OC43 Not detected Normal NOT DETECTED [facility] Comment on above: Performed By: #### R SPLUS #### [facility] [address] [place] [address] Dr. Vicky Bustos Influenza A H1 Not detected Normal NOT DETECTED [facility] Comment on above: Performed By: #### R SPLUS #### [facility] [address] [place] [address] Dr. Vicky Bustos Influenza A H1 2009 Not detected Normal NOT DETECTED [facility] Comment on above: Performed By: #### R SPLUS #### [facility] [address] [place] [address] Dr. Vicky Bustos Influenza A H3 Not detected Normal NOT DETECTED [facility] Comment on above: Performed By: #### R SPLUS #### [facility] [address] [place] [address] Dr. Vicky Bustos Influenza B Not detected Normal NOT DETECTED [facility] Comment on above: Performed By: #### R SPLUS #### [facility] [address] [place] [address] Dr. Vicky Bustos Metapneumovirus Not detected Normal NOT DETECTED [facility] Comment on above: Performed By: #### R SPLUS #### [facility] [address] [place] [address] Dr. Vicky Bustos Mycoplas. Pneumoniae Not detected Normal NOT DETECTED [facility] Comment on above: Performed By: #### R SPLUS #### [facility] [address] [place] [address] Dr. Vicky Bustos Parainfluenza 1 Not detected Normal NOT DETECTED [facility] Comment on above: Performed By: #### R SPLUS #### [facility] [address] [place] [address] Dr. Vicky Bustos Parainfluenza 2 Not detected Normal NOT DETECTED [facility] Comment on above: Performed By: #### R SPLUS #### [facility] [address] [place] [address] Dr. Vicky Bustos Parainfluenza 3 Not detected Normal NOT DETECTED [facility] Comment on above: Performed By: #### R SPLUS #### [facility] [address] [place] [address] Dr. Vicky Bustos Parainfluenza 4 Not detected Normal NOT DETECTED [facility] Comment on above: Performed By: #### R SPLUS #### [facility] [address] [place] [address] Dr. Vicky Bustos Rhino/Enterovirus Not detected Normal NOT DETECTED [facility] Comment on above: Performed By: #### R SPLUS #### [facility] [address] [place] [address] Dr. Vicky Bustos RP2 Header 1 RESPIRATORY PANEL: VIRUSES Normal [facility] Comment on above: Performed By: #### R SPLUS #### [facility] [address] [place] [address] Dr. Vicky Bustos RP2 Header 2 RESPIRATORY PANEL: BACTERIA Normal [facility] Comment on above: Performed By: #### R SPLUS #### [facility] [address] [place] [address] Dr. Vicky Bustos RSV Not detected Normal NOT DETECTED [facility] Comment on above: Performed By: #### R SPLUS #### [facility] [address] [place] [address] Dr. Vicky Bustos SARS-CoV-2 (COVID-19) RNA JEFF+probe Ql (Unsp spec) Detected Abnormal NOT DETECTED [facility] Comment on above: Performed By: #### R SPLUS #### [facility] [address] [address] [address] Vicky Bustos PSA, FREE AND TOTAL RATIOon 01-15-2022 % Free PSA 28.5 % Normal [facility] Comment on above: Result Comment: The [...] men. Performed By: #### A 1C #### [facility] [address] [address] [address] Vicky Bustos Prostate specific Ag [Mass/Vol] 1.3 ng/mL Normal 0.0-4.0 [facility] Comment on above: Result Comment: [place] ECLIA methodology. . According to the [place] [employer], Serum PSA should decrease and [...] disease. Performed By: #### A 1C #### [facility] [address] [address] [address] Vicky Bustos PSA, Free 0.37 ng/mL Normal N/A [facility] Comment on above: Result Comment: [place]och e ECLIA methodology. Performed By: #### A 1C #### [facility] [address] [address] [address] Vicky Bustos CBC AUTO DIFFon 01-14-2022 BASO # 0.1 103/ul Normal 0.0-0.1 [facility] Comment on above: Performed By: #### C BC #### [facility] [address] [address] [address] Vicky Bustos Basophils/100 WBC (Bld) 0.7 % Normal 0.2-2.0 [facility] Comment on above: Performed By: #### C BC #### [facility] [address] [address] [address] Vicky Bustos EO # 0.5 103/ul Normal 0.0-0.7 [facility] Comment on above: Performed By: #### C BC #### [facility] [address] [address] [address] Vicky Bustos Eosinophils/100 WBC (Bld) 6.8 % Normal 0.9-7.0 [facility] Comment on above: Performed By: #### C BC #### [facility] [address] [address] [address] Vicky Bustos Erythrocyte distribution width (RBC) [Ratio] 13.9 % Normal 11.0-15.0 [facility] Comment on above: Performed By: #### C BC #### [facility] [address] [address] [address] Vicky Bustos Hematocrit (Bld) [Volume fraction] 44.6 % Normal 42.0-54.0 [facility] Comment on above: Performed By: #### C BC #### [facility] [address] [address] [address] Vicky Bustos Hemoglobin (Bld) [Mass/Vol] 14.7 g/dL Normal 14.0-18.0 [facility] Comment on above: Performed By: #### C BC #### [facility] [address] [address] [address] Vicky Bustos IG # 0.04 10e3/ul Critically high 0.00-0.03 [facility] Comment on above: Performed By: #### C BC #### [facility] [address] [address] [address] Vicky Bustos IG % 0.6 % Critically high 0.0-0.5 [facility] Comment on above: Performed By: #### C BC #### [facility] [address] [place] [address] Dr. Vicky Bustos LYMPH # 2.5 103/ul Normal 1.2-3.8 [facility] Comment on above: Performed By: #### C BC #### [facility] [address] [place] [address] Dr. Vicky Bustos Lymphocytes/100 WBC (Bld) 35.8 % Normal 20.5-60.0 [facility] Comment on above: Performed By: #### C BC #### [facility] [address] [place] [address] Dr. Vicky Bustos MANUAL DIFF REQ NO Normal [facility] Comment on above: Performed By: #### C BC #### [facility] [address] [place] [address] Dr. Vicky Bustos MCH (RBC) [Entitic mass] 27.7 pg Normal 25.9-34.0 [facility] Comment on above: Performed By: #### C BC #### [facility] [address] [place] [address] Dr. Vicky Bustos MCHC (RBC) [Mass/Vol] 33.0 g/dL Normal 29.9-35.2 [facility] Comment on above: Performed By: #### C BC #### [facility] [address] [place] [address] Dr. Vicky Bustos MCV (RBC) [Entitic vol] 84.0 fL Normal 80.0-94.0 [facility] Comment on above: Performed By: #### C BC #### [facility] [address] [place] [address] Dr. Vicky Bustos MONO # 0.5 103/ul Normal 0.3-0.8 [facility] Comment on above: Performed By: #### C BC #### [facility] [address] [place] [address] Dr. Vicky Bustos Monocytes/100 WBC (Bld) 7.3 % Normal 1.7-12.0 [facility] Comment on above: Performed By: #### C BC #### [facility] [address] [place] [address] Dr. Vicky Bustos NEUT # 3.4 103/ul Normal 1.4-6.5 [facility] Comment on above: Performed By: #### C BC #### [facility] [address] [place] [address] Dr. Vicky Bustos Neutrophils/100 WBC (Bld) 48.8 % Normal 43.0-75.0 [facility] Comment on above: Performed By: #### C BC #### [facility] [address] [place] [address] Dr. Vicky Bustos Platelet mean volume (Bld) [Entitic vol] 8.6 fL Critically low 9.5-13.5 [facility] Comment on above: Performed By: #### C BC #### [facility] [address] [place] [address] Dr. Vicky Bustos PLT 205 103/ul Normal 150-450 [facility] Comment on above: Performed By: #### C BC #### [facility] [address] [place] [address] Dr. Vicky Bustos RBC 5.31 106/ul Normal 4.70-6.10 [facility] Comment on above: Performed By: #### C BC #### [facility] [address] [place] [address] Dr. Vicky Bustos WBC 7.0 103/ul Normal 4.0-11.0 [facility] Comment on above: Performed By: #### C BC #### [facility] [address] [place] [address] Dr. Vicky Bustos GLYCOHEMOGLOBIN A1Con 2021 ADA RECOMMENDATION SEE BELOW Normal [facility] Comment on above: Result Comment: ADA RECOMMENDED LIMIT 4.0 - 6.0 ADA THERAPEUTIC TARGET < 7.0 ACTION SUGGESTED > 7.0 Performed By: #### A 1C #### [facility] [address] [place] [address] Dr. Vicky Bustos Glucose [Mass/Vol] 148 mg/dL Normal [facility] Comment on above: Performed By: #### A 1C #### [facility] [address] [place] [address] Dr. Vicky Bustos HbA1c (Bld) [Mass fraction] 6.8 % Critically high 4.5-6.2 [facility] Comment on above: Performed By: #### A 1C #### [facility] [address] [address] [address] Vicky Bustos LIPID PROFILEon 01-14-2022 CHOL-HDL RATIO NORM SEE BELOW Normal [facility] Comment on above: Result Comment: 3.3 - 4.4 LOW RISK 4.4 - 7.1 AVERAGE RISK 7.1 - 11.0 MODERATE RISK >11.0 HIGH RISK Performed By: #### A 1C #### [facility] [address] [address] [address] Vicky Bustos Cholesterol [Mass/Vol] 237 mg/dL Critically high <=200 [facility] Comment on above: Performed By: #### A 1C #### [facility] [address] [address] [address] Vicky Bustos Cholesterol in HDL [Mass/Vol] 54 mg/dL Normal 40-60 [facility] Comment on above: Performed By: #### A 1C #### [facility] [address] [address] [address] Vicky Bustos Cholesterol in LDL [Mass/Vol] 161.6 mg/dL Normal [facility] Comment on above: Performed By: #### A 1C #### [facility] [address] [address] [address] Vicky Bustos Cholesterol.total/C holesterol in HDL [Mass ratio] 4.4 {ratio} Normal [facility] Comment on above: Performed By: #### A 1C #### [facility] [address] [address] [address] Vicky Bustos HDL NORMAL > or = 60 mg/dl - LO W CARDIOVASCULAR RISK <40 mg/dl - HIGH CARDIOVASCULAR RISK Normal [facility] Comment on above: Performed By: #### A 1C #### [facility] [address] [address] [address] Vicky Bustos LDL CALC NORMAL SEE BELOW Normal [facility] Comment on above: Result Comment: <100 mg/dl OPTIMAL 100 - 129 mg/dl NEAR OR ABOVE OPTIMAL 130 - 159 mg/dl BORDERLINE HIGH 160 - 189 mg/dl HIGH >190 mg/dl VERY HIGH Performed By: #### A 1C #### [facility] [address] [place] [address] Dr. Vicky Bustos Triglyceride [Mass/Vol] 107 mg/dL Normal <=150 [facility] Comment on above: Performed By: #### A 1C #### [facility] [address] [place] [address] Dr. Vicky Bustos VLDL CALC 21.4 mg/dL Normal [facility] Comment on above: Performed By: #### A 1C #### [facility] [address] [place] [address] Dr. Vicky Bustos PROF 14(COMP METB)on 022 Albumin [Mass/Vol] 3.8 g/dL Normal 3.4-5.0 [facility] Comment on above: Performed By: #### A 1C #### [facility] [address] [place] [address] Dr. Vicky Bustos Albumin/Globulin [Mass ratio] 1.0 {ratio} Normal [facility] Comment on above: Performed By: #### A 1C #### [facility] [address] [place] [address] Dr. Vicky Bustos ALP [Catalytic activity/Vol] 77 U/L Normal 46-116 [facility] Comment on above: Performed By: #### A 1C #### [facility] [address] [place] [address] Dr. Vicky Bustos ALT [Catalytic activity/Vol] 17 U/L Normal 16-63 [facility] Comment on above: Performed By: #### A 1C #### [facility] [address] [place] [address] Dr. Vicky Bustos Anion gap [Moles/Vol] 12.2 mmol/L Normal [facility] Comment on above: Performed By: #### A 1C #### [facility] [address] [place] [address] Dr. Vicky Bustos AST [Catalytic activity/Vol] 13 U/L Critically low 15-37 [facility] Comment on above: Performed By: #### A 1C #### [facility] [address] [address] [address] Vicky Bustos Bilirubin [Mass/Vol] 1.0 mg/dL Normal 0.2-1.0 [facility] Comment on above: Performed By: #### A 1C #### [facility] [address] [address] [address] Vicky Bustos Calcium [Mass/Vol] 8.7 mg/dL Normal 8.5-10.1 [facility] Comment on above: Performed By: #### A 1C #### [facility] [address] [address] [address] Vicky Bustos Chloride [Moles/Vol] 100 mmol/L Normal 98-107 [facility] Comment on above: Performed By: #### A 1C #### [facility] [address] [place] [address] Dr. Vicky Bustos CO2 [Moles/Vol] 27.1 mmol/L Normal 21.0-32.0 [facility] Comment on above: Performed By: #### A 1C #### [facility] [address] [place] [address] Dr. Vicky Bustos Creatinine [Mass/Vol] 0.92 mg/dL Normal 0.70-1.30 [facility] Comment on above: Performed By: #### A 1C #### [facility] [address] [place] [address] Dr. Vicky Bustos EGFR-AF TURKMEN >60 Normal >=60 [facility] Comment on above: Performed By: #### A 1C #### [facility] [address] [place] [address] Dr. Vicky Bustos EGFR-NON AF TURKMEN >60 Normal >=60 [facility] Comment on above: Performed By: #### A 1C #### [facility] [address] [place] [address] Dr. Vicky Bustos Globulin (S) [Mass/Vol] 3.9 g/dL Normal [facility] Comment on above: Performed By: #### A 1C #### [facility] [address] [address] [address] Vicky Bustos Glucose [Mass/Vol] 120 mg/dL Critically high 74-106 [facility] Comment on above: Performed By: #### A 1C #### [facility] [address] [address] [address] Vicky Bustos Potassium [Moles/Vol] 4.3 mmol/L Normal 3.5-5.1 [facility] Comment on above: Performed By: #### A 1C #### [facility] [address] [address] [address] Vicky Bustos Protein [Mass/Vol] 7.7 g/dL Normal 6.4-8.2 [facility] Comment on above: Performed By: #### A 1C #### [facility] [address] [address] [address] Vicky Bustos Sodium [Moles/Vol] 135 mmol/L Critically low 136-145 [facility] Comment on above: Performed By: #### A 1C #### [facility] [address] [address] [address] Vicky Bustos Urea nitrogen [Mass/Vol] 18.0 mg/dL Normal 7.0-18.0 [facility] Comment on above: Performed By: #### A 1C #### [facility] [address] [address] [address] Vicky Bustos Urea nitrogen/Creatinine [Mass ratio] 19.6 mg/mg Normal [facility] Comment on above: Performed By: #### A 1C #### [facility] [address] [address] [address] Vicky [facility]ust[facility] SARS-CoV-2 (COVID-19) RNA JEFF+probe Ql (Unsp spec) Not detected Normal NOT DETECTED [facility] Comment on above: Result Comment: This test is not yet approved or cleared by the [place] FDA. When there are no FDA-approved or cleared tests available, and other criteria are met, FDA can make tests available under an emergency access mechanism called an Emergency Use Authorization (EUA). The EUA for this test is supported by the [employer] Maker of Health and Human Service's (HHS's) declaration [...] consistent with SARS-CoV-2. Performed By: #### [facility] #### [facility] [address] [place] [address] Dr. Vicky Bustos US carotid doppler BIon - US carotid doppler BI [facility] [place] [address] Ultrasound Report Signed Patient: Frankie De Anda MR#: [id number] : 1950 Acct:[id number] Age/Sex: 71 / M ADM Date: 11/12/21 Loc: [facility] Room: Type: [facility] Attending Dr: Melchor Mondragon MD Ordering Provider: [...] Melchor Mondragon M.D.11/12/2021 1:08 PM Dictation Location: [address] [address] Tech: Jaye Matos Transcribed By: STAN 11/12/21 1308 Dictated By: Melchor Mondragon MD 11/12/21 1308 Signed By: 11/12/21 1308 [facility] Vital Signs Date Time Vital Sign Value Performing Clinician Facility 02-21-2025 14:01-0400 Body height 165.1 cm Antwon Estrada MD Work Phone: [facility] 02-21-2025 14:01-0400 Body mass index (BMI) [Ratio] 32.95 kg/m2 Antwon Estrada MD Work Phone: [facility] 02-21-2025 14:01-0400 Body weight 89.81 kg Antwon Estrada MD Work Phone: [facility] 02-21-2025 14:01-0400 Diastolic blood pressure 62 mm[Hg] Antwon Estrada MD Work Phone: [facility] 02-21-2025 14:01-0400 Heart rate 81 /min Antwon Estrada MD Work Phone: [facility] 02-21-2025 14:01-0400 Systolic blood pressure 141 mm[Hg] Antwon Estrada MD Work Phone: [facility] 02-13-2025 15:23-0400 Body height 165.1 cm Weston Borja MD Work Phone: [facility] 02-13-2025 15:23-0400 Body mass index (BMI) [Ratio] 32.95 kg/m2 Weston Borja MD Work Phone: [facility] 02-13-2025 15:23-0400 Body weight 89.81 kg Weston Borja MD Work Phone: [facility] 02-13-2025 15:23-0400 Diastolic blood pressure 80 mm[Hg] Weston Borja MD Work Phone: [facility] 02-13-2025 15:23-0400 Heart rate 78 /min Weston Borja MD Work Phone: [facility] 02-13-2025 15:23-0400 SaO2% (BldA) [Mass fraction] 97 % Weston Borja MD Work Phone: [facility] 02-13-2025 15:23-0400 Systolic blood pressure 136 mm[Hg] Weston Borja MD Work Phone: [facility] 01-12-2025 14:02-0400 Body height 165.1 cm Merry Black [employer] Work Phone: [facility] 01-12-2025 14:02-0400 Body mass index (BMI) [Ratio] 33.45 kg/m2 Merry Black [employer] Work Phone: [facility] 01-12-2025 14:02-0400 Body weight 91.17 kg Merry [place] [employer] Work Phone: [facility] 01-12-2025 14:02-0400 Diastolic blood pressure 66 mm[Hg] Merry Georgie [employer] Work Phone: [facility] 01-12-2025 14:02-0400 Heart rate 72 /min Merry [place] [employer] Work Phone: [facility] 01-12-2025 14:02-0400 Respiratory rate 16 /min Merry [place] [employer] Work Phone: [facility] 01-12-2025 14:02-0400 SaO2% (BldA) [Mass fraction] 98 % Merry Georgie [employer] Work Phone: [facility] 01-12-2025 14:02-0400 Systolic blood pressure 132 mm[Hg] Merry [place] [employer] Work Phone: [facility] 01-05-2025 15:12-0400 Body height 165.1 cm Merry Georgie [employer] Work Phone: [facility] 01-05-2025 15:12-0400 Body mass index (BMI) [Ratio] 33.45 kg/m2 Merry Georgie [employer] Work Phone: [facility] 01-05-2025 15:12-0400 Body weight 91.17 kg Merry [place] [employer] Work Phone: [facility] 01-05-2025 15:12-0400 Diastolic blood pressure 82 mm[Hg] Merry Georgie [employer] Work Phone: [facility] 01-05-2025 15:12-0400 Heart rate 75 /min Merry Georgie [employer] Work Phone: [facility] 01-05-2025 15:12-0400 Respiratory rate 17 /min Merry Georgie [employer] Work Phone: [facility] 01-05-2025 15:12-0400 SaO2% (BldA) [Mass fraction] 98 % Merry Georgie [employer] Work Phone: [facility] 01-05-2025 15:12-0400 Systolic blood pressure 148 mm[Hg] Merry Georgie [employer] Work Phone: [facility] 10-17-2024 14:17-0400 Body height 165.1 cm Weston Borja MD Work Phone: [facility] 10-17-2024 14:17-0400 Body mass index (BMI) [Ratio] 34.45 kg/m2 Weston Borja MD Work Phone: [facility] 10-17-2024 14:17-0400 Body weight 93.89 kg Weston Borja MD Work Phone: [facility] 10-17-2024 14:17-0400 Diastolic blood pressure 86 mm[Hg] Weston Borja MD Work Phone: [facility] 10-17-2024 14:17-0400 Heart rate 75 /min Weston Borja MD Work Phone: [facility] 10-17-2024 14:17-0400 SaO2% (BldA) [Mass fraction] 97 % Weston Borja MD Work Phone: [facility] 10-17-2024 14:17-0400 Systolic blood pressure 138 mm[Hg] Weston Borja MD Work Phone: [facility] 10-12-2024 13:50-0400 Body height 165.1 cm Tita Hemmer PA Work Phone: [facility] 10-12-2024 13:50-0400 Body mass index (BMI) [Ratio] 34.25 kg/m2 Tita Hemmer PA Work Phone: [facility] 10-12-2024 13:50-0400 Body weight 93.35 kg Tita Hemmer PA Work Phone: [facility] 10-12-2024 13:50-0400 Diastolic blood pressure 88 mm[Hg] Tita Hemmer PA Work Phone: [facility] 10-12-2024 13:50-0400 Heart rate 83 /min Tita Hemmer PA Work Phone: [facility] 10-12-2024 13:50-0400 Respiratory rate 16 /min Tita Westbrook PA Work Phone: [facility] 10-12-2024 13:50-0400 SaO2% (BldA) [Mass fraction] 97 % Tita Westbrook PA Work Phone: [facility] 10-12-2024 13:50-0400 Systolic blood pressure 136 mm[Hg] Tita Westbrook PA Work Phone: [facility] 08-22-2024 13:59-0400 Body height 165.1 cm Weston Borja MD Work Phone: [facility] 08-22-2024 13:59-0400 Body mass index (BMI) [Ratio] 34.28 kg/m2 Weston Borja MD Work Phone: [facility] 08-22-2024 13:59-0400 Body weight 93.44 kg Weston Borja MD Work Phone: [facility] 08-22-2024 13:59-0400 Diastolic blood pressure 90 mm[Hg] Weston Borja MD Work Phone: [facility] 08-22-2024 13:59-0400 Heart rate 73 /min Weston Borja MD Work Phone: [facility] 08-22-2024 13:59-0400 SaO2% (BldA) [Mass fraction] 100 % Weston Borja MD Work Phone: [facility] 08-22-2024 13:59-0400 Systolic blood pressure 156 mm[Hg] Weston Borja MD Work Phone: [facility] 07-18-2024 14:23-0500 Body mass index (BMI) [Ratio] 34.68 kg/m2 Weston Borja MD Work Phone: [facility] 07-18-2024 14:23-0500 Body weight 94.53 kg Weston Borja MD Work Phone: [facility] 07-18-2024 14:23-0500 Diastolic blood pressure 95 mm[Hg] Weston Borja MD Work Phone: [facility] 07-18-2024 14:23-0500 Heart rate 68 /min Weston Borja MD Work Phone: [facility] 07-18-2024 14:23-0500 Respiratory rate 20 /min Weston Borja MD Work Phone: [facility] 07-18-2024 14:23-0500 SaO2% (BldA) [Mass fraction] 99 % Weston Borja MD Work Phone: [facility] 07-18-2024 14:23-0500 Systolic blood pressure 165 mm[Hg] Weston Borja MD Work Phone: [facility] 06-29-2024 15:40-0500 Diastolic blood pressure 96 mm[Hg] Tita Hemmer PA Work Phone: [facility] 06-29-2024 15:40-0500 Systolic blood pressure 162 mm[Hg] Tita Hemmer PA Work Phone: [facility] 06-29-2024 15:01-0500 Body height 165.1 cm Tita Hemmer PA Work Phone: [facility] 06-29-2024 15:01-0500 Body mass index (BMI) [Ratio] 34.85 kg/m2 Tita Hemmer PA Work Phone: [facility] 06-29-2024 15:01-0500 Body temperature 98.2 [degF] Tita Hemmer PA Work Phone: [facility] 06-29-2024 15:01-0500 Body weight 94.98 kg Tita Hemmer PA Work Phone: [facility] 06-29-2024 15:01-0500 Heart rate 72 /min Tita Hemmer PA Work Phone: [facility] 06-29-2024 15:01-0500 Respiratory rate 16 /min Tita Hemmer PA Work Phone: [facility] 06-29-2024 15:01-0500 SaO2% (BldA) [Mass fraction] 97 % Tita Hemmer PA Work Phone: [facility] 05-16-2024 15:26-0500 Body height 165.1 cm Weston Borja MD Work Phone: [facility] 05-16-2024 15:26-0500 Body mass index (BMI) [Ratio] 35.11 kg/m2 Weston Borja MD Work Phone: [facility] 05-16-2024 15:26-0500 Body weight 95.71 kg Weston Borja MD Work Phone: [facility] 05-16-2024 15:26-0500 Diastolic blood pressure 78 mm[Hg] Weston Borja MD Work Phone: [facility] 05-16-2024 15:26-0500 Heart rate 74 /min Weston Borja MD Work Phone: [facility] 05-16-2024 15:26-0500 SaO2% (BldA) [Mass fraction] 97 % Weston Borja MD Work Phone: [facility] 05-16-2024 15:26-0500 Systolic blood pressure 130 mm[Hg] Weston Borja MD Work Phone: [facility] 03-14-2024 13:43-0400 Body height 165.1 cm Weston Borja MD Work Phone: [facility] 03-14-2024 13:43-0400 Body mass index (BMI) [Ratio] 34.28 kg/m2 Weston Borja MD Work Phone: [facility] 03-14-2024 13:43-0400 Body weight 93.44 kg Weston Borja MD Work Phone: [facility] 03-14-2024 13:43-0400 Diastolic blood pressure 84 mm[Hg] Weston Borja MD Work Phone: [facility] 03-14-2024 13:43-0400 Heart rate 86 /min Weston Borja MD Work Phone: [facility] 03-14-2024 13:43-0400 SaO2% (BldA) [Mass fraction] 99 % Weston Borja MD Work Phone: [facility] 03-14-2024 13:43-0400 Systolic blood pressure 134 mm[Hg] Weston Borja MD Work Phone: [facility] 12-08-2023 13:16-0400 Body height 170.18 cm [facility] 12-08-2023 13:16-0400 Body mass index (BMI) [Ratio] 31.3 kg/m2 [facility] 12-08-2023 13:16-0400 Body temperature 96.7 [degF] [facility] 12-08-2023 13:16-0400 Body weight 90.71 kg [facility] 12-08-2023 13:16-0400 Diastolic blood pressure 80 mm[Hg] [facility] 12-08-2023 13:16-0400 Heart rate 74 /min [facility] 12-08-2023 13:16-0400 SaO2% (BldA) [Mass fraction] 97 % [facility] 12-08-2023 13:16-0400 Systolic blood pressure 142 mm[Hg] [facility] 11-18-2022 15:35-0400 Blood Pressure Location Dakota [facility] 11-18-2022 15:35-0400 Diastolic blood pressure 90 mm[Hg] Dakota [facility] 11-18-2022 15:35-0400 Heart rate 76 /min Dakota [facility] 11-18-2022 15:35-0400 Respiratory rate 16 /min Dakota [facility] 11-18-2022 15:35-0400 Systolic blood pressure 128 mm[Hg] Dakota CRUZL [facility] 10-01-2022 14:14-0400 Blood Pressure Location Dakota CRUZL [facility] 10-01-2022 14:14-0400 Diastolic blood pressure 78 mm[Hg] [facility] 10-01-2022 14:14-0400 Heart rate 70 /min Dakota [facility] 10-01-2022 14:14-0400 Respiratory rate 16 /min Dakota CRUZL [facility] 10-01-2022 14:14-0400 Systolic blood pressure 128 mm[Hg] Dakota CRUZL [facility] 11-12-2021 14:00-0400 Body height 167.64 cm Judith Gibson Other [facility] Other 11-12-2021 14:00-0400 Body mass index (BMI) [Ratio] 30.66 kg/m2 Judith Gibson Other [facility] Other 11-12-2021 14:00-0400 Body temperature 98 [degF] Judith Gibson Other [facility] Other 11-12-2021 14:00-0400 Body weight 86.18 kg Judith Arthur Other [facility] Other 11-12-2021 14:00-0400 Diastolic blood pressure 80 mm[Hg] Judith Gibson Other [facility] Other 11-12-2021 14:00-0400 Respiratory rate 18 /min Judith Gibson Other [facility] Other 11-12-2021 14:00-0400 SaO2% (BldA) [Mass fraction] 98 % Judith Gibson Other [facility] Other 11-12-2021 14:00-0400 Systolic blood pressure 134 mm[Hg] Judith Gibson Other [facility] [employer] Other Encounters Encounter Date Encounter Type Care Provider Facility Start: 03-03-2025 End: 03-06-2025 [facility] Comment on above: Dysfunction of right eustachian tube Eczema, unspecified type Start: 02-21-2025 End: 02-21-2025 Bamboo flowsjeffry Estrada MD Work Phone: [facility] Start: 02-21-2025 End: 02-21-2025 Bamjuliao daniel Estrada MD Work Phone: [facility] Start: 02-21-2025 End: 02-21-2025 Office outpatient new 45 minutes Antwon Estrada MD Work Phone: [facility] Comment on above: OME (otitis media wi th effusion), right (Primary Dx); Chronic dysfunction of right eustachian tube; CSF otorrhea Start: 02-21-2025 End: 02-21-2025 ambulatory ANTWON ESTRADA Not Available Start: 02-13-2025 End: 02-13-2025 Office outpatient visit 25 minutes Weston Borja MD Work Phone: [facility] Comment on above: Idiopathic progressi ve neuropathy (Primary Dx); 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, without long-term current use of insulin, unspecified laterality (HCC); Essential (primary) hypertension ; Allergic rhinitis, unspecified seasonality, unspecified trigger; Chronic dysfunction of right eustachian tube Start: 02-13-2025 End: 02-13-2025 ambulatory WESTON BORJA Not Available Start: 02-13-2025 End: 02-13-2025 [employer] Weston Borja MD Work Phone: [facility] Start: 02-13-2025 End: 02-13-2025 Bamboo flowsheet Weston Borja MD Work Phone: [facility] Start: 02-01-2025 End: 02-02-2025 Telephone encounter Weston Borja MD Work Phone: [facility] Start: 01-12-2025 End: 01-12-2025 Bamboo flowsheet eMrry Black [employer] Work Phone: [facility] Start: 01-12-2025 End: 01-12-2025 Bamboo flowsheet Merry Black [employer] Work Phone: [facility] Start: 01-12-2025 End: 01-12-2025 Office outpatient visit 25 minutes Merry Black [employer] Work Phone: [facility] Comment on above: Atopic dermatitis, u nspecified type (Primary Dx); Folliculitis Start: 01-12-2025 End: 01-12-2025 ambulatory MERRY BLACK Not Available Start: 01-05-2025 End: 01-05-2025 ambulatory MERRY BLACK Not Available Start: 01-05-2025 End: 01-05-2025 Office outpatient visit 25 minutes Merry Black [employer] Work Phone: [facility] Comment on above: Essential (primary) hypertension (Primary Dx) Start: 12-26-2024 End: 12-26-2024 Telephone encounter Weston Borja MD Work Phone: [facility] Comment on above: Med Refill Start: 12-01-2024 [...] Not Available Start: 08-22-2024 End: 08-22-2024 Bamboo flowsjeffry Borja MD Work Phone: [facility] Start: 08-22-2024 End: 08-22-2024 Bamboo flowsjeffry Borja MD Work Phone: [facility] [...] progressive neuropathy Start: 07-18-2024 End: 07-18-2024 Bamboo flowsheet Weston [...] right carotid artery; Coronary artery disease involving [place] coronary artery of [place] heart without angina pectoris (CMS/HCC) Start: 05-16-2024 End: 05-16-2024 ambulatory WESTON BORJA Not Available Start: 05-16-2024 End: 05-16-2024 Bamboo flowsheet Weston Borja MD Work Phone: [facility] Start: 05-16-2024 End: 05-16-2024 Bamboo flowsheet Weston Borja MD Work Phone: [facility] Start: 04-19-2024 End: 04-19-2024 ambulatory Sybil Garcia [employer] [facility] Comment on above: 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); Low back pain, unspecified back pain laterality, unspecified chronicity, unspecified whether sciatica present; Degeneration of intervertebral disc of lumbar region, unspecified whether pain present Start: 04-19-2024 End: 04-19-2024 Bamboo flowsheet Sybil Garcia [employer] [facility] Start: 04-19-2024 End: 04-19-2024 Bamboo flowsheet Sybil Brink [employer] [facility] Start: 04-14-2024 End: 04-14-2024 ambulatory Sybil Brink [employer] [facility] Comment on above: 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); Low back pain, unspecified back pain laterality, unspecified chronicity, unspecified whether sciatica present; Degeneration of intervertebral disc of lumbar region, unspecified whether pain present Start: 04-14-2024 End: 04-14-2024 Bamboo flowsheet Sybil Brink [employer] [facility] Start: 04-14-2024 End: 04-14-2024 Bamboo flowsheet Sybil Brink [employer] [facility] Start: 04-12-2024 End: 04-12-2024 ambulatory Sybil Brink [employer] [facility] Comment on above: 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); Low back pain, unspecified back pain laterality, unspecified chronicity, unspecified whether sciatica present; Degeneration of intervertebral disc of lumbar region, unspecified whether pain present Start: 04-12-2024 End: 04-12-2024 Bamboo flowsheet Sybil Brink HANDBAG FRAMER [facility] Start: 04-12-2024 End: 04-12-2024 Bamboo flowsheet Sybil Brink [employer]ER [facility] Start: 04-07-2024 End: 04-07-2024 Bamboo flowsheet Sybil Brink [employer] [facility] Start: 04-07-2024 End: 04-07-2024 Bamboo flowsheet Sybil Brink [employer]ER [facility] Start: 04-07-2024 End: 04-07-2024 ambulatory Sybil Brink [employer] [facility] Comment on above: 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); Low back pain, unspecified back pain laterality, unspecified chronicity, unspecified whether sciatica present; Degeneration of intervertebral disc of lumbar region, unspecified whether pain present Start: 04-05-2024 End: 04-06-2024 ambulatory Sybil Brink [employer] [facility] Comment on above: 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); Low back pain, unspecified back pain laterality, unspecified chronicity, unspecified whether sciatica present; Degeneration of intervertebral disc of lumbar region, unspecified whether pain present Start: 04-05-2024 End: 04-05-2024 Bamboo flowsheet Sybil Garcia [employer] [facility] Start: 04-05-2024 End: 04-05-2024 Bamboo flowsheet Sybil Garcia [employer]ER [facility] Start: 03-31-2024 End: 03-31-2024 ambulatory Clarisa Siddiqui [employer] [facility] Comment on above: 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); Low back pain, unspecified back pain laterality, unspecified chronicity, unspecified whether sciatica present; Degeneration of intervertebral disc of lumbar region, unspecified whether pain present Start: 03-31-2024 End: 03-31-2024 Bamboo flowsheet Clarisa Siddiqui HANDBAG FR[employer]ER [facility] Start: 03-31-2024 End: 03-31-2024 Bamboo flowsheet Clarisa Siddiqui HANDBAG [employer]ER [facility] Start: 03-29-2024 End: 03-29-2024 [...] Start: 03-23-2024 End: 03-24-2024 ambulatory Sybil Garcia [employer] [facility] Comment on above: 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); Low back pain, unspecified back pain laterality, unspecified chronicity, unspecified whether sciatica present; Degeneration of intervertebral disc of lumbar region, unspecified whether pain present Start: 03-23-2024 End: 03-23-2024 Bamboo flowsheet Sybil Garcia [employer]ER [facility] Start: 03-23-2024 End: 03-23-2024 Bamboo flowsheet Sybil Garcia [employer]AG [employer]ER [facility] Start: 03-15-2024 End: 03-15-2024 ambulatory Alexis Bay Toyinjob PT Work Phone: [facility] Comment [...] Start: 03-15-2024 End: 03-15-2024 Bamboo flowsheet Alexis Bay Toyinjob PT Work Phone: [facility] Start: [...] Start: 03-03-2024 End: 03-03-2024 ambulatory Sybil Garcia [employer] [facility] Comment on above: 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); Low back pain, unspecified back pain laterality, unspecified chronicity, unspecified whether sciatica present Start: 03-03-2024 End: 03-03-2024 Bamboo flowsheet Sybil Penaink HANDBAG FRAMER [facility] Start: 03-03-2024 End: 03-03-2024 Bamboo flowsheet Sybil Brink HANDBAG FR[employer]ER [facility] Start: 02-25-2024 End: 02-25-2024 Bamboo flowsheet Sybil Brink [employer]ER [facility] Start: 02-25-2024 End: 02-25-2024 Bamboo flowsheet Sybil Brink [employer]BAG [employer]ER [facility] Start: 02-25-2024 End: 02-25-2024 ambulatory Sybil Garcia [employer] [facility] Comment on above: Degenerative disc di sease, lumbar (Primary Dx); Low back pain, unspecified back pain laterality, unspecified chronicity, unspecified whether sciatica present Start: 02-22-2024 End: 02-22-2024 ambulatory Sybil Garcia HANDBAG FR[employer]ER [facility] Comment on above: Degenerative disc di sease, lumbar (Primary Dx); Low back pain, unspecified back pain laterality, unspecified chronicity, unspecified whether sciatica present Start: 02-22-2024 End: 02-22-2024 Bamboo flowsheet Sybil Garcia HANDBAG FRAMER [facility] Start: 02-22-2024 End: 02-22-2024 Bamboo flowsheet Sybil Brink HANDBAG FRAMER [facility] Start: 02-16-2024 End: 02-16-2024 [...] unspecified chronicity, unspecified whether sciatica present Start: 12-08-2023 End: 12-08-2023 Patient encounter procedure [facility] Vascular Surgery Work Phone: Start: 2023 Chart abstracting Rosales haro MD Work Phone: [facility] 210 Start: 01-20-2023 Rx Renewal Weston Borja Work Phone: -[facility] 250 DO Work Phone: Start: 01-13-2023 End: 01-14-2023 ambulatory Dakota R NILL Facility: [facility] Start: 01-13-2023 End: 01-13-2023 Patient encounter procedure Dakota R NILL General Surgery Nill/Said [facility] Start: 12-26-2022 End: 12-27-2022 ambulatory Dakota R NILL Facility: [place] Start: 12-26-2022 End: 12-26-2022 Patient encounter procedure Dakota R NILL General Surgery Nill/Said [place] Start: 12-17-2022 End: 12-18-2022 ambulatory Dakota R NILL Facility: [facility] Start: 12-17-2022 End: 12-17-2022 Patient encounter procedure Dakota R NILL General Surgery Nill/Said [facility] Start: 12-10-2022 End: 12-11-2022 ambulatory Dakota R NILL Facility:[facility]:[id number] Start: 11-18-2022 End: 11-19-2022 ambulatory Dakota R NILL Facility:[facility] Start: 11-18-2022 End: 11-18-2022 Patient encounter procedure Dakota R NILL General Surgery Nill/Said [facility] Start: 10-01-2022 End: 10-02-2022 ambulatory Dakota AHN Facility:[facility] Start: 10-01-2022 End: 10-01-2022 Patient encounter procedure Dakota AHN General Surgery Nill/Said [facility] Start: 09-26-2022 End: 09-27-[address] WESTON BORJA Facility:[facility] Start: 09-12-2022 ambulatory WESTON BORJA Facility :[facility] Start: 09-01-2022 ambulatory Weston Borja II Facility:[id number] Start: 08-17-2022 End: 08-18-2022 ambulatory LEONARD ESPITIA Facility:[facility] Start: 08-02-2022 End: 08-03-[address] WESTON BORJA Facility:[facility] Start: 07-19-2022 End: 07-19-2022 ambulatory LEONARD ESPITIA Facility:[facility] Start: 07-18-2022 End: 07-18-[address] WESTON BORJA Facility:[facility] Start: 01-15-2022 Encounter for genera l adult medical examination without abnormal findings FRANKIE IRBY [facility] Start: 01-14-2022 End: 01-15-2022 ambulatory FRANKIE IRBY Facility:[facility] Start: 01-14-2022 End: 01-15-2022 Encounter for general adult medical examination without abnormal findings FRANKIE IRBY Facility:[facility] Start: 12-25-2021 End: 12-25-2021 ambulatory FRANKIE IRBY Facility:[facility] Start: 11-12-2021 End: 11-12-2021 ambulatory Judith Gibson Other [facility] Other Start: 11-12-2021 Follow-up encounter Judith Restrepo PG Vascular Surgery Procedures Date Procedure Procedure Detail Performing Clinician Start: 02-13-2025 Hemoglobin glycosyla maude a1c Weston Borja MD Work Phone: Start: 10-17-2024 Hemoglobin glycosyla maude a1c Weston [...] 05-26-2026 Screening for malignant neoplasm of colon [facility] Start: 10-17-2025 Medicare Annual Wellness (AWV) Medicare Annual Wellness (AWV) [facility] Start: 05-23-2025 End: 05-23-2025 Patient encounter procedure 05/23/2025 2:20 PM EST Office Visit [facility] [address] [place] [address] Antwon Estrada MD [address] [place] [address] [facility] Start: 05-17-2025 End: 05-17-2025 Clinical Support 05/17/2025 1:00 PM EST Clinical Support [facility] [address] [place] [address] Candice Hickman, [facility] [address] [place] [address] [facility] Start: 05-16-2025 Medicare Annual Wellness (AWV) Medicare Annual Wellness (AWV) [facility] Start: 05-16-2025 Pneumococcal Vaccine: 65+ Years (1 of 2 - PCV) Pneumococcal Vaccine: 65+ Years (1 of 2 - PCV) [facility] Comment on above: Postponed from 1954 (Patient Refus ed) Postponed from 07/06 (Patient Refused) Start: 05-15-2025 Hemoglobin A1c measurement Diabetes: Hemoglobin A1C [facility] Start: 05-02-2025 End: 05-02-2025 Patient encounter procedure 05/02/2025 1:30 PM EST Office Visit [facility] [address] [place] [address] Joaquín Ghosh, [address] [place] [address] [facility] Start: 03-29-2025 End: 03-29-2025 Patient encounter procedure 03/29/2025 1:30 PM EDT [facility] [address] [facility] [address] [place] [address] Antwon Estrada MD [address] [facility] [address] [place] [address] [facility] Start: 03-07-2025 End: 03-07-2025 Patient encounter procedure 03/07/2025 2:00 PM EDT Office Visit [facility] [address] [place] [address] Joaquín Ghosh, DO [address] [place], [place] [id number] [facility] Start: 03-06-2025 End: 03-06-2025 Patient encounter procedure 03/06/2025 3:45 PM EDT [facility] [address] [place] [address] Weston Borja MD [address] [place] [address] [facility] Start: 02-21-2025 End: 02-21-2025 Patient encounter procedure 02/21/2025 2:00 PM EDT Office Visit [facility] [address] [place] [address] Antwon Estrada MD [address] [place] [address] Allergic rhinitis, unspecified seasonality, unspecified trigger; Chronic dysfunction of right eustachian tube [facility] Comment on above: Allergic rhinitis, unspecified seasonali ty, unspecified trigger; Chronic dysfunction of right eustachian tube Start: 02-13-2025 End: 02-13-2025 Patient encounter procedure [facility] Comment on above: Arrived Start: 02-13-2025 End: 02-13-2026 Cobalamin (Vitamin B12) [Mass/volume] in Serum or Plasma Vitamin B12 Lab Routine Idiopathic progressive neuropathy Expected: 02/13/2025 (Approximate), Expires: 02/13/2026 [facility] Work Phone: Comment on above: Expected: 02/13/2025 (Approximate), Expi res: 02/13/2026 Start: 02-13-2025 End: 02-13-2026 Vitamin B1 Vitamin B1 Lab Routine Idiopathic progressive neuropathy Expected: 02/13/2025 (Approximate), Expires: 02/13/2026 [facility] Comment on above: Expected: 02/13/2025 (Approximate), Expi res: 02/13/2026 Start: 02-13-2025 End: 02-13-2026 Vitamin B6 Vitamin B6 Lab Routine Idiopathic progressive neuropathy Expected: 02/13/2025 (Approximate), Expires: 02/13/2026 [facility] Comment on above: Expected: 02/13/2025 (Approximate), Expi res: 02/13/2026 Start: 01-30-2025 Influenza vaccination [facility] Start: 01-17-2025 Hemoglobin A1c measurement Diabetes: Hemoglobin A1C [facility] Start: 01-12-2025 End: 01-12-2025 Patient encounter procedure 01/12/2025 2:00 PM EDT Office Visit [facility] [address] [place] [address] Merry Black NP [address] [place] [address] Arrived [facility] Comment on above: Arrived Start: 12-01-2024 End: 12-01-2024 Patient encounter procedure 12/01/2024 11:30 AM EDT Office Visit [facility] [address] [place] [address] Weston Borja MD [address] [place] [address] Arrived [facility] Comment on above: [...] Expected: 10/17/2024 (Approximate), Expires: 10/17/2025 [facility] Work Phone: Comment on above: Expected: [...] [address] [place] [address] Tita Westbrook PA [address] [place] [address] Arrived [facility] Comment on above: Arrived Start: 08-22-2024 End: 08-22-2024 Patient encounter procedure 08/22/2024 2:00 PM EDT Office Visit [facility] [address] [place] [address] Weston Borja MD [address] [place] [address] Arrived [facility] Comment on above: Arrived Start: 08-14-2024 Hemoglobin A1c measurement Diabetes: Hemoglobin A1C [facility] Start: 07-22-2024 End: 07-22-2024 Patient encounter procedure 07/22/2024 10:15 AM EST Office Visit [facility] [address] [place] [address] Weston Borja MD [address] [place] [address] [facility] Start: 07-18-2024 End: 07-18-2024 Patient encounter procedure 07/18/2024 2:30 PM EST Office Visit [facility] [address] [place] [address] Weston Borja MD [address] [place] [address] Arrived [facility] Comment on above: Arrived Start: 07-17-2024 Urine screening for protein Diabetes: Urine Protein Screening [facility] Start: 07-11-2024 Influenza vaccination Influenza Vaccine (#1) [facility] Comment on above: Postponed from 01/31/2024 (Patient Refus ed) Start: 06-29-2024 End: 06-29-2024 Patient encounter procedure 06/29/2024 3:00 PM EST Office Visit [facility] [address] [place] [address] Tita Westbrook PA [address] [place] [address] Arrived [facility] Comment on above: [...] laterality (CMS/HCC) Expected: 05/16/2024 (Approximate), Expires: 05/16/2025 [facility] Comment on above: Expected: 05/16/2024 (Approximate), Expi res: 05/16/2025 Start: 04-22-2024 Medicare Annual Wellness (AWV) Medicare Annual Wellness (AWV) [facility] Start: 04-20-2024 End: 04-20-2024 Patient encounter procedure 04/20/2024 2:00 PM EST Office Visit [facility] [address] [place] [address] Joaquín Ghosh, [address] [place] [address] [facility] Start: 04-19-2024 End: 04-19-2024 ambulatory [facility] Comment on above: Arrived Start: 04-14-2024 End: 04-14-2024 ambulatory 04/14/2024 2:30 PM EST Treatment [facility] [address] [place] [address] Sybil Garcia, NICK [facility] Start: 04-12-2024 End: 04-12-2024 ambulatory 04/12/2024 3:30 PM EST Treatment [facility] [address] [place] [address] Sybil Garcia, HANDBAG FRAMER [facility] Start: 04-07-2024 End: 04-07-2024 ambulatory [facility] Comment on above: Arrived Start: 04-06-2024 Glaucoma screening Diabetes: Retinopathy Screening [facility] Start: 04-05-2024 End: 04-05-2024 ambulatory 04/05/2024 3:30 PM EST Treatment [facility] [address] [place] [address] Sybil Garcia HANDBAG FRAMER [facility] Start: 03-31-2024 End: 03-31-2024 ambulatory 03/31/2024 3:30 PM EDT Treatment [facility] [address] [place] [address] Clarisa Siddiqui PTA [facility] Start: 03-29-2024 End: 03-29-2024 ambulatory 03/29/2024 2:30 PM EDT Treatment [facility] [address] [place] [address] Alexis Ortiz, PT [address] [place] [address] [facility] Start: 03-23-2024 End: 03-23-2024 ambulatory 03/23/2024 4:00 PM EDT Treatment [facility] [address] [place] [address] Sybil Garcia, HANDBAG FRAMER Arrived [facility] Comment on above: Arrived Start: 03-17-2024 End: 03-17-2024 ambulatory 03/17/2024 2:30 PM EDT Treatment [facility] [address] [place] [address] Sybil Garcia, HANDBAG FRAMER [facility] Start: 03-15-2024 End: 03-15-2024 ambulatory 03/15/2024 2:30 PM EDT Treatment [facility] [address] [place] [address] Alexis Ortiz, PT [address] [place] [address] [facility] Start: 03-14-2024 End: 03-14-2024 Patient encounter procedure 03/14/2024 1:45 PM EDT Office Visit [facility] [address] [place] [address] Weston Borja MD [address] [place] [address] Arrived [facility] Comment on above: Arrived Start: 03-10-2024 End: 03-10-2024 ambulatory 03/10/2024 2:30 PM EDT Treatment [facility] [address] [place] [address] Sybil Garcia, HANDBAG FRAMER [facility] Start: 03-08-2024 End: 03-08-2024 ambulatory [facility] Start: 03-03-2024 End: 03-03-2024 ambulatory 03/03/2024 2:30 PM EDT Treatment [facility] [address] [place] [address] Sybil Garcia, HANDBAG FRAMER [facility] Start: 03-01-2024 End: 03-01-2024 ambulatory 03/01/2024 2:30 PM EDT Treatment [facility] [address] [place] [address] Alexis Ortiz, PT [address] [place] [address] [facility] Start: 02-25-2024 End: 02-25-2024 ambulatory 02/25/2024 1:30 PM EDT Treatment [facility] [address] [place] [address] Sybil Garcia HANDBAG FRAMER [facility] Start: 02-22-2024 End: 02-22-2024 ambulatory 02/22/2024 2:00 PM EDT Treatment [facility] [address] [facility] [address] [place] [address] Sybil Garcia HANDBAG FRAMER [facility] Start: 01-31-2024 Influenza vaccination Influenza Vaccine (#1) [facility] Start: 01-28-2024 Hemoglobin A1c measurement Diabetes: Hemoglobin A1C [facility] Start: 11-29-2023 Influenza vaccination Influenza Vaccine (#1) [facility] Comment on above: Postponed from 01/30/2023 (Patient Refus ed) Start: 10-28-2023 End: 10-28-2023 Patient encounter procedure 10/28/2023 2:15 PM EDT Office Visit [facility] [address] [facility] [address] [place] [address] Weston Borja MD [address] [facility] [address] [place] [address] [facility] Start: 09-29-2023 Hemoglobin A1c measurement Diabetes: Hemoglobin A1C [facility] Start: 2023 End: 2023 Patient encounter procedure 2023 3:20 PM EST Office Visit [facility] [address] [address] Rosales Palomino MD [address] [facility] [address] [id number] [facility] Start: 06-03-2023 FUV, Provider: Cosmo Diaz, Status: Pen, Time: 2:00 PM FUV, Provider: Cosmo Diaz, Status: Pen, Time: 2:00 PM [facility] 250 DO Work Phone: Start: 1967 Urine screening for protein Diabetes: Urine Protein Screening [facility] Start: 1954 Pneumococcal Vaccine: 65+ Years (1 - PCV) Pneumococcal Vaccine: 65+ Years (1 - PCV) [facility] Start: 1954 Pneumococcal Vaccine: 65+ Years (1 of 2 - PCV) Pneumococcal Vaccine: 65+ Years (1 of 2 - PCV) [facility] Start: 1948 Screening for malignant neoplasm of colon [facility] CBC W Auto Different ial panel - Blood CBC and differential Lab Routine Coronary artery disease involving [place] coronary artery of [place] heart without angina pectoris (CMS/HCC) Ordered: 05/16/2024 [facility] Work Phone: Comment on above: Ordered: 05/16/2024 Prostate specific Ag [Mass/volume] in Serum or Plasma PSA Lab Routine Prostate cancer screening Ordered: 05/16/2024 [facility] Comment on above: Ordered: 05/16/2024 US.doppler Carotid arteries - bilateral [facility] Immunizations Immunization Date Immunization Notes Care Provider Fa cili 03-12-2021 SARS-CoV-2 (COVID-19) mRNA BNT-162b2 [facility] [place] 08-21-2020 SARS-CoV-2 (COVID-19) mRNA BNT-162b2 [facility] [place] 07-30-2020 SARS-CoV-2 (COVID-19) mRNA BNT-162b2 [facility] [place] NEGATED: Highlighted row has not occurred! 7 pneumococcal polysaccharide vaccine, 23 valent Patient Objection Judith Gibson Other [facility] Other NEGATED: Highlighted row has not occurred! 7 influenza, seasonal, injectable Patient Objection Judith Gibson Other [facility] Other Payers Date Payer Category Payer Medicare (Managed Care) [employer] Member Subscriber Plan / Payer (Effective 2023-Present) Name: Frankie De Anda Relation to Subscriber: Self Name: Frankie De Anda Payer ID: [id number] (NAIC) Type: Not on file Address: [place] [id number] 2009 Medicare [id number] 1959 Medicare [id number] 2.16.840.1.740108.19 1959 Medicare [id number] 1959 Medicare [id number] 1959 Medicare [id number] 1959 Unknown [id number] 1948 Unknown [id number] 2.16.840.1.377353.3.579.2. 356 1948 Unknown [id number] 2.16.840.1.036860.3.579.2. 593 1948 Unknown [id number] 2.16.840.1.872453.3.579.2. 593 1948 Unknown [id number] 2.16.840.1.402748.3.579.2. 593 1948 Unknown [id number] 2.16.840.1.189001.3.579.2. 593 1948 Unknown [id number] 2.16.840.1.590958.3.579.2. 593 1948 Unknown [id number] 2.16.840.1.568700.3.579.2. 593 1948 Unknown [id number] 2.16.840.1.205388.3.579.2. 593 1948 Unknown [id number] 2.16.840.1.368757.3.579.2. 727 1948 Unknown [id number] 2.16.840.1.519944.3.579.2. 1948 Unknown [id number] 2.16.840.1.690641.3.579.2. 1948 Unknown [id number] 2.16.840.1.931515.3.579.2. 1948 Unknown [id number] 2.16.840.1.746447.3.579.2. 1948 Unknown [id number] 2.16.840.1.301981.3.579.2. 1948 Unknown [id number] 2.16840.1.208897.3.579.2. 1948 Unknown [id number] 2.840.1.579709.3.579.2. 1948 Unknown [id number] 2.16840.1.617960.3.579.2. 1258 1948 Unknown [id number] 2.16840.1.750067.3.579.2. 1258 1948 Unknown [id number] 2.16840.1.635712.3.579.2. 1258 1948 Unknown [id number] 2.840.1.635405.3.579.2. 1258 1948 Unknown [id number] 2.16840.1.227674.3.579.2. 1258 1948 Unknown [id number] 2.16.840.1.745440.3.579.2. 1258 1948 Unknown [id number] 2.16.840.1.096626.3.579.2. 1258 1948 Unknown [id number] 2.16.840.1.368222.3.579.2. 1258 1948 Unknown [id number] 2.16.840.1.073112.3.579.2. 1258 1948 Unknown [id number] 2.840.1.386329.3.579.2. 1258 1948 Unknown [id number] 2.16.840.1.152179.3.579.2. 1258 1948 Unknown [id number] 2.840.1.153665.3.579.2. 1258 1948 Unknown [id number] 2.840.1.442222.3.579.2. 1258 1948 Unknown [id number] 2.840.1.077902.3.579.2. 1258 1948 Unknown [id number] 2.0.1.533350.3.579.2. 1258 1948 Unknown [id number] 2.840.1.494682.3.579.2. 1258 1948 Unknown [id number] 2.840.1.642511.3.579.2. 1258 1948 Unknown [id number] 2.0.1.674910.3.579.2. 1258 1948 Unknown [id number] 2.840.1.039395.3.579.2. 1258 1948 Unknown [id number] 2.840.1.447572.3.579.2. 1258 1948 Unknown [id number] 2.840.1.277782.3.579.2. 1258 1948 Unknown [id number] 2.840.1.351057.3.579.2. 1258 1948 Unknown [id number] 2.840.1.013487.3.579.2. 1258 1948 Unknown [id number] 2.840.1.851637.3.579.2. 1259 Self-pay Self Pay [id number] Unknown Social History Date Type Detail Facility Unknown if ever smoked [facility] [employer] Other Start: 07-01-2023 End: 01-12-2025 Sex Assigned At [facility] Start: 10-01-2022 End: 01-14-2023 Tobacco smoking status Never smoked tobacco (finding) [facility] Tobacco smoking status Never [facility] Start: 07-01-2023 End: 01-12-2025 Social alcohol use Social alcohol use -[facility] 250 DO Work Phone: Start: 01-14-2023 Tobacco use and exposure Smokeless tobacco non-user [facility] Start: 07-01-2023 End: 02-21-2025 Alcohol intake Ex-drinker (finding) [facility] Start: 03-28-2023 Alcohol Comment caffeine: yes [facility] Start: 1950 Sex Assigned At Male [facility] Start: 02-09-2023 Gender identity Identifies as male gender (finding) [facility] Functional Status Date Assessment Result Facility 01-12-2025 Patient Health [facility] ionnaire 2 item (PHQ-2) [Reported] [facility] 01-05-2025 Patient Health [facility] ionnaire 2 item (PHQ-2) [Reported] [facility] 10-17-2024 Patient Health [facility] ionnaire 2 item (PHQ-2) [Reported] [facility] 10-12-2024 Patient Health [facility] ionnaire 2 item (PHQ-2) [Reported] [facility] 11-18-2022 Functional Status N/A [facility] [place] 10-01-2022 Functional Status N/A [facility] [place] Clinical Notes 11-12-2021 to 03-03-2025 Telephone Encounter - BRAEDEN Negron - 03/03/2025 10:44 AM EDTTelephone Encounter - BRAEDEN Negron - 03/03/2025 10:44 AM Pippa Estrada MD - 02/21/2025 2:00 PM EDT Note Date & Type Note Facility 03-03-2025 Telephone encounter Note Loratadine sent [facility] 03-03-2025 Miscellaneous Notes Loratadine sent documented in this encounter [facility] 02-21-2025 History of Present illness Narrative Subjective Patient ID: Frankie De Anda is a 74 y.o. male who presents for Allergic Rhinitis and Ear Problem (Rhinitis/chronic RT ET dysfunction) Pt reports a 6-8 month h/o RT ear fullness and roaring tinnitus. Previously resolved with claratin and prednisone. Sx always in the RT ear . Review of Systems All other systems reviewed and are negative. Family History Problem Relation Name Age of Onset Heart disease Mother Hyperlipidemia Mother Hypertension Mother Heart failure Father Heart disease Father Melanoma Sister Active Ambulatory Problems Diagnosis Date Noted Acute maxillary sinusitis 12/22/2022 Arthritis of left hip 12/22/2022 Class 1 obesity 12/22/2022 Coronary atherosclerosis 12/22/2022 Diabetic peripheral neuropathy (HCC) 12/22/2022 Essential (primary) hypertension 12/22/2022 Gastroesophageal reflux disease 12/22/2022 Hypercholesterolemia 12/22/2022 Lesion of nasal cavity 12/22/2022 OAB (overactive bladder) 12/22/2022 Osteoarthritis of knee 12/22/2022 Plantar wart of left foot 12/22/2022 Right sided sciatica 12/22/2022 Right-sided carotid artery disease 12/22/2022 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) 12/22/2022 BPH with urinary obstruction 01/17/2023 Cardiac murmur 01/17/2023 Elevated PSA 01/17/2023 Gross hematuria 01/17/2023 Hesitancy 01/17/2023 Urinary urgency 01/17/2023 Incomplete bladder emptying 01/17/2023 Inferior myocardial infarction (HCC) 01/17/2023 Irreducible left inguinal hernia 01/17/2023 Idiopathic progressive neuropathy 01/17/2023 Nocturia 01/17/2023 Urethral stricture 01/17/2023 Weak urine stream 01/17/2023 BMI 33.0-33.9,adult 01/17/2023 Obesity 01/17/2023 CAD (coronary artery disease) 01/17/2023 Hypertension 01/17/2023 GERD (gastroesophageal reflux disease) 01/17/2023 Elevated cholesterol 01/17/2023 Diabetes (HCC) 01/17/2023 Age-related nuclear cataract of both eyes 04/06/2023 Degenerative disc disease, lumbar 12/10/2023 Resolved Ambulatory Problems Diagnosis Date Noted Type 2 diabetes mellitus without complication ([facility]) 12/22/2022 Past Medical History: Diagnosis Date Acute recurrent maxillary sinusitis Cataract enlarged prostate prevention Heart attack ([facility]) 2005 High cholesterol Hyperlipidemia Nasal mass Neuropathy of foot, unspecified laterality Past Surgical History: Procedure Laterality Date CIRCUMCISION 2014 HERNIA REPAIR Left 12/10/2022 Inguinal with Mesh OTHER SURGICAL HISTORY 2016 carotid stenosis TONSILLECTOMY Allergies Allergen Reactions Ciprofloxacin Other Increased neuropathy Penicillin V Other Reaction(s): Unknown Penicillins Other Other Reaction(s): Weakness - general Current Outpatient Medications on File Prior to Visit Medication Sig Dispense Refill carvedilol (Coreg) 12.5 MG tablet TAKE 1 TABLET TWICE DAILY 180 tablet 3 cloNIDine (Catapres) 0.1 MG tablet Take 1 tablet (0.1 mg) by mouth every 8 (eight) hours if needed for high blood pressure (Take if SBP is > 175) 60 tablet 5 fluticasone (Flonase) 50 MCG/ACT nasal spray SPRAY 2 SPRAYS INTO EACH NOSTRIL EVERY DAY 16 mL 3 glimepiride (Amaryl) 2 MG tablet TAKE 1 TABLET EVERY DAY 90 tablet 3 loratadine (Claritin) 10 MG tablet Take 1 tablet (10 mg) by mouth Daily 30 tablet 2 pregabalin (Lyrica) 100 MG capsule Take 1 capsule (100 mg) by mouth in the morning and 1 capsule (100 mg) before bedtime. 60 capsule 5 rosuvastatin (Crestor) 5 MG tablet TAKE 1 TABLET AT BEDTIME 90 tablet 3 tamsulosin (Flomax) 0.4 MG 24 hr capsule TAKE 1 CAPSULE BY MOUTH EVERY DAY 90 capsule 3 [] predniSONE (Deltasone) 10 MG tablet Take 1 tablet (10 mg) by mouth 3 (three) times a day for 3 days, THEN 1 tablet (10 mg) 2 (two) times a day for 3 days, THEN 1 tablet (10 mg) Daily for 3 days. 18 tablet 0 No current facility-administered medications on file prior to visit. Objective Last Recorded Vitals Vitals: 02/21/25 1401 BP: 141/62 Pulse: 81 ENT Physical Exam Constitutional Appearance: patient appears well-developed and well-nourished, Head and Face Appearance: head appears normal and face appears atraumatic; Ear Ear Canals: left ear canal normal; Tympanic Membranes: left tympanic membrane normal; Ear comments: RT - thin clear ME effusion with bubbles Nose External Nose: nares patent bilaterally; external nose normal; Internal Nose: nasal mucosa normal; Oral Cavity/Oropharynx Lips: normal; Teeth: normal; Gums: gingiva normal; Tongue: normal; Oral mucosa: normal; Hard palate: normal; Neck Neck: neck normal; neck palpation normal; Thyroid: thyroid normal; Respiratory Inspection: breathing unlabored; normal breathing rate; Auscultation: breath sounds are clear; Cardiovascular Inspection: extremities are warm and well perfused; no peripheral edema present; Auscultation: regular rate and rhythm; Assessment/Plan Diagnoses and all orders for this visit: OME (otitis media with effusion), right Chronic dysfunction of right eustachian tube - Ambulatory referral to ENT CSF otorrhea Pt has a RT ME effusion that is very suspicious for CSF given its clarity and thinness. I will check a CT temporal bone to evaluate for a tegmen defect. Use flonase BID on the RT and check an audio. May need a tube if no sign of a tegmen defect and OME fails to resolve documented in this encounter [facility] 02-13-2025 History of Present illness Narrative Images from the original note were not included. Subjective Patient ID: Frankie De Anda is a 74 y.o. male who presents for Diabetes and Hypertension. Diabetes Mellitus Patient presents for follow up of diabetes. Current symptoms include: none. Patient denies foot ulcerations, hypoglycemia , nausea, and vomiting. Evaluation to date has included: fasting blood sugar, fasting lipid panel, hemoglobin A1C, and microalbuminuria. Home sugars: BGs range between 100 and 120. Hypertension Patient is here for follow-up of elevated blood pressure.Blood pressure is well controlled at home. Cardiac symptoms: none. Patient denies chest pain, claudication, fatigue, lower extremity edema, near-syncope, orthopnea, palpitations, paroxysmal nocturnal dyspnea, syncope, and tachypnea. Cardiovascular risk factors: advanced age (older than 55 for men, 65 for women), diabetes mellitus, hypertension, and male gender. Pt wondering if he needs to go back to see Dr Estrada he is having recurrent issues with his right ear Diabetes Hypertension Current Outpatient Medications on File Prior to [...] 1 tablet (10 mg) by mouth Daily 30 tablet 2 predniSONE (Deltasone) 10 MG tablet Take 1 tablet (10 mg) by mouth 3 (three) times a day for 3 days, THEN 1 tablet (10 mg) 2 (two) times a day for 3 days, THEN 1 tablet (10 mg) Daily for 3 days. 18 tablet 0 pregabalin (Lyrica) 100 MG capsule Take 1 capsule (100 mg) by mouth in the morning and 1 capsule (100 mg) before bedtime. 60 capsule 5 rosuvastatin (Crestor) 5 MG tablet TAKE 1 TABLET AT BEDTIME 90 tablet 3 tamsulosin (Flomax) 0.4 MG 24 hr capsule TAKE 1 CAPSULE BY MOUTH EVERY DAY 90 capsule 3 [DISCONTINUED] losartan-hydroCHLOROthiazide (Hyzaar) 50-12.5 MG tablet Take 1 tablet by mouth Daily [DISCONTINUED] loratadine (Claritin) 10 MG tablet Take 1 tablet (10 mg) by mouth Daily for 10 days 10 tablet 0 [DISCONTINUED] predniSONE (Deltasone) 10 MG tablet Take 1 tablet (10 mg) by mouth 3 (three) times a day for 3 days, THEN 1 tablet (10 mg) 2 (two) times a day for 3 days, THEN 1 tablet (10 mg) Daily for 3 days. 18 tablet 0 No current facility-administered medications on file [...] recurrent maxillary sinusitis CAD (coronary artery disease) Cataract Diabetes (HCC) enlarged prostate prevention GERD (gastroesophageal reflux disease) Heart attack (HCC) 2005 no stents or surgery needed High cholesterol Hyperlipidemia Hypertension Nasal mass Neuropathy of foot, unspecified laterality Past Surgical History: Procedure Laterality Date CIRCUMCISION 2014 HERNIA REPAIR Left 12/10/2022 Inguinal with Mesh OTHER SURGICAL HISTORY 2017 carotid stenosis TONSILLECTOMY Visit Vitals BP 136/80 Pulse 78 Ht 5' 5 Wt 198 lb SpO2 97% BMI 32.95 kg/m Smoking Status Never BSA 2.03 m Review of Systems Objective Physical Exam Constitutional: General: He is not in acute distress. Appearance: He is normal weight. He is not ill-appearing. HENT: Head: Normocephalic. Nose: Congestion present. Mouth/Throat: Pharynx: Posterior oropharyngeal erythema present. No oropharyngeal exudate. Cardiovascular: Rate and Rhythm: Normal rate and [...] normal. Judgment: Judgment normal. 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, without long-term current use of insulin, unspecified laterality (HCC) - POCT Glycated hemoglobin, total Essential (primary) hypertension - cloNIDine (Catapres) 0.1 MG tablet; Take 1 tablet (0.1 mg) by mouth every 8 (eight) hours if needed for high blood pressure (Take if SBP is > 175) - Stop Hyzaar- he is not taking, doesn't like it - Increase Carvedilol to 25mg po bid Allergic rhinitis, unspecified seasonality, unspecified trigger - Ambulatory referral to ENT; Future Chronic dysfunction of right eustachian tube - Ambulatory referral to ENT; Future Follow up in about 2 weeks (around 02/27/2025) for F/U med changes, Test/Lab Review. documented in this encounter [facility] 02-02-2025 Telephone encounter Note Left detailed message for patient regarding this [facility] 02-02-2025 Miscellaneous Notes Left detailed message for patient regarding this You can buy them at [facility] or any Pharmacy. We don't order them Patient wondered if he could get some sort of covid test ordered. He didn't know if he could do that here or if it could be ordered else where. documented in this encounter [facility] 02-01-2025 Telephone encounter Note You can buy them at [facility] or any Pharmacy. We don't order them [facility] 02-01-2025 Telephone encounter Note Patient wondered if he could get some sort of covid test ordered. He didn't know if he could do that here or if it could be ordered else where. [facility] 01-12-2025 History of Present illness Narrative Images from the original note were not included. Subjective Patient ID: Frankie De Anda is a 74 y.o. male who presents for No chief complaint on file.. Frankie presents today for a rash on his arms, chest, upper thighs, back and butt area. The itching is bad and he things it might be the Pregabalin reaction. He is on a 100 mg. He has taken a lower dose and she had no issues. He has stopped taking the medication. He had tried witch clinton and Cortizone cream and nothing has helped. Rash The current episode started in the past 7 days. The problem has been gradually worsening since onset. The rash is diffuse. The rash is characterized by redness and itchiness. He was exposed to nothing. Past treatments include anti-itch cream. The treatment provided no relief. Over the past 2 weeks, how often have you been bothered by any of the following problems? Little interest or pleasure in doing things: Not at all Feeling down, depressed, or hopeless: Not at all Patient Health Questionnaire-2 Score: 0 Current Outpatient Medications on File Prior to [...] tablet Take 1 tablet by mouth Daily pregabalin (Lyrica) 100 MG capsule Take 1 capsule (100 mg) by mouth in the morning and 1 capsule (100 mg) before bedtime. 60 capsule 5 rosuvastatin (Crestor) 5 MG tablet TAKE 1 TABLET AT BEDTIME 90 tablet 3 tamsulosin (Flomax) 0.4 MG 24 hr capsule TAKE 1 CAPSULE BY MOUTH EVERY DAY 90 capsule 3 No current facility-administered medications on file prior [...] recurrent maxillary sinusitis CAD (coronary artery disease) Cataract Diabetes (HCC) enlarged prostate prevention GERD (gastroesophageal reflux disease) Heart attack (HCC) 2006 no stents or surgery needed High cholesterol Hyperlipidemia Hypertension Nasal mass Neuropathy of foot, unspecified laterality Past Surgical History: Procedure Laterality Date CIRCUMCISION 2013 HERNIA REPAIR Left 12/10/2022 Inguinal with Mesh OTHER SURGICAL HISTORY 2017 carotid stenosis TONSILLECTOMY Visit Vitals Smoking Status Never Review of Systems Constitutional: Negative. HENT: Negative. Eyes: Negative. Respiratory: Negative. Cardiovascular: Negative. Gastrointestinal: Negative. Genitourinary: Negative. Musculoskeletal: Negative. Skin: Positive for rash. itching Neurological: Negative. Psychiatric/Behavioral: Negative. All other systems reviewed and are negative. Objective Physical Exam Vitals reviewed. Constitutional: Appearance: Normal appearance. HENT: Head: Normocephalic. Nose: Nose normal. Mouth/Throat: Mouth: Mucous membranes are moist. Pharynx: Oropharynx is clear. Eyes: Conjunctiva/sclera: Conjunctivae normal. Cardiovascular: Rate and Rhythm: Normal rate. Pulmonary: Effort: Pulmonary effort is normal. Skin: General: Skin is warm and dry. Findings: Rash present. Rash is macular, papular and urticarial. Comments: Pt noted to have foliculitis to bilateral thighs. Diffuse rash to rest of body. Arms, legs, torso, chest, back Neurological: General: No focal deficit present. Mental Status: He is alert and oriented to person, place, and time. Psychiatric: Mood and Affect: Mood normal. Behavior: Behavior normal. Thought Content: Thought content normal. Judgment: Judgment normal. Assessment/Plan Diagnoses and all orders for this visit: Atopic dermatitis, unspecified type - methylPREDNISolone (Medrol Dospak) 4 MG tablets; Follow schedule on package instructions - triamcinolone acetonide (Kenalog-40) injection 40 mg Pt has not had any new soaps, shampoo, or laundry soap. Rash appears to be an allergic reaction up source is unknown. Take steroids as ordered. No ibuprofen or naproxen while on steroids. If there is no improvement in rash, come back to the office for further treatment. Folliculitis - sulfamethoxazole-trimethoprim (Bactrim) 400-80 MG tablet; Take 1 tablet by mouth every 12 (twelve) hours for 10 days - triamcinolone acetonide (Kenalog-40) injection 40 mg Take ATB as ordered. Take probiotic or eat yogurt while on ATB. If there is no improvement in your thigh area next week, come back to the office for further treatment. No follow-ups on file. documented in this encounter [facility] 01-05-2025 History of Present illness Narrative Images from the original note were not included. Subjective Patient ID: Frankie De Anda is a 74 y.o. male who presents for No chief complaint on file.. Frankie presents today for an Er follow up for high blood pressure. He called yesterday with concerns for his BP running over 200/100. He did take both of his BP medications and hi BP came down. He was advised if his BP went back up and he continued to not feel well, that he was to go to the ER He had labs and an EKG at the ER. He came down while he was in the ER and given medication that helped his BP come down. Patient has not been taking the losartan everyday. Over the past 2 weeks, how often have you been bothered by any of the following problems? Little interest or pleasure in doing things: Not at all Feeling down, depressed, or hopeless: Not at all Patient Health Questionnaire-2 Score: 0 Current Outpatient Medications on File Prior to [...] tablet Take 1 tablet by mouth Daily pregabalin (Lyrica) 100 MG capsule Take 1 capsule (100 mg) by mouth in the morning and 1 capsule (100 mg) before bedtime. 60 capsule 5 rosuvastatin (Crestor) 5 MG tablet TAKE 1 TABLET AT BEDTIME 90 tablet 3 tamsulosin (Flomax) 0.4 MG 24 hr capsule TAKE 1 CAPSULE BY MOUTH EVERY DAY 90 capsule 3 No current facility-administered medications on file prior [...] recurrent maxillary sinusitis CAD (coronary artery disease) Cataract Diabetes (HCC) enlarged prostate prevention GERD (gastroesophageal reflux disease) Heart attack (HCC) 2006 no stents or surgery needed High cholesterol Hyperlipidemia Hypertension Nasal mass Neuropathy of foot, unspecified laterality Past Surgical History: Procedure Laterality Date CIRCUMCISION 2014 HERNIA REPAIR Left 12/10/2022 Inguinal with Mesh OTHER SURGICAL HISTORY 2017 carotid stenosis TONSILLECTOMY Visit Vitals Smoking Status Never Review of Systems Constitutional: Negative. HENT: Negative. Eyes: Negative. Respiratory: Negative. Cardiovascular: Negative. Gastrointestinal: Negative. Genitourinary: Negative. Musculoskeletal: Negative. Skin: Negative. Neurological: Negative. Psychiatric/Behavioral: Negative. All other systems reviewed and are negative. Endocrine: Negative. Objective Physical Exam Vitals reviewed. Constitutional: Appearance: Normal appearance. HENT: Head: Normocephalic. Nose: Nose normal. Mouth/Throat: Mouth: Mucous membranes are moist. Pharynx: Oropharynx is clear. Eyes: Conjunctiva/sclera: Conjunctivae normal. Cardiovascular: Rate and Rhythm: Normal rate and regular rhythm. Pulmonary: Effort: Pulmonary effort is normal. Breath sounds: Normal breath sounds. Abdominal: General: Bowel sounds are normal. Palpations: Abdomen is soft. Skin: General: Skin is warm and dry. Neurological: General: No focal deficit present. Mental Status: He is alert and oriented to person, place, and time. Psychiatric: Mood and Affect: Mood normal. Behavior: Behavior normal. Thought Content: Thought content normal. Judgment: Judgment normal. Assessment/Plan Diagnoses and all orders for this visit: Essential (primary) hypertension Pt was instructed to take his blood pressure medications as ordered. He has not been taking his Losartan ordered. He was only taking Coreg. He is to monitor his blood pressures at home and bring in a log with the next visit. He is to follow up in 1 month. He was instructed to monitor his dietary intake. No follow-ups on file. documented in this encounter [facility] 12-26-2024 Telephone encounter Note Rx was sent. [facility] 12-26-2024 Miscellaneous Notes Rx was sent. pregabalin (Lyrica) he said its usually 75 but he wondered if he could do [address] [facility] documented in this encounter [facility] 12-26-2024 Telephone encounter Note pregabalin (Lyrica) he said its usually 75 but he wondered if he could do [address] [facility] 10-17-2024 History of Present illness Narrative Images from [...] Word Registration: Apple, Watch, Lani Clock Drawing: Normal Clock - 2 Three Word Recall: 2/3 words correct - 2 Total Score (0-5 Points): 4 Pain Assessment Pain Score: 7 Advance Care Planning Do you have a living will?: Yes Do you have a medical power of defense attorney?: Yes Who is your medical power of defense attorney?: sister Objective : BP 138/86 Pulse [...] October 17, 2024 documented in this encounter [facility] 10-12-2024 History of Present illness Narrative Images from [...] recommend that patient follow up with Dr. Estrada for re-evaluation and possible further treatment due to persistent/recurrent nature of the symptoms. Follow up for Appointment As Scheduled. documented in this encounter [facility] 08-22-2024 History of Present illness Narrative Images from [...] for Routine F/U. documented in this encounter [facility] 07-18-2024 History of Present illness Narrative Images from the original note were not included. Subjective Patient ID: Frankie De Anda is a 74 y.o. male who presents for hypertension. Frankie is in today for hypertension, states yesterday his BP was 219/91 and went to [facility]. States they did an EKG, blood [...] week (around 07/25/2024). documented in this encounter [facility] 06-29-2024 History of Present illness Narrative Associated [...] 09/27/2024) for Hypertension. documented in this encounter [facility] 05-16-2024 History of Present illness Narrative Images [...] Do you have a medical power of defense attorney?: No Objective : BP 130/78 Pulse [...] right carotid artery Coronary artery disease involving [place] coronary artery of [place] heart without angina pectoris (CMS/HCC) - CBC and differential Orders Placed This Encounter Procedures POCT Glycated hemoglobin, total Electronically signed by Weston Borja MD on May 16, 2024 documented in this encounter [facility] 04-14-2024 History of Present illness Narrative Physical [...] on/off for several years. Had PT at [facility] which helped. Had increased pain while [...] to be instructed in home exercise program. Prison Goals: To be met in 10 weeks [...] sign below. Date: documented in this encounter [facility] 04-12-2024 History of Present illness Narrative Physical [...] on/off for several years. Had PT at [facility] which helped. Had increased pain while [...] to be instructed in home exercise program. Prison Goals: To be met in 10 weeks [...] 1:08 PM EST documented in this encounter [facility] 03-29-2024 History of Present illness Narrative Physical [...] on/off for several years. Had PT at [facility] which helped. Had increased pain while [...] to be instructed in home exercise program. [employer] Goals: To be met in 10 weeks [...] sign below. Date: documented in this encounter [facility] 03-15-2024 History of Present illness Narrative Physical Therapy Treatment Visit Patient Name: Frankie MARTINEZ Today's Date: 03/15/2024 No diagnosis found. Visit number: 5 Timed Code Treatment Minutes: 45 minutes Total Treatment Time: 60 minutes Time In: 1430 Time Out: 1530 History: Pt. Presents to PT with c/c of central low back and right hip pain. Pain on/off for several years. Had PT at [facility] which helped. Had increased pain while [...] noticed a regression in his progress. Pain: 2 Objective: PT Evaluation (02/16/24) Lumbar ROM: flexion [...] exercises today and pt. Tolerated well. Pt. [place] new exercises really helped. Outcome Measure: Rehab Diagnosis: lumbar DDD, right hip OA Short Term Goal: To be met in 2 weeks Goal 1: Pt to be instructed in home exercise program. Prison Goals: To be met in 10 weeks [...] sign below. Date: documented in this encounter [facility] 03-14-2024 History of Present illness Narrative Images [...] follow-ups on file. documented in this encounter [facility] 03-07-2024 History of Present illness Narrative Pt dropped off urine to be checked d/t he feel he may have a UTI. documented in this encounter [facility] 12-26-2022 Hospital Discharge instructions Follow Up Care 12/26/2022 14:17:19 With:Dakota AHN MD, SUR Address: [address] [place] [phone] When: only if needed With:Dakota AHN MD, SUR Address: [address] [place] [phone]- When: only if needed With:Dakota AHN MD, SUR Address: [address] [place] [phone]- When: only if needed [facility] 10-01-2022 Note Chief Complaint consultation for left [...] tab(s), Oral, BID, PRN Flonase 0.05 mg/inh [place], 2 spray(s), Nasal, Daily hydrochlorothiazide-losartan 12.5 mg-50 mg Tab, 1 tab(s), Oral, Daily metformin 500 mg Tab, 500 mg= 1 tab(s), Oral, BID Allergies penicillins (Weakness - general) Social History Alcohol - Low Risk, 07/11/2019 Substance Abuse - Denies S (more content not included)... [facility] Comment on above: Result Comment: Elec [...] us in the meantime with any issues. [facility] Other Evaluation + Plan note No data available for this section [facility] Evaluation + Plan note Future Appointments Appointment Date:12/26/2022 02:00:00 PM Scheduled Provider:Dakota AHN MD Location:[facility] Appointment Type: Post Op 15 General Surgery [place] evaluation + Plan note Future Appointments Appointment Date:01/13/2023 04:00:00 PM Scheduled Provider:Dakota AHN MD Location:[facility] Appointment Type: Post Op 15 General Surgery [place] evaluation note* Diagnosis Onset Date Resolution Status Carotid stenosis, right acut e [facility] Work Phone: Evaluation note* Diagnosis Degeneration of [...] use of insulin, unspecified laterality ([facility]/HCC) Prostate cancer screening Special screening for malignant neoplasm of prostate Elevated cholesterol ([facility]/HCC) Pure hypercholesterolemia Essential (primary) hypertension (CMS/HCC) Unspecified essential hypertension Stenosis of right carotid artery Occlusion and stenosis of carotid artery without mention of cerebral infarction Coronary artery disease involving [place] coronary artery of [place] heart without angina pectoris ([facility]) documented [facility] encounter [facility] [...] in this encounter [facility]* Diagnosis Essential (primary) hypertension- Primary Unspecified essential hypertension documented in this encounter [facility]* Diagnosis Atopic dermatitis, unspecified type- Primary Folliculitis Other specified disease of hair and hair follicles documented [facility]* Diagnosis 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, without long-term current use of insulin, unspecified laterality (HCC) Essential (primary) hypertension Unspecified essential hypertension Allergic rhinitis, unspecified seasonality, unspecified trigger Chronic dysfunction of right eustachian tube documented in this encounter [facility]* Diagnosis OME (otitis media with effusion), right- Primary Chronic dysfunction of right eustachian tube CSF otorrhea documented in this encounter [facility]* Diagnosis Dysfunction of right eustachian tube documented in this encounter [facility]* Diagnosis Eczema, unspecified type documented in this encounter [facility] Narrative - Reported* Type Description Date Medical History HTN-supposed to take Bystolic, but reports he does not usually take it Medical History Hypercholestermia Medical History Inguinal hernia Medical History DM with some neuropahty Medical History CAD with TX in 2005- did not have significant amount of cardiac injury at that time and has not had any recurrent symptoms of angina. He continues to follow with Dr. Lamb who treats him medically Medical History CVOD Surgical History Circumcision 2012 Surgical History Lt ankle fx 2017 Surgical History carotid endarterectomy right si de 2017 Hospitalization History Heart attack 2005 [facility] Other Hospital Discharge instructions No data available for this section General Surgery [place] note No data available for this section General Surgery [place] Reason for visit Narrative* Rehabilitation - Outpatient (Routine) - Authorized Specialty Diagnoses / Procedures Referred By Layton t Referred To Contact Physical Therapy Diagnoses Degenerative disc disease, lumbar Low back pain, unspecified back pain laterality, unspecified chronicity, unspecified whether sciatica present Procedures [place] OFFICE/OUTPATIENT NEW HIGH MDM 60 MINUTES Weston Borja MD [address] [address] Phone: tel: fax: [facility] 112 [facility] [address] [place] [address] Phone: tel: fax: Referral ID Status Reason Start Date Expiration Date Visits Requested Visits Authorized [id number] Authorized Specialty Services Required 02/16/2024 03/19/2024 9 9 [facility] N[facility]* Rehabilitation - Outpatient (Routine) - Authorized Specialty Diagnoses / Procedures Referred By Contac t Referred To Contact Physical Therapy Diagnoses Degenerative disc disease, lumbar Low back pain, unspecified back pain laterality, unspecified chronicity, unspecified whether sciatica present Procedures [place] THER PX 1/> AREAS EACH 15 MIN NEUROMUSC REEDUCA PHYS/OCC THERAPY SS [place] MANUAL THERAPY TQS 1/> REGIONS EACH 15 MINUTES OH THERAPEUTIC PX 1/> AREAS EACH 15 MIN EXERCISES Weston Borja MD 112 [facility] [address] [place] [address] Phone: tel: fax: [facility] 112 [facility] [address] [place] [address] Phone: tel: fax: Referral ID Status Reason Start Date Expiration Date Visits Requested Visits Authorized [id number] Authorized Specialty Services Required 04/22/2024 8 8 [facility] Narrative* Rehabilitation - Outpatient (Routine) - Closed Specialty Diagnoses / Procedures [facility] To Contact Physical Therapy Diagnoses Degenerative disc disease, lumbar Low back pain, unspecified back pain laterality, unspecified chronicity, unspecified whether sciatica present Procedures [place] THER PX 1/> AREAS EACH 15 MIN NEUROMUSC REEDUCA PHYS/OCC THERAPY SS [place] MANUAL THERAPY TQS 1/> REGIONS EACH 15 MINUTES OH THERAPEUTIC PX 1/> AREAS EACH 15 MIN EXERCISES Weston Borja MD 112 [facility] [address] [place] [address] Phone: tel: fax: [facility] 112 [facility] [address] [place] [address] Phone: tel: fax: Referral ID Status Reason Start Date Expiration Date V isits Requested Visits Authorized [id number] Closed Specialty Services Required 03/22/2024 04/22/2024 8 [...] section and content) DATE CREATED AUTHOR 11/25/2021 [facility] DATE CREATED AUTHOR AUTHOR'S ORGANIZ ATION 09/04/2022 [facility] DATE CREATED AUTHOR AUTHOR'S ORGANIZ ATION 09/04/2022 [employer] DATE CREATED AUTHOR AUTHOR'S ORGANIZ ATION 10/03/2022 [facility] DATE CREATED AUTHOR AUTHOR'S ORGANIZ ATION 01/14/2023 [facility] DATE CREATED AUTHOR AUTHOR'S ORGANIZ ATION 12/04/2024 [facility] DATE CREATED AUTHOR AUTHOR'S ORGANIZ ATION 02/22/2025 [facility] EPIC REASON FOR VISIT (unrecogniz ed section and content) Specialty Diagnoses / Procedures Referred By Contac t Referred To Contact Physical Therapy Diagnoses Degenerative disc disease, lumbar Low back pain, unspecified back pain laterality, unspecified chronicity, unspecified whether sciatica present Procedures [place] OFFICE/OUTPATIENT NEW HIGH MDM 60 MINUTES Weston Borja MD 112 [facility] [address] [place] [address] [facility] 112 [facility] [address] [place] [address] Referral ID Status Reason Start Date Expiration Date Visits Requested Visits Authorized [id number] Authorized Specialty Services Required 02/16/2024 03/19/2024 9 9 Reason Comments UTI Referral ID Status Reason Start Date Expiration Date Visits Requested Visits Authorized [id number] Authorized Specialty Services Required 02/18/2024 03/19/2024 8 8 Reason Comments Medicare Annual Wellness Visit [place] Reason Comments TERA Admits about a week ago he started having some nasal congestion and when he blows his nose he is getting greyish/bloody mucous. Would like for you to look at his nasal passages. Symptoms were a little worse yesterday. Reason Comments Hypertension neuropathy Sinusitis Reason Onset Date Comments Med Refill 12/26/2024 Reason Comments Diabetes Hypertension Reason Comments Allergic Rhinitis Ear Problem Rhinitis/chronic RT ET dysfunction Specialty Diagnoses / Procedures Referred By Contac t Referred To Contact Otolaryngology Diagnoses Allergic rhinitis, unspecified seasonality, unspecified trigger Chronic dysfunction of right eustachian tube Procedures [place] OFFICE/OUTPATIENT NEW HIGH MDM 60 MINUTES Weston Borja MD [address] [facility] [address] [place] [address] Phone: tel: fax: Antwon Estrada MD [address] [facility] [address] [place] [address] Phone: tel: fax: Referral ID Status Reason Start Date Expiration Date V isits Requested Visits Authorized [id number] Closed Specialty Services Required 02/13/2025 08/12/2025 1 1 Reason Comments Med Change Request Patient Care team informatio n (unrecognized section and content) Reservation Clerk Relationship Specialty Start Date End Date Weston Borja MD [address] [facility] [address] [place] [address] PCP - [employer] 06/01/20 Weston Borja MD [address] [facility] [address] [place] [address] PCP - General Internal Medicine 10/07/22Thursday, [employer] [address] [place] [address] Licensed Practical Nurse Family Medicine 07/02/23 Team Status: Active Member Role Status Dates Weston Borja II MD Primary Care Provider Active Team Status: Inactive Member Role Status Dates Melchor Mondragon MD Attending Provider Active S tart: December 08, 2023 End: December 08, 2023 Weston Borja II MD Primary Care Provider Active Start: December 08, 2023 End: December 08, 2023 Reservation Clerk Relationship Specialty Start Date End Date Weston Borja MD [address] [place] [address] PCP - General Internal Medicine 10/07/22 Reservation Clerk Relationship Specialty Start Date End Date Weston Borja MD [address] [place] [address] PCP - General Internal Medicine 10/07/22 Reservation Clerk Relationship Specialty Start Date End Date Weston Borja MD [address] [place] [address] PCP - General Internal Medicine 10/07/22 Reservation Clerk Relationship Specialty Start Date End Date Weston Borja MD [address] [place] [address] PCP - General Internal Medicine 10/07/22 Reservation Clerk Relationship Specialty Start Date End Date Weston Borja MD [address] [place] [address] PCP - General Internal Medicine 10/07/22 Reservation Clerk Relationship Specialty Start Date End Date Weston Borja MD [address] [place] [address] PCP - General Internal Medicine 10/07/22 Reservation Clerk Relationship Specialty Start Date End Date Weston Borja MD [address] [place] [address] PCP - General Internal Medicine 10/07/22 Reservation Clerk Relationship Specialty Start Date End Date Weston Borja MD [address] [place] [address] PCP - General Internal Medicine 10/07/22 Reservation Clerk Relationship Specialty Start Date End Date Weston Borja MD [address] [place] [address] PCP - General Internal Medicine 10/07/22 Reservation Clerk Relationship Specialty Start Date End Date Weston Borja MD [address] [place] [address] PCP - General Internal Medicine 10/07/22 Reservation Clerk Relationship Specialty Start Date End Date Weston Borja MD [address] [place] [address] PCP - General Internal Medicine 10/07/22 Reservation Clerk Relationship Specialty Start Date End Date Weston Borja MD [address] [place] [address] PCP - General Internal Medicine 10/07/22 Reservation Clerk Relationship Specialty Start Date End Date Weston Borja MD [address] [place] [address] PCP - General Internal Medicine 10/07/22 Reservation Clerk Relationship Specialty Start Date End Date Weston Borja MD [address] [place] [address] PCP - General Internal Medicine 10/07/22 Reservation Clerk Relationship Specialty Start Date End Date Weston Borja MD [address] [place] [address] PCP - General Internal Medicine 10/07/22 Reservation Clerk Relationship Specialty Start Date End Date Weston Borja MD [address] [place] [address] PCP - General Internal Medicine 10/07/22 Reservation Clerk Relationship Specialty Start Date End Date Weston Borja MD [address] [place] [address] PCP - General Internal Medicine 10/07/22 Reservation Clerk Relationship Specialty Start Date End Date Weston Borja MD [address] [place] [address] PCP - General Internal Medicine 10/07/22 Reservation Clerk Relationship Specialty Start Date End Date Weston Borja MD [address] [place] [address] PCP - General Internal Medicine 10/07/22 Reservation Clerk Relationship Specialty Start Date End Date Weston Borja MD [address] [place] [address] PCP - General Internal Medicine 10/07/22 Reservation Clerk Relationship Specialty Start Date End Date Weston Borja MD [address] [place] [address] PCP - General Internal Medicine 10/07/22 Frankie Irby DO [address] [place] [address] PCP - [employer] 06/01/20 Reservation Clerk Relationship Specialty Start Date End Date Weston Borja MD [address] [place] [address] PCP - General Internal Medicine 10/07/22 Frankie Irby DO [address] [facility] [place] [address] PCP - [employer] 06/01/20 Reservation Clerk Relationship Specialty Start Date End Date Weston Borja MD [address] [facility] [address] [place] [address] PCP - General Internal Medicine 10/07/22 Frankie Irby DO [address] [facility] [place] [address] PCP - [employer] 06/01/20 Reservation Clerk Relationship Specialty Start Date End Date Weston Borja MD [address] [facility] [address] [place] [address] PCP - General Internal Medicine 10/07/22 Frankie Irby DO [address] [facility] [place] [address] PCP - [employer] 06/01/20 Reservation Clerk Relationship Specialty Start Date End Date Weston Borja MD [address] [facility] [address] [place] [address] PCP - General Internal Medicine 10/07/22 Frankie Irby DO [address] [facility] [place] [address] PCP - [employer] 06/01/20 Reservation Clerk Relationship Specialty Start Date End Date Weston Borja MD [address] [place] [address] PCP - General Internal Medicine 10/07/22 Frankie Irby DO [address] [place] [address] PCP - [employer] 06/01/20 Reservation Clerk Relationship Specialty Start Date End Date Weston Borja MD [address] [place] [address] PCP - General Internal Medicine 10/07/22 Frankie Irby DO [address] [facility] [place] [address] PCP - [employer] 06/01/20 Reservation Clerk Relationship Specialty Start Date End Date Weston Borja MD [address] [place] [address] PCP - General Internal Medicine 10/07/22 Frankie Irby DO [address] [facility] [address] [address] PCP - [employer] 06/01/20 Reservation Clerk Relationship Specialty Start Date End Date Weston Borja MD [address] [place] [address] PCP - General Internal Medicine 10/07/22 Frankie Irby DO [address] [facility] [place] [address] PCP - [employer] 06/01/20 Reservation Clerk Relationship Specialty Start Date End Date Weston Borja MD [address] [place] [address] PCP - General Internal Medicine 10/07/22 Weston Borja MD [address] [place] [address] PCP - [employer] 06/01/20 Reservation Clerk Relationship Specialty Start Date End Date Weston Borja MD [address] [place] [address] PCP - General Internal Medicine 10/07/22 Weston Borja MD [address] [place] [address] PCP - [employer] 06/01/20 Reservation Clerk Relationship Specialty Start Date End Date Weston Borja MD [address] [place] [address] PCP - General Internal Medicine 10/07/22 Weston Borja MD [address] [place] [address] PCP - [employer] 06/01/20 Reservation Clerk Relationship Specialty Start Date End Date Weston Borja MD [address] [place] [address] PCP - General Internal Medicine 10/07/22 Weston Borja MD [address] [place] [address] PCP - [employer] 06/01/20 Reservation Clerk Relationship Specialty Start Date End Date Weston Borja MD [address] [facility] [address] [place] [address] PCP - General Internal Medicine 10/07/22 Weston Borja MD [address] [facility] [address] [place] [address] PCP - [employer] 06/01/20 Goals (unrecognized section [...] BE BASED ON THE PRIMARY CLINICAL RECORDS. [employer] [facility]. provides no warranty or guarantee of the accuracy or completeness of information in this document.
== END 2025-03-10 14:24 | disposition home or self-care (01) ==
LOC: CT 14:23
PROVIDERS: PCP Internal Medicine; Visit Provider Otolaryngology
DX: H69.91 Unspecified Eustachian tube disorder, right ear (principal); G96.01 Cranial cerebrospinal fluid leak, spontaneous; H60.41 Cholesteatoma of right external ear
CPT/HCPCS: 70480; 70482

== ENCOUNTER 2025-03-29 14:13 | Emergency (ER) | payer MEDICARE, SELFPAY ==
[2025-03-29] VITALS (20 sets, daily range): BP systolic 150–201; BP diastolic 63–101; PULSE 56–65; TEMP 37; O2SAT 95–100; BMI 30.7
--- OUTSIDE RECORDS SUMMARY | 2025-03-29 13:30 | XMS_ITS | Encounter Summary ---
Author Organization [facility] Address [address] [facility] [place] [address] Care Team Providers Care Pay Station Collector Name Role Phone Weston Borja MD Primary Care Provider [phone] Weston Borja MD Unavailable [phone] Reason for Visit * ReasonCommentsEar ProblemFollow up CT [facility] 03/23/25 Encounter Details DateTypeDepartmentCare Team (Latest Contact Info)Wgjjjrdcyia63/29/2025 1:30 PM EDTOffice Visit [facility] [address] [facility] [address] [place] [id number] Lindsay Robledo MD [address] [facility] [address] [place], [place] [id number] OME (otitis media with effusion), right (Primary Dx); Chronic dysfunction of right eustachian tube; CSF otorrhea; Hypertension, unspecified type; Nasal polyp Social History Tobacco UseTypesPacks/DayYears UsedDateSmoking Tobacco: NeverSmokeless Tobacco: NeverAlcohol UseStandard Drinks/WeekCommentsNot Currently0 (1 standard drink = 0.6 oz pure alcohol)caffeine: yesPHQ-2AnswerDate RecordedPatient Health Questionnaire-2 [id number] and Gender InformationValueDate RecordedSex Assigned at NhfvhXjus09/11/2023 10:51 AM EDTLegal ZyzAvfb1308/13/2022 7:11 PM EDT Gender EnfshapyKifb40/11/2023 10:51 AM EDTSexual OrientationNot on file documented as of this encounter Last Filed Vital Signs Vital SignReadingTime TakenCommentsBlood Qidtxfqu432/9710 1:36 PM EDT Kuyks843303/29/2025 1:36 PM EDTTemperature--Respiratory Rate--Oxygen Saturation-- Inhaled Oxygen Concentration--Nehtfn54.8 kg (198 lb)03/29/2025 1:36 PM EDTHeight 165.1 cm (5' 5 )03/29/2025 1:36 PM EDTBody Mass Index32.9503/29/2025 1:36 PM EDT documented in this encounter Progress Notes * Lindsay Robledo MD - 03/29/2025 1:30 PM EDT Subjective Patient ID: Frankie De Anda is a 74 y.o. male who presents for Ear Problem (Follow up [facility] 03/23/25) CT temporal bone reviewed and there is severe thinning a possible tegmen defect in the epitymanum. There is fluid in the ME, but the mastoid is clear. There is also nasal polyposis. Pt was seen in 2020 for polyposis. Tx started and pt cancelled post-tx CT due to resolved sx. Pt notes that last night his ear popped and his sx resolved Family History[1] Active Ambulatory Problems Diagnosis Date Noted Acute [...] reflux disease) 01/17/2023 Elevated cholesterol 01/17/2023 Diabetes ([facility]) 01/17/2023 Age-related nuclear cataract of both eyes 04/06/2023 Degenerative disc disease, lumbar 12/10/2023 Carotid stenosis, right 03/29/2025 Resolved Ambulatory Problems Diagnosis Date Noted Type 2 diabetes mellitus without complications ([facility]) 12/22/2022 Past Medical History: Diagnosis Date Acute recurrent maxillary sinusitis Cataract enlarged prostate prevention Heart attack ([facility]) 2005 High cholesterol Hyperlipidemia Nasal mass Neuropathy of foot, unspecified laterality Surgical History[2] Allergies[3] Medications Ordered Prior to Encounter[4] Objective Last Recorded Vitals Vitals: 03/29/25 1336 BP: (!) 196/97 Pulse: 82 ENT Physical Exam Ear Ear Canals: right ear canal normal; Tympanic Membranes: right tympanic membrane normal; Assessment/Plan Diagnoses and all orders for this visit: OME (otitis media with effusion), right Chronic dysfunction of right eustachian tube - CT internal auditory canals/posterior fossa wo IV contrast CSF otorrhea - CT internal auditory canals/posterior fossa wo IV contrast Hypertension, unspecified type OME has resolved. Continue BID flonase on the right. No need for further CSF otorrhea W/U if does not recur. Cancel audio Dr Borja not available to eval pt. Tita Guzman recommends ED eval. Polyps not causing sig sx. [1] Family History Problem Relation Name Age of Onset Heart disease Mother Hyperlipidemia Mother Hypertension Mother Heart failure Father Heart disease Father Melanoma Sister [2] Past Surgical History: Procedure Laterality Date CIRCUMCISION 2014 HERNIA REPAIR Left 12/10/2022 Inguinal with Mesh OTHER SURGICAL HISTORY 2017 carotid stenosis TONSILLECTOMY [3] Allergies Allergen Reactions Ciprofloxacin Other Increased neuropathy Penicillin V Other Reaction(s): Unknown Penicillins Other Other Reaction(s): Weakness - general [4] Current Outpatient Medications on File Prior to Visit Medication Sig Dispense Refill carvedilol (Coreg) 12.5 MG tablet TAKE 1 TABLET TWICE DAILY 200 tablet 3 cloNIDine (Catapres) 0.1 MG tablet Take 1 tablet (0.1 mg) by mouth every 8 (eight) hours if needed for high blood pressure (Take if SBP is > 175) 60 tablet 5 fluticasone (Flonase) 50 MCG/ACT nasal spray SPRAY 2 SPRAYS INTO EACH NOSTRIL EVERY DAY (Patient taking differently: Administer 2 sprays into each nostril Daily) 16 mL 3 glimepiride (Amaryl) 2 MG tablet TAKE 1 TABLET EVERY DAY (Patient taking differently: Take 2 mg by mouth Daily) 100 tablet 3 hydrocortisone (West-Yaakov) 0.2 % cream APPLY TOPICALLY IN THE MORNING AND BEFORE BEDTIME. loratadine (Claritin) 10 MG tablet TAKE 1 TABLET (10 MG) BY MOUTH DAILY. (Patient taking differently: Take 10 mg by mouth Daily) 90 tablet 3 pregabalin (Lyrica) 100 MG capsule Take 1 capsule (100 mg) by mouth in the morning and 1 capsule (100 mg) before bedtime. 60 capsule 5 rosuvastatin (Crestor) 5 MG tablet TAKE 1 TABLET AT BEDTIME 100 tablet 3 tamsulosin (Flomax) 0.4 MG 24 hr capsule TAKE 1 CAPSULE BY MOUTH EVERY DAY (Patient taking differently: Take 0.4 mg by mouth Daily) 90 capsule 3 triamcinolone (Kenalog) 0.5 % cream Apply topically in the morning and before bedtime. 45 g 1 No current facility-administered medications on file prior to visit. documented in this encounter Plan of Treatment DateTypeDepartmentCare Team (Latest Contact Info)Xfabzsppyet34/02/2025 1:30 PM ESTOffice Visit [facility] [address] [place] [address] Joaquín Ghosh DO [address] [place] [address] documented as of this encounter Visit Diagnoses Diagnosis OME (otitis media with effusion), right- Primary Chronic dysfunction of right eustachian tube CSF otorrhea Hypertension, unspecified type Nasal polyp Unspecified nasal polyp documented in this encounter Care Teams Team MemberRelationshipSpecialtyStart DateEnd Date Weston Borja MD [address] [facility] [address] [place] [address] PCP - GeneralInternal Medicine10/07/22 Weston Borja MD [address] [facility] [address] [place] [address] PCP - [employer]1documented as of this encounter
--- OUTSIDE RECORDS SUMMARY | 2025-03-29 14:18 | XMS_ITS | Clinical Summary ---
Author Organization [facility] Address [address] [place] [address] Care Team Providers Care Cnc Mechanic Name Role Phone Weston Borja MD Primary Care Provider [phone] Weston Borja MD Unavailable [phone] Allergies Active AllergyReactionsCriticalityNoted WtnjMyfwdeohYbiieqtcycidmWsehr67/07/2024 Increased neuropathy Penicillin V012/22/2022 Other Reaction(s): Unknown PfdwwlxlipbJvwgk87/19/2023 Other Reaction(s): Weakness - general Medications MedicationSigDispense QuantityRefillsLast FilledStart DateEnd DateStatus tamsulosin (Flomax) 0.4 MG 24 hr capsule Indications:BPH with urinary obstructionTAKE 1 CAPSULE BY MOUTH EVERY DAY 90 capsule 5Active Additional Information Patient taking differently:0.4 mg Oral Daily,(No times of day reported), Reported on 03/29/2025 pregabalin (Lyrica) 100 MG capsule Indications:Diabetic peripheral neuropathy (HCC)Take 1 capsule (100 mg) by mouth in the morning and 1 capsule (100 mg) before bedtime. 60 capsule [id number]//[id number]/6Active cloNIDine (Catapres) 0.1 MG tablet Indications:Essential (primary) hypertensionTake 1 tablet (0.1 mg) by mouth every 8 (eight) hours if needed for high blood pressure (Take if SBP is > 175) 60 tablet 509/15/209543/6Active fluticasone (Flonase) 50 MCG/ACT nasal spray Indications:Lesion of nasal cavitySPRAY 2 SPRAYS INTO EACH NOSTRIL EVERY DAY 16 mL 3095Active Additional Information Patient taking differently:2 spray Each Nostril Daily,(No times of day reported) , Reported on 03/29/2025 loratadine (Claritin) 10 MG tablet Indications:Dysfunction of right eustachian tubeTAKE 1 TABLET (10 MG) BY MOUTH DAILY. 90 tablet 5Active Additional Information Patient taking differently:10 mg Oral Daily,(No times of day reported), Reported on 03/29/2025 triamcinolone (Kenalog) 0.5 % cream Indications:Eczema, unspecified typeApply topically in the morning and before bedtime. 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, without long-term current use of insulin, unspecified laterality (HCC)TAKE 1 TABLET EVERY DAY 100 tablet 5Active Additional Information Patient taking differently:2 mg Oral Daily,(No times of day reported), Reported on 03/29/2025 rosuvastatin (Crestor) 5 MG tablet Indications:Pure hypercholesterolemia, unspecifiedTAKE 1 TABLET AT BEDTIME 100 tablet 5Active carvedilol (Coreg) 12.5 MG tablet Indications:Essential (primary) hypertensionTAKE 1 TABLET TWICE DAILY 200 tablet 5Active hydrocortisone (West-Yaakov) 0.2 % cream APPLY TOPICALLY IN THE MORNING AND BEFORE BEDTIME.5Active carvedilol (Coreg) 12.5 MG tablet Indications:Essential (primary) hypertensionTAKE 1 TABLET TWICE DAILY 180 tablet /03/2025Discontinued glimepiride (Amaryl) 2 MG tablet Indications: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 45 g Discontinued Active Problems ProblemNoted DateDiagnosed DateCarotid stenosis, right03/29/2025Degenerative disc disease, mbmnak1212/10/2023ge-related nuclear cataract of both eyes 04/06/2023PH with urinary ujumizqxwff53/19/2023ardiac zbkeur6101/17/2023Elevated PSA01/17/2023ross wrohitehj81/19/7836Ferrbfevk85/19/2023Urinary urgency 01/17/2023Incomplete bladder xegfokfg31/19/2023Inferior myocardial infarction 01/17/2023Irreducible left inguinal ncbxse3001/17/2023Idiopathic progressive hcusmlbpxy98/19/0867Wtcvfruc00/19/2023Urethral ywjdwjduh77/19/2023Weak urine seixbn8201/17/2023MI 33.0-33.9,adult01/17/20234563Kwefowv32/19/2023AD (coronary artery disease)01/17/20238454Ofxepnsolslp11/19/2023ERD (gastroesophageal reflux disease)01/17/2023Elevated eughfqygwtf19/19/1903Bsrwvpbw91/19/2023cute maxillary amcuujgdt13/24/2023rthritis of left hip12/22/2022lass 1 obesity 12/22/2022oronary vtqcocezamwjtnw49/24/2023iabetic peripheral neuropathy 12/22/2022Essential (primary) stlnlyntpara49/24/2023astroesophageal reflux ypdewrq9612/22/20225176Gopzetpqffbahgvhqmys47/24/2023Lesion of nasal ozswzr1012/22/2022 OAB (overactive bladder)12/22/2022Osteoarthritis of knee12/22/2022lantar wart of left foot12/22/2022Right sided hopjlbsw23/24/2023Right-sided carotid artery dtpggaz8612/22/2022Type 2 diabetes mellitus with zsnrxmsbyxw99/24/2023 Resolved Problems ProblemNoted DateDiagnosed DateResolved DateType 2 diabetes mellitus without iiedayqjijuyc63 Encounters DateTypeDepartmentCare KzqxAelkzcgtwwi86/29/2025 1:30 PM EDTOffice Visit [facility] [address] [facility] [address] [place] [address] Lindsay Estrada MD OME (otitis media with effusion), right (Primary Dx); Chronic dysfunction of right eustachian tube; CSF otorrhea; Hypertension, unspecified type; Nasal polyp03/29/2025amboo flowsheet [facility] [address] [facility] [address] [place] [address] Lindsay Estrada MD 03/29/20251472Quexmy49/10/2025linisync Result Encounter [facility] Unsolicited Provider, Generic External Data 03/10/2025linisync Result Encounter [facility] External Department Unsolicited Provider, Generic External Data 03/09/2025[facility] [address] [place] [address] Weston Borja MD 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, without long-term current use of insulin, unspecified laterality (HCC); Pure hypercholesterolemia, unspecified; Essential (primary) qlhpdbokqiba53/03/2025Refill [facility] [address] [place] [address] Weston Borja MD Eczema, unspecified type03/03/2025Refill [facility] [address] [place] [address] Tita Guzman PA Dysfunction of right eustachian tube03/02/2025Telephone [facility] [address] [place] [address] Weston Borja MD 02/21/2025 2:00 PM EDTOffice Visit [facility] [address] [facility] [address] [place] [address] Lindsay Estrada MD OME (otitis media with effusion), right (Primary Dx); Chronic dysfunction of right eustachian tube; CSF otorrhea; Cholesteatoma of external ear, right02/21/2025[facility] [address] [facility] [address] [place] [address] Weston Borja MD Lesion of nasal bgkbpk0602/21/2025amboo flowsheet 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, without long-term current use of insulin, unspecified laterality (HCC); Essential (primary) hypertension ; Allergic rhinitis, unspecified seasonality, unspecified trigger; Chronic dysfunction of right eustachian tube02/13/2025amb flowsheet [facility] [address] [facility] [address] [place] [address] Weston Borja MD 02/13/20253178Xwxtxr54/10/2025Telephone [address] [facility] [address] [place] [address] Weston Borja MD 02/01/2025Telephone [facility] [address] [facility] [address] [place] [address] Weston Borja MD 01/12/2025 2:00 PM EDTOffice Visit [facility] [address] [facility] [address] [place] [address] Merry Black, DANICA Atopic dermatitis, unspecified type (Primary Dx); Icrxqyzkairz87/14/2025amboo flowsheet [facility] [address] [place] [address] Merry Black NP 01/12/20259035Vvwibq40/07/2025 3:00 PM EDTOffice Visit [facility] [address] [place] [address] Merry Black NP Essential (primary) hypertension (Primary Dx)01/05/2025[facility] [address] [place] [address] Mariajose Mc [facility] 01/05/2025bstract [facility] [address] [place] [address] McMariajose, HOME INSPECTOR 01/05/20258133Vavrhr51/06/2025Telephone [address] [facility] [address] [place] [address] Weston Borja MD 12/29/2024bstract [facility] [address] [facility] [address] [place] [address] Weston Borja MD from Last 3 Months Family History Medical HistoryRelationNameCommentsHeart diseaseFatherHeart failureFatherHeart diseaseMotherHyperlipidemiaMotherHypertensionMotherMelanomaSisterRelationName StatusCommentsFatherDeceasedMotherAliveOtherSpouseAliveSisterDeceased Social History Tobacco UseTypesPacks/DayYears UsedDateSmoking Tobacco: NeverSmokeless Tobacco: Never Tobacco Cessation:Counseling Given: Yes Alcohol UseStandard Drinks/WeekCommentsNot Currently0 (1 standard drink = 0.6 oz pure alcohol)caffeine: yesPHQ-2AnswerDate RecordedPatient Health Questionnaire-2 Lsxyg236Sex and Gender InformationValueDate RecordedSex Assigned at ByqmcBukx29/11/2023 10:51 AM EDTLegal SrpFtbj5208/13/2022 7:11 PM EDTGender PsbzavmbOwgc82/11/2023 10:51 AM EDTSexual OrientationNot on file Last Filed Vital Signs Vital SignReadingTime TakenCommentsBlood Vlzabasm895/9703/29/2025 1:36 PM EDT Oitjl673803/29/2025 1:36 PM MLSRcebbymtqlf54.8 ??C (98.2 ??F)06/29/2024 3:01 PM ESTRespiratory Itcd134901/12/2025 2:02 PM EDTOxygen Jumjnmkxhy54%02/13/2025 3:23 PM EDTInhaled Oxygen Concentration--Gcrgiq49.8 kg (198 lb)03/29/2025 1:36 PM EDT Xwfelu792.1 cm (5' 5 )03/29/2025 1:36 PM EDTBody Mass Index32.9503/29/2025 1:36 PM EDT Plan of Treatment DateTypeDepartmentCare Team (Latest Contact Info)Znomdarukrs87/02/2025 1:30 PM ESTOffice Visit [facility] [address] [place] [address] Joaquín Ghosh DO [address] [place] [address] Health MaintenanceDue DateLast DoneCommentsDTaP/Tdap/Td Vaccines (1 - Tdap) 1955Diabetes: Retinopathy Pjaesthzl86, 04/06/2023, 04/06/2023, Additional history existsDiabetes: Urine Protein Tnhjusnec68/16/2025 07/17/2023OVID-19 Vaccine ( season)/05/2021, 08/21/2020, 07/30/2020Influenza Vaccine (#1)2025Diabetes: Hemoglobin A1C05/15/2025 02/13/2025, 10/17/2024, 05/16/2024, Additional history existsPneumococcal Vaccine: 65+ Years (1 of 2 - PCV)05/16/2025Postponed from 1967 (Patient Refused)Medicare Annual Wellness (AWV)6010/17/2024, 05/16/2024, 3Colorectal Cancer ScreeningDiscontinuedFIT-UWOIyoyvzhltvcn01/26/2023CT ColonographyDiscontinuedColonoscopyDiscontinuedFITDiscontinuedFOBTDiscontinued HIB VaccinesAged OutNo longer eligible based on patient's age to complete this topicHPV VaccinesAged OutNo longer eligible based on patient's age to complete this topicHepatitis A VaccinesAged OutNo longer eligible based on patient's age to complete this topicHepatitis B VaccinesAged OutNo longer eligible based on patient's age to complete this topicIPV VaccinesAged OutNo longer eligible based on patient's age to complete this topicMeningococcal B VaccineAged OutNo longer eligible based on patient's age to complete this topicMeningococcal VaccineAged OutNo longer eligible based on patient's age to complete this topicRotavirus VaccinesAged OutNo longer eligible based on patient's age to complete this topic SigmoidoscopyDiscontinued Procedures Procedure NamePriorityDate/TimeAssociated DiagnosisCommentsCT INTERNAL AUDITORY CANALS/POSTERIOR FOSSA WO IV TCRBXBXV64/10/2025 5:[address] INTERNAL AUDITORY CANALS/POSTERIOR FOSSA W AND WO IV KYUFKOSS93/10/2025 5:08 PM EDT POCT GLYCATED HEMOGLOBIN, JFXRKKzppggh48/15/2025 4:29 PM EDT 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 COLON CANCER HKTUAXQvwpngv73/26/2023 8:50 PM EST Screening for colorectal cancer from Last 3 Months or Most Recently Relevant to Health Maintenance Results * CT internal auditory canals/posterior fossa w and wo IV contrast (03/10/2025 5:08 PM EDT)Anatomical RegionLateralityModalityHead, NeckComputed Tomography Specimen (Source)Anatomical Location / LateralityCollection Method / Volume Collection TimeReceived Time03/10/2025 5:08 PM EDT Addenda Addendum by Radiology, Radiologist, MD on 03/23/2025 2:02 PM EDT ?[facility] ?[address] ? [place] [address] ? CT Scan Report ?Cancelled ? Patient: REINALDOJayeshLUCIE G ? MR#: [id number] ?? : 1950 ? Acct:[id number] ?? Age/Sex: 74 / M ? ADM Date: 03/10/25 ?? Loc: CT ? Attending Dr: Lindsay Estrada M.D. ? Ordering Physician: ?? Date of Service: ?? Procedure(s): ?? Accession Number(s): ? cc: ? [facility] ? [address] ? [place] [address] ? Patient Name: ?? LUCIE DE ANDA ? MRN: [facility]:[id number] ? date: 1950 ?Sex: M ?? Assigned Patient Location: CT ?? Current Patient Location: CT ?? Accession/Order Number: [id number] ?? Exam Date: 03/10/2025 ??14:46 ?Report Date: 03/10/2025 ??17:08 ? At the request of: ?? LINDSAY ??NATALIE ? Procedure: ??CT int auditory canals wo/w ? CT int auditory canals wo/w ??03/10/2025 2:49 PM ? SIGNS AND SYMPTOMS: ?? Chronic Dysfunction Of Right Eustachian Tube, hearing loss, tinnitus ? COMPARISON: None. ? TECHNIQUE: Using a multi-detector scanner, 0.5 x 0.3 mm axial scans of the ?? temporal bone were acquired using a high-resolution bone technique. The scans ?? were retrospectively targeted for right and left side, and subsequently ?? reconstructed in the coronal and Sagittal plane, again targeting the right and ?? left sides individually, as well as the entire skull base. CT was performed ?? with one or more of the following dose reduction techniques: Automated ?? exposure control, adjustment of the mA and/or kV according to patient size, or ?? use of iterative reconstruction technique. ? FINDINGS: ? Right: ? There is soft tissue/fluid attenuation occupying the mesotympanum and ?? hypotympanum including Prussak's space. ??There is slight blunting of the ?? scutum presumed secondary to demineralization. ??There is also subtle ?? demineralization of the incus and stapes. ??This may represent a cholesteatoma. ?? The cochlea, vestibule, vestibular and cochlear aqueduct are within normal ?? limits. The facial nerve canal is within normal limits. The semicircular ?? canals are within normal limits. ??The internal auditory canal is within normal ?? limits. ? The external auditory canal is within normal limits. ??There is a right mastoid ?? effusion. ??The carotid canal and jugular foramen are within normal limits. The ?? temporomandibular joint is within normal limits. ? Left: ? The middle ear cleft is within normal limits and the ossicles are within ?? normal limits. ??The cochlea, vestibule, vestibular and cochlear aqueduct are ?? within normal limits. The facial nerve canal is within normal limits. The ?? semicircular canals are within normal limits.. The internal auditory canal is ?? within normal limits.. ? The external auditory canal and mastoid air cells are within normal limits. ?? The carotid canal and jugular foramen are within normal limits. The ?? temporomandibular joint is intact. ? Paranasal sinuses: There is mucosal thickening partially opacifying the ?? ethmoid air cells and mucosal thickening is also noted in the maxillary ?? sinuses. ? Dictated By: ?Devan,Todd M.D. ? Signed By: ? DD/ 1708 ? TD/TT: ? Assistant Chief Train Dispatcher: Narrative 03/10/2025 5:11 PM EDT [facility] ?[address] ? [place] [address] ? CT Scan Report ? Signed ? Patient: LUCIE DE ANDA ?MR#: [id number] ?? : 1950 ?Acct:[id number] ?? Age/Sex: 74 / M ?ADM Date: 03/10/25 ?? Loc: CT ? Attending Dr: Lindsay Estrada M.D. ? Ordering Physician: Lindsay Estrada M.D. ?? Date of Service: 03/10/25 ?? Procedure(s): CT int auditory canals wo/w ?? Accession Number(s): [id number] ? cc: WESTON BORJA ? [facility] ? [address] ? [place] [address] ? Patient Name: ?? LUCIE DE ANDA ? MRN: [facility]:[id number] ? date: 1950 ?Sex: M ?? Assigned Patient Location: CT ?? Current Patient Location: CT ?? Accession/Order Number: [id number] ?? Exam Date: 03/10/2025 ??14:46 ?Report Date: 03/10/2025 ??17:08 ? At the request of: ?? LINDSAY ??NATALIE ? Procedure: ??CT int auditory canals wo/w ? CT int auditory canals wo/w ??03/10/2025 2:49 PM ? SIGNS AND SYMPTOMS: ?? Chronic Dysfunction Of Right Eustachian Tube, hearing loss, tinnitus ? COMPARISON: None. ? TECHNIQUE: Using a multi-detector scanner, 0.5 x 0.3 mm axial scans of the ?? temporal bone were acquired using a high-resolution bone technique. The scans ?? were retrospectively targeted for right and left side, and subsequently ?? reconstructed in the coronal and Sagittal plane, again targeting the right and ?? left sides individually, as well as the entire skull base. CT was performed ?? with one or more of the following dose reduction techniques: Automated ?? exposure control, adjustment of the mA and/or kV according to patient size, or ?? use of iterative reconstruction technique. ? FINDINGS: ? Right: ? There is soft tissue/fluid attenuation occupying the mesotympanum and ?? hypotympanum including Prussak's space. ??There is slight blunting of the ?? scutum presumed secondary to demineralization. ??There is also subtle ?? demineralization of the incus and stapes. ??This may represent a cholesteatoma. ?? The cochlea, vestibule, vestibular and cochlear aqueduct are within normal ?? limits. The facial nerve canal is within normal limits. The semicircular ?? canals are within normal limits. ??The internal auditory canal is within normal ?? limits. ? The external auditory canal is within normal limits. ??There is a right mastoid ?? effusion. ??The carotid canal and jugular foramen are within normal limits. The ?? temporomandibular joint is within normal limits. ? Left: ? The middle ear cleft is within normal limits and the ossicles are within ?? normal limits. ??The cochlea, vestibule, vestibular and cochlear aqueduct are ?? within normal limits. The facial nerve canal is within normal limits. The ?? semicircular canals are within normal limits.. The internal auditory canal is ?? within normal limits.. ? The external auditory canal and mastoid air cells are within normal limits. ?? The carotid canal and jugular foramen are within normal limits. The ?? temporomandibular joint is intact. ? Paranasal sinuses: There is mucosal thickening partially opacifying the ?? ethmoid air cells and mucosal thickening is also noted in the maxillary ?? sinuses. ? CT/CT int auditory canals wo/w ?? IMPRESSION: ? There is soft tissue/fluid attenuation occupying the mesotympanum and ?? hypotympanum on the right including Prussak's space. ??There is slight blunting ?? of the scutum presumed secondary to demineralization. ??There is also subtle ?? demineralization of the incus and stapes. ??This may represent a cholesteatoma. ? The temporal bone structures are within normal limits. ? Impression dictated by: Todd Hartman M.D. ??03/10/2025 5:08 PM ? Dictation Location: [place] [address] ? Electronically authenticated by: [id number] ??Y ?? Date: 03/10/2025 ??17:08 ? Dictated By: ?Todd Hartman M.D. ? Signed By: ?10 1711 ? DD/ 1708 ? TD/TT: ? Assistant Chief Train Dispatcher: Procedure Note Radiology, Radiologist, MD - 03/23/[address] [address] [address] Scan Report Signed Patient: LUCIE DE ANDA R#: [id number] : 9Acct:[id number] Age/Sex: 74 / MADM Date: 03/10/25 Loc: CT Attending Dr: Lindsay Estrada M.D. Ordering Physician: Lindsay Estrada M.D. Date of Service: 03/10/25 Procedure(s): CT int auditory canals wo/w Accession Number(s): [id number] cc: WESTON BORJA [address] [address] Patient Name: LUCIE DE ANDA MRN: [id number] date: 1950 Sex: M Assigned Patient Location: CT Current Patient Location: CT Accession/Order Number: [id number] Exam Date: 03/10/2025 14:46 Report Date: 03/10/2025 17:08 At the request of: LINDSAY ESTRADA MD Procedure: CT int auditory canals wo/w CT int auditory canals wo/w 03/10/2025 2:49 PM SIGNS AND SYMPTOMS: Chronic Dysfunction Of Right Eustachian Tube, hearing loss, tinnitus COMPARISON: None. TECHNIQUE: Using a multi-detector scanner, 0.5 x 0.3 mm axial scans of the temporal bone were acquired using a high-resolution bone technique. Thescans were retrospectively targeted for right and left side, and subsequently reconstructed in the coronal and Sagittal plane, again targeting the rightand left sides individually, as well as the entire skull base. CT wasperformed with one or more of the following dose reduction techniques: Automated exposure control, adjustment of the mA and/or kV according to patientsize, or use of iterative reconstruction technique. FINDINGS: Right: There is soft tissue/fluid attenuation occupying the mesotympanum and hypotympanum including Prussak's space. There is slight blunting of the scutum presumed secondary to demineralization. There is also subtle demineralization of the incus and stapes. This may represent acholesteatoma. The cochlea, vestibule, vestibular and cochlear aqueduct are withinnormal limits. The facial nerve canal is within normal limits. The semicircular canals are within normal limits. The internal auditory canal is withinnormal limits. The external auditory canal is within normal limits. There is a rightmastoid effusion. The carotid canal and jugular foramen are within normal limits.The temporomandibular joint is within normal limits. Left: The middle ear cleft is within normal limits and the ossicles are within normal limits. The cochlea, vestibule, vestibular and cochlear aqueductare within normal limits. The facial nerve canal is within normal limits. The semicircular canals are within normal limits.. The internal auditory canalis within normal limits.. The external auditory canal and mastoid air cells are within normallimits. The carotid canal and jugular foramen are within normal limits. The temporomandibular joint is intact. Paranasal sinuses: There is mucosal thickening partially opacifying the ethmoid air cells and mucosal thickening is also noted in the maxillary sinuses. CT/CT int auditory canals wo/w IMPRESSION: There is soft tissue/fluid attenuation occupying the mesotympanum and hypotympanum on the right including Prussak's space. There is slightblunting of the scutum presumed secondary to demineralization. There is alsosubtle demineralization of the incus and stapes. This may represent acholesteatoma. The temporal bone structures are within normal limits. Impression dictated by: Todd Hartman M.D. 03/10/2025 5:08 PM Dictation Location: [place] [address] Electronically authenticated by: [id number] Y Date: :08 Dictated By: Todd Hartman M.D. Signed By:03/10/251710 DD/ 07 TD/TT: Assistant Chief Train Dispatcher: Authorizing ProviderResult TypeResult StatusGeneric External Data ProviderIMG CT PROCEDURESEdited Result - Final * CT internal auditory canals/posterior fossa wo IV contrast (03/10/2025 5:08 PM EDT)Anatomical RegionLateralityModalityHead, NeckComputed TomographySpecimen (Source)Anatomical Location / LateralityCollection Method / VolumeCollection TimeReceived Time03/10/2025 5:08 PM EDT Narrative 03/23/2025 1:51 PM EDT [facility] ?[address] ? [place] [address] ? CT Scan Report ? Signed ? Patient: LENNOXLUCIE Son ?MR#: [id number] ?? : 1950 ?Acct:[id number] ?? Age/Sex: 74 / M ?ADM Date: //25 ?? Loc: CT ? Attending Dr: Lindsay Estrada M.D. ? Ordering Physician: Lindsay Estrada M.D. ?? Date of Service: 03/10/25 ?? Procedure(s): CT int auditory canals w/o con ?? Accession Number(s): [id number] ? cc: WESTON BORJA ? [facility] ? [address] ? [place] [address] ? Patient Name: ?? LUCIE DE ANDA ? MRN: [facility]:[id number] ? date: 1950 ?Sex: M ?? Assigned Patient Location: CT ?? Current Patient Location: CT ?? Accession/Order Number: [id number] ?? Exam Date: 03/10/2025 ??14:30 ?Report Date: 03/10/2025 ??17:08 ? At the request of: ?? LINDSAY ??NATALIE ? Procedure: ??CT int auditory canals w/o con ? CT int auditory canals wo/w ??03/10/2025 2:49 PM ? SIGNS AND SYMPTOMS: ?? Chronic Dysfunction Of Right Eustachian Tube, hearing loss, tinnitus ? COMPARISON: None. ? TECHNIQUE: Using a multi-detector scanner, 0.5 x 0.3 mm axial scans of the ?? temporal bone were acquired using a high-resolution bone technique. The scans ?? were retrospectively targeted for right and left side, and subsequently ?? reconstructed in the coronal and Sagittal plane, again targeting the right and ?? left sides individually, as well as the entire skull base. CT was performed ?? with one or more of the following dose reduction techniques: Automated ?? exposure control, adjustment of the mA and/or kV according to patient size, or ?? use of iterative reconstruction technique. ? FINDINGS: ? Right: ? There is soft tissue/fluid attenuation occupying the mesotympanum and ?? hypotympanum including Prussak's space. ??There is slight blunting of the ?? scutum presumed secondary to demineralization. ??There is also subtle ?? demineralization of the incus and stapes. ??This may represent a cholesteatoma. ?? The cochlea, vestibule, vestibular and cochlear aqueduct are within normal ?? limits. The facial nerve canal is within normal limits. The semicircular ?? canals are within normal limits. ??The internal auditory canal is within normal ?? limits. ? The external auditory canal is within normal limits. ??There is a right mastoid ?? effusion. ??The carotid canal and jugular foramen are within normal limits. The ?? temporomandibular joint is within normal limits. ? Left: ? The middle ear cleft is within normal limits and the ossicles are within ?? normal limits. ??The cochlea, vestibule, vestibular and cochlear aqueduct are ?? within normal limits. The facial nerve canal is within normal limits. The ?? semicircular canals are within normal limits.. The internal auditory canal is ?? within normal limits.. ? The external auditory canal and mastoid air cells are within normal limits. ?? The carotid canal and jugular foramen are within normal limits. The ?? temporomandibular joint is intact. ? Paranasal sinuses: There is mucosal thickening partially opacifying the ?? ethmoid air cells and mucosal thickening is also noted in the maxillary ?? sinuses. ? CT/CT int auditory canals w/o con ?? IMPRESSION: ? There is soft tissue/fluid attenuation occupying the mesotympanum and ?? hypotympanum on the right including Prussak's space. ??There is slight blunting ?? of the scutum presumed secondary to demineralization. ??There is also subtle ?? demineralization of the incus and stapes. ??This may represent a cholesteatoma. ? The temporal bone structures are within normal limits. ? Impression dictated by: Todd Hartman M.D. ??03/10/2025 5:08 PM ? Dictation Location: [place] [address] ? Electronically authenticated by: [id number] ??Y ?? Date: 03/10/2025 ??17:08 ? Dictated By: ?Todd Hartman M.D. ? Signed By: ?03/23/25 1351 ? DD/ 1708 ? TD/TT: ? Assistant Chief Train Dispatcher: Procedure Note Radiology, Radiologist, MD - 03/23/2025 [place] [address] CT Scan Report Signed Patient: LUCIE DE ANDA R#: [id number] : 9Acct:[id number] Age/Sex: 74 / MADM Date: 03/10/25 Loc: CT Attending Dr: Lindsay Estrada M.D. Ordering Physician: Lindsay Estrada M.D. Date of Service: 03/10/25 Procedure(s): CT int auditory canals w/o con Accession Number(s): [id number] cc: JENNIFERWESTON [place] [address] Patient Name: LUCIE DE ANDA MRN: [facility]:[id number] date: 1950 Sex: M Assigned Patient Location: CT Current Patient Location: CT Accession/Order Number: [id number] Exam Date: 03/10/2025 14:30 Report Date: 03/10/2025 17:08 At the request of: LINDSAY ESTRADA MD Procedure: CT int auditory canals w/o con CT int auditory canals wo/w 03/10/2025 2:49 PM SIGNS AND SYMPTOMS: Chronic Dysfunction Of Right Eustachian Tube, hearing loss, tinnitus COMPARISON: None. TECHNIQUE: Using a multi-detector scanner, 0.5 x 0.3 mm axial scans of the temporal bone were acquired using a high-resolution bone technique. Thescans were retrospectively targeted for right and left side, and subsequently reconstructed in the coronal and Sagittal plane, again targeting the rightand left sides individually, as well as the entire skull base. CT wasperformed with one or more of the following dose reduction techniques: Automated exposure control, adjustment of the mA and/or kV according to patientsize, or use of iterative reconstruction technique. FINDINGS: Right: There is soft tissue/fluid attenuation occupying the mesotympanum and hypotympanum including Prussak's space. There is slight blunting of the scutum presumed secondary to demineralization. There is also subtle demineralization of the incus and stapes. This may represent acholesteatoma. The cochlea, vestibule, vestibular and cochlear aqueduct are withinnormal limits. The facial nerve canal is within normal limits. The semicircular canals are within normal limits. The internal auditory canal is withinnormal limits. The external auditory canal is within normal limits. There is a rightmastoid effusion. The carotid canal and jugular foramen are within normal limits.The temporomandibular joint is within normal limits. Left: The middle ear cleft is within normal limits and the ossicles are within normal limits. The cochlea, vestibule, vestibular and cochlear aqueductare within normal limits. The facial nerve canal is within normal limits. The semicircular canals are within normal limits.. The internal auditory canalis within normal limits.. The external auditory canal and mastoid air cells are within normallimits. The carotid canal and jugular foramen are within normal limits. The temporomandibular joint is intact. Paranasal sinuses: There is mucosal thickening partially opacifying the ethmoid air cells and mucosal thickening is also noted in the maxillary sinuses. CT/CT int auditory canals w/o con IMPRESSION: There is soft tissue/fluid attenuation occupying the mesotympanum and hypotympanum on the right including Prussak's space. There is slightblunting of the scutum presumed secondary to demineralization. There is alsosubtle demineralization of the incus and stapes. This may represent acholesteatoma. The temporal bone structures are within normal limits. Impression dictated by: Todd Hartman M.D. 03/10/2025 5:08 PM Dictation Location: [place] [address] Electronically authenticated by: [id number] Y Date: :08 Dictated By: Todd Hartman M.D. Signed By:03/23/25 1354 DD/ 1708 TD/TT: Assistant Chief Train Dispatcher: Authorizing ProviderResult TypeResult StatusGeneric External Data ProviderIMG CT PROCEDURESFinal Result * POCT Glycated hemoglobin, total (02/13/2025 4:29 PM EDT)ComponentValueRef RangeTest MethodAnalysis TimePerformed AtPathologist SignatureHemoglobin A1C 6.6Specimen (Source)Anatomical Location / LateralityCollection Method / Volume Collection TimeReceived HsacZknno61/15/2025 4:29 PM EDT Narrative Authorizing ProviderResult TypeResult StatusDanimichele Borja [facility]ARE TEST ENTER/EDIT ORDERABLESFinal Result * Microalbumin / creatinine, urine ratio (07/17/2023 11:02 AM EST)ComponentValue Ref RangeTest MethodAnalysis TimePerformed AtPathologist SignatureCREATININE, RANDOM ROMAF3650 - 320 mg/dLQUESTALBUMIN, URINE0.2See Note: mg/dLQUESTComment: Reference Range: Reference Range Not established ALBUMIN/CREATININE RATIO, RANDOM URINE3<30 mcg/mg creatQUESTComment: The ADA defines abnormalities in albumin excretion as follows: Albuminuria Category ?Result (mcg/mg creatinine) Normal to Mildly increased <30 Moderately increased ? 30-299 Severely increased > OR = 300 The ADA recommends that at least two of three specimens collected within a 3-6 month period be abnormal before considering a patient to be within a diagnostic category. Specimen (Source)Anatomical Location / LateralityCollection Method / Volume Collection TimeReceived TimeUrineUrine specimen obtained by clean catch procedure / Wgyovtn2207/17/2023 11:02 AM EST07/17/2023 11:02 AM EST Narrative Resulting Agency Comment Performing Organization Information ?Site ID: [id number] ?Name: [facility] ?Address: [address] [place] [id number] ?Director: Sagar Pathak MD Authorizing ProviderResult TypeResult StatusDalillian Borja MDLAB URINE ORDERABLESFinal ResultPerforming OrganizationAddressCity/[facility] CodePhone Number QUEST * Cologuard?? colon cancer screening (05/26/2023 8:50 PM EST)ComponentValueRef RangeTest MethodAnalysis TimePerformed AtPathologist SignatureNONINV COLON CA DNA+OCC BLD SCRN STL-OVJZvfjrokbDwstnigw87/02/2024 5:58 PM [employer] (CLIA #:[id number])Comment: NEGATIVE TEST RESULT. A negative Cologuard result indicates a low likelihood that a colorectal cancer (CRC) or advanced adenoma (adenomatous polyps with more advanced pre-malignant features) ??is present. The chance that a person with a negative Cologuard test has a colorectal cancer is less than 1in 1500 (negative predictive value >99.9%) or has an advanced adenoma is less than 5.3% (negative predictive value 94.7%). These data are based on a prospective cross-sectional study of 10,000individuals at average risk for colorectal cancer who were screened with both Cologuard and colonoscopy. (Divina Barbosa. yoli al, N Engl J Med 2014;370(14):2433-1963) The normal value (reference range) for this assay is negative. COLOGUARD RE-SCREENING RECOMMENDATION: Periodic colorectal cancer screening is an important part ofpreventive healthcare for asymptomatic individuals at average risk for colorectal cancer. ??Following a negative Cologuard result, the [place] [employer] and U.S. Multi-Society Task Force screening guidelines recommend a Cologuard re-screening interval of 3 years. References: [place] [employer] Guideline for Colorectal Cancer Screening: https://www.cancer.or g/cancer/ghkyw-kvmfrx-krgagm/kbkyvsirm-kvopstplo-mrqvcfm/acs-recommendations.htm rachele; Jasper PAGE, Lloyd WALDROP, Shandra HEBERT, Colorectal Cancer Screening: Recommendations for Physicians and Patients from the U.S. Multi-Society Task Force on Colorectal Cancer Screening , Am J Gastroenterology 2017; 112:9012-1389. TEST DESCRIPTION: Composite algorithmic analysis of stool DNA-biomarkers with hemoglobin immunoassay. ?? Quantitative values of individual biomarkers are not reportable and are not associated with individual biomarker result reference ranges. Cologuard is intended for colorectal cancer screening ofadults of either sex, 45 years or older, who are at average-risk for colorectal cancer (CRC). Cologuard has been approved for use by the U.S. FDA. The performance of Cologuard was established in a cross sectional study of average-risk adults aged 50-84. Cologuard performance in patients ages 45 to 49 years was estimated by sub-group analysis of near-age groups. Colonoscopies performed for a positive result may find as the most clinically significant lesion: colorectal cancer [4.0%], advanced adenoma (including sessile serrated polyps greater than or equal to 1cm diameter) [20%] or non- advanced adenoma [31%]; or no colorectal neoplasia [45%]. These estimates are derived from a prospective cross-sectional screening study of 10,000 individuals at average risk for colorectal cancer who were screened with both Cologuard and colonoscopy. (Divina Barbosa. yoli al, N Engl J Med 2014;370(14):0869-8574.) Cologuard may produce a false negative or false positive result (no colorectal cancer or precancerous polyp present at colonoscopy follow up). A negative Cologuard test result does not guarantee the absence of CRC or advanced adenoma (pre-cancer). The current Cologuard screening interval is every 3 years. ([place] [employer] and U.S. Multi-Society Task Force). Cologuard performance data in a 10,000 patient pivotal study using colonoscopy as the reference method can be accessed at the following location: www.[employer].Vertishear/results. Additional description of the Cologuard test process, warnings and precautions can be found at www.cologuard.com. Specimen (Source)Anatomical Location / LateralityCollection Method / Volume Collection TimeReceived TimeStool specimen (specimen)05/26/2023 8:50 PM EST 05/28/2023 9:39 AM EST Narrative Authorizing ProviderResult TypeResult StatusDanimichele [facility] ORDERABLESFinal ResultPerforming OrganizationAddressCity/State/ZIP CodePhone Number .JDLab (CLIA #:[id number]) [address] [place] [address], [place] [phone] [employer] (CLIA #:[id number]) [address] [place] [address] from Last 3 Months or Most Recently Relevant to Health Maintenance Insurance Care Teams Team MemberRelationshipSpecialtyStart DateEnd Date Weston Borja MD [address] [place] [address] [address] [place] [address] [facility] - [facility] Weston Borja MD [address] [facility] [address] [place] [address] PCP - [facility]06/01/20
--- OUTSIDE RECORDS SUMMARY | 2025-03-29 14:18 | XMS_ITS | Encounter Summary ---
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 Name Role Phone Weston Borja MD Primary Care Provider [phone] Weston Borja MD Unavailable [phone] Encounter Details DateTypeDepartmentCare Team (Latest Contact Info)Iheyolslmav06/10/2025linisync Result Encounter [facility] Unsolicited Provider, Generic External Data Social History Tobacco UseTypesPacks/DayYears UsedDateSmoking Tobacco: NeverSmokeless Tobacco: NeverAlcohol UseStandard Drinks/WeekCommentsNot Currently0 (1 standard drink = 0.6 oz pure alcohol)caffeine: yesPHQ-2AnswerDate RecordedPatient Health Questionnaire-2 Wplxu341Sex and Gender InformationValueDate RecordedSex Assigned at UybmrWdzt92/11/2023 10:51 AM EDTLegal AvnAvcn4408/13/2022 7:11 PM EDT Gender TmihfocoKbwh74/11/2023 10:51 AM EDTSexual OrientationNot on file documented as of this encounter Plan of Treatment DateTypeDepartmentCare Team (Latest Contact Info)Ayhkzlqxxwv93/02/2025 1:30 PM ESTOffice Visit [facility] [address] [place] [address] Joaquín Ghosh, DO [address] [place] [address] documented as of this encounter Procedures Procedure NamePriorityDate/TimeAssociated DiagnosisCommentsCT INTERNAL AUDITORY CANALS/POSTERIOR FOSSA WO IV TLXBYFNK24/10/2025 5:08 PM EDT documented in this encounter Results * CT internal auditory canals/posterior fossa wo IV contrast (03/10/2025 5:08 PM EDT)Anatomical RegionLateralityModalityHead, NeckComputed TomographySpecimen (Source)Anatomical Location / LateralityCollection Method / VolumeCollection TimeReceived Time03/10/2025 5:08 PM EDT Narrative 03/23/2025 1:51 PM EDT [facility] ?[address] ? [place] [address] ? CT Scan Report ? Signed ? Patient: LUCIE HIGH G ?MR#: [id number] ?? : 1950 ?Acct:[id number] ?? Age/Sex: 74 / M ?ADM Date: 03/10/25 ?? Loc: CT ? Attending Dr: Antwon Robledo M.D. ? Ordering Physician: Antwon Robledo M.D. ?? Date of Service: 03/10/25 ?? Procedure(s): CT int auditory canals w/o con ?? Accession Number(s): [id number] ? cc: WESTON BORJA ? [facility] ? [address] ? [place] [address] ? Patient Name: ?? LUCIE HIGH ? MRN: [facility]:[id number] ? date: 1950 ?Sex: M ?? Assigned Patient Location: CT ?? Current Patient Location: CT ?? Accession/Order Number: [id number] ?? Exam Date: 03/10/2025 ??14:30 ?Report Date: 03/10/2025 ??17:08 ? At the request of: ?? ANTWON ??NATALIE ? Procedure: ??CT int auditory canals [...] M.D. ??03/10/2025 5:08 PM ? Dictation Location: [facility] ? Electronically authenticated by: [id number] ??Y ?? Date: 03/10/2025 ??17:08 ? Dictated By: ?Todd Hartman M.D. ? Signed By: ?03/23/25 1351 ? DD/ 1708 ? TD/TT: ? 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 Ordering Physician: Antwon Robledo M.D. Date of Service: 03/10/25 Procedure(s): CT int auditory canals w/o con Accession Number(s): [id number] cc: WESTON BORJA The [address] [address] Patient Name: LUCIE HIGH MRN: [id number] date: 1950 Sex: M Assigned Patient Location: CT Current Patient Location: CT Accession/Order Number: [id number] Exam Date: 03/10/2025 14:30 Report Date: 03/10/2025 17:08 At the request of: ANTWON ROBLEDO MD Procedure: CT int auditory canals w/o [...] Hartman M.D. 03/10/2025 5:08 PM Dictation Location: [place] [address] Electronically authenticated by: [id number] Y Date: 7:08 Dictated By: Todd Hartman M.D. Signed By:03/23/25 1351 DD/ 1708 TD/TT: Dredge Pipe Installer: Authorizing ProviderResult TypeResult StatusGeneric External Data ProviderIMG CT PROCEDURESFinal Result documented in this encounter Visit Diagnoses Not on filedocumented in this encounter Care Teams Team MemberRelationshipSpecialtyStart DateEnd Date Weston Borja MD [address] [facility] [address] [place] [address] PCP - GeneralInternal Medicine10/07/22 Weston Borja MD [address] [facility] [address] [place] [address] PCP - [employer]1documented as of this encounter
--- OUTSIDE RECORDS SUMMARY | 2025-03-29 14:18 | XMS_ITS | Data Portability ---
Author Organization [place] - [facility] [place], [facility] Address [address] [place] [address] Assessment Encounter Date Assessment Date Assessment LastModified by Organization Details LastModified Time 12/11/2023 12/11/2023 73 y/o referred by Dr. Palomino for e/m has polyneuropathy and radiculopathy. interested in scs, anabel. has tried lyrica and multiple meds and supplements. will obtain mri and psych clearance. We discussed thoroughly with the patient the risks and benefits of the steroid injection including hyperglycemia or elevated blood sugar and osteoporosis. The patient voiced their understanding and acknowledges that their blood sugar and/or diabetes is under control and the potential risk for bone loss and by extension bone fracture. The patient has failed 3 months of conservative management, including trials of nsaids, tylenol, neuropathic agents, muscle relaxants and physical therapy or spinal manipulation. The patient is not asurgical candidate at this time. The patient is currently involved in our pain management program and undr my direction for a home exercise plan of care as clinically appropriate. The pain is severe and impairing function and adl's despite activity modification. There are no contraindications to injection therapy, such as bleeding or infection risk. The injection is medically necessary so as to avoid any potential escalation to opioid therapy I counseled the patient extensively regarding activity modification, their diagnosis, treatment options and the plan of care. Discussed the risks, benefits, and alternatives. The patient is agreeable. I look forward to their response. They will follow up accordingly. Thank you for allowing me to par ticipate in their care. This office visit was coded a level 5 because the patient encounter involved a detailed problem history and examination involving an extremely complex medical issues or multiple complex medical issue. The combination of the above required the highest degree of medical decision making and time. Thisencounter took an extensive amount of time based on medical history and patient complexity.germanya Not ywvnviprb49/12/2024 14:47:46 Plan of Treatment Reminders Order DateSubmit DateProviderLast Modified ByOrganization DetailsLast Modified TimeDetailsAppointmentsNone recorded.LabNone recorded.Referralpsychologist rxknqsio63THENANot mpycdrasz09/13/2025 05:01:39ProceduresNone recorded.SurgeriesSPINAL CORD STIMULATOR TRIAL (SURG)allyn Not avpsuiplg34/12/2024 14:50:58ImagingMRI, lumbar spine, w/o okbaarhq84/12/2024 12/11/2023THENANot kdqsfcrru86/13/2025 05:01:39Medication OrdersNone recorded. Patient TargetsNo targets recorded. Patient InstructionsNo instructions recorded. Reason for Referral Psychologist Referral for Po lyneuropathy Referring Physician: Dharmesh Orona, Pain Management, Encounter Date: 12/11/2023 Results Created Date Observation Date Name Description Value Unit Range Abnormal Flag Note LastModifiedBy Organization Detail LastModifiedTime 12/14/2023 XR, lumbosacral spineNo observation recorded.rikaqhrrmp0Pgf Tvndgjdor50/15/2024 10:23:40 Result Notes None recorded. Problems No Known Problems Medical Equipment None Reported. Allergies Allergen ID Allergen Name Allergen Category Reaction Reaction Severity Criticality Documentation Date Start Date Code Code System Note Provider Name and Address Organization Details Recorded Time 05110 Product containing penicillin (product) m edication Not available Not available Not fojxtzeeq03/12/[id number] J. Hedaya, MD [address] [place] [address], [id number], [facility]12/11/2023 14:31:04 Medications Name Sig Start Date Stop Date Status Note LastModified by Organization Details LastModified Time oxcarbazepine 150 mg tablet activeNot AvailableNot AvailableNot Availablecarvedilol 12.5 mg tabletactiveNot AvailableNot AvailableNot Availableazithromycin 250 mg tabletTAKE 2 TABLETS BY MOUTH TODAY, THEN TAKE 1 TABLET DAILY FOR 4 DAYS DIRECTEDactiveNot Available Not AvailableNot Availabletolterodine ER 4 mg capsule,extended release 24 hr activeNot AvailableNot AvailableNot Availableprednisone 20 mg tabletTAKE 3 TABLETS BY MOUTH DAILY X3 DAYS, 2 TABLETS X3 DAYS, 1 TABLET X3 DAYSactiveNot AvailableNot AvailableNot Availablethiamine HCl (vitamin B1) 100 mg tabletTAKE 1 TABLET BY MOUTH EVERY DAY IN THE MORNINGactiveNot AvailableNot AvailableNot Availablemetronidazole 500 mg tabletTAKE 1 TABLET BY MOUTH THREE TIMES A DAY activeNot AvailableNot AvailableNot Availableciprofloxacin 500 mg tabletTAKE 1 TABLET BY MOUTH IN THE MORNING AND BEFORE BEDTIME FOR 7 DAYSactiveNot Available Not AvailableNot Availablesulfamethoxazole 800 mg-trimethoprim 160 mg tabletTAKE 1 TABLET BY MOUTH IN THE MORNING AND BEFORE BEDTIME FOR 14 DAYSactiveNot AvailableNot AvailableNot Availableglimepiride 2 mg tabletTAKE 1 TABLET BY MOUTH IN THE MORNING BEFORE A MEALactiveNot AvailableNot AvailableNot Available tamsulosin 0.4 mg capsuleTAKE 1 CAPSULE BY MOUTH EVERY DAYactiveNot AvailableNot AvailableNot Availabledexamethasone 2 mg tabletactiveNot AvailableNot Available Not Availablefurosemide 20 mg tabletTAKE 1 TABLET BY MOUTH DAILY FOR 7 DAYS. activeNot AvailableNot AvailableNot Availablelosartan 50 mg-hydrochlorothiazide 12.5 mg tabletTAKE 1 TABLET BY MOUTH EVERY DAYactiveNot AvailableNot Available Not Availablefluticasone propionate 50 mcg/actuation nasal spray,suspensionUSE 2 SPRAYS IN EACH NOSTRIL EVERY DAYactiveNot AvailableNot AvailableNot Available rosuvastatin 5 mg tabletTAKE 1 TABLET BY MOUTH EVERY DAYactiveNot AvailableNot AvailableNot Availablepregabalin 25 mg capsuleTAKE 1 CAP BY MOUTH IN THE MORNING,IN THE EVENING,AND BEFORE BEDTIMEactiveNot AvailableNot AvailableNot Availablepregabalin 75 mg capsuleactiveNot AvailableNot AvailableNot Available Vitals None Recorded Social History None recorded. Functional Status None recorded. Mental Status None recorded. Family History Relationship Description Onset Age of this Age Resolved Age Notes LastModified by Organization Details LastModified Time Father No current problems or disabilit y ahedayaNot tyyymbgll97/12/2024 14:31:13MotherNo current problems or disability ahedayaNot xgpgqxieb91/12/2024 14:31:13 Medical History Condition Response Diabetes Y Heart Disease Y Hypertension Y High Cholesterol Y Past Encounters Encounter ID Performer Location Encounter Start Date Encounter Closed Date Diagnosis/Indication Diagnosis SNOMED-CT Code Diagnosis ICD10 Code Diagnosis IMO Codes Diagnosis Note [id number] MD Allison Jose/[facility] [address] [place] [address] 12/11/2023 14:26:53 12/11/2023 15:15:32 Polyneuropathy 96687321 G62.9 Lumbosacral [id number] Health Concerns Section Related Observation LastModified by Organization Detai ls LastModified Time None Recorded Concern Status LastModified by Organization Details LastModified Time None Recorded Advance Directives Directive None Recorded Payers Insurance Date Sequence Insurance Name Policy Number Policy Reeder Covered Member ID Reeder Member ID Guarantor Name 12/16/2023 1 [employer] (MEDICARE REPLACEMENT/ADVANTAGE - PPO) [id number] Frankie De Anda [id number] Frankie De Anda Notes Date Note Type Note Provider Name and Address Organization Details Recorded Time 12/11/2023 text/html Back PainReporte d by PatientHPIFor location, patient reportspain radiating to the buttocks,pain radiating to the legs, andpain radiating to the footbut reportslumbar. For quality, patient reportssharp. For severity, patient reportssevere (8-10),interference with sleep, andinterference with work. For associated symptoms, patient reportsnumbness of the legs/feet. For duration, patient reportschronic. For onset/timing, patient reportsrecurrent episode. For context, patient reportsprior back problems,used medications for back pain, andhad evaluations by back specialist. For aggravating factors, patient reportsmovement/positi oning. For prior imaging, patient reportsemg,mri, andx-ray. Dharmesh Orona MD [address] [facility], [place], [address], [facility] [place] - [facility] 12/11/2023 14:51:29
--- OUTSIDE RECORDS SUMMARY | 2025-03-29 14:18 | XMS_ITS | Clinical Summary ---
Author Organization [facility] Address [address] [place] [address] Phone Care Team Providers Care Energy Consultant Name Role Phone Weston Borja MD Primary Care Provider [phone] Social History Tobacco UseTypesPacks/DayYears UsedDateSmoking Tobacco: Never AssessedSex and Gender InformationValueDate RecordedSex Assigned at BirthNot on fileLegal Sex Male04/25/2022 11:45 PM ESTGender IdentityNot on fileSexual OrientationNot on file Last Filed Vital Signs Vital SignReadingTime TakenCommentsBlood Xvajpwui088/7805 2:07 PM EDT Vlncz7975/19/2023 1:56 PM EDTTemperature--Respiratory Rate--Oxygen Saturation-- Inhaled Oxygen Concentration--Fixshl30.9 kg (196 lb)10/17/2022 1:56 PM EDTHeight 170.2 cm (5' 7 )10/17/2022 1:56 PM EDTBody Mass Index30.705 1:56 PM EDT Plan of Treatment Health MaintenanceDue DateLast DoneCommentsLipid Panel1948Medicare Annual Wellness Visit (AWV)1950Hepatitis C Ixgilbssp55/05/1967DTaP/Tdap/Td Vaccines (1 - Tdap)1970Pneumococcal Vaccine (1 of 1 - PCV)1998Zoster Vaccines (1 of 2)1998RSV High Risk: (Elderly (60+) or Population) (1 - 1-dose 75+ series)2023Influenza Vaccine (#1)5COVID-19 Vaccine ( season)2025HIB VaccinesAged OutNo longer eligible based on patient's age to complete this topicHPV VaccinesAged OutNo longer eligible based on patient's age to complete this topicHepatitis A VaccinesAged OutNo longer eligible based on patient's age to complete this topicHepatitis B VaccinesAged OutNo longer eligible based on patient's age to complete this topic IPV VaccinesAged OutNo longer eligible based on patient's age to complete this topicMeningococcal VaccineAged OutNo longer eligible based on patient's age to complete this topicRotavirus VaccinesAged OutNo longer eligible based on patient's age to complete this topic Insurance Care Teams Team MemberRelationshipSpecialtyStart DateEnd Weston Borja MD [address] [facility] [address] [place] [address] [facility] - [facility]01/20/23
--- OUTSIDE RECORDS SUMMARY | 2025-03-29 14:18 | XMS_ITS | Encounter Summary ---
Author Organization [facility] Address [address] [facility] [place] [address] Care Team Providers Care Support Group Manager Name Role Phone Weston Borja MD Primary Care Provider [phone] Weston Borja MD Unavailable [phone] Encounter Details DateTypeDepartmentCare Team (Latest Contact Info)Lanfxgjswhx48/29/2025amboo flowsheet [facility] [place] [facility] [address] [place] [id number] Lindsay Robledo MD [address] [place], [place] [id number] Social History Tobacco UseTypesPacks/DayYears UsedDateSmoking Tobacco: NeverSmokeless Tobacco: NeverAlcohol UseStandard Drinks/WeekCommentsNot Currently0 (1 standard drink = 0.6 oz pure alcohol)caffeine: yesPHQ-2AnswerDate RecordedPatient Health Questionnaire-2 Ynfrv315Sex and Gender InformationValueDate RecordedSex Assigned at NqsrrAgqf57/11/2023 10:51 AM EDTLegal CgrFksl1508/13/2022 7:11 PM EDT Gender MlsqmzswBkbz95/11/2023 10:51 AM EDTSexual OrientationNot on file documented as of this encounter Plan of Treatment DateTypeDepartmentCare Team (Latest Contact Info)Uvekitpohwd90/02/2025 1:30 PM ESTOffice Visit [facility] [address] [place] [phone] Joaquín Ghosh, DO [address] [place] [address] documented as of this encounter Visit Diagnoses Not on filedocumented in this encounter Care Teams Team MemberRelationshipSpecialtyStart DateEnd Date Weston Borja MD [address] [place] [address] PCP - GeneralInternal Medicine10/07/22 Weston Borja MD [address] [place] [address] PCP - [employer]1documented as of this encounter
--- OUTSIDE RECORDS SUMMARY | 2025-03-29 14:18 | XMS_ITS | Encounter Summary ---
Author Organization [facility] Address [address] [facility] [place] [address] Care Team Providers Care Associate Partner Name Role Phone Weston Borja MD Primary Care Provider [phone] Weston Borja MD Unavailable [phone] Encounter Details DateTypeDepartmentCare Team (Latest Contact Info)Czzpswebjbl25/29/2025Travel Social History Tobacco UseTypesPacks/DayYears UsedDateSmoking Tobacco: NeverSmokeless Tobacco: NeverAlcohol UseStandard Drinks/WeekCommentsNot Currently0 (1 standard drink = 0.6 oz pure alcohol)caffeine: yesPHQ-2AnswerDate RecordedPatient Health Questionnaire-2 Gppkb339Sex and Gender InformationValueDate RecordedSex Assigned at TakihLrzb90/11/2023 10:51 AM EDTLegal DwzOjpp8508/13/2022 7:11 PM EDT Gender ZteyibqrOxmv73/11/2023 10:51 AM EDTSexual OrientationNot on file documented as of this encounter Plan of Treatment DateTypeDepartmentCare Team (Latest Contact Info)Icdleqwbvwf71/02/2025 1:[address]Office [address] [facility] [address] [place] [address] Joaquín Ghosh, DO [address] [place] [address] documented as of this encounter Visit Diagnoses Not on filedocumented in this encounter Care Teams Team MemberRelationshipSpecialtyStart DateEnd Date Weston Borja MD [address] [facility] [address] [place] [address] [facility] - [facility]10/07/22 Weston Borja MD [address] [facility] [address] [place] [address] PCP - [facility]06/01/20documented as of this encounter
--- OUTSIDE RECORDS SUMMARY | 2025-03-29 14:26 | XMS_ITS | CCD ---
Author Organization [facility] Care Team Providers Care Eclectic Doctor Name Role Phone Judith Gibson Unavailable Weston Borja II Primary Care Unavail able Emily BARRERA, Dr. Cosmo Torrez Attending Unavailable Emily BARRERA, Dr. Cosmo Torrez Referring Unavailable WESTON BORJA Primary Care Physician [phone] LEONARD ESPITIA Admitting Unavailable JENNIFER, DR NIETO [...] Unavailable Unavailable Unavailable Weston Borja MD Unavailable [phone] Weston Borja MD Primary Care Provider [phone] Thursday Mercedez LANG Unavailable Frankie Irby DO Unavailable [phone] Frankie Irby DO Unavailable TITA WESTBROOK Attending Unavailable BORJA, WESTON Matta Attending Unavailable BORJA, WESTON B Attending Unavailable BORJA, WESTON B Attending Unavailable HEMMERTITA Attending Unavailable BORJA, WESTON Matta Attending Unavailable GEORGIE, MERRY Juarez Attending Unavailable GEORGIE, MERRY Juarez Attending Unavailable BORJA, WESTON Matta Attending Unavailable TIMMIS, ANTWON H Attending Unavailable BORJA, WESTON B Referring Unavailable BRINK, SYBIL Attending Unavailable BORJA, WESTON B Referring Unavailable BRINK, SYBIL Attending Unavailable BORJA, WESTON B Referring Unavailable BORJA, WESTON B Attending Unavailable BLACKSTON, ALEXIS Barbosa Attending Unavailable BORJA, WESTON B Referring Unavailable BRINK, SYBIL Attending Unavailable BORJA, WESTON B Referring Unavailable BLACKSTON, ALEXIS Barbosa Attending Unavailable BORJA, [...] BORJA, WESTON B Attending Unavailable Allergies Allergy ClassificationReported Allergen(s)Allergy TypeDate of OnsetReaction(s) Facility (1 source)Penicillin GDrug AllergyUnknoP[facility] [place] Other (20 sources)Penicillins; Translations: [penicillins]Drug anfewpo54-54-3987 [facility] (finding), [facility] (20 sources)Penicillin VDrug Pkrxrsj63-62-5280[facility] (20 sources)CiprofloxacinDrug Ksrokax60-84-1754EkvubEMEA Healthcare Work Phone: Medications Current Medications MedicationDrug Class(es)DatesSig (Normalized)Sig (Original)aspirin 81 mg oral tablet (7 sources)Platelet Aggregation Inhibitor, Nonsteroidal Anti-inflammatory Drug Start: 90-91-8319qoni 1 tablet by mouth once dailyaspirin 81 mg oral tablet 81 mg = 1 tab(s), Oral, Daily, Refills(s) 0 Start Date: 04/05/19 Status: Ordered Aspirin EC 81 MG TBEC TAKE 1 TABLET DAILY. Quantity: 0 Refills: 0 Ordered: 01-Sep-2022 DO Activetake 1 tablet by mouth every twenty-four hoursAspirin 81 MG 1 tablet Orally Once a day Activeazithromycin 250 mg oral tablet (2 sources)Macrolide AntimicrobialStart: 08-22-2024 End: 26-65-4459ajyu 2 tablets by mouth once daily, then take 1 tablet by mouth once dailyazithromycin (Zithromax) 250 MG tablet Indications: Acute sinusitis, recurrence not specified, unspecified location Take 2 tablets (500 mg) by mouth Daily for 1 day, THEN 1 tablet (250 mg) Daily for 4 days. 6 tablet 08/22/2024 08/27/2024 Activecarvedilol 12.5 mg oral tablet (20 sources)alpha-Adrenergic Horacio, beta-Adrenergic BlockerStart: 03-10-2025 carvedilol (Coreg) 12.5 MG tablet Indications: Essential (primary) hypertension TAKE 1 TABLET TWICEDAILY 200 tablet 3 03/10/2025 ActiveStart: 12-08-2023 Carvedilol Active MG PO December 08, 2023 12:00amStart: 10-01-2022 End: 69-71-4267formuexpeu (Coreg) 12.5 MG tablet Indications: Essential (primary) hypertension TAKE 1 TABLET TWICEDAILY 180 tablet 3 04/20/2024 Active Coreg 3.125 MG Orally ActivecloNIDine hydrochloride 0.1 mg oral tablet (20 sources)Central alpha-2 Adrenergic AgonistStart: 02-13-2025 End: 15-20-7122tnfq 1 tablet by mouth every eight hours for hypertension cloNIDine (Catapres) 0.1 MG tablet Indications: Essential (primary) hypertension Take 1 tablet (0.1mg) by mouth every 8 (eight) hours if needed for high blood pressure (Take if SBP is > 175) 60 tablet 5 02/13/2025 08/12/2025 Active End: 91-54-0324bbkLKArto (Catapres) 0.1 MG tablet Take by mouth 2 (two) times a day 10/17/2024 Discontinued (Therapy completed)fluticasone propionate 0.05 mg/actuat metered dose nasal spray (20 sources)CorticosteroidStart: 67-91-1886koqb 2 spray(s) nasal route once dailyfluticasone (Flonase) 50 MCG/ACT nasal spray Indications: Lesion of nasal cavity SPRAY 2 SPRAYS INTO EACH NOSTRIL EVERY DAY 16 mL 3 02/21/2025 Active Start: 50-00-9443cqrk 2 spray(s) nasal route once dailyfluticasone (Flonase) 50 MCG/ACT nasal spray Indications: Lesion of nasal cavity SPRAY 2 SPRAYS INTO EACH NOSTRIL EVERY DAY 16 mL 3 07/20/2024 ActiveStart: 41-41-7302leyb 2 spray(s) nasal route once dailyfluticasone (Flonase) 50 MCG/ACT nasal spray Indications: Lesion of nasal cavity SPRAY 2 SPRAYS INTO EACH NOSTRIL EVERY DAY 16 mL 1 05/10/2024 ActiveStart: 71-51-1029jvfq 2 spray(s) nasal route once daily fluticasone (Flonase) 50 MCG/ACT nasal spray Indications: Lesion of nasal cavity USE 2 SPRAYS IN EACH NOSTRIL EVERY DAY 16 mL 1 12/11/2023 ActiveStart: 60-46-8151Apmonmtvchp Propionate Active INTRANASAL December 08, 2023 12:00amStart: 86-33-4744bmlo 2 spray(s) nasal route once dailyfluticasone (Flonase) 50 MCG/ACT nasal spray Indications: Lesion of nasal cavity INHALE 2 SPRAYS INEACH NOSTRIL EVERY DAY 16 g 3 02/16/2023 ActiveStart: 79-65-0644Lcusttx 0.05 mg/inh [place] 2 spray(s), Nasal, Daily, Refill(s) 0 Start Date: 09/29/22 Status: Orderedtake 50 ug nasal route once dailyFlonase Allergy Relief 50 MCG/ACT Nasal Suspension USE 1 TO 2 SPRAYS IN EACH NOSTRIL ONCE DAILY. 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, without long-term current use of insulin, unspecified laterality (HCC) TAKE 1 TABLET EVERY DAY 100 tablet 3 03/10/2025 ActiveStart: 78-41-2682Hmuuhvucrba Active MG PO December 08, 2023 12:00amStart: 04-22-2023 End: 11-37-8422mqbrrlgcjbg (Amaryl) 2 MG tablet Indications: 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 90 tablet 3 03/03/2025 ActiveStart: 10-12-2024 End: 86-05-6801xrhi 1 tablet by mouth once dailyloratadine (Claritin) 10 MG tablet Indications: Dysfunction of right eustachian tube Take 1 tablet (10 mg) by mouth Daily for 10 days 10 tablet 10/12/2024 ActivemetFORMIN hydrochloride 500 mg oral tablet (7 sources)BiguanideStart: 40-82-7799tbxm 1 tablet by mouth twice dailymetformin 500 mg Tab 500 mg = 1 tab(s), Oral, BID, Refills(s) 0 Start Date: 10/01/22 Status: Orderedtake 1 tablet by mouth every twelve hours at mealtimemetFORMIN HCl - 500 MG Oral Tablet TAKE 1 TABLET EVERY 12 HOURS WITH FOOD. Quantity: 0 Refills: 0 Ordered: 01-Sep-2022 DO Activetake 1 tablet by mouth every twenty-four hoursmetFORMIN HCl 1000 MG 1 tablet with a meal Orally Once a day Active methylPREDNISolone (2 sources)CorticosteroidStart: 01-12-2025 End: 35-80-3719mghpsxSQYDZYDyhzut (Medrol Dospak) 4 MG tablets Indications: Atopic dermatitis, unspecified type Follow schedule on package instructions tablet 01/12/2025 01/19/2025 Activenitrofurantoin, macrocrystals 25 mg / nitrofurantoin, monohydrate 75 mg oral capsule (4 sources)Nitrofuran AntibacterialStart: 03-16-2024 End: 88-77-5678hqgh 1 capsule by mouth in the morningnitrofurantoin, macrocrystal-monohydrate, (Macrobid) 100 MG capsule Indications: Acute cystitis with hematuria Take 1 capsule (100 mg) by mouth in the morning and 1 capsule (100 mg) before bedtime. Do all this for 7 days. 14 capsule 03/16/2024 03/23/2024 ActiveStart: 03-07-2024 End: 64-59-2043lohk 1 capsule by mouth in the morningnitrofurantoin, macrocrystal-monohydrate, (Macrobid) 100 MG capsule Indications: Acute cystitis with hematuria Take 1 capsule (100 mg) by mouth in the morning and 1 capsule (100 mg) before bedtime. Do all this for 5 days. 10 capsule 03/07/2024 03/14/2024 DiscontinuedpredniSONE 10 mg oral tablet (8 sources)Start: 02-08-2025 End: 45-49-0067mdyg 1 tablet by mouth three times daily, then take 1 tablet by mouth twice daily, then take 1 tablet by mouth once dailypredniSONE (Deltasone) 10 MG tablet Indications: Dysfunction of right eustachian tube Take 1 tablet(10 mg) by mouth 3 (three) times a day for 3 days, THEN 1 tablet (10 mg) 2 (two) times a day for 3 days, THEN 1 tablet (10 mg) Daily for 3 days. 18 tablet 02/08/2025 02/17/2025 ActiveStart: 10-12-2024 End: 14-35-4432bhoy 1 tablet by mouth three times daily, then take 1 tablet by mouth twice daily, then take 1 tablet by mouth once dailypredniSONE (Deltasone) 10 MG tablet Indications: Dysfunction of right eustachian tube Take 1 tablet(10 mg) by mouth 3 (three) times a day for 3 days, THEN 1 tablet (10 mg) 2 (two) times a day for 3 days, THEN 1 tablet (10 mg) Daily for 3 days. 18 tablet 10/12/2024 10/21/2024 Activepregabalin 100 mg oral capsule (20 sources)Start: 12-26-2024 End: 66-57-6076ezhi 1 capsule by mouth in the morningpregabalin (Lyrica) 100 MG capsule Indications: Diabetic peripheral neuropathy (HCC) Take 1 capsule(100 mg) by mouth in the morning and 1 capsule (100 mg) before bedtime. 60 capsule 5 12/26/2024 06/24/2025 ActiveStart: 07-18-2024 End: 60-85-4465eyuf 1 capsule by mouth in the morning, then take 1 capsule by mouth in the evening, then take 1 capsule by mouth at bedtimepregabalin (Lyrica) 25 MG capsule Indications: Diabetic peripheral neuropathy (CMS/HCC) , Idiopathic progressive neuropathy Take 1 capsule (25 mg) by mouth in the morning and 1 capsule (25 mg) in theevening and 1 capsule (25 mg) before bedtime. 07/18/2024 08/22/2024 DiscontinuedStart: 09-02-2023 End: 16-46-4014xdlq 1 capsule by mouth in the morning, then take 1 capsule by mouth in the evening, then take 1 capsule by mouth at bedtimepregabalin (Lyrica) 75 MG capsule Indications: Idiopathic progressive neuropathy Take 1 capsule (75 mg) by mouth in the morning and 1 capsule (75 mg) in the evening and 1 capsule (75 mg) before bedtime. 90 capsule 2 09/02/2023 05/16/2024 DiscontinuedStart: 05-12-2023 End: 97-84-6333jkig 1 capsule by mouth in the morning, then take 1 capsule by mouth in the evening, then take 1 capsule by mouth at bedtimepregabalin (Lyrica) 25 MG capsule Indications: Idiopathic progressive neuropathy Take 1 capsule (25 mg) by mouth in the morning and 1 capsule (25 mg) in the evening and 1 capsule (25 mg) before bedtime. 270 capsule 0 05/12/2023 08/10/2023 Activerosuvastatin calcium 5 mg oral tablet (20 sources)HMG-CoA Reductase InhibitorStart: 49-67-9211adetedvookpp (Crestor) 5 MG tablet Indications: Pure hypercholesterolemia, unspecified TAKE 1 TABLET AT BEDTIME 100 tablet 3 03/10/2025 ActiveStart: 93-60-5953Azcymbccovly Active MG PO December 08, 2023 12:00amStart: 04-05-2019 End: 80-90-3075yiwvzebcglpm (Crestor) 5 MG tablet Indications: Pure hypercholesterolemia, unspecified TAKE 1 TABLET AT BEDTIME 90 tablet 3 04/20/2024 Activesulfamethoxazole 400 mg / trimethoprim 80 mg oral tablet (2 sources)Dihydrofolate Reductase Inhibitor Antibacterial, Sulfonamide AntimicrobialStart: 01-12-2025 End: 89-00-6818gmrg 1 tablet by mouth oncesulfamethoxazole-trimethoprim (Bactrim) 400-80 MG tablet Indications: Folliculitis Take 1 tablet bymouth every 12 (twelve) hours for 10 days 20 tablet 01/12/2025 01/22/2025 Activetamsulosin hydrochloride 0.4 mg oral capsule (20 sources)alpha-Adrenergic BlockerStart: 18-01-8367Izfepayfxg Active MG PO December 08, 2023 12:00amStart: 10-28-2023 End: 95-23-2701znig 1 capsule by mouth once dailytamsulosin (Flomax) 0.4 MG 24 hr capsule Indications: BPH with urinary obstruction TAKE 1 CAPSULE BY MOUTH EVERY DAY 90 capsule 3 10/25/2024 Activethiamine 100 mg oral tablet (1 source)Start: 05-12-2023 End: 43-62-2840dpcq 1 tablet by mouth in the morningthiamine (Vitamin B-1) 100 MG tablet Indications: Idiopathic progressive neuropathy Take 1 tablet (100 mg) by mouth in the morning. 90 tablet 3 05/12/2023 05/11/2024 Activetolterodine tartrate 2 mg oral tablet (5 sources)Cholinergic Muscarinic AntagonistStart: 15-30-2968nmnf 1 tablet by mouth twice daily as needed for muscle spasmsDetrol 2 mg Tab 2 mg = 1 tab(s), Oral, BID, PRN bladder spasm, Refills(s) 0 Start Date: 09/29/22 Status: Ordered triamcinolone acetonide 5 mg/ml topical cream (7 sources)CorticosteroidStart: 82-54-5905yuvbbfkcembap (Kenalog) 0.5 % cream Indications: Eczema, unspecified type Apply topically in the morning and before bedtime. 45 g 1 03/06/2025 ActiveStart: 01-12-2025 End: 77-88-9916kvmtqilvjjqvr acetonide (Kenalog-40) injection 40 mgStart: 01-12-2025 End: 64-31-3976vdlxsa 40 mg by intramuscular injection once40 mg, Intramuscular, Once, On Delicia 01/12/25 at 1445, For 1 doseStart: 01-12-2025 End: 14-68-0238frbixnhmejdla acetonide (Kenalog-40) injection 40 mgStart: 01-12-2025 End: 77-98-1675yhvtqr 40 mg by intramuscular injection once40 mg, Intramuscular, Once, On Delicia 01/12/25 at 1445, For 1 dose Completed/Discontinued Medications MedicationDrug Class(es)DatesSig (Normalized)Sig (Original)furosemide 20 mg oral tablet (20 sources)Loop DiureticStart: 12-10-2023 End: 53-29-2890rlwj 1 tablet by mouth once dailyfurosemide (Lasix) 20 MG tablet Indications: Localized edema Take 1 tablet (20 mg) by mouth Daily for 7 days 7 tablet 12/10/2023 05/16/2024 DiscontinuedhydroCHLOROthiazide 12.5 mg / losartan potassium 50 mg oral tablet (20 sources)Thiazide Diuretic, Angiotensin 2 Receptor BlockerStart: 07-18-2024 End: 80-15-2524dwlz 1 tablet by mouth once dailylosartan-hydroCHLOROthiazide (Hyzaar) 50-12.5 MG tablet Indications: Primary hypertension Take 1 tablet by mouth Daily 07/18/2024 02/13/2025 DiscontinuedStart: 54-48-6258apte 1 tablet by mouth in the morninglosartan-hydroCHLOROthiazide (Hyzaar) 50-12.5 MG tablet Take 1 tablet by mouth in the morning. 0 09/01/2022 ActiveStart: 28-88-4995lfla 1 tablet by mouth once dailyhydrochlorothiazide-losartan 12.5 mg-50 mg Tab 1 tab(s), Oral, Daily, Refill(s) 0 Start Date: 10/01/22 Status: Ordered hydrocortisone valerate 2 mg/ml topical cream (1 source)CorticosteroidStart: 03-03-2025 End: 55-97-9888jbgbosahosetow ([place]) 0.2 % cream Indications: Eczema, unspecified type Apply topically in themorning and before bedtime. 45 g 1 03/03/2025 03/06/2025 Discontinued Problems Active Problems Problem ClassificationProblemDateDocumented DateEpisodic/ChronicAcute myocardial infarction (20 sources)Myocardial infarction; Translations: [ST elevation (STEMI) myocardial infarction involving other coronary artery of inferior wall]Onset: 209705-74-5395FgtfsjmNmmsympkqobpfb/social admission (4 sources)Patient encounter status; Translations: [Other specified counseling] 31-81-5564EufsgffcGigaxqdw reactions (2 sources)Atopic dermatitis; Translations: [Atopic dermatitis, unspecified] 01-59-3401RdfttekXgsaokyd reactions (1 source)Eczema; Translations: [Dermatitis, unspecified]56-31-9520Zzlagwex Cardiac dysrhythmias (2 sources)Supraventricular tachycardia; Translations: [Paroxysmal supraventricular tachycardia]Onset: 74-77-8367UrvzmqxMpgqccpf (20 sources)Bilateral age-related nuclear cataracts; Translations: [Age-related nuclear cataract, bilateral]Onset: 487480-36-8066NdkzbrmLcxnwqtp atherosclerosis and other heart disease (20 sources)Coronary arteriosclerosis; Translations: [Atherosclerotic heart disease of [place] coronary artery without angina pectoris]Onset: 08-19-2022 01-35-6643EvxbnzxWwxbsdgw mellitus with complications (20 sources)Type 2 diabetes mellitus with diabetic mononeuropathy; Translations: [Diabetic peripheral neuropathy]Onset: 938452-68-4476QitnmgxZanndzug mellitus without complication (20 sources)Diabetes mellitus; Translations: [Type 2 diabetes mellitus without complications]Onset: 10-02-2022 Resolved: 688961-41-4506TvjwakeWujklwrsv of lipid metabolism (20 sources)Hypercholesterolemia; Translations: [Mixed hyperlipidemia]Onset: 977249-48-1942SwfcwhzTjysgnotzf disorders (20 sources)Gastroesophageal reflux disease; Translations: [Gastro-esophageal reflux disease without esophagitis]Onset: 02-76-939937610060-73-6768AkybnakUdfvdofif hypertension (20 sources)Hypertensive disorder; Translations: [Essential (primary) hypertension]Onset: 122296-33-3223FuognhwDhbosjxawqe of prostate (20 sources)Benign prostatic hypertrophy with outflow obstruction; Translations: [Benign prostatic hyperplasia with lower urinary tract symptoms]Onset: 714397-22-3750CwragtnPkzebiltsllt with complications and secondary hypertension (1 source)Hypertensive urgency; Translations: [HYPERTENSIVE URGENCY]Onset: 92-50-4463HruestbNkrhwsm and fatigue (2 sources)Fatigue; Translations: [Chronic fatigue, unspecified]10-17-2024 ChronicNonspecific chest pain (4 sources)Other chest pain; Translations: [OTHER CHEST PAIN]Onset: 08-17-2022 EpisodicOcclusion or stenosis of precerebral arteries (13 sources)Occlusion and stenosis of multiple and bilateral cerebral arteries; Translations: [Occlusion and stenosis of bilateral carotid arteries]Onset: 11-12-2021 Resolved: 17-73-7151XvvrixeZssaxzgffvdesg (20 sources)Arthritis of left hip; Translations: [Unilateral primary osteoarthritis, left hip]Onset: 701881-90-3949RqurhutPyhyr aftercare (1 source)prison (current) use of aspirin; Translations: [SKILLED NURSING CURRENT USE OF ASPIRIN]Onset: 05-19-4832BearrtcpLxcww aftercare (1 source)prison (current) use of oral hypoglycemic drugs; Translations: [SKILLED NURSING USE ORAL HYPOGLYCEMIC DX]Onset: 32-11-2581LzkpmaamGxcpi aftercare (1 source)Other religion department chair (current) drug therapy; Translations: [OTH PUMPER BREWERY CURRENT DRUG THERAPY]Onset: 27-39-5725FwbcttvkVsztq circulatory disease (20 sources)Disorder of carotid artery; Translations: [Disorder of arteries and arterioles, unspecified]Onset: 965347-15-0041ImhslveKitwn diseases of bladder and urethra (1 source)Overactive bladder; Translations: [OVERACTIVE BLADDER]Onset: 87-63-4290KtzmvhuJvxgt diseases of bladder and urethra (20 sources)Overactive bladder; Translations: [Overactive bladder]Onset: 617295-37-1299VcnwpveYsere ear and sense organ disorders (2 sources)Impacted cerumen of bilateral ears; Translations: [Impacted cerumen, bilateral]72-80-9553TyeknawoXnxab ear and sense organ disorders (2 sources)Cerebrospinal fluid otorrhea; Translations: [CSF otorrhea]02-21-2025 EpisodicOther nervous system disorders (20 sources)Neuropathy; Translations: [Polyneuropathy, unspecified]Onset: 995005-33-9987SrolyzoBpwxk nervous system disorders (1 source)Peripheral nerve disease ; Translations: [Unspecified hereditary and idiopathic peripheral neuropathy]ChronicOther nutritional; endocrine; and metabolic disorders (20 sources)Body mass index 30+ - obesity; Translations: [Body mass index (BMI) 33.0-33.9, adult]Onset: 007322-51-1366DnixzumOuvfi nutritional; endocrine; and metabolic disorders (4 sources)Obesity, unspecified; Translations: [OBESITY UNSPECIFIED]Onset: 77-85-6783AsbjejvUrpxe nutritional; endocrine; and metabolic disorders (20 sources)Obese class I; Translations: [Body mass index (BMI) 33.0-33.9, adult]Onset: 29-21-9674JfmqjpwXvwst nutritional; endocrine; and metabolic disorders (20 sources)Obesity; Translations: [Obesity, unspecified]Onset: 01-17-2023 87-13-9507JrlqqigOucfp skin disorders (2 sources)Folliculitis; Translations: [Follicular disorder, unspecified] 10-18-2622XetrrqvzScauu upper respiratory disease (4 sources)Allergic rhinitis; Translations: [Allergic rhinitis, unspecified] 89-43-6350DawjwkcBalao upper respiratory disease (2 sources)Nasal congestion; Translations: [Nasal congestion]50-84-4038Cjetfdqz Other upper respiratory disease (2 sources)Bleeding from nose; Translations: [Epistaxis]49-03-5961JwrojltzRyhitv media and related conditions (11 sources)Dysfunction of right eustachian tube; Translations: [Unspecified Eustachian tube disorder, right ear]58-88-8260RksphdmqJycagnsuqdp; intervertebral disc disorders; other back problems (20 sources)Degeneration of lumbar intervertebral disc; Translations: [Degenerative disc disease, lumbar]Onset: 485715-71-1205UfjkmwnUzqsogtsq cerebral ischemia (1 source)Amaurosis fugax of right eye; Translations: [Amaurosis fugax]Chronic Unclassified (5 sources)Irreducible left inguinal -81-9665Kttwluujtvuz (4 sources)COUGH, UNSPECIFIED; Translations: [COUGH, UNSPECIFIED]Onset: 64-60-7755Jdkxvhntkgxt (3 sources)CONTACT W/AND (SUSP) EXPOS COVID-19; Translations: [CONTACT W/AND (SUSP) EXPOS COVID-19]Onset: 26-95-5097Tbhsice tract infections (2 sources)Acute cystitis; Translations: [Acute cystitis with hematuria] 07-29-4680HmdyihcgNdxzq infection (1 source)COVID-19; Translations: [COVID-19]Onset: 07-22-2022 Past or Other Problems Problem ClassificationProblemDateDocumented DateEpisodic/ChronicAbdominal hernia (20 sources)Obstructed inguinal hernia; Translations: [Unilateral inguinal hernia, with obstruction, without gangrene, not specified as recurrent]Onset: 19-35-0001MiqcyhavXtmdmkuhswroz symptoms and ill-defined conditions (20 sources)Delay when starting to pass urine; Translations: [[place] hematuria] Onset: 487573-22-7717FodhefjmNrlpe valve disorders (20 sources)Heart murmur; Translations: [Cardiac murmur, unspecified]Onset: 306010-28-2929CmfztndsZwxmk diseases of bladder and urethra (20 sources)Urethral stricture; Translations: [Unspecified urethral stricture, male, unspecified site]Onset: 444615-93-4903HbgrtqslHhazf screening for suspected conditions (not mental disorders or infectious disease) (20 sources)Raised prostate specific antigen; Translations: [Elevated prostate specific antigen [PSA]]Onset: 714464-12-7055PcbmufefGycdz upper respiratory disease (20 sources)Other specified disorders of nose and nasal sinuses; Translations: [Other disease of nasal cavity and sinuses]Onset: 465265-44-9366Uzsxymcw Other upper respiratory infections (20 sources)Acute pharyngitis, unspecified; Translations: [Acute maxillary sinusitis]Onset: 204114-74-5773KntyrouxKmlmrytvisn; intervertebral disc disorders; other back problems (20 sources)Sciatica; Translations: [Sciatica, right side]Onset: 12-22-2022 97-23-6966EwlzivugXizwgfwlwncc (1 source)COUGH, UNSPECIFIED; Translations: [COUGH, UNSPECIFIED]Onset: 02-95-7006Enicwmvfdvet (1 source)CONTACT W/AND (SUSP) EXPOS COVID-19; Translations: [CONTACT W/AND (SUSP) EXPOS COVID-19]Onset: 90-36-5940Ptkxipxnuosy (1 source)Never smoked tobacco; Translations: [Never a smoker]Viral infection (20 sources)Plantar wart of left foot; Translations: [Plantar wart]Onset: 533730-47-3411Ctksirzj Results Test NameValueInterpretationReference RangeFacilityCT Posterior fossa WO contraston [id number], [place] [address] [place] Scan Report Signed Patient: FRANKIE DE ANDA MR#: [id number] : 1950 Acct:[id number] Age/Sex: 74 / M ADM Date: 03/10/25 Loc: CT Attending Dr: Antwon Estrada M.D. Ordering Physician: Antwon Estrada M.D. Date of Service: 03/10/25 Procedure(s): CT int auditory canals w/o con Accession Number(s): [id number] cc: WESTON BORJA [place] [id number] Patient Name: FRANKIE DE ANDA MRN: [id number] date: 1950 Sex: M Assigned Patient Location: CT Current Patient Location: CT Accession/Order Number: [id number] Exam Date: 03/10/2025 14:30 Report Date: 03/10/2025 17:08 At the request of: ANTWON ESTRADA MD Procedure: CT int auditory canals w/o con CT int auditory canals wo/w 03/10/2025 2:49 PM SIGNS AND SYMPTOMS: Chronic Dysfunction Of Right Eustachian Tube, hearing loss, tinnitus COMPARISON: None. TECHNIQUE: Using a multi-detector scanner, 0.5 x 0.3 mm axial scans of the temporal bone were acquired using a high-resolution bone technique. The scans were retrospectively targeted for right and left side, and subsequently reconstructed in the coronal and Sagittal plane, again targeting the right and left sides individually, as well as the entire skull base. CT was performed with one or more of the following dose reduction techniques: Automated exposure control, adjustment of the mA and/or kV according to patient size, or use of iterative reconstruction technique. FINDINGS: Right: There is soft tissue/fluid attenuation occupying the mesotympanum and hypotympanum including Prussak's space. There is slight blunting of the scutum presumed secondary to demineralization. There is also subtle demineralization of the incus and stapes. This may represent a cholesteatoma. The cochlea, vestibule, vestibular and cochlear aqueduct are within normal limits. The facial nerve canal is within normal limits. The semicircular canals are within normal limits. The internal auditory canal is within normal limits. The external auditory canal is within normal limits. There is a right mastoid effusion. The carotid canal and jugular foramen are within normal limits. The temporomandibular joint is within normal limits. Left: The middle ear cleft is within normal limits and the ossicles are within normal limits. The cochlea, vestibule, vestibular and cochlear aqueduct are within normal limits. The facial nerve canal is within normal limits. The semicircular canals are within normal limits.. The internal auditory canal is within normal limits.. The external auditory canal and mastoid air cells are within normal limits. The carotid canal and jugular foramen are within normal limits. The temporomandibular joint is intact. Paranasal sinuses: There is mucosal thickening partially opacifying the ethmoid air cells and mucosal thickening is also noted in the maxillary sinuses. CT/CT int auditory canals w/o con IMPRESSION: There is soft tissue/fluid attenuation occupying the mesotympanum and hypotympanum on the right including Prussak's space. There is slight blunting of the scutum presumed secondary to demineralization. There is also subtle demineralization of the incus and stapes. This may represent a cholesteatoma. The temporal bone structures are within normal limits. Impression dictated by: Gerry Hartman M.D. 03/10/2025 5:08 PM Dictation Location: [place] [address] Electronically authenticated by: [id number] Y Date: 03/10/2025 17:08 Dictated By: Gerry Hartman M.D. Signed By: 03/23/25 1354 DD/ 6816 TD/TT: Solution Manager:TBHRadiology, Radiologist, - 03/23/2025 [place] [address] CT Scan Report Signed Patient: FRANKIE DE ANDA MR#: [id number] : 1950 Acct:[id number] Age/Sex: 74 / M ADM Date: 03/10/25 Loc: CT Attending Dr: Antwon Estrada M.D. Ordering Physician: nAtwon Estrada M.D. Date of Service: 03/10/25 Procedure(s): CT int auditory canals w/o con Accession Number(s): [id number] cc: WESTON BORJA [place] [id number] Patient Name: FRANKIE DE ANDA MRN: [id number] date: 1950 Sex: M Assigned Patient Location: CT Current Patient Location: CT Accession/Order Number: [id number] Exam Date: 03/10/2025 14:30 Report Date: 03/10/2025 17:08 At the request of: ANTWON ESTRADA MD Procedure: CT int auditory canals w/o con CT int auditory canals wo/w 03/10/2025 2:49 PM SIGNS AND SYMPTOMS: Chronic Dysfunction Of Right Eustachian Tube, hearing loss, tinnitus COMPARISON: None. TECHNIQUE: Using a multi-detector scanner, 0.5 x 0.3 mm axial scans of the temporal bone were acquired using a high-resolution bone technique. The scans were retrospectively targeted for right and left side, and subsequently reconstructed in the coronal and Sagittal plane, again targeting the right and left sides individually, as well as the entire skull base. CT was performed with one or more of the following dose reduction techniques: Automated exposure control, adjustment of the mA and/or kV according to patient size, or use of iterative reconstruction technique. FINDINGS: Right: There is soft tissue/fluid attenuation occupying the mesotympanum and hypotympanum including Prussak's space. There is slight blunting of the scutum presumed secondary to demineralization. There is also subtle demineralization of the incus and stapes. This may represent a cholesteatoma. The cochlea, vestibule, vestibular and cochlear aqueduct are within normal limits. The facial nerve canal is within normal limits. The semicircular canals are within normal limits. The internal auditory canal is within normal limits. The external auditory canal is within normal limits. There is a right mastoid effusion. The carotid canal and jugular foramen are within normal limits. The temporomandibular joint is within normal limits. Left: The middle ear cleft is within normal limits and the ossicles are within normal limits. The cochlea, vestibule, vestibular and cochlear aqueduct are within normal limits. The facial nerve canal is within normal limits. The semicircular canals are within normal limits.. The internal auditory canal is within normal limits.. The external auditory canal and mastoid air cells are within normal limits. The carotid canal and jugular foramen are within normal limits. The temporomandibular joint is intact. Paranasal sinuses: There is mucosal thickening partially opacifying the ethmoid air cells and mucosal thickening is also noted in the maxillary sinuses. CT/CT int auditory canals w/o con IMPRESSION: There is soft tissue/fluid attenuation occupying the mesotympanum and hypotympanum on the right including Prussak's space. There is slight blunting of the scutum presumed secondary to demineralization. There is also subtle demineralization of the incus and stapes. This may represent a cholesteatoma. The temporal bone structures are within normal limits. Impression dictated by: Gerry Hartman M.D. 03/10/2025 5:08 PM Dictation Location: [place] [address] Electronically authenticated by: [id number] Y Date: 03/10/2025 17:08 Dictated By: Gerry Hartman M.D. Signed By: 03/23/25 1351 DD/ 1708 TD/TT: Solution Manager: KEIRA Whitney Posterior fossa WO contrastOrdered By: Radiologist Radiology on [id number] [employer] Work Phone: ct Internal auditory canal WO and W contrast Cong [id number] [address] CT Scan Report Signed Patient: FRANKIE DE ANDA MR#: [id number] : 1950 Acct:[id number] Age/Sex: 74 / M ADM Date: 03/10/25 Loc: CT Attending Dr: Antwon Estrada M.D. Ordering Physician: Antwon Estrada M.D. Date of Service: 03/10/25 Procedure(s): CT int auditory canals wo/w Accession Number(s): [id number] cc: WESTON BORJA [place] [address] Patient Name: FRANKIE DE ANDA MRN: [id number] date: 1950 Sex: M Assigned Patient Location: CT Current Patient Location: CT Accession/Order Number: [id number] Exam Date: 03/10/2025 14:46 Report Date: 03/10/2025 17:08 At the request of: ANTWON ESTRADA MD Procedure: CT int auditory canals wo/w CT int auditory canals wo/w 03/10/2025 2:49 PM SIGNS AND SYMPTOMS: Chronic Dysfunction Of Right Eustachian Tube, hearing loss, tinnitus COMPARISON: None. TECHNIQUE: Using a multi-detector scanner, 0.5 x 0.3 mm axial scans of the temporal bone were acquired using a high-resolution bone technique. The scans were retrospectively targeted for right and left side, and subsequently reconstructed in the coronal and Sagittal plane, again targeting the right and left sides individually, as well as the entire skull base. CT was performed with one or more of the following dose reduction techniques: Automated exposure control, adjustment of the mA and/or kV according to patient size, or use of iterative reconstruction technique. FINDINGS: Right: There is soft tissue/fluid attenuation occupying the mesotympanum and hypotympanum including Prussak's space. There is slight blunting of the scutum presumed secondary to demineralization. There is also subtle demineralization of the incus and stapes. This may represent a cholesteatoma. The cochlea, vestibule, vestibular and cochlear aqueduct are within normal limits. The facial nerve canal is within normal limits. The semicircular canals are within normal limits. The internal auditory canal is within normal limits. The external auditory canal is within normal limits. There is a right mastoid effusion. The carotid canal and jugular foramen are within normal limits. The temporomandibular joint is within normal limits. Left: The middle ear cleft is within normal limits and the ossicles are within normal limits. The cochlea, vestibule, vestibular and cochlear aqueduct are within normal limits. The facial nerve canal is within normal limits. The semicircular canals are within normal limits.. The internal auditory canal is within normal limits.. The external auditory canal and mastoid air cells are within normal limits. The carotid canal and jugular foramen are within normal limits. The temporomandibular joint is intact. Paranasal sinuses: There is mucosal thickening partially opacifying the ethmoid air cells and mucosal thickening is also noted in the maxillary sinuses. CT/CT int auditory canals wo/w IMPRESSION: There is soft tissue/fluid attenuation occupying the mesotympanum and hypotympanum on the right including Prussak's space. There is slight blunting of the scutum presumed secondary to demineralization. There is also subtle demineralization of the incus and stapes. This may represent a cholesteatoma. The temporal bone structures are within normal limits. Impression dictated by: Gerry Hartman M.D. 03/10/2025 5:08 PM Dictation Location: [place] [address] Electronically authenticated by: [id number] Y Date: 03/10/2025 17:08 Dictated By: Gerry Hartman M.D. Signed By: 03/10/25 1711 DD/ 170 TD/TT: Solution Manager:VIJIHRadiology, Radiologist, - 03/13/2025 [place] [address] CT Scan Report Signed Patient: FRANKIE DE ANDA MR#: [id number] : 1950 Acct:[id number] Age/Sex: 74 / M ADM Date: 03/10/25 Loc: CT Attending Dr: Antwon Estrada M.D. Ordering Physician: Antwon Estrada M.D. Date of Service: 03/10/25 Procedure(s): CT int auditory canals wo/w Accession Number(s): [id number] cc: WESTON BORJA [place] [address] Patient Name: FRANKIE DE ANDA MRN: [id number] date: 1950 Sex: M Assigned Patient Location: CT Current Patient Location: CT Accession/Order Number: [id number] Exam Date: 03/10/2025 14:46 Report Date: 03/10/2025 17:08 At the request of: ANTWON ESTRADA MD Procedure: CT int auditory canals wo/w CT int auditory canals wo/w 03/10/2025 2:49 PM SIGNS AND SYMPTOMS: Chronic Dysfunction Of Right Eustachian Tube, hearing loss, tinnitus COMPARISON: None. TECHNIQUE: Using a multi-detector scanner, 0.5 x 0.3 mm axial scans of the temporal bone were acquired using a high-resolution bone technique. The scans were retrospectively targeted for right and left side, and subsequently reconstructed in the coronal and Sagittal plane, again targeting the right and left sides individually, as well as the entire skull base. CT was performed with one or more of the following dose reduction techniques: Automated exposure control, adjustment of the mA and/or kV according to patient size, or use of iterative reconstruction technique. FINDINGS: Right: There is soft tissue/fluid attenuation occupying the mesotympanum and hypotympanum including Prussak's space. There is slight blunting of the scutum presumed secondary to demineralization. There is also subtle demineralization of the incus and stapes. This may represent a cholesteatoma. The cochlea, vestibule, vestibular and cochlear aqueduct are within normal limits. The facial nerve canal is within normal limits. The semicircular canals are within normal limits. The internal auditory canal is within normal limits. The external auditory canal is within normal limits. There is a right mastoid effusion. The carotid canal and jugular foramen are within normal limits. The temporomandibular joint is within normal limits. Left: The middle ear cleft is within normal limits and the ossicles are within normal limits. The cochlea, vestibule, vestibular and cochlear aqueduct are within normal limits. The facial nerve canal is within normal limits. The semicircular canals are within normal limits.. The internal auditory canal is within normal limits.. The external auditory canal and mastoid air cells are within normal limits. The carotid canal and jugular foramen are within normal limits. The temporomandibular joint is intact. Paranasal sinuses: There is mucosal thickening partially opacifying the ethmoid air cells and mucosal thickening is also noted in the maxillary sinuses. CT/CT int auditory canals wo/w IMPRESSION: There is soft tissue/fluid attenuation occupying the mesotympanum and hypotympanum on the right including Prussak's space. There is slight blunting of the scutum presumed secondary to demineralization. There is also subtle demineralization of the incus and stapes. This may represent a cholesteatoma. The temporal bone structures are within normal limits. Impression dictated by: Gerry Hartman M.D. 03/10/2025 5:08 PM Dictation Location: [place] [address] Electronically authenticated by: [id number] Y Date: 03/10/2025 17:08 Dictated By: Gerry Hartman M.D. Signed By: 03/10/251710 DD/ 07 TD/TT: Solution Manager: KEIRA LandonCT Internal auditory canal WO and W contrast IVOrdered By: Radiologist Radiology on 30-56-1120[facility] Work Phone: No Panel Informationon [id number] Study observation (narrative)[facility] HealthcareLaboratory - Hematology and Cell countson 23-91-3376TtS6c (Bld) [Mass fraction]6.6 %[facility] HealthcareNo Panel Informationon 43-14-6770YCNC HealthcareCORTISOL, TOTALon 51-58-3947PGXFSLWV, TOTAL20.4 mcg/dL NormalQuest DiagnosticsComment on above:Result Comment: Reference Range: For 8 a.m.(7-9 a.m.) Specimen: 4.0-22.0 Reference Range: For 4 p.m.(3-5 p.m.) Specimen: 3.0-17.0 * Please interpret above results accordingly *Performed By: #### 866, 67333, 899, 367 #### [facility] [address], [address] [place], [place] [address] Excel Expert: Sagar Pathak MD #### [id number] #### [facility]/[address] [place], [place] Excel Expert: Shan Ashby M.D.,PhDT3, [facility] 55-03-5560Oqyt T3 [Mass/Vol]3.1 pg/mLNormal2.3-4.2Quest DiagnosticsComment on above:Performed By: #### 866, 62468, 899, 367 #### [facility] [place] [id number] Excel Expert: Sagar Pathak MD #### [id number] #### [facility]/[address] [place], [place] Excel Expert: Shan Ashby M.D.,PhDT4, [facility] 63-53-1245Nlmv T4 [Mass/Vol]1.0 ng/dLNormal0.8-1.8Quest DiagnosticsComment on above:Performed By: #### 866, 43706, 899, 367 #### [facility] [place] [phone] Excel Expert: Sagar Pathak MD #### [id number] #### [facility]/[address] [place], [place] Excel Expert: Shan Ashby M.D.,PhDTESTOSTERONE, FREE (DIALYSIS) AND TOTAL,MSon 31-62-3182KCXTGTKDMJCH, FREE52.1 pg/uJOphxcj26.0-135.0Quest DiagnosticsComment on above:Result Comment: This test was developed and its analytical performance characteristics have been determined by [facility] [place], [place]. It has not been cleared or approved by the U.S. Food and Drug Administration. This assay has been validated pursuant to the CLIA regulations and is used for clinical purposes.Performed By: #### 866, 05721, 899, 367 #### [facility] [address], [address] [place] [address] Excel Expert: Sagar Pathak MD #### 67255 #### [facility] [address] [place], [place] Excel Expert: Shan Ashby M.D.,PhDTESTOSTERONE, TOTAL, MS352 ng/dLNormal 250-1100Quest DiagnosticsComment on above:Result Comment: Men with clinically significant hypogonadal symptoms and testosterone values repeatedly in the range of the 200-300 ng/dL or less, may benefit from testosterone treatment after adequate risk and benefits counseling. For additional information, please refer to http://education.SumAll/faq/ JoaipUnntlfebqmqkVLNVWFQTX322 (This link is being provided for informational/ educational purposes only.) This test was developed and its analytical performance characteristics have been determined by [facility] [place], [place]. It has not been cleared or approved by the U.S. Food and Drug Administration. This assay has been validated pursuant to the CLIA regulations and is used for clinical purposes.Performed By: #### 866, 28278, 899, 367 #### [facility] [address], [address] [place] [address] Excel Expert: Sagar Pathak MD #### [id number] #### [facility] [address] [place], [place] Excel Expert: Shan Ashby M.D.,PhDTSHon 00-21-7249HBL Qn1.20 m[IU]/L Normal0.40-4.50Quest DiagnosticsComment on above:Performed By: #### 866, 36990, 899, 367 #### [facility] of [address], [address] [place] [address] Excel Expert: Sagar Pathak MD #### 90810 #### [facility] [address] [facility] [place] [address] Excel Expert: Shan Ashby M.D.,PhDLaboratory - Hematology and Cell countson 64-70-2403IgF4x (Bld) [Mass fraction]6.3 %[facility] HealthcareNo Panel Informationon 79-17-6106KLOY HealthcareCBC (INCLUDES DIFF/PLT)on 07-01-2024 Basophils (Bld) [#/Vol]0.048 10*3/uLNormal0-200Quest DiagnosticsComment on above:Performed By: #### 6399, 93252, 39720, 7600 #### [facility] of [address], [address] [place] [address] Excel Expert: Sagar Pathak MDBasophils/100 WBC (Bld)0.7 %NormalQuest DiagnosticsComment on above:Performed By: #### 6399, 57294, 09594, 7600 #### [facility] of [address], [address] [place] [address] Excel Expert: Sagar Pathak MDEosinophils (Bld) [#/Vol]0.476 10*3/uLNormal 15-500Quest DiagnosticsComment on above:Performed By: #### 6399, 98858, 74487, 7600 #### [facility] of [place] [address] [address] , [address] [place] [address] Excel Expert: Sagar Pathak MDEosinophils/100 WBC (Bld)6.9 %NormalQuest DiagnosticsComment on above:Performed By: #### 6399, 23815, 90370, 7600 #### [facility] of [address], [address] [place] [address] Excel Expert: Sagar Merati MDErythrocyte distribution width (RBC) [Ratio] 14.4 %Imasef24.0-15.0Quest DiagnosticsComment on above:Performed By: #### 6399, 57164, 08839, 7600 #### [facility] of [place] [address] Excel Expert: Sagar Pathak MDHematocrit (Bld) [Volume fraction]46.6 %Normal 38.5-50.0Quest DiagnosticsComment on above:Performed By: #### 6399, 23370, 02530, 7600 #### [facility] of [place] [address] Excel Expert: Sagar Pathak MDHemoglobin (Bld) [Mass/Vol]15.0 g/dLNormal 13.2-17.1Quest DiagnosticsComment on above:Performed By: #### 6399, , 66614, 7600 #### [facility] of [address], [address] [place] [address] Excel Expert: Sagar Pathak MDLymphocytes (Bld) [#/Vol]2.215 10*3/uLNormal 850-3900Quest DiagnosticsComment on above:Performed By: #### 6399, , 21448, 7600 #### [facility] of [place] [address] Excel Expert: Sagar Pathak MDLymphocytes/100 WBC (Bld)32.1 %NormalQuest DiagnosticsComment on above:Performed By: #### 6399, 99469, 57848, 7600 #### [facility] of [place] [address] Excel Expert: Sagar Pathak MDMCH (RBC) [Entitic mass]27.6 ovVnmfps36.0-33.0 Quest DiagnosticsComment on above:Performed By: #### 6399, , 79084, 7600 #### [facility] of [address], [address] [place] [address] Excel Expert: Sagar Pathak MDMCHC (RBC) [Mass/Vol]32.2 g/gAAhrexc03.0-36.0 [facility] DiagnosticsComment on above:Result Comment: For adults, a slight decrease in the calculated MCHC value (in the range of 30 to 32 g/dL) is most likely not clinically significant; however, it should be interpreted with caution in correlation with other red cell parameters and the patient's clinical condition.Performed By: #### 6399, 14890, 38624, 7600 #### [facility] of [place] [address], [address] [place] [address] Excel Expert: Sagar Pathak MDMCV (RBC) [Entitic vol]85.8 lLQxpmsc91.0-100.0 Quest DiagnosticsComment on above:Performed By: #### 6399, , , 7600 #### [facility] of [place] [address] [address] , [address] [place] [address] Excel Expert: Sagar Pathak MDMonocytes (Bld) [#/Vol]0.518 10*3/uLNormal 200-950Quest DiagnosticsComment on above:Performed By: #### 6399, 04601, 76695, 7600 #### [facility] of [place] [address] [address] , [address] [place] [address] Excel Expert: Sagar Pathak MDMonocytes/100 WBC (Bld)7.5 %NormalQuest DiagnosticsComment on above:Performed By: #### 6399, , 96081, 7600 #### [facility] of [place] [address], [address] [place] [address] Excel Expert: Sagar Pathak MDNeutrophils (Bld) [#/Vol]3.643 10*3/uLNormal 1500-7800Quest DiagnosticsComment on above:Performed By: #### 6399, , 04663, 7600 #### [facility] of [address], [address] [place] [address] Excel Expert: Sagar Pathak MDNeutrophils/100 WBC (Bld)52.8 %NormalQuest DiagnosticsComment on above:Performed By: #### 6399, 27069, 70944, 7600 #### [facility] of [address], [address] [place] [address] Excel Expert: Sagar Pathak MDPlatebrandon mean volume (Bld) [Entitic vol]9.8 fL Normal7.5-12.5Quest DiagnosticsComment on above:Performed By: #### 6399, 37784, 54760, 7600 #### [facility] of [address], [address] [place] [address] Excel Expert: Sagar Pathak MDPlatelets (Bld) [#/Vol]209 10*3/uLNormal 140-400Quest DiagnosticsComment on above:Performed By: #### 6399, 81197, , 7600 #### [facility] of [address], [address] [place] [address] Excel Expert: Sagar Pathak MDRBC (Bld) [#/Vol]5.43 10*6/uLNormal4.20-5.80 [facility] DiagnosticsComment on above:Performed By: #### 6399, 82314, 64778, 7600 #### [facility] of [address], [address] [place] [address] Excel Expert: Sagar Pathak MDWBC (Bld) [#/Vol]6.9 10*3/uLNormal3.8-10.8 [facility] DiagnosticsComment on above:Performed By: #### 6399, 94464, 78985, 7600 #### [facility] of [place] [address] Excel Expert: Sagar Pathak MDCOMPREHENSIVE METABOLIC PANELon 07-01-2024 Albumin [Mass/Vol]4.1 g/dLNormal3.6-5.1Quest DiagnosticsComment on above: Performed By: #### 6399, 03763, 97728, 7600 #### [facility] of [address], [address] [place] [address] Excel Expert: Sagar Pathak MDAlbumin/Globulin [Mass ratio]1.4 {ratio}Normal 1.0-2.5Quest DiagnosticsComment on above:Performed By: #### 6399, 59227, 04501, 7600 #### [facility] of [address], [address] [place] [address] Excel Expert: Sagar Pathak MDALP [Catalytic activity/Vol]68 U/OJncerp48-952 [facility] DiagnosticsComment on above:Performed By: #### 6399, 55637, 63861, 7600 #### [facility] of [address], [address] [place] [address] Excel Expert: Sagar Pathak MDALT [Catalytic activity/Vol]17 U/LNormal9-46 [facility] DiagnosticsComment on above:Performed By: #### 6399, 39094, 84255, 7600 #### [facility] of [address], [address] [place] [address] Excel Expert: Sagar Pathak MDAST [Catalytic activity/Vol]18 U/KWfhpgv56-38 [facility] DiagnosticsComment on above:Performed By: #### 6399, 16731, 81659, 7600 #### [facility] of [address], [address] [place] [address] Excel Expert: Sagar Pathak MDBilirubin [Mass/Vol]1.0 mg/dLNormal0.2-1.2 [facility] DiagnosticsComment on above:Performed By: #### 6399, 16486, 62925, 7600 #### [facility] of [place] [address] Excel Expert: Sgaar Pathak MDBUN/CREATININE RATIOSEE NOTE:Normal6-22Quest DiagnosticsComment on above:Result Comment: Not Reported: BUN and Creatinine are within reference range.Performed By: #### 6399, 31674, 10646, 7600 #### [facility] of [address], [address] [place] [address] Excel Expert: Sagar LOPEZalcium [Mass/Vol]9.1 mg/dLNormal8.6-10.3Quest DiagnosticsComment on above:Performed By: #### 6399, 56199, 20059, 7600 #### [facility] [facility] [address], [address] [place] [address] Excel Expert: Sagar Pathak MDChloride [Moles/Vol]105 mmol/AJndita49-340 Quest DiagnosticsComment on above:Performed By: #### 6399, 64517, 85061, 7600 #### [facility] [place] [address] Excel Expert: Sagar Pathak MDCO2 [Moles/Vol]25 mmol/VFdudmt66-71Sjscj DiagnosticsComment on above:Performed By: #### 6399, 26208, 02853, 7600 #### [facility] [place] [address] Excel Expert: Sagar LOPEZreatinine [Mass/Vol]0.84 mg/dLNormal0.70-1.28 [facility] DiagnosticsComment on above:Performed By: #### 6399, 58328, 34435, 7600 #### [facility] [place] [address] Excel Expert: Sagar Pathak MDGFR/1.73 sq M.predicted among non-blacks MDRD (S/P/Bld) [Vol rate/Area]91 mL/min/{1.73_m2}Normal> OR = 60[facility] Comment on above:Performed By: #### 6399, 32997, 92225, 7600 #### [facility] [address], [address] [place] [address] Excel Expert: Sagar Pathak MDGlobulin (S) [Mass/Vol]2.9 g/dLNormal1.9-3.7 [facility] DiagnosticsComment on above:Performed By: #### 6399, 10679, 33490, 7600 #### [facility] [place] [address] Excel Expert: Sagar Pathak MDGlucose [Mass/Vol]119 mg/qRJvvs74-69Hkrat DiagnosticsComment on above:Result Comment: Fasting reference interval For someone without known diabetes, a glucose value between 100 and 125 mg/dL is consistent with prediabetes and should be confirmed with a follow-up test.Performed By: #### 6399, 41230, 68101, 7600 #### [facility] [place] [address] Excel Expert: Sagar Pathak MDPotassium [Moles/Vol]4.4 mmol/LNormal3.5-5.3 [facility] DiagnosticsComment on above:Performed By: #### 6399, , 22580, 7600 #### [facility] [place] [address] Excel Expert: Sagar Pathak MDProtein [Mass/Vol]7.0 g/dLNormal6.1-8.1Quest DiagnosticsComment on above:Performed By: #### 6399, 08470, 99607, 7600 #### [facility] [place] [address] Excel Expert: Sagar Pathak MDSodium [Moles/Vol]139 mmol/HIojngz119-059Rfhku DiagnosticsComment on above:Performed By: #### 6399, 70164, 49802, 7600 #### [facility] [place] [address] Excel Expert: Sagar Pathak MDUrea nitrogen [Mass/Vol]16 mg/dLNormal7-25 [facility] DiagnosticsComment on above:Performed By: #### 6399, 47071, 05300, 7600 #### [facility] [place] [address] Excel Expert: Sagar Pathak MDLIPID PANEL, STANDARD 21-66-5857Wctagojxqhz [Mass/Vol]143 mg/dLNormal<200Quest DiagnosticsComment on above:Order Comment: FASTING:YES FASTING: YESPerformed By: #### 6399, 24737, 69943, 7600 #### [facility] [address], [address] [place] [address] Excel Expert: Sagar Pathak MDCholesterol in HDL [Mass/Vol]55 mg/dLNormal> OR = 40Quest DiagnosticsComment on above:Order Comment: FASTING:YES FASTING: YESPerformed By: #### 6399, 24158, 60842, 7600 #### [facility] [address], [address] [place] [address] Excel Expert: Sagar Pathak MDCholesterol in LDL [Mass/Vol]70 mg/dLNormal [facility] DiagnosticsComment on above:Order Comment: FASTING:YES FASTING: YESResult Comment: Reference range: <100 Desirable range <100 mg/dL for primary prevention; <70 mg/dL for patients with CHD or diabetic patients with > or = 2 CHD risk factors. LDL-C is now calculated using the Jorge-Jaskaran calculation, which is a validated novel method providing better accuracy than the Friedewald equation in the estimation of LDL-C. Jorge GREEN et al. ISAÍAS. 2013;310(19): 9762-1214 (http://education.Axentra.Meritful/faq/IJQ463)Performed By: #### 6399, 31907, 36643, 7600 #### [facility] [address], [address] [place], [place] [address] Excel Expert: Sagar LOPEZholestyamilka.total/Cholesterol in HDL [Mass ratio]2.6 {ratio}Normal<5.0Quest DiagnosticsComment on above:Order Comment: FASTING:YES FASTING: YESPerformed By: #### 6399, 55199, 12609, 7600 #### [facility] [address], [address] [place] [address] Excel Expert: Sagar TADEO HDL KTDVZPOBYJU52 mg/dL (calc)Normal<130 Quest DiagnosticsComment on above:Order Comment: FASTING:YES FASTING: YESResult Comment: For patients with diabetes plus 1 major ASCVD risk factor, treating to a non-HDL-C goal of <100 mg/dL (LDL-C of <70 mg/dL) is considered a therapeutic option.Performed By: #### 6399, 50085, , 7600 #### [facility] [address], [address] [place] [address] Excel Expert: Sagar Pathak MDTriglyceride [Mass/Vol]93 mg/dLNormal<150Quest DiagnosticsComment on above:Order Comment: FASTING:YES FASTING: YESPerformed By: #### 6399, 72290, , 0 #### [facility] [address], [address] [place] [address] Excel Expert: Sagar Pathak [facility], TOTALon 67-10-1609UIU, TOTAL1.24 ng/mL Normal< OR = 4.00Quest DiagnosticsComment on above:Result Comment: The total PSA value from this assay system is standardized against the WHO standard. The test result will be approximately 20% lower when compared to the equimolar-standardized total PSA ([place] [place]). Comparison of serial PSA results should be interpreted with this fact in mind. This test was performed using the Siemens chemiluminescent method. Values obtained from different assay methods cannot be used interchangeably. PSA levels, regardless of value, should not be interpreted as absolute evidence of the presence or absence of disease.Performed By: #### 6399, 56745, , 7600 #### [facility] [address], [address] [place] [address] Excel Expert: Sagar Pathak MDODESSA [facility] W/REFLEX TO FT4on 25-92-9886QMK W/REFLEX TO FT41.24 mIU/LNormal0.40-4.50Quest DiagnosticsComment on above:Performed By: #### 6399, 92769, , 7600 #### [facility] [address], [address] [place] [address] Excel Expert: Sagar Pathak MDNo Panel Informationon 16-31-2164QrqtbBRAEDEN Negron 06/29/2024 3:46 PM Ear Cerumen Removal [...] Improved Procedure completion: Tolerated well, no immediate complicationsNOMN Healthcare NOMS HealthcareLaboratory - Hematology and Cell countson 96-52-9982AlR1q (Bld) [Mass fraction]6.3 %NOMS HealthcareNo Panel Informationon 27-56-5837KAOS HealthcareUrinalysis macro (dipstick) panel (U)on 40-48-5399Ktujnnkia, UAFew Negative - 4(70) +++ mg/dLNOMS HealthcareBlood, UAPositiveNegative - 50 Gabriel/mcL NOMS HealthcareClarity, UACloudyNOMS HealthcareColor, UAStrawNOMS Healthcare Glucose, UANegativeNegative - 2000(110) ++++ mg/dLNOMS HealthcareInterpretation and review of laboratory resultsAbnormalNOMS HealthcareKetones, UANegative Negative - 160(16) ++++ mg/dLNOMS HealthcareLeukocytes, UAModerateNegative - 500+++ Luzma/mcLNOMS HealthcareNitrite, UANegativeNegative - PositiveNOMS HealthcarepH, UA6.05 - 9NOMS HealthcareProtein, UATraceNegative - 2000(20) ++++ mg/dLNOMS HealthcareSpec Grav, UA1.0201 - 1.03NOMS HealthcareUrobilinogen, UA1.0 0.2 - 12 mg/dLNOMS HealthcareNOMS HealthcareAmbulatory Visit Summaryon 86-74-0374Anpsmdtfve Visit Summary FRANKIE DE ANDA :1950 Visit Date:01/13/2023 Ambulatory Visit Instructions Your Care Team Attending Physician - JIMY BOWEN, Dakota Hoang Primary Care Physician - JENNIFER BOWEN, WESTON Matta This Is Your Medications List aspirin (aspirin 81 mg oral tablet) carvedilol (Coreg 12.5 mg Tab) fluticasone nasal (Flonase 0.05 mg/inh [place]) hydrochlorothiazide-losartan (hydrochlorothiazide-losartan 12.5 mg-50 mg Tab) metformin (metformin 500 [...] Unchanged fluticasone nasal (Flonase 0.05 mg/ inh [place]) 2 Sprays Nasal Inhalation Every day Unchanged hydrochlorothiazide-losartan (hydrochlorothiazide-losartan 12.5 mg-50 mg Tab) 1 Tablets By [...] 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 Denies discomfort, no use of painmedication. Denies bleeding or drainage. Bowels moving well. [...] swallowing difficulties, no hearing loss, no ear infection(s),no nose bleeds. Cardiovascular: normal blood pressure, no [...] BOWEN, MIGUEL A Hawk Only if needed [address] [place] [address]- Additional Instructions: Problem List/Past Medical [...] tab(s), Oral, BID, PRN Flonase 0.05 mg/inh [place], 2 spray(s), Nasal, Daily hydrochlorothiazide-losartan 12.5 mg-50 [...] Recorded SARS-CoV-2 (COVID-19) mRNA BNT-162b2 vax 07/30/2020 RecordedNoCleveland Clinic Akron General Lodi HospitalComment on above:Result Comment: Electronically Signed By: JIMY BOWEN, Dakota Hoang\.br\Date and Time Signed: 01/13/23 16:50 EDTAmbulatory Visit Summaryon 35-84-6943Oejhhqcchr Visit Summary FRANKIE DE ANDA :1950 Visit Date:12/26/2022 Ambulatory Visit Instructions Your Care Team Attending Physician - JIMY BOWEN, Dakota Hoang Primary Care Physician - WESTON BORJA MD This Is Your Medications List aspirin (aspirin 81 mg oral tablet) carvedilol (Coreg 12.5 mg Tab) fluticasone nasal (Flonase 0.05 mg/inh [place]) hydrochlorothiazide-losartan (hydrochlorothiazide-losartan 12.5 mg-50 mg Tab) metformin (metformin 500 mg Tab) rosuvastatin (Crestor 5 mg Tab) tolterodine (Detrol 2 mg Tab) Procedures Performed Repair of left inguinal hernia (12/10/2022), Rezum (04/19/2019), Circumcision, Tonsillectomy. What to do next Scheduled Follow-Up Appointments Thursday 4:00 PM EDT With: JIMY BOWEN, Dakota Hoang Where: General Surgery [facility] General Surgery Office/Clinic Noteon 87-95-2601Mqfmhpa Surgery Office/Clinic NoteChief Complaint post operative follow up HPI Staff [...] swallowing difficulties, no hearing loss, no ear infection(s),no nose bleeds. Cardiovascular: normal blood pressure, no [...] tab(s), Oral, BID, PRN Flonase 0.05 mg/inh [place], 2 spray(s), Nasal, Daily hydrochlorothiazide-losartan 12.5 mg-50 [...] Recorded SARS-CoV-2 (COVID-19) mRNA BNT-162b2 vax 07/30/2020 RecordedCleveland Clinic South Pointe HospitalComment on above:Result Comment: Electronically Signed By: JIMY BOWEN, Dakota Hoang\.br\Date and Time Signed: 12/26/22 16:45 EDTAmbulatory Visit Summaryon 01-80-1794Bcjjctrrfr Visit Summary FRANKIE DE ANDA :1950 Visit Date:12/17/2022 Ambulatory Visit Instructions Your Care Team Attending Physician - Dakota AHN MD Primary Care Physician - WESTON BORJA MD This Is Your Medications List aspirin (aspirin 81 mg oral tablet) carvedilol (Coreg 12.5 mg Tab) fluticasone nasal (Flonase 0.05 mg/inh [place]) hydrochlorothiazide-losartan (hydrochlorothiazide-losartan 12.5 mg-50 mg Tab) metformin (metformin 500 mg Tab) rosuvastatin (Crestor 5 mg Tab) tolterodine (Detrol 2 mg Tab) Procedures Performed Repair of left inguinal hernia (12/10/2022), Rezum (04/19/2019), Circumcision, Tonsillectomy. What to do next Scheduled Follow-Up Appointments Thursday 2:00 PM EDT With: Dakota AHN MD Where: General Surgery [facility] General Surgery Office/Clinic Noteon 95-79-1102Soahhwd Surgery Office/Clinic NoteChief Complaint post operative follow up HPI Staff 7 day post operative follow up post left inguinal hernia repair. Minimal discomfort; taking Ibuprofen as directed. Denies bleeding or drainage. Bowels moving well. Swelling he called about earlier inthe week has greatly improved. 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 Follow-up No qualifying [...] tab(s), Oral, BID, PRN Flonase 0.05 mg/inh [place], 2 spray(s), Nasal, Daily hydrochlorothiazide-losartan 12.5 mg-50 [...] Recorded SARS-CoV-2 (COVID-19) mRNA BNT-162b2 vax 07/30/2020 RecordedCleveland Clinic South Pointe HospitalComment on above:Result Comment: Electronically Signed By: JIMY BOWEN, Dakota Aiken\Date and Time Signed: 12/17/22 15:10 EDTOperative Reporton 64-69-6537Sigpehyyu [id number]#1.00CD:[address] [place], [place] [address]Consultation Noteon 96-91-3147Docmzrdounqf Note [id number]#1.00CD:[address] [place] [address] Reportson 81-55-7683Gtf Reports [id number]#1.00CD:[address] [place] [address] [id number]#1.00CD:[address] [place], [place] [address]Operative Reporton 57-84-1581Xpjdrexov Report [id number]#1.00CD:[address] [place] [address] Reportson 76-18-0554Xpw Reports [id number]#1.00CD:[address] [place] [address] Reportson 76-48-7007Nkp Reports [id number]#1.00CD:[address] [place], [place] [address]Lab [id number]#1.00CD:[address] [place], [place] [address]RAD - MISCon 65-47-4040DCU - MISC [id number]#1.00CD:127[facility]inte HospitalConsent for Procedure/Surgeryon 87-43-2397Igwuasa for Procedure/Surgery [id number]#1.00CD:127[facility] HospitalAmbulatory Visit Summaryon 52-12-3037Xgxwhxqsun Visit Summary FRANKIE DE ANDA :1950 Visit Date:11/18/2022 Ambulatory Visit Instructions Your Care Team Attending Physician - JIMY BOWEN, Dakota Hoang Primary Care Physician - JENNIFER BOWEN, WESTON Matta This Is Your Medications List aspirin (aspirin 81 mg oral tablet) carvedilol (Coreg 12.5 mg Tab) fluticasone nasal (Flonase 0.05 mg/inh [place]) hydrochlorothiazide-losartan (hydrochlorothiazide-losartan 12.5 mg-50 mg Tab) metformin (metformin 500 [...] Unchanged fluticasone nasal (Flonase 0.05 mg/ inh [place]) 2 Sprays Nasal Inhalation Every day Unchanged hydrochlorothiazide-losartan (hydrochlorothiazide-losartan 12.5 mg-50 mg Tab) 1 Tablets By [...] 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 Surgery Office/Clinic Noteon 1950Jnweuiu Surgery Office/Clinic NoteChief Complaint re-evaluate left inguinal hernia HPI Staff [...] swallowing difficulties, no hearing loss, no ear infection(s),no nose bleeds. Cardiovascular: normal blood pressure, no [...] tab(s), Oral, BID, PRN Flonase 0.05 mg/inh [place], 2 spray(s), Nasal, Daily hydrochlorothiazide-losartan 12.5 mg-50 [...] Mother and Father. Immuniza (more content not included)...[facility] Po[facility] HospitalComment on above:Result Comment: Electronically Signed By: JIMY BOWEN, Dakota Hoang\.br\Date and Time Signed: 11/18/22 21:01 EDTFacesheeton 09-91-2081Dnoljsifi [id number]#1.00CD:127NoCleveland Clinic [facility] Lodi HospitalAmbulatory Visit Summaryon 17-06-4443Whdqszllyf Visit Summary FRANKIE DE ANDA :1950 Visit Date:10/01/2022 Ambulatory Visit Instructions Your Diagnosis Irreducible left inguinal hernia Your Care Team Attending Physician - JIMY BOWEN, Dakota Hoang Primary Care Physician - WESTON BORJA MD This Is Your Medications List Contact prescribing physician if questions or concerns aspirin (aspirin 81 mg oral tablet) carvedilol (Coreg 12.5 mg Tab) fluticasone nasal (Flonase 0.05 mg/inh [place]) hydrochlorothiazide-losartan (hydrochlorothiazide-losartan 12.5 mg-50 mg Tab) metformin (metformin 500 mg Tab) rosuvastatin (Crestor 5 mg Tab) tolterodine (Detrol 2 mg Tab) Procedures Performed [facility] (04/19/2019), Circumcision, Tonsillectomy. 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 Vicky BustosCholesterol [Mass/Vol]136 mg/dLNormal<=200[facility] Comment on above:Performed By: #### A1C #### [facility] [address] [place] [address] [address] Vicky BustosCholesterol in HDL [Mass/Vol]49 mg/zOYplfod63-85Syo [facility] HospitalComment on above:Performed By: #### A1C #### [facility] [address] [place] [address] [address] Vicky BustosCholesterol in LDL [Mass/Vol]67.0 mg/dLSelect Medical Specialty Hospital - Cleveland-FairhillComment on above:Performed By: #### A1C #### [facility] [address] [place] [address] Dr. Vicky Carvajalesterhugo.total/Cholesterol in HDL [Mass ratio]2.8 {ratio} NormalThe [facility] HospitalComment on above:Performed By: #### A1C #### [facility] [address] [place] [address] [address] Vicky Mancilla NORMAL> or = 60 mg/dl - LOW CARDIOVASCULAR RISK <40 mg/dl - HIGH CARDIOVASCULAR RISKSelect Medical Specialty Hospital - Cleveland-FairhillComment on above:Performed By: #### A1C #### [facility] [address] [place] [address] [address] Vicky Robb CALC NORMALSEE BELOWSelect Medical Specialty Hospital - Cleveland-FairhillComment on above:Result Comment: <100 mg/dl OPTIMAL 100 - 129 mg/dl NEAR OR ABOVE OPTIMAL 130 - 159 mg/dl BORDERLINE HIGH 160 - 189 mg/dl HIGH >190 mg/dl VERY HIGH Performed By: #### A1C #### [facility] [address] [place] [address] [address] Vicky BustosTriglyceride [Mass/Vol]100 mg/dLNormal<=150The [facility] Comment on above:Performed By: #### A1C #### [facility] [address] [place] [address] [address] Yilan ChangVLDL CALC20.0 mg/dLNormalThe [facility] HospitalComment on above: Performed By: #### A1C #### [facility] [address] [address] [address] Vicky BustosPROF CHEM 8 (BAS METB)on 09-54-3955Wwtst gap [Moles/Vol]12.9 mmol/LNormalThe [facility] HospitalComment on above:Performed By: #### A1C #### [facility] [address] [address] [address] Vicky BustosCalcium [Mass/Vol]9.3 mg/dLNormal8.5-10.1The [facility] Comment on above:Performed By: #### A1C #### [facility] [address] [place] [address] Dr. Vicky BustosChloride [Moles/Vol]100 mmol/OWcxpup42-535NtoOhio State East Hospital Comment on above:Performed By: #### A1C #### [facility] [address] [address] [address] Vicky BustosCO2 [Moles/Vol]30.7 mmol/ONyvoti96.0-32.0The [facility] Comment on above:Performed By: #### A1C #### [facility] [address] [place] [address] Dr. Vicky BustosCreatinine [Mass/Vol]0.93 mg/dLNormal0.70-1.30The [facility] HospitalComment on above:Performed By: #### A1C #### [facility] [address] [place] [address] Dr. Vicky PaulGFR-AF IVORIAN>60Normal>=60The [facility] HospitalComment on above:Performed By: #### A1C #### [facility] [address] [place] [address] Dr. Vicky PaulGFR-NON AF IVORIAN>60Normal>=60The [facility] HospitalComment on above:Performed By: #### A1C #### [facility] [address] [address] [address] Vicky BustosGlucose [Mass/Vol]139 mg/dLCritically spkz30-396Ezv [facility] HospitalComment on above:Performed By: #### A1C #### [facility] [address] [address] [address] Vicky BustosPotassium [Moles/Vol]4.6 mmol/LNormal3.5-5.1[facility] Comment on above:Performed By: #### A1C #### [facility] [address] [address] [address] Vicky BustosSodium [Moles/Vol]139 mmol/DDtuulu180-957Qim [facility] Comment on above:Performed By: #### A1C #### [facility] [address] [place] [address] Dr. Vicky BustosUrea nitrogen [Mass/Vol]14.0 mg/dLNormal7.0-18.0[facility] HospitalComment on above:Performed By: #### A1C #### [facility] [address] [place] [address] Dr. Vicky Martinez nitrogen/Creatinine [Mass ratio]15.1 mg/mgNormalThe [facility] HospitalComment on above:Performed By: #### A1C #### [facility] [address] [place] [address] Dr. Vicky BustosPhysicityler Referralon 17-97-4209Gkxvzyfrr Referral [id number]#1.00CD:127[facility] HospitalOffice Visit (Cardiology)on 94-07-5618Vqrdum-up visitDiagnoses/Problems Assessed Peripheral neuropathy (356.9) (G62.9) Primary hypertension [...] Metabolic Panel; Status:Active - Retrospective Authorization; Requested for:[id number]; Lipid Panel; Status:Active - Retrospective Authorization; Requested for:[id number]; Primary hypertension Start: Losartan Potassium-HCTZ 50-12.5 MG [...] and result(s) with the patient: ECG, echocardiogram andlaboratory tests Chief Complaint FRANKIE DE ANDA is [...] I am not overtly suggestive of significant flow- limiting coronary disease and because of this I [...] not suicidal. All o (more content not included)...NormalUH TouchworksCARDIAC GERRY 3-6on 32-36-8344HT [Catalytic activity/Vol]134 U/TGxpqsb58-514Jws [facility] Comment on above:Performed By: #### A1C #### [facility] [address] [place] [address] Dr. Vicky Anderson.MB [Mass/Vol]1.32 ng/mLNormal<=3.60[facility] Comment on above:Performed By: #### A1C #### [facility] [address] [place] [address] Dr. Vicky HeartOP7.3 pg/mLNormal4.0-76.1The [facility] HospitalComment on above:Result Comment: CUT-OFF POINTS HAVE BEEN ESTABLISHED BASED ON THE FOURTH UNIVERSAL DEFINITIONS OF MYOCARDIAL INFARCTION. THE UPPER REFERENCE LIMIT (URL) OF TROPONIN, DEFINED THE 99TH PERCENTILE OF cTnI DISTRIBUTION IN A REFERENCE POPULATION, HAS BEEN CONFIRMED THE DECISION THRESHOLD FOR [place] DIAGNOSIS.Performed By: #### A1C #### [facility] [address] [place] [address] Dr. Vicky Arias GRERY ADMITon 63-79-0274SS [Catalytic activity/Vol]129 U/L Chacbn70-573Qhk [facility] HospitalComment on above:Performed By: #### CMADM, BMP #### [facility] [address] [place] [address] Dr. Vicky Anderson.MB [Mass/Vol]1.21 ng/mLNormal<=3.60[facility] Comment on above:Performed By: #### CMADM, BMP #### [facility] [address] [place] [address] Dr. Vicky Palacios5.7 pg/mLNormal4.0-76.1[facility] HospitalComharbor oaks hospital on above:Result Comment: CUT-OFF POINTS HAVE BEEN ESTABLISHED BASED ON THE FOURTH UNIVERSAL DEFINITIONS OF MYOCARDIAL INFARCTION. THE UPPER REFERENCE LIMIT (URL) OF TROPONIN, DEFINED THE 99TH PERCENTILE OF cTnI DISTRIBUTION IN A REFERENCE POPULATION, HAS BEEN CONFIRMED THE DECISION THRESHOLD FOR [place] DIAGNOSIS.Performed By: #### CMADM, BMP #### [facility] [address] [place] [address] Dr. Vicky To92 ng/dIPkzszv32-43FhoOhio State East HospitalComment on above: Performed By: #### CMADM, BMP #### [facility] [address] [place] [address] Dr. Vicky العلي AUTO DIFFon 12-12-7149GLVS #0.0 103/ulNormal0.0-0.1The [facility] HospitalComment on above:Performed By: #### CBC #### [facility] [address] [place] [address] Dr. Vicky BustosBasophils/100 WBC (Bld)0.4 %Normal0.2-2.0The [facility] Comment on above:Performed By: #### CBC #### [facility] [address] [place] [address] Dr. Vicky Roy #0.4 103/ulNormal0.0-0.7The [facility] HospitalComment on above: Performed By: #### CBC #### [facility] [address] [place] [address] Dr. Vicky Paulosinophils/100 WBC (Bld)5.5 %Normal0.9-7.0The [facility] Comment on above:Performed By: #### CBC #### [facility] [address] [place] [address] Dr. Vicky Paulrythrocyte distribution width (RBC) [Ratio]13.9 %Zbgbpb79.0-15.0 The [facility] HospitalComment on above:Performed By: #### CBC #### [facility] [address] [place] [address] Dr. Vicky BustosHematocrit (Bld) [Volume fraction]41.1 %Critically low42.0-54.0 The [facility] County HospitalComment on above:Performed By: #### CBC #### [facility] [address] [place] [address] Dr. Vicky BustosHemoglobin (Bld) [Mass/Vol]13.6 g/dLCritically low14.0-18.0The [facility] HospitalComment on above:Performed By: #### CBC #### [facility] [address] [place] [address] Dr. Vicky Alfred #0.03 10e3/ulNormal0.00-0.03The [facility] HospitalComment on above:Performed By: #### CBC #### [facility] [address] [place] [address] Dr. Vicky Alfred %0.4 %Normal0.0-0.5The [facility] HospitalComment on above: Performed By: #### CBC #### [facility] [address] [place] [address] Dr. Vicky Cano #1.8 103/ulNormal1.2-3.8The [facility] HospitalComment on above:Performed By: #### CBC #### [facility] [address] [place] [address] Dr. Vicky Uribehocytes/100 WBC (Bld)25.1 %Iysvlt53.5-60.0The [facility]Com[facility] on above:Performed By: #### CBC #### [facility] [address] [place] [address] Dr. Vicky MobleyUAL DIFF REQNONormalThe [facility] HospitalComment on above: Performed By: #### CBC #### [facility] [address] [place] [address] Dr. Vicky Benjamin (RBC) [Entitic mass]27.4 jfErrvyo88.9-34.0The [facility] HospitalComment on above:Performed By: #### CBC #### [facility] [address] [place] [address] Dr. Vicky Benjamin (RBC) [Mass/Vol]33.1 g/nJBzxbsx69.9-35.2[facility] on above:Performed By: #### CBC #### [facility] [address] [place] [address] Dr. Vicky Benjamin (RBC) [Entitic vol]82.7 sLTyyzjc79.0-94.0The [facility]Com[facility] on above:Performed By: #### CBC #### [facility] [address] [place] [address] Dr. Vicky Swann #0.6 103/ulNormal0.3-0.8The [facility] HospitalComment on above:Performed By: #### CBC #### [facility] [address] [address] [address] Vicky Ninoocytes/100 WBC (Bld)8.3 %Normal1.7-12.0The [facility] Comment on above:Performed By: #### CBC #### [facility] [address] [place] [address] Dr. Vicky MachucaUT #4.3 103/ulNormal1.4-6.5The [facility] HospitalComment on above:Performed By: #### CBC #### [facility] [address] [place] [address] Dr. Vicky Machucautrophils/100 WBC (Bld)60.3 %Udneni32.0-75.0The [facility] HospitalComment on above:Performed By: #### CBC #### [facility] [address] [place] [address] Dr. Vicky BustosPlatelet mean volume (Bld) [Entitic vol]9.4 fLCritically low 9.5-13.5The [facility] HospitalComment on above:Performed By: #### CBC #### [facility] [address] [place] [address] Dr. Vicky BustosPLT175 103/fkGkmgua306-680Otf [facility] HospitalComment on above: Performed By: #### CBC #### [facility] [address] [place] [address] Dr. Vicky BustosRBC4.97 106/ulNormal4.70-6.10The [facility] HospitalComment on above:Performed By: #### CBC #### [facility] [address] [place] [address] Dr. Vicky BustosWBC7.1 103/ulNormal4.0-11.0The [facility] HospitalComment on above: Performed By: #### CBC #### [facility] [address] [place] [address] Dr. Vicky BustosPROF CHEM 8 (BAS METB)on [id number] gap [Moles/Vol]12.5 mmol/LNormalThe [facility] HospitalComment on above:Performed By: #### CMADM, BMP #### [facility] [address] [address] [address] Vicky BustosCalcium [Mass/Vol]9.0 mg/dLNormal8.5-10.1The [facility] Comment on above:Performed By: #### CMADM, BMP #### [facility] [address] [address] [address] Vicky BustosChloride [Moles/Vol]102 mmol/NPktofh96-823Qoy [facility] Comment on above:Performed By: #### CMADM, BMP #### [facility] [address] [address] [address] Vicky BustosCO2 [Moles/Vol]27.3 mmol/JUovpwy66.0-32.0The [facility] Comment on above:Performed By: #### CMADM, BMP #### [facility] [address] [address] [address] Vicky BustosCreatinine [Mass/Vol]0.78 mg/dLNormal0.70-1.30The [facility] HospitalComment on above:Performed By: #### CMADM, BMP #### [facility] [address] [place] [address] Dr. Vicky PaulGFR-AF IVORIAN>60Normal>=60The [facility] HospitalComment on above:Performed By: #### CMADM, BMP #### [facility] [address] [address] [address] Vicky PaulGFR-NON AF IVORIAN>60Normal>=60The [facility] HospitalComment on above:Performed By: #### CMADM, BMP #### [facility] [address] [address] [address] Vicky BustosGlucose [Mass/Vol]160 mg/dLCritically znmm68-261Wbb [facility] HospitalComment on above:Performed By: #### CMADM, BMP #### [facility] [address] [place] [address] Dr. Vicky BustosPotassium [Moles/Vol]3.8 mmol/LNormal3.5-5.1The [facility] Comment on above:Performed By: #### CMADM, BMP #### [facility] [address] [address] [address] Vicky BustosSodium [Moles/Vol]138 mmol/WMrsunb389-574IbuOhio State East Hospital Comment on above:Performed By: #### CMADM, BMP #### [facility] [address] [place] [address] Dr. Vicky BustosUrea nitrogen [Mass/Vol]12.0 mg/dLNormal7.0-18.0[facility] HospitalComment on above:Performed By: #### CMADM, BMP #### [facility] [address] [place] [address] Dr. Vicky Martinez nitrogen/Creatinine [Mass ratio]15.4 mg/mgNoMagruder Memorial HospitalComment on above:Performed By: #### CMADM, BMP #### [facility] [address] [place] [address] Dr. Vicky BustosXR CHEST 1 Von [id number] CHEST 1 VEXAMINATION: XR CHEST 1 V HISTORY: Chest pain COMPARISON: None. TECHNIQUE: PA and lateral chest x-rays FINDINGS: The lung parenchyma is free of consolidation or infiltrate. No pneumothorax or pleural effusion. The cardiac, mediastinal and hilar contours are normal. The visualized osseous structures exhibit no gross abnormality. IMPRESSION: No acute cardiopulmonary abnormality. Electronically authenticated by: KALEB LIRA Date: 2022-08-17 22:51[facility]hillECHOCARDIO M/2D COMPLETEon [id number] M/2D COMPLETE Patient: FRANKIE DE ANDA Exam Date: 08/01/2022 : 1950 Gender:M Ordering : DR WESTON BORJA M.D. Admission #: [id number] Family : Order #: [id number] CLICK HERE TO VIEW EXAM ECHOCARDIOGRAM REPORT PROCEDURE: CARDIO PULMONARY ECHOCARDIO M/2D COMP INDICATIONS: Cardiac murmur, MN, hypertension, diabetes COMPARISON: None. DESCRIPTION: COMPLETE ECHOCARDIOGRAM [...] by: Cristo Gregory M.D. on 08/07/2022 at 09:19NormalThAkron Children's Hospital AUTO DIFFon [id number] #0.0 103/ulNormal0.0-0.1The [facility] HospitalComment on above:Performed By: #### CBC #### [facility] [address] [place] [address] Dr. Vicky BustosBasophils/100 WBC (Bld)0.4 %Normal0.2-2.0[facility] Comment on above:Performed By: #### CBC #### [facility] [address] [address] [address] Vicky Roy #0.2 103/ulNormal0.0-0.7The [facility] HospitalComment on above: Performed By: #### CBC #### [facility] [address] [place] [address] Dr. Vicky Paulosinophils/100 WBC (Bld)3.9 %Normal0.9-7.0[facility] Comment on above:Performed By: #### CBC #### [facility] [address] [address] [address] Vicky Paulrythrocyte distribution width (RBC) [Ratio]14.3 %Oshgfz20.0-15.0 [facility] HospitalComment on above:Performed By: #### CBC #### [facility] [address] [place] [address] Dr. Vicky BustosHematocrit (Bld) [Volume fraction]38.1 %Critically low42.0-54.0 The [facility] HospitalComment on above:Performed By: #### CBC #### [facility] [address] [address] [address] Vicky BustosHemoglobin (Bld) [Mass/Vol]12.6 g/dLCritically low14.0-18.0The [facility] HospitalComment on above:Performed By: #### CBC #### [facility] [address] [address] [address] Vicky Alfred #0.05 10e3/ulCritically high0.00-0.03The [facility] Comment on above:Performed By: #### CBC #### [facility] [address] [place] [address] Dr. Vicky Alfred %0.9 %Critically high0.0-0.5The [facility] HospitalComment on above:Performed By: #### CBC #### [facility] [address] [place] [address] Dr. Vicky Cano #0.9 103/ulCritically low1.2-3.8The [facility] Comment on above:Performed By: #### CBC #### [facility] [address] [place] [address] Dr. Vicky Uribehocytes/100 WBC (Bld)16.3 %Critically low20.5-60.0The [facility] HospitalComment on above:Performed By: #### CBC #### [facility] [address] [address] [address] Vicky MobleyUAL DIFF REQNONormalThe [facility] HospitalComment on above: Performed By: #### CBC #### [facility] [address] [address] [address] Vicky Benjamin (RBC) [Entitic mass]27.2 esNcbalx12.9-34.0The [facility] HospitalComment on above:Performed By: #### CBC #### [facility] [address] [place] [address] Dr. Vicky Benjamin (RBC) [Mass/Vol]33.1 g/rHCpvdvc65.9-35.2The [facility] HospitalComment on above:Performed By: #### CBC #### [facility] [address] [address] [address] Vicky Encinas (RBC) [Entitic vol]82.3 dFUpidyv90.0-94.0The [facility] HospitalComment on above:Performed By: #### CBC #### [facility] [address] [place] [address] Dr. Vicky Swann #0.9 103/ulCritically high0.3-0.8The [facility] Comment on above:Performed By: #### CBC #### [facility] [address] [place] [address] Dr. Vicky Ninoocytes/100 WBC (Bld)16.7 %Critically high1.7-12.0The [facility] HospitalComment on above:Performed By: #### CBC #### [facility] [address] [place] [address] Dr. Vicky Palacios #3.5 103/ulNormal1.4-6.5The [facility] HospitalComment on above:Performed By: #### CBC #### [facility] [address] [place] [address] Dr. Vicky Machucautrophils/100 WBC (Bld)61.8 %Uwnxjr80.0-75.0The [facility] HospitalComment on above:Performed By: #### CBC #### [facility] [address] [place] [address] Dr. Vicky Cervanteslet mean volume (Bld) [Entitic vol]9.0 fLCritically low 9.5-13.5The [facility] HospitalComment on above:Performed By: #### CBC #### [facility] [address] [place] [address] Dr. Vicky BustosPLT136 103/ulCritically ixt626-383Hvw [facility] HospitalComment on above:Performed By: #### CBC #### [facility] [address] [place] [address] Dr. Vicky BustosRBC4.63 106/ulCritically low4.70-6.10The [facility] HospitalComment on above:Performed By: #### CBC #### [facility] [address] [address] [address] Vicky BustosWBC5.6 103/ulNormal4.0-11.0[facility] on above: Performed By: #### CBC #### [facility] [address] [address] [address] Vicky Pruitt URINE PROFILEon [id number] Ql (U)NegativeNormal NEGATIVEOhio State East HospitalComment on above:Performed By: #### ERUR #### [facility] [address] [place] [address] Dr. Vicky Barrazaarity (U)CLEARNormalCLEAROhio State East HospitalComment on above: Performed By: #### ERUR #### [facility] [address] [place] [address] Dr. Vicky Reyes (U)LT. YELLOWNormalYELLOWOhio State East HospitalComment on above:Performed By: #### ERUR #### [facility] [address] [place] [address] Dr. Vicky Hinds micrscopic examination will be performed if indicated. NormalOhio State East HospitalComment on above:Performed By: #### ERUR #### [facility] [address] [place] [address] Dr. Vicyk BustosGlucose Ql (U)NegativeNormalNEGATIVEOhio State East HospitalComment on above:Performed By: #### ERUR #### [facility] [address] [place] [address] Dr. Vicky BustosHemoglobin Ql (U)SMALLAbnormalNEGATIVEMartins Ferry Hospital on above:Performed By: #### ERUR #### [facility] [address] [place] [address] Dr. Vicky BustosKetones Ql (U)NegativeNormalNEGATIVEOhio State East HospitalComment on above:Performed By: #### ERUR #### [facility] [address] [place] [address] Dr. Vicky BustosLEUKOCYTESNegativeNormalNEGATIVEThe [facility] HospitalComment on above:Performed By: #### ERUR #### [facility] [address] [place] [address] Dr. Vicky Mclaughlintrite Ql (U)NegativeNormalNEGATIVEThe [facility] HospitalComment on above:Performed By: #### ERUR #### [facility] [address] [place] [address] Dr. Vicky BustospH (U)5.5 [pH]Normal5-9The [facility] HospitalComment on above: Performed By: #### ERUR #### [facility] [address] [place] [address] Dr. Vicky BustosSPEC GRAVITY1.934Gfbryh2.005-<=1.025The [facility] HospitalComment on above:Performed By: #### ERUR #### [facility] [address] [place] [address] Dr. Vicky Gifford PROTEINTRACENormalNEGATIVE/ TRACEThe [facility] HospitalComment on above:Performed By: #### ERUR #### [facility] [address] [place] [address] Dr. Vicky Wu MICRO INDNOT INDICATEDNormalThe [facility] HospitalComment on above:Performed By: #### ERUR #### [facility] [address] [place] [address] Dr. Vicky BustosUrobilinogen Qn (U)0.2 {Troy'U}/dLNormal0.2 - 1.0The [facility] HospitalComment on above:Performed By: #### ERUR #### [facility] [address] [place] [address] Dr. Vicky BustosPROF CHEM 8 (BAS METB)on 13-07-2628Ijykz gap [Moles/Vol]13.3 mmol/LNormalThe [facility] HospitalComment on above:Performed By: #### BMP #### [facility] [address] [place] [address] Dr. Vicky BustosCalcium [Mass/Vol]8.6 mg/dLNormal8.5-10.1The [facility] Comment on above:Performed By: #### BMP #### [facility] [address] [place] [address] Dr. Vicky BustosChloride [Moles/Vol]98 mmol/YBgngrb86-617Ghh [facility] Comment on above:Performed By: #### BMP #### [facility] [address] [address] [address] Vicky BustosCO2 [Moles/Vol]24.9 mmol/HEhyaeq07.0-32.0The [facility] Comment on above:Performed By: #### BMP #### [facility] [address] [place] [address] Dr. Vicky BustosCreatinine [Mass/Vol]1.00 mg/dLNormal0.70-1.30The [facility] HospitalComment on above:Performed By: #### BMP #### [facility] [address] [place] [address] Dr. Perry ChangEGFR-AF IVORIAN>60Normal>=60The [facility] HospitalComment on above:Performed By: #### BMP #### [facility] [address] [place] [address] Dr. Vicky PaulGFR-NON AF IVORIAN>60Normal>=60The [facility] HospitalComment on above:Performed By: #### BMP #### [facility] [address] [place] [address] Dr. Vicky BustosGlucose [Mass/Vol]215 mg/dLCritically kcro58-468Vwp [facility] HospitalComment on above:Performed By: #### BMP #### [facility] [address] [address] [address] Vicky BustosPotassium [Moles/Vol]4.2 mmol/LNormal3.5-5.1The [facility] Comment on above:Performed By: #### BMP #### [facility] [address] [place] [address] Dr. Vicky BustosSodium [Moles/Vol]132 mmol/LCritically mfx342-122Aij [facility] HospitalComment on above:Performed By: #### BMP #### [facility] [address] [address] [address] Vicky Martinez nitrogen [Mass/Vol]11.0 mg/dLNormal7.0-18.0The [facility] HospitalComment on above:Performed By: #### BMP #### [facility] [address] [address] [address] Vicky BustosUrea nitrogen/Creatinine [Mass ratio]11.0 mg/mgNormalThe [facility] HospitalComment on above:Performed By: #### BMP #### [facility] [address] [place] [address] Dr. Vicky BustosRESPIRATORY PANEL PLUSon [id number] detectedNormal NOT DETECTEDThe [facility] HospitalComment on above:Performed By: #### RSPLUS #### [facility] [address] [place] [address] Dr. Vicky Orellana ParapertusisNot detectedNormalNOT DETECTEDThe [facility] HospitalComment on above:Performed By: #### RSPLUS #### [facility] [address] [place] [address] Dr. Vicky Orellana PertussisNot detectedNormalNOT DETECTEDThe [facility] on above:Performed By: #### RSPLUS #### [facility] [address] [place] [address] Dr. Vicky BustosChlamydia PneumoniaeNot detectedNormalNOT DETECTEDThe [facility] HospitalComment on above:Performed By: #### RSPLUS #### [facility] [address] [place] [address] Dr. Vicky BustosCoronavirus 229ENot detectedNormalNOT DETECTEDThe [facility] HospitalComment on above:Performed By: #### RSPLUS #### [facility] [address] [place] [address] Dr. Vicky BustosCoronavirus YWL5Igh detectedNormalNOT DETECTEDThe [facility] HospitalComment on above:Performed By: #### RSPLUS #### [facility] [address] [address] [address] Vicky Prattronavirus KQ28Lsi detectedNormalNOT DETECTEDThe [facility] HospitalComment on above:Performed By: #### RSPLUS #### [facility] [address] [address] [address] Vicky BustosCoronavirus KM33Wjv detectedNormalNOT DETECTEDThe [facility] HospitalComment on above:Performed By: #### RSPLUS #### [facility] [address] [address] [address] Vicky Hankins A H1Not detectedNormalNOT DETECTEDOhio [facility] Hospital Comment on above:Performed By: #### RSPLUS #### [facility] [address] [address] [address] Vicky Sun H1 2009Not detectedNormalNOT DETECTEDThe [facility] HospitalComhar[facility] oaks hospital on above:Performed By: #### RSPLUS #### [facility] [address] [address] [address] Vicky Hankins A H3Not detectedNormalNOT DETECTEDOhio State East Hospital Comment on above:Performed By: #### RSPLUS #### [facility] [address] [address] [address] Vicky Hankins BNot detectedNormalNOT DETECTEDOhio State East Hospital Comment on above:Performed By: #### RSPLUS #### [facility] [address] [address] [address] Vicky LizapneumovirusNot detectedNormalNOT DETECTEDThe [facility] HospitalComment on above:Performed By: #### RSPLUS #### [facility] [address] [address] [address] Vicky Hubbard. PneumoniaeNot detectedNormalNOT DETECTEDThe [facility] HospitalComharbor oaks hospital on above:Performed By: #### RSPLUS #### [facility] [address] [address] [address] Vicky Fosterenza 1Not detectedNormalNOT DETECTEDThe [facility] HospitalComment on above:Performed By: #### RSPLUS #### [facility] [address] [address] [address] Vicky Kang 2Not detectedNormalNOT DETECTEDThe [facility] HospitalComment on above:Performed By: #### RSPLUS #### [facility] [address] [address] [address] Vicky Kang 3Not detectedNormalNOT DETECTEDThe [facility] HospitalComment on above:Performed By: #### RSPLUS #### [facility] [address] [address] [address] Vicky Kang 4Not detectedNormalNOT DETECTEDThe [facility] HospitalComment on above:Performed By: #### RSPLUS #### [facility] [address] [place] [address] Dr. Vicky Salter/EnterovirusNot detectedNormalNOT DETECTEDThe [facility] HospitalComment on above:Performed By: #### RSPLUS #### [facility] [address] [place] [address] Dr. Vicky You Header 1RESPIRATORY PANEL: VIRUSESSelect Medical [facility] Comment on above:Performed By: #### RSPLUS #### [facility] [address] [place] [address] Dr. Vicky You Header 2RESPIRATORY PANEL: BACTERIASelect Medical Specialty Hospital - Cleveland-FairhillComment on above:Performed By: #### RSPLUS #### [facility] [address] [place] [address] Dr. Vicky McfarlandVNot detectedNormalNOT DETECTEDThe [facility] HospitalComment on above:Performed By: #### RSPLUS #### [facility] [address] [place] [address] Dr. Vicky Horton-CoV-2 (COVID-19) RNA JEFF+probe Ql (Unsp spec)Detected AbnormalNOT DETECTEDThe [facility] HospitalComment on above:Performed By: #### RSPLUS #### [facility] [address] [place] [address] Dr. Vicky Hutson, FREE AND TOTAL RATIOon 01-15-2022% Free PSA28.5 %NormalThe [facility] on above:Result Comment: The table below lists the probability [...] free PSA for any other population of men.Performed By: #### A1C #### [facility] [address] [place] [address] Dr. Vicky BustosProstate specific Ag [Mass/Vol]1.3 ng/mLNormal0.0-4.0The [facility] HospitalComment on above:Result Comment: Path ECLIA methodology. . According to the [place] [employer], Serum PSA should decrease and [...] of the presence or absence of malignant disease.Performed By: #### A1C #### [facility] [address] [place] [address] Dr. Vicky Hutson, Free0.37 ng/mLNormalN/AThe [facility] HospitalComharbor oaks hospital on above:Result Comment: Thasi ECLIA methodology.Performed By: #### A1C #### [facility] [address] [place] [address] Dr. Vicky العلي AUTO DIFFon [id number] #0.1 103/ulNormal0.0-0.1The [facility] on above:Performed By: #### CBC #### [facility] [address] [address] [address] Vicky BustosBasophils/100 WBC (Bld)0.7 %Normal0.2-2.0The [facility] Comment on above:Performed By: #### CBC #### [facility] [address] [place] [address] Dr. Vicky Roy #0.5 103/ulNormal0.0-0.7The [facility] HospitalComment on above: Performed By: #### CBC #### [facility] [address] [place] [address] Dr. Vicky Paulosinophils/100 WBC (Bld)6.8 %Normal0.9-7.0The [facility] Comment on above:Performed By: #### CBC #### [facility] [address] [place] [address] Dr. Vicky Paulrythrocyte distribution width (RBC) [Ratio]13.9 %Yltqrd92.0-15.0 The [facility] HospitalComment on above:Performed By: #### CBC #### [facility] [address] [place] [address] Dr. Vicky BustosHematocrit (Bld) [Volume fraction]44.6 %Cmgvsb32.0-54.0The [facility] HospitalComment on above:Performed By: #### CBC #### [facility] [address] [place] [address] Dr. Vicky BustosHemoglobin (Bld) [Mass/Vol]14.7 g/yHXftfyr78.0-18.0The [facility] HospitalComment on above:Performed By: #### CBC #### [facility] [address] [place] [address] Dr. Vicky Alfred #0.04 10e3/ulCritically high0.00-0.03The [facility] Comment on above:Performed By: #### CBC #### [facility] [address] [place] [address] Dr. Vicky Alfred %0.6 %Critically high0.0-0.5The [facility] HospitalComment on above:Performed By: #### CBC #### [facility] [address] [address] [address] Vicky Cano #2.5 103/ulNormal1.2-3.8The [facility] HospitalComment on above:Performed By: #### CBC #### [facility] [address] [address] [address] Vicky Donaldsonmphocytes/100 WBC (Bld)35.8 %Astlrc91.5-60.0The [facility] HospitalComment on above:Performed By: #### CBC #### [facility] [address] [address] [address] Vicky Gardiner DIFF REQNONormalThe [facility] HospitalComment on above: Performed By: #### CBC #### [facility] [address] [place] [address] Dr. Vicky Benjamin (RBC) [Entitic mass]27.7 wlPuigln18.9-34.0The [facility] HospitalComment on above:Performed By: #### CBC #### [facility] [address] [place] [address] Dr. Vicky Benjamin (RBC) [Mass/Vol]33.0 g/lUWhmvdj73.9-35.2The [facility] HospitalComment on above:Performed By: #### CBC #### [facility] [address] [place] [address] Dr. Vicky Benjamin (RBC) [Entitic vol]84.0 pCDadoqb99.0-94.0The [facility] HospitalComment on above:Performed By: #### CBC #### [facility] [address] [place] [address] Dr. Vicky Swann #0.5 103/ulNormal0.3-0.8The [facility] HospitalComment on above:Performed By: #### CBC #### [facility] [address] [place] [address] Dr. Vicky Ninoocytes/100 WBC (Bld)7.3 %Normal1.7-12.0The [facility] Comment on above:Performed By: #### CBC #### [facility] [address] [address] [address] Vicky MachucaUT #3.4 103/ulNormal1.4-6.5The [facility] HospitalComment on above:Performed By: #### CBC #### [facility] [address] [address] [address] Vicky Machucautrophils/100 WBC (Bld)48.8 %Uioeub24.0-75.0The [facility] on above:Performed By: #### CBC #### [facility] [address] [place] [address] Dr. Vicky BustosPlatelet mean volume (Bld) [Entitic vol]8.6 fLCritically low 9.5-13.5The [facility] HospitalCom[facility] on above:Performed By: #### CBC #### [facility] [address] [place] [address] Dr. Vicky BustosPLT205 103/plYwvcqq721-166Enc [facility] on above: Performed By: #### CBC #### [facility] [address] [place] [address] Dr. Vicky BustosRBC5.31 106/ulNormal4.70-6.10The [facility] on above:Performed By: #### CBC #### [facility] [address] [place] [address] Dr. Vicky BustosWBC7.0 103/ulNormal4.0-11.0The [facility] on above: Performed By: #### CBC #### [facility] [address] [place] [address] Dr. Vicky BustosGLYCOHEMOGLOBIN A1Con [id number] RECOMMENDATIONSEE BELOWNormal [facility] on above:Result Comment: ADA RECOMMENDED LIMIT 4.0 - 6.0 ADA THERAPEUTIC TARGET < 7.0 ACTION SUGGESTED > 7.0Performed By: #### A1C #### [facility] [address] [place] [address] Dr. Vicky BustosGlucose [Mass/Vol]148 mg/dLSelect Medical Specialty Hospital - Cleveland-FairhillComment on above:Performed By: #### A1C #### [facility] [address] [address] [address] Vicky BustosHbA1c (Bld) [Mass fraction]6.8 %Critically high4.5-6.2[facility] HospitalComment on above:Performed By: #### A1C #### [facility] [address] [address] [address] Vicky BustosLIPID PROFILEon [id number]-HDL RATIO NORMSEE [facility] HospitalComment on above:Result Comment: 3.3 - 4.4 LOW RISK 4.4 - 7.1 AVERAGE RISK 7.1 - 11.0 MODERATE RISK >11.0 HIGH RISKPerformed By: #### A1C #### [facility] [address] [place] [address] Dr. Vicky BustosCholesterol [Mass/Vol]237 mg/dLCritically high<=200The [facility] HospitalComment on above:Performed By: #### A1C #### [facility] [address] [address] [address] Vicky Carvajalesterol in HDL [Mass/Vol]54 mg/kWBcsnei64-22Rzc [facility] HospitalComhar[facility] on above:Performed By: #### A1C #### [facility] [address] [place] [address] Dr. Vicky Carvajalesterol in LDL [Mass/Vol]161.6 mg/dLSelect Medical Specialty Hospital - Cleveland-FairhillComment on above:Performed By: #### A1C #### [facility] [address] [address] [address] Vicky Carvajalesterhugo.total/Cholesterol in HDL [Mass ratio]4.4 {ratio} NormalThe [facility] HospitalComharbor oaks hospital on above:Performed By: #### A1C #### [facility] [address] [address] [address] Vicky BustosHDL NORMAL> or = 60 mg/dl - LOW CARDIOVASCULAR RISK <40 mg/dl - HIGH CARDIOVASCULAR RISKSelect Medical Specialty Hospital - Cleveland-FairhillComment on above:Performed By: #### A1C #### [facility] [address] [place] [address] Dr. Vicky Robb CALC NORMALSEE BELOWSelect Medical Specialty Hospital - Cleveland-FairhillComment on above:Result Comment: <100 mg/dl OPTIMAL 100 - 129 mg/dl NEAR OR ABOVE OPTIMAL 130 - 159 mg/dl BORDERLINE HIGH 160 - 189 mg/dl HIGH >190 mg/dl VERY HIGH Performed By: #### A1C #### [facility] [address] [place] [address] Dr. Vicky BustosTriglyceride [Mass/Vol]107 mg/dLNormal<=150The [facility] Comment on above:Performed By: #### A1C #### [facility] [address] [place] [address] Dr. Vicky FordLDL CALC21.4 mg/dLNoMagruder Memorial HospitalComment on above: Performed By: #### A1C #### [facility] [address] [place] [address] Dr. Vicky BustosPROF 14(COMP METB)on 82-19-0166Byyemcd [Mass/Vol]3.8 g/dLNormal 3.4-5.0The [facility] HospitalComment on above:Performed By: #### A1C #### [facility] [address] [place] [address] Dr. Vicky BustosAlbumin/Globulin [Mass ratio]1.0 {ratio}NormalThe [facility] HospitalComment on above:Performed By: #### A1C #### [facility] [address] [place] [address] Dr. Vicky Glasgow [Catalytic activity/Vol]77 U/NKyotzi51-674Lpc [facility] HospitalComment on above:Performed By: #### A1C #### [facility] [address] [place] [address] Dr. Vicky Diez [Catalytic activity/Vol]17 U/HYucohl72-35Zlg [facility] HospitalComment on above:Performed By: #### A1C #### [facility] [address] [place] [address] Dr. Vicky Jessica gap [Moles/Vol]12.2 mmol/LNormalOhio State East Hospital Comment on above:Performed By: #### A1C #### [facility] [address] [address] [address] Vicky BustosAST [Catalytic activity/Vol]13 U/LCritically gmk21-37Aqd [facility] HospitalComment on above:Performed By: #### A1C #### [facility] [address] [address] [address] Vicky BustosBilirubin [Mass/Vol]1.0 mg/dLNormal0.2-1.0The [facility] Comment on above:Performed By: #### A1C #### [facility] [address] [address] [address] Vicky BustosCalcium [Mass/Vol]8.7 mg/dLNormal8.5-10.1The [facility] Comment on above:Performed By: #### A1C #### [facility] [address] [address] [address] Vicky BustosChloride [Moles/Vol]100 mmol/ILsmjpc08-519Pzd [facility] Comment on above:Performed By: #### A1C #### [facility] [address] [place] [address] Dr. Vicky BustosCO2 [Moles/Vol]27.1 mmol/KHluuod04.0-32.0The [facility] Comment on above:Performed By: #### A1C #### [facility] [address] [address] [address] Vicky BustosCreatinine [Mass/Vol]0.92 mg/dLNormal0.70-1.30The [facility] HospitalComment on above:Performed By: #### A1C #### [facility] [address] [place] [address] Dr. Vicky PaulGFR-AF IVORIAN>60Normal>=60The [facility] HospitalComment on above:Performed By: #### A1C #### [facility] [address] [address] [address] Vicky PaulGFR-NON AF IVORIAN>60Normal>=60The [facility] HospitalComment on above:Performed By: #### A1C #### [facility] [address] [address] [address] Vicky BustosGlobulin (S) [Mass/Vol]3.9 g/dLNormalThe [facility] HospitalComment on above:Performed By: #### A1C #### [facility] [address] [address] [address] Vicky BustosGlucose [Mass/Vol]120 mg/dLCritically guqn51-659Gds [facility] HospitalComment on above:Performed By: #### A1C #### [facility] [address] [address] [address] Vicky BustosPotassium [Moles/Vol]4.3 mmol/LNormal3.5-5.1The [facility] Comment on above:Performed By: #### A1C #### [facility] [address] [address] [address] Vicky BustosProtein [Mass/Vol]7.7 g/dLNormal6.4-8.2The [facility] Comment on above:Performed By: #### A1C #### [facility] [address] [address] [address] Vicky ButsosSodium [Moles/Vol]135 mmol/LCritically qqz392-212Pbp [facility] HospitalComment on above:Performed By: #### A1C #### [facility] [address] [address] [address] Vicky BustosUrea nitrogen [Mass/Vol]18.0 mg/dLNormal7.0-18.0The [facility] HospitalComment on above:Performed By: #### A1C #### [facility] [address] [address] [address] Vicky BustosUrea nitrogen/Creatinine [Mass ratio]19.6 mg/mgNormalThe [facility] HospitalComment on above:Performed By: #### A1C #### [facility] [address] [address] [address] Vicky Dai-19 PCR (CVDTB)on 75-56-4477PSKZ-CoV-2 (COVID-19) RNA JEFF+probe Ql (Unsp spec)Not detectedNormalNOT DETECTEDThe [facility] Comment on above:Result Comment: This test is not yet approved or cleared by the [place] FDA. When there are no FDA-approved or cleared tests available, and other criteria are met, FDA can make tests available under an emergency access mechanism called an Emergency Use Authorization (EUA). The EUA for this test is supported by the [place] of Health and Human Service's (HHS's) declaration that circumstances exist to justify the emergency use of in vitro diagnostics for the detection and/or diagnosis of the virus that causes COVID- 19. This EUA will remain in effect (meaning [...] of clinical signs and symptoms consistent with SARS-CoV-2.Performed By: #### CVDTBH #### [facility] [address] [place] [address] Dr. Vicky Sim carotid doppler BIon 39-62-2600NQ carotid doppler [facility] [place] [address] [place] [address] Ultrasound Report Signed Patient: Frankie De Anda MR#: [id number] : 1950 Acct:[id number] Age/Sex: 71 / M ADM Date: 11/12/21 Loc: [facility] Room: Type: [facility] Attending Dr: Melchor Mondragon MD Ordering Provider: [...] Melchor Mondragon M.D.11/12/2021 1:08 PM Dictation [facility] Tech: Jaye Ngoiam Transcribed By: STAN 11/12/21 747 Dictated By: Melchor Mondragon MD 11/12/211307 Signed By: 11/12/21 749NoOhio[facility] Vital Signs Date TimeVital SignValuePerforming IdxhinlzlZvqznayt96-63-0821 14:01-0400Body atwoda268.1 Caity Estrada MD Work Phone: [facility] CenterBruriayvpk90-47-8813 14:01-0400Body mass index (BMI) [Ratio]32.95 kg/n7VrjtvwAntwon Estrada MD Work Phone: 1(367)[facility]-6625[facility] CenterBotyuxamjr26-38-6846 14:01-0400Body slektl06.81 kgAntwon Estrada MD Work Phone: 1(419)[facility]-[address] [place], [place] [address]Jcehgjvfwd46-71-2298 14:01-0400Diastolic blood nosgljni43 mm[Hg]Antwon Estrada MD Work Phone: 1(397)[facility] [place], [place] [address]Vsbzyznxyg99-05-1407 14:01-0400Heart rate81 /min Antwon Estrada MD Work Phone: 1(369)[facility]-9445[facility] CenterMsxvhytrao49-81-1034 14:01-0400Systolic blood sywsmvrt255 mm[Hg]Antwon Estrada MD Work Phone: 1(750)[facility]-[address] [address]Pwscxnyqrp34-01-3893 15:23-0400Body vqexho697.1 cmWeston Borja MD Work Phone: 1(015)[facility] [place], [place] [address]Vnqgwqhgvj33-05-8818 15:23-0400Body mass index (BMI) [Ratio]32.95 kg/y5OafpyrWeston Borja MD Work Phone: 1(963)[facility]-[address] [place], [place] [address]Uoxaxnbkkc06-83-2004 15:23-0400Body tlgvsa05.81 kgWeston Borja MD Work Phone: 1(645)[facility] [place], [place] [address]Derunajzwq31-22-8337 15:23-0400Diastolic blood mywetsbl28 mm[Hg]Weston Borja MD Work Phone: 1(812)815-[address] [place], [place] [address]Ngbxlnduuh96-59-2244 15:23-0400Heart rate78 /min Weston Borja MD Work Phone: [phone])[facility] [place], [place] [address]Eynesphesj14-78-6990 15:23-0416OaF0% (BldA) [Mass fraction]97 %Weston Borja MD Work Phone: 1(492)573-[address] [place], [place] [address]Hyhvebyrev19-84-3829 15:23-0400Systolic blood krggiawh607 mm[Hg]Weston Borja MD Work Phone: [facility] CenterGfaabpbmjx66-41-7877 14:02-0400Body .1 Noa Jacques GUN PERFORATOR Work Phone: [facility] CenterLhyfuyckzi17-59-2130 14:02-0400Body mass index (BMI) [Ratio]33.45 kg/k2BoncmzMerry Jacques GUN PERFORATOR Work Phone: [facility] CenterDqnutpmskc55-10-8265 14:02-0400Body diniev44.17 kgMerry Jacques GUN PERFORATOR Work Phone: [facility] CenterTzpplacwgj00-16-1509 14:02-0400Diastolic blood pikqhttp03 mm[Hg]Merry Jacques GUN PERFORATOR Work Phone: [facility] CenterObjzycuxub04-71-9781 14:02-0400Heart rate72 /min Merry Jacques GUN PERFORATOR Work Phone: [facility] CenterOhcgprnszf86-71-1127 14:02-0400Respiratory rate16 /minSdeepa Jacques GUN PERFORATOR Work Phone: [facility] CenterRaslnjzxkg13-36-0489 14:02-2141CfB0% (BldA) [Mass fraction]98 %Merry Jacques GUN PERFORATOR Work Phone: [facility] CenterCeahpceref71-80-3222 14:02-0400Systolic blood owqentgw052 mm[Hg]Merry Jacques GUN PERFORATOR Work Phone: NOEx[facility] CenterIdjgvaaqde85-26-2759 15:12-0400Body submdg781.1 Noa Jacques GUN PERFORATOR Work Phone: NOEx[facility] CenterFwxumaosuy62-94-2819 15:12-0400Body mass index (BMI) [Ratio]33.45 kg/y5YmnefrMerry Jacques GUN PERFORATOR Work Phone: NOEx[facility] CenterStwudhldhl02-80-8581 15:12-0400Body .17 kgMerry Jacques GUN PERFORATOR Work Phone: NOEx[facility] CenterVidpvfvljd43-10-6755 15:12-0400Diastolic blood tfiniqvi60 mm[Hg]Merry Jacques GUN PERFORATOR Work Phone: NOEx[facility] CenterLtvqglxytw40-83-7566 15:12-0400Heart rate75 /min Merry Jacques GUN PERFORATOR Work Phone: [facility] CenterHhhxgcmzng90-21-9638 15:12-0400Respiratory rate17 /minSlauren Jacques GUN PERFORATOR Work Phone: NOEx[facility] CenterPkethytfqa19-20-5354 15:12-2618DfO8% (BldA) [Mass fraction]98 %Merry Jacques GUN PERFORATOR Work Phone: [facility] CenterIckahlgetg13-65-2131 15:12-0400Systolic blood zymlvbpq636 mm[Hg]Merry Jacques GUN PERFORATOR Work Phone: 1(423)[facility] [place], [place] [address]Ybocoecxdz87-90-2993 14:17-0400Body yadcdj481.1 cmWeston Borja MD Work Phone: 1(080)[facility]-[address] [place], [place] [address]Deijhffutc07-34-9799 14:17-0400Body mass index (BMI) [Ratio]34.45 kg/u3SeuhquWeston Borja MD Work Phone: 1(614)778-[address] [place], [place] [address]Ojdaxnemxb53-47-7261 14:17-0400Body jufdiw80.89 kgWeston Borja MD Work Phone: 1(978)[facility]-[address] [place], [place] [address]Cffwvmdzvo87-02-8607 14:17-0400Diastolic blood idsxwxza49 mm[Hg]Weston Borja MD Work Phone: [facility] CenterHpbukybeqj93-66-0519 14:17-0400Heart rate75 /min Weston Borja MD Work Phone: [facility] CenterKrsbtzqtkd34-43-6113 14:17-7820BrL7% (BldA) [Mass fraction]97 %Weston Borja MD Work Phone: NOEx[facility] CenterWmwvvjvrrm87-28-4750 14:17-0400Systolic blood xeqgxsgz089 mm[Hg]Weston Borja MD Work Phone: 1(946)219-[address] [place], [place] [address]Rajivhicrn23-15-9285 13:50-0400Body .1 cmTita DERAS Work Phone: NOEx[facility] CenterJaifwrsfds95-61-4063 13:50-0400Body mass index (BMI) [Ratio]34.25 kg/i1Alxrm Hemmer PA Work Phone: [facility] CenterFskjpknemm96-14-1615 13:50-0400Body xycgsv28.35 kgClevelanden Hemmer PA Work Phone: [facility] CenterIhkpxijpbn67-17-3825 13:50-0400Diastolic blood tzmpwouq08 mm[Hg]Tita Hemmer PA Work Phone: [facility] CenterZfllfmeibj03-78-6858 13:50-0400Heart rate83 /min Tita Hemmer PA Work Phone: [facility] CenterShprgwcwce43-56-8473 13:50-0400Respiratory rate16 /minKaren Hemmer PA Work Phone: [facility] CenterXzdqyclkhb36-25-5869 13:50-8431XnM8% (BldA) [Mass fraction]97 %Tita Hemmer PA Work Phone: [facility] CenterPcywitdmgq41-47-7882 13:50-0400Systolic blood jtejdblt038 mm[Hg]Tita Hemmer PA Work Phone: [facility] CenterRtgdkrxmwq12-21-7298 13:59-0400Body ukguxl732.1 cmWeston Borja MD Work Phone: [facility] CenterKfxrwjgcig53-65-9183 13:59-0400Body mass index (BMI) [Ratio]34.28 kg/b3OkelslWeston Borja MD Work Phone: [facility] CenterMkjlbttoib87-50-3721 13:59-0400Body ozknpq75.44 kgWeston Borja MD Work Phone: NOEx[facility] CenterFpxrquqniz56-97-8894 13:59-0400Diastolic blood ixmvvedm66 mm[Hg]Weston Borja MD Work Phone: NOEx[facility] CenterIlbvekmfhu05-40-0892 13:59-0400Heart rate73 /min Weston Borja MD Work Phone: NOEx[facility] CenterLjueratfyz39-20-7820 13:59-5148XfP0% (BldA) [Mass fraction]100 %Weston Borja MD Work Phone: [facility] CenterDvqxhsnpxu81-75-4592 13:59-0400Systolic blood qiulrrjs263 mm[Hg]Weston Borja MD Work Phone: [facility] CenterAwjugmgspk32-08-1396 14:23-0500Body mass index (BMI) [Ratio]34.68 kg/b2EftoglWeston Borja MD Work Phone: [facility] CenterDyhqfipzlc53-20-3729 14:23-0500Body ljjkuv70.53 kgDalillian Borja MD Work Phone: [facility] CenterQczdmkaqhx49-72-3080 14:23-0500Diastolic blood owatwcyr55 mm[Hg]Weston Borja MD Work Phone: [facility] CenterDgueieulsp83-64-6166 14:23-0500Heart rate68 /min Weston Borja MD Work Phone: [facility] CenterYkqjocwhbw18-18-5258 14:23-0500Respiratory rate20 /minDepi Borja MD Work Phone: 1(789)[facility]8474[facility] CenterDisnnjktwg07-81-2000 14:23-4903GlZ9% (BldA) [Mass fraction]99 %Weston Borja MD Work Phone: [facility] CenterGgkwvgwgeg26-22-8294 14:23-0500Systolic blood jfqvthoo038 mm[Hg]Weston Borja MD Work Phone: [phone] CenterZhvbodezzz28-06-2734 15:40-0500Diastolic blood ealrujvy89 mm[Hg]Tita Westbrook PA Work Phone: 1([phone])9242338[facility] CenterTqlskzbpqp09-63-7181 15:40-0500Systolic blood uufdztnb469 mm[Hg]Tita Westbrook PA Work Phone: 1([phone] Springs Medical CenterGlzxuhmymf12-36-9304 15:01-0500Body prvcof417.1 cmTita Westbrook PA Work Phone: [phone] CenterMvzfhfayqu25-61-5923 15:01-0500Body mass index (BMI) [Ratio]34.85 kg/v8NmdyrTita Wesbtrook PA Work Phone: [phone] CenterEjiaeugnas71-09-2908 15:01-0500Body temperature 98.2 [degF]Tita Hemmer PA Work Phone: NOEx[facility] CenterPveesdnbyd34-99-4498 15:01-0500Body belgvh07.98 kgTita Hemmer PA Work Phone: NOEx[facility] CenterDnefqknjdp80-46-8914 15:01-0500Heart rate72 /min Tita Hemmer PA Work Phone: NOEx[facility] CenterQrafeogilb06-93-2331 15:01-0500Respiratory rate16 /minClevelanden Hemmer PA Work Phone: NOEx[facility] CenterYepzweejit70-14-6884 15:01-1542NtB9% (BldA) [Mass fraction]97 %Tita Hemmer PA Work Phone: NOEx[facility] CenterFpgmjbzdbk56-93-2477 15:26-0500Body feyebu262.1 cmWeston Borja MD Work Phone: NOEx[facility] Medical CenterBwxzwlfvxq83-32-2046 15:26-0500Body mass index (BMI) [Ratio]35.11 kg/v9DmbhwaWeston Borja MD Work Phone: NOEx[facility] CenterLyvulyiixp72-44-9568 15:26-0500Body vjesvw06.71 kgWeston Borja MD Work Phone: NOEx[facility] CenterDebptzpjji74-33-3858 15:26-0500Diastolic blood emzxvhvu72 mm[Hg]Weston Borja MD Work Phone: NOEx[facility] CenterWzifpmurer40-94-3245 15:26-0500Heart rate74 /min Weston Borja MD Work Phone: NOEx[facility] CenterHsqutenbln13-80-9588 15:26-0774QlM1% (BldA) [Mass fraction]97 %Weston Borja MD Work Phone: NOEx[facility] CenterZjmkkztiom01-89-4690 15:26-0500Systolic blood mm[Hg]Weston oBrja MD Work Phone: NOEx[facility] CenterNicbuxdabg97-26-0137 13:43-0400Body azcuwa855.1 cmWeston Borja MD Work Phone: 1(581)788-[address] [place], [place] [address]Wyiszlqhtj34-62-7926 13:43-0400Body mass index (BMI) [Ratio]34.28 kg/d0BrkuqqWeston Borja MD Work Phone: 1(159)612-[address] [place], [place] [address]Lnubcuscqo29-40-2092 13:43-0400Body bjagso88.44 kgWeston Borja MD Work Phone: [facility] CenterGgajovogyr77-00-0981 13:43-0400Diastolic blood gzvjabih72 mm[Hg]Weston Borja MD Work Phone: 1(487)[address] [place], [place] [address]Fjffpqxvyc10-62-2300 13:43-0400Heart rate86 /min Weston Borja MD Work Phone: 1(763)[address]290[address] [place], [place] [address]Waquehvbfx06-46-2915 13:43-3853WuA2% (BldA) [Mass fraction]99 %Weston Borja MD Work Phone: 1(430)558-[address] [place], [place] [address]Wntbjntxia33-35-7706 13:43-0400Systolic blood bfxounkp121 mm[Hg]Weston Borja MD Work Phone: 1(070)[address] [place], [place] [address]Dkhofdoikl42-47-3468 13:16-0400Body eplewt442.18 cmOhio[facility]07-09-2024 13:16-0400Body mass index (BMI) [Ratio]31.3 kg/t7GfccacbfsOhiohealth Arthur G.[facility]. [facility]07-09-2024 13:16-0400Body swsvuerixpa38.7 [degF][facility]07-09-2024 13:16-0400Body tcefut36.71 kgOhiohealth Arthur G.[facility]. [facility], [facility]07-09-2024 13:16-0400Diastolic blood pwivzvxx26 mm[Hg][facility]07-09-2024 13:16-0400 Heart rate74 /minOhiohealth Arthur G.[facility]. [facility]07-09-2024 13:16-5715TbZ1% (BldA) [Mass fraction]97 %[facility]07-09-2024 13:16-0400 Systolic blood xxseoopl233 mm[Hg][facility]06-20-2023 15:35-0400Blood Pressure LocationMichael NILL [facility] Nquashzx52-65-5608 15:35-0400Diastolic blood tvoizljs80 mm[Hg]Dakota NILL [facility] Mowpnrwn49-21-8426 15:35-0400Heart rate 76 /minMichael NILL General Surgery Zidjtsvj53-32-0112 15:35-0400 Respiratory rate16 /minMichael NILL [facility] Nylyokme29-97-1451 15:35-0400Systolic blood tnkpefsb163 mm[Hg]Dakota NILL [facility] Lotibkwf05-06-0970 14:14-0400Blood Pressure LocationMichael NILL [facility] Ceiisqvj37-42-2515 14:14-0400Diastolic blood mm[Hg]Dakota NILL [facility] Mvftlypt72-88-4843 14:14-0400Heart rate 70 /minMichael NILL [facility] Fykoutis56-77-9133 14:14-0400 Respiratory rate16 /minMichael NILL [facility] Huzhmogi31-99-4633 14:14-0400Systolic blood mm[Hg]Dakota NILL [facility] Fvhlcrea89-01-8887 14:00-0400Body .64 cmJudith Gibson Other [employer] Other 06-14-2022 14:00-0400Body mass index (BMI) [Ratio] 30.66 kg/j7ImoslvJudith Gibson Other [employer] Other 06-14-2022 14:00-0400Body zsesvabdmgq43 [degF]Judith Gibson Other [employer] Other 06-14-2022 14:00-0400Body dylyqn54.18 kgJudith Gbison Other [employer] Other 06-14-2022 14:00-0400Diastolic blood mm[Hg] Judith Gibson Other [employer] Other 06-14-2022 14:00-0400Respiratory rate18 /minJudith Gibson Other [employer] Other 06-14-2022 14:00-0129AfN0% (BldA) [Mass fraction]98 % Judith Gibson Other BanyanPlaceBlogger Other 06-14-2022 14:00-0400Systolic blood dyktoxrt817 mm[Hg] Judith Gibson Other [employer] Other Encounters Encounter DateEncounter TypeCare ProviderFacilityStart: 03-10-2025 End: 36-74-2967Bwzyneqio Result EncounterGeneric External Data ProviderNOMS External Department UnsolicitedStart: 03-10-2025 End: 29-42-0517Ipxfujruz Result EncounterGeneric External Data ProviderNOMS External Department UnsolicitedStart: 03-03-2025 End: 26-64-2691RdnqfsYeylg M Hemmer PA Work Phone: [facility] [address] MedicineComment on above: Dysfunction of right eustachian tubeEczema, unspecified typeStart: 02-21-2025 End: 83-28-2692Bsaqwz Rhina Estrada MD Work Phone: NOSS [place] OtolaryngologyStart: 02-21-2025 End: 47-03-2101Mhfbll Rhina Estrada MD Work Phone: NOMS [place] OtolaryngologyStart: 02-21-2025 End: 38-36-9548Othuke outpatient new 45 Valentin Estrada MD Work Phone: NOMS [place] OtolaryngologyComment on above:OME (otitis media with effusion), right (Primary Dx); Chronic dysfunction of right eustachian tube; CSF otorrheaStart: 02-21-2025 End: 71-59-2612awxyioyezdGSIAPH H TIMMISNot AvailableStart: 02-13-2025 End: 49-63-6427Wkobyh outpatient visit 25 minutesWeston Borja MD Work Phone: NOMS [place] [facility] MedinceComment on above:Idiopathic progressive neuropathy (Primary Dx); 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, without long-term current use of insulin, unspecified laterality (HCC); Essential (primary) hypertension ; Allergic rhinitis, unspecified seasonality, unspecified trigger; Chronic dysfunction of right eustachian tubeStart: 02-13-2025 End: 67-07-9768rioeyjjtpaNIPYSW B BERRYNot AvailableStart: 02-13-2025 End: 46-32-7764Vgbhhd Peg Borja MD Work Phone: NOMS [place] [facility] MedinceStart: 02-13-2025 End: 18-21-7581Dcthum Peg Borja MD Work Phone: NOMS [place] [facility] MedinceStart: 02-01-2025 End: 74-46-6778Wtvwvqtzj encounterWeston Borja MD Work Phone: NOMS [place] [facility] MedinceStart: 01-12-2025 End: 37-92-6746Vffuzi Bautista Jacques NP Work Phone: NOMS [place] [facility] MedinceStart: 01-12-2025 End: 47-34-7132Skysqe Bautista Jacques GUN PERFORATOR Work Phone: NOMS [place] Victor MedinceStart: 01-12-2025 End: 32-94-4900Zbjlzo outpatient visit 25 minutesMerry Jacques GUN PERFORATOR Work Phone: NOYM [place] Victor MedinceComment on above:Atopic dermatitis, unspecified type (Primary Dx); FolliculitisStart: 01-12-2025 End: 16-36-4218lbrwnepnpwVFRDQS M SHIVELYNot AvailableStart: 01-05-2025 End: 85-23-9725oamtuiresjKZLFYG M SHIVELYNot AvailableStart: 01-05-2025 End: 36-19-1202Wflgep outpatient visit 25 minutesMerry Jacques GUN PERFORATOR Work Phone: NOWB [place] Victor MedinceComment on above:Essential (primary) hypertension (Primary Dx)Start: 12-26-2024 End: 46-22-1853Twrfdfpmn encounterWetson Borja MD Work Phone: NOMS [place] Victor MedinceComment on above:Med Refill Start: 12-01-2024 End: 28-44-7692Serqve Peg Borja MD Work Phone: NOMS CI FMStart: 12-01-2024 End: 44-52-1991Yxxbps Peg Borja MD Work Phone: NOMS CI FMStart: 10-17-2024 End: 85-12-0882Jcbgt of hemosiderin, quantWeston Borja MD Work Phone: [facility] Work Phone: Start: 10-17-2024 End: 63-18-2436Agmfzqh encounter procedureWeston Borja MD Work Phone: NOMS CI FMComment on above:Routine general medical examination at health care facility (Primary Dx); ACP (advance care planning); 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, without long-term current use of insulin, unspecified laterality (CMS/HCC); Essential (primary) hypertension (CMS/HCC); Chronic fatigueStart: 10-17-2024 End: 46-17-2916ngktnrctoaJPIDTH B BERRYNot AvailableStart: 10-17-2024 End: 69-43-7461Lqwjyc Peg Borja MD Work Phone: NOMS CI FMStart: 10-17-2024 End: 63-39-0040Scsdhj Peg Borja MD Work Phone: [phone] CI FMStart: 10-12-2024 End: 93-29-0593Rfsbyl Marj Westbrook PA Work Phone: [phone] CI FMStart: 10-12-2024 End: 60-12-8338Sotbfz Marj Westbrook PA Work Phone: NOMS CI FMStart: 10-12-2024 End: 56-16-3977Pkbjdk outpatient visit 15 minutesTita Westbrook PA Work Phone: NOMS CI FMComment on above:Dysfunction of right eustachian tube (Primary Dx)Start: 10-12-2024 End: 23-26-4943hpzyqcfdutLCVBC M HEMMERNot AvailableStart: 08-22-2024 End: 22-17-7929Inbmxc Peg Borja MD Work Phone: NOMS CI FMStart: 08-22-2024 End: 61-46-3062Vqwinr Peg Borja MD Work Phone: [phone] CI FMStart: 08-22-2024 End: 40-66-2592Jlvdyr outpatient visit 25 minutesDalillian Borja MD Work Phone: NOMS CI FMComment on above:Acute sinusitis, recurrence not specified, unspecified location (Primary Dx); Primary hypertension (CMS/HCC); Diabetic peripheral neuropathy (CMS/HCC)Start: 08-22-2024 End: 78-88-4996tqvmtznbqhVMDRTH B BERRYNot AvailableStart: 07-22-2024 End: 76-52-9815Dmkagz Peg Borja MD Work Phone: NOMS CI FMStart: 07-22-2024 End: 57-24-1945Dzxtat Peg Borja MD Work Phone: NOMS CI FMStart: 07-22-2024 End: 47-66-9632zhzbalrfwrWXFLUW B BERRYNot AvailableStart: 07-18-2024 End: 83-71-0053Foqqtb outpatient visit 25 minutesWeston Borja MD Work Phone: NOMS CI FMComment on above:Primary hypertension (CMS/HCC) (Primary Dx); Diabetic peripheral neuropathy (CMS/HCC); Idiopathic progressive neuropathyStart: 07-18-2024 End: 48-02-6474Cgqezi Peg Borja MD Work Phone: NOMS CI FMStart: 07-18-2024 End: 55-37-8455Qsekmb Peg Borja MD Work Phone: NOMS CI FMStart: 07-18-2024 End: 03-57-8121lbqloydgszBTQZKH B BERRYNot AvailableStart: 06-29-2024 End: 09-25-0549Oempji outpatient visit 15 minutesTita DERAS Work Phone: NOMS CI FMComment on above:Primary hypertension (CMS/HCC) (Primary Dx); Bilateral impacted cerumen; Nasal congestion; EpistaxisStart: 06-29-2024 End: 44-02-0530xhenpzrucqCTLNB M HEMMERNot AvailableStart: 06-29-2024 End: 76-82-5241Zoduqr Marj DERAS Work Phone: NOMS CI FMStart: 06-29-2024 End: 03-56-9896Kdmdxn Marj DERAS Work Phone: NOMS CI FMStart: 05-16-2024 End: 83-57-9037Sfbkr of hemosiderin, Adriane Borja MD Work Phone: NOAG HealthcareStart: 05-16-2024 End: 20-31-7891Aqnlrgv encounter procedureWeston Borja MD Work Phone: noms CI FMComment on above:Routine general medical examination at health care facility (Primary Dx); ACP (advance care planning); 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, without long-term current use of insulin, unspecified laterality ([facility]); Prostate cancer screening; Elevated cholesterol ([facility]); Essential (primary) hypertension ([facility]); Stenosis of right carotid artery; Coronary artery disease involving [place] coronary artery of [place] heart without angina pectoris ([facility])Start: 05-16-2024 End: 06-27-6125dvfpiddkraKMIWBL B BERRYNot AvailableStart: 05-16-2024 End: 39-11-1162Wfkwbk Peg Borja MD Work Phone: noMS CI FMStart: 05-16-2024 End: 33-22-6224Nnbncn Peg Borja MD Work Phone: NOMS CI FMStart: 04-19-2024 End: 76-82-0826unvqgtngzkPupzfdsv Brink PTANOMS CI PTComment on above: Degeneration of intervertebral disc of lumbar region with discogenic back pain (Primary Dx); Low back pain, unspecified back pain laterality, unspecified chronicity, unspecified whether sciatica present; Degeneration of intervertebral disc of lumbar region, unspecified whether pain presentStart: 04-19-2024 End: 11-93-9400Hjzzcn flowsheetMarshall Brink PTANOMS CI PTStart: 04-19-2024 End: 37-78-5334Rpxoin flowsheetMarshall Brink PTANOMS CI PTStart: 04-14-2024 End: 40-60-8902wnuwdvqsdaIvmbxxmm Brink PTANOMS CI PTComment on above: Degeneration of intervertebral disc of lumbar region with discogenic back pain (Primary Dx); Low back pain, unspecified back pain laterality, unspecified chronicity, unspecified whether sciatica present; Degeneration of intervertebral disc of lumbar region, unspecified whether pain presentStart: 04-14-2024 End: 30-95-3507Yikfkt flowsheetMarshall Brink PTANOMS CI PTStart: 04-14-2024 End: 25-93-1572Iudvis flowsheetMarshall Brink PTANOMS CI PTStart: 04-12-2024 End: 68-88-3025olfdfcksqoEfhxyfzp Brink PTANOMS CI PTComment on above: Degeneration of intervertebral disc of lumbar region with discogenic back pain (Primary Dx); Low back pain, unspecified back pain laterality, unspecified chronicity, unspecified whether sciatica present; Degeneration of intervertebral disc of lumbar region, unspecified whether pain presentStart: 04-12-2024 End: 32-31-5755Txowas flowsheetMarshall Brink PTANOMS CI PTStart: 04-12-2024 End: 63-53-7764Orqnwp flowsheetMarshall Brink PTANOMS CI PTStart: 04-07-2024 End: 14-06-0017Xqeqnt flowsheetMarshall Brink PTANOMS CI PTStart: 04-07-2024 End: 72-40-5696Lrzaoh flowsheetMarshall Brink PTANOMS CI PTStart: 04-07-2024 End: 31-22-8131whjmmhvhfjKgxezacj Brink PTANOMS CI PTComment on above: Degeneration of intervertebral disc of lumbar region with discogenic back pain (Primary Dx); Low back pain, unspecified back pain laterality, unspecified chronicity, unspecified whether sciatica present; Degeneration of intervertebral disc of lumbar region, unspecified whether pain presentStart: 04-05-2024 End: 93-02-4359nbjldyprxzAibvcdfj Brink PTANOMS CI PTComment on above: Degeneration of intervertebral disc of lumbar region with discogenic back pain (Primary Dx); Low back pain, unspecified back pain laterality, unspecified chronicity, unspecified whether sciatica present; Degeneration of intervertebral disc of lumbar region, unspecified whether pain presentStart: 04-05-2024 End: 97-12-1706Ewslbf flowsheetMarshall Brink PTANOMS CI PTStart: 04-05-2024 End: 55-30-7732Uipggj flowsheetMarshall Brink PTANOMS CI PTStart: 03-31-2024 End: 11-97-5614dtalcngmbmZvbvzys Andreay PTANO CI PTComment on above: Degeneration of intervertebral disc of lumbar region with discogenic back pain (Primary Dx); Low back pain, unspecified back pain laterality, unspecified chronicity, unspecified whether sciatica present; Degeneration of intervertebral disc of lumbar region, unspecified whether pain presentStart: 03-31-2024 End: 75-94-6008Nkhuwu flowsheetClarisa Siddiqui PTANO CI PTStart: 03-31-2024 End: 85-48-7083Ufdpma flowsheetClarisa Siddiqui PTANOMS CI PTStart: 03-29-2024 End: 39-81-0427ybazuohlcuIujnxz Chelsey Heliae PT Work Phone: noms CI PTComment on above:Degeneration of intervertebral disc of lumbar region with discogenic back pain (Primary Dx); Low back pain, unspecified back pain laterality, unspecified chronicity, unspecified whether sciatica present; Degeneration of intervertebral disc of lumbar region, unspecified whether pain presentStart: 03-29-2024 End: 99-52-8325Jtkocb trueAnthemJuniorbritta Chelsey Heliae PT Work Phone: noms CI PTStart: 03-29-2024 End: 33-03-1262Svhtoc trueAnthemNoam Barbosa Heliae PT Work Phone: noms CI PTStart: 03-23-2024 End: 53-00-4403vmnighiophTsdbgylc Brink PTANOMS CI PTComment on above: Degeneration of intervertebral disc of lumbar region with discogenic back pain (Primary Dx); Low back pain, unspecified back pain laterality, unspecified chronicity, unspecified whether sciatica present; Degeneration of intervertebral disc of lumbar region, unspecified whether pain presentStart: 03-23-2024 End: 18-65-1347Pzkoqf flowsheetMarshall Brink PTANOMS CI PTStart: 03-23-2024 End: 82-37-2293Tmcoog flowsheetMarshall Brink PTANOMS CI PTStart: 03-15-2024 End: 38-31-5053zzdgrnrnurMudczc T Blackston PT Work Phone: NOMS CI PTComment on above:Degeneration of intervertebral disc of lumbar region with discogenic back pain (Primary Dx); Low back pain, unspecified back pain laterality, unspecified chronicity, unspecified whether sciatica present; Degeneration of intervertebral disc of lumbar region, unspecified whether pain presentStart: 03-15-2024 End: 48-05-5723Hgoieh Annalee Ortiz PT Work Phone: NOMS CI PTStart: 03-15-2024 End: 29-03-6823Rtjazz Annalee Ortiz PT Work Phone: noMS CI PTStart: 03-14-2024 End: 08-63-7703Eyzxpn Peg Borja MD Work Phone: NOMS CI FMStart: 03-14-2024 End: 39-00-9608Xlsgkt Peg Borja MD Work Phone: NOMS CI FMStart: 03-14-2024 End: 02-24-3364Xaupor outpatient visit 10 minuteslillian Borja MD Work Phone: NOMS CI FMComment on above:Acute cystitis with hematuria (Primary Dx); DysuriaStart: 03-14-2024 End: 84-84-9966zebhtawmmgJGQGWG B BERRYNot AvailableStart: 03-07-2024 End: 41-58-5655Nlymtvh encounter procedureWeston Borja MD Work Phone: NOMS CI FMComment on above:DysuriaStart: 03-07-2024 End: 40-80-4812cfsuvyagrgLBZQH HEMMERNot AvailableStart: 03-03-2024 End: 21-02-8507zbesrjqfuoDaxuybsf Brink PTANOMS CI PTComment on above: Degeneration of intervertebral disc of lumbar region with discogenic back pain (Primary Dx); Low back pain, unspecified back pain laterality, unspecified chronicity, unspecified whether sciatica presentStart: 03-03-2024 End: 53-28-7770Yoikda flowsheetSybil Brink PTANOMS CI PTStart: 03-03-2024 End: 37-65-7426Zysrwk flowsheetNancyshall Brink PTANOMS CI PTStart: 02-25-2024 End: 28-17-1659Ddrcav flowsheetNancyshkishore Brelizabeth PTANOMS CI PTStart: 02-25-2024 End: 93-45-0058Blscpf flowsheetNancyshall Brelizabeth PTANOMS CI PTStart: 02-25-2024 End: 79-80-4452btbutgcljiIfteoowq Brink PTANOMS CI PTComment on above: Degenerative disc disease, lumbar (Primary Dx); Low back pain, unspecified back pain laterality, unspecified chronicity, unspecified whether sciatica presentStart: 02-22-2024 End: 12-70-1021ohcbvsvwmpYmkcrvoi Brink PTANOMS CI PTComment on above: Degenerative disc disease, lumbar (Primary Dx); Low back pain, unspecified back pain laterality, unspecified chronicity, unspecified whether sciatica presentStart: 02-22-2024 End: 76-68-0198Erjycc flowsMilka Brelizabeth PTANOMS CI PTStart: 02-22-2024 End: 63-82-4516Eolaox flowsheetSybil Brelizabeth PTANOMS CI PTStart: 02-16-2024 End: 23-26-8916Ffbsss Annalee Ortiz PT Work Phone: noMS CI PTStart: 02-16-2024 End: 42-87-0010Qjnwll Annalee Ortiz PT Work Phone: noMS CI PTStart: 02-16-2024 End: 00-09-0518bomxipxgheUvhrtxKalina Ortiz PT Work Phone: noMS CI PTComment on above:Degenerative disc disease, lumbar; Low back pain, unspecified back pain laterality, unspecified chronicity, unspecified whether sciatica presentStart: 12-08-2023 End: 97-24-3655Ltxedsp encounter procedureFirelands Physician Group-[facility] Vascular Surgery Work Phone: Start: 59-17-2014Kyval Larry Palomino MD Work Phone: noms [facility] NEURO 210Start: 75-17-3212Rv Ebony Borja Work Phone: [phone]-Ufrsu [facility] [address] DO Work Phone: Start: 01-13-2023 End: 74-07-6164lygfxmzhybUdymnkn R NILLFacility: BellevueStart: 01-13-2023 End: 79-70-7252Zscokpk encounter procedureMichael R NILL General Surgery Nill/Said [place] Start: 12-26-2022 End: 83-63-8390yqafobxfctCwwymng R NILLFacility: BellevueStart: 12-26-2022 End: 38-13-3411Htsphwk encounter procedureMichael R NILL General Surgery Nill/Said [place] Start: 12-17-2022 End: 23-40-8050xzxwtcessmOahlcad R NILLFacility: ueStart: 12-17-2022 End: 22-44-6048Nrkgzwh encounter procedureMichael R NILL General Surgery Nill/Said [place] Start: 12-10-2022 End: 26-71-7353thaqlqulnvDqpwlij R NILLFacility::[id number]: 11-18-2022 End: 88-47-6158rumyvpuvocGlwfalc R NILLFacility: LeCabueStart: 11-18-2022 End: 31-27-0369Whmukkn encounter procedureMichael R NILL General Surgery Nill/Said [place] Start: 10-01-2022 End: 65-52-7665hgtzpbrufjPshlcpc R NILLFacility:[facility]art: 10-01-2022 End: 61-37-3659Dmksodx encounter procedureMichael R NILL General Surgery Nill/Said [place] Start: 09-26-2022 End: 80-84-8926sndamtavmaPX WESTON JENNIFERFacility:D0Pssvr: 76-15-2526ryjzbkcskg WESTON BORJAFacility:[facility] Centertart: 59-75-9323kncjueppizXjnwad José Borja IIFacility:92515Lkvzx: 08-17-2022 End: 91-77-5337ytcbkuafjtFJKJW PARKERFacility:N3Drfrk: 08-02-2022 End: 39-59-0901ebbjpgqmfoIF WESTON JENNIFERFacility:D8Qbaoq: 07-19-2022 End: 09-70-7241thedkcgkvuPPHXB PARKERFacility:U8Jtkfp: 07-18-2022 End: 68-07-3865zmmhzsliwgAG WESTON JENNIFERFacility:F2Kjbbm: 14-70-5763Tyhucqzwu for general adult medical examination without abnormal findingsANTHONY TESORAL [facility] HospitalStart: 01-14-2022 End: 16-76-5167ynjshvjewiLWVKUMF TESMONDFacility:F8Rbjxb: 01-14-2022 End: 81-33-9846Izisdcapa for general adult medical examination without abnormal findingsANTHONY TESMONDFacility:G4Vppnr: 12-25-2021 End: 35-08-8474kzzoqyquhjFPAGNOZ TESMONDFacility:E8Genmt: 11-12-2021 End: 15-08-4452stkczzztesVcqwbi Ruttino Other [place] Other Start: 24-41-2905Jqdapm-up encounterJudith CoulterPG Vascular Surgery Procedures DateProcedureProcedure DetailPerforming ClinicianStart: 32-76-0474Bi orbit sella/post fossa/ear w/o & w/contr matrGeneric External Data ProviderStart: 81-65-0467Vuirddtzlv glycosylated s2lXavbxplillian Borja MD Work Phone: Start: 74-09-0807Ugyedvtyfm glycosylated n3xAniwjwlillian Borja MD Work Phone: Start: 68-43-5940Gusyqis impacted cerumen instrumentation Ari DERAS Work Phone: Start: 35-27-5006Uatukeqghj glycosylated c0vMjjnxcmichele Borja MD Work Phone: Start: 91-67-3233Ycdkn dip stick/tablet rgnt non-auto w/o micrscpDanimichele Borja MD Work Phone: Start: 41-15-5401Eqspsl of left inguinal herniaMichael NILL Start: 13-36-5543YqkscApmugzg NILL CircumcisionMichael NILL CircumcisionDaniel Paxton Borja Work Phone: Introduction of catheter into carotid arteryWeston Borja Work Phone: TonsillectomyMichael NILL Tonsillectomy and adenoidectomyDalillian Borja Work Phone: NEGATED: Highlighted row has not occurred!Total colonoscopyDalillian Borja Work Phone: Plan of Treatment DateCare ActivityDetailAuthorStart: 52-33-5810Ioedmyeql for malignant neoplasm of colonNOMS HealthcareStart: 05-19-2026Medicare Annual Wellness (AWV)Medicare Annual Wellness (AWV)NOMS HealthcareStart: 05-23-2025 End: 13-11-4387Hvdbygb encounter mbdqepudn24/23/2025 2:20 PM EST Office Visit [facility] [place] [facility] [address] [place] [address] Antwon Estrada MD [address] [facility] [address] [place] [address] NOMJerry Thorne OtolaryngologyStart: 05-17-2025 End: 78-17-3082Sufogulg Jzslkcy0005/17/2025 1:00 PM EST Clinical Support [facility] [place] [facility] [address] [facility] [address] [place], [id number] Candcie Hickman, [facility] [address] [place] [address] NOMJerry Thorne AudiologyStart: 12-16-2025Medicare Annual Wellness (AWV)Medicare Annual Wellness (AWV)NOMS HealthcareStart: 05-16-2025 Pneumococcal Vaccine: 65+ Years (1 of 2 - PCV)Pneumococcal Vaccine: 65+ Years (1 of 2 - PCV)NOMS HealthcareComment on above:Postponed from 1954 (Patient Refused)Postponed from 1967 (Patient Refused)Start: 04-40-7631Ebvdkvxthm A1c measurementDiabetes: Hemoglobin G7VUKWQ HealthcareStart: 05-02-2025 End: 68-28-8869Klsafan encounter hujnrsfyf66/02/2025 1:30 PM EST Office Visit N[facility] [address] [place] [address] Joaquín Ghosh DO [address] [place] [address] N[facility]S [facility] EyeStart: 03-29-2025 End: 09-37-4620Evaihdf encounter jawmqfbru66/29/2025 1:30 PM EDT Office Visit [facility] [address] [facility] [address] [place] [id number] Antwon Estrada MD [address] [facility] [address] [place] [address] NOMS [place] OtolaryngologyStart: 03-07-2025 End: 56-99-7663Zktrxhz encounter uyuwjdsth32/07/2025 2:00 PM EDT Office Visit N[facility] [address] [place] [id number] Joaquín Ghosh DO [address] [place] [address] N[facility]S [facility] EyeStart: 03-06-2025 End: 50-11-6310Ykrhdcg encounter lsxpakicz29/06/2025 3:45 PM EDT Office Visit [facility] [place] [facility] [address] [facility] [address] [place] [address] Weston Borja MD [address] [facility] [address] [place] [address] NOMJerry Victor MedinceStart: 02-21-2025 End: 01-48-5348Ujqaklx encounter zgeiytepy71/23/2025 2:00 PM EDT Office Visit [facility] [place] [facility] [address] [facility] [address] [place] [address] Antwon Estrada MD [address] [facility] [address] [place] [address] Allergic rhinitis, unspecified seasonality, unspecified trigger; Chronic dysfunction of right eustachian tube NOMS [place] OtolaryngologyComment on above:Allergic rhinitis, unspecified seasonality, unspecified trigger; Chronic dysfunction of right eustachian tubeStart: 02-13-2025 End: 22-58-1075Sbmxbzg encounter procedureNOMS [place] Victor MedinceComment on above:ArrivedStart: 02-13-2025 End: 80-80-1458Smrgrhptv (Vitamin B12) [Mass/volume] in Serum or PlasmaVitamin B12 Lab Routine Idiopathic progressive neuropathy Expected: 02/13/2025 (Approximate), Expires: 02/13/2026[facility] Work Phone: Comment on above:Expected: 02/13/2025 (Approximate), Expires: 02/13/2026Start: 02-13-2025 End: 18-05-0203Hthzyim J0Bkqqypt B1 Lab Routine Idiopathic progressive neuropathy Expected: 02/13/2025 (Approximate), Expires: 02/13/2026NOMN HealthcareComment on above:Expected: 02/13/2025 (Approximate), Expires: 02/13/2026Start: 02-13-2025 End: 61-17-9891Xjyozjj W7Gpszqdv B6 Lab Routine Idiopathic progressive neuropathy Expected: 02/13/2025 (Approximate), Expires: 02/13/2026NOMN HealthcareComment on above:Expected: 02/13/2025 (Approximate), Expires: 02/13/2026Start: 68-61-9172Eujfvgwiz vaccinationNOMN HealthcareStart: 01-17-2025 Hemoglobin A1c measurementDiabetes: Hemoglobin K8ELWWK HealthcareStart: 01-12-2025 End: 30-45-6938Ywnsskh encounter gelyxmqrn72/14/2025 2:00 PM EDT Office Visit NOM[facility] [place] [facility] Medince [address] [facility] [address] [place] [address] Merry Jacques GUN PERFORATOR [address] [facility] [address] [place] [address] ArrivedNOMS [place] Family MedinceComment on above:ArrivedStart: 12-01-2024 End: 89-30-1344Apyqhuc encounter fcmykhqwc15/03/2025 11:30 AM EDT Office Visit [facility] [address] [facility] [address] [place] [address] Weston Borja MD [address] [facility] [address] [place] [address] ArrivedNOMS CI FMComment on above:ArrivedStart: 10-17-2024 End: 29-57-7554Ywruosh encounter procedureNOMS CI FMComment on above:Arrived Start: 10-17-2024 End: 49-57-2216VklldzusMjriedvw Lab Routine Chronic fatigue Expected: 10/17/2024 (Approximate), Expires: 10/17/2025NOMS HealthcareComment on above:Expected: 10/17/2024 (Approximate), Expires: 10/17/2025Start: 10-17-2024 End: 08-84-2564Qemxgkwmioqp, total and freeTestosterone, total and free Lab Routine Chronic fatigue Expected: 10/17/2024 (Approximate), Expires: 10/17/2025 NOMS HealthcareComment on above:Expected: 10/17/2024 (Approximate), Expires: 10/17/2025Start: 10-17-2024 End: 10-55-7596Yvmoqgnmpyq [Units/volume] in Serum or PlasmaTSH Lab Routine Chronic fatigue Expected: 10/17/2024 (Approximate), Expires: 10/17/2025NOMS HealthcareComment on above:Expected: 10/17/2024 (Approximate), Expires: 10/17/2025Start: 10-17-2024 End: 25-71-1706Pomixponi (T4) free [Mass/volume] in Serum or PlasmaT4, free Lab Routine Chronic fatigue Expected: 10/17/2024 (Approximate), Expires: 10/17/2025 [facility] Work Phone: Comment on above:Expected: 10/17/2024 (Approximate), Expires: 10/17/2025Start: 10-17-2024 End: 65-39-2109Kixwaqijmtdbeccq (T3) Free [Mass/volume] in Serum or PlasmaT3, free Lab Routine Chronic fatigue Expected: 10/17/2024 (Approximate), Expires: 10/17/2025NOMS HealthcareComment on above:Expected: 10/17/2024 (Approximate), Expires: 10/17/2025Start: 10-12-2024 End: 65-35-9017Jgphqjj encounter fdfmimguw67/14/2025 2:00 PM EDT Office Visit [facility] [address] [place] [address] Tita Westbrook PA [address] [place] [address] ArrivedNOMS CI FMComment on above:ArrivedStart: 08-22-2024 End: 98-95-0593Dwkjeim encounter jzybpnnsx40/24/2025 2:00 PM EDT Office Visit [facility] [address] [place] [address] Weston Borja MD [address] [place] [address] ArrivedNOMS CI FMComment on above:ArrivedStart: 08-14-2024 Hemoglobin A1c measurementDiabetes: Hemoglobin L9CHBGA HealthcareStart: 07-22-2024 End: 96-50-9380Bupclvd encounter cnunywrmu70/21/2025 10:15 AM EST Office Visit [facility] [address] [place] [address] Weston Borja MD [address] [place] [address] [facility] CI FMStart: 07-18-2024 End: 94-67-4342Cmvfphw encounter uoievnwam12/17/2025 2:30 PM EST Office Visit [facility] [address] [place] [address] Weston Borja MD [address] [place] [address] ArrivedNOMS CI FMComment on above:ArrivedStart: 07-17-2024 Urine screening for proteinDiabetes: Urine Protein ScreeningNOMN Healthcare Start: 32-42-8262Uuuajjkag vaccinationInfluenza Vaccine (#1)[facility] Comment on above:Postponed from 01/31/2024 (Patient Refused)Start: 06-29-2024 End: 56-54-4479Ymcycds encounter txnxxuije78/29/2025 3:00 PM EST Office Visit [facility] [address] [place] [address] Tita Westbrook PA [address] [place] [address] ArrivedNOMS CI FMComment on above:ArrivedStart: 05-16-2024 End: 65-97-2662Izkyfel encounter procedureNOMS CI FMComment on above:Arrived Start: 05-16-2024 End: 95-12-1122Bbjdnljuuepmz metabolic 2000 panel - Serum or PlasmaComprehensive metabolic panel Lab Routine 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, without long-term current use of insulin, unspecified laterality (CMS/HCC) Essential (primary) hypertension (CMS/HCC) Expected: 05/16/2024 (Approximate), Expires: 05/16/2025NO HealthcareComment on above:Expected: 05/16/2024 (Approximate), Expires: 05/16/2025Start: 05-16-2024 End: 12-48-7054Pwkxr 1996 panel - Serum or PlasmaLipid panel Lab Routine 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, without long-term current use of insulin, unspecified laterality (CMS/HCC) Elevated cholesterol (CMS/HCC) Expected: 05/16/2024 (Approximate), Expires: 05/16/2025 HealthcareComment on above:Expected: 05/16/2024 (Approximate), Expires: 05/16/2025Start: 05-16-2024 End: 35-52-8192QQH W/REFLEX TO FT4TSH W/REFLEX TO FT4 Lab Routine 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, without long-term current use of insulin, unspecified laterality (CMS/HCC) Expected: 05/16/2024 (Approximate), Expires: 05/16/2025NO HealthcareComment on above:Expected: 05/16/2024 (Approximate), Expires: 05/16/2025Start: 04-22-2024 Medicare Annual Wellness (AWV)Medicare Annual Wellness (AWV)[facility] Start: 04-20-2024 End: 16-17-6853Emodbvn encounter gvhjgncuq87/20/2024 2:00 PM EST Office Visit [facility] [address] [place] [id number] Joaquín Ghosh DO [address] [place] [address] [facility] NB OPHTStart: 04-19-2024 End: 59-74-0869yikmbrzmxpIUEA CI PTComment on above:ArrivedStart: 04-14-2024 End: 86-07-1034kbnmmmwque64/14/2024 2:30 PM EST Treatment [facility] [address] [place] [address] Sybil Garcia, SUBSURFACE AUGMENTEE OPERATOR [facility] PTStart: 04-12-2024 End: 11-55-2727xptdubrnul53/12/2024 3:30 PM EST Treatment [facility] [address] [place] [address] Sybil Garcia, SUBSURFACE AUGMENTEE OPERATOR [facility] PTStart: 04-07-2024 End: 40-97-9990sbsyebplzsNIPA CI PTComment on above:ArrivedStart: 04-06-2024 Glaucoma screeningDiabetes: Retinopathy ScreeningNOMS HealthcareStart: 04-05-2024 End: 42-23-2163wptwzpituq00/05/2024 3:30 PM EST Treatment [facility] [address] [place] [address] Sybil Garcia, SUBSURFACE AUGMENTEE OPERATOR [facility] PTStart: 03-31-2024 End: 74-69-1374tnywbgyzuo71/31/2024 3:30 PM EDT Treatment [facility] [address] [place] [address] Clarisa Siddiqui SUBSURFACE AUGMENTEE OPERATOR [facility] PTStart: 03-29-2024 End: 09-53-1220tlqzlxlbue04/29/2024 2:30 PM EDT Treatment [facility] [address] [place] [address] Alexis Ortiz, PT [address] [place] [address] [facility] CI PTStart: 03-23-2024 End: 63-47-5974xisbwptpbc23/23/2024 4:00 PM EDT Treatment [facility] [address] [place] [address] Sbyil Garcia PTA ArrivedNOMS CI PTComment on above:ArrivedStart: 03-17-2024 End: 08-28-4989nsgbtdynzi09/17/2024 2:30 PM EDT Treatment [facility] [address] [place] [address] Sybil Garcia PTA [facility] CI PTStart: 03-15-2024 End: 92-27-6629scnbsoepjm12/15/2024 2:30 PM EDT Treatment [facility] [address] [place] [address] Alexis Ortiz, PT [address] [place] [address] [facility] CI PTStart: 03-14-2024 End: 93-13-3508Pjgnonq encounter tjwupomfz37/14/2024 1:45 PM EDT Office Visit [facility] [address] [place] [address] Weston Borja MD [address] [place] [address] ArrivedNOMS CI FMComment on above:ArrivedStart: 03-10-2024 End: 95-57-7706xqherkxlvy31/10/2024 2:30 PM EDT Treatment [facility] [address] [place] [address] Sybil Garcia PTA [facility] CI PTStart: 03-08-2024 End: 27-44-8092vedfvmjkzfVECG CI PTStart: 03-03-2024 End: 37-49-2286qjsgcxgnob41/03/2024 2:30 PM EDT Treatment [facility] [address] [place] [address] Sybil Garcia, SUBSURFACE AUGMENTEE OPERATOR [facility] PTStart: 03-01-2024 End: 29-31-8848dargspugox02/01/2024 2:30 PM EDT Treatment [facility] [address] [place] [address] Alexis Ortiz, PT [address] [place] [address] [facility] CI PTStart: 02-25-2024 End: 06-10-3511jsyzwokwzf46/26/2024 1:30 PM EDT Treatment [facility] [address] [place] [address] Sybil Garcia PTA [facility] PTStart: 02-22-2024 End: 11-56-2689zvmaiwiwku57/23/2024 2:00 PM EDT Treatment [facility] [address] [place] [address] Sybil Garcia, NICK [facility] PTStart: 79-79-1687Qbpgguygu vaccinationInfluenza Vaccine (#1)[facility] HealthcareStart: 61-11-1993Vaonnphqqd A1c measurementDiabetes: Hemoglobin A1C [facility] HealthcareStart: 87-05-9396Uftykbhsr vaccinationInfluenza Vaccine (#1)[facility] HealthcareComment on above:Postponed from 01/30/2023 (Patient Refused)Start: 10-28-2023 End: 34-93-0228Wyxqrki encounter hfezfuvsk76/29/2024 2:15 PM EDT Office Visit [facility] [address] [place] [address] Weston Borja MD [address] [place] [address] [facility] CI FMStart: 91-33-4327Wavtuozaus A1c measurementDiabetes: Hemoglobin L4YZBCU HealthcareStart: 2023 End: 52-03-0121Hblyfey encounter yfkdohhak33/05/2024 3:20 PM EST Office Visit [facility] [address] [address] Rosales Palomino MD [address] [id number] [facility]Start: 76-63-5801GXM, Provider: Cosmo Diaz, Status: Pen, Time: 2:00 PMFUV, Provider: Cosmo Diaz, Status: Pen, Time: 2:00 PM-[facility] [address] DO Work Phone: Start: 34-14-8258Fprmd screening for proteinDiabetes: Urine Protein ScreeningKANE COUNTY HUM[facility] RESOURCE SSD HealthcareStart: 31-47-2119Hgishcicyrlj Vaccine: 65+ Years (1 - PCV)Pneumococcal Vaccine: 65+ Years (1 - PCV)[facility] HealthcareStart: 26-26-3244Ypadbrnjplac Vaccine: 65+ Years (1 of 2 - PCV)Pneumococcal Vaccine: 65+ Years (1 of 2 - PCV)[facility] HealthcareStart: 44-56-5548Yyorfjyob for malignant neoplasm of colonNOMN HealthcareCBC W Auto Differential panel - BloodCBC and differential Lab Routine 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 Immunizations Immunization DateImmunizationNotesCare HzjinlddQdzbiqnc85-09-8073DARP-VcM-4 (COVID-19) mRNA BNT-162b2 vaxMichael NILL General Surgery Gzlicnjs21-26-3533BKFR-BoU-7 (COVID-19) mRNA BNT-162b2 vaxMichael NILL General Surgery Wqfvkbcq19-18-3886HENI-QoF-3 (COVID-19) mRNA BNT-162b2 vaxMichael NILL General Surgery BellevueNEGATED: Highlighted row has not occurred!16-85-6886lafkkphvyhfh polysaccharide vaccine, 23 valentPatient ObjectionJakalyan Gibson Other [employer] Other NEGATED: Highlighted row has not occurred!03-03-2017 influenza, seasonal, injectablePatient ObjectionJakalyan Gibson Other [employer] Other Payers DatePayer CategoryPayerPolicy [id number] (Managed Care)[facility] .[id number] 2010Medicare .[id number] [id number] [id number] [id number] [id number] [id number] 1949Unknown [id number] 2.16.840.1.260652.3.57[id number] 2.16.840.1.476791.3.57[id number] 2.16.840.1.071882.3.57[id number] 2.16.840.1.383422.3.57[id number] 2.16.840.1.843859.3.579.2.7[id number] 2.16840.1.382551.3.57[id number] 2.16.840.1.285621.3.57[id number] 2.16.840.1.242663.3.579.[id number] 2.16.840.1.328256.3.57[id number] 2.16840.1.447197.3.579.2.[id number] 2.16.840.1.169732.3.57[id number] 2.16.840.1.762065.3.57[id number] 2.16.840.1.893137.3.57[id number] 2.16.840.1.436655.3.57[id number] 2.16840.1.276909.3.57[id number] 2.16840.1.896255.3.579.[id number] 2.16840.1.084976.3.579.[id number] 2.16840.1.929270.3.579.2.707695-26-7011Jtisehx61703755 2.0.1.609378.3.579.[id number] 2.0.1.302697.3.57[id number] 2.0.1.200090.3.579.2.844106-81-8739Svpdfvb5949232 2.0.1.101697.3.579.2.774523-44-6657Htlyzih3860545 2.0.1.838083.3.579.2.040852-47-0527Vyxeopz4801725 2.0.1.561328.3.579.2.038264-54-6719Udvknnr4876556 2.0.1.059258.3.579.2.993434-31-3259Gmktpjm6532186 2.840.1.125682.3.57[id number] 2.16840.1.393422.3.579.2.399467-84-9056Mmsdnjm4376038 2.0.1.751098.3.579.2.275004-76-4413Gncpqzz5200003 2.16840.1.647098.3.579.2.417401-49-5126Cncsuuw8805875 2.16840.1.989726.3.579.2.787388-47-1319Lipimap5792019 2.160.1.831978.3.579.2.378103-60-6775Ecvkmjj3178103 2.0.1.545826.3.579.2.534018-16-3478Mstlprm2777402 2.0.1.129541.3.579.2.800763-68-5462Xashvjg1781733 2.0.1.381698.3.579.2.185611-03-9081Onyyntw0833123 2..1.354142.3.579.2.471390-08-7629Nkdqsnr0205071 2.0.1.989810.3.579.2.621198-11-7946Ywkcbrz0432404 2.0.1.332313.3.579.2.087438-22-7782Acqmedz7551028 2..1.280869.3.579.2.418498-95-4025Fdyrqoc1707952 2..1.856237.3.579.2.177181-69-9778Kpzdpti9673688 2..1.657105.3.579.2.1259Self-paySelf Pay k12c2tsb-kopu-1426-tfiw-3rl19f361795Hcjvwtj Social History DateTypeDetailFacilityUnknown if ever smokedCurrie Stretchr Other Start: 07-01-2023 End: 46-91-7323Vxr [facility]: 10-01-2022 End: 04-88-0219Jqqjwmv smoking statusNever smoked tobacco (finding)[facility] Surgery BellevueStart: 91-43-5105Pdvuoce smoking statusNeverGeneral Surgery BellevueStart: 07-01-2023 End: 62-95-3471Lyotsp alcohol useSocial alcohol use-[facility] [address] DO Work Phone: Start: 03-51-9433Vjjdaur use and exposureSmokeless tobacco non-userNOMN HealthcareStart: 07-01-2023 End: 71-75-1212Mupywpo intakeEx-drinker (finding)NOM HealthcareStart: 70-34-0707Psywgfv Commentcaffeine: yesNOMS HealthcareStart: 43-96-3863Xrr Assigned At [facility] HealthcareStart: 42-57-4824Wqycnn identityIdentifies as male gender (finding)[facility] Functional Status LkenEcdtvjigmkAzdihrMcqreenj58-82-2098Pmiopyx Health Questionnaire 2 item (PHQ- 2) [Reported][facility] Uugvbzspxl74-42-0488Xsnfazz Health Questionnaire 2 item (PHQ- 2) [Reported][facility] Yoaeeomilb30-83-1786Zfdplko Health Questionnaire 2 item (PHQ- 2) [Reported][facility] Fthfmvkzfz90-03-1833Sejkjdf Health Questionnaire 2 item (PHQ- 2) [Reported][facility] Dhxdpxkmif19-78-6625Hynzbpnokd StatusN/AGeneral Surgery Kzgaagho13-37-4491Vtpeemzder StatusN/AGeneral Surgery [place] Clinical Notes 11-12-2021 to 03-03-2025 Note Date & KidsCsqtIeltvjnq91-07-5664 Telephone encounter Note* Telephone Encounter - BRAEDEN Negron - 03/03/2025 10:44 AM EDT Loratadine sent [facility] Urcvlznzzd64-03-7405 Miscellaneous Notes* Telephone Encounter - BRAEDEN Negron - 03/03/2025 10:44 AM EDT Loratadine sent documented in this encounterCameron Regional Medical CenterJxnzatxxfz10-22-2224 History of Present illness Narrative* Antwon Estrada MD - 02/21/2025 2:00 PM EDT Subjective Patient ID: Frankie De [...] Noted Type 2 diabetes mellitus without complication (HCC) 12/22/2022 Past Medical History: Diagnosis Date Acute recurrent maxillary sinusitis Cataract enlarged prostate prevention Heart attack (HCC) 2006 High cholesterol Hyperlipidemia Nasal mass Neuropathy of foot, unspecified laterality Past Surgical History: Procedure Laterality Date CIRCUMCISION 2014 HERNIA REPAIR Left 12/10/2022 Inguinal with Mesh OTHER SURGICAL HISTORY 2017 carotid stenosis TONSILLECTOMY Allergies Allergen Reactions Ciprofloxacin [...] OME fails to resolve documented in this encounterCameron Regional Medical CenterBmgniznvad07-23-7478 History of Present illness Narrative* Weston Borja MD - 02/13/2025 3:30 PM EDT Images from the original note were not included. Subjective Patient ID: Frankie De Anda is a 74 y.o. male who presents for Diabetes and Hypertension. Diabetes Mellitus Patient presents for follow up of diabetes. Current symptoms include: none. Patient denies foot ulcerations, hypoglycemia , nausea, and vomiting. Evaluation to date has included: fasting blood sugar,fasting lipid panel, hemoglobin A1C, and microalbuminuria. Home sugars: BGs range between 100 and 120. Hypertension Patient is here for follow-up of elevated blood pressure.Blood pressure is well controlled at home.Cardiac symptoms: none. Patient denies chest pain, claudication, fatigue, lower extremity edema, near-syncope, orthopnea, palpitations, paroxysmal nocturnal dyspnea, syncope, and tachypnea. Cardiovasc ular risk factors: advanced age (older than 55 [...] (10 mg) by mouth 3 (three) times aday for 3 days, THEN 1 tablet (10 [...] prevention GERD (gastroesophageal reflux disease) Heart attack ([facility]) 2005 no stents or surgery needed High [...] med changes, Test/Lab Review. documented in this [facility]09-04-2025 Telephone encounter Note* Telephone Encounter - Heather Najera - 02/02/2025 8:27 AM EDT Left detailed message for patient regarding this [facility] CenterLoeirimrlc53-66-7109 Miscellaneous Notes* Telephone Encounter - Heather Najera - 02/02/2025 8:27 AM EDT Left detailed message for patient regarding this * Telephone Encounter - TRISHA ELIZALDE - 02/01/2025 1:32 PM EDT [facility] any [facility]. We don't order them * Telephone Encounter - Heather Najera - 02/01/2025 1:24 PM EDT Patient wondered if he could get some sort of covid test ordered. He didn't know if he could do that here or if it could be ordered else where. documented in this [facility]09-03-2025 Telephone encounter Note* Telephone Encounter - TRISHA ELIZALDE - 02/01/2025 1:32 PM EDT You can buy them at [employer] or any Pharmacy. We don't order them [facility] CenterBroxqatbft89-02-4608 Telephone encounter Note* Telephone Encounter - Heather Dania - 02/01/2025 1:24 PM EDT Patient wondered if he could get some sort of covid test ordered. He didn't know if he could do that here or if it could be ordered else where. [facility] CenterIuwpgxjbch15-01-7585 History of Present illness Narrative* Merry Jacques NP - 01/12/2025 2:00 PM EDT Images from the original note were not included. Subjective Patient ID: Frankie De Anda is a 74 y.o. male who presents for No chief complaint on file.. Frankie presents today for a rash on his arms, chest, upper thighs, back and butt area. The itchingis bad and he things it might be [...] or naproxen while on steroids. If there isno improvement in rash, come back to the [...] No follow-ups on file. documented in this encounterCameron Regional Medical CenterVsjjyuasox77-30-6947 History of Present illness Narrative* Merry Jacques NP - 01/05/2025 3:00 PM EDT Images from the original note were not [...] blood pressures at home and bring in alog with the next visit. He is to follow up in 1 month. He was instructed to monitor his dietary intake. No follow-ups on file. documented in this encounterCameron Regional Medical CenterFterftdbkq95-69-0997 Telephone encounter Note* Telephone Encounter - Weston Borja MD - 12/26/2024 2:17 PM EDT Rx was sent. [facility] CenterEyfxdyvabv19-44-3505 Miscellaneous Notes* Telephone Encounter - Weston Borja MD - 12/26/2024 2:17 PM EDT Rx was sent. * Telephone Encounter - Heather Najera - 12/26/2024 11:59 AM EDT pregabalin (Lyrica) he said its usually 75 but he wondered if he could do 100 mg instead. Ca clark documented in this encounterCameron Regional Medical CenterWbqetjtudx98-31-9615 Telephone encounter Note* Telephone Encounter - Heather Najera - 12/26/2024 11:59 AM EDT pregabalin (Lyrica) he said its usually 75 but he wondered if he could do 100 mg instead. [facility] clark [facility] CenterTqvrzoxbhp97-05-3368 History of Present illness Narrative* Weston Borja MD - 10/17/2024 2:30 PM EDT Images from the original note were not [...] Do you have a medical power of erisa attorney?: Yes Who is your medical power of erisa attorney?: sister Objective : BP 138/86 Pulse [...] POCT Glycated hemoglobin, total Essential (primary) hypertension ([facility]) Chronic fatigue - T4, free; Future - T3, free; Future - TSH; Future - Cortisol; Future - Testosterone, total and free; Future Follow up in about 4 weeks (around 11/14/2024) for Test/Lab Review. No orders of the defined types were placed in this encounter. Electronically signed by Weston Borja MD on October 17, 2024 documented in this encounterCameron Regional Medical CenterQbrxojvwoe09-17-5391 History of Present illness Narrative* BRAEDEN Negron - 10/12/2024 2:00 PM EDT Images from the original note were not [...] for Appointment As Scheduled. documented in this encounterCameron Regional Medical CenterHngikwmhzg02-09-4349 History of Present illness Narrative* Weston Borja MD - 08/22/2024 2:00 PM EDT Images from the original note were not included. Subjective Patient ID: Frankie De Anda is a 74 y.o. male who presents for Hypertension, neuropathy, and Sinusitis. Hypertension Patient is here for follow-up of elevated blood pressure.Blood pressure is well controlled at home.Cardiac symptoms: none. Patient denies chest pain, chest pressure/discomfort, claudication, irregular heart beat, orthopnea, palpitations, paroxysmal nocturnal dyspnea, syncope, and tachypnea. Cardiov ascular risk factors: advanced age (older than 55 for men, 65 for women), hypertension, male gender, and obesity (BMI >= 30 kg/m2). Sinus Pain Patient complains of congestion. Onset of symptoms was 2 weeks ago. Symptoms have been stable sincethat time. Patient is non-smoker. Has tried otc [...] (25 mg) by mouth in the morning and1 capsule (25 mg) in the evening and [...] 10/22/2024) for Routine F/U. documented in this encounterCameron Regional Medical CenterBsfhhysbse28-63-5916 History of Present illness Narrative* Weston Borja MD - 07/18/2024 2:30 PM EST Images from the original note were not included. Subjective Patient ID: Frankie De Anda is a 74 y.o. male who presents for hypertension. Frankie is in today for hypertension, states yesterday his BP was 219/91 and went to [facility]. States they did an EKG, blood work, chest xray, covid swap, urine specimen and all came back clear. States hewas put on clonadine via IV and was told to start taking clondine rx, states he hasn't had a chanceto get rx filled yet though. Is complaining [...] recurrent maxillary sinusitis CAD (coronary artery disease) ([facility]) Cataract Diabetes ([facility]/HCC) enlarged prostate prevention GERD (gastroesophageal reflux disease) [...] 1 week (around 07/25/2024). documented in this encounterCameron Regional Medical CenterAkdgcaaoej47-21-5391 History of Present illness Narrative* BRAEDEN Negron - 06/29/2024 3:00 PM ESTAssociated Order(s): Ear Cerumen Removal Images from the [...] (around 09/27/2024) for Hypertension. documented in this encounterCameron Regional Medical CenterSxxbrqztwe06-25-1111 History of Present illness Narrative* Weston Borja MD - 05/16/2024 3:30 PM EST Images from the original note were not [...] at all Patient Health Questionnaire-2 Score: 0 Gayla Fall Risk History of Falling, Immediate or [...] Do you have a medical power of erisa attorney?: No Objective : BP 130/78 Pulse [...] right carotid artery Coronary artery disease involving coushatta coronary artery of coushatta heart without angina pectoris (CMS/HCC) - CBC and differential Orders Placed This Encounter Procedures POCT Glycated hemoglobin, total Electronically signed by Weston Borja MD on May 16, 2024 documented in this encounterCameron Regional Medical CenterFxvbisnkth34-29-2337 History of Present illness Narrative* Sybil Garcia, SUBSURFACE AUGMENTEE OPERATOR - 04/14/2024 2:30 PM EST Physical Therapy Treatment Visit Patient Name: Frankie [...] on/off for several years. Had PT at [facility] which helped. Had increased pain while walking/standing [...] to be instructed in home exercise program. Corporate Travel Consultant Goals: To be met in 10 weeks Goal 1: Pt to report independence and compliance with home program. Goal 2: Pt. Will report of 2/10 while standing/walking for long periods of time to help improve hisquality of life. Goal 3: Pt. Will demonstrate [...] Please sign below. Date: documented in this encounterCameron Regional Medical CenterAnjtwfhbjo46-32-0238 History of Present illness Narrative* Sybil Garcia PTA - 04/12/2024 2:30 PM EST Physical Therapy Treatment Visit Patient Name: Frankie [...] on/off for several years. Had PT at [facility] which helped. Had increased pain while walking/standing [...] to be instructed in home exercise program. Corporate Travel Consultant Goals: To be met in 10 weeks Goal 1: Pt to report independence and compliance with home program. Goal 2: Pt. Will report of 2/10 while standing/walking for long periods of time to help improve hisquality of life. Goal 3: Pt. Will demonstrate [...] 04/13/2024 1:08 PM EST documented in this encounterCameron Regional Medical CenterIpqugsasqm75-38-7950 History of Present illness Narrative* Alexis Ortiz, PT - 03/29/2024 2:30 PM EDT Physical Therapy Treatment Visit Patient Name: Frankei [...] on/off for several years. Had PT at [facility] which helped. Had increased pain while walking/standing [...] to be instructed in home exercise program. Alf Goals: To be met in 10 weeks Goal 1: Pt to report independence and compliance with home program. Goal 2: Pt. Will report of 2/10 while standing/walking for long periods of time to help improve hisquality of life. Goal 3: Pt. Will demonstrate [...] Please sign below. Date: documented in this encounterCameron Regional Medical CenterUssmwmrspc30-19-6628 History of Present illness Narrative* Alexis Ortiz, PT - 03/15/2024 2:30 PM EDT Physical Therapy Treatment Visit Patient Name: Frankie MARTINEZ Today's Date: 03/15/2024 No diagnosis found. Visit number: 5 Timed Code Treatment Minutes: 45 minutes Total Treatment Time: 60 minutes Time In: 1430 Time Out: 1530 History: Pt. Presents to PT with c/c of central low back and right hip pain. Pain on/off for several years. Had PT at [facility] which helped. Had increased pain while walking/standing [...] exercises today and pt. Tolerated well. Pt. [place] new exercises really helped. Outcome Measure: Rehab Diagnosis: lumbar DDD, right hip OA Short Term Goal: To be met in 2 weeks Goal 1: Pt to be instructed in home exercise program. Alf Goals: To be met in 10 weeks Goal 1: Pt to report independence and compliance with home program. Goal 2: Pt. Will report of 2/10 while standing/walking for long periods of time to help improve hisquality of life. Goal 3: Pt. Will demonstrate [...] Please sign below. Date: documented in this encounterCameron [facility] Medical [id number] History of Present illness Narrative* Weston Borja MD - 03/14/2024 1:45 PM EDT Images from the original note were not [...] No follow-ups on file. documented in this [facility]10-07-2024 History of Present illness Narrative* Michaela Morrell LPN - 03/07/2024 2:15 PM EDT Pt dropped off urine to be checked d/t he feel he may have a UTI. documented in this [facility]07-28-2023 Hospital Discharge instructions Follow Up Care 12/26/2022 14:17:19 With:Dakota AHN MD, SUR Address: [address] [place] [address]- When: only if needed With:Dakota AHN MD, SUR Address: [address] [place] [address]- When: only if needed With:Dakota AHN MD, SUR Address: [address] [place] [address]- When: only if needed General Surgery [place] 05-03-2023 NoteChief Complaint consultation for left inguinal hernia HPI Staff 72 year old male presents on consultation from Dr. Borja for left inguinal hernia. Reports this hasbeen present many years. There has been no [...] swallowing difficulties, no hearing loss, no ear infection(s),no nose bleeds. Cardiovascular: normal blood pressure, no [...] no tenderness, no masses, large left irreducible leftinguinal hernia extending into scrotum, mild edema, no [...] tab(s), Oral, BID, PRN Flonase 0.05 mg/inh [place], 2 spray(s), Nasal, Daily hydrochlorothiazide-losartan 12.5 mg-50 mg Tab, 1 tab(s), Oral, Daily metformin 500 mg Tab, 500 mg= 1 tab(s), Oral, BID Allergies penicillins (Weakness - general) Social History Alcohol - Low Risk, 07/11/2019 Substance Abuse - Denies S (more content not included)...[facility] HospitalComment on above:Result Comment: Electronically Signed By: Dakota AHN MD\.br\Date and Time Signed: 10/01/22 15:06 [id number] Evaluation note * Encounter Date Diagnosis Assessment Notes Treatment Notes Treatment Clinical Notes Oct, Carotid stenosis, bilateral (ICD -10 - I65.23) We reviewed today's carotid duplex studies which are normal. He remains asymptomatic of his carotidocclusive disease and on good medical therapy with use of aspirin and statin medications daily. We will continue to follow him along on a routine basis and see him back in a year with surveillance duplex studies. He knows to call us in the meantime with any issues. [employer] Other Evaluation + Plan note No data available for this section General Surgery [place] Evaluation + Plan note Future Appointments Appointment Date:12/26/2022 02:00:00 PM Scheduled Provider:Dakota AHN MD Location:[facility] Appointment Type: Post Op 15 General Surgery [place] Evaluation + Plan note Future Appointments Appointment Date:01/13/2023 04:00:00 PM Scheduled Provider:Dakota AHN MD Location:[facility] Appointment Type: Post Op 15 General Surgery [place] Evaluation note* Diagnosis Onset Date Resolution Status Carotid stenosis, right acute [facility] Work Phone: Evaluation note* Diagnosis Degeneration of [...] long-term current use of insulin, unspecified laterality ([facility]) Prostate cancer screening Special screening for malignant neoplasm of prostate Elevated cholesterol ([facility]) Pure hypercholesterolemia Essential (primary) hypertension ([facility]/HCC) Unspecified essential hypertension Stenosis of right carotid artery Occlusion and stenosis of carotid artery without mention of cerebral infarction Coronary artery disease involving coushatta coronary artery of coushatta heart without angina pectoris ([facility]) documented in this encounter [facility] [...] encounter [facility]* Diagnosis Primary hypertension ([facility]/HCC)- Primary Unspecified essential hypertension Bilateral impacted cerumen Impacted cerumen Nasal congestion Other diseases of nasal cavity and sinuses Epistaxis documented in this encounter [facility]* Diagnosis Primary hypertension ([facility]/HCC)- Primary Unspecified essential hypertension Diabetic peripheral neuropathy ([facility]) Type II or unspecified type diabetes mellitus with neurological manifestations, not stated as uncontrolled Idiopathic progressive neuropathy documented in this encounter [facility]* Diagnosis Acute sinusitis, recurrence not specified, unspecified location- Primary Primary hypertension (CMS/HCC) Unspecified essential hypertension Diabetic peripheral neuropathy ([facility]) Type II or unspecified type diabetes mellitus [...] long-term current use of insulin, unspecified laterality ([facility]/HCC) Essential (primary) hypertension (CMS/HCC) Unspecified essential hypertension [...] he does not usually take it Medical HistoryHypercholestermiaMedical HistoryInguinal herniaMedical HistoryDM with some neuropahtyMedical HistoryCAD with [place] in 2006-did not have significant amount of cardiac injury at that time and has not had any recurrent symptoms of angina. He continues to follow with Dr. Lamb who treats him medicallyMedical HistoryCVODSurgical [id number] HistoryLt ankle [id number] Surgical Historycarotid endarterectomy right [id number] History Heart [id number] [employer] Other Hospital Discharge instructions No data available for this section General Surgery [place] Progress note No data available for this section General [facility] [place] Reason for visit Narrative* Rehabilitation - Outpatient (Routine) - AuthorizedSpecialtyDiagnoses / ProceduresReferred By Contact Referred To ContactPhysical Therapy Diagnoses Degenerative disc disease, lumbar Low back pain, unspecified back pain laterality, unspecified chronicity, unspecified whether sciatica present Procedures [place] OFFICE/OUTPATIENT [facility] 60 MINUTES Weston Borja MD [address] [facility] [address] [place] [address] Phone: tel: fax: [facility] [address] [facility] [address] [place] [address] Phone: tel: fax: Referral IDStatusReasonStart DateExpiration DateVisits RequestedVisits [id number] Specialty Services Required NOMS HealthcareReason for visit Narrative* Rehabilitation - Outpatient (Routine) - AuthorizedSpecialtyDiagnoses / ProceduresReferred By ContactReferred To ContactPhysical Therapy Diagnoses Degenerative disc disease, lumbar Low back pain, unspecified back pain laterality, unspecified chronicity, unspecified whether sciatica present Procedures [place] THER PX 1/> AREAS EACH 15 MIN NEUROMUSC REEDUCA PHYS/OCC THERAPY SS [place] MANUAL THERAPY TQS 1/> REGIONS EACH 15 MINUTES [place] THERAPEUTIC PX 1/> AREAS EACH 15 MIN EXERCISES Weston Borja MD [address] [facility] [address] [place] [address] Phone: tel: fax: [facility] [address] [address] Phone: tel: fax: Referral IDStatusReasonStart DateExpiration DateVisits RequestedVisits [id number] Specialty Services Required [facility]S HealthcareReason for visit Narrative* Rehabilitation - Outpatient (Routine) - ClosedSpecialtyDiagnoses / ProceduresReferred By ContactReferred To Contact Physical Therapy Diagnoses Degenerative disc disease, lumbar Low back pain, unspecified back pain laterality, unspecified chronicity, unspecified whether sciatica present Procedures [place] THER PX 1/> AREAS EACH 15 MIN NEUROMUSC REEDUCA PHYS/OCC THERAPY SS [place] MANUAL THERAPY TQS 1/> REGIONS EACH 15 MINUTES [place] THERAPEUTIC PX 1/> AREAS EACH 15 MIN EXERCISES Weston Borja MD [address] [facility] [address] [place] [address] Phone: tel: fax: [facility] [address] [facility] [address] [place] [address] Phone: tel: fax: Referral IDStatusReasonStart DateExpiration DateVisits RequestedVisits [id number] Specialty Services Required [facility] Summary Purpose Family History Unknown Family Member Name Dates Details Family history of cardiac di sorder: Mother, Father(V17.49, Z82.49) Status:ActiveFamily history of malignant neoplasm of skin: Sister(V16.8, Z80.8) Status:Active Relationship Condition Age at Onset Recorded Date/T ananth father Heart disease Unknown DeceasedUnknownmotherHeart diseaseUnknownsisterMalignant neoplasmUnknown Advance Directives Advance Directive Response Recorded Date/ [...] section and content) DATE CREATED AUTHOR 11/25/2021 [facility] DATE CREATED AUTHOR AUTHOR'S ORGANIZ ATION 09/04/2022 [facility] DATE CREATED AUTHOR AUTHOR'S ORGANIZ ATION 09/04/2022 [facility] DATE CREATED AUTHOR AUTHOR'S ORGANIZ ATION 10/03/2022 [facility] DATE CREATED AUTHOR AUTHOR'S ORGANIZ ATION 01/14/2023 [facility] DATE CREATED AUTHOR AUTHOR'S ORGANIZ ATION 12/04/2024 [employer] [facility] [employer] DATE CREATED AUTHOR AUTHOR'S ORGANIZ ATION 02/22/2025 [facility] EPIC REASON FOR VISIT (unrecogniz ed section and content) SpecialtyDiagnoses / ProceduresReferred By ContactReferred To ContactPhysical Therapy Diagnoses Degenerative disc disease, lumbar Low back pain, unspecified back pain laterality, unspecified chronicity, unspecified whether sciatica present Procedures [place] OFFICE/OUTPATIENT [facility] 60 MINUTES Weston Borja MD [address] [facility] [address] [place] [address] [facility] [address] [facility] [address] [place] [address] Referral IDStatusReasonStart DateExpiration DateVisits RequestedVisits [id number] Specialty Services Required /[id number]l IDStatusReasonStart Date Expiration DateVisits RequestedVisits [id number] Specialty Services Required [id number] Annual Wellness Visit Subsequent ReasonCommentsURIAdmits about a week ago he started having some nasal congestion and when he blows his nose he is getting greyish/bloody mucous. Would like for you to look at his nasal passages. Symptoms were a little worse yesterday.Reason CommentsHypertensionneuropathySinusitisReasonOnset DateCommentsMed Refill 12/26/2024ReasonCommentsDiabetesHypertensionReasonCommentsAllergic RhinitisEar ProblemRhinitis/chronic RT ET dysfunctionSpecialtyDiagnoses / ProceduresReferred By ContactReferred To ContactOtolaryngology Diagnoses Allergic rhinitis, unspecified seasonality, unspecified trigger Chronic dysfunction of right eustachian tube Procedures [place] OFFICE/OUTPATIENT [facility]DM 60 MINUTES Weston Borja MD [address] [facility] [address] [place] [address] Phone: tel: fax: Antwon Estrada MD [address] [facility] [address] [place] [address] Phone: tel: fax: Referral IDStatusReasonStart DateExpiration DateVisits RequestedVisits [id number] Specialty Services Required /[id number] Change Request Patient Care team informatio n (unrecognized section and content) Team MemberRelationshipSpecialtyStart DateEnd Date Weston Borja MD [address] [place] [address] PCP - [facility]06/01/20 Weston Borja MD [address] [place] [address] PCP - GeneralInternal Medicine10/07/22Thursday, PRECIOUS [employer] [address] [place] [address] Licensed Practical NurseFalaly Medicine07/02/23 Team Status: Active Member Role Status Dates Weston Borja II MD Primary Care Provider Active Team Status: Inactive Member Role Status Dates Melchor Mondragon MD Attending Provider Active S tart: December 08, 2023 End: December 07epi Borja II [facility] ProviderActiveStart: December 08, 2023 End: December 08, 2023Team MemberRelationshipSpecialtyStart DateEnd Date Weston Borja MD [address] [place] [address] PCP - GeneralInternal Medicine10/07/22Team MemberRelationshipSpecialtyStart Date End Date Weston Borja MD [address] [place] [address] PCP - GeneralInternal Medicine10/07/22Team MemberRelationshipSpecialtyStart Date End Date Weston Borja MD [address] [place] [address] PCP - GeneralInternal Medicine10/07/22am MemberRelationshipSpecialtyStart Date End Date Weston Borja MD [address] [place] [address] PCP - GeneralInternal Medicine10/07/22am MemberRelationshipSpecialtyStart Date End Date Weston Borja MD [address] [place] [address] PCP - GeneralInternal Medicine10/07/22am MemberRelationshipSpecialtyStart Date End Date Weston Borja MD [address] [place] [address] PCP - GeneralInternal Medicine10/07/22am MemberRelationshipSpecialtyStart Date End Date Weston Borja MD [address] [place] [address] PCP - GeneralInternal Medicine10/07/22am MemberRelationshipSpecialtyStart Date End Date Weston Borja MD [address] [place] [address] PCP - GeneralInternal Medicine10/07/22am MemberRelationshipSpecialtyStart Date End Date Weston Borja MD [address] [place] [address] PCP - GeneralInternal Medicine10/07/22am MemberRelationshipSpecialtyStart Date End Date Weston Borja MD [address] [place] [address] PCP - GeneralInternal Medicine10/07/22am MemberRelationshipSpecialtyStart Date End Date Weston Borja MD [address] [place] [address] PCP - GeneralInternal Medicine10/07/22am MemberRelationshipSpecialtyStart Date End Date Weston Borja MD [address] [place] [address] PCP - GeneralInternal Medicine10/07/22am MemberRelationshipSpecialtyStart Date End Date Weston Borja MD [address] [place] [address] PCP - GeneralInternal Medicine10/07/22 MemberRelationshipSpecialtyStart Date End Date Weston Borja MD [address] [place] [address] PCP - GeneralInternal Medicine10/07/22 MemberRelationshipSpecialtyStart Date End Date Weston Borja MD [address] [place] [address] PCP - GeneralInternal Medicine10/07/22am MemberRelationshipSpecialtyStart Date End Date Weston Borja MD [address] [place] [address] PCP - GeneralInternal Medicine10/07/22am MemberRelationshipSpecialtyStart Date End Date Weston Borja MD [address] [place] [address] PCP - GeneralInternal Medicine5/9/23Team MemberRelationshipSpecialtyStart Date End Date Weston Borja MD [address] [facility] [address] [place] [address] PCP - GeneralInternal Medicine10/07/22Team MemberRelationshipSpecialtyStart Date End Date Weston Borja MD [address] [place] [address] PCP - GeneralInternal Medicine10/07/22Team MemberRelationshipSpecialtyStart Date End Date Weston Borja MD [address] [facility] [address] [place] [address] PCP - GeneralInternal Medicine10/07/22Team MemberRelationshipSpecialtyStart Date End Date Weston Borja MD [address] [facility] [address] [place] [address] PCP - GeneralInternal Medicine10/07/22 Frankie Irby DO [address] [place] [address] [place] [address] PCP - [employer]1Team MemberRelationshipSpecialtyStart DateEnd Date Weston Borja MD [address] [facility] [address] [place] [address] PCP - GeneralInternal Medicine10/07/22 Frankie Irby DO [address] [facility] [address] [place] [address] PCP - [employer]1/21Team MemberRelationshipSpecialtyStart DateEnd Date Weston Borja MD [address] [facility] [address] [place] [address] PCP - GeneralInternal Medicine10/07/22 Frankie Irby DO [address] [place] [address] PCP - Humana1/121Team MemberRelationshipSpecialtyStart DateEnd Date Weston Borja MD [address] [facility] [address] [place] [address] PCP - GeneralInternal Medicine10/07/22 Frankie Irby DO [address] [facility] [address] [place] [address] PCP - [employer]1/06/21Team MemberRelationshipSpecialtyStart DateEnd Date Weston Borja MD [address] [facility] [address] [place] [address] PCP - GeneralInternal Medicine10/07/22 Frankie Irby DO [address] [facility] [address] [place] [address] PCP - Hum[employer]1/121Team MemberRelationshipSpecialtyStart DateEnd Date Weston Borja MD [address] [facility] [address] [place] [address] PCP - GeneralInternal Medicine10/07/22 Frankie Irby DO [address] [place] [address] PCP - Hum[employer]1/121Team MemberRelationshipSpecialtyStart DateEnd Date Weston Borja MD [address] [place] [address] PCP - GeneralInternal Medicine10/07/22 Frankie Irby DO [address] [place] [address] PCP - Hum[employer]1/121Team MemberRelationshipSpecialtyStart DateEnd Date Weston Borja MD [address] [place] [address] PCP - GeneralInternal Medicine10/07/22 Frankie Irby DO [address] [place] [address] PCP - [employer]1/21Team MemberRelationshipSpecialtyStart DateEnd Date Weston Borja MD [address] [place] [address] PCP - GeneralInternal Medicine10/07/22 Frankie Irby DO [address] [place] [address] PCP - Hum[employer]1/121Team MemberRelationshipSpecialtyStart DateEnd Date Weston Borja MD [address] [place] [address] PCP - GeneralInternal Medicine10/07/22 Weston Borja MD [address] [place] [address] PCP - Hum[employer]1/121Team MemberRelationshipSpecialtyStart DateEnd Date Weston Borja MD [address] [place] [address] PCP - GeneralInternal Medicine10/07/22 Weston Borja MD [address] [place] [address] PCP - [employer]1/06/21Team MemberRelationshipSpecialtyStart DateEnd Date Weston Borja MD [address] [place] [address] PCP - GeneralInternal Medicine10/07/22 Weston Borja MD [address] [place] [address] PCP - [employer]1/06/21Team MemberRelationshipSpecialtyStart DateEnd Date Weston Borja MD [address] [place] [address] PCP - GeneralInternal Medicine10/07/22 Weston Borja MD [address] [place] [address] PCP - [employer]1/06/21Team MemberRelationshipSpecialtyStart DateEnd Date Weston Borja MD [address] [place] [address] PCP - GeneralInternal Medicine10/07/22 Weston Borja MD [address] [place] [address] PCP - [employer]1/06/21Team MemberRelationshipSpecialtyStart DateEnd Date Weston Borja MD [address] [facility] [address] [place] [address] PCP - GeneralB[facility] Cardon [facility] Centernal Medicine10/07/22 Weston Borja MD [address] [facility] [address] [place] [address] PCP - Hum[employer]1 Goals (unrecognized section and content) Goals may [...] BE BASED ON THE PRIMARY CLINICAL RECORDS. [employer] [facility]. provides no warranty or guarantee of the accuracy or completeness of information in this document.
--- NOTE | 2025-03-29 14:40 | ECG_ITS ---
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
--- NOTE | 2025-03-29 14:40 | ED.GENADUL1 ---
HPI HPI - General Adult General Chief complaint: Recheck/Abnormal Lab/Rx Stated complaint: HYPERTENSION Time Seen by Provider: 03/29/25 14:33 Source: patient Mode of arrival: walk-in Limitations: no limitations History of Present Illness HPI narrative: 74-year-old male presents for elevated blood pressure. He has no symptoms. No headache or chest pain or dizziness. He checks his blood pressure every morning and it was high so he took a dose of clonidine as instructed. He is on other blood pressure medication which he has not missed any doses of. He was seen at an ENT doctor's office and his blood pressure was elevated still so he came in here. He states this happens every few months. Related Data Home Medications ?Medication ?Instructions ?Recorded ?Confirmed aspirin 81 mg tablet,delayed 81 mg PO DAILY 12/01/22 01/04/25 release (Adult Aspirin Regimen) carvedilol 12.5 mg tablet 25 mg PO Q12H 12/01/22 03/29/25 fluticasone propionate 50 1 spray intranasal Q12H 12/01/22 01/04/25 mcg/actuation nasal spray,suspension losartan 50 mg-hydrochlorothiazide 1 tab PO QDAY 12/01/22 01/04/25 12.5 mg tablet metformin 1,000 mg tablet 500 mg PO BID 12/01/22 01/04/25 rosuvastatin 5 mg tablet 5 mg PO QDAY 12/01/22 01/04/25 tolterodine 4 mg capsule,extended 4 mg PO Q24H 12/01/22 01/04/25 release 24 hr glimepiride 2 mg tablet 2 mg PO DAILY 01/04/25 01/04/25 pregabalin 100 mg capsule 100 mg PO Q12H 01/04/25 01/04/25 tamsulosin 0.4 mg capsule 0.4 mg PO DAILY 01/04/25 01/04/25 clonidine HCl 0.1 mg tablet mg 03/29/25 Allergies Allergy/AdvReac Type Severity Reaction Status Date / Time Penicillins Allergy muscle Verified 03/29/25 14:22 numbness Opioid HPI Opioid Management Most Recent Opioid Data: Last Pain Scale 4 12/11/22, 09:00 Review of Systems ROS Narrative A ten point review of systems is negative except as noted above. PFSH PFS Medical History (Updated 03/29/25 @ 17:05 by Jean-Pierre Hernandez MD) Incarcerated left inguinal hernia ?K40.30 - Unilateral inguinal hernia, with obstruction, without gangrene, not specified as recurrent (ICD-10) GERD (gastroesophageal reflux disease) ?K21.9 - Gastro-esophageal reflux disease without esophagitis (ICD-10) Elevated PSA ?R97.20 - Elevated prostate specific antigen [PSA] (ICD-10) BPH (benign prostatic hyperplasia) ?N40.0 - Benign prostatic hyperplasia without lower urinary tract symptoms (ICD-10) Neuropathy ?G62.9 - Polyneuropathy, unspecified (ICD-10) Arthritis ?M19.90 - Unspecified osteoarthritis, unspecified site (ICD-10) COVID-19 ?U07.1 - COVID-19 (ICD-10) Hypertension ?I10 - Essential (primary) hypertension (ICD-10) Myocardial infarction ?I21.9 - Acute myocardial infarction, unspecified (ICD-10) Heart murmur ?R01.1 - Cardiac murmur, unspecified (ICD-10) High cholesterol ?E78.00 - Pure hypercholesterolemia, unspecified (ICD-10) Diabetes ?E11.9 - Type 2 diabetes mellitus without complications (ICD-10) Hernia ?K46.9 - Unspecified abdominal hernia without obstruction or gangrene (ICD-10) Surgical History (Updated 12/10/22 @ 08:10 by Gisselle Nagel) History of circumcision ?Z98.890 - Other specified postprocedural states (ICD-10) S/P carotid endarterectomy ?Z98.890 - Other specified postprocedural states (ICD-10) History of tonsillectomy ?Z90.89 - Acquired absence of other organs (ICD-10) Family History (Updated 12/01/22 @ 11:31 by Jayda Martinez NP) Other Family history of heart disease Family history of hypertension Family history of myocardial infarction Family history of skin cancer Social History (Updated 12/01/22 @ 11:22 by Jayda Martinez NP) Within the past year, how often did you have a drink containing alcohol: monthly or less Smoking status: Never smoker Non-prescribed substance use: denies use Highest level of school completed/degree received: high school graduate Little interest or pleasure in doing things: not at all Feeling down, depressed, or hopeless: not at all Exam Narrative Exam Narrative: Nurses note and vital signs reviewed General:The patient appears well and in no apparent distress.Patient is resting comfortably on cart. Skin:Warm, dry, no pallor noted.There is no rash noted. Head:Normocephalic, atraumatic Eye: Normal conjunctiva, no drainage Ears, Nose, Mouth, and Throat: oral mucosa is moist. Nares patent. Cardiovascular:Regular Rate and Rhythm Respiratory:Patient is in no distress, no accessory muscle use, lungs are clear to auscultation, no wheezing, rales or rhonchi Back:non-tender GI: Soft and nontender Musculoskeletal: The patient has no evidence of calf tenderness, no pitting edema, symmetrical pulses noted bilaterally Neurological:A&O, normal speech Psychiatric:Cooperative Constitutional Vital Signs, click to edit/add: Last Vital Signs Temp 98.6 F 03/29/25 14:24 Pulse 56 L 03/29/25 15:11 Resp 20 03/29/25 15:11 BP 150/75 H 03/29/25 16:30 Pulse Ox 97 03/29/25 16:30 O2 Del Method Room Air 03/29/25 14:24 Course Vital Signs Vital signs: Vital Signs Temperature 98.6 F 03/29/25 14:24 Pulse Rate 65 03/29/25 14:24 Respiratory Rate 20 03/29/25 14:24 Blood Pressure 201/101 H 03/29/25 14:24 Pulse Oximetry 100 03/29/25 14:24 Oxygen Delivery Method Room Air 03/29/25 14:24 Temperature 98.6 F 03/29/25 14:24 Pulse Rate 56 L 03/29/25 15:11 Respiratory Rate 20 03/29/25 15:11 Blood Pressure 150/75 H 03/29/25 16:30 Pulse Oximetry 97 03/29/25 16:30 Oxygen Delivery Method Room Air 03/29/25 14:24 Medical Decision Making MDM Narrative Medical decision making narrative: The patient presented with blood pressure elevation. The nurse was able to determine that he did not take his usual blood pressure medication this morning, he only took the clonidine. He was given IV hydralazine with good improvement his blood pressure and he is able to be discharged home. Treatment diagnosis and follow-up were discussed with the patient. Differential Diagnosis Differential Diagnosis: Hypertension, medication noncompliance, acute kidney injury Lab Data Lab results reviewed: Yes I reviewed the patient's lab results Labs: Lab Results 03/29/25 Range/Units 15:05 WBC 7.0 (4.0-11.0) 10^3/uL RBC 5.28 (4.70-6.10) 10^6/uL Hgb 14.8 (14.0-18.0) g/dL Hct 45.4 (42.0-54.0) % MCV 86.0 (80.0-94.0) fL MCH 28.0 (25.9-34.0) pg MCHC 32.6 (29.9-35.2) g/dL RDW 14.3 (11.0-15.0) % Plt Count 178 (150-450) 10^3/uL MPV 8.8 L (9.5-13.5) fL Neut % (Auto) 63.2 (43.0-75.0) % Lymph % (Auto) 24.8 (20.5-60.0) % [place] % (Auto) 8.1 (1.7-12.0) % Eos % (Auto) 2.3 (0.9-7.0) % Baso % (Auto) 0.6 (0.2-2.0) % Neut # (Auto) 4.4 (1.4-6.5) 10^3/uL Lymph # (Auto) 1.7 (1.2-3.8) 10^3/uL [place] # (Auto) 0.6 (0.3-0.8) 10^3/uL Eos # (Auto) 0.2 (0.0-0.7) 10^3/uL Baso # (Auto) 0.0 (0.0-0.1) 10^3/uL Abs Immat Gran (auto) 0.07 H (0.00-0.03) 10^3/uL Imm/Tot Granulo (auto) 1.0 H (0.0-0.5) % Sodium 136 (136-145) mmol/L Potassium 4.5 (3.5-5.1) mmol/L Chloride 101 (98-107) mmol/L Carbon Dioxide 27.9 (21.0-32.0) mmol/L Anion Gap 11.6 BUN 15.0 (7.0-18.0) mg/dL Creatinine 0.95 (0.70-1.30) mg/dL Est GFR ( Amer) >60 (>=60 mL/min/1.73m^2) Est GFR (Non-Af Amer) >60 (>=60 mL/min/1.73m^2) BUN/Creatinine Ratio 15.8 Glucose 141 H (74-106) mg/dL Calcium 9.3 (8.5-10.1) mg/dL ECG Data Attestation: I personally reviewed and interpreted this ECG as follows: (EKG on my interpretation shows sinus rhythm with rate of 56 and no acute change) Critical Care Time Critical Care Time Critical Care Time: Yes Total Critical Care Time: 35 Attestation: Due to the high probability of sudden and clinically significant deterioration in the patient's condition he/she required the highest level of my preparedness to intervene urgently I provided critical care time including documentation time, medication orders and management, reevaluation, vital sign assessment, ordering and reviewing of lab tests, ordering and reviewing of x-ray studies, and admission orders. Aggregate critical care time is 35 minutes including only time during which I was engaged in work directly related to his/her care and did not include time spent treating other patients simultaneously. Discharge Plan Discharge Chief Complaint: Recheck/Abnormal Lab/Rx Clinical Impression: Hypertension Patient Disposition: Home, Self-Care Time of Disposition Decision: 17:04 Condition: Good Prescriptions / Home Meds: No Action glimepiride 2 mg tablet 2 mg PO DAILY pregabalin 100 mg capsule 100 mg PO Q12H tamsulosin 0.4 mg capsule 0.4 mg PO DAILY clonidine HCl 0.1 mg tablet aspirin [Adult Aspirin Regimen] 81 mg tablet,delayed release (DR/EC) 81 mg PO DAILY carvedilol 12.5 mg tablet 25 mg PO Q12H fluticasone propionate 50 mcg/actuation spray,suspension 1 spray INTRANASAL Q12H losartan-hydrochlorothiazide 50-12.5 mg tablet 1 tab PO QDAY metformin 1,000 mg tablet 500 mg PO BID rosuvastatin 5 mg tablet 5 mg PO QDAY tolterodine 4 mg capsule,extended release 24hr 4 mg PO Q24H Print Language: Cymraes Instructions: Hypertension (ED) Additional Instructions: Take your blood pressure medicine tonight at the usual time. Referrals: GERSON RODRIGUEZ [Primary Care Provider, Internal Medicine] - 1 week
[2025-03-29 15:26] LABS: Hematocrit 45.4 % (42.0-54.0); Hemoglobin 14.8 g/dL (14.0-18.0); Immature Granulocytes Abs Auto 0.07 10^3/uL (0.00-0.03); Immature Granulocytes Pct Auto 1.0 % (0.0-0.5); Lymphocytes Absolute Auto 1.7 10^3/uL (1.2-3.8); Mean Corpuscular HGB Conc 32.6 g/dL (29.9-35.2); Mean Corpuscular Hemoglobin 28.0 pg (25.9-34.0); Mean Corpuscular Volume 86.0 fL (80.0-94.0); Platelet Count 178 10^3/uL (150-450); Red Blood Count 5.28 10^6/uL (4.70-6.10); White Blood Count 7.0 10^3/uL (4.0-11.0)
--- NOTE | 2025-03-29 15:26 | PC.NURSE ---
Pt presents to ER for HTN Pt states this happens every so often where he has an episode of HTN though he is taking his medications as directed Pt states he took his BP this morning and it was high so he took his Clonidine as directed, then had a appointment with family doctor where it was even higher After leaving his PCP office patint was concerned and brought himself here Pt has no complaints aside from the HTN and feeling slightly woozy as worded by patient
[2025-03-29 15:31] LABS: Anion Gap 11.6; Blood Urea Nitrogen 15.0 mg/dL (7.0-18.0); Calcium 9.3 mg/dL (8.5-10.1); Carbon Dioxide 27.9 mmol/L (21.0-32.0); Chloride 101 mmol/L (98-107); Estimated GFR (African America >60 (>=60 mL/min/1.73m^2); Estimated GFR (Non-African Ame >60 (>=60 mL/min/1.73m^2); Glucose 141 mg/dL (74-106); Potassium 4.5 mmol/L (3.5-5.1); Sodium 136 mmol/L (136-145)
[2025-03-29] MEDS: HYDRALAZINE HCL 20 MG/ML VIAL 10 MG IVP (15:53)
== END 2025-03-29 17:23 | disposition home or self-care (01) ==
PROVIDERS: Emergency Provider Emergency Medicine; PCP Internal Medicine
DX: I10 Essential (primary) hypertension (principal); Z79.899 Other long term (current) drug therapy
CPT/HCPCS: 36415; 80048; 85025; 93005; 96374; 99285; J0360

== ENCOUNTER 2025-05-09 22:32 | Emergency (ER) | payer MEDICARE, SELFPAY ==
--- OUTSIDE RECORDS SUMMARY | 2025-05-03 13:30 | XMS_ITS | Encounter Summary ---
Author Organization [facility] Address [address] [facility] [place] [address] Care Team Providers Care Press Catcher Name Role Phone Weston Borja MD Primary Care Provider [phone] Weston Borja MD Unavailable [phone] Reason for Visit * ReasonCommentsCataract Encounter Details DateTypeDepartmentCare Team (Latest Contact Info)Bqpwjiwweba07/03/2025 1:30 PM ESTOffice Visit [facility] [address] [place] [id number] Joaquín Ghosh DO [address] [place] [address] Age-related nuclear cataract of both eyes (Primary Dx); Intraoperative floppy iris syndrome (IFIS) Social History Tobacco UseTypesPacks/DayYears UsedDateSmoking Tobacco: NeverSmokeless Tobacco: NeverAlcohol UseStandard Drinks/WeekCommentsNot Currently0 (1 standard drink = 0.6 oz pure alcohol)caffeine: yesPHQ-2AnswerDate RecordedPatient Health Questionnaire-2 [id number] and Gender InformationValueDate RecordedSex Assigned at NqhmaWcbs81/11/2023 10:51 AM EDTLegal HfpQefv6208/13/2022 7:11 PM EDT Gender XaffuufsOvtw35/11/2023 10:51 AM EDTSexual OrientationNot on file documented as of this encounter Progress Notes * Joaquín Ghosh DO - 05/03/2025 1:30 PM EST Images from the original note were not included. Subjective Patient ID: Frankie De Anda is a 74 y.o. male. Chief Complaint Cataract HPI Cataract In both eyes. Associated symptoms include glare and haloes. Severity is moderate. Onset was gradual. Duration of years. Frequency is constant. Context: mid-range vision, near vision and night driving. Since onset it is gradually worsening. Affected activities include night driving. Treatments triedinclude artificial tears and glasses. Response to treatment was no improvement. Comments Pt here for cat eval of both eyes (OU). Pt states that he is not having any blurry vision, but can tell his vision is deteriorating. Pt does states that oncoming traffic is bothersome when he is driving at night. Pt does think his glasses Rx needs updated. Pt is worried about his OS, redness started on Thursday. Not using drops. Pt is also worried about a pain he has gotten in his OD twice, he stated the first time it was almost like a nerve jolt where he saw stars and the second time it was almost like someone stabbed his OD. No pm or dfib No latex Yes flomax Last edited by Joaquín Ghosh DO on 05/03/2025 2:03 PM. Current Outpatient Medications (Ophthalmic Agents) Medication Sig Dispense Refill Izbehpcqpye-Ypcladql-Zgetrzghe 1-0.5-0.075 % solution Administer 1 drop into affected eye(s) in themorning and 1 drop at noon and 1 drop in the evening and 1 drop before bedtime. 10 mL 1 No current facility-administered medications for this visit. (Ophthalmic Agents) Current Outpatient Medications (Other) Medication Sig Dispense Refill aspirin 81 MG EC tablet Take 81 mg by mouth Daily carvedilol (Coreg) 12.5 MG tablet TAKE 1 [...] 45 g 1 No current facility-administered medications for this visit. (Other) Medical History[1] Allergies[2] Review of Systems Constitutional: Negative. HENT: Negative. Eyes: Negative. Respiratory: Negative. Cardiovascular: Negative. Gastrointestinal: Negative. Genitourinary: Negative. Musculoskeletal: Negative. Skin: Negative. Neurological: Negative. Psychiatric/Behavioral: Negative. Hematological: Negative. Endocrine: Negative. Allergic/Immunologic: Negative. Objective Base Eye Exam Visual Acuity (Snellen - Linear) Right Left Dist cc 20/200 20/80 -1 Correction: Glasses Tonometry (Applanation, 2:06 PM) Right Left Pressure 19 19 Pupils Pupils Right PERRL Left PERRL Visual [place] Left Right Full Full Extraocular Movement Right Left Full Full Neuro/Psych Oriented x3: Yes Dilation Both eyes: 1.0% Mydriacyl @ 1:55 PM Additional Tests Keratometry K1 Reston K2 Reston Right 45.25 164 47.50 74 Left 45.00 4 47.25 94 Glare Testing High Right 20/400 Left 20/200 Slit Lamp and Fundus Exam External Exam Right Left External Brow ptosis, Rosacea Brow ptosis, Rosacea Slit Lamp Exam Right Left Lids/Lashes Blepharitis, Dermatochalasis - upper lid, Ptosis Blepharitis, Dermatochalasis - upper lid, Ptosis Conjunctiva/Sclera White and quiet JOHN Cornea Decreased tear film Decreased tear film Anterior Chamber Deep and quiet Deep and quiet Iris Round and reactive Round and reactive Lens 3-4+ Nuclear sclerosis, 1+ Cortical cataract, Vacuoles 3-4+ Nuclear sclerosis, 1+ Cortical cataract, Vacuoles Anterior Vitreous Normal Normal Fundus Exam Right Left Disc Normal Normal Macula Normal Normal Vessels Normal Normal Periphery Normal Normal Refraction Wearing Rx Sphere Cylinder Reston Add Right -7.25 -3.25 161 +2.50 Left -6.75 -1.25 173 +2.25 Manifest Refraction Sphere Cylinder Reston Right -10.00 -6.75 150 Left -10.00 -2.75 017 Final Rx Sphere Cylinder Reston Dist VA Right -7.25 -3.25 155 20/100 Left -6.75 -1.25 180 20/70 Expiration Date: 05/03/2026 Assessment/Plan Age-related nuclear cataract of both eyes - Visually Significant Cataract, OU: I discussed the risks, benefits, alternatives, and expectations of cataract surgery. A complete ophthalmic exam was performed and it was determined that the cataracts were a primary source of vision decline, affecting activities of daily living, necessitating removal. Limited vision post-surgery may occur with pre-existing conditions affecting other areas of the eye or the brain was explained and the patient displayed an understanding. The overall objective is to improve ADLs, not eliminate glasses or restore vision to 20/20. Tests were reviewed - the different lens options were explained including the vhc-bd-bzsywn fees for any upgrades. Intraocular lens (IOL) selection may be altered either prior to or during the procedure based on the doctor's discretion including reverting to a traditional intraocular lens (IOL). They understood that there will exist the potential of glasses prescription need post surgery for near, distance or possibly both. The patient stated a full understanding and a desire to proceed with the procedure. The patient received cataract measurements and had any additional questions answered. - A complete exam was performed including a physical exam: General: AAOx3 and NAD, Lungs: Clear, Heart: RRR, Abdomen: S/NT/ND, Extremities: no pitting edema. - Coordination of care will be shared with Dr. Vidal. Cataract Surgery for OS will take place - 06/05 and OD - 06/19. Intraoperative Floppy Eyelid Syndrome (IFIS): The patient currently or has in the past taken a medication, such as Flomax, that increases the likelihood of encountering IFIS during there case. This condition was discussed with them and precautions will be taken, such as using a Malyugin Ring, during the surgery to stabilize this. However, the risk remains that a complication may occur due to thiscondition. [1] Past Medical History: Diagnosis Date Acute recurrent maxillary sinusitis CAD (coronary artery disease) Cataract Diabetes (HCC) enlarged prostate prevention GERD (gastroesophageal reflux disease) Heart attack (HCC) 2005 no stents or surgery needed High cholesterol Hyperlipidemia Hypertension Nasal mass Neuropathy of foot, unspecified laterality [2] Allergies Allergen Reactions Penicillin V Other Reaction(s): Unknown Penicillins Other Other Reaction(s): Weakness - general documented in this encounter Plan of Treatment DateTypeDepartmentCare Team (Latest Contact Info)Vyprccntkdi79/09/2026 2:30 PM EDTOffice Visit [facility] [address] [facility] [address] [place] [address] Weston Borja MD [address] [facility] [address] [place] [address] documented as of this encounter Procedures Procedure NamePriorityDate/TimeAssociated DiagnosisCommentsIOL BIOMETRY - OU - BOTH KOISHwiqoaz29/03/2025 2:10 PM EST Age-related nuclear cataract of both eyes documented in this encounter Results * IOL Biometry - OU - Both Eyes (CPT 09827) (05/03/2025 2:10 PM EST)Anatomical RegionLateralityModalityHeadOtherSpecimen (Source)Anatomical Location / LateralityCollection Method / VolumeCollection TimeReceived Time Narrative 05/03/2025 2:10 PM EST Diagnosis: Cataract both eyes (OU) Testing Indication: Performed for preop measurements in the determination of an intraocular lens (IOL) for both eyes (OU) ?? Test Reliability: Good quality both eyes (OU) Interpretation: Good measurements for intraocular lens (IOL) calculation purposes. Calculation made for both eyes (OU). ?? Authorizing ProviderResult TypeResult StatusJosam Ghosh DOOPHTH ULTRASOUND Final Result documented in this encounter Visit Diagnoses Diagnosis Age-related nuclear cataract of both eyes- Primary Intraoperative floppy iris syndrome (IFIS) Floppy iris syndrome documented in this encounter Care Teams Team MemberRelationshipSpecialtyStart DateEnd Date Weston Borja MD [address] [facility] [address] [place] [address] PCP - GeneralInternal Medicine10/07/22 Weston Borja MD [address] [address] PCP - [employer]1documented as of this encounter
--- OUTSIDE RECORDS SUMMARY | 2025-05-08 14:00 | XMS_ITS | Encounter Summary ---
Author Organization [facility] Address [address] [place] [address] Care Team Providers Care Financial Analysis Manager Name Role Phone Weston Borja MD Primary Care Provider [phone] Weston Borja MD Unavailable [phone] Reason for Visit * ReasonCommentsHypertensionwould like urine checked for infection Encounter Details DateTypeDepartmentCare Team (Latest Contact Info)Mpdgpdznsim38/08/2025 2:00 PM ESTOffice Visit [facility] [place] [facility] [address] [facility] [address] [place] [phone] Weston Borja MD [address] [facility] [address] [place] [address] Acute cystitis without hematuria (Primary Dx); Idiopathic progressive neuropathy; Essential (primary) hypertension Social History Tobacco UseTypesPacks/DayYears UsedDateSmoking Tobacco: NeverSmokeless Tobacco: NeverAlcohol UseStandard Drinks/WeekCommentsNot Currently0 (1 standard drink = 0.6 oz pure alcohol)caffeine: yesPHQ-2AnswerDate RecordedPatient Health Questionnaire-2 Avufs862Sex and Gender InformationValueDate RecordedSex Assigned at YbrrpSfjq37/11/2023 10:51 AM EDTLegal QrjQccv8008/13/2022 7:11 PM EDT Gender NypdloynBnqj91/11/2023 10:51 AM EDTSexual OrientationNot on file documented as of this encounter Last Filed Vital Signs Vital SignReadingTime TakenCommentsBlood Qucuohrz300/7605/08/2025 2:01 PM EST Kcybt903805/08/2025 2:01 PM ESTTemperature--Respiratory Rate--Oxygen Ggkmztqtte66% 05/08/2025 2:01 PM ESTInhaled Oxygen Concentration--Irnlet80 kg (205 lb) 05/08/2025 2:01 PM WZXUxtsel213.1 cm (5' 5 )05/08/2025 2:01 PM ESTBody [...] mg by mouth Daily) 90 tablet 3 Iqblojluzvt-Fvmhddap-Mcotfjtwu 1-0.5-0.075 % solution Administer 1 drop into [...] Plan of Treatment DateTypeDepartmentCare Team (Latest Contact Info)Miodtlcmqsp07/09/2026 2:30 PM EDTOffice Visit [facility] [address] [facility] [address] [place] [address] Weston Borja MD 112 [facility] 110 [place] [address] documented as of this encounter Procedures Procedure NamePriorityDate/TimeAssociated DiagnosisCommentsPOCT URINALYSIS BISKPYTXAztnwob36/08/2025 3:08 PM EST Acute cystitis without hematuria [...] Location / LateralityCollection Method / VolumeCollection TimeReceived KpniAgqsy25/08/2025 3:08 PM EST Narrative Authorizing ProviderResult TypeResult StatusDanimichele Borja MDPOINT OF CARE TEST ENTER/EDIT ORDERABLESFinal Result documented in this encounter Visit Diagnoses Diagnosis Acute cystitis without hematuria- Primary Idiopathic progressive neuropathy Essential (primary) hypertension Unspecified essential hypertension documented in this encounter Care Teams Team MemberRelationshipSpecialtyStart DateEnd Date Weston Borja MD [address] [place] [address] PCP - GeneralInternal Medicine10/07/22 Weston Borja MD [address] [place] [address] PCP - [employer]1documented as of this encounter
[2025-05-09 22:39] VITALS: BP 207/90; PULSE 69; TEMP 36.7; O2SAT 99; BMI 32.6
--- NOTE | 2025-05-09 23:15 | ED_ITS ---
HPI HPI - General Adult General Chief complaint: Dizziness Stated complaint: BLOOD PRESSURE ISSUE Time Seen by Provider: 05/09/25 23:06 Source: patient Mode of arrival: walk-in Limitations: no limitations History of Present Illness HPI narrative: patient presents complaining of hypertension. No chest pain , headache or dyspnea. Took his usual BP medication at home and his BP remained elevated and so her came in Related Data Home Medications ?Medication ?Instructions ?Recorded ?Confirmed carvedilol 12.5 mg tablet 25 mg PO Q12H 12/01/2205/09 fluticasone propionate 50 1 spray intranasal Q12H 08/2105/09/25 mcg/actuation nasal spray,suspension rosuvastatin 5 mg tablet 5 mg PO QDAY 12/01/22 glimepiride 2 mg tablet 2 mg PO DAILY 01/04/2505/09 pregabalin 100 mg capsule 100 mg PO Q12H 01/04/2511/23 tamsulosin 0.4 mg capsule 0.4 mg PO DAILY 01/04/2502/23 clonidine HCl 0.1 mg tablet mg 03/29/25 Allergies Allergy/AdvReac Type Severity Reaction Status Date / Time Penicillins Allergy muscle Verified 05/09/25 22:39 numbness Opioid HPI Opioid Management Most Recent Opioid Data: Last Pain Scale 4 12/11/22, 09:00 Review of Systems ROS Status of ROS 10 or more systems reviewed and unremark able except as noted in history and below [facility] Medical History (Updated 05/10/25 @ 01:50 by Brett Garduno MD) Incarcerated left inguinal hernia ?K40.30 - Unilateral inguinal hernia, with obstruction, without gangrene, not specified as recurrent (ICD-10) GERD (gastroesophageal reflux disease) ?K21.9 - Gastro-esophageal reflux disease without esophagitis (ICD-10) Elevated PSA ?R97.20 - Elevated prostate specific antigen [PSA] (ICD-10) BPH (benign prostatic hyperplasia) ?N40.0 - Benign prostatic hyperplasia without lower urinary tract symptoms (ICD-10) Neuropathy ?G62.9 - Polyneuropathy, unspecified (ICD-10) Arthritis ?M19.90 - Unspecified osteoarthritis, unspecified site (ICD-10) COVID-19 ?U07.1 - COVID-19 (ICD-10) Hypertension ?I10 - Essential (primary) hypertension (ICD-10) Myocardial infarction ?I21.9 - Acute myocardial infarction, unspecified (ICD-10) Heart murmur ?R01.1 - Cardiac murmur, unspecified (ICD-10) High cholesterol ?E78.00 - Pure hypercholesterolemia, unspecified (ICD-10) Diabetes ?E11.9 - Type 2 diabetes mellitus without complications (ICD-10) Hernia ?K46.9 - Unspecified abdominal hernia without obstruction or gangrene (ICD- 10) Surgical History (Updated 12/10/22 @ 08:10 by Gisselle Nagel) History of circumcision ?Z98.890 - Other specified postprocedural states (ICD-10) S/P carotid endarterectomy ?Z98.890 - Other specified postprocedural states (ICD-10) History of tonsillectomy ?Z90.89 - Acquired absence of other organs (ICD-10) Family History (Updated 12/01/22 @ 11:31 by Jayda Martinez NP) Other Family history of heart disease Family history of hypertension Family history of myocardial infarction Family history of skin cancer Social History (Updated 12/01/22 @ 11:22 by Jayda Martinez NP) Within the past year, how often did you have a drink containing alcohol: monthly or less Smoking status: Never smoker Non-prescribed substance use: denies use Highest level of school completed/degree received: high school graduate Little interest or pleasure in doing things: not at all Feeling down, depressed, or hopeless: not at all Exam Constitutional Vital Signs, click to edit/add: Last Vital Signs Temp 98.2 F 05/10/25 00:19 Pulse 85 05/10/25 00:19 Resp 18 05/10/25 00:19 BP 166/80 H 05/10/25 01:00 Pulse Ox 96 05/10/25 00:35 O2 Del Method Room Air 05/09/25 22:39 Common normals: no apparent distress, average body habitus, oriented x3, no limitations, healthy appearing, alert and well nourished HENIL Common normals: normocephalic and head/scalp atraumatic Eye Common normals: EOMs intact bilaterally and conjunctivae normal Respiratory Common normals: normal respiratory effort, no retractions, no use of accessory muscles and clear to auscultation bilaterally Cardio Common normals: regular rate, regular rhythm, S1 normal heart sound and S2 normal heart sound Extremity Common normals: normal to inspection and full ROM Neuro Common normals: oriented x3, CN's II-XII intact bilaterally, moves all extremities and no focal motor deficits Psych Appearance: grossly normal Course Vital Signs Vital signs: Vital Signs Temperature 98.0 F 05/09/25 22:39 Pulse Rate 69 05/09/25 22:39 Respiratory Rate 19 05/09/25 22:39 Blood Pressure 207/90 H 05/09/25 22:39 Pulse Oximetry 99 05/09/25 22:39 Oxygen Delivery Method Room Air 05/09/25 22:39 Temperature 98.2 F 05/10/25 00:19 Pulse Rate 85 05/10/25 00:19 Respiratory Rate 18 05/10/25 00:19 Blood Pressure 166/80 H 05/10/25 01:00 Pulse Oximetry 96 05/10/25 00:35 Oxygen Delivery Method Room Air 05/09/25 22:39 Medical Decision Making [facility] Narrative Medical decision making narrative: patient asymptomatic presents complaining of HTN. exam WNL. CBC, BMP and troponin WNL. Given one time dose of hydralazine and BP decreased to 155/72. Patient discharged to follow up with his PCP Lab Data Labs: Lab Results 05/09/25 05/10/25 Range/Units 23:25 00:05 WBC 8.5 (4.0-11.0) 10^3/uL RBC 4.68 L (4.70-6.10) 10^6/uL Hgb 13.2 L (14.0-18.0) g/dL Hct 39.5 L (42.0-54.0) % MCV 84.4 (80.0-94.0) fL MCH 28.2 (25.9-34.0) pg MCHC 33.4 (29.9-35.2) g/dL RDW 14.1 (11.0-15.0) % Plt Count 223 (150-450) 10^3/uL MPV 8.9 L (9.5-13.5) fL Neut % (Auto) 66.8 (43.0-75.0) % Lymph % (Auto) 19.7 L (20.5-60.0) % [place] % (Auto) 7.4 (1.7-12.0) % Eos % (Auto) 3.6 (0.9-7.0) % Baso % (Auto) 0.6 (0.2-2.0) % Neut # (Auto) 5.7 (1.4-6.5) 10^3/uL Lymph # (Auto) 1.7 (1.2-3.8) 10^3/uL [place] # (Auto) 0.6 (0.3-0.8) 10^3/uL Eos # (Auto) 0.3 (0.0-0.7) 10^3/uL Baso # (Auto) 0.1 (0.0-0.1) 10^3/uL Abs Immat Gran (auto) 0.16 H (0.00-0.03) 10^3/uL Imm/Tot Granulo (auto) 1.9 H (0.0-0.5) % Sodium 139 (136-145) mmol/L Potassium 4.1 (3.5-5.1) mmol/L Chloride 105 (98-107) mmol/L Carbon Dioxide 30.6 (21.0-32.0) mmol/L Anion Gap 7.5 BUN 11.0 (7.0-18.0) mg/dL Creatinine 0.81 (0.70-1.30) mg/dL Est GFR ( Amer) >60 (>=60 mL/min/1.73m^2) Est GFR (Non-Af Amer) >60 (>=60 mL/min/1.73m^2) BUN/Creatinine Ratio 13.6 Glucose 161 H (74-106) mg/dL Calcium 9.2 (8.5-10.1) mg/dL Troponin I High Sens 6.9 (4.0-76.1) pg/mL Urine Color Lt. yellow (YELLOW) Urine Clarity Clear (CLEAR) Urine pH 6.5 (5.0-9.0) Ur Specific [place] <=1.005 A (1.005-1.025) Urine Protein Negative (NEG/TRACE) mg/dL Urine Glucose (UA) Negative (NEGATIVE) mg/dL Urine Ketones Negative (NEGATIVE) mg/dL Urine Occult Blood Negative (NEGATIVE) Urine Nitrite Negative (NEGATIVE) Urine Bilirubin Negative (NEGATIVE) Urine Urobilinogen 0.2 (0.2-1.0) EU/dL Ur Leukocyte Esterase Trace A (NEGATIVE) Urine RBC None seen (0-2) #/HPF Urine WBC 2-5 A (NONE SEEN) #/HPF Ur Squamous Epith Cells None seen (NONE/RARE) #/LPF Urine Crystals None seen (None Seen) #/HPF Urine Bacteria None seen (NONE SEEN) #/HPF Urine Casts None seen (NONE SEEN) #/LPF Urine Mucus None seen (NONE SEEN) Ur Culture Indicated? No Discharge Plan Discharge Chief Complaint: Dizziness Clinical Impression: Hypertension Patient Disposition: Home, Self-Care Prescriptions / Home Meds: No Action glimepiride 2 mg tablet 2 mg PO DAILY pregabalin 100 mg capsule 100 mg PO Q12H tamsulosin 0.4 mg capsule 0.4 mg PO DAILY clonidine HCl 0.1 mg tablet carvedilol 12.5 mg tablet 25 mg PO Q12H fluticasone propionate 50 mcg/actuation spray,suspension 1 spray INTRANASAL Q12H rosuvastatin 5 mg tablet 5 mg PO QDAY Print Language: Tuvaluan Instructions: Hypertension (ED) Additional Instructions: follow up with your doctor this week Referrals: GERSON RODRIGUEZ [Primary Care Provider, Internal Medicine] - 1 week
[2025-05-09 23:19] VITALS: O2SAT 98
[2025-05-09 23:20] VITALS: BP 170/72; O2SAT 98
--- OUTSIDE RECORDS SUMMARY | 2025-05-09 23:20 | XMS_ITS | CCD ---
Author Organization [facility] Care Team Providers Care Wood Turning Lathe Operator Name Role Phone Judith Gibson Unavailable Weston oBrja II Primary Care Unavail able Emily BARRERA, Dr. Cosmo Torrez Attending Unavailable Emily BARRERA, Dr. Cosmo Torrez Referring Unavailable WESTON BORJA Primary Care Physician [phone] LEONARD ESPITIA Admitting Unavailable JNENIFER, DR NIETO Primary Care Unavailable LEONARD ESPITIA [...] Primary Care Provider Thursday Mercedez LANG Unavailable BettyFrankie laura DO Unavailable Frankie Irby DO Son Unavailable TITA WESTBROOK Attending Unavailable WESTON BORJA Attending Unavailable WESTON BORJA Attending Unavailable WESTON BORJA Attending Unavailable HEMTITA TEMPLE Attending Unavailable WESTON BORJA Attending Unavailable GEORGIEMERRY Attending Unavailable GEORGIEMERRY Attending Unavailable WESTON BORJA Attending Unavailable TIMMIANTWON Edwards H Attending Unavailable WESTON BORJA Referring Unavailable TIMMISANTWON H Attending Unavailable KELBLECLARISA Rodríguez Attending Unavailable WESTON BORJA B Referring Unavailable BRINK, SYBIL Attending Unavailable WESTON BORJA B Referring Unavailable BRINK, SYBIL Attending Unavailable WESTON BORJA B Referring Unavailable BRINK, SYBIL Attending Unavailable WESTON BORJA B Referring Unavailable BRINK, SYBIL Attending Unavailable WESTON BORJA B Referring Unavailable BRINK, SYBIL Attending Unavailable BORJAEDILBERTOEL B Referring Unavailable BORJAWESTON B Attending Unavailable Allergies Allergy ClassificationReported Allergen(s)Allergy TypeDate of OnsetReaction(s) Facility (1 source)Penicillin GDrug AllergyUnknoMissouri Southern Healthcare [employer] Other (20 sources)Penicillins; Translations: [penicillins]Drug [id number] [facility] (finding), [facility] (20 sources)Penicillin VDrug Iwjhgkt19-08-3705[facility] (20 sources)CiprofloxacinDrug Qxgzgri55-44-4964CgiqrUXMD Healthcare Work Phone: Medications Current Medications MedicationDrug Class(es)DatesSig (Normalized)Sig (Original)aspirin 81 mg oral tablet (7 sources)Platelet Aggregation Inhibitor, Nonsteroidal Anti-inflammatory Drug Start: 28-86-0075mxcj 1 tablet by mouth once dailyaspirin 81 [...] oral tablet (2 sources)Macrolide AntimicrobialStart: 08-22-2024 End: 35-54-4897iher 2 tablets by mouth once daily, then [...] PO December 08, 2023 12:00amStart: 10-01-2022 End: 18-27-7761pdstnuqxyn (Coreg) 12.5 MG tablet Indications: Essential (primary) hypertension TAKE 1 TABLET TWICEDAILY 180 tablet 3 04/20/2024 Active Coreg 3.125 MG Orally ActivecloNIDine hydrochloride 0.1 mg oral tablet (20 sources)Central alpha-2 Adrenergic AgonistStart: 02-13-2025 End: 97-31-2377wedu 1 tablet by mouth every eight hours for hypertension cloNIDine (Catapres) 0.1 MG tablet Indications: Essential (primary) hypertension Take 1 tablet (0.1mg) by mouth every 8 (eight) hours if needed for high blood pressure (Take if SBP is > 175) 60 tablet 5 02/13/2025 08/12/2025 Active End: 98-72-2296vhcZBMgpe (Catapres) 0.1 MG tablet Take by mouth 2 (two) times a day 10/17/2024 Discontinued (Therapy completed)fluticasone propionate 0.05 mg/actuat metered dose nasal spray (20 sources)CorticosteroidStart: 09-12-8462ffcx 2 spray(s) nasal route once dailyfluticasone (Flonase) 50 MCG/ACT nasal spray Indications: Lesion of nasal cavity SPRAY 2 SPRAYS INTO EACH NOSTRIL EVERY DAY 16 mL 3 02/21/2025 Active Start: 90-53-2239dbqx 2 spray(s) nasal route once dailyfluticasone (Flonase) 50 MCG/ACT nasal spray Indications: Lesion of nasal cavity SPRAY 2 SPRAYS INTO EACH NOSTRIL EVERY DAY 16 mL 3 07/20/2024 ActiveStart: 10-66-7915cete 2 spray(s) nasal route once dailyfluticasone (Flonase) 50 MCG/ACT nasal spray Indications: Lesion of nasal cavity SPRAY 2 SPRAYS INTO EACH NOSTRIL EVERY DAY 16 mL 1 05/10/2024 ActiveStart: 59-68-4756nbty 2 spray(s) nasal route once daily fluticasone (Flonase) 50 MCG/ACT nasal spray Indications: Lesion of nasal cavity USE 2 SPRAYS IN EACH NOSTRIL EVERY DAY 16 mL 1 12/11/2023 ActiveStart: 40-60-6353Nivywhrzyrj Propionate Active INTRANASAL December 08, 2023 12:00amStart: 08-49-0809sokb 2 spray(s) nasal route once dailyfluticasone (Flonase) 50 MCG/ACT nasal spray Indications: Lesion of nasal cavity INHALE 2 SPRAYS INEACH NOSTRIL EVERY DAY 16 g 3 02/16/2023 ActiveStart: 56-59-8881Gtoebtf 0.05 mg/inh [place] 2 spray(s), Nasal, Daily, Refill(s) 0 Start [...] Activeglimepiride 2 mg oral tablet (20 sources)SulfonylureaStart: 82-59-6126nslhcgzyias (Amaryl) 2 MG tablet Indications: 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, without long-term current use of insulin, unspecified laterality (HCC) TAKE 1 TABLET EVERY DAY 100 tablet 3 03/10/2025 ActiveStart: 33-29-2785Lzqlrkbckpc Active MG PO December 08, 2023 12:00amStart: 04-22-2023 End: 31-07-8642keylzziyvkg (Amaryl) 2 MG tablet Indications: 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 03/07/2025 ActiveStart: 03-03-2025 End: 58-41-2127snvzmtzpexilwx ([place]akov) 0.2 % cream Indications: Eczema, unspecified type Apply topically in themorning and before bedtime. 45 g 1 03/03/2025 03/06/2025 Discontinuedloratadine 10 mg oral tablet (20 sources)Start: 02-08-2025 End: 57-20-4789syha 1 tablet by mouth once dailyloratadine (Claritin) 10 MG tablet Indications: Dysfunction of right eustachian tube TAKE 1 TABLET (10 MG) BY MOUTH DAILY. 90 tablet 3 03/03/2025 ActiveStart: 10-12-2024 End: 37-45-2490ejik 1 tablet by mouth once dailyloratadine (Claritin) 10 MG tablet Indications: Dysfunction of right eustachian tube Take 1 tablet (10 mg) by mouth Daily for 10 days 10 tablet 10/12/2024 ActivemetFORMIN hydrochloride 500 mg oral tablet (7 sources)BiguanideStart: 66-62-1428pamc 1 tablet by mouth twice dailymetformin 500 [...] day Active methylPREDNISolone (2 sources)CorticosteroidStart: 01-12-2025 End: 88-98-1626hkkrjpAKPUQWWziztb (Medrol Dospak) 4 MG tablets Indications: Atopic dermatitis, unspecified type Follow schedule on package instructions 21 tablet 01/12/2025 01/19/2025 Activenitrofurantoin, macrocrystals 25 mg / nitrofurantoin, monohydrate 75 mg oral capsule (4 sources)Nitrofuran AntibacterialStart: 03-16-2024 End: 88-65-6049xpgc 1 capsule by mouth in the morningnitrofurantoin, macrocrystal-monohydrate, (Macrobid) 100 MG capsule Indications: Acute cystitis with hematuria Take 1 capsule (100 mg) by mouth in the morning and 1 capsule (100 mg) before bedtime. Do all this for 7 days. 14 capsule 03/16/2024 03/23/2024 ActiveStart: 03-07-2024 End: 50-73-3400mkpx 1 capsule by mouth in the morningnitrofurantoin, macrocrystal-monohydrate, (Macrobid) 100 MG capsule Indications: Acute cystitis with hematuria Take 1 capsule (100 mg) by mouth in the morning and 1 capsule (100 mg) before bedtime. Do all this for 5 days. 10 capsule 03/07/2024 03/14/2024 DiscontinuedpredniSONE 10 mg oral tablet (8 sources)Start: 02-08-2025 End: 66-42-6901kcrd 1 tablet by mouth three times daily, [...] 18 tablet 02/08/2025 02/17/2025 ActiveStart: 10-12-2024 End: 47-54-0597nuyj 1 tablet by mouth three times daily, [...] mg oral capsule (20 sources)Start: 12-26-2024 End: 39-94-2709hljm 1 capsule by mouth in the morningpregabalin (Lyrica) 100 MG capsule Indications: Diabetic peripheral neuropathy (HCC) Take 1 capsule(100 mg) by mouth in the morning and 1 capsule (100 mg) before bedtime. 60 capsule 5 12/26/2024 06/24/2025 ActiveStart: 07-18-2024 End: 08-79-6611ekhx 1 capsule by mouth in the morning, [...] before bedtime. 07/18/2024 08/22/2024 DiscontinuedStart: 09-02-2023 End: 54-18-5651uxww 1 capsule by mouth in the morning, [...] capsule 2 09/02/2023 05/16/2024 DiscontinuedStart: 05-12-2023 End: 55-53-9500adaj 1 capsule by mouth in the morning, [...] mg oral tablet (20 sources)HMG-CoA Reductase InhibitorStart: 70-30-5051fneavgzkimew (Crestor) 5 MG tablet Indications: Pure hypercholesterolemia, unspecified TAKE 1 TABLET AT BEDTIME 100 tablet 3 03/10/2025 ActiveStart: 11-25-5823Fqnbqftqgznz Active MG PO December 08, 2023 12:00amStart: 04-05-2019 End: 61-00-3026erpmokmtitbv (Crestor) 5 MG tablet Indications: Pure hypercholesterolemia, unspecified TAKE 1 TABLET AT BEDTIME 90 tablet 3 04/20/2024 Activesulfamethoxazole 400 mg / trimethoprim 80 mg oral tablet (2 sources)Dihydrofolate Reductase Inhibitor Antibacterial, Sulfonamide AntimicrobialStart: 01-12-2025 End: 59-00-6818ptjb 1 tablet by mouth oncesulfamethoxazole-trimethoprim (Bactrim) 400-80 MG tablet Indications: Folliculitis Take 1 tablet bymouth every 12 (twelve) hours for 10 days 20 tablet 01/12/2025 01/22/2025 Activetamsulosin hydrochloride 0.4 mg oral capsule (20 sources)alpha-Adrenergic BlockerStart: 22-65-2370Agvbxtdbhs Active MG PO December 08, 2023 12:00amStart: 10-28-2023 End: 29-14-2918lqdv 1 capsule by mouth once dailytamsulosin (Flomax) 0.4 MG 24 hr capsule Indications: BPH with urinary obstruction TAKE 1 CAPSULE BY MOUTH EVERY DAY 90 capsule 3 10/25/2024 Activethiamine 100 mg oral tablet (1 source)Start: 05-12-2023 End: 12-78-2332brkz 1 tablet by mouth in the morningthiamine (Vitamin B-1) 100 MG tablet Indications: Idiopathic progressive neuropathy Take 1 tablet (100 mg) by mouth in the morning. 90 tablet 3 05/12/2023 05/11/2024 Activetolterodine tartrate 2 mg oral tablet (5 sources)Cholinergic Muscarinic AntagonistStart: 44-53-1404fdzg 1 tablet by mouth twice daily as needed for muscle spasmsDetrol 2 mg Tab 2 mg = 1 tab(s), Oral, BID, PRN bladder spasm, Refills(s) 0 Start Date: 09/29/22 Status: Ordered triamcinolone acetonide 5 mg/ml topical cream (10 sources)CorticosteroidStart: 01-22-2158tqknxqrlevpdn (Kenalog) 0.5 % cream Indications: Eczema, unspecified type Apply topically in the morning and before bedtime. 45 g 1 03/06/2025 ActiveStart: 01-12-2025 End: 36-55-6921iqekfgkwwcyym acetonide (Kenalog-40) injection 40 mgStart: 01-12-2025 End: 85-06-7763hkqmxq 40 mg by intramuscular injection once40 mg, Intramuscular, Once, On Delicia 01/12/25 at 1445, For 1 doseStart: 01-12-2025 End: 19-93-9685byfzqtkajbnji acetonide (Kenalog-40) injection 40 mgStart: 01-12-2025 End: 28-55-9529lilllk 40 mg by intramuscular injection once40 mg, Intramuscular, Once, On Delicia 01/12/25 at 1445, For 1 dose Completed/Discontinued Medications MedicationDrug Class(es)DatesSig (Normalized)Sig (Original)furosemide 20 mg oral tablet (20 sources)Loop DiureticStart: 12-10-2023 End: 62-65-9119yjth 1 tablet by mouth once dailyfurosemide (Lasix) 20 MG tablet Indications: Localized edema Take 1 tablet (20 mg) by mouth Daily for 7 days 7 tablet 12/10/2023 05/16/2024 DiscontinuedhydroCHLOROthiazide 12.5 mg / losartan potassium 50 mg oral tablet (20 sources)Thiazide Diuretic, Angiotensin 2 Receptor BlockerStart: 07-18-2024 End: 01-13-8535xxwz 1 tablet by mouth once dailylosartan-hydroCHLOROthiazide (Hyzaar) 50-12.5 MG tablet Indications: Primary hypertension Take 1 tablet by mouth Daily 07/18/2024 02/13/2025 DiscontinuedStart: 97-68-5000tidg 1 tablet by mouth in the morninglosartan-hydroCHLOROthiazide (Hyzaar) 50-12.5 MG tablet Take 1 tablet by mouth in the morning. 0 09/01/2022 ActiveStart: 06-69-6941lpnt 1 tablet by mouth once dailyhydrochlorothiazide-losartan 12.5 mg-50 mg Tab 1 tab(s), Oral, Daily, Refill(s) 0 Start Date: 10/01/22 Status: Ordered Problems Active Problems Problem ClassificationProblemDateDocumented DateEpisodic/ChronicAcute myocardial infarction (20 sources)Myocardial infarction; Translations: [ST elevation (STEMI) myocardial infarction involving other coronary artery of inferior wall]Onset: 892103-79-8969KmwguhjGaoglqnukxehhi/social admission (4 sources)Patient encounter status; Translations: [Other specified counseling] 34-97-9109YbgkujmxLludsszd reactions (2 sources)Atopic dermatitis; Translations: [Atopic dermatitis, unspecified] 61-29-1089GdhafdcSaozidqr reactions (1 source)Eczema; Translations: [Dermatitis, unspecified]56-12-9227Xgibnemd Cardiac dysrhythmias (2 sources)Supraventricular tachycardia; Translations: [Paroxysmal supraventricular tachycardia]Onset: 73-43-8838PzgmltyEjeururj (20 sources)Bilateral age-related nuclear cataracts; Translations: [Age-related nuclear cataract, bilateral]Onset: 348526-29-6941TupibprRcrumyfh atherosclerosis and other heart disease (20 sources)Coronary arteriosclerosis; Translations: [Atherosclerotic heart disease of [place] coronary artery without angina pectoris]Onset: 08-19-2022 99-72-5833DbdnyilJuwvjrfx mellitus with complications (20 sources)Type 2 diabetes mellitus with diabetic mononeuropathy; Translations: [Diabetic peripheral neuropathy]Onset: 947778-21-8081FmfgdlaEszyfcid mellitus without complication (20 sources)Diabetes mellitus; Translations: [Type 2 diabetes mellitus without complications]Onset: 10-02-2022 Resolved: 222406-80-9186OcaoffgMcdwvcszy of lipid metabolism (20 sources)Hypercholesterolemia; Translations: [Mixed hyperlipidemia]Onset: 830648-96-4430OixmdocIwuuqdgdov disorders (20 sources)Gastroesophageal reflux disease; Translations: [Gastro-esophageal reflux disease without esophagitis]Onset: 933895-28-9303MfjjxowJucdmzhyu hypertension (20 sources)Hypertensive disorder; Translations: [Essential (primary) hypertension]Onset: 763221-74-1503ZpzlswnSjdgfoywqlq of prostate (20 sources)Benign prostatic hypertrophy with outflow obstruction; Translations: [Benign prostatic hyperplasia with lower urinary tract symptoms]Onset: 903564-65-6679ZsskwcmHoohhpvtzgga with complications and secondary hypertension (1 source)Hypertensive urgency; Translations: [HYPERTENSIVE URGENCY]Onset: 98-11-0289TmvnlrgChokazp and fatigue (2 sources)Fatigue; Translations: [Chronic fatigue, unspecified]10-17-2024 ChronicNonspecific chest pain (4 sources)Other chest pain; Translations: [OTHER CHEST PAIN]Onset: 08-17-2022 EpisodicOcclusion or stenosis of precerebral arteries (17 sources)Occlusion and stenosis of multiple and bilateral cerebral arteries; Translations: [Occlusion and stenosis of bilateral carotid arteries]Onset: 11-12-2021 Resolved: 57-59-3056YckpnuoBypryrjctbqtty (20 sources)Arthritis of left hip; Translations: [Unilateral primary osteoarthritis, left hip]Onset: 229975-74-2908FqxgqelIjxgg aftercare (1 source)FCI (current) use of aspirin; Translations: [FDC CURRENT USE OF ASPIRIN]Onset: 80-27-2348TlitmedbJmccd aftercare (1 source)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 oral hypoglycemic drugs; Translations: [WIRELESS SALES EXPERT USE ORAL HYPOGLYCEMIC DX]Onset: 60-54-8669TxvajmypLngpg aftercare (1 source)Other half-way (current) drug therapy; Translations: [OTH WIRELESS SALES EXPERT CURRENT DRUG THERAPY]Onset: 75-26-2399HorewkmkIphri circulatory disease (20 sources)Disorder of carotid artery; Translations: [Disorder of arteries and arterioles, unspecified]Onset: 867863-62-8161VjlxmzwAnjur diseases of bladder and urethra (1 source)Overactive bladder; Translations: [OVERACTIVE BLADDER]Onset: 34-01-6693HxsaprxZhgpv diseases of bladder and urethra (20 sources)Overactive bladder; Translations: [Overactive bladder]Onset: 449409-95-9810YlqtahfGihoz ear and sense organ disorders (2 sources)Impacted cerumen of bilateral ears; Translations: [Impacted cerumen, bilateral]12-78-9721AedakmmjIvpgi ear and sense organ disorders (4 sources)Cerebrospinal fluid otorrhea; Translations: [CSF otorrhea]02-21-2025 EpisodicOther nervous system disorders (20 sources)Neuropathy; Translations: [Polyneuropathy, unspecified]Onset: 863144-50-5453FuyoykmRmzmk nervous system disorders (1 source)Peripheral nerve disease ; Translations: [Unspecified hereditary and idiopathic peripheral neuropathy]ChronicOther nutritional; endocrine; and metabolic disorders (20 sources)Body mass index 30+ - obesity; Translations: [Body mass index (BMI) 33.0-33.9, adult]Onset: 423087-66-1392BrgclbzCavdp nutritional; endocrine; and metabolic disorders (4 sources)Obesity, unspecified; Translations: [OBESITY UNSPECIFIED]Onset: 47-43-7304FvwrorgMokvu nutritional; endocrine; and metabolic disorders (20 sources)Obese class I; Translations: [Body mass index (BMI) 33.0-33.9, adult]Onset: 89-53-1636NkknjevQxesd nutritional; endocrine; and metabolic disorders (20 sources)Obesity; Translations: [Obesity, unspecified]Onset: 01-17-2023 80-28-5617LgoogasWpvli skin disorders (2 sources)Folliculitis; Translations: [Follicular disorder, unspecified] 94-60-9974QlqrsscpSwqac upper respiratory disease (4 sources)Allergic rhinitis; Translations: [Allergic rhinitis, unspecified] 40-58-4651CqcjqepTzvcs upper respiratory disease (2 sources)Nasal congestion; Translations: [Nasal congestion]48-82-2830Jbdmfiaz Other upper respiratory disease (2 sources)Bleeding from nose; Translations: [Epistaxis]94-17-9334HqbiaspuTtfre upper respiratory disease (2 sources)Polyp of nasal cavity and/or nasal sinus; Translations: [Nasal polyp, unspecified]73-46-0203YlmspcmzIbplga media and related conditions (15 sources)Dysfunction of right eustachian tube; Translations: [Unspecified Eustachian tube disorder, right ear]24-35-7842MznmcowsZtxbrgiigxj; intervertebral disc disorders; other back problems (20 sources)Degeneration of lumbar intervertebral disc; Translations: [Degenerative disc disease, lumbar]Onset: 213077-77-2993XohjraqNzwwtuoby cerebral ischemia (1 source)Amaurosis fugax of right eye; Translations: [Amaurosis fugax]Chronic Unclassified (5 sources)Irreducible left inguinal jluloe60-28-0067Gwwhikcvnsqc (4 sources)COUGH, UNSPECIFIED; Translations: [COUGH, UNSPECIFIED]Onset: 75-39-1673Azboclaafxwn (3 sources)CONTACT W/AND (SUSP) EXPOS COVID-19; Translations: [CONTACT W/AND (SUSP) EXPOS COVID-19]Onset: 01-65-0432Dsykdxc tract infections (2 sources)Acute cystitis; Translations: [Acute cystitis with hematuria] 16-35-6423RqokjtonTwgpc infection (1 source)COVID-19; Translations: [COVID-19]Onset: 07-22-2022 Past or Other Problems Problem ClassificationProblemDateDocumented DateEpisodic/ChronicAbdominal hernia (20 sources)Obstructed inguinal hernia; Translations: [Unilateral inguinal hernia, with obstruction, without gangrene, not specified as recurrent]Onset: 01-54-7888CyciyqqhKbrjwnuvfshru symptoms and ill-defined conditions (20 sources)Delay when starting to pass urine; Translations: [[place] hematuria] Onset: 522181-15-9830ZjqtpbrjZnhhl valve disorders (20 sources)Heart murmur; Translations: [Cardiac murmur, unspecified]Onset: 040480-49-5109NhpumdrzZxury diseases of bladder and urethra (20 sources)Urethral stricture; Translations: [Unspecified urethral stricture, male, unspecified site]Onset: 608887-72-8987ItrrztwwMptmx screening for suspected conditions (not mental disorders or infectious disease) (20 sources)Raised prostate specific antigen; Translations: [Elevated prostate specific antigen [PSA]]Onset: 585546-27-7626BdaovmtvWdmbu upper respiratory disease (20 sources)Other specified disorders of nose and nasal sinuses; Translations: [Other disease of nasal cavity and sinuses]Onset: 115688-94-7746Crrdisni Other upper respiratory infections (20 sources)Acute pharyngitis, unspecified; Translations: [Acute maxillary sinusitis]Onset: 503446-14-0719PoqywgddItzvsmuiovg; intervertebral disc disorders; other back problems (20 sources)Sciatica; Translations: [Sciatica, right side]Onset: 12-22-2022 82-18-1351KrvkyrgaNmebjfppmeiz (1 source)COUGH, UNSPECIFIED; Translations: [COUGH, UNSPECIFIED]Onset: 42-50-3102Cipdtiyieeqk (1 source)CONTACT W/AND (SUSP) EXPOS COVID-19; Translations: [CONTACT W/AND (SUSP) EXPOS COVID-19]Onset: 39-78-5852Oztysxjxuziq (1 source)Never smoked tobacco; Translations: [Never a smoker]Viral infection (20 sources)Plantar wart of left foot; Translations: [Plantar wart]Onset: 837791-51-6291Izpvlzbq Results Test NameValueInterpretationReference RangeFacilityCT Posterior fossa WO contraston 43[place]13[place]235[place] [address] [place] Scan Report Signed Patient: FRANKIE DE ANDA MR#: [id number] : 1950 Acct:[id number] Age/Sex: 74 / M ADM Date: 03/10/25 Loc: CT Attending Dr: Antwon Estrada M.D. Ordering Physician: Antwon Estrada M.D. Date of Service: 03/10/25 Procedure(s): CT int auditory canals w/o con Accession Number(s): [id number] cc: WESTON BORJA [place] [id number] Patient Name: FRANKIE DE ANDA MRN: [id number] date: 1950 Sex: M Assigned Patient Location: CT Current Patient Location: CT Accession/Order Number: [id number] Exam Date: 03/10/2025 14:30 Report Date: 03/10/2025 [...] Hartman M.D. 03/10/2025 5:08 PM Dictation Location: [place] [address] Electronically authenticated by: [id number] Y Date: 03/10/2025 17:08 Dictated By: Gerry Hartman M.D. Signed By: 03/23/25 1357 DD/ 1708 TD/TT: Treating And Pumping Supervisor:TBHRadiology, Radiologist, MD - 03/23/2025 [place] [address] CT Scan Report Signed Patient: FRANKIE DE ANDA MR#: [id number] : 1950 Acct:[id number] Age/Sex: 74 / M ADM Date: 03/10/25 Loc: CT Attending Dr: Antwon Estrada M.D. Ordering Physician: Antwon Estrada M.D. Date of Service: 03/10/25 Procedure(s): CT int auditory canals w/o con Accession Number(s): [id number] cc: WESTON BORJA [facility] [place] [id number] Patient Name: FRANKIE DE ANDA MRN: [id number] date: 1950 Sex: M Assigned Patient Location: CT Current Patient Location: CT Accession/Order Number: [id number] Exam Date: 03/10/2025 14:30 Report Date: 03/10/2025 [...] Hartman M.D. 03/10/2025 5:08 PM Dictation Location: [place] [address] Electronically authenticated by: [id number] Y Date: 03/10/2025 17:08 Dictated By: Gerry Hartman M.D. Signed By: 03/23/25 1351 DD/ 1708 TD/TT: Treating And Pumping Supervisor: KEIRA Whitney Posterior fossa WO contrastOrdered By: Radiologist Radiology on 84-27-6239VWGH Mila Work Phone: ct Internal auditory canal WO and W contrast Cong 67-61-[place]86[place]pn[place] [address] CT Scan Report Signed Patient: FRANKIE DE ANDA MR#: [id number] : 1950 Acct:[id number] Age/Sex: 74 / M ADM Date: 03/10/25 Loc: CT Attending Dr: Antwon Estrada M.D. Ordering Physician: Antwon Estrada M.D. Date of Service: 03/10/25 Procedure(s): CT int auditory canals wo/w Accession Number(s): [id number] cc: WESTON BORJA [place] [id number] Patient Name: FRANKIE DE ANDA MRN: [id number] date: 1950 Sex: M Assigned Patient Location: CT Current Patient Location: CT Accession/Order Number: [id number] Exam Date: 03/10/2025 14:46 Report Date: 03/10/2025 [...] Hartman M.D. 03/10/2025 5:08 PM Dictation Location: [place] [address] Electronically authenticated by: [id number] Y Date: 03/10/2025 17:08 Dictated By: Gerry Hartman M.D. Signed By: 03/10/25 1711 DD/ 1708 TD/TT: Treating And Pumping Supervisor:TBHRadiology, Radiologist, - 03/13/2025 [place] [address] CT Scan Report Signed Patient: FRANKIE DE ANDA MR#: [id number] : 1950 Acct:[id number] Age/Sex: 74 / M ADM Date: 03/10/25 Loc: CT Attending Dr: Antwon Estrada M.D. Ordering Physician: Antwon Estrada M.D. Date of Service: 03/10/25 Procedure(s): CT int auditory canals wo/w Accession Number(s): [id number] cc: WESTON BORJA [place] [address] Patient Name: FRANKIE DE ANDA MRN: [id number] date: 1950 Sex: M Assigned Patient Location: CT Current Patient Location: CT Accession/Order Number: [id number] Exam Date: 03/10/2025 14:46 Report Date: 03/10/2025 [...] Hartman M.D. 03/10/2025 5:08 PM Dictation Location: [place] [address] Electronically authenticated by: [id number] Y Date: 03/10/2025 17:08 Dictated By: Gerry Hartman M.D. Signed By: 03/10/25 1711 DD/ 07 TD/TT: Treating And Pumping Supervisor: KEIRA LandonCT Internal auditory canal WO and W contrast IVOrdered By: Radiologist Radiology on 74-48-1077[facility] Work Phone: No Panel Informationon 89-92-2650Nxhxjkhhe Study observation (narrative)[facility] HealthcareLabor[facility] - Hematology and Cell countson 09-50-5984SrD1j (Bld) [Mass fraction]6.6 %NOM HealthcareNo Panel Informationon 52-17-6668SYIJ HealthcareCORTISOL, TOTALon 49-86-4394CANDPQAJ, TOTAL20.4 mcg/dL NormalQuest DiagnosticsComment on above:Result Comment: Reference Range: For 8 a.m.(7-9 a.m.) Specimen: 4.0-22.0 Reference Range: For 4 p.m.(3-5 p.m.) Specimen: 3.0-17.0 * Please interpret above results accordingly *Performed By: #### 866, 33472, 899, 367 #### [facility] [address], [address] [place], [place] [id number] Wood Turning Lathe Operator: Sagar Pathak MD #### 32477 #### [facility]/[place] [address] [place], [place] Wood Turning Lathe Operator: Shan Ashby M.D.,PhDT3, [facility] 80-49-6119Oyna T3 [Mass/Vol]3.1 pg/mLNormal2.3-4.2Quest DiagnosticsComment on above:Performed By: #### 866, 94971, 899, 367 #### [facility] [address], [address] [place], [place] [address] Wood Turning Lathe Operator: Sagar Pathak MD #### 66253 #### [facility]/[place] [address] [place], [place] Wood Turning Lathe Operator: Shan Ashby M.D.,PhDT4, [facility] 02-88-4173Fhqv T4 [Mass/Vol]1.0 ng/dLNormal0.8-1.8Quest DiagnosticsComment on above:Performed By: #### 866, 71504, 899, 367 #### [facility] [place] [phone] Wood Turning Lathe Operator: Sagar Pathak MD #### 95451 #### [facility]/[address] [place], [place] Wood Turning Lathe Operator: Shan Ashby M.D.,PhDTESTOSTERONE, FREE (DIALYSIS) AND TOTAL,[facility] 27-53-1076YWZBGHLWOOHS, FREE52.1 pg/vUWqjilw31.0-135.0Quest DiagnosticsComment on above:Result Comment: This test was developed and its analytical performance characteristics have been determined by [facility] [place], [place]. It has not been cleared or approved by the U.S. Food and Drug Administration. This assay has been validated pursuant to the CLIA regulations and is used for clinical purposes.Performed By: #### 866, 19592, 899, 367 #### [facility] [address], [address] [place] [address] Wood Turning Lathe Operator: Sagar Pathak MD #### 82573 #### [facility] [address] [facility] [place], [place] Wood Turning Lathe Operator: Shan Ashby M.D.,PhDTESTOSTERONE, TOTAL, MS352 ng/dLNormal 250-1100Quest DiagnosticsComment on above:Result Comment: Men with clinically significant hypogonadal symptoms and testosterone values repeatedly in the range of the 200-300 ng/dL or less, may benefit from testosterone treatment after adequate risk and benefits counseling. For additional information, please refer to http://education.[address].[employer]/faq/ YkrotDjpmjuvyvrkoNVWOXBYLR340 (This link is being provided for informational/ educational purposes only.) This test was developed and its analytical performance characteristics have been determined by [facility] [place], [place]. It has not been cleared or approved by the U.S. Food and Drug Administration. This assay has been validated pursuant to the CLIA regulations and is used for clinical purposes.Performed By: #### 806, 30446, 899, 367 #### [facility] [address], [address] [place] [address] Wood Turning Lathe Operator: Sagar Pathak MD #### 25665 #### [facility] [address] [facility] [address] [place] Wood Turning Lathe Operator: Shan Ashby M.D.,PhDTSHon 78-75-3823KHB Qn1.20 m[IU]/L Normal0.40-4.50Quest DiagnosticsComment on above:Performed By: #### 866, 74905, 899, 367 #### [facility] of [address], [address] [place] [address] Wood Turning Lathe Operator: Sagar Pathak MD #### 20261 #### [facility] [address] [facility] [place], [place] Wood Turning Lathe Operator: Shan Ashby M.D.,PhDLaboratory - Hematology and Cell countson 98-09-7839DpI4v (Bld) [Mass fraction]6.3 %NOMS HealthcareNo Panel Informationon 80-71-4938WCPI HealthcareCBC (INCLUDES DIFF/PLT)on 07-01-2024 Basophils (Bld) [#/Vol]0.048 10*3/uLNormal0-200Quest DiagnosticsComment on above:Performed By: #### 6399, 45296, 04597, 7600 #### [facility] of [place] [address] [address] , [address] [place] [address] Wood Turning Lathe Operator: Sagar Pathak MDBasophils/100 WBC (Bld)0.7 %NormalQuest DiagnosticsComment on above:Performed By: #### 6399, 39651, 46425, 7600 #### [facility] of [place] [address] [address] , [address] [place] [address] Wood Turning Lathe Operator: Sagar Pathak MDEosinophils (Bld) [#/Vol]0.476 10*3/uLNormal 15-500Quest DiagnosticsComment on above:Performed By: #### 6399, 57542, 18023, 7600 #### [facility] of [place] [address], [address] [place] [address] Wood Turning Lathe Operator: Sagar Pathak MDEosinophils/100 WBC (Bld)6.9 %NormalQuest DiagnosticsComment on above:Performed By: #### 6399, 23460, 83149, 7600 #### [facility] of [place] [address] [address] , [address] [place] [address] Wood Turning Lathe Operator: Sagar Pathak MDErythrocyte distribution width (RBC) [Ratio] 14.4 %Plxmxg30.0-15.0Quest DiagnosticsComment on above:Performed By: #### 6399, 41706, 64323, 7600 #### [facility] of [place] [address] Wood Turning Lathe Operator: Sagar Pathak MDHematocrit (Bld) [Volume fraction]46.6 %Normal 38.5-50.0Quest DiagnosticsComment on above:Performed By: #### 6399, , 09043, 7600 #### [facility] [place] [address] Wood Turning Lathe Operator: Sagar Pathak MDHemoglobin (Bld) [Mass/Vol]15.0 g/dLNormal 13.2-17.1Quest DiagnosticsComment on above:Performed By: #### 6399, , 30172, 7600 #### [facility] of [place] [address] Wood Turning Lathe Operator: Sagar Pathak MDLymphocytes (Bld) [#/Vol]2.215 10*3/uLNormal 850-3900Quest DiagnosticsComment on above:Performed By: #### 6399, , 84477, 7600 #### [facility] [place] [address] Wood Turning Lathe Operator: Sagar Pathak MDLymphocytes/100 WBC (Bld)32.1 %NormalQuest DiagnosticsComment on above:Performed By: #### 6399, 58440, 90690, 7600 #### [facility] of [place] [address] Wood Turning Lathe Operator: Sagar Pathak MDMCH (RBC) [Entitic mass]27.6 oaDxquyj83.0-33.0 Quest DiagnosticsComment on above:Performed By: #### 6399, , 81043, 7600 #### [facility] of [address], [address] [place] [address] Wood Turning Lathe Operator: Sagar Pathak MDMCHC (RBC) [Mass/Vol]32.2 g/iIXvxetq61.0-36.0 Quest DiagnosticsComment on above:Result Comment: For adults, a slight decrease in the calculated MCHC value (in the range of 30 to 32 g/dL) is most likely not clinically significant; however, it should be interpreted with caution in correlation with other red cell parameters and the patient's clinical condition.Performed By: #### 6399, 68045, 67585, 7600 #### [facility] of [address], [address] [place] [address] Wood Turning Lathe Operator: Sagar Pathak MDMCV (RBC) [Entitic vol]85.8 kANhtwsh71.0-100.0 Quest DiagnosticsComment on above:Performed By: #### 6399, , 16970, 7600 #### [facility] of [place] [address] Wood Turning Lathe Operator: Sagar Pathak MDMonocytes (Bld) [#/Vol]0.518 10*3/uLNormal 200-950Quest DiagnosticsComment on above:Performed By: #### 6399, 59774, 68599, 7600 #### [facility] of [place] [address] Wood Turning Lathe Operator: Sagar Pathak MDMonocytes/100 WBC (Bld)7.5 %NormalQuest DiagnosticsComment on above:Performed By: #### 6399, 20576, 49149, 7600 #### [facility] of [place] [address] Wood Turning Lathe Operator: Sagar Pathak MDNeutrophils (Bld) [#/Vol]3.643 10*3/uLNormal 1500-7800Quest DiagnosticsComment on above:Performed By: #### 6399, 06180, 33457, 7600 #### [facility] of [address], [address] [place] [address] Wood Turning Lathe Operator: Sagar Pathak MDNeutrophils/100 WBC (Bld)52.8 %NormalQuest DiagnosticsComment on above:Performed By: #### 6399, 03275, 06173, 7600 #### [facility] of [address], [address] [place] [address] Wood Turning Lathe Operator: Sagar Pathak MDPlatelet mean volume (Bld) [Entitic vol]9.8 fL Normal7.5-12.5Quest DiagnosticsComment on above:Performed By: #### 6399, 07043, 83633, 7600 #### [facility] of [address], [address] [place] [address] Wood Turning Lathe Operator: Sagar Pathak MDPlatelets (Bld) [#/Vol]209 10*3/uLNormal 140-400Quest DiagnosticsComment on above:Performed By: #### 6399, 66274, 05188, 7600 #### [facility] of [address], [address] [place] [address] Wood Turning Lathe Operator: Sagar Pathak MDRBC (Bld) [#/Vol]5.43 10*6/uLNormal4.20-5.80 [facility] DiagnosticsComment on above:Performed By: #### 6399, 80936, 68664, 7600 #### [facility] of [address], [address] [place] [address] Wood Turning Lathe Operator: Sagar Patahk MDWBC (Bld) [#/Vol]6.9 10*3/uLNormal3.8-10.8 [facility] DiagnosticsComment on above:Performed By: #### 6399, 06857, 04931, 7600 #### [facility] of [address], [address] [place] [address] Wood Turning Lathe Operator: Sagar Pathak MDCOMPREHENSIVE METABOLIC PANELon 07-01-2024 Albumin [Mass/Vol]4.1 g/dLNormal3.6-5.1Quest DiagnosticsComment on above: Performed By: #### 6399, 51318, 16773, 7600 #### [facility] of [address], [address] [place] [address] Wood Turning Lathe Operator: Sagar Pathak MDAlbumin/Globulin [Mass ratio]1.4 {ratio}Normal 1.0-2.5Quest DiagnosticsComment on above:Performed By: #### 6399, 08162, 95123, 7600 #### [facility] of [address], [address] [place] [address] Wood Turning Lathe Operator: Sagar Pathak MDALP [Catalytic activity/Vol]68 U/RWmmclz18-301 [facility] DiagnosticsComment on above:Performed By: #### 6399, 44856, 20862, 7600 #### [facility] of [address], [address] [place] [address] Wood Turning Lathe Operator: Sagar Pathak MDALT [Catalytic activity/Vol]17 U/LNormal9-46 [facility] DiagnosticsComment on above:Performed By: #### 6399, 03886, 00725, 7600 #### [facility] of [address], [address] [place] [address] Wood Turning Lathe Operator: Sagar Pathak MDAST [Catalytic activity/Vol]18 U/PTgaklc91-22 [facility] DiagnosticsComment on above:Performed By: #### 6399, , 28834, 7600 #### [facility] of [address], [address] [place] [address] Wood Turning Lathe Operator: Sagar Pathak MDBilirubin [Mass/Vol]1.0 mg/dLNormal0.2-1.2 [facility] DiagnosticsComment on above:Performed By: #### 6399, 84202, 44479, 7600 #### [facility] of [place] [address] Wood Turning Lathe Operator: Sagar Pathak MDBUN/CREATININE RATIOSEE NOTE:Normal6-22Quest DiagnosticsComment on above:Result Comment: Not Reported: BUN and Creatinine are within reference range.Performed By: #### 6399, 11942, 64718, 7600 #### [facility] of [place] [address] Wood Turning Lathe Operator: Sagar LOPEZalcium [Mass/Vol]9.1 mg/dLNormal8.6-10.3Quest DiagnosticsComment on above:Performed By: #### 6399, 75931, 27389, 7600 #### [facility] of [place] [address] Wood Turning Lathe Operator: Sagar Pathak MDChloride [Moles/Vol]105 mmol/XTecepv08-062 [facility] DiagnosticsComment on above:Performed By: #### 6399, 27607, 13176, 7600 #### [facility] of [place] [address] Wood Turning Lathe Operator: Sagar Pathak MDCO2 [Moles/Vol]25 mmol/RVeocvw17-69Etzxi DiagnosticsComment on above:Performed By: #### 6399, , 28120, 7600 #### [facility] of [place] [address] Wood Turning Lathe Operator: Sagar LOPEZreatinine [Mass/Vol]0.84 mg/dLNormal0.70-1.28 [facility] DiagnosticsComment on above:Performed By: #### 6399, , 58253, 7600 #### [facility] of [place] [address] Wood Turning Lathe Operator: Sagar Pathak MDGFR/1.73 sq M.predicted among non-blacks MDRD (S/P/Bld) [Vol rate/Area]91 mL/min/{1.73_m2}Normal> OR = 60[facility] Comment on above:Performed By: #### 6399, 11076, 65786, 7600 #### [facility] of [place] [address] Wood Turning Lathe Operator: Sagar Pathak MDGlobulin (S) [Mass/Vol]2.9 g/dLNormal1.9-3.7 [facility] DiagnosticsComment on above:Performed By: #### 6399, 01255, 05584, 7600 #### [facility] [place] [address] Wood Turning Lathe Operator: Sagar Pathak MDGlucose [Mass/Vol]119 mg/jVXrvi90-14Wpmxt DiagnosticsComment on above:Result Comment: Fasting reference interval For someone without known diabetes, a glucose value between 100 and 125 mg/dL is consistent with prediabetes and should be confirmed with a follow-up test.Performed By: #### 6399, 77649, 63680, 7600 #### [facility] [place] [address] Wood Turning Lathe Operator: Sagar Pathak MDPotassium [Moles/Vol]4.4 mmol/LNormal3.5-5.3 [facility] DiagnosticsComment on above:Performed By: #### 6399, , 52717, 7600 #### [facility] [place] [address] Wood Turning Lathe Operator: Sagar Pathak MDProtein [Mass/Vol]7.0 g/dLNormal6.1-8.1Quest DiagnosticsComment on above:Performed By: #### 6399, 05013, 65133, 7600 #### [facility] [place] [address] Wood Turning Lathe Operator: Sagar Pathak MDSodium [Moles/Vol]139 mmol/YGwvmky345-525Zahoo DiagnosticsComment on above:Performed By: #### 6399, 03593, 49213, 7600 #### [facility] [place] [address] Wood Turning Lathe Operator: Sagar Pathak MDUrea nitrogen [Mass/Vol]16 mg/dLNormal7-25 [facility] DiagnosticsComment on above:Performed By: #### 6399, , 99960, 7600 #### [facility] [address] [place] [address] Wood Turning Lathe Operator: Sagar Pathak MDLIPID PANEL, STANDARDon 44-37-2355Czqbwppfemi [Mass/Vol]143 mg/dLNormal<200Quest DiagnosticsComment on above:Order Comment: FASTING:YES FASTING: YESPerformed By: #### 6399, 98534, 56677, 7600 #### [facility] [address], [address] [place] [address] Wood Turning Lathe Operator: Sagar LOPEZholesterol in HDL [Mass/Vol]55 mg/dLNormal> OR = 40Quest DiagnosticsComment on above:Order Comment: FASTING:YES FASTING: YESPerformed By: #### 6399, 10559, 46086, 7600 #### [facility] [address], [address] [place] [address] Wood Turning Lathe Operator: Sagar LOPEZholesterol in LDL [Mass/Vol]70 mg/dLNormal [facility] DiagnosticsComment on [...] LDL-C. Jorge SS et al. ISAÍAS. 2013;310(19): 2446-6729 (http://education.[employer]/faq/QLA870)Performed By: #### 6399, 94992, 78834, 7600 #### [facility] [address], [address] [place] [address] Wood Turning Lathe Operator: Sagar LOPEZholesterojake.total/Cholesterol in HDL [Mass ratio]2.6 {ratio}Normal<5.0Quest DiagnosticsComment on above:Order Comment: FASTING:YES FASTING: YESPerformed By: #### 6399, 17683, 69488, 7600 #### [facility] [address], [address] [place] [address] Wood Turning Lathe Operator: Sagar TADEO HDL QLRISKKTEMK26 mg/dL (calc)Normal<130 [facility]osticsComment on above:Order Comment: FASTING:YES FASTING: YESResult Comment: For patients with diabetes plus 1 major ASCVD risk factor, treating to a non-HDL-C goal of <100 mg/dL (LDL-C of <70 mg/dL) is considered a therapeutic option.Performed By: #### 6399, 14749, , 7600 #### [facility] [address], [address] [place] [address] Wood Turning Lathe Operator: Sagar Pathak MDTriglyceride [Mass/Vol]93 mg/dLNormal<150Quest DiagnosticsComment on above:Order Comment: FASTING:YES FASTING: YESPerformed By: #### 6399, , , 7600 #### [facility] [address], [address] [place] [address] Wood Turning Lathe Operator: Sagar Pathak [facility], TOTALon 20-47-0878TIA, TOTAL1.24 ng/mL Normal< OR = 4.00Quest DiagnosticsComment [...] or absence of disease.Performed By: #### 6399, 21286, , 7600 #### [facility] [address], [address] [place] [address] Wood Turning Lathe Operator: Sagar Pathak [facility] W/REFLEX TO FT4on 58-24-2982XAN W/REFLEX TO FT41.24 mIU/LNormal0.40-4.50Quest DiagnosticsComment on above:Performed By: #### 6399, 73476, 96244, 7600 #### [facility] [address], [address] [place] [address] Wood Turning Lathe Operator: Sagar Rivero Panel Informationon 69-80-7487SbjcmBRAEDEN Negron 06/29/2024 3:46 PM Ear Cerumen Removal [...] Improved Procedure completion: Tolerated well, no immediate complicationsNONJ Healthcare NOMS HealthcareLaboratory - Hematology and Cell countson 69-09-5488OwS0v (Bld) [Mass fraction]6.3 %NOMS HealthcareNo Panel Informationon 50-17-6999TUPO HealthcareUrinalysis macro (dipstick) panel (U)on 73-92-5272Wfduxdtgd, UAFew Negative - 4(70) +++ mg/dLNOMS HealthcareBlood, UAPositiveNegative - 50 Gabriel/mcL NOMS HealthcareClarity, UACloudyNONJ HealthcareColor, UAStrawNONJ Healthcare Glucose, UANegativeNegative - 1999(110) ++++ mg/dLNONJ HealthcareInterpretation and review of laboratory resultsAbnormalNONJ HealthcareKetones, UANegative Negative - 160(16) ++++ mg/dLNOMS HealthcareLeukocytes, UAModerateNegative - 500+++ Luzma/mcLNONJ HealthcareNitrite, UANegativeNegative - PositiveNOMS HealthcarepH, UA6.05 - 9NOMS HealthcareProtein, UATraceNegative - 2000(20) ++++ mg/dLNOMS HealthcareSpec Grav, UA1.0201 - 1.03NOMS HealthcareUrobilinogen, UA1.0 0.2 - 12 mg/dLNOMS HealthcareNOMS HealthcareXR LUMBAR SPINE 2 OR 3Von 11-26-[address] [address] XRay Report Signed Patient: FRANKIE DE ANDA MR#: [id number] : 1950 Acct:[id number] Age/Sex: 73 / M ADM Date: 11/26/23 Loc: [facility] Attending Dr: WESTON BORJA Ordering Physician: WESTON BORJA Date of Service: 11/26/23 Procedure(s): XR lumbar spine 2-3V Accession Number(s): [id number] cc: WESTON BORJA [place] [address] Patient Name: FRANKIE DE ANDA MRN: [id number] date: 1950 Sex: M Assigned Patient Location: [facility] Current Patient Location: [facility] Accession/Order Number: [id number] Exam Date: 11/26/2023 15:40 Report Date: 11/26/2023 16:14 At the request of: WESTON BORJA Procedure: XR lumbar spine 2-3V EXAMINATION: XR lumbar spine 2-3V HISTORY: Bilateral hip pain m25.551, m25.552 r COMPARISON: No relevant comparison available. FINDINGS: BONES: 9 mm anterolisthesis of L5 in relation S1. 4 mm retrolisthesis of L1 on L2. Mild spondylosis. Moderate to severe facet osteoarthropathy DISC SPACES: Multilevel disc space narrowing. Vacuum disc L5-S1. PARASPINOUS: Negative. No paraspinous abnormality is seen. OTHER: Negative. XR/XR lumbar spine 2-3V IMPRESSION: Moderate to severe degenerative changes with multilevel spondylolisthesis Electronically authenticated by: KALEB SHERWOOD Date: 11/26/2023 16:14 Dictated By: Kaleb Sherwood M.D. Signed By: 11/26/231615 DD/ 13 TD/TT: Treating And Pumping Supervisor:TBHRadiology, Radiologist, - 11/26/2023 The [place] [id number] XRay Report Signed Patient: FRANKIE DE ANDA MR#: [id number] : 1950 Acct:[id number] Age/Sex: 73 / M ADM Date: 11/26/23 Loc: [facility] Attending Dr: WESTON BORJA Ordering Physician: WESTON BORJA Date of Service: 11/26/23 Procedure(s): XR lumbar spine 2-3V Accession Number(s): [id number] cc: WESTON BORJA [place] [id number] Patient Name: FRANKIE DE ANDA MRN: [id number] date: 1950 Sex: M Assigned Patient Location: [facility] Current Patient Location: [facility] Accession/Order Number: [id number] Exam Date: 11/26/2023 15:40 Report Date: 11/26/2023 16:14 At the request of: WESTON BORJA Procedure: XR lumbar spine 2-3V EXAMINATION: XR lumbar spine 2-3V HISTORY: Bilateral hip pain m25.551, m25.552 r COMPARISON: No relevant comparison available. FINDINGS: BONES: 9 mm anterolisthesis of L5 in relation S1. 4 mm retrolisthesis of L1 on L2. Mild spondylosis. Moderate to severe facet osteoarthropathy DISC SPACES: Multilevel disc space narrowing. Vacuum disc L5-S1. PARASPINOUS: Negative. No paraspinous abnormality is seen. OTHER: Negative. XR/XR lumbar spine 2-3V IMPRESSION: Moderate to severe degenerative changes with multilevel spondylolisthesis Electronically authenticated by: KALEB SHERWOOD Date: 11/26/2023 16:14 Dictated By: Kaleb Sherwood M.D. Signed By: 11/26/231615 DD/ 13 TD/TT: Treating And Pumping Supervisor: NOMS HealthcareRadiology Study observation (narrative)NOMS HealthcareXR LUMBAR SPINE 2 OR 3VOrdered By: Radiologist Radiology on 60-86-8299LW[facility] Work Phone: XR Pelvis AP and Hip - bilateral GE 2 Viewson 39-29-52[address] [address] XRay Report Signed Patient: FRANKIE DE ANDA MR#: [id number] : 1950 Acct:[id number] Age/Sex: 73 / M ADM Date: 11/26/23 Loc: [facility] Attending Dr: WESTON BORJA Ordering Physician: WESTON BORJA Date of Service: 11/26/23 Procedure(s): XR hip JAMIE Accession Number(s): [id number] cc: WESTON BORJA The [place] [id number] Patient Name: FRANKIE DE ANDA MRN: [id number] date: 1950 Sex: M Assigned Patient Location: [facility] Current Patient Location: [facility] Accession/Order Number: [id number] Exam Date: 11/26/2023 15:40 Report Date: 11/26/2023 15:56 At the request of: WESTON BORJA Procedure: XR hip JAMIE EXAMINATION: XR hip JAMIE HISTORY: Bilateral hip pain m25.551, m25.552 COMPARISON: No relevant comparison available. FINDINGS: RIGHT FINDINGS: BONES: No acute fracture or dislocation. Mild degenerative osteoarthropathy with joint space narrowing marginal osteophyte formation. SOFT TISSUES: Negative. No visible soft tissue swelling. OTHER: Negative. LEFT FINDINGS: BONES: No acute fracture or dislocation. Mild degenerative osteoarthropathy with joint space narrowing marginal osteophyte formation. SOFT TISSUES: Negative. No visible soft tissue swelling. OTHER: Negative. XR/XR hip JAMIE IMPRESSION: Mild bilateral hip osteoarthritis Electronically authenticated by: KALEB SHERWOOD Date: 11/26/2023 15:56 Dictated By: Kaleb Sherwood M.D. Signed By: 11/26/23 1558 DD/ 1556 TD/TT: Treating And Pumping Supervisor:TBHRadiology, Radiologist, MD - 11/26/2023 [place] [address] XRay Report Signed Patient: FRANKIE DE ANDA MR#: [id number] : 1950 Acct:[id number] Age/Sex: 73 / M ADM Date: 11/26/23 Loc: [facility] Attending Dr: WESTON BORJA Ordering Physician: WESTON BORJA Date of Service: 11/26/23 Procedure(s): XR hip JAMIE Accession Number(s): [id number] cc: WESTON BORJA [place] [id number] Patient Name: FRANKIE DE ANDA MRN: [id number] date: 1950 Sex: M Assigned Patient Location: [facility] Current Patient Location: [facility] Accession/Order Number: [id number] Exam Date: 11/26/2023 15:40 Report Date: 11/26/2023 15:56 At the request of: WESTON BORJA Procedure: XR hip JAMIE EXAMINATION: XR hip JAMIE HISTORY: Bilateral hip pain m25.551, m25.552 COMPARISON: No relevant comparison available. FINDINGS: RIGHT FINDINGS: BONES: No acute fracture or dislocation. Mild degenerative osteoarthropathy with joint space narrowing marginal osteophyte formation. SOFT TISSUES: Negative. No visible soft tissue swelling. OTHER: Negative. LEFT FINDINGS: BONES: No acute fracture or dislocation. Mild degenerative osteoarthropathy with joint space narrowing marginal osteophyte formation. SOFT TISSUES: Negative. No visible soft tissue swelling. OTHER: Negative. XR/XR hip JAMIE IMPRESSION: Mild bilateral hip osteoarthritis Electronically authenticated by: KALEB SHERWOOD Date: 11/26/2023 15:56 Dictated By: Kaleb Sherwood M.D. Signed By: 11/26/23 1558 DD/ 1556 TD/TT: Treating And Pumping Supervisor: [facility] HealthcareRadiology Study observation (narrative)NOM HealthcareXR Pelvis AP and Hip - bilateral GE 2 ViewsOrdered By: Radiologist Radiology on 11-26-2023 [facility] Mila Work Phone: ambulatory Visit Summaryon 99-70-7123Jnnkukfshd Visit Summary FRANKIE DE ANDA :1950 Visit Date:01/13/2023 Ambulatory Visit Instructions Your Care Team Attending Physician - JIMY BOWEN, Dakota Hoang Primary Care Physician - JENNIFER BOWEN, WESTON Matta This Is Your Medications List aspirin (aspirin 81 mg oral tablet) carvedilol (Coreg 12.5 mg Tab) fluticasone nasal (Flonase 0.05 mg/inh [place]) hydrochlorothiazide-losartan (hydrochlorothiazide-losartan 12.5 mg-50 mg Tab) metformin [...] Unchanged fluticasone nasal (Flonase 0.05 mg/ inh [place]) 2 Sprays Nasal Inhalation Every day Unchanged [...] of multiple and bilateral cerebral arteries [facility]Clinic Noteon 83-64-0283Odkmcxl Surgery Office/Clinic NoteChief Complaint post operative follow [...] MIGUEL A Hawk Only if needed [address] [place] [address]- Additional Instructions: Problem List/Past Medical [...] tab(s), Oral, BID, PRN Flonase 0.05 mg/inh [place], 2 spray(s), Nasal, Daily hydrochlorothiazide-losartan 12.5 mg-50 [...] Recorded SARS-CoV-2 (COVID-19) mRNA BNT-162b2 vax 07/30/2020 RecordedSt. Charles HospitalComment on above:Result Comment: Electronically Signed By: JIMY BOWEN, Dakota Hoang\.br\Date and Time Signed: 01/13/23 16:50 EDTAmbulatory Visit Summaryon 63-58-2692Agtlwahcdv Visit Summary FRANKIE DE ANDA :1950 Visit Date:12/26/2022 Ambulatory Visit Instructions Your Care Team Attending Physician - JIMY BOWEN, Dakota Hoang Primary Care Physician - WESTON BORJA MD This Is Your Medications List aspirin (aspirin 81 mg oral tablet) carvedilol (Coreg 12.5 mg Tab) fluticasone nasal (Flonase 0.05 mg/inh [place]) hydrochlorothiazide-losartan (hydrochlorothiazide-losartan 12.5 mg-50 mg Tab) metformin (metformin 500 mg Tab) rosuvastatin (Crestor 5 mg Tab) tolterodine (Detrol 2 mg Tab) Procedures Performed Repair of left inguinal hernia (12/10/2022), Rezum (04/19/2019), Circumcision, Tonsillectomy. What to do next Scheduled Follow-Up Appointments Thursday 4:00 PM EDT With: Dakota AHN MD Where: General Surgery Jimy/Yoly [facility] General Surgery Office/Clinic Noteon [id number] Surgery Office/Clinic NoteChief Complaint post operative follow [...] tab(s), Oral, BID, PRN Flonase 0.05 mg/inh [place], 2 spray(s), Nasal, Daily hydrochlorothiazide-losartan 12.5 mg-50 [...] Recorded SARS-CoV-2 (COVID-19) mRNA BNT-162b2 vax 07/30/2020 [facility] ShawComment on above:Result Comment: Electronically Signed By: JIMY BOWEN, Dakota Hoang\.br\Date and Time Signed: 12/26/22 16:45 EDTAmbulatory Visit Summaryon 16-22-5822Fkwzjwoizh Visit Summary FRANKIE DE ANDA :1950 Visit Date:12/17/2022 Ambulatory Visit Instructions Your Care Team Attending Physician - Dakota AHN MD Primary Care Physician - WESTON BORJA MD This Is Your Medications List aspirin (aspirin 81 mg oral tablet) carvedilol (Coreg 12.5 mg Tab) fluticasone nasal (Flonase 0.05 mg/inh [place]) hydrochlorothiazide-losartan (hydrochlorothiazide-losartan 12.5 mg-50 mg Tab) metformin (metformin 500 mg Tab) rosuvastatin (Crestor 5 mg Tab) tolterodine (Detrol 2 mg Tab) Procedures Performed Repair of left inguinal hernia (12/10/2022), Rezum (04/19/2019), Circumcision, Tonsillectomy. What to do next Scheduled Follow-Up Appointments Thursday 2:00 PM EDT With: Dakota AHN MD Where: General Surgery Jimy/Yoly [facility] General Surgery Office/Clinic Noteon [id number] Surgery Office/Clinic NoteChief Complaint post operative follow [...] tab(s), Oral, BID, PRN Flonase 0.05 mg/inh [place], 2 spray(s), Nasal, Daily hydrochlorothiazide-losartan 12.5 mg-50 [...] Recorded SARS-CoV-2 (COVID-19) mRNA BNT-162b2 vax 07/30/2020 RecordedNoGood Samaritan HospitalComment on above:Result Comment: Electronically Signed By: JIMY BOWEN, Dakota Aiken\Date and Time Signed: 12/17/22 15:10 EDTOperative Reporton [id number] [id number]#1.00CD:[address] [place], [place] [address]Consultation Noteon 55-75-1606Jyqezdxfvjwq Note [id number]#1.00CD:[address] [place], [place] [address]Lab Reportson 63-96-2308Szz Reports [id number]#1.00CD:[address] [place], [place] [address]Lab [id number]#1.00CD:[address] [place], [place] [address]Operative Reporton 71-16-9453Eigpcijyn Report [id number]#1.00CD:[address] [place] [address] Reportson 41-96-3004Gbe Reports [id number]#1.00CD:[address] [place] [address] Reportson 58-03-0074Ivo Reports [id number]#1.00CD:[address] [place], [place] [address]Lab [id number]#1.00CD:[address] [place], [place] [address]RAD - MISCon 48-55-4935KIJ - MISC [id number]#1.00CD:[address] [place], [place] [address]Consent for Procedure/Surgeryon 06-64-7110Ljczejk for Procedure/Surgery [id number]#1.00CD:[address] [place], [place] [address]Ambulatory Visit Summaryon 33-27-9281Qxddquosyw Visit Summary FRANKIE DE ANDA :1950 Visit Date:11/18/2022 Ambulatory Visit Instructions Your Care Team Attending Physician - JIMY BOWEN, Dakota Hoang Primary Care Physician - JENNIFER BOWEN, WESTON Matta This Is Your Medications List aspirin (aspirin 81 mg oral tablet) carvedilol (Coreg 12.5 mg Tab) fluticasone nasal (Flonase 0.05 mg/inh [place]) hydrochlorothiazide-losartan (hydrochlorothiazide-losartan 12.5 mg-50 mg Tab) metformin [...] Unchanged fluticasone nasal (Flonase 0.05 mg/ inh [place]) 2 Sprays Nasal Inhalation Every day Unchanged [...] of multiple and bilateral cerebral arteries [facility]on [id number] Surgery Office/Clinic NoteChief Complaint re-evaluate left inguinal [...] tab(s), Oral, BID, PRN Flonase 0.05 mg/inh [place], 2 spray(s), Nasal, Daily hydrochlorothiazide-losartan 12.5 mg-50 [...] Mother and Father. Immuniza (more content not included)...St. Charles HospitalComment on above:Result Comment: Electronically Signed By: JIMY BOWEN, Dakota Hoang\.br\Date and Time Signed: 11/18/22 21:01 EDTFacesheeton 93-74-7290Ifeizqglp [id number]#1.00CD:127NoGood Samaritan HospitalAmbulatory Visit Summaryon 31-79-4766Cppsacxogb Visit Summary FRANKIE DE ANDA :1950 Visit Date:10/01/2022 Ambulatory Visit Instructions Your Diagnosis Irreducible left inguinal hernia Your Care Team Attending Physician - JIMY BOWEN, Dakota Hoang Primary Care Physician - WESTON BORJA MD This Is Your Medications List Contact prescribing physician if questions or concerns aspirin (aspirin 81 mg oral tablet) carvedilol (Coreg 12.5 mg Tab) fluticasone nasal (Flonase 0.05 mg/inh [place]) hydrochlorothiazide-losartan (hydrochlorothiazide-losartan 12.5 mg-50 mg Tab) metformin [...] Unchanged fluticasone nasal (Flonase 0.05 mg/ inh [place]) 2 Sprays Nasal Inhalation Every day Contact [...] 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 [facility] HospitalLIPID PROFILEon 90-76-2312JFKW- HDL RATIO NORMSEE [facility] for RehabilitationComment on above:Result Comment: 3.3 - 4.4 LOW RISK 4.4 - 7.1 AVERAGE RISK 7.1 - 11.0 MODERATE RISK >11.0 HIGH RISKPerformed By: #### A1C #### [facility] [address], [place] [address] Dr. Vicky BustosCholesterol [Mass/Vol]136 mg/dLNormal<=200[facility] Comment on above:Performed By: #### A1C #### [facility] [address], [place] [address] Dr. Vicky BustosCholesterol in HDL [Mass/Vol]49 mg/zNJcosfi81-72Emj [facility] CenterComment on above:Performed By: #### A1C #### [facility] [address] [place] [address] [address] Vicky BustosCholesterol in LDL [Mass/Vol]67.0 mg/dLBarberton Citizens HospitalComment on above:Performed By: #### A1C #### [facility] [address] [place] [address] [address] Vicky BustosCholesterol.total/Cholesterol in HDL [Mass ratio]2.8 {ratio} NormalAdena Pike Medical CenterComment on above:Performed By: #### A1C #### [facility] [address] [place] [address] Dr. Vicky Mancilla NORMAL> or = 60 mg/dl - LOW CARDIOVASCULAR RISK <40 mg/dl - HIGH CARDIOVASCULAR RISKBarberton Citizens HospitalComment on above:Performed By: #### A1C #### [facility] [address] [place] [address] Dr. Vicky BustosLDL CALC NORMALSEE BELOWBarberton Citizens HospitalComment on above:Result Comment: <100 mg/dl OPTIMAL 100 - 129 mg/dl NEAR OR ABOVE OPTIMAL 130 - 159 mg/dl BORDERLINE HIGH 160 - 189 mg/dl HIGH >190 mg/dl VERY HIGH Performed By: #### A1C #### [facility] [address] [place] [address] Dr. Vicky BustosTriglyceride [Mass/Vol]100 mg/dLNormal<=150[facility] Comment on above:Performed By: #### A1C #### [facility] [address] [place] [address] Dr. Vicky FordLDL CALC20.0 mg/dLNoMemorial HospitalComment on above: Performed By: #### A1C #### [facility] [address] [place] [address] Dr. Vicky BustosPROF CHEM 8 (BAS METB)on 88-30-5538Qczkp gap [Moles/Vol]12.9 mmol/LNormalAdena Pike Medical CenterComment on above:Performed By: #### A1C #### [facility] [address] [address] [address] Vicky BustosCalcium [Mass/Vol]9.3 mg/dLNormal8.5-10.1The [facility] Comment on above:Performed By: #### A1C #### [facility] [address] [address] [address] Vicky BustosChloride [Moles/Vol]100 mmol/DGjghux03-259Stz [facility] Comment on above:Performed By: #### A1C #### [facility] [address] [address] [address] Vicky BustosCO2 [Moles/Vol]30.7 mmol/WEacwvn12.0-32.0The [facility] Comment on above:Performed By: #### A1C #### [facility] [address] [address] [address] Vicky BustosCreatinine [Mass/Vol]0.93 mg/dLNormal0.70-1.30The [facility] CenterComment on above:Performed By: #### A1C #### [facility] [address] [place] [address] [address] Perry ChangEGFR-AF GEORGIAN>60Normal>=60The [facility] CenterComment on above:Performed By: #### A1C #### [facility] [address] [address] [address] Vicky PaulGFR-NON AF GEORGIAN>60Normal>=60The [facility] CenterComment on above:Performed By: #### A1C #### [facility] [address] [address] [address] Vicky BustosGlucose [Mass/Vol]139 mg/dLCritically rgnq72-105Sxx [facility] CenterComment on above:Performed By: #### A1C #### [facility] [address] [address] [address] Vicky BustosPotassium [Moles/Vol]4.6 mmol/LNormal3.5-5.1The [facility] Comment on above:Performed By: #### A1C #### [facility] [address] [address] [address] Vicky BustosSodium [Moles/Vol]139 mmol/PLamafm800-333Tyg [facility] Comment on above:Performed By: #### A1C #### [facility] [address] [address] [address] Vicky BustosUrea nitrogen [Mass/Vol]14.0 mg/dLNormal7.0-18.0[facility] CenterComment on above:Performed By: #### A1C #### [facility] [address] [address] [address] Vicky Martinez nitrogen/Creatinine [Mass ratio]15.1 mg/mgNoalThe [facility] CenterComment on above:Performed By: #### A1C #### [facility] [address] [address] [address] Vicky BustosPhysician Referralon 50-44-1118Qqtentmxz Referral [id number]#1.00CD:127St[facility] HospitalOffice Visit (Cardiology)on 37-25-7238Qtncpv-up visitDiagnoses/Problems Assessed Peripheral neuropathy (356.9) (G62.9) Primary [...] Metabolic Panel; Status:Active - Retrospective Authorization; Requested for:[id number]; Lipid Panel; Status:Active - Retrospective Authorization; Requested for:[id number]; Primary hypertension Start: Losartan Potassium-HCTZ 50-12.5 MG [...] (more content not included)...NormalUH TouchworksCARDIAC GERRY 3-6on 16-43-1530GY [Catalytic activity/Vol]134 U/EXkwuxb00-149Jyi [facility] Comment on above:Performed By: #### A1C #### [facility] [address] [place] [address] [address] Vicky Anderson.MB [Mass/Vol]1.32 ng/mLNormal<=3.60The [facility] Comment on above:Performed By: #### A1C #### [facility] [address], [place] [address] Dr. Vicky FrancisTROP7.3 pg/mLNormal4.0-76.1[facility] CenterComment on above:Result Comment: CUT-OFF POINTS HAVE BEEN ESTABLISHED BASED ON THE FOURTH UNIVERSAL DEFINITIONS OF MYOCARDIAL INFARCTION. THE UPPER REFERENCE LIMIT (URL) OF TROPONIN, DEFINED THE 99TH PERCENTILE OF cTnI DISTRIBUTION IN A REFERENCE POPULATION, HAS BEEN CONFIRMED THE DECISION THRESHOLD FOR DE DIAGNOSIS.Performed By: #### A1C #### [facility] [address] [place] [address] Dr. Vicky GARRETT ADMITon 95-16-0449OM [Catalytic activity/Vol]129 U/L Vogcis30-026Uuq [facility] Centerment on above:Performed By: #### CMADM, BMP #### [facility] [address] [place] [address] Dr. Vicky Anderson.MB [Mass/Vol]1.21 ng/mLNormal<=3.60[facility] Comment on above:Performed By: #### CMADM, BMP #### [facility] [address] [place] [address] Dr. Vicky BustosHSTROP5.7 pg/mLNormal4.0-76.1The [facility] on above:Result Comment: CUT-OFF POINTS HAVE BEEN ESTABLISHED BASED ON THE FOURTH UNIVERSAL DEFINITIONS OF MYOCARDIAL INFARCTION. THE UPPER REFERENCE LIMIT (URL) OF TROPONIN, DEFINED THE 99TH PERCENTILE OF cTnI DISTRIBUTION IN A REFERENCE POPULATION, HAS BEEN CONFIRMED THE DECISION THRESHOLD FOR DE DIAGNOSIS.Performed By: #### CMADM, BMP #### [facility] [address] [place] [address] Dr. Vicky To92 ng/wHPuaqig84-21Hsn [facility] on above: Performed By: #### CMADM, BMP #### [facility] [address] [place] [address] Dr. Vicky العلي AUTO DIFFon 96-64-2620QZNA #0.0 103/ulNormal0.0-0.1The [facility] on above:Performed By: #### CBC #### [facility] [address] [place] [address] Dr. Vicky BustosBasophils/100 WBC (Bld)0.4 %Normal0.2-2.0[facility] Comment on above:Performed By: #### CBC #### [facility] [address] [place] [address] [address] Vicky Roy #0.4 103/ulNormal0.0-0.7The [facility] CenterComment on above: Performed By: #### CBC #### [facility] [address] [place] [address] Dr. Vicky Paulosinophils/100 WBC (Bld)5.5 %Normal0.9-7.0The [facility] Comment on above:Performed By: #### CBC #### [facility] [address] [place] [address] Dr. Vicky Paulrythrocyte distribution width (RBC) [Ratio]13.9 %Tckgxq62.0-15.0 The [facility] CenterComment on above:Performed By: #### CBC #### [facility] [address] [place] [address] Dr. Vicky BustosHematocrit (Bld) [Volume fraction]41.1 %Critically low42.0-54.0 The [facility] CenterComment on above:Performed By: #### CBC #### [facility] [address] [place] [address] Dr. Vicky BustosHemoglobin (Bld) [Mass/Vol]13.6 g/dLCritically low14.0-18.0The [facility] Centerment on above:Performed By: #### CBC #### [facility] [address] [place] [address] Dr. Vicky Alfred #0.03 10e3/ulNormal0.00-0.03The [facility] Centerment on above:Performed By: #### CBC #### [facility] [address] [place] [address] Dr. Vicky Alfred %0.4 %Normal0.0-0.5The [facility] CenterComment on above: Performed By: #### CBC #### [facility] [address] [place] [address] Dr. Vicky DonaldsonMPH #1.8 103/ulNormal1.2-3.8The [facility] CenterComment on above:Performed By: #### CBC #### [facility] [address] [place] [address] Dr. Vicky Donaldsonmphocytes/100 WBC (Bld)25.1 %Clnjhq31.5-60.0The [facility] CenterComment on above:Performed By: #### CBC #### [facility] [address] [place] [address] Dr. Vicky MobleyUAL DIFF REQNONormalThe [facility] CenterComment on above: Performed By: #### CBC #### [facility] [address] [place] [address] Dr. Vciky Benjamin (RBC) [Entitic mass]27.4 kuRymbgl25.9-34.0The [facility] Centerment on above:Performed By: #### CBC #### [facility] [address] [place] [address] Dr. Vicky Benjamin (RBC) [Mass/Vol]33.1 g/jBYhhemh33.9-35.2The [facility] CenterComment on above:Performed By: #### CBC #### [facility] [address] [place] [address] Dr. Vicky Benjamin (RBC) [Entitic vol]82.7 bIHggvey13.0-94.0The [facility] Centerment on above:Performed By: #### CBC #### [facility] [address] [place] [address] Dr. Vicky Swann #0.6 103/ulNormal0.3-0.8The [facility] Centerment on above:Performed By: #### CBC #### [facility] [address] [place] [address] Dr. Vicky Ninoocytes/100 WBC (Bld)8.3 %Normal1.7-12.0The [facility] Comment on above:Performed By: #### CBC #### [facility] [address] [place] [address] Dr. Vicky Palacios #4.3 103/ulNormal1.4-6.5The [facility] HospitalComment on above:Performed By: #### CBC #### [facility] [address] [place] [address] [address] Vicky BustosNeutrophils/100 WBC (Bld)60.3 %Elqqmm73.0-75.0The [facility] CenterComment on above:Performed By: #### CBC #### [facility] [address] [place] [address] [address] Vicky BustosPlatelet mean volume (Bld) [Entitic vol]9.4 fLCritically low 9.5-13.5The [facility] CenterComment on above:Performed By: #### CBC #### [facility] [address] [place] [address] [address] Vicky BustosPLT175 103/wdMidjjl488-904Ekd [facility] CenterComment on above: Performed By: #### CBC #### [facility] [address] [place] [address] Dr. Vicky BustosRBC4.97 106/ulNormal4.70-6.10The [facility] CenterComment on above:Performed By: #### CBC #### [facility] [address] [place] [address] [address] Vicky BustosWBC7.1 103/ulNormal4.0-11.0The [facility] CenterComment on above: Performed By: #### CBC #### [facility] [address] [place] [address] [address] Vicky BustosPROF CHEM 8 (BAS METB)on 45-45-8095Ijifz gap [Moles/Vol]12.5 mmol/LNormalThe [facility] CenterComment on above:Performed By: #### CMADM, BMP #### [facility] [address] [place] [address] Dr. Vicky BustosCalcium [Mass/Vol]9.0 mg/dLNormal8.5-10.1The [facility] on above:Performed By: #### CMADM, BMP #### [facility] [address] [place] [address] Dr. Vicky BustosChloride [Moles/Vol]102 mmol/PEmdrql24-812Yox [facility] Comment on above:Performed By: #### CMADM, BMP #### [facility] [address] [place] [address] [address] Vicky BustosCO2 [Moles/Vol]27.3 mmol/TVgbill14.0-32.0The [facility] Comment on above:Performed By: #### CMADM, BMP #### [facility] [address] [place] [address] [address] Vicky BustosCreatinine [Mass/Vol]0.78 mg/dLNormal0.70-1.30The [facility] CenterComment on above:Performed By: #### CMADM, BMP #### [facility] [address] [place] [address] Dr. Vicky PaulGFR-AF GEORGIAN>60Normal>=60The [facility] CenterComment on above:Performed By: #### CMADM, BMP #### [facility] [address] [place] [address] Dr. Vicky PaulGFR-NON AF GEORGIAN>60Normal>=60The [facility] CenterComment on above:Performed By: #### CMADM, BMP #### [facility] [address] [place] [address] Dr. Vicky BustosGlucose [Mass/Vol]160 mg/dLCritically zyql11-648Qdj [facility] CenterComment on above:Performed By: #### CMADM, BMP #### [facility] [address] [place] [address] [address] Vicky BustosPotassium [Moles/Vol]3.8 mmol/LNormal3.5-5.1The [facility] Comment on above:Performed By: #### CMADM, BMP #### [facility] [address] [place] [address] Dr. Vicky BustosSodium [Moles/Vol]138 mmol/DJypyux339-967Qdy [facility] Comment on above:Performed By: #### CMADM, BMP #### [facility] [address] [place] [address] Dr. Yilan ChangUrea nitrogen [Mass/Vol]12.0 mg/dLNormal7.0-18.0[facility] CenterComment on above:Performed By: #### CMADM, SUZAN #### [facility] [address], [place] [address] Dr. Vicky Martinez nitrogen/Creatinine [Mass ratio]15.4 mg/mgNoMemorial HospitalComment on above:Performed By: #### CMADM, BMP #### [facility] [address], [place] [address] Dr. Vicky BustosXR CHEST 1 Von 45-08-2208WF CHEST 1 VEXAMINATION: XR CHEST 1 V HISTORY: Chest pain COMPARISON: None. TECHNIQUE: PA and lateral chest x-rays FINDINGS: The lung parenchyma is free of consolidation or infiltrate. No pneumothorax or pleural effusion. The cardiac, mediastinal and hilar contours are normal. The visualized osseous structures exhibit no gross abnormality. IMPRESSION: No acute cardiopulmonary abnormality. Electronically authenticated by: KALEB LIRA Date: 2022-08-17 22:51[facility] Citizens HospitalECHOCARDIO M/2D COMPLETEon 47-78-7636DWYRZLCBPS M/2D COMPLETE Patient: FRANKIE DE ANDA Exam Date: 08/01/2022 : 1950 Gender:M Ordering : DR WESTON BORJA M.D. Admission #: [id number] Family : Order #: [id number] CLICK HERE TO VIEW EXAM ECHOCARDIOGRAM REPORT PROCEDURE: CARDIO PULMONARY ECHOCARDIO M/2D COMP INDICATIONS: Cardiac murmur, DE, hypertension, diabetes COMPARISON: None. DESCRIPTION: COMPLETE ECHOCARDIOGRAM [...] by: Cristo Gregory M.D. on 08/07/2022 at 09:19NormalThe [facility] AUTO DIFFon 23-76-0004ALJP #0.0 103/ulNormal0.0-0.1The [facility] CenterComment on above:Performed By: #### CBC #### [facility] [address] [place] [address] Dr. Vicky BustosBasophils/100 WBC (Bld)0.4 %Normal0.2-2.0[facility] Comment on above:Performed By: #### CBC #### [facility] [address] [place] [address] Dr. Vicky Roy #0.2 103/ulNormal0.0-0.7The [facility] CenterComment on above: Performed By: #### CBC #### [facility] [address] [place] [address] Dr. Vicky Paulosinophils/100 WBC (Bld)3.9 %Normal0.9-7.0[facility] Comment on above:Performed By: #### CBC #### [facility] [address] [place] [address] Dr. Vicky Paulrythrocyte distribution width (RBC) [Ratio]14.3 %Gdapym01.0-15.0 [facility] CenterComment on above:Performed By: #### CBC #### [facility] [address] [place] [address] Dr. Vicky BustosHematocrit (Bld) [Volume fraction]38.1 %Critically low42.0-54.0 The [facility] CenterComment on above:Performed By: #### CBC #### [facility] [address] [place] [address] Dr. Vicky BustosHemoglobin (Bld) [Mass/Vol]12.6 g/dLCritically low14.0-18.0[facility] CenterComment on above:Performed By: #### CBC #### [facility] [address] [place] [address] Dr. Vicky Alfred #0.05 10e3/ulCritically high0.00-0.03[facility] Comment on above:Performed By: #### CBC #### [facility] [address] [place] [address] Dr. Vicky Alfred %0.9 %Critically high0.0-0.5The [facility] CenterComment on above:Performed By: #### CBC #### [facility] [address] [place] [address] Dr. Vicky Cano #0.9 103/ulCritically low1.2-3.8The [facility] Comment on above:Performed By: #### CBC #### [facility] [address] [place], [place] [address] Dr. Vicky Renteriahocytes/100 WBC (Bld)16.3 %Critically low20.5-60.0The [facility] CenterComment on above:Performed By: #### CBC #### [facility] [address] [place] [address] Dr. Vicky Gardiner DIFF REQNONormalThe [facility] CenterComment on above: Performed By: #### CBC #### [facility] [address] [place] [address] Dr. Vicky Armenta (RBC) [Entitic mass]27.2 cgVgsllb21.9-34.0A[facility] Pike Medical CenterComment on above:Performed By: #### CBC #### [facility] [address] [place] [address] Dr. Vicky Benjamin (RBC) [Mass/Vol]33.1 g/yMLthjie45.9-35.2The [facility] CenterComment on above:Performed By: #### CBC #### [facility] [address] [place] [address] Dr. Vicky Benjamin (RBC) [Entitic vol]82.3 xVTvcctg81.0-94.0The [facility] CenterComment on above:Performed By: #### CBC #### [facility] [address] [place] [address] Dr. Vicky Swann #0.9 103/ulCritically high0.3-0.8The [facility] Comment on above:Performed By: #### CBC #### [facility] [address] [address] [address] Vicky Ninoocytes/100 WBC (Bld)16.7 %Critically high1.7-12.0The [facility] CenterComment on above:Performed By: #### CBC #### [facility] [address] [place] [address] Dr. Vicky Palacios #3.5 103/ulNormal1.4-6.5The [facility] CenterComment on above:Performed By: #### CBC #### [facility] [address] [place] [address] Dr. Vicky Russellutrophils/100 WBC (Bld)61.8 %Amxjpj81.0-75.0The [facility] HospitalComment on above:Performed By: #### CBC #### [facility] [address] [place] [address] Dr. Vicky Cervanteslet mean volume (Bld) [Entitic vol]9.0 fLCritically low 9.5-13.5The [facility] CenterComment on above:Performed By: #### CBC #### [facility] [address] [place] [address] Dr. Vicky BustosPLT136 103/ulCritically rhb334-384Yuj [facility] CenterComment on above:Performed By: #### CBC #### [facility] [address] [place] [address] Dr. Vicky BustosRBC4.63 106/ulCritically low4.70-6.10The [facility] CenterComment on above:Performed By: #### CBC #### [facility] [address] [place] [address] Dr. Vicky BustosWBC5.6 103/ulNormal4.0-11.0The [facility] CenterComment on above: Performed By: #### CBC #### [facility] [address] [place] [address] Dr. Vikcy Pruitt URINE PROFILEon 30-51-1847Fxtinquwn Ql (U)NegativeNormal NEGATIVEAdena Pike Medical CenterComment on above:Performed By: #### ERUR #### [facility] [address] [place] [address] Dr. Vicky BustosClarity (U)CLEARNormalCLEARAdena Pike Medical CenterComment on above: Performed By: #### ERUR #### [facility] [address] [place] [address] Dr. Vicky Reyes (U)LT. YELLOWNormalYELLOWAdena Pike Medical CenterComment on above:Performed By: #### ERUR #### [facility] [address] [place] [address] Dr. Vicky Hinds micrscopic examination will be performed if indicated. NormalAdena Pike Medical CenterComment on above:Performed By: #### ERUR #### [facility] [address] [place] [address] Dr. Vicky BustosGlucose Ql (U)NegativeNormalNEGATIVEAdena Pike Medical CenterComment on above:Performed By: #### ERUR #### [facility] [address] [place] [address] Dr. Vicky BustosHemoglobin Ql (U)SMALLAbnormalNEGATIVEMagruder Hospital on above:Performed By: #### ERUR #### [facility] [address] [place] [address] Dr. Vicky BustosKetones Ql (U)NegativeNormalNEGATIVEAdena Pike Medical CenterComment on above:Performed By: #### ERUR #### [facility] [address] [place] [address] Dr. Vicky BustosLEUKOCYTESNegativeNormalNEGATIVEAdena Pike Medical CenterComment on above:Performed By: #### ERUR #### [facility] [address] [place] [address] Dr. Vicky BustosNitrite Ql (U)NegativeNormalNEGATIVEAdena Pike Medical CenterComment on above:Performed By: #### ERUR #### [facility] [address] [place] [address] Dr. Vicky BustospH (U)5.5 [pH]Normal5-9The [facility] CenterComment on above: Performed By: #### ERUR #### [facility] [address] [place] [address] Dr. Vicky BustosSPEC GRAVITY1.970Unyajd5.005-<=1.025The [facility] CenterComment on above:Performed By: #### ERUR #### [facility] [address] [place] [address] Dr. Vicky Gifford PROTEINTRACENormalNEGATIVE/ TRACEThe [facility] CenterComment on above:Performed By: #### ERUR #### [facility] [address] [place] [address] Dr. Vicky Wu MICRO INDNOT INDICATEDNormalThe [facility] CenterComment on above:Performed By: #### ERUR #### [facility] [address] [place] [address] Dr. Vicky BustosUrobilinogen Qn (U)0.2 {Troy'U}/dLNormal0.2 - 1.0The [facility] CenterComment on above:Performed By: #### ERUR #### [facility] [address] [place] [address] Dr. Vicky ArellanoF CHEM 8 (BAS METB)on 05-85-2453Vsric gap [Moles/Vol]13.3 mmol/LNormalThe [facility] CenterComment on above:Performed By: #### BMP #### [facility] [address] [place] [address] Dr. Vicky BustosCalcium [Mass/Vol]8.6 mg/dLNormal8.5-10.1The [facility] Comment on above:Performed By: #### BMP #### [facility] [address] [place] [address] Dr. Vicky BustosChloride [Moles/Vol]98 mmol/FLlqpnj82-551Eeg [facility] Comment on above:Performed By: #### BMP #### [facility] [address] [address] [address] Vicky BustosCO2 [Moles/Vol]24.9 mmol/MVqzkbe96.0-32.0The [facility] Comment on above:Performed By: #### BMP #### [facility] [address] [place] [address] Dr. Vicky BustosCreatinine [Mass/Vol]1.00 mg/dLNormal0.70-1.30The [facility] CenterComment on above:Performed By: #### BMP #### [facility] [address] [place] [address] Dr. Perry ChangEGFR-AF GEORGIAN>60Normal>=60The [facility] CenterComment on above:Performed By: #### BMP #### [facility] [address] [place] [address] Dr. Vicky PaulGFR-NON AF GEORGIAN>60Normal>=60The [facility] CenterComment on above:Performed By: #### BMP #### [facility] [address] [place] [address] Dr. Vicky BustosGlucose [Mass/Vol]215 mg/dLCritically mcdh70-150Jyl [facility] CenterComment on above:Performed By: #### BMP #### [facility] [address] [place] [address] Dr. Vicky BustosPotassium [Moles/Vol]4.2 mmol/LNormal3.5-5.1The [facility] Comment on above:Performed By: #### BMP #### [facility] [address] [place] [address] Dr. Vicky BustosSodium [Moles/Vol]132 mmol/LCritically vpl369-188Xnn [facility] CenterComment on above:Performed By: #### BMP #### [facility] [address] [place] [address] Dr. Vicky BustosUrea nitrogen [Mass/Vol]11.0 mg/dLNormal7.0-18.0The [facility] CenterComment on above:Performed By: #### BMP #### [facility] [address] [place] [address] Dr. Vicky Martinez nitrogen/Creatinine [Mass ratio]11.0 mg/mgNormalThe [facility] CenterComment on above:Performed By: #### BMP #### [facility] [address] [address] [address] Vicky BustosRESPIRATORY PANEL PLUSon 48-56-0724BbbjvkualdRjg detectedNormal NOT DETECTEDThe [facility] CenterComment on above:Performed By: #### RSPLUS #### [facility] [address] [address] [address] Vicky Orellana ParapertusisNot detectedNormalNOT DETECTEDThe [facility] CenterComment on above:Performed By: #### RSPLUS #### [facility] [address] [place] [address] Dr. Vicky Orellana PertussisNot detectedNormalNOT DETECTEDThe [facility] on above:Performed By: #### RSPLUS #### [facility] [address] [place] [address] Dr. Vicky BustosChlamydia PneumoniaeNot detectedNormalNOT DETECTEDThe [facility] CenterComment on above:Performed By: #### RSPLUS #### [facility] [address] [place] [address] Dr. Vicky BustosCoronavirus 229ENot detectedNormalNOT DETECTEDThe [facility] CenterComment on above:Performed By: #### RSPLUS #### [facility] [address] [address] [address] Vicky BustosCoronavirus FEC5Bwm detectedNormalNOT DETECTEDThe [facility] CenterComment on above:Performed By: #### RSPLUS #### [facility] [address] [address] [address] Vicky BustosCoronavirus JK27Yce detectedNormalNOT DETECTEDThe [facility] CenterComment on above:Performed By: #### RSPLUS #### [facility] [address] [place] [address] Dr. Vicky BustosCoronavirus AE98Gaj detectedNormalNOT DETECTEDThe [facility] CenterComment on above:Performed By: #### RSPLUS #### [facility] [address] [address] [address] Vicky Sun H1Not detectedNormalNOT DETECTEDThe [facility] Comment on above:Performed By: #### RSPLUS #### [facility] [address] [address] [address] Vicky Sun H1 2009Not detectedNormalNOT DETECTEDThe [facility] CenterComment on above:Performed By: #### RSPLUS #### [facility] [address] [address] [address] Vicky Sun H3Not detectedNormalNOT DETECTEDThe [facility] Comment on above:Performed By: #### RSPLUS #### [facility] [address] [address] [address] Vicky Hankins BNot detectedNormalNOT DETECTEDThe [facility] Comment on above:Performed By: #### RSPLUS #### [facility] [address] [address] [address] Vicky EncarnacionneumovirusNot detectedNormalNOT DETECTEDThe [facility] CenterComdetroit receiving hospital on above:Performed By: #### RSPLUS #### [facility] [address] [address] [address] Vicky Hubbard. PneumoniaeNot detectedNormalNOT DETECTEDThe [facility] CenterComdetroit receiving hospital on above:Performed By: #### RSPLUS #### [facility] [address] [address] [address] Vicky Kang 1Not detectedNormalNOT DETECTEDThe [facility] CenterComdetroit receiving hospital on above:Performed By: #### RSPLUS #### [facility] [address] [address] [address] Vicky Kang 2Not detectedNormalNOT DETECTEDThe [facility] CenterComdetroit receiving hospital on above:Performed By: #### RSPLUS #### [facility] [address] [address] [address] Vicky Kang 3Not detectedNormalNOT DETECTEDThe [facility] Centerment on above:Performed By: #### RSPLUS #### [facility] [address] [place] [address] Dr. Vicky Shepardfluenza 4Not detectedNormalNOT DETECTEDThe [facility] on above:Performed By: #### RSPLUS #### [facility] [address] [place] [address] Dr. Vicky BustosRhino/EnterovirusNot detectedNormalNOT DETECTEDThe [facility] CenterComment on above:Performed By: #### RSPLUS #### [facility] [address] [place] [address] Dr. Vicky You Header 1RESPIRATORY PANEL: VIRUSESBarberton Citizens Hospital Comment on above:Performed By: #### RSPLUS #### [facility] [address] [place] [address] Dr. Vicyk You Header 2RESPIRATORY PANEL: BACTERIANoMemorial HospitalComment on above:Performed By: #### RSPLUS #### [facility] [address] [place] [address] Dr. Vicky McfarlandVNot detectedNormalNOT DETECTEDThe [facility] on above:Performed By: #### RSPLUS #### [facility] [address] [place] [address] Dr. Vicky Horton-CoV-2 (COVID-19) RNA JEFF+probe Ql (Unsp spec)Detected AbnormalNOT DETECTEDThe [facility] on above:Performed By: #### RSPLUS #### [facility] [address] [place] [address] Dr. Vicky Hutson, FREE AND TOTAL RATIOon 01-15-2022% Free PSA28.5 %NormalThe [facility] on above:Result Comment: The table below lists [...] population of men.Performed By: #### A1C #### [facility] [address] [place] [address] Dr. Vicky Rhoades specific Ag [Mass/Vol]1.3 ng/mLNormal0.0-4.0The [facility] CenterComment on above:Result Comment: Thais ECLIA methodology. . According to the [employer], Serum PSA should decrease and [...] of malignant disease.Performed By: #### A1C #### [facility] [address] [place] [address] Dr. Vicky Hutson, Free0.37 ng/mLNormalN/AThe [facility] CenterComment on above:Result Comment: Thais ECLIA methodology.Performed By: #### A1C #### [facility] [address] [place] [address] Dr. Vicky العلي AUTO DIFFon [id number] #0.1 103/ulNormal0.0-0.1The [facility] CenterComment on above:Performed By: #### CBC #### [facility] [address] [place] [address] Dr. Vicky BustosBasophils/100 WBC (Bld)0.7 %Normal0.2-2.0The [facility] Comment on above:Performed By: #### CBC #### [facility] [address] [place] [address] Dr. Perry ChangEO #0.5 103/ulNormal0.0-0.7The [facility] CenterComment on above: Performed By: #### CBC #### [facility] [address] [address] [address] Vicky Paulosinophils/100 WBC (Bld)6.8 %Normal0.9-7.0The [facility] Comment on above:Performed By: #### CBC #### [facility] [address] [place] [address] Dr. Vicky Paulrythrocyte distribution width (RBC) [Ratio]13.9 %Rfzmyh07.0-15.0 The [facility] CenterComment on above:Performed By: #### CBC #### [facility] [address] [place] [address] Dr. Vicky BustosHematocrit (Bld) [Volume fraction]44.6 %Fadycr28.0-54.0The [facility] CenterComment on above:Performed By: #### CBC #### [facility] [address] [place] [address] Dr. Vicky BustosHemoglobin (Bld) [Mass/Vol]14.7 g/tYZdbmtn28.0-18.0The [facility] CenterComment on above:Performed By: #### CBC #### [facility] [address] [place] [address] Dr. Vicky Alfred #0.04 10e3/ulCritically high0.00-0.03The [facility] Comment on above:Performed By: #### CBC #### [facility] [address] [place] [address] Dr. Vicky Alfred %0.6 %Critically high0.0-0.5The [facility] CenterComment on above:Performed By: #### CBC #### [facility] [address] [place] [address] Dr. Vicky RenteriaH #2.5 103/ulNormal1.2-3.8The [facility] CenterComment on above:Performed By: #### CBC #### [facility] [address] [place] [address] Dr. Vicky Donaldsonmphocytes/100 WBC (Bld)35.8 %Nfvyrt22.5-60.0The [facility] CenterComment on above:Performed By: #### CBC #### [facility] [address] [place] [address] Dr. Vicky Gardiner DIFF REQNONormalThe [facility] CenterComment on above: Performed By: #### CBC #### [facility] [address] [place] [address] Dr. Vicky Benjamin (RBC) [Entitic mass]27.7 euUrmeqq48.9-34.0The [facility] HospitalComment on above:Performed By: #### CBC #### [facility] [address] [place] [address] Dr. Vicky Benjamin (RBC) [Mass/Vol]33.0 g/iHYqytyn88.9-35.2The [facility] CenterComment on above:Performed By: #### CBC #### [facility] [address] [place] [address] Dr. Vicky Benjamin (RBC) [Entitic vol]84.0 cAZoqylg59.0-94.0The [facility] CenterComment on above:Performed By: #### CBC #### [facility] [address] [place] [address] Dr. Vicky Swann #0.5 103/ulNormal0.3-0.8The [facility] CenterComment on above:Performed By: #### CBC #### [facility] [address] [place] [address] Dr. Vicky Ninoocytes/100 WBC (Bld)7.3 %Normal1.7-12.0The [facility] Comment on above:Performed By: #### CBC #### [facility] [address] [place] [address] Dr. Vicky Palacios #3.4 103/ulNormal1.4-6.5The [facility] CenterComment on above:Performed By: #### CBC #### [facility] [address] [place] [address] Dr. Vicky Russellutrophils/100 WBC (Bld)48.8 %Mdpvoz69.0-75.0The [facility] CenterComment on above:Performed By: #### CBC #### [facility] [address] [address] [address] Vicky BustosPlatelet mean volume (Bld) [Entitic vol]8.6 fLCritically low 9.5-13.5The [facility] CenterComment on above:Performed By: #### CBC #### [facility] [address] [place] [address] Dr. Vicky BustosPLT205 103/auYimqaf298-033Aiy [facility] CenterComdetroit receiving hospital on above: Performed By: #### CBC #### [facility] [address] [place] [address] Dr. Vicky BustosRBC5.31 106/ulNormal4.70-6.10The [facility] CenterComment on above:Performed By: #### CBC #### [facility] [address] [place] [address] Dr. Vicky BustosWBC7.0 103/ulNormal4.0-11.0The [facility] CenterComment on above: Performed By: #### CBC #### [facility] [address] [place] [address] Dr. Vicky BustosGLYCOHEMOGLOBIN A1Con 77-27-0100JMR RECOMMENDATIONSEE BELOWNormal [facility] CenterComdetroit receiving hospital on above:Result Comment: ADA RECOMMENDED LIMIT 4.0 - 6.0 ADA THERAPEUTIC TARGET < 7.0 ACTION SUGGESTED > 7.0Performed By: #### A1C #### [facility] [address] [place] [address] Dr. Vicky BustosGlucose [Mass/Vol]148 mg/dLNormalThUC HealthComdetroit receiving hospital on above:Performed By: #### A1C #### [facility] [address] [place] [address] Dr. Vicky BustosHbA1c (Bld) [Mass fraction]6.8 %Critically high4.5-6.2The [facility] on above:Performed By: #### A1C #### [facility] [address] [place] [address] Dr. Vicky CottonID PROFILEon 76-10-5025UUEX-HDL RATIO NORMSEE [facility] RehabilitationComdet[facility] on above:Result Comment: 3.3 - 4.4 LOW RISK 4.4 - 7.1 AVERAGE RISK 7.1 - 11.0 MODERATE RISK >11.0 HIGH RISKPerformed By: #### A1C #### [facility] [address] [address] [address] Vicky BustosCholesterol [Mass/Vol]237 mg/dLCritically high<=200The [facility] CenterComdetroit receiving hospital on above:Performed By: #### A1C #### [facility] [address] [address] [address] Vicky BustosCholesterol in HDL [Mass/Vol]54 mg/pIQjhvhp63-97RmbAdena Pike Medical CenterComdetroit receiving hospital on above:Performed By: #### A1C #### [facility] [address] [address] [address] Vicky BustosCholesterol in LDL [Mass/Vol]161.6 mg/dLBarberton Citizens HospitalComdetroit receiving hospital on above:Performed By: #### A1C #### [facility] [address] [address] [address] Vicky Carvajalesterhugo.total/Cholesterol in HDL [Mass ratio]4.4 {ratio} NormalUniversity Hospitals [facility] on above:Performed By: #### A1C #### [facility] [address] [address] [address] Vicky Mancilla NORMAL> or = 60 mg/dl - LOW CARDIOVASCULAR RISK <40 mg/dl - HIGH CARDIOVASCULAR RISKBarberton Citizens HospitalComdetroit receiving hospital on above:Performed By: #### A1C #### [facility] [address] [address] [address] Vicky BustosLDL CALC NORMALSEE [facility] RehabilitationComdet[facility] on above:Result Comment: <100 mg/dl OPTIMAL 100 - 129 mg/dl NEAR OR ABOVE OPTIMAL 130 - 159 mg/dl BORDERLINE HIGH 160 - 189 mg/dl HIGH >190 mg/dl VERY HIGH Performed By: #### A1C #### [facility] [address] [address] [address] Vicky BustosTriglyceride [Mass/Vol]107 mg/dLNormal<=150The [facility] Comment on above:Performed By: #### A1C #### [facility] [address] [address] [address] Vicky BustosVLDL CALC21.4 mg/dLNormalThe [facility] CenterComment on above: Performed By: #### A1C #### [facility] [address] [address] [address] Vicky BustosPROF 14(COMP METB)on 33-96-7503Azybvtj [Mass/Vol]3.8 g/dLNormal 3.4-5.0The [facility] CenterComment on above:Performed By: #### A1C #### [facility] [address] [place] [address] Dr. Vicky BustosAlbumin/Globulin [Mass ratio]1.0 {ratio}NormalThe [facility] CenterComment on above:Performed By: #### A1C #### [facility] [address] [place] [address] Dr. Vicky Glasgow [Catalytic activity/Vol]77 U/AXfnjvb16-454Nkd [facility] CenterComment on above:Performed By: #### A1C #### [facility] [address] [place] [address] Dr. Vicky Diez [Catalytic activity/Vol]17 U/MBwdeeu15-34Fnr [facility] CenterComment on above:Performed By: #### A1C #### [facility] [address] [place] [address] Dr. Vicky Jessica gap [Moles/Vol]12.2 mmol/LNormalThe [facility] Comment on above:Performed By: #### A1C #### [facility] [address] [place] [address] Dr. Vicky Lindsey [Catalytic activity/Vol]13 U/LCritically gsg82-74Fyz [facility] CenterComment on above:Performed By: #### A1C #### [facility] [address] [place] [address] Dr. Vicky BustosBilirubin [Mass/Vol]1.0 mg/dLNormal0.2-1.0The [facility] Comment on above:Performed By: #### A1C #### [facility] [address] [address] [address] Vicky BustosCalcium [Mass/Vol]8.7 mg/dLNormal8.5-10.1The [facility] Comment on above:Performed By: #### A1C #### [facility] [address] [address] [address] Vicky BustosChloride [Moles/Vol]100 mmol/NLcoeux35-493Rto [facility] Comment on above:Performed By: #### A1C #### [facility] [facility] [address] [place] [address] Dr. Vicky BustosCO2 [Moles/Vol]27.1 mmol/YUuwnaj44.0-32.0[facility] Comment on above:Performed By: #### A1C #### [facility] [address] [place] [address] Dr. Vicky BustosCreatinine [Mass/Vol]0.92 mg/dLNormal0.70-1.30[facility] CenterComment on above:Performed By: #### A1C #### [facility] [address] [place] [address] Dr. Vicky PaulGFR-AF GEORGIAN>60Normal>=60[facility] CenterComment on above:Performed By: #### A1C #### [facility] [address] [address] [address] Vicky PaulGFR-NON AF GEORGIAN>60Normal>=60[facility] CenterComment on above:Performed By: #### A1C #### [facility] [address] [address] [address] Vicky BustosGlobulin (S) [Mass/Vol]3.9 g/dLNormalThe [facility] CenterComment on above:Performed By: #### A1C #### [facility] [address] [address] [address] Vicky BustosGlucose [Mass/Vol]120 mg/dLCritically ryfy22-708Ekw [facility] CenterComment on above:Performed By: #### A1C #### [facility] [address] [address] [address] Vicky BustosPotassium [Moles/Vol]4.3 mmol/LNormal3.5-5.1[facility] Comment on above:Performed By: #### A1C #### [facility] [address] [address] [address] Vicky BustosProtein [Mass/Vol]7.7 g/dLNormal6.4-8.2[facility] Comment on above:Performed By: #### A1C #### [facility] [address] [place] [address] Dr. Vicky BustosSodium [Moles/Vol]135 mmol/LCritically qzy170-814Zfg [facility] CenterComment on above:Performed By: #### A1C #### [facility] [address] [address] [address] Vicky BustosUrea nitrogen [Mass/Vol]18.0 mg/dLNormal7.0-18.0[facility] CenterComment on above:Performed By: #### A1C #### [facility] [address] [place] [address] Dr. Vicky BustosUrea nitrogen/Creatinine [Mass ratio]19.6 mg/mgNormalThe [facility] CenterComment on above:Performed By: #### A1C #### [facility] [address] [place] [address] Dr. Vicky BustosCovid-19 PCR (CVDTB)on 53-81-3432ELXB-CoV-2 (COVID-19) RNA JEFF+probe Ql (Unsp spec)Not detectedNormalNOT DETECTEDThe [facility] Comment on above:Result Comment: This test is not yet approved or cleared by the [place] FDA. When there are no FDA-approved or cleared tests available, and other criteria are met, FDA can make tests available under an emergency access mechanism called an Emergency Use Authorization (EUA). The EUA for this test is supported by the [place] of Health and Human Service's (HHS's) declaration [...] consistent with SARS-CoV-2.Performed By: #### CVDTBH #### [facility] [address] [place] [address] Dr. Vicky BustosUS carotid doppler BIon 84-58-6829OQ carotid doppler [facility] [place] [place] [address] Ultrasound Report Signed Patient: Frankie De Anda MR#: [id number] : 1950 Acct:[id number] Age/Sex: 71 / M ADM Date: 11/12/21 Loc: [facility] Room: Type: [facility] Attending Dr: Melchor Mondragon MD Ordering [...] Melchor Mondragon M.D.11/12/2021 1:08 PM Dictation Location: [place] [address] Tech: Jaye Matos Transcribed By: STAN 11/12/21 1308 Dictated By: Melchor Mondragon MD 11/12/21 1308 Signed By: 11/12/21 1308[facility] Vital Signs Date TimeVital SignValuePerforming VkomhjsgzDgnfjgpv75-80-1422 13:36-0400Body .1 cmAntwon Estrada MD Work Phone: [facility] HospitalVjprvitnnx67-30-7106 13:36-0400Body mass index (BMI) [Ratio]32.95 kg/e0QlfpeoAntwon Estrada MD Work Phone: [facility] HospitalWnzazxwouf92-78-3711 13:36-0400Body dnfziy40.81 kgAntwon Estrada MD Work Phone: [facility] HospitalIdthmfsedj22-94-1419 13:36-0400Diastolic blood rkxrnnwi75 mm[Hg]Antwon Estrada MD Work Phone: [facility] HospitalQlpcfpdwgv92-30-9279 13:36-0400Heart rate82 /min Antwon Estrada MD Work Phone: [facility] HospitalXoepthzoxv25-24-8597 13:36-0400Systolic blood yevdrqvw669 mm[Hg]Antwon Estrada MD Work Phone: [facility] HospitalGrfkfzewpa77-16-6767 14:01-0400Body ctswda425.1 cmAntwon Estrada MD Work Phone: [facility] HospitalZdsbzhapsy53-70-0352 14:01-0400Body mass index (BMI) [Ratio]32.95 kg/g3GzhaojAntwon Estrada MD Work Phone: [phone] HospitalLdqgfskkyi63-25-0644 14:01-0400Body paxyjb88.81 Jon Estrada MD Work Phone: [facility] HospitalBvlqeadxai89-46-4132 14:01-0400Diastolic blood atlaacbc55 mm[Hg]Antwon Estrada MD Work Phone: [phone] HospitalUclwjqoviz55-55-9875 14:01-0400Heart rate81 /min Antwon Estrada MD Work Phone: [phone] HospitalLmknlxibkj55-69-1423 14:01-0400Systolic blood zlykjvcu499 mm[Hg]Antwon Estrada MD Work Phone: [place] [address]Hnqabyavld21-20-7374 15:23-0400Body yixcrq703.1 Alexander Borja MD Work Phone: [place] [address]Kerrshqowh91-20-3770 15:23-0400Body mass index (BMI) [Ratio]32.95 kg/q3CfscihWeston Borja MD Work Phone: [place] [address]Ynbgcfyywg38-94-4818 15:23-0400Body wcxilh01.81 kgWeston Borja MD Work Phone: [facility] CenterJkudvrcdsr79-16-7011 15:23-0400Diastolic blood qjwwkatq74 mm[Hg]Weston Borja MD Work Phone: NOBoth[facility] CenterGlzgzmvnmn30-66-9140 15:23-0400Heart rate78 /min Weston Borja MD Work Phone: NOBoth[facility] CenterTyjpgcsqju24-63-4112 15:23-4381IyE9% (BldA) [Mass fraction]97 %Weston Borja MD Work Phone: [facility] HospitalNmmlgzsylh29-10-7063 15:23-0400Systolic blood shamdjix537 mm[Hg]Weston Borja MD Work Phone: [facility] HospitalHljryyvdux57-22-5598 14:02-0400Body yqzccs136.1 cmSdeepa Black TRAIN INSPECTOR Work Phone: [facility] HospitalDzwiuqwsni94-84-2964 14:02-0400Body mass index (BMI) [Ratio]33.45 kg/m7DhqczfMerry Black TRAIN INSPECTOR Work Phone: [facility] HospitalLmdzidefrd79-41-6692 14:02-0400Body lflaph79.17 kgMerry Black TRAIN INSPECTOR Work Phone: [facility] HospitalWubyqzbnyb49-16-4290 14:02-0400Diastolic blood wvoefuuv09 mm[Hg]Merry Black TRAIN INSPECTOR Work Phone: NOBoth[facility] CenterEfphzobfww69-05-6473 14:02-0400Heart rate72 /min Merry Black TRAIN INSPECTOR Work Phone: [facility] HospitalNiiocyueih54-02-4580 14:02-0400Respiratory rate16 /minSdeepa Black TRAIN INSPECTOR Work Phone: NOBoth[facility] CenterLbixpjyomo88-65-8342 14:02-4746EfU5% (BldA) [Mass fraction]98 %Merry Black TRAIN INSPECTOR Work Phone: NOBoth[facility] CenterTcbostblqd54-90-5994 14:02-0400Systolic blood yytwjnat034 mm[Hg]Merry Black TRAIN INSPECTOR Work Phone: NO[facility] CenterMwafsbpacr27-61-9476 15:12-0400Body azgeot075.1 cmSdeepa Black TRAIN INSPECTOR Work Phone: NO[facility] CenterFwnxovafwr40-57-6213 15:12-0400Body mass index (BMI) [Ratio]33.45 kg/m9KopvtkMerry Garcíavely TRAIN INSPECTOR Work Phone: NO[facility] CenterTzkrpikwem19-96-0227 15:12-0400Body zhiefx62.17 kgMerry Garcíavely TRAIN INSPECTOR Work Phone: [phone] [place], [place] [address]Sxitbfxzrs92-88-8073 15:12-0400Diastolic blood pcaqwbvy81 mm[Hg]Merry Blcak TRAIN INSPECTOR Work Phone: [facility] HospitalXicdjhkzqe14-49-1225 15:12-0400Heart rate75 /min Merry Black TRAIN INSPECTOR Work Phone: [facility] HospitalIxojqniuyq71-20-5976 15:12-0400Respiratory rate17 /minSdeepa Black TRAIN INSPECTOR Work Phone: [phone])[facility]-9340[facility] HospitalCglpslynmg25-06-3774 15:12-2594QvQ6% (BldA) [Mass fraction]98 %Merry Black TRAIN INSPECTOR Work Phone: [facility] HospitalKrcowhaeqk99-35-6378 15:12-0400Systolic blood rycfgpmi785 mm[Hg]Merry Black TRAIN INSPECTOR Work Phone: [facility] HospitalVmsvwnvwwx75-09-9568 14:17-0400Body regvsq882.1 Alexander Borja MD Work Phone: NO[facility] CenterRfuaxbibux89-98-6312 14:17-0400Body mass index (BMI) [Ratio]34.45 kg/x1SzmtiaWeston Borja MD Work Phone: NO[facility] CenterZtlmvmpfgs71-99-0841 14:17-0400Body gknqin68.89 kgWeston Borja MD Work Phone: [facility] CenterCpnmlcwopj75-78-2127 14:17-0400Diastolic blood blnjajyy19 mm[Hg]Weston Borja MD Work Phone: NO[facility] CenterLknywnhghv86-01-8342 14:17-0400Heart rate75 /min Weston Borja MD Work Phone: [facility] HospitalGfvzaxurez10-37-7247 14:17-9897EiM4% (BldA) [Mass fraction]97 %Weston Borja MD Work Phone: [phone])[facility]-6439[facility] HospitalGwmjrethmv39-40-2413 14:17-0400Systolic blood myhsrfqx638 mm[Hg]Weston Borja MD Work Phone: 1(459)[facility]-[address] [place], [place] [address]Ybouaxjsnc81-45-6283 13:50-0400Body atistd503.1 cmKaren Hemmer PA Work Phone: 1(487)[facility]-[address] [place], [place] [address]Blaotgrvyo39-77-8700 13:50-0400Body mass index (BMI) [Ratio]34.25 kg/u0Ytomf Hemmer PA Work Phone: 1(613)[facility]-[address] [place], [place] [address]Fxmnbjwlrs57-28-2285 13:50-0400Body vgsygf10.35 kgKaren Hemmer PA Work Phone: 1(260)[facility]-[address] [place], [place] [address]Edavhrcjea96-21-9541 13:50-0400Diastolic blood ncuihuyu74 mm[Hg]Tita Hemmer PA Work Phone: 1(826)[facility]-[address] [place], [place] [address]Hewrsbmaly53-86-7743 13:50-0400Heart rate83 /min Tita Hemmer PA Work Phone: 1(355)[facility]-[address] [place], [place] [address]Cbeysrfqlf32-96-5066 13:50-0400Respiratory rate16 /minKaren Hemmer PA Work Phone: [phone])[facility]-6898[facility] HospitalZugchvubna07-32-7717 13:50-0398OyW3% (BldA) [Mass fraction]97 %Tita Hemmer PA Work Phone: 1(555)[facility]-[address] [place], [place] [address]Phwktcvyov65-04-9157 13:50-0400Systolic blood wzhqakrt539 mm[Hg]Tita Hemmer PA Work Phone: 1(955)[facility]-[address] [place], [place] [address]Iwyuwfapbp33-16-8472 13:59-0400Body hommsx772.1 cmWeston Borja MD Work Phone: 1(024)[facility]-[address] [place], [place] [address]Dxocsfbuvr91-03-0625 13:59-0400Body mass index (BMI) [Ratio]34.28 kg/v9ZqytycWeston Borja MD Work Phone: 1(026)[facility]-[address] [place], [place] [address]Lqadjgzldg41-84-0801 13:59-0400Body .44 kgWeston Borja MD Work Phone: NO[facility] CenterDbuakzvluh30-61-9772 13:59-0400Diastolic blood csopjusu14 mm[Hg]Weston Borja MD Work Phone: NO[facility] CenterYidsssgojt13-79-5122 13:59-0400Heart rate73 /min Weston Borja MD Work Phone: NO[facility] CenterNiwbvertuz60-08-2085 13:59-3585ObY8% (BldA) [Mass fraction]100 %Weston Borja MD Work Phone: NO[facility] CenterNlabitcrii93-30-3098 13:59-0400Systolic blood mm[Hg]Weston Borja MD Work Phone: [phone] HospitalPcrammtqhe35-74-5212 14:23-0500Body mass index (BMI) [Ratio]34.68 kg/w3SwpdayWeston Borja MD Work Phone: [facility] HospitalQhddmaowzu98-40-9809 14:23-0500Body ycihal39.53 kgWeston Borja MD Work Phone: [facility] HospitalBjwzwhdbyq03-29-1396 14:23-0500Diastolic blood rasuqkeh45 mm[Hg]Weston Borja MD Work Phone: [facility] HospitalWcwyfugceu60-44-9722 14:23-0500Heart rate68 /min Weston Borja MD Work Phone: NO[facility] CenterMikuqqbtej52-08-3469 14:23-0500Respiratory rate20 /minDepi Borja MD Work Phone: NO[facility] CenterQuifkwzare12-60-4343 14:23-9460GmJ3% (BldA) [Mass fraction]99 %Weston Borja MD Work Phone: NO[facility] CenterUyjlyzeauw98-88-3431 14:23-0500Systolic blood mnqovhho968 mm[Hg]Weston Borja MD Work Phone: NO[facility] CenterDujrrbctop34-36-5712 15:40-0500Diastolic blood ikcdmidt35 mm[Hg]Tita DERAS Work Phone: [facility] HospitalDltspplmnc67-79-4307 15:40-0500Systolic blood dwuuuqpu823 mm[Hg]Tita Hemmer PA Work Phone: [facility] HospitalMqwpyzgaqd33-95-3349 15:01-0500Body .1 cmKaren Hemmer PA Work Phone: [facility] HospitalGisixaolbo31-58-0089 15:01-0500Body mass index (BMI) [Ratio]34.85 kg/t8Gfzuo Hemmer PA Work Phone: [facility] HospitalUfahujcdus77-26-1984 15:01-0500Body temperature 98.2 [degF]Tita Hemmer PA Work Phone: [facility] HospitalLrcbgpdmno52-19-9380 15:01-0500Body cydjwf44.98 kgKaren Hemmer PA Work Phone: [facility] HospitalBnkcfmqcox38-76-2522 15:01-0500Heart rate72 /min Tita Hemmer PA Work Phone: [facility] HospitalCnpoxavjbk28-39-8802 15:01-0500Respiratory rate16 /minKaren Hemmer PA Work Phone: [facility] HospitalIjfeyjezab87-75-4422 15:01-5981YhY8% (BldA) [Mass fraction]97 %Tita Hemmer PA Work Phone: [facility] HospitalTxgravfakq63-80-1811 15:26-0500Body bdcsya945.1 cmWeston Borja MD Work Phone: [facility] HospitalBvtjiwqrft53-70-6123 15:26-0500Body mass index (BMI) [Ratio]35.11 kg/v2HgpomaWeston Borja MD Work Phone: [facility] HospitalZywrbcwkfi51-88-9120 15:26-0500Body fzaiwp70.71 kgWeston Borja MD Work Phone: [facility] HospitalZmbubkxkrb85-07-6712 15:26-0500Diastolic blood mm[Hg]Weston Borja MD Work Phone: [facility] HospitalOavlxurqbh85-15-0227 15:26-0500Heart rate74 /min Weston Borja MD Work Phone: 1([phone] [place], [place] [address]Uiqlpvehvb05-08-3049 15:26-0533WjJ3% (BldA) [Mass fraction]97 %Weston Borja MD Work Phone: 1(320)917-[address] [place], [place] [address]Iyntnxtptf92-54-2732 15:26-0500Systolic blood stpemfvw987 mm[Hg]Weston Borja MD Work Phone: 1(396)[facility] [place], [place] [address]Ioeeyngphp89-66-2484 13:43-0400Body kpdtuh838.1 cmWeston Borja MD Work Phone: 1(883)[facility] [place], [place] [address]Vpyjyobjjf73-60-3256 13:43-0400Body mass index (BMI) [Ratio]34.28 kg/b3IjcvvzWeston Borja MD Work Phone: 1(614)[facility] [place], [place] [address]Mblkkxymzs66-58-2473 13:43-0400Body waltxj83.44 kgWeston Borja MD Work Phone: 1(310)[facility]-[address] [place], [place] [address]Xlzbumieme83-01-7725 13:43-0400Diastolic blood ubaczpkr80 mm[Hg]Weston Borja MD Work Phone: 1(940)458-[address] [place], [place] [address]Lpifsgiuaj87-51-0990 13:43-0400Heart rate86 /min Weston Borja MD Work Phone: 1(600)[facility] [place], [place] [address]Ilofymgqqb66-71-0513 13:43-9919VjQ5% (BldA) [Mass fraction]99 %Weston Borja MD Work Phone: 1(787)[address] [place], [place] [address]Rpsnkktvjh20-76-5879 13:43-0400Systolic blood jinombjs943 mm[Hg]Weston Borja MD Work Phone: 1(557)[facility] [place], [place] [address]Gbpxmuarlk81-63-0131 13:16-0400Body .18 cm[facility]07-09[facility]2024 13:16-0400Body mass index (BMI) [Ratio]31.3 kg/j8IbaqosvmfSelect [facility]ty [facility] [place]07-09-2024 13:16-0400Body ijwibmvzvgt18.7 [degF][facility]07-09-2024 13:16-0400Body .71 kgSelect [facility] [place]07-09-2024 13:16-0400Diastolic blood sgzigkhs68 mm[Hg][facility]07-09-2024 13:16-0400 Heart rate74 /minFirOhio [facility] Surgical [facility]07-09-2024 13:16-4486LsP0% (BldA) [Mass fraction]97 %[facility]07-09-2024 13:16-0400 Systolic blood gfokgexi463 mm[Hg][facility]06-20-2023 15:35-0400Blood Pressure LocationMichael NILL [facility] Uvcpjxak70-03-3868 15:35-0400Diastolic blood qehhblbp65 mm[Hg][place] NILL [facility] Psikkmef22-39-9860 15:35-0400Heart rate 76 /minMichael NILL [facility] Dtftssdb34-78-0303 15:35-0400 Respiratory rate16 /minMichael NILL [facility] Sfafxssj36-01-1748 15:35-0400Systolic blood fcmkafhm067 mm[Hg][place] N[facility] Xcgbpgdr43-39-2656 14:14-0400Blood Pressure LocationMichael NILL [facility] Rzxlriho62-92-0304 14:14-0400Diastolic blood mm[Hg][place] N[facility] Ztuwgrsk83-22-4362 14:14-0400Heart rate 70 /minMichael NILL [facility] Oeekssch89-99-7209 14:14-0400 Respiratory rate16 /minMichael NILL [facility] Etpeibae03-99-0444 14:14-0400Systolic blood wdipnhrw100 mm[Hg][place] NILL [facility] Prbctvyg68-79-6055 14:00-0400Body novfjx484.64 cmJudith Gibson Other [employer] Other 06-14-2022 14:00-0400Body mass index (BMI) [Ratio] 30.66 kg/f9KztshtJudith Gibson Other [employer] Other 06-14-2022 14:00-0400Body oonidbzgtos58 [degF]Judith Gibson Other [employer] Other 06-14-2022 14:00-0400Body tvqube91.18 kgJudith Gibson Other [employer] Other 06-14-2022 14:00-0400Diastolic blood lftzakmw36 mm[Hg] Judith Guyorquidea Other [employer] Other 06-14-2022 14:00-0400Respiratory rate18 /minJudith Gibson Other [employer] Other 06-14-2022 14:00-6128TyH3% (BldA) [Mass fraction]98 % Judith Guycheriemarbella Other [employer] Other 06-14-2022 14:00-0400Systolic blood fahdqkcn546 mm[Hg] Judith Guycheriemarbella Other [employer] Other Encounters Encounter DateEncounter TypeCare ProviderFacilityStart: 03-29-2025 End: 39-13-3363Arqabr vijayheetAntwon Estrada MD Work Phone: [facility] OtolaryngologyStart: 03-29-2025 End: 53-57-6459Rykyvz Rhina Estrada MD Work Phone: [facility] OtolaryngologyStart: 03-29-2025 End: 73-99-0647ndjchaaskrPBVWNP H TIMMISNot AvailableStart: 03-29-2025 End: 62-31-0065Hadhcz outpatient visit 25 minutesAntwon Estrada MD Work Phone: [facility] OtolaryngologyComment on above:OME (otitis media with effusion), right (Primary Dx); Chronic dysfunction of right eustachian tube; CSF otorrhea; Hypertension, unspecified type; Nasal polypStart: 03-10-2025 End: 27-44-2717Itkvgargm Result EncounterGeneric External Data ProviderNOMS External Department UnsolicitedStart: 03-10-2025 End: 35-45-0007Mqrrtxgrh Result EncounterGeneric External Data ProviderNOMS External Department UnsolicitedStart: 03-03-2025 End: 43-53-5238NfwtrkKpsng M Hemmer PA Work Phone: [facility] [address] [place] [address] MedicineComment on above: Dysfunction of right eustachian tubeEczema, unspecified typeStart: 02-21-2025 End: 48-86-7330Lhibfhbetsy Estrada MD Work Phone: [facility] Morayde OtolaryngologyStart: 02-21-2025 End: 34-50-9397Jbrupfbetsy Estrada MD Work Phone: [facility] OtolaryngologyStart: 02-21-2025 End: 12-87-1928Ygktwx outpatient new 45 minutesAntwon Estrada MD Work Phone: [facility] OtolaryngologyComment on above:OME (otitis media with effusion), right (Primary Dx); Chronic dysfunction of right eustachian tube; CSF otorrheaStart: 02-21-2025 End: 67-61-5099dbfzlydcblCCKYDA H TIMMISNot AvailableStart: 02-13-2025 End: 26-09-8072Vkasfp outpatient visit 25 minutesWeston Borja MD Work Phone: [facility] Victor MedinceComment on above:Idiopathic progressive neuropathy (Primary Dx); 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, without long-term current use of insulin, unspecified laterality (HCC); Essential (primary) hypertension ; Allergic rhinitis, unspecified seasonality, unspecified trigger; Chronic dysfunction of right eustachian tubeStart: 02-13-2025 End: 52-05-9729lxnutrelyeFDGDSC B BERRYNot AvailableStart: 02-13-2025 End: 06-95-2796Emlasb Peg Borja MD Work Phone: [facility] Victor MedinceStart: 02-13-2025 End: 21-97-1870Fhqsdi Peg Borja MD Work Phone: [facility] Victor MedinceStart: 02-01-2025 End: 11-83-2948Vjnyduanr encounterWeston Borja MD Work Phone: [facility] Victor MedinceStart: 01-12-2025 End: 33-98-0872Zigfqh Bautista Black TRAIN INSPECTOR Work Phone: [facility] Victor MedinceStart: 01-12-2025 End: 01-35-9085Gomdhsbetsy Black TRAIN INSPECTOR Work Phone: [facility] Family MedinceStart: 01-12-2025 End: 39-38-9486Ryrrln outpatient visit 25 minutesMerry Black TRAIN INSPECTOR Work Phone: [facility] Victor MedinceComment on above:Atopic dermatitis, unspecified type (Primary Dx); FolliculitisStart: 01-12-2025 End: 99-40-7025lbppcsrkfuKPHOMVThierry Mitchell AvailableStart: 01-05-2025 End: 75-00-0415rllswxocgpOVSEJC M SHIVELYNot AvailableStart: 01-05-2025 End: 47-60-2696Axbsqx outpatient visit 25 minutesMerry Black TRAIN INSPECTOR Work Phone: [facility] Victor MedinceComment on above:Essential (primary) hypertension (Primary Dx)Start: 12-26-2024 End: 55-96-9835Bylrphykh encounterWeston Borja MD Work Phone: [facility] Victor MedinceComment on above:Med Refill Start: 12-01-2024 End: 03-43-6728Xkhhfk flowsLuma Borja MD Work Phone: [facility] CI FMStart: 12-01-2024 End: 60-65-6813Vydqiq Peg Borja MD Work Phone: [facility] CI FMStart: 10-17-2024 End: 48-13-4732Ygwsj of hemosiderin, quantWeston Borja MD Work Phone: [facility] Work Phone: Start: 10-17-2024 End: 30-22-5457Bomkejm encounter procedureWeston Borja MD Work Phone: [facility] CI FMComment on above:Routine general medical examination at health care facility (Primary Dx); ACP (advance care planning); 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, without long-term current use of insulin, unspecified laterality (CMS/HCC); Essential (primary) hypertension (CMS/HCC); Chronic fatigueStart: 10-17-2024 End: 85-86-3682gextyetwlxPECQMK B BERRYNot AvailableStart: 10-17-2024 End: 12-07-7390Roimvr flowsLuma Borja MD Work Phone: [facility] CI FMStart: 10-17-2024 End: 50-70-3479Rsmesz Peg Borja MD Work Phone: [facility] CI FMStart: 10-12-2024 End: 59-33-6844Pnogxn Marj Westbrook PA Work Phone: [facility] CI FMStart: 10-12-2024 End: 39-79-7013Ltevss Marj Westbrook PA Work Phone: [facility] CI FMStart: 10-12-2024 End: 90-89-7044Llnthf outpatient visit 15 minutesTtia Westbrook PA Work Phone: [phone] CI FMComment on above:Dysfunction of right eustachian tube (Primary Dx)Start: 10-12-2024 End: 16-75-4023cpcnbompjbUDNCJ M HEMMERNot AvailableStart: 08-22-2024 End: 72-33-8272Phewyh Peg Borja MD Work Phone: [facility] CI FMStart: 08-22-2024 End: 96-63-2191Vitnxj Peg Borja MD Work Phone: [facility] CI FMStart: 08-22-2024 End: 39-56-3562Zlfgjl outpatient visit 25 minutesWeston Borja MD Work Phone: [facility] CI FMComment on above:Acute sinusitis, recurrence not specified, unspecified location (Primary Dx); Primary hypertension (CMS/HCC); Diabetic peripheral neuropathy (CMS/HCC)Start: 08-22-2024 End: 99-47-0428mdcflmjugtMZBNSA B BERRYNot AvailableStart: 07-22-2024 End: 63-63-4230Dwgqvh Peg Borja MD Work Phone: [facility] CI FMStart: 07-22-2024 End: 52-22-0071Wojtyp Peg Borja MD Work Phone: [facility] CI FMStart: 07-22-2024 End: 88-01-1463piaomrrrtvPDVTYX B BERRYNot AvailableStart: 07-18-2024 End: 73-90-6064Alpoea outpatient visit 25 minutesWeston Borja MD Work Phone: [facility] CI FMComment on above:Primary hypertension (CMS/HCC) (Primary Dx); Diabetic peripheral neuropathy (CMS/HCC); Idiopathic progressive neuropathyStart: 07-18-2024 End: 63-44-2701Apzhdb Peg Borja MD Work Phone: [facility] FMStart: 07-18-2024 End: 58-07-7062Yikhgd Peg Borja MD Work Phone: [facility] FMStart: 07-18-2024 End: 03-01-1758hmpcikqbihKUFOVY B BERRYNot AvailableStart: 06-29-2024 End: 93-76-3510Drxzah outpatient visit 15 minutesTita DERAS Work Phone: [facility] FMComment on above:Primary hypertension (CMS/HCC) (Primary Dx); Bilateral impacted cerumen; Nasal congestion; EpistaxisStart: 06-29-2024 End: 34-20-4364dozwpgokwdDMEWW M HEMMERNot AvailableStart: 06-29-2024 End: 45-26-0428Gqdfty Marj DERAS Work Phone: [facility] FMStart: 06-29-2024 End: 53-92-5554Nrktbc Marj DERAS Work Phone: [facility] FMStart: 05-16-2024 End: 25-97-6072Vvddj of hemosiderin, quantWeston Borja MD Work Phone: [facility] HealthcareStart: 05-16-2024 End: 47-99-6915Kkwxtye encounter procedureWeston Borja MD Work Phone: [facility] FMComment on above:Routine general medical examination at health care facility (Primary Dx); ACP (advance care planning); 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, without long-term current use of insulin, unspecified laterality (CMS/HCC); Prostate cancer screening; Elevated cholesterol (CMS/HCC); Essential (primary) hypertension (CMS/HCC); Stenosis of right carotid artery; 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 ([facility])Start: 05-16-2024 End: 68-42-2442ovlxcspviqCRJYJI B BERRYNot AvailableStart: 05-16-2024 End: 99-05-9255Aawvuf Peg Borja MD Work Phone: NOMS CI FMStart: 05-16-2024 End: 37-41-8572Hbkkgx Peg Borja MD Work Phone: NOMS CI FMStart: 04-19-2024 End: 46-52-8227eeqnkntomuTnjsiuxy Brink PTANOMS CI PTComment on above: Degeneration of intervertebral disc of lumbar region with discogenic back pain (Primary Dx); Low back pain, unspecified back pain laterality, unspecified chronicity, unspecified whether sciatica present; Degeneration of intervertebral disc of lumbar region, unspecified whether pain presentStart: 04-19-2024 End: 55-41-6837Steoje flowsheetMarshall Brink PTANOMS CI PTStart: 04-19-2024 End: 87-94-0764Zcnexw flowsheetMarshall Brink PTANOMS CI PTStart: 04-14-2024 End: 30-51-2731cyjoemdtlpAbcwyuwr Brink PTANOMS CI PTComment on above: Degeneration of intervertebral disc of lumbar region with discogenic back pain (Primary Dx); Low back pain, unspecified back pain laterality, unspecified chronicity, unspecified whether sciatica present; Degeneration of intervertebral disc of lumbar region, unspecified whether pain presentStart: 04-14-2024 End: 76-83-0943Studht flowsheetMarshall Brink PTANOMS CI PTStart: 04-14-2024 End: 87-79-7121Qnekxt flowsheetMarshall Brink PTANOMS CI PTStart: 04-12-2024 End: 34-21-7991bqnbggujqiMnyfatbh Brink PTANOMS CI PTComment on above: Degeneration of intervertebral disc of lumbar region with discogenic back pain (Primary Dx); Low back pain, unspecified back pain laterality, unspecified chronicity, unspecified whether sciatica present; Degeneration of intervertebral disc of lumbar region, unspecified whether pain presentStart: 04-12-2024 End: 04-64-9161Nsmfyx flowsheetNancyshall Brelizabeth PTANOMS CI PTStart: 04-12-2024 End: 67-03-0579Xplcgb flowsheetNancyshall Brelizabeth PTANOMS CI PTStart: 04-07-2024 End: 00-88-4879Yxlgvc flowsheetMarshall Brelizabeth PTANOMS CI PTStart: 04-07-2024 End: 15-30-9990Lccyzz flowsheetMarshall Brelizabeth PTANOMS CI PTStart: 04-07-2024 End: 16-06-1783nabkmokslsWgkbrovj Brelizabeth PTANOMS CI PTComment on above: Degeneration of intervertebral disc of lumbar region with discogenic back pain (Primary Dx); Low back pain, unspecified back pain laterality, unspecified chronicity, unspecified whether sciatica present; Degeneration of intervertebral disc of lumbar region, unspecified whether pain presentStart: 04-05-2024 End: 57-64-5801xyozrumnbaPowqbaez Brelizabeth PTANOMS CI PTComment on above: Degeneration of intervertebral disc of lumbar region with discogenic back pain (Primary Dx); Low back pain, unspecified back pain laterality, unspecified chronicity, unspecified whether sciatica present; Degeneration of intervertebral disc of lumbar region, unspecified whether pain presentStart: 04-05-2024 End: 78-49-5198Ddmdot flowsheetNancyshkishore Brelizabeth PTANOMS CI PTStart: 04-05-2024 End: 74-32-8160Otirag flowsheetNancyshkishore Brelizabeth PTANOMS CI PTStart: 03-31-2024 End: 80-06-9664uclepkltiuQfdybzk Kelbley PTANOMS CI PTComment on above: Degeneration of intervertebral disc of lumbar region with discogenic back pain (Primary Dx); Low back pain, unspecified back pain laterality, unspecified chronicity, unspecified whether sciatica present; Degeneration of intervertebral disc of lumbar region, unspecified whether pain presentStart: 03-31-2024 End: 83-36-1752Gnxfro flowsheetMelissa Kelbley PTANOMS CI PTStart: 03-31-2024 End: 95-58-9142Edsdgo flowsheetMelissa Kelbley PTANOMS CI PTStart: 03-29-2024 End: 49-95-0836bduwogshshRzdosu T Blackston PT Work Phone: noMS CI PTComment on above:Degeneration of intervertebral disc of lumbar region with discogenic back pain (Primary Dx); Low back pain, unspecified back pain laterality, unspecified chronicity, unspecified whether sciatica present; Degeneration of intervertebral disc of lumbar region, unspecified whether pain presentStart: 03-29-2024 End: 76-66-7189Rodgam Annalee Ortiz PT Work Phone: NOMS CI PTStart: 03-29-2024 End: 39-84-0110Qfzkwf Annalee Ortzi PT Work Phone: noMS CI PTStart: 03-23-2024 End: 10-53-8288enpezxjpvkGlichvek Brelizabeth PTANOMS CI PTComment on above: Degeneration of intervertebral disc of lumbar region with discogenic back pain (Primary Dx); Low back pain, unspecified back pain laterality, unspecified chronicity, unspecified whether sciatica present; Degeneration of intervertebral disc of lumbar region, unspecified whether pain presentStart: 03-23-2024 End: 18-99-6396Cktxxv vijayheetNancyshkishore Brink PTANOMS CI PTStart: 03-23-2024 End: 13-77-8426Ylfyvr vijayheetNancyshkishore Penaink PTANOMS CI PTStart: 03-15-2024 End: 31-61-1817ejeyncztfjMfisdh T Blackston PT Work Phone: NOMS CI PTComment on above:Degeneration of intervertebral disc of lumbar region with discogenic back pain (Primary Dx); Low back pain, unspecified back pain laterality, unspecified chronicity, unspecified whether sciatica present; Degeneration of intervertebral disc of lumbar region, unspecified whether pain presentStart: 03-15-2024 End: 93-65-6645Cdkrfa Annalee Ortiz PT Work Phone: NOMS CI PTStart: 03-15-2024 End: 93-56-5773Zcmuid flowsheetSantoshelida Ortiz PT Work Phone: noms CI PTStart: 03-14-2024 End: 37-00-5511Cmhtas Peg Borja MD Work Phone: NOMS CI FMStart: 03-14-2024 End: 16-05-5545Mumfgh Peg Borja MD Work Phone: NOMS CI FMStart: 03-14-2024 End: 40-67-7698Svsjid outpatient visit 10 minutesWeston Borja MD Work Phone: noMS CI FMComment on above:Acute cystitis with hematuria (Primary Dx); DysuriaStart: 03-07-2024 End: 71-94-1374Qvnowac encounter procedureWeston Borja MD Work Phone: noMS CI FMComment on above:DysuriaStart: 03-03-2024 End: 68-04-1193kapiolfmcuGfnnvlnn Brink PTANOMS CI PTComment on above: Degeneration of intervertebral disc of lumbar region with discogenic back pain (Primary Dx); Low back pain, unspecified back pain laterality, unspecified chronicity, unspecified whether sciatica presentStart: 03-03-2024 End: 42-54-9482Zthifp flowsheetMarshall Brink PTANOMS CI PTStart: 03-03-2024 End: 56-78-3639Huqitx flowsheetMarshall Brink PTANOMS CI PTStart: 02-25-2024 End: 27-74-9594Coatqb flowsheetMarshall Brink PTANOMS CI PTStart: 02-25-2024 End: 35-22-5523Lwnnmq flowsheetMarshall Brink PTANOMS CI PTStart: 02-25-2024 End: 63-09-3438ockqdairmjVsgxqpui Brink PTANOMS CI PTComment on above: Degenerative disc disease, lumbar (Primary Dx); Low back pain, unspecified back pain laterality, unspecified chronicity, unspecified whether sciatica presentStart: 02-22-2024 End: 75-37-9333frkuelgcxlIsgjzvzn Brink PTANOMS CI PTComment on above: Degenerative disc disease, lumbar (Primary Dx); Low back pain, unspecified back pain laterality, unspecified chronicity, unspecified whether sciatica presentStart: 02-22-2024 End: 00-38-4489Iqalrv flowsheetNancyshkishore Brink PTANOMS CI PTStart: 02-22-2024 End: 62-16-9570Dfjkce flowsheetNancyshkishore Brink PTANOMS CI PTStart: 02-16-2024 End: 49-48-4338Avfxzj flowsNoam Ortiz PT Work Phone: noms CI PTStart: 02-16-2024 End: 27-61-0328Cldasl Annalee Chelsey Ortiz PT Work Phone: noms CI PTStart: 02-16-2024 End: 82-88-8384ybnxricjnmOsnaga Chelsey Diana PT Work Phone: noms CI PTComment on above:Degenerative disc disease, lumbar; Low back pain, unspecified back pain laterality, unspecified chronicity, unspecified whether sciatica presentStart: 12-08-2023 End: 09-74-4676Jqwltyi encounter procedureFirbon [facility] Vascular Surgery Work Phone: Start: 11-26-2023 End: 10-08-9514Zzpslkvam Result EncounterWeston Borja MD Work Phone: noms External Department UnsolicitedStart: 11-26-2023 End: 11-35-2586Kryuuxznc Result EncounterDalillian Borja MD Work Phone: noms External Department UnsolicitedStart: 2023 Chart abstractingRosales Palomino MD Work Phone: noms [facility] NEURO 210Start: 80-05-7538Ri RenewalWeston Borja Work Phone: [phone]-Qkmwp [facility] DO Work Phone: Start: 01-13-2023 End: 71-83-6714vsasdsfbglTdxlywv R NILLFacility: Karynatart: 01-13-2023 End: 96-23-0299Obcghki encounter procedureMichael R NILL General Surgery Nill/Said Clark Start: 12-26-2022 End: 82-33-7007gmzciomkwqLefhkoz R NILLFacility: Karynatart: 12-26-2022 End: 00-63-6153Kloxgno encounter procedureMichael R NILL General Surgery Nill/Said Clark Start: 12-17-2022 End: 14-63-2423esgijoehgnHcqbhps R NILLFacility: Suzytart: 12-17-2022 End: 87-44-6443Yulvsla encounter procedureMichael R NILL General Surgery Nill/Said Clark Start: 12-10-2022 End: 19-66-5870pzyywvxbudFwxdkgy R NILLFacility:CD:[id number]: 11-18-2022 End: 04-44-6804bpwfumeybgChbmlav R NILLFacility: Karynatart: 11-18-2022 End: 56-92-9892Hpsapwm encounter procedureMichael R NILL General Surgery Nill/Said [place] Start: 10-01-2022 End: 68-06-6954fyzxtfcxyhRruplfv R NILLFacility: KikaOgtart: 10-01-2022 End: 64-57-0388Jozyyqi encounter procedureMichael R NILL General Surgery Nill/Said [place] Start: 09-26-2022 End: 17-22-2886pjihxelssfKM DANIEL BERRYFacility:Z8Sbuex: 96-31-0267foxifbisfh WESTON BORJAFacility:[facility]uther[facility] Hospitaltart: 60-25-9535ptcpwaqaueObfsxw José Borja IIFacility:[id number]: 08-17-2022 End: 95-47-9156sefebvnbvtXBGSV PARKERFacility:O5Hvsif: 08-02-2022 End: 97-35-8703bxrctnehxzUP DANIEL BERRYFacility:J2Molev: 07-19-2022 End: 82-83-6246lkscfbqlenSXACT PARKERFacility:E1Tyitt: 07-18-2022 End: 90-62-2514zfkjlxtasrIQ WESTON BORJAFacility:E6Qwcyl: 31-53-1084Qwfebznps for general adult medical examination without abnormal findingsANTHONY TESOARL [facility] Hospital[facility]art: 01-14-2022 End: 92-05-3296gturrvryasXIWGLLN TESMONDFacility:I0Kczyb: 01-14-2022 End: 88-96-1990Dyvlakzfn for general adult medical examination without abnormal findingsANTHONY TESMONDFacility:I4Gsimp: 12-25-2021 End: 54-75-8162cdvzzszlkkBISCYMJ TESMONDFacility:T4Jrtxm: 11-12-2021 End: 85-18-3966znwxwavfmeWyawdg [employer] Other [employer] Other Start: 91-41-6759Ppwbjw-up encounterJudith CoulterPG Vascular Surgery Procedures DateProcedureProcedure DetailPerforming ClinicianStart: 49-12-9500Jt orbit sella/post fossa/ear w/o & w/contr matrGeneric External Data ProviderStart: 16-33-4468Ytbvbjlnpw glycosylated n2bRasmahmichele Borja MD Work Phone: Start: 44-11-9803Skhertpzul glycosylated p1tLsedsbmichele Borja MD Work Phone: Start: 11-43-4389Iexlydm impacted cerumen instrumentation Ari DERAS Work Phone: Start: 46-10-0286Umlqfziyle glycosylated z9vCnpdomWeston Borja MD Work Phone: Start: 79-47-6084Thowr dip stick/tablet rgnt non-auto w/o micrscpDepi Borja MD Work Phone: Start: 85-82-5640SV LUMBAR SPINE 2 OR 3VDepi Borja MD Work Phone: Start: 90-55-5543Xeyef hips bilateral with pelvis 2 viewsDalillian Borja MD Work Phone: Start: 96-08-7511Flqoxx of left inguinal herniaMichael NILL Start: 24-75-6206TzochKheaqpd NILL CircumcisionMichael NILL CircumcisionDanimichele Borja Work Phone: Introduction of catheter into carotid arteryDalillian Borja Work Phone: TonsillectomyMichael NILL Tonsillectomy and adenoidectomyDalillian Borja Work Phone: NEGATED: Highlighted row has not occurred!Total colonoscopyDalillian Borja Work Phone: Plan of Treatment DateCare ActivityDetailAuthorStart: 68-98-1487Sffmrvxje for malignant neoplasm of colonNOMS HealthcareStart: 05-19-2026Medicare Annual Wellness (AWV)Medicare Annual Wellness (AWV)NOMS HealthcareStart: 05-23-2025 End: 25-60-0896Sxkvewq encounter cafagiedu13/23/2025 2:20 PM EST Office Visit [facility] [address] [place] [phone] Antwon Estrada MD [address] [place] [address] NOMS [place] OtolaryngologyStart: 05-17-2025 End: 17-28-9836Omjruhuj Ugxalfy3505/17/2025 1:00 PM EST Clinical Support [facility] [place] [facility] [address] [facility] [address] [place], [id number] Candice Hickman, [facility] [address] [facility] [address] NOMS [place] AudiologyStart: 12-16-2025Medicare Annual Wellness (AWV)Medicare Annual Wellness (AWV)NOMS HealthcareStart: 05-16-2025 Pneumococcal Vaccine: 65+ Years (1 of 2 - PCV)Pneumococcal Vaccine: 65+ Years (1 of 2 - PCV)NOMS HealthcareComment on above:Postponed from 1954 (Patient Refused)Postponed from 1967 (Patient Refused)Start: 52-15-2542Krcphdzbtr A1c measurementDiabetes: Hemoglobin D7PUJPY HealthcareStart: 05-02-2025 End: 54-85-9057Tuekhhf encounter joumxqxsz28/02/2025 1:30 PM EST Office Visit [facility] [address] [place] [phone] Joaquín Ghosh DO [address] [place] [address] [facility] EyeStart: 03-29-2025 End: 90-23-8686Oweoypk encounter pfevjrnqb34/29/2025 1:30 PM EDT Office Visit [facility] [place] [facility] [address] [facility] [address] [place] [phone] Antwon Estrada MD [address] [facility] [address] [place] [address] NOMS [place] OtolaryngologyStart: 03-07-2025 End: 53-06-5362Xxrvkti encounter /07/2025 2:00 PM EDT Office Visit [facility] [address] [place] [phone] Joaquín Ghosh DO [address] [place] [address] [facility] EyeStart: 03-06-2025 End: 34-10-2713Dkfouap encounter zrgdcwtet82/06/2025 3:45 PM EDT Office Visit [facility] [place] [facility] Selvinnce [address] [place] [address] Weston Borja MD [address] [place] [address] NOMS [place] Victor MedinceStart: 02-21-2025 End: 99-75-8984Kimrwce encounter nuruhrumw41/23/2025 2:00 PM EDT Office Visit [facility] [place] [facility] [address] [place] [address] Antwon Estrada MD [address] [place] [address] Allergic rhinitis, unspecified seasonality, unspecified trigger; Chronic dysfunction of right eustachian tube NOMS [place] OtolaryngologyComment on above:Allergic rhinitis, unspecified seasonality, unspecified trigger; Chronic dysfunction of right eustachian tubeStart: 02-13-2025 End: 69-10-9019Ycmdhvu encounter procedureNOMS [place] Victor MedinceComment on above:ArrivedStart: 02-13-2025 End: 60-61-5980Umgznwsyy (Vitamin B12) [Mass/volume] in Serum or PlasmaVitamin B12 Lab Routine Idiopathic progressive neuropathy Expected: 02/13/2025 (Approximate), Expires: 02/13/2026[facility] Work Phone: Comment on above:Expected: 02/13/2025 (Approximate), Expires: 02/13/2026Start: 02-13-2025 End: 59-70-8389Thxeenj Q9Eaymvqg B1 Lab Routine Idiopathic progressive neuropathy Expected: 02/13/2025 (Approximate), Expires: 02/13/2026NOMS HealthcareComment on above:Expected: 02/13/2025 (Approximate), Expires: 02/13/2026Start: 02-13-2025 End: 15-94-1542Ouaschw G8Sbtnrty B6 Lab Routine Idiopathic progressive neuropathy Expected: 02/13/2025 (Approximate), Expires: 02/13/2026NOMS HealthcareComment on above:Expected: 02/13/2025 (Approximate), Expires: 02/13/2026Start: 81-73-3107MWBZX-19 Vaccine ( season)COVID-19 Vaccine ()NOMS HealthcareStart: 71-93-9388Kepvhaags vaccinationNOMS HealthcareStart: 28-22-4449Alxghpjpwe A1c measurementDiabetes: Hemoglobin A1C NOMS HealthcareStart: 01-12-2025 End: 07-44-9503Xookmjc encounter gcvwcbuzz62/14/2025 2:00 PM EDT Office Visit [facility] [place] [facility] Medince [address] [place] [address] Merry Black NP [address] [place] [address] ArrivedNOMS [place] Victor MedinceComment on above:ArrivedStart: 12-01-2024 End: 43-11-8797Owikiuq encounter orvetwgui33/03/2025 11:30 AM EDT Office Visit [facility] [address] [place] [address] Weston Borja MD [address] [place] [address] ArrivedNOMS CI FMComment on above:ArrivedStart: 10-17-2024 End: 95-16-8479Wnknfgg encounter procedureNOMS CI FMComment on above:Arrived Start: 10-17-2024 End: 11-34-0014EdppdozmIszyponq Lab Routine Chronic fatigue Expected: 10/17/2024 (Approximate), Expires: 10/17/2025NOMS HealthcareComment on above:Expected: 10/17/2024 (Approximate), Expires: 10/17/2025Start: 10-17-2024 End: 58-57-1819Kxmmylfbttbw, total and freeTestosterone, total and free Lab Routine Chronic fatigue Expected: 10/17/2024 (Approximate), Expires: 10/17/2025 NOMS HealthcareComment on above:Expected: 10/17/2024 (Approximate), Expires: 10/17/2025Start: 10-17-2024 End: 37-12-4571Dugszzkwclh [Units/volume] in Serum or PlasmaTSH Lab Routine Chronic fatigue Expected: 10/17/2024 (Approximate), Expires: 10/17/2025NOMS HealthcareComment on above:Expected: 10/17/2024 (Approximate), Expires: 10/17/2025Start: 10-17-2024 End: 88-37-8660Piavrihgj (T4) free [Mass/volume] in Serum or PlasmaT4, free Lab Routine Chronic fatigue Expected: 10/17/2024 (Approximate), Expires: 10/17/2025 [facility] Work Phone: Comment on above:Expected: 10/17/2024 (Approximate), Expires: 10/17/2025Start: 10-17-2024 End: 56-77-9578Oufnbgfpvfaktoca (T3) Free [Mass/volume] in Serum or PlasmaT3, free Lab Routine Chronic fatigue Expected: 10/17/2024 (Approximate), Expires: 10/17/2025NOMS HealthcareComment on above:Expected: 10/17/2024 (Approximate), Expires: 10/17/2025Start: 10-12-2024 End: 83-19-0858Bxzphdr encounter gzvferyni96/14/2025 2:00 PM EDT Office Visit [facility] [address] [place] [address] Tita Westbrook PA [address] [place] [address] ArrivedNOMS CI FMComment on above:ArrivedStart: 08-22-2024 End: 57-72-2956Awtngyo encounter ztzasukcq56/24/2025 2:00 PM EDT Office Visit [facility] [address] [place] [address] Weston Borja MD [address] [place] [address] ArrivedNOMS CI FMComment on above:ArrivedStart: 08-14-2024 Hemoglobin A1c measurementDiabetes: Hemoglobin G6RSYLS HealthcareStart: 07-22-2024 End: 69-44-7696Hjrtzmv encounter uqnqfmgwx83/21/2025 10:15 AM EST Office Visit [facility] [address] [place] [address] Weston Borja MD [address] [place] [address] NOMS CI FMStart: 07-18-2024 End: 44-54-4866Mzgrysx encounter xsmysqbev08/17/2025 2:30 PM EST Office Visit [facility] [address] [place] [address] Weston Borja MD [address] [place] [address] ArrivedNONJ CI FMComment on above:ArrivedStart: 07-17-2024 Urine screening for proteinDiabetes: Urine Protein ScreeningSTEWARD [facility] Start: 88-32-3776Gdrfazdih vaccinationInfluenza Vaccine (#1)[facility] Comment on above:Postponed from 01/31/2024 (Patient Refused)Start: 06-29-2024 End: 38-66-6496Wvuijwx encounter /29/2025 3:00 PM EST Office Visit [facility] [address] [place] [address] Tita Westbrook PA [address] [facility] [address] [place] [address] ArrivedNOMS CI FMComment on above:ArrivedStart: 05-16-2024 End: 65-47-7159Fhbpcpd encounter procedureNOMS CI FMComment on above:Arrived Start: 05-16-2024 End: 90-79-7029Fwaeqihecscka metabolic 2000 panel - Serum or PlasmaComprehensive metabolic panel Lab Routine 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, without long-term current use of insulin, unspecified laterality (CMS/HCC) Essential (primary) hypertension (CMS/HCC) Expected: 05/16/2024 (Approximate), Expires: 05/16/2025NOMS HealthcareComment on above:Expected: 05/16/2024 (Approximate), Expires: 05/16/2025Start: 05-16-2024 End: 73-61-4211Lfmnr 1996 panel - Serum or PlasmaLipid panel Lab Routine 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, without long-term current use of insulin, unspecified laterality (CMS/HCC) Elevated cholesterol (CMS/HCC) Expected: 05/16/2024 (Approximate), Expires: 05/16/2025NOMS HealthcareComment on above:Expected: 05/16/2024 (Approximate), Expires: 05/16/2025Start: 05-16-2024 End: 20-75-6729TFE W/REFLEX TO FT4TSH W/REFLEX TO FT4 Lab Routine 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, without long-term current use of insulin, unspecified laterality (CMS/HCC) Expected: 05/16/2024 (Approximate), Expires: 05/16/2025NOMS HealthcareComment on above:Expected: 05/16/2024 (Approximate), Expires: 05/16/2025Start: 04-22-2024 Medicare Annual Wellness (AWV)Medicare Annual Wellness (AWV)[facility] Start: 04-20-2024 End: 64-23-5948Upkqckp encounter vvxaqyojm76/20/2024 2:00 PM EST Office Visit [facility] [address] [place] [phone] Joaquín Ghosh, DO [address] [place] [address] NOMS NB OPHTStart: 04-19-2024 End: 69-51-9987mgrmjdcdolTRCC CI PTComment on above:ArrivedStart: 04-14-2024 End: 37-45-7606zabfzbfvke24/14/2024 2:30 PM EST Treatment [facility] [address] [place] [address] Sybil Garcia, VINYL TOP INSTALLER NOMS CI PTStart: 04-12-2024 End: 35-52-8081btdaerkajc79/12/2024 3:30 PM EST Treatment [facility] [address] [place] [address] Sybil Garcia, VINYL TOP INSTALLER NOMS CI PTStart: 04-07-2024 End: 27-16-0902pxidldasmdSIZF CI PTComment on above:ArrivedStart: 04-06-2024 Glaucoma screeningDiabetes: Retinopathy ScreeningNONJ HealthcareStart: 04-05-2024 End: 88-33-3496sgkivybngl85/05/2024 3:30 PM EST Treatment [facility] [address] [place] [address] Sybil Garcia, VINYL TOP INSTALLER NOMS CI PTStart: 03-31-2024 End: 58-77-0607vabiegvsbl87/31/2024 3:30 PM EDT Treatment [facility] [address] [place] [address] Clarisa Siddiqui VINYL TOP INSTALLER NOMS CI PTStart: 03-29-2024 End: 66-55-4991bnllavmtra74/29/2024 2:30 PM EDT Treatment [facility] [address] [place] [address] Frank Ortiz, PT [address] [place] [address] NOMS CI PTStart: 03-23-2024 End: 01-19-4141wlswnkzpiz93/23/2024 4:00 PM EDT Treatment [facility] [address] [facility] [address] [place] [address] Sybil Garcia, NICK ArrivedNOMS CI PTComment on above:ArrivedStart: 03-17-2024 End: 92-52-1918xykoeabwcj93/17/2024 2:30 PM EDT Treatment [facility] [address] [facility] [address] [place] [address] Sybil Garcia, NICK NOMS CI PTStart: 03-15-2024 End: 66-29-9329mgfhbpaeiu41/15/2024 2:30 PM EDT Treatment [facility] [address] [facility] [address] [place] [address] Frank Ortiz, PT [address] [facility] [address] [place] [address] NOMS CI PTStart: 03-14-2024 End: 51-29-6592Mobswxw encounter /14/2024 1:45 PM EDT Office Visit [facility] [address] [place] [address] Weston Borja MD [address] [place] [address] ArrivedNOMS CI FMComment on above:ArrivedStart: 03-10-2024 End: 73-46-4423yqiiebrdbm44/10/2024 2:30 PM EDT Treatment [facility] [address] [facility] [address] [place] [address] Sybil Garcia, VINYL TOP INSTALLER NOMS CI PTStart: 03-08-2024 End: 31-55-2441wnpcgilxgxJAUX CI PTStart: 03-03-2024 End: 94-75-4657utjhihajtq29/03/2024 2:30 PM EDT Treatment [facility] [address] [place] [address] Sybil Garcia, VINYL TOP INSTALLER NOMS CI PTStart: 03-01-2024 End: 41-44-4436gnrfqnrskd33/01/2024 2:30 PM EDT Treatment [facility] [address] [place] [address] Frank Ortiz, PT [address] [place] [address] NOMS CI PTStart: 02-25-2024 End: 42-93-1210huntgnhhsz92/26/2024 1:30 PM EDT Treatment [facility] [address] [place] [address] Sybil Garcia, VINYL [employer] INSTALLER [facility] PTStart: 02-22-2024 End: 16-32-9131ntultdufcn54/23/2024 2:00 PM EDT Treatment [facility] [address] [place] [address] Sybil Garcia, VINYL TOP INSTALLER [facility] PTStart: 49-85-3234Uhccxksis vaccinationInfluenza Vaccine (#1)[facility] HealthcareStart: 55-91-4332Mfyejgtvxd A1c measurementDiabetes: Hemoglobin A1C [facility] HealthcareStart: 29-37-7218Cvriueztq vaccinationInfluenza Vaccine (#1)[facility] HealthcareComment on above:Postponed from 01/30/2023 (Patient Refused)Start: 10-28-2023 End: 96-93-0850Yqkpesx encounter gxvuepujf03/29/2024 2:15 PM EDT Office Visit [facility] [address] [place], [place] [id number] Weston Borja MD [address] [place] [address] [facility] CI FMStart: 47-26-5572Itrftzdndz A1c measurementDiabetes: Hemoglobin O3HHHLV HealthcareStart: 2023 End: 62-12-2046Hmlrntj encounter pzbudbyim06/05/2024 3:20 PM EST Office Visit [facility] [address] [facility] [address] [place] [address] Rosales Palomino MD [address] [place] [address] [place] [address] [facility] NE[facility]Start: 20-38-7290WCO, Provider: Cosmo Diaz, Status: Pen, Time: 2:00 PMFUV, Provider: Cosmo Diaz, Status: Pen, Time: 2:00 PM-[facility] 250 DO Work Phone: Start: 89-14-0929Rojbq screening for proteinDiabetes: Urine Protein ScreeningNONJ HealthcareStart: 91-05-8086XMdP/Tdap/Td Vaccines (1 - Tdap)DTaP/Tdap/Td Vaccines (1 - Tdap)[facility] HealthcareStart: 1956 Pneumococcal Vaccine: 65+ Years (1 - PCV)Pneumococcal Vaccine: 65+ Years (1 - PCV)[facility] HealthcareStart: 26-79-5488Sskoirlsrqnz Vaccine: 65+ Years (1 of 2 - PCV)Pneumococcal Vaccine: 65+ Years (1 of 2 - PCV)[facility] HealthcareStart: 52-25-2856Srtqtoatt for malignant neoplasm of colonNONJ HealthcareCBC W Auto Differential panel - BloodCBC and differential Lab Routine 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 (CMS/HCC) Ordered: 05/16/2024[facility] Healthcare Work Phone: Comment on above:Ordered: 05/16/2024rostate specific Ag [Mass/volume] in Serum or PlasmaPSA Lab Routine Prostate cancer screening Ordered: 05/16/2024[facility] HealthcareComment on above:Ordered: 05/16/2024US.doppler Carotid arteries - [facility] Immunizations Immunization DateImmunizationNotesCare MxygpucjFgmritxe11-64-4060AYTQ-UyC-6 (COVID-19) mRNA BNT-162b2 vaxMichael NILL General Surgery Ggpcoiqm74-44-8336QIYV-YxP-8 (COVID-19) mRNA BNT-162b2 vaxMichael NILL General Surgery Iimwzqgr51-84-7786XQBF-DkP-4 (COVID-19) mRNA BNT-162b2 vaxMichael NILL General Surgery [place]vueNEGATED: Highlighted row has not occurred!87-42-1294kkyjnmomkjqo polysaccharide vaccine, 23 valentPatient ObjectionJackadonay Oh [employer]esmarbella Other [employer] Other NEGATED: Highlighted row has not occurred!03-03-2017 influenza, seasonal, injectablePatient ObjectionJackadonay [facility] Other [employer] Other Payers DatePayer CategoryPayerPolicy [id number] (Managed Care)[facility] MEDICARE ADVANTAGE .[id number] 2010Medicare [id number] [id number] [id number] [id number] [id number] [id number] 1949Unknown [id number] 2.16840.1.415398.3.57[id number] 2.16840.1.000711.3.57[id number] 2.0.1.271497.3.57[id number] 2.840.1.097804.3.57[id number] 2.0.1.592096.3.57[id number] 2.840.1.884217.3.57[id number] 2.0.1.818842.3.57[id number] 2.0.1.828560.3.57[id number] 2.840.1.357683.3.57[id number] 2.0.1.185850.3.57[id number] 2.840.1.020333.3.57[id number] 2.840.1.659233.3.57[id number] 2.16.840.1.522006.3.579.2.79813-61-8082Btzrrys79197785 2.16840.1.573424.3.57[id number] 2.16840.1.317813.3.57[id number] 2.16840.1.865801.3.57[id number] 2.160.1.900496.3.57[id number] 2.0.1.674805.3.57[id number] 2.0.1.990343.3.57[id number] 2.0.1.281860.3.579.[id number] 2.0.1.928214.3.579.2.644982-11-5098Ussxkfw2874624 2.0.1.873425.3.579.2.866755-88-6561Itohnfr0604105 2.0.1.239148.3.579.2.061959-27-0724Jluztpy2091135 2.840.1.041815.3.579.2.430672-14-9687Sapuvxr8993662 2.840.1.687229.3.579.2.847872-34-5026Kklvkjz0034225 2.16840.1.117292.3.579.2.653120-55-4389Tohvvvy8381927 2.840.1.920699.3.579.2.547208-18-4883Vodhyph8058811 2.16.840.1.553980.3.579.2.889073-40-4338Fipsfem8267821 2.16.840.1.544896.3.579.2.610308-15-3577Cgvwspb6853353 2.16.840.1.551944.3.579.2.260403-28-4270Skyqmxe0842829 2.16.840.1.134631.3.579.2.711538-28-6692Dmmxzdj4239095 2.16.840.1.633648.3.579.2.003287-41-3350Lgaewws7503080 2.16.840.1.062013.3.579.[id number] 2..0.1.287671.3.579.2.1259Self-paySelf Pay [id number] Social History DateTypeDetailFacilityUnknown if ever smokedNort [employer] Other Start: 07-01-2023 End: 57-55-2222Kdl Assigned At [facility] 10-01-2022 End: 75-95-6422Hfsnqeb smoking statusNever smoked tobacco (finding)General Surgery [facility]vueStart: 54-04-9120Sqadjxr smoking statusNeverGeneral Surgery BellevueStart: 07-01-2023 End: 05-94-6023Jylkna alcohol useSocial alcohol useMP-[facility] 250 DO Work Phone: Start: 50-81-4113Azdjgmt use and exposureSmokeless tobacco non-userNONJ HealthcareStart: 07-01-2023 End: 47-41-0248Lacpmta intakeEx-drinker (finding)[facility] HospitalStart: 52-33-5017Ttfncbx Commentcaffeine: yesSamaritan HospitalStart: 23-95-7334Sca Assigned At BirthLehigh Valley Hospital - MuhlenbergStart: 22-46-6971Rlqois identityIdentifies as male gender (finding)[facility] Functional Status EkkcSezykguzpgBrjxhjYaaypetm34-49-2604Ysxzklg Health Questionnaire 2 item (PHQ- 2) [Reported][facility] HospitalDapawpoecj29-11-9419Jxpbcsg Health Questionnaire 2 item (PHQ- 2) [Reported][facility] HospitalRxhwugvymo76-16-5900Mzidlgk Health Questionnaire 2 item (PHQ- 2) [Reported][facility] HospitalZarqtboupu36-77-9444Xqfjjzz Health Questionnaire 2 item (PHQ- 2) [Reported][facility] HospitalBxmykqropz98-64-8354Vsksqhw Health Questionnaire 2 item (PHQ- 2) [Reported][facility] HospitalYuxuhfvhme07-94-0301Ghswnpdyqr StatusN/AGeneral Surgery Ysagnivm57-92-3358Saizzqqsgo StatusN/AGeneral Surgery [place] Clinical Notes 11-12-2021 to 03-29-2025 Note Date & WajnMsldKzufiomb41-53-1769 History of Present illness Narrative* Antwon Estrada MD - 03/29/2025 1:30 PM EDT Subjective Patient ID: Frankie De Anda is a 74 y.o. male who presents for Ear Problem (Follow up CT [facility] 03/23/25) CT temporal bone reviewed and there [...] Noted Type 2 diabetes mellitus without complications (HCC) 12/22/2022 Past Medical History: Diagnosis Date Acute recurrent maxillary sinusitis Cataract enlarged prostate prevention Heart attack (HCC) 2005 High cholesterol Hyperlipidemia Nasal mass Neuropathy [...] Borja not available to eval pt. Tita Westbrook recommends ED eval. Polyps not causing sig [...] file prior to visit. documented in this [facility]10-03-2025 Telephone encounter Note* Telephone Encounter - BRAEDEN Negron - 03/03/2025 10:44 AM EDT Loratadine sent [facility] HospitalYdmmyvruhc46-75-5551 Miscellaneous Notes* Telephone Encounter - BRAEDEN Negron - 03/03/2025 10:44 AM EDT Loratadine sent documented in this [facility]09-23-2025 History of Present illness Narrative* Antwon Estrada [...] OME fails to resolve documented in this encounterSamaritan HospitalGlxlxbofub06-25-2071 History of Present illness Narrative* Weston Borja [...] prevention GERD (gastroesophageal reflux disease) Heart attack ([facility]) 2006 no stents or surgery needed High [...] med changes, Test/Lab Review. documented in this encounterSamaritan HospitalQfhchnvbut12-18-4097 Telephone encounter Note* Telephone Encounter - Heather Najera - 02/02/2025 8:27 AM EDT Left detailed message for patient regarding this [facility] HospitalJihwzewebe90-97-3835 Miscellaneous Notes* Telephone Encounter - Heather Najera - 02/02/2025 8:27 AM EDT Left detailed message for patient regarding this * Telephone Encounter - TRISHA ELIZALDE - 02/01/2025 1:32 PM EDT You can buy them at [facility] [employer] or any Pharmacy. We don't order them * Telephone Encounter - Heather Najera - 02/01/2025 1:24 PM EDT Patient wondered if he could get some sort of covid test ordered. He didn't know if he could do that here or if it could be ordered else where. documented in this encounterSamaritan HospitalFxisaiywjx62-09-3021 Telephone encounter Note* Telephone Encounter - TRISHA ELIZALDE - 02/01/2025 1:32 PM EDT You can buy them at [facility] [employer] or any Pharmacy. We don't order them [facility] HospitalTbtqyzuccj15-43-8789 Telephone encounter Note* Telephone Encounter - Heather Najera - 02/01/2025 1:24 PM EDT Patient wondered if he could get some sort of covid test ordered. He didn't know if he could do that here or if it could be ordered else where. [facility] HospitalOngjjteuwj30-40-0729 History of Present illness Narrative* Merry Black NP - 01/12/2025 2:00 PM EDT Images [...] No follow-ups on file. documented in this encounterSamaritan HospitalEfnkjvbewj75-36-5721 History of Present illness Narrative* Merry Black NP - 01/05/2025 3:00 PM EDT Images [...] No follow-ups on file. documented in this encounterSamaritan HospitalYqfbwniwol34-74-8097 Telephone encounter Note* Telephone Encounter - Weston Borja MD - 12/26/2024 2:17 PM EDT Rx was sent. [facility] HospitalNzxpljimyo90-49-6110 Miscellaneous Notes* Telephone Encounter - Weston Borja MD - 12/26/2024 2:17 PM EDT Rx was sent. * Telephone Encounter - Heather Najera - 12/26/2024 11:59 AM EDT pregabalin (Lyrica) he said its usually 75 but he wondered if he could do [facility] [facility] documented in this encounterSamaritan HospitalGcblyumacv61-77-9438 Telephone encounter Note* Telephone Encounter - Heather Najera - 12/26/2024 11:59 AM EDT pregabalin (Lyrica) he said its usually 75 but he wondered if he could do 100 mg [facility]. [facility] HospitalRuwionduus67-89-9899 History of Present illness Narrative* Weston Borja [...] Do you have a medical power of state attorney?: Yes Who is your medical power of state attorney?: sister Objective : BP 138/86 Pulse [...] POCT Glycated hemoglobin, total Essential (primary) hypertension ([facility]) Chronic fatigue - T4, free; Future - T3, free; Future - TSH; Future - Cortisol; Future - Testosterone, total and free; Future Follow up in about 4 weeks (around 11/14/2024) for Test/Lab Review. No orders of the defined types were placed in this encounter. Electronically signed by Weston Borja MD on October 17, 2024 documented in this encounterSamaritan HospitalYfewrobvyq26-37-0333 History of Present illness Narrative* BRAEDEN Negron [...] for Appointment As Scheduled. documented in this encounterSamaritan HospitalByasasvgcp24-94-4322 History of Present illness Narrative* Weston Borja [...] 10/22/2024) for Routine F/U. documented in this encounterSamaritan HospitalDrojvivouu26-08-7138 History of Present illness Narrative* Weston Borja MD - 07/18/2024 2:30 PM EST Images from the original note were not included. Subjective Patient ID: Frankie De Anda is a 74 y.o. male who presents for hypertension. Frankie is in today for hypertension, states yesterday his BP was 219/91 and went to [facility]. States they did an EKG, blood [...] 1 week (around 07/25/2024). documented in this encounterSamaritan HospitalYztwvaxaxp25-91-5326 History of Present illness Narrative* BRAEDEN Negron [...] (around 09/27/2024) for Hypertension. documented in this encounterSamaritan HospitalOpimgicbjx77-87-8429 History of Present illness Narrative* Weston Borja [...] Do you have a medical power of state attorney?: No Objective : BP 130/78 Pulse [...] right carotid artery 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 (CMS/HCC) - CBC and differential Orders Placed This Encounter Procedures POCT Glycated hemoglobin, total Electronically signed by Weston Borja MD on May 16, 2024 documented in this encounterSamaritan HospitalRfedqyhpqf60-19-2130 History of Present illness Narrative* Sybil Garcia PTA - 04/14/2024 2:30 PM EST Physical Therapy [...] on/off for several years. Had PT at [facility] which helped. Had increased pain while [...] to be instructed in home exercise program. Senior Living Goals: To be met in 10 weeks [...] Please sign below. Date: documented in this encounterSamaritan HospitalGyarblykxn45-71-1686 History of Present illness Narrative* Sybil Garcia [...] on/off for several years. Had PT at [facility] which helped. Had increased pain while [...] improve hip strength. Deferred IFC post session, (P unavailable). Assess response and progress as able. Outcome Measure: Rehab Diagnosis: lumbar DDD, right hip OA Short Term Goal: To be met in 2 weeks Goal 1: Pt to be instructed in home exercise program. Senior Living Goals: To be met in 10 weeks [...] necessary. Please sign below. Date: Cosigned by Frank Ortiz PT at 04/13/2024 1:08 PM EST documented in this encounterSamaritan HospitalAtmyrixiwc88-08-4963 History of Present illness Narrative* Frank Ortiz, PT - 03/29/2024 2:30 PM EDT [...] on/off for several years. Had PT at [facility] which helped. Had increased pain while [...] to be instructed in home exercise program. Senior Living Goals: To be met in 10 weeks [...] Please sign below. Date: documented in this encounterSamaritan HospitalZjgdzsllwc45-96-3111 History of Present illness Narrative* Frank Ortiz, PT - 03/15/2024 2:30 PM EDT [...] on/off for several years. Had PT at [facility] which helped. Had increased pain while [...] noticed a regression in his progress. Pain: 2/10 Objective: PT Evaluation (02/16/24) Lumbar ROM: flexion [...] exercises today and pt. Tolerated well. Pt. [place] new exercises really helped. Outcome Measure: Rehab Diagnosis: lumbar DDD, right hip OA Short Term Goal: To be met in 2 weeks Goal 1: Pt to be instructed in home exercise program. Senior Living Goals: To be met in 10 weeks [...] Please sign below. Date: documented in this encounterSamaritan HospitalKwfkfsdfhv79-17-3350 History of Present illness Narrative* Weston Borja [...] No follow-ups on file. documented in this encounterSamaritan HospitalFwzxvspglj79-22-4424 History of Present illness Narrative* Michaela Morrell LPN - 03/07/2024 2:15 PM EDT Pt dropped off urine to be checked d/t he feel he may have a UTI. documented in this encounterSamaritan HospitalBzspdmzeyi93-57-4920 Hospital Discharge instructions Follow Up Care 12/26/2022 14:17:19 With:Dakota ANH MD, SUR Address: [address] [place] [address]- When: only if needed With:Dakota AHN MD, MIGUEL A Address: [address] [place], [place] [address]- When: only if needed With:Dakota AHN MD, MIGUEL A Address: [address] [place] [address]- When: only if needed General Surgery [facility] 05-03-2023 NoteChief Complaint consultation for left inguinal [...] tab(s), Oral, BID, PRN Flonase 0.05 mg/inh [place], 2 spray(s), Nasal, Daily hydrochlorothiazide-losartan 12.5 mg-50 mg Tab, 1 tab(s), Oral, Daily metformin 500 mg Tab, 500 mg= 1 tab(s), Oral, BID Allergies penicillins (Weakness - general) Social History Alcohol - Low Risk, 07/11/2019 Substance Abuse - Denies S (more content not included)...[facility] HospitalComment on above:Result Comment: Electronically Signed By: JIMY BOWEN, Dakota Aiken\Date and Time Signed: 10/01/22 15:06 RLQ61-88-3173 Evaluation note * Encounter Date Diagnosis Assessment [...] us in the meantime with any issues. [employer] Other Evaluation + Plan note No data available for this section [facility] [place] Evaluation + Plan note Future Appointments Appointment Date:12/26/2022 02:00:00 PM Scheduled Provider:Dakota AHN MD Location:[facility] Appointment Type:GS Post Op 15 General Surgery [place] Evaluation + Plan note Future Appointments Appointment Date:01/13/2023 04:00:00 PM Scheduled Provider:Dakota AHN MD Location:[facility] Appointment Type:GS Post Op 15 General Surgery [place] Evaluation note* Diagnosis Onset Date Resolution Status Carotid stenosis, right acute [facility] Work Phone: evaluation note* Diagnosis Degeneration [...] long-term current use of insulin, unspecified laterality ([facility]) Prostate cancer screening Special screening for malignant neoplasm of prostate Elevated cholesterol ([facility]) Pure hypercholesterolemia Essential (primary) hypertension ([facility]) Unspecified essential hypertension Stenosis of right carotid artery Occlusion and stenosis of carotid artery without mention of cerebral infarction 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 ([facility]) documented in this encounter [facility] HealthcareEvaluation note* Diagnosis Degenerative disc disease, lumbar- Primary Low back pain, unspecified back pain laterality, unspecified chronicity, unspecified whether sciatica present documented in this encounter [facility] HealthcareEvaluation note* Diagnosis Degenerative disc disease, lumbar- Primary Low back pain, unspecified back pain laterality, unspecified chronicity, unspecified whether sciatica present documented in this encounter [facility] HealthcareEvaluation note* Diagnosis Primary hypertension ([facility])- Primary Unspecified essential hypertension Bilateral impacted cerumen Impacted cerumen Nasal congestion Other diseases of nasal cavity and sinuses Epistaxis documented in this encounter [facility] HealthcareEvaluation note* Diagnosis Primary hypertension (CMS/HCC)- Primary Unspecified essential hypertension Diabetic peripheral neuropathy ([facility]) Type II or unspecified type diabetes mellitus with neurological manifestations, not stated as uncontrolled Idiopathic progressive neuropathy documented in this encounter [facility] Healthcare[facility]* Diagnosis Acute sinusitis, recurrence not specified, unspecified location- Primary Primary hypertension ([facility]) Unspecified essential hypertension Diabetic peripheral neuropathy (CMS/HCC) [...] unspecified type documented in this encounter [facility] HealthcareEvaluation note* Diagnosis OME (otitis media with effusion), right- Primary Chronic dysfunction of right eustachian tube CSF otorrhea Hypertension, unspecified type Nasal polyp Unspecified nasal polyp documented in this encounter [facility] HealthcareHistory general Narrative - Reported* Type Description Date Medical History HTN-supposed to take Bystolic, but reports he does not usually take it Medical HistoryHypercholestermiaMedical HistoryInguinal herniaMedical HistoryDM with some neuropahtyMedical HistoryCAD with [place] in 2005-did not have significant amount of cardiac injury at that time and has not had any recurrent symptoms of angina. He continues to follow with Dr. Lamb who treats him medicallyMedical HistoryCVODSurgical NnpcemjKavchzyjrjyp5721Mwnltrsp HistoryLt ankle oc6774 Surgical Historycarotid endarterectomy right qtlu5974Sfnyhnojckkqrlq History Heart bndgow6576 [employer] Other Hospital Discharge instructions No data available for this section [facility] [place] Progress note No data available for this section [facility] [place] Reason for visit Narrative* Rehabilitation - Outpatient (Routine) - AuthorizedSpecialtyDiagnoses / ProceduresReferred By Contact Referred To ContactPhysical Therapy Diagnoses Degenerative disc disease, lumbar Low back pain, unspecified back pain laterality, unspecified chronicity, unspecified whether sciatica present Procedures OK [facility] 60 MINUTES Weston Borja MD 112 [facility] [address] [place] [address] Phone: tel: fax: [facility] 112 [facility] [address] [place] [address] Phone: tel: fax: Referral IDStatusReasonStart DateExpiration DateVisits RequestedVisits [id number] Specialty Services Required [facility] HealthcareReason for visit Narrative* Rehabilitation - Outpatient (Routine) - AuthorizedSpecialtyDiagnoses / ProceduresReferred By ContactReferred To ContactPhysical Therapy Diagnoses Degenerative disc disease, lumbar Low back pain, unspecified back pain laterality, unspecified chronicity, unspecified whether sciatica present Procedures OK THER PX 1/> AREAS EACH 15 MIN NEUROMUSC REEDUCA PHYS/OCC THERAPY SS OK MANUAL THERAPY TQS 1/> REGIONS EACH 15 MINUTES OK THERAPEUTIC PX 1/> AREAS EACH 15 MIN EXERCISES Weston Borja MD 112 [facility] [address] [place] [address] Phone: tel: fax: [facility] [address] [address] Phone: tel: fax: Referral IDStatusReasonStart DateExpiration DateVisits RequestedVisits [id number] Specialty Services Required N[facility] HealthcareReason for visit Narrative* Rehabilitation - Outpatient (Routine) - ClosedSpecialtyDiagnoses / ProceduresReferred By ContactReferred To Contact Physical Therapy Diagnoses Degenerative disc disease, lumbar Low back pain, unspecified back pain laterality, unspecified chronicity, unspecified whether sciatica present Procedures OK THER PX 1/> AREAS EACH 15 MIN NEUROMUSC REEDUCA PHYS/OCC THERAPY SS OK MANUAL THERAPY TQS 1/> REGIONS EACH 15 MINUTES OK THERAPEUTIC PX 1/> AREAS EACH 15 MIN EXERCISES Weston Borja MD 112 [facility] [address] [place] [address] Phone: tel: fax: [facility] [address] [address] Phone: tel: fax: Referral IDStatusReasonStart DateExpiration DateVisits RequestedVisits [id number] Specialty Services Required [facility] Summary Purpose Family History No Family History Records FoundUnknown Family Member Name Dates Details Family history of cardiac di sorder: Mother, Father(V17.49, Z82.49) Status:ActiveFamily history of malignant neoplasm of skin: Sister(V16.8, Z80.8) Status:Active Relationship Condition Age at Onset Recorded Date/T ananth father Heart disease Unknown DeceasedUnknownmotherHeart diseaseUnknownsisterMalignant neoplasmUnknown Advance Directives No Advanced Directives Records Found [...] section and content) DATE CREATED AUTHOR 11/25/2021 [facility] DATE CREATED AUTHOR AUTHOR'S ORGANIZ ATION 09/04/2022 [facility] DATE CREATED AUTHOR AUTHOR'S ORGANIZ ATION 09/04/2022 [employer] DATE CREATED AUTHOR AUTHOR'S ORGANIZ ATION 10/03/2022 [facility] DATE CREATED AUTHOR AUTHOR'S ORGANIZ ATION 01/14/2023 [facility] DATE CREATED AUTHOR AUTHOR'S ORGANIZ ATION 12/04/2024 [facility] DATE CREATED AUTHOR AUTHOR'S ORGANIZ ATION 03/31/2025 [facility] EPIC REASON FOR VISIT (unrecogniz ed section and content) SpecialtyDiagnoses / ProceduresReferred By ContactReferred To ContactPhysical Therapy Diagnoses Degenerative disc disease, lumbar Low back pain, unspecified back pain laterality, unspecified chronicity, unspecified whether sciatica present Procedures OK [facility] 60 MINUTES Weston Borja MD 112 [facility] [address] [place] [address] [facility] [address] [facility] [address] [place] [address] Referral IDStatusReasonStart DateExpiration DateVisits RequestedVisits [id number] Specialty Services Required [id number]n IDStatusReasonStart Date Expiration DateVisits RequestedVisits [id number] Specialty Services Required [id number] Annual Wellness Visit [...] Chronic dysfunction of right eustachian tube Procedures [place] OFFICE/OUTPATIENT NEW HIGH MDM 60 MINUTES Weston Borja MD [address] [facility] [address] [place] [address] Phone: tel: fax: Antwon Estrada MD [address] [place] [address] Phone: tel: fax: Referral IDStatusReasonStart DateExpiration DateVisits RequestedVisits [id number] Specialty Services Required /[id number] Change RequestReasonCommentsEar Problem Follow up [facility] 03/23/25 Patient Care team informatio n (unrecognized section and content) Team MemberRelationshipSpecialtyStart DateEnd Weston Borja MD [address] [place] [address] PCP - Human06/01/20 Weston Borja MD [address] [facility] [address] [place] [address] PCP - GeneralInternal Medicine10/07/22ThuAndresMercedez irving LPN [address] [place] [address] Licensed Practical NurseFamily Medicine07/02/23 Team Status: Active Member Role Status Dates Weston Borja II MD Primary Care Provider Active Team Status: Inactive Member Role Status Dates Melchor Mondragon MD Attending Provider Active S tart: December 08, 2023 End: December 07epi Borja II [facility] Care ProviderActiveStart: December 08, 2023 End: December 08, 2023Team MemberRelationshipSpecialtyStart DateEnd Date Weston Borja MD [address] [place] [address] PCP - GeneralInternal Medicine10/07/22am MemberRelationshipSpecialtyStart Date End Date Weston Borja MD [address] [place] [address] PCP - GeneralInternal Medicine10/07/22am MemberRelationshipSpecialtyStart Date End Date Weston Borja MD [address] [place] [address] PCP - GeneralInternal Medicine10/07/22am MemberRelationshipSpecialtyStart Date End Date Weston Borja MD [address] [place] [address] PCP - GeneralInternal Medicine10/07/22am MemberRelationshipSpecialtyStart Date End Date Weston Boraj MD [address] [place] [address] PCP - GeneralInternal Medicine10/07/22am MemberRelationshipSpecialtyStart Date End Date Weston Borja MD [address] [place] [address] PCP - GeneralInternal Medicine10/07/22am MemberRelationshipSpecialtyStart Date End Date Weston Borja MD [address] [place] [address] PCP - GeneralInternal Medicine10/07/22am MemberRelationshipSpecialtyStart Date End Date Weston Borja MD [address] [place] [address] PCP - GeneralInternal Medicine10/07/22am MemberRelationshipSpecialtyStart Date End Date Weston Borja MD [address] [place] [address] PCP - GeneralInternal Medicine10/07/22am MemberRelationshipSpecialtyStart Date End Date Weston Borja MD [address] [place] [address] PCP - GeneralInternal Medicine10/07/22 MemberRelationshipSpecialtyStart Date End Date Weston Borja MD [address] [place] [address] PCP - GeneralInternal Medicine10/07/22 MemberRelationshipSpecialtyStart Date End Date Weston Borja MD [address] [place] [address] PCP - GeneralInternal Medicine10/07/22am MemberRelationshipSpecialtyStart Date End Date Weston Borja MD [address] [place] [address] PCP - GeneralInternal Medicine10/07/22am MemberRelationshipSpecialtyStart Date End Date Weston Borja MD [address] [place] [address] PCP - GeneralInternal Medicine10/07/22am MemberRelationshipSpecialtyStart Date End Date Weston Borja MD [address] [place] [address] PCP - GeneralInternal Medicine10/07/22Team MemberRelationshipSpecialtyStart Date End Date Weston Borja MD [address] [place] [address] PCP - GeneralInternal Medicine10/07/22Team MemberRelationshipSpecialtyStart Date End Date Weston Borja MD [address] [place] [address] PCP - GeneralInternal Medicine10/07/22Team MemberRelationshipSpecialtyStart Date End Date Weston Borja MD [address] [place] [address] PCP - GeneralInternal Medicine10/07/22Team MemberRelationshipSpecialtyStart Date End Date Weston Borja MD [address] [place] [address] PCP - GeneralInternal Medicine10/07/22Team MemberRelationshipSpecialtyStart Date End Date Weston Borja MD [address] [place] [address] PCP - GeneralInternal Medicine10/07/22Team MemberRelationshipSpecialtyStart Date End Date Weston Borja MD [address] [place] [address] PCP - GeneralInternal Medicine10/07/22 Frankie Irby DO [address] [place] [address] PCP - Humana1/21Team MemberRelationshipSpecialtyStart DateEnd Weston Borja MD [address] [place] [address] PCP - GeneralInternal Medicine10/07/22 Frankie Irby DO [address] [facility] [address] [place] [address] PCP - Humana1/21Team MemberRelationshipSpecialtyStart DateEnd Date Weston Borja MD [address] [place] [address] PCP - GeneralInternal Medicine10/07/22 Frankie Irby DO [address] [facility] [address] [place] [address] PCP - Humana1/06/21Team MemberRelationshipSpecialtyStart DateEnd Date Weston Borja MD [address] [place] [address] PCP - GeneralInternal Medicine10/07/22 Frankie Irby DO [address] [facility] [address] [place] [address] PCP - Humana1/121Team MemberRelationshipSpecialtyStart DateEnd Date Weston Borja MD [address] [place] [address] PCP - GeneralInternal Medicine10/07/22 Frankie Irby DO [address] [place] [address] PCP - Humana1/1/21Team MemberRelationshipSpecialtyStart DateEnd Weston Borja MD [address] [place] [address] PCP - GeneralInternal Medicine10/07/22 Frankie Irby DO [address] [place] [address] PCP - Humana1/121Team MemberRelationshipSpecialtyStart DateEnd Date Weston Borja MD [address] [place] [address] PCP - GeneralInternal Medicine10/07/22 Frankie Irby, [address] [facility] [address] [place] [address] PCP - Humana1/121Team MemberRelationshipSpecialtyStart DateEnd Weston Borja MD [address] [place] [address] PCP - GeneralInternal Medicine10/07/22 Frankie Irby, [address] [place] [address] PCP - Humana1/121Team MemberRelationshipSpecialtyStart DateEnd Date Weston Borja MD [address] [place] [address] PCP - GeneralInternal Medicine10/07/22 Frankie Irby DO [address] [place] [address] PCP - Humana1/06/21Team MemberRelationshipSpecialtyStart DateEnd Weston Borja MD [address] [place] [address] PCP - GeneralInternal Medicine10/07/22 Weston Borja MD [address] [place] [address] PCP - Humana1/06/21Team MemberRelationshipSpecialtyStart DateEnd Weston Borja MD [address] [place] [address] PCP - GeneralInternal Medicine10/07/22 Weston Borja MD [address] [place] [address] PCP - Humana1/06/21Team MemberRelationshipSpecialtyStart DateEnd Weston Borja MD [address] [place] [address] PCP - GeneralInternal Medicine10/07/22 Weston Borja MD [address] [place] [address] PCP - Humana1/06/21Team MemberRelationshipSpecialtyStart DateEnd Weston Borja MD [address] [place] [address] PCP - GeneralInternal Medicine10/07/22 Weston Borja MD [address] [place] [address] PCP - Humana1/06/21Team MemberRelationshipSpecialtyStart DateEnd Weston Borja MD [address] [place] [address] PCP - GeneralInternal Medicine10/07/22 Weston Borja MD [address] [place] [address] PCP - Humana1/06/21Team MemberRelationshipSpecialtyStart DateEnd Weston Borja MD [address] [place] [address] PCP - GeneralInternal Medicine10/07/22 Weston Borja MD [address] [place] [address] PCP - Humana1/06/21Team MemberRelationshipSpecialtyStart DateEnd Weston Borja MD [address] [place] [address] PCP - GeneralInternal Medicine10/07/22 Weston Borja MD [address] [place] [address] PCP - Humana1/06/21Team MemberRelationshipSpecialtyStart DateEnd Weston Borja MD [address] [place] [address] PCP - GeneralInternal Medicine10/07/22 Weston Borja MD [address] [place] [address] PCP - HumanTeam MemberRelationshipSpecialtyStart DateEnd Weston Borja MD [address] [facility] [address] [place] [address] PCP - GeneralInternal Medicine10/07/22 Weston Borja MD [address] [facility] [place] [address] PCP - Human Goals (unrecognized section and content) Goals may [...] BE BASED ON THE PRIMARY CLINICAL RECORDS. [facility] 24/7 Card [facility]. provides no warranty or guarantee of the accuracy or completeness of information in this document.
--- OUTSIDE RECORDS SUMMARY | 2025-05-09 23:22 | XMS_ITS | Clinical Summary ---
Author Organization [facility] Address [address] [place] [address] Phone Care Team Providers Care Pipe Finishing Supervisor Name Role Phone Weston Borja MD Primary Care Provider [phone] Social History Tobacco UseTypesPacks/DayYears UsedDateSmoking Tobacco: Never AssessedSex and Gender InformationValueDate RecordedSex Assigned at BirthNot on fileLegal Sex Male04/25/2022 11:45 PM ESTGender IdentityNot on fileSexual OrientationNot on file Last Filed Vital Signs Vital SignReadingTime TakenCommentsBlood Vligbqwd385/7805 2:07 PM EDT Kyqhv7385/19/2023 1:56 PM EDTTemperature--Respiratory Rate--Oxygen Saturation-- Inhaled Oxygen Concentration--Zcbrer18.9 kg (196 lb)10/17/2022 1:56 PM EDTHeight 170.2 cm (5' 7 )10/17/2022 1:56 PM EDTBody Mass Index30.705 1:56 PM EDT Plan of Treatment Health MaintenanceDue DateLast DoneCommentsLipid Panel1948Medicare Annual Wellness Visit (AWV)1950Hepatitis C Ccmoqhnmm18/05/1967DTaP/Tdap/Td Vaccines (1 - Tdap)1970Pneumococcal Vaccine (1 of [...] Team MemberRelationshipSpecialtyStart DateEnd Weston Borja MD [address] [facility] [address] [place] [address] [facility]01/20/23
--- OUTSIDE RECORDS SUMMARY | 2025-05-09 23:22 | XMS_ITS | Encounter Summary ---
Author Organization [facility] Address [address] [facility] [place] [address] Care Team Providers Care Tray Server Name Role Phone Weston Borja MD Primary Care Provider [phone] Weston Borja MD Unavailable [phone] Encounter Details DateTypeDepartmentCare Team (Latest Contact Info)Akgxukdqiog14/08/2025Travel Social History Tobacco UseTypesPacks/DayYears UsedDateSmoking Tobacco: NeverSmokeless Tobacco: NeverAlcohol UseStandard Drinks/WeekCommentsNot Currently0 (1 standard drink = 0.6 oz pure alcohol)caffeine: yesPHQ-2AnswerDate RecordedPatient Health Questionnaire-2 Fsvff306Sex and Gender InformationValueDate RecordedSex Assigned at PsoehGtov27/11/2023 10:51 AM EDTLegal OuzQdho8908/13/2022 7:11 PM EDT Gender DyejrucgAaoh39/11/2023 10:51 AM EDTSexual OrientationNot on file documented as of this encounter Plan of Treatment DateTypeDepartmentCare Team (Latest Contact Info)Xtuyhnwmibz52/09/2026 2:30 PM EDTOffice Visit [facility] [place] [facility] [address] [place] [address] Weston Borja MD [address] [place] [address] documented as of this encounter Visit Diagnoses Not on filedocumented in this encounter Care Teams Team MemberRelationshipSpecialtyStart DateEnd Date Weston Borja MD [address] [facility] [address] [place] [address] PCP - GeneralInternal Medicine10/07/22 Weston Borja MD [address] [facility] [address] [place] [address] PCP - Humana1documented as of this encounter
--- OUTSIDE RECORDS SUMMARY | 2025-05-09 23:22 | XMS_ITS | Encounter Summary ---
Author Organization [facility] Address [address] [place] [address] Care Team Providers Care Track Machine Operator Repairer Name Role Phone Weston Borja MD Primary Care Provider [phone] Weston Borja MD Unavailable [phone] Encounter Details DateTypeDepartmentCare Team (Latest Contact Info)Awbgowvtiha48/08/2025amboo flowsheet [facility] [place] [facility] [address] [place] [address] Weston Borja MD [address] [place], [place] [address] Social History Tobacco UseTypesPacks/DayYears UsedDateSmoking Tobacco: NeverSmokeless Tobacco: NeverAlcohol UseStandard Drinks/WeekCommentsNot Currently0 (1 standard drink = 0.6 oz pure alcohol)caffeine: yesPHQ-2AnswerDate RecordedPatient Health Questionnaire-2 Emvka728Sex and Gender InformationValueDate RecordedSex Assigned at PpuwrQtuj84/11/2023 10:51 AM EDTLegal KhaArxn3508/13/2022 7:11 PM EDT Gender WmixcvccSpwp08/11/2023 10:51 AM EDTSexual OrientationNot on file documented as of this encounter Plan of Treatment DateTypeDepartmentCare Team (Latest Contact Info)Zffcmmpynwr47/09/2026 2:30 PM EDTOffice Visit [facility] [place] [facility] [address] [place] [address] Weston Borja MD [address] [place] [address] documented as of this encounter Visit Diagnoses Not on filedocumented in this encounter Care Teams Team MemberRelationshipSpecialtyStart DateEnd Date Weston Borja MD [address] [facility] [address] [place] [address] PCP - GeneralInternal Medicine10/07/22 Weston Borja MD [address] [facility] [address] [place] [address] PCP - Humana1documented as of this encounter
--- OUTSIDE RECORDS SUMMARY | 2025-05-09 23:22 | XMS_ITS | Encounter Summary ---
Author Organization [facility] Address [address] [facility] [place] [address] Care Team Providers Care Pulmonary Specialist Name Role Phone Weston Borja MD Primary Care Provider [phone] Weston Borja MD Unavailable [phone] Encounter Details DateTypeDepartmentCare Team (Latest Contact Info)Tmhemvryqez05/03/2025amboo flowsheet [facility] [address] [place] [address] Joaquín Ghosh, DO [address] [place] [address] Social History Tobacco UseTypesPacks/DayYears UsedDateSmoking Tobacco: NeverSmokeless Tobacco: NeverAlcohol UseStandard Drinks/WeekCommentsNot Currently0 (1 standard drink = 0.6 oz pure alcohol)caffeine: yesPHQ-2AnswerDate RecordedPatient Health Questionnaire-2 Gskfd387Sex and Gender InformationValueDate RecordedSex Assigned at VuupvDzad32/11/2023 10:51 AM EDTLegal OhpPovs1208/13/2022 7:11 PM EDT Gender NruqequwYkvf17/11/2023 10:51 AM EDTSexual OrientationNot on file documented as of this encounter Plan of Treatment DateTypeDepartmentCare Team (Latest Contact Info)Cxzttzcndma51/09/2026 2:30 PM EDTOffice Visit [facility] [place] [facility] [address] [place] [address] Weston Borja MD [address] [facility] [address] [place] [address] documented as of this encounter Visit Diagnoses Not on filedocumented in this encounter Care Teams Team MemberRelationshipSpecialtyStart DateEnd Date Weston Borja MD [address] [facility] [address] [place] [address] PCP - GeneralInternal Medicine10/07/22 Weston Borja MD [address] [facility] [address] [place] [address] PCP - Humana1documented as of this encounter
--- OUTSIDE RECORDS SUMMARY | 2025-05-09 23:22 | XMS_ITS | Encounter Summary ---
Author Organization [facility] Address [address] [facility] [facility] [place] [address] Care Team Providers Care Drilling Manager Name Role Phone Weston Borja MD Primary Care Provider [phone] Weston Borja MD Unavailable [phone] Encounter Details DateTypeDepartmentCare Team (Latest Contact Info)Qffcptzavtj91/09/2025Telephone [facility] [place] [facility] [address] [place] [address] Weston Borja MD [address] [place], [place] [address] Social History Tobacco UseTypesPacks/DayYears UsedDateSmoking Tobacco: NeverSmokeless Tobacco: NeverAlcohol UseStandard Drinks/WeekCommentsNot Currently0 (1 standard drink = 0.6 oz pure alcohol)caffeine: yesPHQ-2AnswerDate RecordedPatient Health Questionnaire-2 Voskt721Sex and Gender InformationValueDate RecordedSex Assigned at DioktDlyh65/11/2023 10:51 AM EDTLegal RtvJyrr2508/13/2022 7:11 PM EDT Gender DzhsimwfXolh90/11/2023 10:51 AM EDTSexual OrientationNot on file documented as of this encounter Miscellaneous Notes * Telephone Encounter - Sonia Evans - 05/09/2025 4:40 PM EST Waqas called he was in on Thursday and stated that Thursday night, his Blood Pressure was very high 205/95 . That was after both meds were taken. He took again this morning and it was still 179/92. He would appreciate a call back in the morning to clarify what he should do. He stated he thought had told him that he could take one of his meds again after 8 hrs, but was not sure on that? Please advise. documented in this encounter Plan of Treatment DateTypeDepartmentCare Team (Latest Contact Info)Ksmilxddvkn01/09/2026 2:30 PM EDTOffice Visit [facility] [place] [facility] [address] [facility] [address] [place] [address] Weston Borja MD [address] [facility] [address] [place] [address] documented as of this encounter Visit Diagnoses Not on filedocumented in this encounter Care Teams Team MemberRelationshipSpecialtyStart DateEnd Date Weston Borja MD [address] [facility] [address] [place] [address] PCP - GeneralInternal Medicine10/07/22 Weston Borja MD [address] [facility] [address] [place] [address] PCP - Humana1documented as of this encounter
--- OUTSIDE RECORDS SUMMARY | 2025-05-09 23:22 | XMS_ITS | Data Portability ---
Author Organization [place] - [facility] [employer], [facility] Address [address] [place] [address] Assessment Encounter Date Assessment Date Assessment LastModified [...] on medical history and patient complexity.germanya Not keirddcfg54/12/2024 14:47:46 Plan of Treatment Reminders Order DateSubmit DateProviderLast Modified ByOrganization DetailsLast Modified TimeDetailsAppointmentsNone recorded.LabNone recorded.Referralpsychologist lcazpdrp87THENANot juzrxtjfz89/13/2025 05:01:39ProceduresNone recorded.SurgeriesSPINAL CORD STIMULATOR TRIAL (SURG)allyn Not udshhhxrk32/12/2024 14:50:58ImagingMRI, lumbar spine, w/o hhxmmonb70/12/2024 12/11/2023THENANot isnrptgze79/13/2025 05:01:39Medication OrdersNone recorded. Patient TargetsNo targets recorded. Patient InstructionsNo instructions recorded. Reason for Referral Psychologist Referral for Po lyneuropathy Referring Physician: Dharmesh Orona, Pain Management, Encounter Date: 12/11/2023 Results Created Date Observation Date Name Description Value Unit Range Abnormal Flag Note LastModifiedBy Organization Detail LastModifiedTime 12/14/2023 XR, lumbosacral spineNo observation recorded.bjgvyudmol0Duw Fvluolcxw43/15/2024 10:23:40 Result Notes None recorded. Problems No Known Problems Medical Equipment None Reported. Allergies Allergen ID Allergen Name Allergen Category Reaction Reaction Severity Criticality Documentation Date Start Date Code Code System Note Provider Name and Address Organization Details Recorded Time 55528 Product containing penicillin (product) m edication Not available Not available Not emsjuaqhn90/12/[id number] J. Hedaya, MD [address] [place] [address], [phone], [facility]12/11/2023 14:31:04 Medications Name Sig Start Date Stop [...] No current problems or disabilit y ahedayaNot vluyydkbu96/12/2024 14:31:13MotherNo current problems or disability ahedayaNot omhtklkfi44/12/2024 14:31:13 Medical History Condition Response Diabetes Y Heart Disease Y Hypertension Y High Cholesterol Y Past Encounters Encounter ID Performer Location Encounter Start Date Encounter Closed Date Diagnosis/Indication Diagnosis SNOMED-CT Code Diagnosis ICD10 Code Diagnosis IMO Codes Diagnosis Note [id number] MD [place] [facility] [address] [place] [address] 12/11/2023 14:26:53 12/11/2023 15:15:32 Polyneuropathy 79492841 G62.9 Lumbosacral wcuuidvposnon7204982N56.17 Health Concerns Section Related Observation LastModified by Organization Detai ls LastModified Time None Recorded Concern Status LastModified by Organization Details LastModified Time None Recorded Advance Directives Directive None Recorded Payers Insurance Date Sequence Insurance Name Policy Number Policy Reeder Covered Member ID Reeder Member ID Guarantor Name 12/16/2023 1 [employer] (MEDICARE REPLACEMENT/ADVANTAGE - PPO) [id number] Frankie De Anda [id number] Frankie De Anda Notes Date Note Type [...] patient reportsemg,mri, andx-ray. Dharmesh Orona MD [address] [facility], [place], [address], [facility] 12/11/2023 14:51:29
--- OUTSIDE RECORDS SUMMARY | 2025-05-09 23:22 | XMS_ITS | Encounter Summary ---
Author Organization [facility] Address [address] [facility] [place] [address] Care Team Providers Care Supervisor Industrial Arts Education Name Role Phone Weston Borja MD Primary Care Provider [phone] Weston Borja MD Unavailable [phone] Encounter Details DateTypeDepartmentCare Team (Latest Contact Info)Mejkwnlftwp19/03/2025Travel Social History Tobacco UseTypesPacks/DayYears UsedDateSmoking Tobacco: NeverSmokeless Tobacco: NeverAlcohol UseStandard Drinks/WeekCommentsNot Currently0 (1 standard drink = 0.6 oz pure alcohol)caffeine: yesPHQ-2AnswerDate RecordedPatient Health Questionnaire-2 Tvcak560Sex and Gender InformationValueDate RecordedSex Assigned at ZkafoPvwa91/11/2023 10:51 AM EDTLegal AvkSmmj3208/13/2022 7:11 PM EDT Gender RnxychywXnpa97/11/2023 10:51 AM EDTSexual OrientationNot on file documented as of this encounter Plan of Treatment DateTypeDepartmentCare Team (Latest Contact Info)Qdgeluchpdc25/09/2026 2:30 PM EDTOffice Visit [facility] [place] [facility] [address] [place] [address] Weston Borja MD [address] [place] [id number] documented as of this encounter Visit Diagnoses Not on filedocumented in this encounter Care Teams Team MemberRelationshipSpecialtyStart DateEnd Date Weston Borja MD [address] [facility] [address] [place] [address] PCP - GeneralInternal Medicine10/07/22 Weston Borja MD [address] [facility] [address] [place] [address] PCP - Humana1documented as of this encounter
--- OUTSIDE RECORDS SUMMARY | 2025-05-09 23:22 | XMS_ITS | Clinical Summary ---
Author Organization [facility] Address [address] [place] [address] Care Team Providers Care Agricultural Services Director Name Role Phone Weston Borja MD Primary Care Provider [phone] Weston Borja MD Unavailable [phone] Allergies Active AllergyReactionsCriticalityNoted DateCommentsPenicillin V012/22/2022 Other Reaction(s): Unknown StfvgyhcxpaTkgqw45/19/2023 Other Reaction(s): Weakness - general Medications MedicationSigDispense [...] capsule (100 mg) before bedtime. 60 capsule 50//047274/6Active cloNIDine (Catapres) 0.1 MG tablet Indications:Essential (primary) hypertensionTake 1 tablet (0.1 mg) by mouth every 8 (eight) hours if needed for high blood pressure (Take if SBP is > 175) 60 tablet 509/15/284380/6Active fluticasone (Flonase) 50 MCG/ACT nasal spray Indications:Lesion [...] TOPICALLY IN THE MORNING AND BEFORE BEDTIME.5Active aspirin 81 MG EC tablet Take 81 mg by mouth DailyActive Qnxhbkbqude-Qdynzcxy-Gobjqjmxr 1-0.5-0.075 % solution Indications:Age-related nuclear cataract of both eyesAdminister 1 drop into affected eye(s) in the morning and 1 drop at noon and 1 drop in the evening and 1 drop before bedtime. 10 mL 5Active ciprofloxacin (Cipro) 250 MG tablet Indications:Acute cystitis without hematuriaTake 1 tablet (250 mg) by mouth in the morning and 1 tablet (250 mg) before bedtime. Do all this for 10 days. 10 tablet 5Active Active Problems ProblemNoted DateDiagnosed DateIntraoperative floppy iris syndrome (IFIS) 05/03/2025arotid stenosis, right03/29/2025Degenerative disc disease, lumbar 4Age-related nuclear cataract of both eyes04/06/2023PH with urinary xhtnshoaduu75/19/2023ardiac oxvzhy0001/17/2023Elevated PSA01/17/2023ross hicnpngyo27/19/7244Bupwjnaib57/19/2023Urinary riqlqkc5401/17/2023Incomplete bladder qvdokhyr47/19/2023Inferior myocardial tckdamopjs03/19/2023Irreducible left inguinal fntyxs3701/17/2023Idiopathic progressive atofjbamgp55/19/2023 Xfflqaxt23/19/2023Urethral nodjynmgw92/19/2023Weak urine punwtc5201/17/2023MI 33.0-33.9,adult01/17/20232940Oplqxrt04/19/2023AD (coronary artery disease) 01/17/20234635Aytlblxnqyad75/19/2023ERD (gastroesophageal reflux disease)01/17/2023 Elevated wqstsltxope80/19/6358Odbxpgwt81/19/2023cute maxillary sinusitis 12/22/2022rthritis of left hip12/22/2022lass 1 habashi5712/22/2022oronary bjxhsegckcbzhdh44/24/2023iabetic peripheral tynmeyonii61/24/2023Essential (primary) cbilbdmixfcx46/24/2023astroesophageal reflux pnyohao4312/22/2022 Fqvcqpgxsuojldxycfzw37/24/2023Lesion of nasal rfwgwm6412/22/2022OAB (overactive bladder)12/22/2022Osteoarthritis of knee12/22/2022lantar wart of left foot 12/22/2022Right sided /24/2023Right-sided carotid artery disease 12/22/2022Type 2 diabetes mellitus with rticwypuchg38/24/2023 Resolved Problems ProblemNoted DateDiagnosed DateResolved DateType 2 diabetes mellitus without ralinbxnjfdre42 Encounters DateTypeDepartmentCare YgsgFndkdddjcbb34/09/2025Telephone [facility] [place] [facility] [address] [facility] [address] [place] [address] Weston Borja MD 05/08/2025 2:00 PM ESTOffice Visit [facility] [place] [facility] [address] [facility] [address] [place] [address] Weston Borja MD Acute cystitis without hematuria (Primary Dx); Idiopathic progressive neuropathy; Essential (primary) brroaetjumdq51/08/2025amboo flowsheet [facility] [place] [facility] [address] [facility] [address] [place] [address] Weston Borja MD 05/08/20253715Fjzrni25/03/2025 1:30 PM ESTOffice Visit [facility] [address] [place] [address] Joaquín Ghosh, DO Age-related nuclear cataract of both eyes (Primary Dx); Intraoperative floppy iris syndrome (IFIS)05/03/2025amboo flowsheet [facility] [address] [place] [address] Joaquín Ghosh DO 05/03/20259212Oprfqv19/31/2025Patient Outreach [facility] [address] [place] [address] Mariajose Mc LPN 03/30/2025bstract [facility] [address] [place] [address] Mariajose Mc LPN 03/29/2025 1:30 PM EDTOffice Visit [facility] [place] [facility] [address] [facility] [address] [place] [address] Lindsay Estrada MD OME (otitis media with effusion), right (Primary Dx); Chronic dysfunction of right eustachian tube; CSF otorrhea; Hypertension, unspecified type; Nasal polyp03/29/2025amboo flowsheet [facility] [place] [facility] [address] [facility] [address] [place] [address] Lindsay Estrada MD 03/29/20259017Pfxlib55/10/2025linisync Result Encounter [facility] External Department Unsolicited Provider, Generic External Data 03/10/2025linisync Result Encounter [facility] External Department Unsolicited Provider, Generic External Data 03/09/2025Refill [facility] [address] [facility] [address] [place] [address] Weston Borja MD 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, without long-term current use of insulin, unspecified laterality (HCC); Pure hypercholesterolemia, unspecified; Essential (primary) ktgagflaldxb47/03/2025Refill [facility] [address] [facility] [address] [place] [address] Weston Borja MD Eczema, unspecified type03/03/2025Refill [facility] [address] [facility] [address] [place] [address] Tita Guzman PA Dysfunction of right eustachian tube03/02/2025Telephone [facility] [address] [place] [address] Weston Borja MD 02/21/2025 2:00 PM EDTOffice Visit [facility] [address] [place] [address] [address] [place] [address] Lindsay Estrada MD OME (otitis media with effusion), right (Primary Dx); Chronic dysfunction of right eustachian tube; CSF otorrhea; Cholesteatoma of external ear, right02/21/2025Refill [facility] [address] [facility] [address] [place] [address] Weston Borja MD Lesion of nasal fawggj9802/21/2025amboo flowsheet [facility] [place] [facility] [address] [facility] [address] [place] [address] Lindsay Estrada MD 02/21/20259510Ayjfxt08/15/2025 3:30 PM EDTOffice Visit [facility] [address] [facility] [address] [place] [address] Weston Borja MD Idiopathic progressive neuropathy (Primary Dx); 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, without long-term current use of insulin, unspecified laterality (HCC); Essential (primary) hypertension ; Allergic rhinitis, unspecified seasonality, unspecified trigger; Chronic dysfunction of right eustachian tube02/13/2025amboo flowsheet [facility] [address] [facility] [address] [place] [address] Weston Borja MD 02/13/20252382Nifmdn39/10/2025Telephone [facility] 100 [facility] 112 [facility] [address] [place] [address] Weston Borja MD from Last 3 Months Family History Medical HistoryRelationNameCommentsHeart diseaseFatherHeart failureFatherHeart diseaseMotherHyperlipidemiaMotherHypertensionMotherMelanomaSisterRelationName StatusCommentsFatherDeceasedMotherAliveOtherSpouseAliveSisterDeceased Social History Tobacco UseTypesPacks/DayYears UsedDateSmoking Tobacco: NeverSmokeless Tobacco: Never Tobacco Cessation:Counseling Given: Yes Alcohol UseStandard Drinks/WeekCommentsNot Currently0 (1 standard drink = 0.6 oz pure alcohol)caffeine: yesPHQ-2AnswerDate RecordedPatient Health Questionnaire-2 Mllvf073Sex and Gender InformationValueDate RecordedSex Assigned at HpjzxElxy12/11/2023 10:51 AM EDTLegal AieNnqq7508/13/2022 7:11 PM EDTGender NoamfffsAdoq02/11/2023 10:51 AM EDTSexual OrientationNot on file Last Filed Vital Signs Vital SignReadingTime TakenCommentsBlood Shikdqce362/7605/08/2025 2:01 PM EST Evznx406605/08/2025 2:01 PM EGVVcubulpogmf75.8 ??C (98.2 ??F)06/29/2024 3:01 PM ESTRespiratory Imuq379401/12/2025 2:02 PM EDTOxygen Nmflnegbwr89%05/08/2025 2:01 PM ESTInhaled Oxygen Concentration--Qfjust45 kg (205 lb)05/08/2025 2:01 PM EST Dpzbom065.1 cm (5' 5 )05/08/2025 2:01 PM ESTBody Mass Index34.11107/09/2024 2:01 PM EST Plan of Treatment DateTypeDepartmentCare Team (Latest Contact Info)Gimhlovgsra89/09/2026 2:30 PM EDTOffice Visit [facility] [place] [facility] 112 [facility] [address] [place] [address] Weston Borja MD 112 [facility] [address] [place] [address] Health MaintenanceDue DateLast DoneCommentsDiabetes: Urine Protein Screening 504COVID-19 Vaccine ( season)510/05/2021, 08/21/2020, 07/30/2020Influenza Vaccine (#1)2025Diabetes: Hemoglobin A1C 509/, 10/17/2024, 05/16/2024, Additional history exists Pneumococcal Vaccine: 65+ Years (1 of 2 - PCV)05/16/2025Postponed from 1967 (Patient Refused)Medicare Annual Wellness (AWV)605/, 05/16/2024, 3Diabetes: Retinopathy Gbgsdzlaf86/03/68810107/04/2024, 05/03/2025, 05/03/2025, Additional history existsColorectal Cancer Screening DiscontinuedFIT-WBFPjebwuipvleg24/26/2023CT ColonographyDiscontinuedColonoscopy DiscontinuedFITDiscontinuedFOBTDiscontinuedSigmoidoscopyDiscontinued Procedures Procedure NamePriorityDate/TimeAssociated DiagnosisCommentsPOCT URINALYSIS PAJINGLQAziupnu63/08/2025 3:08 PM EST Acute cystitis without hematuria IOL BIOMETRY - OU - BOTH PJBIXsarehh77/03/2025 2:10 PM EST Age-related nuclear cataract of both eyes CT INTERNAL AUDITORY CANALS/POSTERIOR FOSSA WO IV NLVTQXFV78/10/2025 5:[address] INTERNAL AUDITORY CANALS/POSTERIOR FOSSA W AND WO IV RGJNZJDP11/10/2025 5:08 PM EDT POCT GLYCATED HEMOGLOBIN, JGIRTDuwsxpm52/15/2025 4:29 PM EDT 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 COLON CANCER FONFIJEhpzdvx33/26/2023 8:50 PM EST Screening for colorectal cancer from Last 3 Months or Most Recently Relevant to Health Maintenance Results * POCT Urinalysis dipstick (05/08/2025 3:08 [...] Location / LateralityCollection Method / VolumeCollection TimeReceived RmfcPfsas32/08/2025 3:08 PM EST Narrative Authorizing ProviderResult TypeResult StatusDalillian Borja MDPOINT OF CARE TEST ENTER/EDIT ORDERABLESFinal Result * IOL Biometry - OU - Both Eyes (CPT 75830) (05/03/2025 2:10 PM EST)Anatomical RegionLateralityModalityHeadOtherSpecimen (Source)Anatomical Location [...] both eyes (OU). ?? Authorizing ProviderResult TypeResult StatusJoaquín LAWSON ULTRASOUND Final Result * CT internal auditory canals/posterior fossa w and wo IV contrast (03/10/2025 5:08 PM EDT)Anatomical RegionLateralityModalityHead, NeckComputed Tomography Specimen (Source)Anatomical Location / LateralityCollection Method / Volume Collection TimeReceived Time03/10/2025 5:08 PM EDT Addenda Addendum by Radiology, Radiologist, MD on 03/23/2025 2:02 PM EDT ?[facility] ?[address] ? [place] [address] ? CT Scan Report ?Cancelled ? Patient: LUCIE DE ANDA ? MR#: [id number] ?? : 1950 ? Acct:[id number] ?? Age/Sex: 74 / M ? ADM Date: 03/10/25 ?? Loc: CT ? Attending Dr: Lindsay Estrada M.D. ? Ordering Physician: ?? Date of Service: ?? Procedure(s): ?? Accession Number(s): ? cc: ? [facility] ? [address] ? [place] [address] ? Patient Name: ?? LUCIE DE ANDA ? MRN: [facility]:[id number] ? date: 1950 ?Sex: M ?? Assigned Patient Location: CT ?? Current Patient Location: CT ?? Accession/Order Number: [id number] ?? Exam Date: 03/10/2025 ??14:46 ?Report Date: 03/10/2025 ??17:08 ? At the request of: ?? LINDSAY ??NATALIE ??MD ? Procedure: ??CT int auditory canals wo/w [...] the maxillary ?? sinuses. ? Dictated By: ?Todd Hartman M.D. ? Signed By: ? DD/DT: 10 1708 ? TD/TT: ? Master Yacht: Narrative 03/10/2025 5:11 PM EDT [facility] ?[address] ? [place] [address] ? CT Scan Report ? Signed ? Patient: MISSIMI,LUCIE G ?MR#: [id number] ?? : 1950 ?Acct:[id number] ?? Age/Sex: 74 / M ?ADM Date: 03/10/25 ?? Loc: CT ? Attending Dr: Lindsay Estrada M.D. ? Ordering Physician: Lindsay Estrada M.D. ?? Date of Service: 03/10/25 ?? Procedure(s): CT int auditory canals wo/w ?? Accession Number(s): [id number] ? cc: WESTON BORJA ? [facility] ? [address] ? [place] [address] ? Patient Name: ?? LUCIE DE ANDA ? MRN: [facility]:[id number] ? date: 1950 ?Sex: M ?? Assigned Patient Location: CT ?? Current Patient Location: CT ?? Accession/Order Number: [id number] ?? Exam Date: 03/10/2025 ??14:46 ?Report Date: [...] M.D. ??03/10/2025 5:08 PM ? Dictation Location: RADIO-PC-23 ? Electronically authenticated by: [id number] ??Y ?? Date: 03/10/2025 ??17:08 ? Dictated By: ?Todd Hartman M.D. ? Signed By: ?03/10/25 1711 ? DD/ 1708 ? TD/TT: ? Master Yacht: Procedure Note Radiology, Radiologist, - 03/23/2025 [place] [address] CT Scan Report Signed Patient: LUCIE DE ANDA GMR#: [id number] : 1950cct:[id number] Age/Sex: 74 / MADM Date: 03/10/25 Loc: CT Attending Dr: Lindsay Estrada M.D. Ordering Physician: Lindsay Estrada M.D. Date of Service: 03/10/25 Procedure(s): CT int auditory canals wo/w Accession Number(s): [id number] cc: WESTON BORJA [place] [address] Patient Name: LUCIE DE ANDA MRN: [id number] date: 1950 Sex: M Assigned Patient Location: CT Current Patient Location: CT Accession/Order Number: [id number] Exam Date: 03/10/2025 14:46 Report Date: 03/10/2025 [...] Hartman M.D. 03/10/2025 5:08 PM Dictation Location: [place] [address] Electronically authenticated by: [id number] Y Date: :08 Dictated By: Todd Hartman M.D. Signed By:03/10/25 171 DD/ 07 TD/TT: Master Yacht: Authorizing ProviderResult TypeResult StatusGeneric External Data ProviderIMG CT PROCEDURESEdited Result - Final * CT internal auditory canals/posterior fossa wo IV contrast (03/10/2025 5:08 PM EDT)Anatomical RegionLateralityModalityHead, NeckComputed TomographySpecimen (Source)Anatomical Location / LateralityCollection Method / VolumeCollection TimeReceived Time03/10/2025 5:08 PM EDT Narrative 03/23/2025 1:51 PM EDT [facility] ?[address] ? [place], [facility] ? CT Scan Report ? Signed ? Patient: LENNOXLUCIE G ?MR#: [id number] ?? : 1950 ?Acct:[id number] ?? Age/Sex: 74 / M ?ADM Date: 03/10/25 ?? Loc: CT ? Attending Dr: Lindsay Estrada M.D. ? Ordering Physician: Lindsay Estrada M.D. ?? Date of Service: 03/10/25 ?? Procedure(s): CT int auditory canals w/o con ?? Accession Number(s): [id number] ? cc: WESTON BORJA ? [facility] ? [address] ? [place] [address] ? Patient Name: ?? LUCIE DE ANDA ? MRN: [facility]:[id number] ? date: 1950 ?Sex: M ?? Assigned Patient Location: CT ?? Current Patient Location: CT ?? Accession/Order Number: [id number] ?? Exam Date: 03/10/2025 ??14:30 ?Report Date: [...] M.D. ??03/10/2025 5:08 PM ? Dictation Location: RADIO-PC-23 ? Electronically authenticated by: [id number] ??Y ?? Date: 03/10/2025 ??17:08 ? Dictated By: ?Todd Hartman M.D. ? Signed By: ?03/23/25 1351 ? DD/ 1708 ? TD/TT: ? Master Yacht: Procedure Note Radiology, Radiologist, MD - 03/23/2025 [place] [address] CT Scan Report Signed Patient: LUCIE DE ANDA GMR#: [id number] : 1950cct:[id number] Age/Sex: 74 / MADM Date: 03/10/25 Loc: CT Attending Dr: Lindsay Estrada M.D. Ordering Physician: Lindsay Estrada M.D. Date of Service: 03/10/25 Procedure(s): CT int auditory canals w/o con Accession Number(s): [id number] cc: WESTON BORJA The [place] [id number] Patient Name: LUCIE DE ANDA MRN: [id number] date: 1950 Sex: M Assigned Patient Location: CT Current Patient Location: CT Accession/Order Number: [id number] Exam Date: 03/10/2025 14:30 Report Date: 03/10/2025 [...] Hartman M.D. 03/10/2025 5:08 PM Dictation Location: [place] [address] Electronically authenticated by: [id number] Y Date: 7:08 Dictated By: Todd Hartman M.D. Signed By:03/23/25 3889 DD/ 4778 TD/TT: Master Yacht: Authorizing ProviderResult TypeResult StatusGeneric External Data ProviderIMG CT PROCEDURESFinal Result * POCT Glycated hemoglobin, total (02/13/2025 4:29 PM EDT)ComponentValueRef RangeTest MethodAnalysis TimePerformed AtPathologist SignatureHemoglobin A1C 6.6Specimen (Source)Anatomical Location / LateralityCollection Method / Volume Collection TimeReceived DgvqBvafg94/15/2025 4:29 PM EDT Narrative Authorizing ProviderResult TypeResult Anneliese Borja MDPOINT OF CARE TEST ENTER/EDIT ORDERABLESFinal Result * Microalbumin / creatinine, urine ratio (07/17/2023 11:02 AM EST)ComponentValue Ref RangeTest MethodAnalysis TimePerformed AtPathologist SignatureCREATININE, RANDOM LJOLR5417 - 320 mg/dLQUESTALBUMIN, URINE0.2See Note: mg/dLQUESTComment: Reference [...] specimen obtained by clean catch procedure / Niskjpy1907/17/2023 11:02 AM EST07/17/2023 11:02 AM EST Narrative Resulting Agency Comment Performing Organization Information ?Site ID: [id number] ?Name: [facility] ?Address: [address] [place] [address], [address] [place] [phone] ?Director: Sagar Pathak MD Authorizing ProviderResult TypeResult StatusWeston Borja MDLAB URINE ORDERABLESFinal ResultPerforming OrganizationAddressCity/State/ZIP CodePhone Number QUEST * Cologuard?? colon cancer screening (05/26/2023 8:50 PM EST)ComponentValueRef RangeTest MethodAnalysis TimePerformed AtPathologist SignatureNONINV COLON CA DNA+OCC BLD SCRN STL-QNIRanhsggdCiggzeec31/02/2024 5:58 PM IDIN[facility] (CLIA #:[id number])Comment: NEGATIVE TEST RESULT. A negative Cologuard result [...] screened with both Cologuard and colonoscopy. (Divina Lucio et al, N Engl J Med 2014;370(14):5968-7995) The normal value (reference range) for this assay is negative. COLOGUARD RE-SCREENING RECOMMENDATION: Periodic colorectal cancer screening is an important part ofpreventive healthcare for asymptomatic individuals at average risk for colorectal cancer. ??Following a negative Cologuard result, the [place] [employer] and U.S. Multi-Society Task Force screening guidelines recommend a Cologuard re-screening interval of 3 years. References: [place] [employer] Guideline for Colorectal Cancer Screening: https://www.cancer.or g/cancer/dvvvk-cxylxk-gubooi/guhqtmnky-iqlsaaril-xscmnhi/acs-recommendations.htm rachele; Jasper PAGE, Lloyd WALDROP, Shandra GarciaK, Colorectal Cancer Screening: Recommendations for Physicians and Patients from the U.S. Multi-Society Task Force on Colorectal Cancer Screening , Am J Gastroenterology 2017; 112:0046-0467. TEST DESCRIPTION: Composite algorithmic analysis of stool [...] with both Cologuard and colonoscopy. (Divina Barbosa. et al, N Engl J Med 2014;370(14):7801-1341.) Cologuard may produce a false negative or false positive result (no colorectal cancer or precancerous polyp present at colonoscopy follow up). A negative Cologuard test result does not guarantee the absence of CRC or advanced adenoma (pre-cancer). The current Cologuard screening interval is every 3 years. ([place] [employer] and U.S. Multi-Society Task Force). Cologuard performance data in a 10,000 patient pivotal study using colonoscopy as the reference method can be accessed at the following location: www.Absolute Antib[employer].Smilebox/results. Additional description of the Cologuard test process, warnings and precautions can be found at www.cologuard.com. Specimen (Source)Anatomical Location / LateralityCollection Method / Volume Collection TimeReceived TimeStool specimen (specimen)05/26/2023 8:50 PM EST 05/28/2023 9:39 AM EST Narrative Authorizing ProviderResult TypeResult StatusDalillian BONDS MOLECULAR DIAGNOSTICS ORDERABLESFinal ResultPerforming OrganizationAddressCity/State/ZIP CodePhone Number .[employer] (CLIA #:[id number]) [address] [place] [address], [employer] (CLIA #:[id number]) [address] [place] [address] from Last 3 Months or Most Recently Relevant to Health Maintenance Insurance Care Teams Team MemberRelationshipSpecialtyStart DateEnd Weston Borja MD [address] [facility] [address] [place] [address] PCP - GeneralInternal Medicine10/07/22 Weston Borja MD [address] [facility] [address] [place] [address] PCP - Human06/01/20
[2025-05-09 23:30] VITALS: BP 166/74; O2SAT 98
[2025-05-09 23:34] LABS: Hematocrit 39.5 % (42.0-54.0); Hemoglobin 13.2 g/dL (14.0-18.0); Immature Granulocytes Abs Auto 0.16 10^3/uL (0.00-0.03); Immature Granulocytes Pct Auto 1.9 % (0.0-0.5); Lymphocytes Absolute Auto 1.7 10^3/uL (1.2-3.8); Mean Corpuscular HGB Conc 33.4 g/dL (29.9-35.2); Mean Corpuscular Hemoglobin 28.2 pg (25.9-34.0); Mean Corpuscular Volume 84.4 fL (80.0-94.0); Platelet Count 223 10^3/uL (150-450); Red Blood Count 4.68 10^6/uL (4.70-6.10); White Blood Count 8.5 10^3/uL (4.0-11.0)
[2025-05-09 23:40] VITALS: O2SAT 98
--- NOTE | 2025-05-09 23:42 | PC.NURSE ---
this patient requesting a hold on the medication for a couple more blood pressure readings, Dr Garduno is aware of this
[2025-05-09 23:50] VITALS: O2SAT 96
[2025-05-09 23:54] LABS: Anion Gap 7.5; Blood Urea Nitrogen 11.0 mg/dL (7.0-18.0); Calcium 9.2 mg/dL (8.5-10.1); Carbon Dioxide 30.6 mmol/L (21.0-32.0); Chloride 105 mmol/L (98-107); Estimated GFR (African America >60 (>=60 mL/min/1.73m^2); Estimated GFR (Non-African Ame >60 (>=60 mL/min/1.73m^2); Glucose 161 mg/dL (74-106); Potassium 4.1 mmol/L (3.5-5.1); Sodium 139 mmol/L (136-145)
[2025-05-10] VITALS (14 sets, daily range): BP systolic 106–184; BP diastolic 68–91; PULSE 85; TEMP 36.8; O2SAT 93–100
[2025-05-10] MEDS: HYDRALAZINE HCL 20 MG/ML VIAL 10 MG IVP (00:12)
[2025-05-10 00:14] LABS: Glucose Urine UA NEGATIVE (NEGATIVE)
[2025-05-10 00:20] LABS: Cast Seen? NONE SEEN #/LPF (NONE SEEN); Crystals Seen? None Seen #/HPF (None Seen); Urine Culture Indicated NO
--- NOTE | 2025-05-10 01:41 | PC.NURSE ---
this patient awake and alert sitting upright on the bed taking to his sister, who is at bedside
== END 2025-05-10 02:07 | disposition home or self-care (01) ==
PROVIDERS: Emergency Provider Internal Medicine; PCP Internal Medicine
DX: I10 Essential (primary) hypertension (principal); Z79.899 Other long term (current) drug therapy
CPT/HCPCS: 36415; 80048; 81001; 84484; 85025; 96374; 99284; J0360

== ENCOUNTER 2025-05-18 10:00 | Emergency (ER) | payer MEDICARE, SELFPAY ==
--- OUTSIDE RECORDS SUMMARY | 2025-05-08 14:00 | XMS_ITS | Encounter Summary ---
Author Organization [facility] Address [address] [place] [address] Care Team Providers Care Compressed Air Pile Driver Operator Name Role Phone Weston Borja MD Primary Care Provider [phone] Weston Borja MD Unavailable [phone] Reason for Visit * ReasonCommentsHypertensionwould like urine checked for infection Encounter Details DateTypeDepartmentCare Team (Latest Contact Info)Flxzjvpjcpc18/08/2025 2:00 PM ESTOffice Visit [facility] [place] [facility] [address] [facility] [address] [place] [id number] Weston Borja MD [address] [facility] [address] [place] [address] Acute cystitis without hematuria (Primary Dx); Idiopathic progressive neuropathy; Essential (primary) hypertension Social History Tobacco UseTypesPacks/DayYears UsedDateSmoking Tobacco: NeverSmokeless Tobacco: NeverAlcohol UseStandard Drinks/WeekCommentsNot Currently0 (1 standard drink = 0.6 oz pure alcohol)caffeine: yesPHQ-2AnswerDate RecordedPatient Health Questionnaire-2 [id number] and Gender InformationValueDate RecordedSex Assigned at BipejYnqe20/11/2023 10:51 AM EDTLegal KusQgne8108/13/2022 7:11 PM EDT Gender WbufqmcvVqoi68/11/2023 10:51 AM EDTSexual OrientationNot on file documented as of this encounter Last Filed Vital Signs Vital SignReadingTime TakenCommentsBlood Jwwrotrd425/7605/08/2025 2:01 PM EST Jbaue693505/08/2025 2:01 PM ESTTemperature--Respiratory Rate--Oxygen Btnuozhmsj70% 05/08/2025 2:01 PM ESTInhaled Oxygen Concentration--Xwzosp15 kg (205 lb) 05/08/2025 2:01 PM PSXUvzapr227.1 cm (5' 5 )05/08/2025 2:01 PM ESTBody Mass Index34.11107/09/2024 2:01 PM ESTdocumented in this encounter Progress Notes * Weston Borja MD - 05/08/2025 2:00 PM EST Images from the original note were not included. Subjective Patient ID: Frankie De Anda is a 74 y.o. male who presents for Hypertension and would like urine checked for infection. Hypertension Patient is here for follow-up of elevated blood pressure.Blood pressure is well controlled at home.Cardiac symptoms: none. Patient denies chest pain, claudication, fatigue, lower extremity edema, near-syncope, orthopnea, palpitations, paroxysmal nocturnal dyspnea, syncope, and tachypnea. Cardiovasc ular risk factors: advanced age (older than 55 for men, 65 for women), diabetes mellitus, hypertension, and male gender. Taking all meds as directed Pt states last week he had a fever and urinary frequency states it seems like it has improved but requested UA be performed Hypertension Diabetes Current Outpatient Medications on File Prior to Visit Medication Sig Dispense Refill aspirin 81 MG [...] mg by mouth Daily) 90 tablet 3 Cetyfkelzjf-Ngneudnx-Lsbuovfgy 1-0.5-0.075 % solution Administer 1 drop into affected eye(s) in themorning and 1 drop at noon and 1 drop in the evening and 1 drop before bedtime. 10 mL 1 pregabalin (Lyrica) 100 MG capsule Take 1 [...] with the patient today. Allergies Allergen Reactions Penicillin V Other Reaction(s): [...] 2017 carotid stenosis TONSILLECTOMY Visit Vitals BP 132/76 Pulse 70 Ht 5' 5 Wt 205 lb SpO2 98% BMI 34.11 kg/m?? Smoking Status Never BSA 2.07 m?? Review of Systems Objective Physical Exam Constitutional: [...] all orders for this visit: Acute cystitis without hematuria - POCT Urinalysis dipstick - ciprofloxacin (Cipro) 250 MG tablet; Take 1 tablet (250 mg) by mouth in the morning and 1 tablet (250 mg) before bedtime. Do all this for 10 days. Idiopathic progressive neuropathy Essential (primary) hypertension Other orders - Follow Up In Family Medicine; Future Follow up with Dr. Weston Borja in 3 months (on 08/06/2025). documented in this encounter Plan of Treatment DateTypeDepartmentCare Team (Latest Contact Info)Ykjnqyqshig09/29/2025 2:30 PM ESTOffice Visit [facility] [place] [facility] [address] [facility] [address] [place] [phone] Lindsay Robledo MD [address] [place] [address] 05/29/2025 4:00 PM ESTOffice Visit [facility] [place] [facility] [address] [place] [address] Weston Borja MD [address] [place] [address] 08/07/2025 2:30 PM EDTOffice Visit [facility] [place] [facility] [address] [place] [address] Weston Borja MD [address] [place] [address] documented as of this encounter Procedures Procedure NamePriorityDate/TimeAssociated DiagnosisCommentsPOCT URINALYSIS OUTKTILDIanbefp16/08/2025 3:08 PM EST Acute cystitis without hematuria documented in this encounter Results * POCT Urinalysis dipstick (05/08/2025 3:08 PM EST)ComponentValueRef RangeTest MethodAnalysis TimePerformed AtPathologist SignatureGlucose, UANegative Negative - 2000(110) ++++ mg/dLBilirubin, UANegativeNegative - 4(70) +++ mg/dL Ketones, UANegativeNegative - 160(16) ++++ mg/dLSpec Grav, UA1.0251 - 1.03 Blood, UAPositiveNegative - 50 Gabriel/mcLComment:tracepH, UA5.05 - 9Protein, UA TraceNegative - 2000(20) ++++ mg/dLUrobilinogen, UA0.20.2 - 12 mg/dL Leukocytes, UAFewNegative - 500+++ Luzma/mcLNitrite, UANegativeNegative - PositiveSpecimen (Source)Anatomical Location / LateralityCollection Method / VolumeCollection TimeReceived NbvvEfdqk48/08/2025 3:08 PM EST Narrative Authorizing ProviderResult TypeResult StatusDanimichele Borja MDPOINT OF CARE TEST ENTER/EDIT ORDERABLESFinal Result documented in this encounter Visit Diagnoses Diagnosis Acute cystitis without hematuria- Primary Idiopathic progressive neuropathy Essential (primary) hypertension Unspecified essential hypertension documented in this encounter Care Teams Team MemberRelationshipSpecialtyStart DateEnd Date Weston Borja MD [address] [facility] [address] [place] [address] PCP - GeneralInternal Medicine10/07/22 Weston Borja MD [address] [facility] [address] [place] [address] PCP - Human06/01/20documented as of this encounter
[2025-05-18] VITALS (16 sets, daily range): BP systolic 136–184; BP diastolic 71–90; PULSE 57–70; TEMP 36.8; O2SAT 96–99; BMI 31.0
--- NOTE | 2025-05-18 10:14 | ECG_ITS ---
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 Measurements Intervals [place] Rate: 69 P: 61 [place]: 162 QRS: 24 QRSD: 76 T: 21 QT: 392 QTc: 411 Interpretive Statements 1100 Sinus rhythm 8102 Low QRS voltage in chest leads 9120 atypical ECG Compared to ECG 03/29/2025 14:51:34 No significant changes Electronically Signed On 05-18-2025 18:12:04 EST by ZENIA FUNES M.D.
--- NOTE | 2025-05-18 10:14 | XR_ITS ---
The [address] [address] Patient Name: LUCIE HIGH MRN: [id number] date: 1950 Sex: M Assigned Patient Location: ED.MAIN Current Patient Location: ED.MAIN Accession/Order Number: [id number] Exam Date: 05/18/2025 10:26 Report Date: 05/18/2025 10:47 At the request of: LORETTA NEVAREZ MD Procedure: XR chest 1V PORTABLE AP ERECT CHEST 1006 hours CLINICAL HISTORY: Chest pain and pressure COMPARISON: 07/18/2024 The heart is borderline enlarged. There is no vascular congestion. Atelectasis and/or scarring is again seen. No developing consolidation is noted. There is no effusion or pneumothorax. The osseous structures are intact. There is slight dextroscoliotic curvature and endplate spurring at the spine. XR/XR chest 1V IMPRESSION: MILD CHRONIC CHANGES. NO ACUTE FINDINGS Impression dictated by: Tita Castaneda M.D. 05/18/2025 10:47 AM Dictation Location: [email or web address] Electronically authenticated by: [id number] Y Date: 05/18/2025 10:47
--- NOTE | 2025-05-18 10:14 | ED_ITS ---
HPI - Chest Pain General Chief Complaint: Chest Pain Stated Complaint: CHEST PRESSURE Time Seen by Provider: 05/18/25 10:14 History of Present Illness HPI narrative: The patient is 74-year-old male who have a history of hypertension hyperlipidemia and diabetes type 2 with history of coronary artery disease the patient mentioned that he had a minor heart attack in 2005, but he did not have any stents placed and at that time he had the workup done in [facility] The patient denies any nausea vomiting but he mentioned that he over the last 1 hour had felt some pressure in his chest mostly at the retrosternal area, no dizziness He also noted that his blood pressure was elevated at 180 systolic at home The patient gave the pain 7 out of 10, no shortness of breath no sweating and no dizziness Related Data Home Medications ?Medication ?Instructions ?Recorded ?Confirmed carvedilol 12.5 mg tablet 25 mg PO Q12H 12/01/2205/18 fluticasone propionate 50 1 spray intranasal Q12H 08/2105/18/25 mcg/actuation nasal spray,suspension rosuvastatin 5 mg tablet 5 mg PO QDAY 12/01/22 glimepiride 2 mg tablet 2 mg PO DAILY 01/04/2505/18 pregabalin 100 mg capsule 100 mg PO Q12H 01/04/2505/01 tamsulosin 0.4 mg capsule 0.4 mg PO DAILY 01/04/25 clonidine HCl 0.1 mg tablet 0.1 mg PO DAILY 03/29/25 1 07/19/24 Allergies Allergy/AdvReac Type Severity Reaction Status Date / Time Penicillins Allergy muscle Verified 05/09/25 22:39 numbness Review of Systems ROS Status of ROS 10 or more systems reviewed and unremark able except as noted in history and below [facility] Medical History (Updated 05/18/25 @ 13:39 by Julianna Sinclair MD) Incarcerated left inguinal hernia ?K40.30 - Unilateral inguinal hernia, with obstruction, without gangrene, not specified as recurrent (ICD-10) GERD (gastroesophageal reflux disease) ?K21.9 - Gastro-esophageal reflux disease without esophagitis (ICD-10) Elevated PSA ?R97.20 - Elevated prostate specific antigen [PSA] (ICD-10) BPH (benign prostatic hyperplasia) ?N40.0 - Benign prostatic hyperplasia without lower urinary tract symptoms (ICD-10) Neuropathy ?G62.9 - Polyneuropathy, unspecified (ICD-10) Arthritis ?M19.90 - Unspecified osteoarthritis, unspecified site (ICD-10) COVID-19 ?U07.1 - COVID-19 (ICD-10) Hypertension ?I10 - Essential (primary) hypertension (ICD-10) Myocardial infarction ?I21.9 - Acute myocardial infarction, unspecified (ICD-10) Heart murmur ?R01.1 - Cardiac murmur, unspecified (ICD-10) High cholesterol ?E78.00 - Pure hypercholesterolemia, unspecified (ICD-10) Diabetes ?E11.9 - Type 2 diabetes mellitus without complications (ICD-10) Hernia ?K46.9 - Unspecified abdominal hernia without obstruction or gangrene (ICD- 10) Surgical History History of circumcision ?Z98.890 - Other specified postprocedural states (ICD-10) S/P carotid endarterectomy ?Z98.890 - Other specified postprocedural states (ICD-10) History of tonsillectomy ?Z90.89 - Acquired absence of other organs (ICD-10) Family History (Updated 12/01/22 @ 11:31 by Jayda Martinez NP) Other Family history of heart disease Family history of hypertension Family history of myocardial infarction Family history of skin cancer Social History (Updated 12/01/22 @ 11:22 by Jayda Martinez NP) Within the past year, how often did you have a drink containing alcohol: monthl y or less Smoking status: Never smoker Non-prescribed substance use: denies use Highest level of school completed/degree received: high school graduate Little interest or pleasure in doing things: not at all Feeling down, depressed, or hopeless: not at all Exam Narrative Exam Narrative: Nurses notes and vital signs reviewed and patient is not hypoxic. General: Well-appearing and in no apparent distress. Skin: Warm, dry, no pallor noted. No rash. Head: Normocephalic, atraumatic. Neck: Supple, non-tender. Eye: Pupils are equal, round and EOMI. No scleral icterus. Cardiovascular: Regular Rate and Rhythm without murmur, gallop or rub. Respiratory: No accessory muscle use or respiratory distress. Lungs are clear to auscultation, no wheezing, rales or rhonchi Chest Wall: no tenderness Back: No midline thoracic or lumbar vertebral tenderness. No CVA tenderness Musculoskeletal: normal ROM, no calf or popliteal tenderness, no lower extremity edema/swelling GI: Abdomen is soft, non-distended. Normal bowel sounds. No masses appreciated. No tenderness to palpation. No rebound, guarding, or rigidity noted. Neurological: A&O x4. No cranial nerve dysfunction observed. No truncal ataxia. Moves all extremities. Sensation intact. Psychiatric: Cooperative and interactive. Normal mood and affect. Constitutional Vital Signs, click to edit/add: Last Vital Signs Temp 98.2 F 05/18/25 10:10 Pulse 57 L 05/18/25 13:02 Resp 19 05/18/25 13:02 BP 174/83 H 05/18/25 13:02 Pulse Ox 96 05/18/25 12:00 O2 Del Method Room Air 05/18/25 10:10 Course Vital Signs Vital signs: Vital Signs Temperature 98.2 F 05/18/25 10:10 Pulse Rate 69 05/18/25 10:10 Respiratory Rate 13 05/18/25 10:10 Blood Pressure 184/89 H 05/18/25 10:10 Pulse Oximetry 99 05/18/25 10:10 Oxygen Delivery Method Room Air 05/18/25 10:10 Temperature 98.2 F 05/18/25 10:10 Pulse Rate 57 L 05/18/25 13:02 Respiratory Rate 19 05/18/25 13:02 Blood Pressure 174/83 H 05/18/25 13:02 Pulse Oximetry 96 05/18/25 12:00 Oxygen Delivery Method Room Air 05/18/25 10:10 MDM - Chest Pain MDM Narrative Medical decision making narrative: The patient EKG upon arrival showing sinus rhythm with a heart rate of [address] elevation nonspecific T wave inversion lead III The patient CBC initially showed no acute pathology and the troponin was 17 and the chemistry was within normal Patient initially provided with nitroglycerin that dropped his blood pressure from 180-130 after which the patient had no more symptoms The patient second troponin repeated showed that the patient troponin is above 500 The patient also had a repeated EKG that shows that the T wave inversion in lead III was corrected and the patient have a new T wave inversion in lead aVL and there is a flattening of V3 that was not there before Patient blood pressure at that time was 140 systolic I did discuss the case with Dr. Graham as this was where the patient initially went to in 2005, Dr. Graham recommended that the patient in addition to the aspirin and heparin be transferred to [facility] for cardiac cath as soon as possible, I did speak with Dr. Wolfe in the emergency room and [facility] and he accepted the patient Initially the patient had a lot of question about [facility] because he said that it was called [facility] before and now it is called [facility], he wanted me to speak with his primary care doctor office to make sure that he is okay with him going to [facility] I did call Dr. Alvarenga's office and of course he is on board with the patient being transferred to get cardiac helmet hat sweatband puncher Data Labs: Lab Results 05/18/25 05/18/25 Range/Units 10:19 12:03 WBC 8.8 (4.0-11.0) 10^3/uL RBC 4.79 (4.70-6.10) 10^6/uL Hgb 13.4 L (14.0-18.0) g/dL Hct 40.7 L (42.0-54.0) % MCV 85.0 (80.0-94.0) fL MCH 28.0 (25.9-34.0) pg MCHC 32.9 (29.9-35.2) g/dL RDW 13.9 (11.0-15.0) % Plt Count 226 (150-450) 10^3/uL MPV 8.7 L (9.5-13.5) fL Neut % (Auto) 64.7 (43.0-75.0) % Lymph % (Auto) 21.5 (20.5-60.0) % Coke % (Auto) 7.8 (1.7-12.0) % Eos % (Auto) 4.6 (0.9-7.0) % Baso % (Auto) 0.5 (0.2-2.0) % Neut # (Auto) 5.7 (1.4-6.5) 10^3/uL Lymph # (Auto) 1.9 (1.2-3.8) 10^3/uL Coke # (Auto) 0.7 (0.3-0.8) 10^3/uL Eos # (Auto) 0.4 (0.0-0.7) 10^3/uL Baso # (Auto) 0.0 (0.0-0.1) 10^3/uL Abs Immat Gran (auto) 0.08 H (0.00-0.03) 10^3/uL Imm/Tot Granulo (auto) 0.9 H (0.0-0.5) % PT 11.0 (9.0-11.6) sec INR 1.05 APTT 30.0 (22.3-36.2) sec Sodium 135 L (136-145) mmol/L Potassium 4.3 (3.5-5.1) mmol/L Chloride 100 (98-107) mmol/L Carbon Dioxide 29.6 (21.0-32.0) mmol/L Anion Gap 9.7 BUN 13.0 (7.0-18.0) mg/dL Creatinine 1.07 (0.70-1.30) mg/dL Est GFR ( Amer) >60 (>=60 mL/min/1.73m^2) Est GFR (Non-Af Amer) >60 (>=60 mL/min/1.73m^2) BUN/Creatinine Ratio 12.1 Glucose 213 H (74-106) mg/dL Calcium 8.8 (8.5-10.1) mg/dL Magnesium 2.1 (1.8-2.4) mg/dL Total Bilirubin 0.5 (0.2-1.0) mg/dL AST 16 (15-37) U/L ALT 23 (16-63) U/L Alkaline Phosphatase 76 (46-116) U/L Troponin I High Sens 17.3 547.9 H* (4.0-76.1) pg/mL Total Protein 7.1 (6.4-8.2) g/dL Albumin 3.1 L (3.4-5.0) g/dL Globulin 4.0 g/dL Albumin/Globulin Ratio 0.8 Discharge Plan Discharge Chief Complaint: Chest Pain Clinical Impression: Non-ST elevation [place] (NSTEMI), Chest pressure Patient Disposition: [facility] Time of Disposition Decision: 13:39 Discharge location: Dr. Graham/Dr. Wolfe/[facility]
[2025-05-18 10:24] LABS: Hematocrit 40.7 % (42.0-54.0); Hemoglobin 13.4 g/dL (14.0-18.0); Immature Granulocytes Abs Auto 0.08 10^3/uL (0.00-0.03); Immature Granulocytes Pct Auto 0.9 % (0.0-0.5); Lymphocytes Absolute Auto 1.9 10^3/uL (1.2-3.8); Mean Corpuscular HGB Conc 32.9 g/dL (29.9-35.2); Mean Corpuscular Hemoglobin 28.0 pg (25.9-34.0); Mean Corpuscular Volume 85.0 fL (80.0-94.0); Platelet Count 226 10^3/uL (150-450); Red Blood Count 4.79 10^6/uL (4.70-6.10); White Blood Count 8.8 10^3/uL (4.0-11.0)
[2025-05-18 10:38] LABS: INR 1.05; Prothrombin Time 11.0 sec (9.0-11.6)
[2025-05-18 10:40] LABS: Alanine Aminotransferase 23 U/L (16-63); Albumin Globulin Ratio 0.8; Albumin Level 3.1 g/dL (3.4-5.0); Alkaline Phosphatase 76 U/L (46-116); Anion Gap 9.7; Aspartate Amino Transferase 16 U/L (15-37); Blood Urea Nitrogen 13.0 mg/dL (7.0-18.0); Calcium 8.8 mg/dL (8.5-10.1); Carbon Dioxide 29.6 mmol/L (21.0-32.0); Chloride 100 mmol/L (98-107); Estimated GFR (African America >60 (>=60 mL/min/1.73m^2); Estimated GFR (Non-African Ame >60 (>=60 mL/min/1.73m^2); Globulin 4.0 g/dL; Glucose 213 mg/dL (74-106); Potassium 4.3 mmol/L (3.5-5.1); Sodium 135 mmol/L (136-145); Total Protein 7.1 g/dL (6.4-8.2)
[2025-05-18 10:44] LABS: Magnesium 2.1 mg/dL (1.8-2.4)
[2025-05-18] MEDS: NITROGLYCERIN 0.4 MG BOTTLE SL ×2 (10:51→13:53)
[2025-05-18] MEDS: FAMOTIDINE/PF 20 MG/2 ML VIAL IV (10:51)
--- OUTSIDE RECORDS SUMMARY | 2025-05-18 11:36 | XMS_ITS | Encounter Summary ---
Author Organization [facility] Address [address] [place] [address] Care Team Providers Care Avionics Systems Technician Name Role Phone Weston Borja MD Primary Care Provider [phone] Weston Borja MD Unavailable [phone] Encounter Details DateTypeDepartmentCare Team (Latest Contact Info)Thdmhkyfwat48/09/2025Telephone [facility] [place] [facility] [address] [place] [phone] Weston Borja MD [address] [place], [place] [id number] Social History Tobacco UseTypesPacks/DayYears UsedDateSmoking Tobacco: NeverSmokeless Tobacco: NeverAlcohol UseStandard Drinks/WeekCommentsNot Currently0 (1 standard drink = 0.6 oz pure alcohol)caffeine: yesPHQ-2AnswerDate RecordedPatient Health Questionnaire-2 [id number] and Gender InformationValueDate RecordedSex Assigned at ZfsqkGhtc07/11/2023 10:51 AM EDTLegal WccTdfh9408/13/2022 7:11 PM EDT Gender KycrpredFyjh24/11/2023 10:51 AM EDTSexual OrientationNot on file documented as of this encounter Miscellaneous Notes * Telephone Encounter - Weston Borja MD - 05/10/2025 12:07 PM EST Called and discussed. He will make an appt within 2 weeks. Increase BP med, Corg 25mg bid + Clonidine 0.1mg po bid. * Telephone Encounter - Sonia Evans - [...] Plan of Treatment DateTypeDepartmentCare Team (Latest Contact Info)Sugmiyansvs85/29/2025 2:30 PM ESTOffice Visit [facility] [place] [facility] [address] [place] [address] Lindsay Robledo MD [address] [place] [address] 05/29/2025 4:00 PM ESTOffice Visit [facility] [place] [facility] [address] [place] [address] Weston Borja MD [address] [place] [address] 08/07/2025 2:30 PM EDTOffice Visit [facility] [place] [facility] [address] [place] [address] Weston Borja MD [address] [place] [address] documented as of this encounter Visit Diagnoses Not on filedocumented in this encounter Care Teams Team MemberRelationshipSpecialtyStart DateEnd Date Weston Borja MD [address] [place] [address] PCP - GeneralInternal Medicine10/07/22 Weston Borja MD [address] [address] PCP - Human06/01/20documented as of this encounter
--- OUTSIDE RECORDS SUMMARY | 2025-05-18 11:36 | XMS_ITS | Encounter Summary ---
Author Organization [facility] Address [address] [place] [address] Care Team Providers Care Assembly Machine Tender Name Role Phone Weston Borja MD Primary Care Provider [phone] Weston Borja MD Unavailable [phone] Encounter Details DateTypeDepartmentCare Team (Latest Contact Info)Almfmfviptj75/08/2025Travel Social History Tobacco UseTypesPacks/DayYears UsedDateSmoking Tobacco: NeverSmokeless Tobacco: NeverAlcohol UseStandard Drinks/WeekCommentsNot Currently0 (1 standard drink = 0.6 oz pure alcohol)caffeine: yesPHQ-2AnswerDate RecordedPatient Health Questionnaire-2 Ioljg558Sex and Gender InformationValueDate RecordedSex Assigned at XnrjcPqrg14/11/2023 10:51 AM EDTLegal UjqPxdq5808/13/2022 7:11 PM EDT Gender LdqcsbmkTenn29/11/2023 10:51 AM EDTSexual OrientationNot on file documented as of this encounter Plan of Treatment DateTypeDepartmentCare Team (Latest Contact Info)Ukybossczoo63/29/2025 2:30 PM ESTOffice Visit [facility] [place] [facility] [address] [place] [address] Lindsay Robledo MD [address] [place] [id number] 05/29/2025 4:00 PM ESTOffice Visit [facility] [place] [facility] [address] [place] [address] Weston Borja MD [address] [place] [address] 08/07/2025 2:30 PM EDTOffice Visit [facility] [place] [facility] [address] [place] [address] Weston Borja MD [address] [place] [address] documented as of this encounter Visit Diagnoses Not on filedocumented in this encounter Care Teams Team MemberRelationshipSpecialtyStart DateEnd Date Weston Borja MD [address] [place] [address] PCP - GeneralInternal Medicine10/07/22 Weston Borja MD [address] [place] [address] PCP - [employer]1documented as of this encounter
--- OUTSIDE RECORDS SUMMARY | 2025-05-18 11:36 | XMS_ITS | Encounter Summary ---
Author Organization [facility] Address [address] [place] [address] Care Team Providers Care Verifying Machine Operator Name Role Phone Weston Borja MD Primary Care Provider [phone] Weston Borja MD Unavailable [phone] Encounter Details DateTypeDepartmentCare Team (Latest Contact Info)Jfweyuckqwt78/08/2025amboo flowsheet [facility] [place] [facility] [address] [place] [address] Weston Borja MD [address] [place], [place] [address] Social History Tobacco UseTypesPacks/DayYears UsedDateSmoking Tobacco: NeverSmokeless Tobacco: NeverAlcohol UseStandard Drinks/WeekCommentsNot Currently0 (1 standard drink = 0.6 oz pure alcohol)caffeine: yesPHQ-2AnswerDate RecordedPatient Health Questionnaire-2 Raazb416Sex and Gender InformationValueDate RecordedSex Assigned at JnijySobq41/11/2023 10:51 AM EDTLegal PyjWvax7208/13/2022 7:11 PM EDT Gender GkkkqtmvLrrs57/11/2023 10:51 AM EDTSexual OrientationNot on file documented as of this encounter Plan of Treatment DateTypeDepartmentCare Team (Latest Contact Info)Mptewecrnve52/29/2025 2:30 PM ESTOffice Visit [facility] [place] [facility] [address] [place] [address] Lindsay Robledo MD [address] [place] [address] 05/29/2025 4:00 PM ESTOffice Visit [facility] [place] [facility] [address] [place] [address] Weston Borja MD [address] [place] [address] 08/07/2025 2:30 PM EDTOffice Visit [facility] [place] [facility] [address] [place] [address] Weston Borja MD [address] [place] [address] documented as of this encounter Visit Diagnoses Not on filedocumented in this encounter Care Teams Team MemberRelationshipSpecialtyStart DateEnd Date Weston Borja MD [address] [place] [address] PCP - GeneralInternal Medicine10/07/22 Weston Borja MD [address] [place] [address] PCP - [employer]1documented as of this encounter
--- OUTSIDE RECORDS SUMMARY | 2025-05-18 11:36 | XMS_ITS | Clinical Summary ---
Author Organization [facility] Address [address] [place] [address] Phone Care Team Providers Care Pipe Liner Name Role Phone Weston Borja MD Primary Care Provider [phone] Social History Tobacco UseTypesPacks/DayYears UsedDateSmoking Tobacco: Never AssessedSex and Gender InformationValueDate RecordedSex Assigned at BirthNot on fileLegal Sex Male04/25/2022 11:45 PM ESTGender IdentityNot on fileSexual OrientationNot on file Last Filed Vital Signs Vital SignReadingTime TakenCommentsBlood Xfnereco444/7805 2:07 PM EDT Svxcm9855/19/2023 1:56 PM EDTTemperature--Respiratory Rate--Oxygen Saturation-- Inhaled Oxygen Concentration--Jxabwn89.9 kg (196 lb)10/17/2022 1:56 PM EDTHeight 170.2 cm (5' 7 )10/17/2022 1:56 PM EDTBody Mass Index30.705 1:56 PM EDT Plan of Treatment Health MaintenanceDue DateLast DoneCommentsLipid Panel1948Medicare Annual Wellness Visit (AWV)1948Hepatitis C Bgltptjnp29/05/1967DTaP/Tdap/Td Vaccines (1 - Tdap)1970Pneumococcal Vaccine (1 of [...] Team MemberRelationshipSpecialtyStart DateEnd Weston Borja MD [address] [facility] [address] [place] [address] [facility]01/20/23
--- OUTSIDE RECORDS SUMMARY | 2025-05-18 11:37 | XMS_ITS | Clinical Summary ---
Author Organization [facility] Address [address] [place] [address] Care Team Providers Care Farm Implement Mechanic Name Role Phone Zainab Forbes DOKranthi Primary Care Provi gladys Social History Tobacco UseTypesPacks/DayYears UsedDateSmoking Tobacco: Never AssessedSex and Gender InformationValueDate RecordedSex Assigned at BirthNot on fileLegal Sex Male11/25/2016 3:15 PM EDTGender IdentityNot on fileSexual OrientationNot on file Plan of Treatment Health MaintenanceDue DateLast DoneCommentsAnxiety Nmtaflngp06/05/1967Depression Lhywytpvw72/05/1967Hepatitis C Agjglfikr78/05/1967DTaP,Tdap,Td Vaccine (1 - Tdap)1967Diabetes Verqhawar42/05/1994Pneumococcal Vaccine: 50+ (1 of 1 - PCV)1998Shingrix Vaccine (1 of 2)1998RSV Vaccine (1 - 1-dose 75+ series)2023dvance Directive Vbncxhqnto51/01/2025Covid-19 Vaccine ( - 2024-26 season)2025Influenza Vaccine (#1)2025 Insurance Care Teams Team MemberRelationshipSpecialtyStart DateEnd Date Kranthi Lamb Jr., DO [facility] [place] [address] PCP - GeneralInternal Medicine11/25/16
--- OUTSIDE RECORDS SUMMARY | 2025-05-18 11:37 | XMS_ITS | Encounter Summary ---
Author Organization [facility] Address [address] [place] [address] Care Team Providers Care Camelid Fiber Sorter Name Role Phone Weston Borja MD Primary Care Provider [phone] Weston Borja MD Unavailable [phone] Mariajose Mc LPN Unavailable Encounter Details DateTypeDepartmentCare Team (Latest Contact Info)Ghyfknqgxya22/11/2025Patient Outreach [facility] [address] [place] [phone] Mariajose Mc LPN [address] [facility] [address] [place] [address] Social History Tobacco UseTypesPacks/DayYears UsedDateSmoking Tobacco: NeverSmokeless Tobacco: NeverAlcohol UseStandard Drinks/WeekCommentsNot Currently0 (1 standard drink = 0.6 oz pure alcohol)caffeine: yesPHQ-2AnswerDate RecordedPatient Health Questionnaire-2 Lgmnb464Sex and Gender InformationValueDate RecordedSex Assigned at NwpbbLfzu04/11/2023 10:51 AM EDTLegal TgnYpdz2708/13/2022 7:11 PM EDT Gender VigycttcVedg00/11/2023 10:51 AM EDTSexual OrientationNot on file documented as of this encounter Progress Notes * Mariajose Mc LPN - 05/11/2025 3:16 PM EST Records in chart. CODI complete and medications reconciled with pt. Pt states B/P still up and down but not as high as it was. After took meds this a.m he says it was 175 then after taking coreg it was down to 110. Pt shares he feels ok but feels B/P still is not controlled. Pt has appt scheduled 05/29 and does not wish to schedule sooner at this time. Flowsheet Row Patient Outreach from 05/11/2025 in [facility] with Mariajose Mc LPN Hospital Information ED, Hospital or Mcfp Facility Discharge? ED Patient has been contacted within 2 days of being seen in the ED Yes Diagnosis Hypertension Discharge Date 05/09/25 Discharged To: Home Setting Discharge Hospital [facility] Engagement Call Start Time 1516 Admission Date 05/09/25 Medications Discharge medications reviewed and reconciled from hospital? Yes Is the patient having any side effects they believe may be caused by any medication additions or changes? No Does the patient have all medications ordered at discharge? Yes Is the patient taking all medications as directed (includes completed medication regime)? Yes Appointments Does the patient have a primary care provider? Yes Does the patient have any upcoming specialty appointments? No Self Management Does patient have home health? no Patient Teaching Does the patient have access to their discharge instructions? Yes What is the patient's perception of their health status since discharge? Improving Is the patient/caregiver able to teach back the hierarchy of who to call/visit for symptoms/problems? PCP, Specialist, Home Health nurse, Urgent Care, ED, 911 Yes Wrap Up Wrap Up Additional Comments presents to ER d/t hypertension. No chest pain , headache or dyspnea. Took his usual BP medication at home and his BP remained elevated and so her came inpatient asymptomatic, exam WNL. CBC, BMP and troponin WNL. Given one time dose of hydralazine and BP decreased to 155/72. Labs and UA Call End Time 1556 I discuss CCM with pt and pt would like to enroll. 05/11/2025, 3:43 PM - Mariajose Mc LPN- Patient gives verbal consent to be enrolled in CCM Program and understands there could be a bill for this service documented in this encounter Plan of Treatment DateTypeDepartmentCare Team (Latest Contact Info)Iarpvhcosel77/29/2025 2:30 PM ESTOffice Visit [facility] [place] [facility] [address] [place] [address] Lindsay Robledo MD [address] [place] [address] 05/29/2025 4:00 PM ESTOffice Visit [facility] [place] [facility] [address] [place] [address] Weston Borja MD [address] [place] [address] 08/07/2025 2:30 PM EDTOffice Visit [facility] [place] [facility] [address] [place] [address] Weston Borja MD [address] [place] [address] documented as of this encounter Visit Diagnoses Diagnosis Hypertension, unspecified type- Primary 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
--- OUTSIDE RECORDS SUMMARY | 2025-05-18 11:37 | XMS_ITS | Encounter Summary ---
Author Organization [facility] Address [address] [place] [address] Care Team Providers Care Assembly Line Upholsterer Name Role Phone Weston Borja MD Primary Care Provider [phone] Weston Borja MD Unavailable [phone] Mariajose Mc LPN Unavailable Encounter Details DateTypeDepartmentCare Team (Latest Contact Info)Lgefxmsipap26/15/2025Telephone [facility] [place] [facility] [address] [place] [phone] Weston Borja MD [address] [facility] [address] [place] [address] Social History Tobacco UseTypesPacks/DayYears UsedDateSmoking Tobacco: NeverSmokeless Tobacco: NeverAlcohol UseStandard Drinks/WeekCommentsNot Currently0 (1 standard drink = 0.6 oz pure alcohol)caffeine: yesPHQ-2AnswerDate RecordedPatient Health Questionnaire-2 [id number] and Gender InformationValueDate RecordedSex Assigned at IaqcwErlb81/11/2023 10:51 AM EDTLegal ZmiNbcm8608/13/2022 7:11 PM EDT Gender LjctugonWphd97/11/2023 10:51 AM EDTSexual OrientationNot on file documented as of this encounter Miscellaneous Notes * Telephone Encounter - TRISHA ELIZALDE - 05/15/2025 2:36 PM EST Unable to LM, phone just rang * Telephone Encounter - Weston Borja MD - 05/15/2025 1:58 PM EST New Rx was sent. * Telephone Encounter - TRISHA ELIZALDE - 05/15/2025 12:07 PM EST Patient called and was upset the cipro was called in for him. He states that he is allergic to thismedication. I did add it to his allergy list. He would like a new antibiotic called in for his UTI documented in this encounter Plan of Treatment DateTypeDepartmentCare Team (Latest Contact Info)Lhsyrsczyrx50/29/2025 2:30 PM ESTOffice Visit [facility] [place] [facility] [address] [place] [address] Lindsay Robledo MD [address] [place] [address] 05/29/2025 4:00 PM ESTOffice Visit [facility] [place] [facility] [address] [place] [address] Weston Borja MD [address] [place] [address] 08/07/2025 2:30 PM EDTOffice Visit [facility] [place] [facility] [address] [place] [address] Weston Borja MD [address] [place] [address] documented as of this encounter Visit Diagnoses Diagnosis Acute cystitis without hematuria- Primary documented in this encounter Care Teams Team MemberRelationshipSpecialtyStart DateEnd Date Weston Borja MD [address] [place] [address] PCP - GeneralInternal Medicine10/07/22 Weston Borja MD [address] [place] [address] PCP - Human06/01/20 Mariajose Mc LPN [address] [address] 05/11/25documented as of this encounter
--- OUTSIDE RECORDS SUMMARY | 2025-05-18 11:37 | XMS_ITS | Encounter Summary ---
Author Organization [facility] Address [address] [place] [address] Care Team Providers Care Sole Inker Name Role Phone Weston Borja MD Primary Care Provider Weston Borja MD Unavailable [phone] Mariajose Mc LPN Unavailable Encounter Details DateTypeDepartmentCare Team (Latest Contact Info)Koxpzqflkpd45/11/2025bstract [facility] [address] [place] [phone] Mariajose Mc LPN [address] [place] [address] Social History Tobacco UseTypesPacks/DayYears UsedDateSmoking Tobacco: NeverSmokeless Tobacco: NeverAlcohol UseStandard Drinks/WeekCommentsNot Currently0 (1 standard drink = 0.6 oz pure alcohol)caffeine: yesPHQ-2AnswerDate RecordedPatient Health Questionnaire-2 [id number] and Gender InformationValueDate RecordedSex Assigned at YtphaJexj12/11/2023 10:51 AM EDTLegal RnsFchu7608/13/2022 7:11 PM EDT Gender QrdqwufxApdv69/11/2023 10:51 AM EDTSexual OrientationNot on file documented as of this encounter Plan of Treatment DateTypeDepartmentCare Team (Latest Contact Info)Rtmjdfukgbx99/29/2025 2:30 PM ESTOffice Visit [facility] [place] [facility] [address] [place] [address] Lindsay Robledo MD [address] [place] [address] 05/29/2025 4:00 PM ESTOffice Visit [facility] [place] [facility] [address] [place] [address] Weston Borja MD [address] [place] [address] 08/07/2025 2:30 PM EDTOffice Visit [facility] [place] [facility] [address] [place] [phone] Weston Borja MD [address] [place] [address] documented as of this encounter Visit Diagnoses Not on filedocumented in this encounter Care Teams Team MemberRelationshipSpecialtyStart DateEnd Date Weston Borja MD [address] [place] [address] PCP - GeneralInternal Medicine10/07/22 Weston Borja MD [address] [place] [address] PCP - Human06/01/20 Mariajose Mc LPN [address] [place] [address] 05/11/25documented as of this encounter
--- OUTSIDE RECORDS SUMMARY | 2025-05-18 11:37 | XMS_ITS | Encounter Summary ---
Author Organization [facility] Address [address] [place] [address] Care Team Providers Care Track Inspector Name Role Phone Weston Borja MD Primary Care Provider [phone] Weston Borja MD Unavailable [phone] Mariajose Mc LPN Unavailable Encounter Details DateTypeDepartmentCare Team (Latest Contact Info)Kdfvvmmcswt20/11/2025Patient Outreach [facility] [address] [place] [phone] Mariajose Mc LPN [address] [facility] [address] [place] [address] Social History Tobacco UseTypesPacks/DayYears UsedDateSmoking Tobacco: NeverSmokeless Tobacco: NeverAlcohol UseStandard Drinks/WeekCommentsNot Currently0 (1 standard drink = 0.6 oz pure alcohol)caffeine: yesPHQ-2AnswerDate RecordedPatient Health Questionnaire-2 [id number] and Gender InformationValueDate RecordedSex Assigned at LzvgbKuid61/11/2023 10:51 AM EDTLegal HhpEuhu4308/13/2022 7:11 PM EDT Gender HiuiknviWpro27/11/2023 10:51 AM EDTSexual OrientationNot on file documented as of this encounter Progress Notes * Mariajose Mc LPN - 05/11/2025 3:43 PM EST Spoke to pt about CCM during ER CODI. Pt feels CCM would be very beneficial to him at this time.05/11/2025, 3:43 PM - Mariajose Mc LPN- Patient gives verbal consent to be enrolled in CCM Program and understands there could be a bill for this service. Pt shares he has been struggling with his B/P. He monitors this daily. Pt states that sometimes its good and then for no apparent reason to him it will just be high. He shares that today after taking his medication it went from 170 s-110 and this made him nervous as well. He states that 110 is low for him and he was shocked it made such a jump. Pt states PCP recently changed how he takes his clonidine and he hopes that this maybe changes things. He has follow up appt set for 05/29 for B/P check up. Pt shares he has got a new B/P machine and a family member is coming to set it up tomorrow. He shares it may be possible his readings are fluctuating so much d/t B/P cuff being older. He hopes to have an accurate set of readings for his appt withPCP. We discuss Care plan and pt is agreeable to plan set up. He shares he takes his medications as prescribed most of the time. He shares that this a.m when B/P dropped he was nervous to take clonidine and did not take it. Pt will keep regular check ups with PCP and watch things that ,may cause his B/P to rise. Pt does not know what triggers it at this time. He shares he lives alone and does nothave very many stressors. He shares the stress he does have is if his B/P is high. I make sure pt has my direct number and encourage pt to call me if he has any needs or concerns. * Mariajose Mc LPN - 05/11/2025 3:43 PM EST Images from the original note were not included. 05/11/2025 Frankie De Anda 1950 [address] [facility] [address] Problem: Multiple Chronic conditions/CCM participation Goal: Pt will utilize the phone monitoring to communicate changes and to address any questions/concerns regarding health and /or healthcare. Intervention: Encourage pt to communicate any changes regarding healthcare , Problem: Blood Pressure Monitoring Goal: Establish Regular Follow-Ups with PCP Intervention: Determine patient's next PCP visit Intervention: Discuss schedule for PCP visits with patient , and Problem: Patient is Hypertensive Goal: Remain At/Below Target Blood Pressure Intervention: Discuss steps to manage BP with patient * Mariajose Mc LPN - 05/11/2025 3:43 PM EST Care plan printed to be mailed to pt. documented in this encounter Plan of Treatment DateTypeDepartmentCare Team (Latest Contact Info)Cbhelwkfwob51/29/2025 2:30 PM ESTOffice Visit [facility] [place] [facility] [address] [place] [address] Lindsya Robledo MD [address] [place] [address] 05/29/2025 4:00 PM ESTOffice Visit [facility] [place] [facility] [address] [place] [address] Weston Borja MD [address] [place] [address] 08/07/2025 2:30 PM EDTOffice Visit [facility] [place] [facility] [address] [place] [address] Weston Borja MD [address] [place] [address] documented as of this encounter Visit Diagnoses Diagnosis Hypertension, unspecified type- Primary 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
--- OUTSIDE RECORDS SUMMARY | 2025-05-18 11:37 | XMS_ITS | Clinical Summary ---
Author Organization [facility] Address [address] [place] [address] Care Team Providers Care Continuity Person Name Role Phone Weston Borja MD Primary Care Provider [phone] Weston Borja MD Unavailable [phone] Mariajose Mc LPN Unavailable Allergies Active AllergyReactionsCriticalityNoted DraqGxkwkoijFwkzzvcomrnyxFusgl75/07/2024 Increased neuropathy Penicillin V012/22/2022 Other Reaction(s): Unknown FwvdhdvahyyUtggc79/19/2023 Other Reaction(s): Weakness - general Medications MedicationSigDispense QuantityRefillsLast FilledStart DateEnd DateStatus tamsulosin (Flomax) 0.4 MG 24 hr capsule Indications:BPH with urinary obstructionTAKE 1 CAPSULE BY MOUTH EVERY DAY 90 capsule 3055Active pregabalin (Lyrica) 100 MG capsule Indications:Diabetic peripheral neuropathy (HCC)Take 1 capsule (100 mg) by mouth in the morning and 1 capsule (100 mg) before bedtime. 60 capsule 507/28/493579/6Active cloNIDine (Catapres) 0.1 MG tablet Indications:Essential (primary) hypertensionTake 1 tablet (0.1 mg) by mouth every 8 (eight) hours if needed for high blood pressure (Take if SBP is > 175) 60 tablet 509/15/066619/14/6Active Additional Information Patient taking differently:0.1 mg Oral2 times daily, Morning, Bedtime, Reported on 05/11/2025 fluticasone (Flonase) 50 MCG/ACT nasal spray Indications:Lesion of nasal cavitySPRAY 2 SPRAYS INTO EACH NOSTRIL EVERY DAY 16 mL 5Active loratadine (Claritin) 10 MG tablet Indications:Dysfunction of right eustachian tubeTAKE 1 TABLET (10 MG) BY MOUTH DAILY. 90 tablet 5Active Additional Information Patient not taking.Reported on 05/11/2025 triamcinolone (Kenalog) 0.5 % cream Indications:Eczema, unspecified typeApply topically in the morning and before bedtime. 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, without long-term current use of insulin, unspecified laterality (HCC)TAKE 1 TABLET EVERY DAY 100 tablet 5Active rosuvastatin (Crestor) 5 MG tablet Indications:Pure hypercholesterolemia, unspecifiedTAKE 1 TABLET AT BEDTIME 100 tablet 5Active carvedilol (Coreg) 12.5 MG tablet Indications:Essential (primary) hypertensionTAKE 1 TABLET TWICE DAILY 200 tablet 5Active Additional Information Patient taking differently: 25 mgOral 2 times daily, Morning, Bedtime, Reported on 05/11/2025 hydrocortisone (West-Yaakov) 0.2 % cream APPLY TOPICALLY IN THE MORNING AND BEFORE BEDTIME.5Active aspirin 81 MG EC tablet Take 81 mg by mouth DailyActive Onotmqtriyn-Gegwpeco-Bhurptdxg 1-0.5-0.075 % solution Indications:Age-related nuclear cataract of both eyesAdminister 1 drop into affected eye(s) in the morning and 1 drop at noon and 1 drop in the evening and 1 drop before bedtime. 10 mL 5Active Additional Information Patient not taking.Reported on 05/11/2025 ciprofloxacin (Cipro) 250 MG tablet Indications:Acute cystitis without hematuriaTake 1 tablet (250 mg) by mouth in the morning and 1 tablet (250 mg) before bedtime. Do all this for 10 days. 10 tablet 5Active Additional Information Patient not taking.Reason: Side effects, Reported on 05/11/2025 sulfamethoxazole-trimethoprim (Bactrim DS) 800-160 MG per tablet Indications:Acute cystitis without hematuriaTake 1 tablet by mouth in the morning and 1 tablet before bedtime. Do all this for 5 days. 10 tablet 512/5Active Active Problems ProblemNoted DateDiagnosed DateIntraoperative floppy iris syndrome (IFIS) 05/03/2025arotid stenosis, right03/29/2025Degenerative disc disease, lumbar 12/10/2023ge-related nuclear cataract of both eyes04/06/2023PH with urinary flmukyzhyeq39/19/2023ardiac gczxtl3901/17/2023Elevated PSA01/17/2023ross miemsqisn18/19/9431Jlumoyokw15/19/2023Urinary abexrwc9301/17/2023Incomplete bladder evlwgzoe75/19/2023Inferior myocardial zzaqtyhslh03/19/2023Irreducible left inguinal wlwhwy8501/17/2023Idiopathic progressive /19/2023 Mcajcmom67/19/2023Urethral iesspvrhg36/19/2023Weak urine ksnkol5901/17/2023MI 33.0-33.9,adult01/17/20237150Vllrhrc13/19/2023AD (coronary artery disease) 01/17/20239914Uovxdjftbnsy98/19/2023ERD (gastroesophageal reflux disease)01/17/2023 Elevated ittljyuunib15/19/0555Bgwrfciv49/19/2023cute maxillary sinusitis 12/22/2022rthritis of left hip12/22/2022lass 1 zmytfcp6312/22/2022oronary izhunhbhmaamnty23/24/2023iabetic peripheral nwruhsoaqo53/24/2023Essential (primary) sflasntnxywu18/24/2023astroesophageal reflux nqjrryl4112/22/2022 Twykhctewzfcavnijvie53/24/2023Lesion of nasal sxfkil4712/22/2022OAB (overactive bladder)12/22/2022Osteoarthritis of knee12/22/2022lantar wart of left foot 12/22/2022Right sided qmlbzihc24/24/2023Right-sided carotid artery disease 12/22/2022Type 2 diabetes mellitus with vynyhbhsguz52/24/2023 Resolved Problems ProblemNoted DateDiagnosed DateResolved DateType 2 diabetes mellitus without xqvjegwsmnfoe44 Encounters DateTypeDepartmentCare QvfuKzollqvudjc78/15/2025Telephone [facility] [facility] [address] [place] [address] Weston Borja MD 05/11/2025Patient Outreach [facility] [address] [place] [address] [facility] 05/11/2025Patient Outreach [facility] [address] [place] [address] [facility] 05/11/2025[facility] [address] [place] [address] [facility] 05/09/2025Telephone [facility] [place] [facility] [address] [place] [address] Weston Borja MD 05/08/2025 2:00 PM ESTOffice Visit [facility] [place] [facility] [address] [place] [address] Weston Borja MD Acute cystitis without hematuria (Primary Dx); Idiopathic progressive neuropathy; Essential (primary) ilvcremuflon42/08/2025amboo flowsheet [facility] [place] [facility] [address] [place] [address] Weston Borja MD 05/08/20254478Wjdziv23/03/2025 1:30 PM ESTOffice Visit [facility] [address] [place] [address] Joaquín Ghosh, DO Age-related nuclear cataract of both eyes (Primary Dx); Intraoperative floppy iris syndrome (IFIS)05/03/2025amboo flowsheet [facility] [address] [place] [address] Joaquín Ghosh, 05/03/20259345Kuzrqe87/31/2025Patient Outreach [facility] [address] [place] [address] Mariajose Mc, [facility] 03/30/2025bstract [facility] [address] [place] [address] Mariajose Mc [facility] 03/29/2025 1:30 PM EDTOffice Visit [facility] [place] [facility] [address] [facility] [address] [place] [address] Lindsay Estrada MD OME (otitis media with effusion), right (Primary Dx); Chronic dysfunction of right eustachian tube; CSF otorrhea; Hypertension, unspecified type; Nasal polyp03/29/2025amboo flowsheet [facility] [place] [facility] [address] [facility] [address] [place] [address] Lindsay Estrada MD 03/29/20251786Unnzkn59/10/2025linisync Result Encounter [facility] External Department Unsolicited Provider, Generic External Data 03/10/2025linisync Result Encounter [facility]OM[facility] External Department Unsolicited Provider, Generic External Data 03/09/2025Refill [facility] [address] [facility] [address] [place] [address] Weston Borja MD 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, without long-term current use of insulin, unspecified laterality (HCC); Pure hypercholesterolemia, unspecified; Essential (primary) ffzaqieefozw58/03/2025Refill [facility] [place] [place] [address] Weston Borja MD Eczema, unspecified type03/03/2025Refill [facility] [address] [place] [address] Tita Guzman PA Dysfunction of right eustachian tube03/02/2025Telephone [facility] [address] [place] [address] Weston Borja MD 02/21/2025 2:00 PM EDTOffice Visit [facility] [place] [facility] [address] [place] [phone] Lindsay Estrada MD OME (otitis media with effusion), right (Primary Dx); Chronic dysfunction of right eustachian tube; CSF otorrhea; Cholesteatoma of external ear, right02/21/2025Refill [facility] [place] [facility] [address] [place] [address] Weston Borja MD Lesion of nasal desjfq0202/21/2025amboo flowsheet [facility] [place] [facility] [address] [place] [address] Lindsay Estrada MD 02/21/2025Travelfrom Last 3 Months Family History Medical HistoryRelationNameCommentsHeart diseaseFatherHeart failureFatherHeart diseaseMotherHyperlipidemiaMotherHypertensionMotherMelanomaSisterRelationName StatusCommentsFatherDeceasedMotherAliveOtherSpouseAliveSisterDeceased Social History Tobacco UseTypesPacks/DayYears UsedDateSmoking Tobacco: NeverSmokeless Tobacco: Never Tobacco Cessation:Counseling Given: Yes Alcohol UseStandard Drinks/WeekCommentsNot Currently0 (1 standard drink = 0.6 oz pure alcohol)caffeine: yesPHQ-2AnswerDate RecordedPatient Health Questionnaire-2 Ynqwd189Sex and Gender InformationValueDate RecordedSex Assigned at RorkuHrfi84/11/2023 10:51 AM EDTLegal DrpTuzs8008/13/2022 7:11 PM EDTGender QwkexsgjMyvr38/11/2023 10:51 AM EDTSexual OrientationNot on file Last Filed Vital Signs Vital SignReadingTime TakenCommentsBlood Mhtjcwgf985/7605/08/2025 2:01 PM EST Vmyuh743905/08/2025 2:01 PM HCNQnnpwhowpwi34.8 ??C (98.2 ??F)06/29/2024 3:01 PM ESTRespiratory Kdgk068501/12/2025 2:02 PM EDTOxygen Gyapuijxav71%05/08/2025 2:01 PM ESTInhaled Oxygen Concentration--Gszlov36 kg (205 lb)05/08/2025 2:01 PM EST Rfzite843.1 cm (5' 5 )05/08/2025 2:01 PM ESTBody Mass Index34.11107/09/2024 2:01 PM EST Plan of Treatment DateTypeDepartmentCare Team (Latest Contact Info)Rcwnsstwjqi43/29/2025 2:30 PM ESTOffice Visit [facility] [place] [facility] [address] [facility] [address] [place] [address] Lindsay Estrada MD [address] [facility] [[email or web address] [address] [place] [address] 05/29/2025 4:00 PM ESTOffice Visit [facility] [place] [facility] [address] [facility] [address] [place] [address] Weston Borja MD [address] [facility] [[email or web address] [address] [place] [address] 08/07/2025 2:30 PM EDTOffice Visit [facility] [place] [facility] [address] [facility] [address] [place] [address] Weston Borja MD [address] [facility] [[email or web address] [address] [place] [address] Health MaintenanceDue DateLast DoneCommentsPneumococcal Vaccine: 65+ Years (1 of 2 - PCV)1967Diabetes: Urine Protein Yrkfcvzst73OVID-19 Vaccine (2024- season), 08/21/2020, 07/30/2020 Influenza Vaccine (#1)2025Diabetes: Hemoglobin A1C, 10/17/2024, 05/16/2024, Additional history existsMedicare Annual Wellness (AWV) 6010/17/2024, 05/16/2024, 3Diabetes: Retinopathy Screening 6107/04/2024, 05/03/2025, 05/03/2025, Additional history exists Colorectal Cancer ScreeningDiscontinuedFIT-XNKJbobydzmdtbv17/26/2023T ColonographyDiscontinuedColonoscopyDiscontinuedFITDiscontinuedFOBTDiscontinued SigmoidoscopyDiscontinued Procedures Procedure NamePriorityDate/TimeAssociated DiagnosisCommentsPOCT URINALYSIS GNRUBPQTIqarymo47/08/2025 3:08 PM EST Acute cystitis without hematuria IOL BIOMETRY - OU - BOTH WJBZUzgbbyg09/03/2025 2:10 PM EST Age-related nuclear cataract of both eyes CT INTERNAL AUDITORY CANALS/POSTERIOR FOSSA WO IV BIXXDFKL92/10/2025 5:[address] INTERNAL AUDITORY CANALS/POSTERIOR FOSSA W AND WO IV CPMZUKTD35/10/2025 5:08 PM EDT POCT GLYCATED HEMOGLOBIN, UOGVBHzcvvuh94/15/2025 4:29 PM EDT 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 COLON CANCER FCUNDFNnewygn06/26/2023 8:50 PM EST Screening for colorectal cancer from Last 3 Months or Most Recently Relevant to Health Maintenance Results * POCT Urinalysis dipstick (05/08/2025 3:08 PM EST)ComponentValueRef RangeTest MethodAnalysis TimePerformed AtPathologist SignatureGlucose, UANegative Negative - 1999(110) ++++ mg/dLBilirubin, UANegativeNegative - 4(70) +++ mg/dL Ketones, UANegativeNegative - 160(16) ++++ mg/dLSpec Grav, UA1.0251 - 1.03 Blood, UAPositiveNegative - 50 Gabreil/mcLComment:tracepH, UA5.05 - 9Protein, UA TraceNegative - 2000(20) ++++ mg/dLUrobilinogen, UA0.20.2 - 12 mg/dL Leukocytes, UAFewNegative - 500+++ Luzma/mcLNitrite, UANegativeNegative - PositiveSpecimen (Source)Anatomical Location / LateralityCollection Method / VolumeCollection TimeReceived MblhIeorx91/08/2025 3:08 PM EST Narrative Authorizing ProviderResult TypeResult StatusWeston Borja MDPOINT OF CARE TEST ENTER/EDIT ORDERABLESFinal Result * IOL Biometry - OU - Both Eyes (CPT 64333) (05/03/2025 2:10 PM EST)Anatomical RegionLateralityModalityHeadOtherSpecimen (Source)Anatomical Location [...] PM EDT Addenda Addendum by Radiology, Radiologist, on 03/23/2025 2:02 PM EDT ?[facility] ?[address] ? [place] [address] ? CT Scan Report ?Cancelled ? Patient: MISSIMI,LUCIE G ? MR#: [id number] ?? : 1950 ? Acct:[id number] ?? Age/Sex: 74 / M ? ADM Date: 10/10/25 ?? Loc: CT ? Attending : Lindsay Estrada M.D. ? Ordering Physician: ?? Date of Service: ?? Procedure(s): ?? Accession Number(s): ? cc: ? [facility] ? [address] ? [place] [address] ? Patient Name: ?? LUCIE DE ANDA ? MRN: [facility]:[id number] ? date: 1950 ?Sex: M ?? Assigned Patient Location: CT ?? Current Patient Location: CT ?? Accession/Order Number: [id number] ?? Exam Date: 03/10/2025 ??14:46 ?Report Date: [...] ?Todd Hartman M.D. ? Signed By: ? DD/ 1708 ? TD/TT: ? Leather Scrubber: Narrative 03/10/2025 5:11 PM EDT [facility] ?[address] ? [place] [address] ? CT Scan Report ? Signed ? Patient: LUCIE DE ANDA ?MR#: [id number] ?? : 1950 ?Acct:[id number] ?? Age/Sex: 74 / M ?ADM Date: 03/10/25 ?? Loc: CT ? Attending Dr: Lindsay Estrada M.D. ? Ordering Physician: Lindsay Estrada M.D. ?? Date of Service: 03/10/25 ?? Procedure(s): CT int auditory canals wo/w ?? Accession Number(s): [id number] ? cc: WESTON BORJA ? [facility] ? [address] ? [place] [address] ? Patient Name: ?? LUCIE DE ANDA ? MRN: [id number] ? date: 1950 ?Sex: M ?? Assigned Patient Location: CT ?? Current Patient Location: CT ?? Accession/Order Number: [id number] ?? Exam Date: 03/10/2025 ??14:46 ?Report Date: [...] M.D. ??03/10/2025 5:08 PM ? Dictation Location: [place] [address] ? Electronically authenticated by: [id number] ??Y ?? Date: 03/10/2025 ??17:08 ? Dictated By: ?Todd Hartman M.D. ? Signed By: ?03/10/25 1711 ? DD/ 1708 ? TD/TT: ? Leather Scrubber: Procedure Note Radiology, Radiologist, - 03/23/[address] [place] [id number] Scan Report Signed Patient: LUCIE DE ANDA R#: [id number] : 9Acct:[id number] Age/Sex: 74 / MADM Date: 03/10/25 Loc: CT Attending Dr: Lindsay Estrada M.D. Ordering Physician: Lindsay Estrada M.D. Date of Service: 03/10/25 Procedure(s): CT int auditory canals wo/w Accession Number(s): [id number] cc: WESTON BORJA The [address] [address] Patient Name: LUCIE DE ANDA MRN: [id number] date: 1950 Sex: M Assigned Patient Location: CT Current Patient Location: CT Accession/Order Number: [id number] Exam Date: 03/10/2025 14:46 Report Date: 03/10/2025 [...] Hartman M.D. 03/10/2025 5:08 PM Dictation Location: [place] [address] Electronically authenticated by: [id number] Y Date: 7:08 Dictated By: Todd Hartman M.D. Signed By:03/10/251710 DD/ 07 TD/TT: Leather Scrubber: Authorizing ProviderResult TypeResult StatusGeneric External Data ProviderIMG CT PROCEDURESEdited Result - Final * CT internal auditory canals/posterior fossa wo IV contrast (03/10/2025 5:08 PM EDT)Anatomical RegionLateralityModalityHead, NeckComputed TomographySpecimen (Source)Anatomical Location / LateralityCollection Method / VolumeCollection TimeReceived Time03/10/2025 5:08 PM EDT Narrative 03/23/2025 1:51 PM EDT [facility] ?[address] ? [place] [address] ? CT Scan Report ? Signed ? Patient: LUCIE DE ANDA ?MR#: [id number] ?? : 1950 ?Acct:[id number] ?? Age/Sex: 74 / M ?ADM Date: 03/10/25 ?? Loc: CT ? Attending Dr: Lindsay Estrada M.D. ? Ordering Physician: Lindsay Estrada M.D. ?? Date of Service: 03/10/25 ?? Procedure(s): CT int auditory canals w/o con ?? Accession Number(s): [id number] ? cc: WESTON BORJA ? [facility] ? [address] ? [place] [address] ? Patient Name: ?? LUCIE DE ANDA ? MRN: [id number] ? date: 1950 ?Sex: M ?? Assigned Patient Location: CT ?? Current Patient Location: CT ?? Accession/Order Number: [id number] ?? Exam Date: 03/10/2025 ??14:30 ?Report Date: 03/10/2025 ??17:08 ? At the request of: ?? LINDSAY ??NATALIE ??MD ? Procedure: ??CT int auditory canals w/o [...] M.D. ??03/10/2025 5:08 PM ? Dictation Location: [place] [address] ? Electronically authenticated by: [id number] ??Y ?? Date: 03/10/2025 ??17:08 ? Dictated By: ?Todd Hartman M.D. ? Signed By: ?03/23/25 1351 ? DD/ 1708 ? TD/TT: ? Leather Scrubber: Procedure Note Radiology, Radiologist, - 03/23/2025 [place] [address] CT Scan Report Signed Patient: LUCIE DE ANDA R#: [id number] : 9Acct:[id number] Age/Sex: 74 / MADM Date: 03/10/25 Loc: CT Attending Dr: iLndsay Estrada M.D. Ordering Physician: Lindsay Estrada M.D. Date of Service: 03/10/25 Procedure(s): CT int auditory canals w/o con Accession Number(s): [id number] cc: WESTON BORJA The [address] [address] Patient Name: LUCIE DE ANDA MRN: [id number] date: 1950 Sex: M Assigned Patient Location: CT Current Patient Location: CT Accession/Order Number: [id number] Exam Date: 03/10/2025 14:30 Report Date: 03/10/2025 [...] Hartman M.D. 03/10/2025 5:08 PM Dictation Location: [place] [address] Electronically authenticated by: [id number] Y Date: :08 Dictated By: Todd Hartman M.D. Signed By:03/23/25 1351 DD/ 1708 TD/TT: Leather Scrubber: Authorizing ProviderResult TypeResult StatusGeneric External Data ProviderIMG CT PROCEDURESFinal Result * POCT Glycated hemoglobin, total (02/13/2025 4:29 PM EDT)ComponentValueRef RangeTest MethodAnalysis TimePerformed AtPathologist SignatureHemoglobin A1C 6.6Specimen (Source)Anatomical Location / LateralityCollection Method / Volume Collection TimeReceived CqzaWovjo33/15/2025 4:29 PM EDT Narrative Authorizing ProviderResult TypeResult StatusDanimichele Borja [facility]ENTEROINT OF CARE TEST ENTER/EDIT ORDERABLESFinal Result * Microalbumin / creatinine, urine ratio (07/17/2023 11:02 AM EST)ComponentValue Ref RangeTest MethodAnalysis TimePerformed AtPathologist SignatureCREATININE, RANDOM RCKIE6857 - 320 mg/dLQUESTALBUMIN, URINE0.2See Note: mg/dLQUESTComment: Reference [...] specimen obtained by clean catch procedure / Sbztfuy5607/17/2023 11:02 AM EST07/17/2023 11:02 AM EST Narrative Resulting Agency Comment Performing Organization Information ?Site ID: [id number] ?Name: [facility] ?Address: [address] [place] [address], [address] [place] [id number] ?Director: Sagar Pathak MD Authorizing ProviderResult TypeResult StatusDalillian Borja MDLAB URINE ORDERABLESFinal ResultPerforming OrganizationAddressCity/State/ZIP CodePhone Number [facility]ST * Cologuard?? colon cancer screening (05/26/2023 8:50 PM EST)ComponentValueRef RangeTest MethodAnalysis TimePerformed AtPathologist SignatureNONINV COLON CA DNA+OCC BLD SCRN STL-KOMPdlvlzmbWruseorh87/02/2024 5:58 PM [facility] (CLIA #:[id number])Comment: NEGATIVE TEST RESULT. A negative Cologuard result [...] screened with both Cologuard and colonoscopy. (Divina Schmidt al, N Engl J Med 2014;370(14):4695-8361) The normal value (reference range) for this assay is negative. COLOGUARD RE-SCREENING RECOMMENDATION: Periodic colorectal cancer screening is an important part ofpreventive healthcare for asymptomatic individuals at average risk for colorectal cancer. ??Following a negative Cologuard result, the [place] [employer] Society and U.S. Multi-Society Task Force screening guidelines recommend a Cologuard re-screening interval of 3 years. References: [place] [employer] Guideline for Colorectal Cancer Screening: https://www.cancer.or g/cancer/imfqd-enaovn-vkomjg/ensjbqlev-zjijaiezq-xjffonp/acs-recommendations.htm rachele; Jasper PAGE, Lloyd WALDROP, Shandra HEBERT, Colorectal Cancer Screening: Recommendations for Physicians and Patients from the U.S. Multi-Society Task Force on Colorectal Cancer Screening , Am J Gastroenterology 2017; 112:1580-7788. TEST DESCRIPTION: Composite algorithmic analysis of stool [...] screened with both Cologuard and colonoscopy. (Divina Schmidt al, N Engl J Med 2014;370(14):5774-9014.) Cologuard may produce a false negative or false positive result (no colorectal cancer or precancerous polyp present at colonoscopy follow up). A negative Cologuard test result does not guarantee the absence of CRC or advanced adenoma (pre-cancer). The current Cologuard screening interval is every 3 years. ([place] [employer] and U.S. Multi-Society Task Force). Cologuard performance data in a 10,000 patient pivotal study using colonoscopy as the reference method can be accessed at the following location: www.Par[employer]ructure/results. Additional description of the Cologuard test process, warnings and precautions can be found at www.cologuard.com. Specimen (Source)Anatomical Location / LateralityCollection Method / Volume Collection TimeReceived TimeStool specimen (specimen)05/26/2023 8:50 PM EST 05/28/2023 9:39 AM EST Narrative Authorizing ProviderResult TypeResult StatusDanimichele [facility] ORDERABLESFinal ResultPerforming OrganizationAddressCity/State/ZIP CodePhone Number .[facility] [facility] (CLIA #:[id number]) [address] [place] [address], [place] [phone] [facility] (CLIA #:[id number]) [address] [place] [address] from Last 3 Months or Most Recently Relevant to Health Maintenance Insurance Care Teams Team MemberRelationshipSpecialtyStart DateEnd Weston Borja MD [address] [facility] [[email or web address]] [address] [place] [address] PCP - GeneralInternal Medicine10/07/22 Weston Borja MD [address] [facility] [[email or web address] [address] [place] [address] PCP - Human06/01/20 Mariajose Mc LPN [address] [facility] [[email or web address]] [address] [place] [address] 05/11/25
--- OUTSIDE RECORDS SUMMARY | 2025-05-18 11:37 | XMS_ITS ---
Author Organization [facility] Address [address] [facility] [place] [address] Care Team Providers Care Regulatory Compliance Director Name Role Phone Weston Borja MD Primary Care Provider [phone] Weston Borja MD Unavailable [phone] Mariajose Mc LPN Unavailable Chronic Care Management (CCM) Status:Enrolled (Active) Start date:05/11/2025 Enrollment date:05/11/2025 Overview Please assess for Care Management needs. 05/11/2025, 3:43 PM - Mariajose Mc LPN- Patient gives verbal consent to be enrolled in CCM Program and understands there could be a bill for this service. NameArsenio Mc LPN(Responsible Staff)[phone] Continued Care and Services Coordination
--- OUTSIDE RECORDS SUMMARY | 2025-05-18 11:37 | XMS_ITS ---
Author Organization [facility] Address [address] [place] [address] Care Team Providers Care Crm Functional Analyst Name Role Phone Weston Borja MD Primary Care Provider [phone] Weston Borja MD Unavailable [phone] Mariajose Mc LPN Unavailable Emergency Department Transitional Care Management (TCM) Status:Closed (Closed) Start date:05/10/2025 Enrollment date:05/11/2025 Enrollment reason:Identified using discharge data End date:05/11/2025 Close reason:Actively enrolled in CCM Overview Discharged from [facility] on 05/10. Please contact within 2 days of discharge for ERTOC and schedule a follow-up appointment if needed. Continued Care and Services Coordination
--- NOTE | 2025-05-18 12:29 | ECG_ITS ---
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 Measurements Intervals [place] Rate: 57 P: 67 CT: 158 QRS: 30 QRSD: 74 T: 38 QT: 424 QTc: 419 Interpretive Statements 1100 Sinus rhythm 8102 Low QRS voltage in chest leads 9120 atypical ECG Compared to ECG 05/18/2025 10:12:13 No significant changes Electronically Signed On 05-18-2025 18:12:18 EST by ZENIA FUNES M.D.
[2025-05-18] MEDS: ASPIRIN 81 MG TAB.CHEW 324 MG PO (12:36)
[2025-05-18 13:00] LABS: Partial Thromboplastin Time 30.0 sec (22.3-36.2)
[2025-05-18] MEDS: HEPARIN SODIUM,PORCINE/D5W 25,000 UNIT/500 ML IV.SOLN 18.12 UNIT IV (13:01)
[2025-05-18] MEDS: HEPARIN SODIUM (PORCINE) 5,000 UNIT/ML VIAL 2640 UNIT IV (13:01)
== END 2025-05-18 14:40 | disposition short-term general hospital (02) ==
PROVIDERS: Emergency Provider Emergency Medicine; PCP Internal Medicine
DX: I21.4 Non-ST elevation (NSTEMI) myocardial infarction (principal); R07.89 Other chest pain; I10 Essential (primary) hypertension; E78.5 Hyperlipidemia, unspecified; E11.9 Type 2 diabetes mellitus without complications; I25.10 Atherosclerotic heart disease of native coronary artery without angina pectoris; I25.2 Old myocardial infarction; Z79.84 Long term (current) use of oral hypoglycemic drugs
CPT/HCPCS: 36415; 71045; 80053; 83735; 84484; 85025; 85610; 85730; 93005; 96374; 96375; 99285; J1644; J3490